=== PATIENT | male | born 1940 | race African-American/Black ===

== ENCOUNTER 2018-01-04 04:35 | Inpatient (IN) | payer MEDICARE, OTHER ==
[2018-01-04] VITALS (7 sets, daily range): BP systolic 105–130; BP diastolic 58–75
[~2018-01-04] VITALS: Ht 177.8 cm; Wt 65.8 kg
[~2018-01-04 04:35] MED LIST: ACETAMINOPHEN-1 EAC1 ORAL; AMLODIPINE BESYL5 MG ORAL; AMLODIPINE BESYL5 MG PO; BACTRIM DS TAB1 EAC1 ORAL; BACTRIM-DS1 EA ORAL; BACTRIM-DS1 EA PO; CEPHALEXIN500 MG PO; CIPROFLOXACIN500 M2 ORAL; CLOBETASOL EMOL15 GM TP; CLOTRIM ANTIFUN15 GM TP; COZAAR50 MG PO; FLOMAX0.4 MG PO; HYZAAR 100-251 EACH PO; KEFLEX500 M1 GT; KENALOG 0.1% CR15 GM APPLIC; MARINOL2.5 MG ORAL; NEURONTIN600 MG PO; NORCO 10/3251 EA ORAL; VIBRAMYCIN100 MG ORAL; VICODIN 5-5001 EACH PO; VITAMIN D250000 UNI1 ORAL; [UNRECOGNIZED DRUG - CODE] PO
[2018-01-04] MEDS ORDERED: Acetaminophen 650mg/20.3ml ONE (04:40)
[2018-01-04] MEDS ORDERED: Acetaminophen 650mg/20.3ml GT STA (04:43)
[2018-01-04] MEDS ORDERED: Acetaminophen 500mg (ES) tab ORAL ONE (04:45)
--- NOTE | 2018-01-04 05:00 | Emergency Room Report ---
History of Present Illness General Chief Complaint: Dyspnea/Respdistress Source: Family Member, Medical Record, EMS Present Illness HPI This is a 77-year-old male from shelter. He has a history of hypertension and previous CVA. He is contracted. He is a full code. He presents with chief complaint of shortness of breath. Onset today. Unknown fever. No nausea no vomiting. Per EMS he was hypoxic at 90% on room air. He received breathing treatment was putting up his oxygenation. No nausea no vomiting. No chest pain. History is limited because he is nonverbal. Allergies: Coded Allergies: HYDROMORPHONE (Unverified Allergy, Unknown, 01/04/18) Patient History Past Medical History: see triage record, old chart reviewed, HTN, CAD Past Surgical History: other Pertinent Family History: none Social History: Denies: smoking Immunizations: other Reviewed Nursing Documentation: PMH: Agreed, PSxH: Agreed Nursing Documentation-PMH Past Medical History: No History, Except For Hx Cardiac Problems: Yes Hx Hypertension: Yes Hx Cancer: No Hx Gastrointestinal Problems: No Hx Neurological Problems: No Hx Cerebrovascular Accident: Yes Review of Systems Eye: Denies: eye pain, blurred vision ENT: Denies: ear pain, nose congestion, throat swelling Respiratory: Reports: cough, shortness of breath Cardiovascular: Denies: chest pain, palpitations Gastrointestinal: Denies: abdominal pain, diarrhea, nausea, vomiting Musculoskeletal: Denies: back pain, joint pain Skin: Denies: rash Neurological: Denies: headache, numbness Endocrine: Denies: increased thirst, increased urine Hematologic/Lymphatic: Denies: easy bruising All Other Systems: negative except mentioned in HPI Physical Exam Vital Signs Date Time Temp Pulse Resp B/P (MAP) Pulse Ox O2 Delivery O2 Flow Rate FiO2 01/04/18 04:29 100.4 114 16 119/72 99 Room Air 100.4 vitals with fever, tachycardia Sp02 EP Interpretation: abnormal - repeat pulse ox is 92% on RA General Appearance: mild distress, Chronically Ill Head: normocephalic, atraumatic Eyes: bilateral eye PERRL, bilateral eye EOMI ENT: hearing grossly normal, normal pharynx Neck: no meningismus, limited range of motion - secondary to degenerative changes Respiratory: chest non-tender, respiratory distress, decreased breath sounds, accessory muscle use, crackles Cardiovascular #1: regular rate, rhythm, no murmur, tachycardia Gastrointestinal: normal bowel sounds, non tender, no mass, no organomegaly, no bruit, non-distended Musculoskeletal: back normal Neurologic: alert Psychiatric: mood/affect normal Skin: warm/dry Procedures Critical Care Time Critical Care Time Critical care is mandated in this patient who presented with respiratory distress secondary to pneumonia. Patient require my urgent intervention to attenuate the risks of metabolic collapse which may lead to cardiovascular collapse and . Critical care time is 35 minutes excluding any reportable procedure. Critical care time included evaluation, multiple reevaluation, looking at old charts, interpreting laboratory and diagnostic data, discussing case with patient and family and consultants, and charting. Medical Decision Making Diagnostic Impression: Primary Impression: Hospital-acquired pneumonia Additional Impression: Sepsis Qualified Codes: A41.9 - Sepsis, unspecified organism ER Course Patient presents with sepsis from pneumonia. I cover him for hospital-acquired pneumonia. Oxygenation much better now. Mentation better after IV fluid. I discussed case with Dr. Armando who accepted pt for admission. Sepsis reevaluation Time: 6 AM Vital signs: Temperature 98, heart rate 100, blood pressure 109/62, respiration 18, oxygenation 100% on 2 L Mental status: More alert and responsive Cardiovascular: Regular rate and rhythm Lungs: Good air movement no wheezing Abdomen: Soft Extremity: No edema Skin: No mottling Laboratory Tests Test 01/04/18 04:45 01/04/18 05:15 White Blood Count 5.9 K/UL (4.8-10.8) Red Blood Count 4.15 M/UL (4.70-6.10) L Hemoglobin 12.8 G/DL (14.2-18.0) L Hematocrit 38.8 % (42.0-52.0) L Mean Corpuscular Volume 93 FL (80-99) Mean Corpuscular Hemoglobin 30.8 PG (27.0-31.0) Mean Corpuscular Hemoglobin Concent 33.0 G/DL (32.0-36.0) Red Cell Distribution Width 13.3 % (11.6-14.8) Platelet Count 324 K/UL (150-450) Mean Platelet Volume 8.0 FL (6.5-10.1) Neutrophils (%) (Auto) 76.1 % (45.0-75.0) H Lymphocytes (%) (Auto) 13.8 % (20.0-45.0) L Monocytes (%) (Auto) 8.6 % (1.0-10.0) Eosinophils (%) (Auto) 0.3 % (0.0-3.0) Basophils (%) (Auto) 1.2 % (0.0-2.0) Prothrombin Time 10.4 SEC (9.30-11.50) Prothromb Time International Ratio 1.0 (0.9-1.1) Sodium Level 130 MMOL/L (136-145) L Potassium Level 3.7 MMOL/L (3.5-5.1) Chloride Level 96 MMOL/L (98-107) L Carbon Dioxide Level 23 MMOL/L (21-32) Anion Gap 12 mmol/L (5-15) Blood Urea Nitrogen 25 mg/dL (7-18) H Creatinine 0.9 MG/DL (0.55-1.30) Estimat Glomerular Filtration Rate mL/min (>60) Glucose Level 147 MG/DL (74-106) H Lactic Acid Level 1.80 mmol/L (0.66-2.22) Calcium Level 8.7 MG/DL (8.5-10.1) Total Bilirubin 0.5 MG/DL (0.2-1.0) Aspartate Amino Transf (AST/SGOT) 47 U/L (15-37) H Alanine Aminotransferase (ALT/SGPT) 74 U/L (12-78) Alkaline Phosphatase 91 U/L (46-116) Total Creatine Kinase 58 U/L (26-308) Creatine Kinase MB < 0.5 NG/ML (0.0-3.6) Creatine Kinase MB Relative Index 0.8 Troponin I 0.021 ng/mL (0.000-0.056) Total Protein 8.3 G/DL (6.4-8.2) H Albumin 2.9 G/DL (3.4-5.0) L Globulin 5.4 g/dL Albumin/Globulin Ratio 0.5 (1.0-2.7) L Urine Color Pending Urine Appearance Pending Urine pH Pending Urine Specific [place] Pending Urine Protein Pending Urine Glucose (UA) Pending Urine Ketones Pending Urine Occult Blood Pending Urine Nitrite Pending Urine Bilirubin Pending Urine Urobilinogen Pending Urine Leukocyte Esterase Pending Lab Results Impression labs unremarkable EKG Diagnostic Results Rate: tachycardiac Rhythm: NSR ST Segments: other - Poor R wave progression Rhythm Strip Diag. Results Rhythm Strip Time: 05:00 EP Interpretation: yes Rate: 100 Rhythm: NSR, no PVC's, no ectopy Chest X-Ray Diagnostic Results Chest X-Ray Diagnostic Results : Chest X-Ray Ordered: Yes # of Views/Limited/Complete: 1 View Indication: Shortness of Breath EP Interpretation: Yes Interpretation: no effusion, no pneumothorax, other - RUL infiltrate Impression: Other - RUL infiltrate Electronically Signed by: Connor Trammell MD Last Vital Signs Date Time Temp Pulse Resp B/P (MAP) Pulse Ox O2 Delivery O2 Flow Rate FiO2 01/04/18 04:29 100.4 114 16 119/72 99 Room Air 100.4 Status: improved Disposition: ADMITTED INPATIENT Condition: Serious CONNOR TRAMMELL M.D. Jan 04, 2018 05:00
[2018-01-04] MEDS ORDERED: Cefepime HCl 1 GM in D5W 55 ML IVPB ONE (05:15)
[2018-01-04 05:18] LABS: BASOPHILS % (AUTO) 1.2 % (0.0-2.0); EOSINOPHILS % (AUTO) 0.3 % (0.0-3.0); HEMATOCRIT 38.8 % (42.0-52.0); HEMOGLOBIN 12.8 G/DL (14.2-18.0); LYMPHOCYTES % (AUTO) 13.8 % (20.0-45.0); MEAN CORPUSCULAR VOLUME 93 FL (80-99); MONOCYTES % (AUTO) 8.6 % (1.0-10.0); NEUTROPHILS % (AUTO) 76.1 % (45.0-75.0); PLATELET COUNT 324 K/UL (150-450); RED BLOOD COUNT 4.15 M/UL (4.70-6.10); RED CELL DISTRIBUTION WIDTH 13.3 % (11.6-14.8); WHITE BLOOD COUNT 5.9 K/UL (4.8-10.8)
[2018-01-04 05:29] LABS: APPEARANCE,URINE CLEAR; BILIRUBIN, URINE NEGATIVE (NEGATIVE); GLUCOSE, URINE (UA) NEGATIVE (NEGATIVE); KETONES,URINE NEGATIVE (NEGATIVE); LEUKOCYTE ESTERASE ,URINE 1+ (NEGATIVE); NITRITE,URINE NEGATIVE (NEGATIVE); PH,URINE 5 (4.5-8.0); PROTEIN,URINE 2+ (NEGATIVE); UROBILINOGEN,URINE 1 MG/DL (0.0-1.0)
[2018-01-04] MEDS ORDERED: Cefepime 1gm vial ONE (05:29)
[2018-01-04 05:33] LABS: ANION GAP 12 mmol/L (5-15); BLOOD UREA NITROGEN 25 mg/dL (7-18); CALCIUM 8.7 MG/DL (8.5-10.1); CARBON DIOXIDE 23 MMOL/L (21-32); CHLORIDE 96 MMOL/L (98-107); CREATININE 0.9 MG/DL (0.55-1.30); POTASSIUM 3.7 MMOL/L (3.5-5.1); SODIUM 130 MMOL/L (136-145)
[2018-01-04 05:47] LABS: ALANINE AMINOTRANSFERASE 74 U/L (12-78); ALBUMIN 2.9 G/DL (3.4-5.0); ALBUMIN/GLOBULIN RATIO 0.5 (1.0-2.7); ALKALINE PHOSPHATASE 91 U/L (46-116); ASPARTATE AMINO TRANSFERASE 47 U/L (15-37); BILIRUBIN,TOTAL 0.5 MG/DL (0.2-1.0); CKMB < 0.5 NG/ML (0.0-3.6); CREATINE KINASE 58 U/L (26-308)
[2018-01-04 06:01] LABS: COLOR,URINE YELLOW
[2018-01-04] MEDS ORDERED: MILK OF MA400 MG/51 GT (06:08)
[2018-01-04] MEDS ORDERED: BACLOFEN10 MG GT (06:08)
[2018-01-04] MEDS ORDERED: BISACODYL5 MG RC (06:08)
[2018-01-04] MEDS ORDERED: TYLENOL EXTRA500 MG GT (06:08)
[2018-01-04] MEDS ORDERED: PROSCAR5 MG GT (06:08)
[2018-01-04] MEDS ORDERED: CHLORASEPTIC1 SPRAY ORAL (06:08)
[2018-01-04] MEDS ORDERED: DICLOFENAC SODI25 MG TP (06:08)
[2018-01-04] MEDS ORDERED: OMEPRAZOLE20 M2 GT (06:08)
[2018-01-04] MEDS ORDERED: ACIDOPHILUS PR0.5 MG PO (06:08)
[2018-01-04] MEDS ORDERED: CRESTOR20 MG GT (06:08)
[2018-01-04] MEDS ORDERED: MULTIVITAMINS1 EA13 GT (06:08)
[2018-01-04] MEDS ORDERED: PLAVIX75 MG GT (06:08)
[2018-01-04] MEDS ORDERED: GABAPENTIN100 MG GT (06:08)
[2018-01-04] MEDS ORDERED: DOCUSATE SODIU100 MG GT (06:08)
[2018-01-04] MEDS ORDERED: TAMSULOSIN HCL0.4 MG GT (06:08)
[2018-01-04] MEDS ORDERED: ACETAMINOPHEN-1 EAC1 ORAL (06:08)
[2018-01-04] MEDS ORDERED: VIBRAMYCIN100 MG GT (06:08)
[2018-01-04] MEDS ORDERED: SENNA8.6 M2 GT (06:08)
[2018-01-04] MEDS ORDERED: IPRATROPIU0.2 MG/1 M HHN (06:08)
[2018-01-04] MEDS ORDERED: ZOSYN MISC PRN (09:30)
[2018-01-04] MEDS ORDERED: Tylenol #3 tab (300mg/30mg) ORAL PRN (09:30)
[2018-01-04] MEDS ORDERED: Ipratropium 0.02% Inh Soln 2.5ml UD HHN PRN (09:30)
--- NOTE | 2018-01-04 12:05 | Neurology Progress Note ---
Objective Physical Exam Last Vital Signs Date Time Temp Pulse Resp B/P (MAP) Pulse Ox O2 Delivery O2 Flow Rate FiO2 01/04/18 07:46 99.5 107 17 118/73 100 Nasal Cannula 2.0 99.5 Laboratory Tests Test 01/04/18 04:45 01/04/18 05:15 White Blood Count 5.9 K/UL (4.8-10.8) Red Blood Count 4.15 M/UL (4.70-6.10) L Hemoglobin 12.8 G/DL (14.2-18.0) L Hematocrit 38.8 % (42.0-52.0) L Mean Corpuscular Volume 93 FL (80-99) Mean Corpuscular Hemoglobin 30.8 PG (27.0-31.0) Mean Corpuscular Hemoglobin Concent 33.0 G/DL (32.0-36.0) Red Cell Distribution Width 13.3 % (11.6-14.8) Platelet Count 324 K/UL (150-450) Mean Platelet Volume 8.0 FL (6.5-10.1) Neutrophils (%) (Auto) 76.1 % (45.0-75.0) H Lymphocytes (%) (Auto) 13.8 % (20.0-45.0) L Monocytes (%) (Auto) 8.6 % (1.0-10.0) Eosinophils (%) (Auto) 0.3 % (0.0-3.0) Basophils (%) (Auto) 1.2 % (0.0-2.0) Prothrombin Time 10.4 SEC (9.30-11.50) Prothromb Time International Ratio 1.0 (0.9-1.1) Sodium Level 130 MMOL/L (136-145) L Potassium Level 3.7 MMOL/L (3.5-5.1) Chloride Level 96 MMOL/L (98-107) L Carbon Dioxide Level 23 MMOL/L (21-32) Anion Gap 12 mmol/L (5-15) Blood Urea Nitrogen 25 mg/dL (7-18) H Creatinine 0.9 MG/DL (0.55-1.30) Estimat Glomerular Filtration Rate mL/min (>60) Glucose Level 147 MG/DL (74-106) H Lactic Acid Level 1.80 mmol/L (0.66-2.22) Calcium Level 8.7 MG/DL (8.5-10.1) Total Bilirubin 0.5 MG/DL (0.2-1.0) Aspartate Amino Transf (AST/SGOT) 47 U/L (15-37) H Alanine Aminotransferase (ALT/SGPT) 74 U/L (12-78) Alkaline Phosphatase 91 U/L (46-116) Total Creatine Kinase 58 U/L (26-308) Creatine Kinase MB < 0.5 NG/ML (0.0-3.6) Creatine Kinase MB Relative Index 0.8 Troponin I 0.021 ng/mL (0.000-0.056) Total Protein 8.3 G/DL (6.4-8.2) H Albumin 2.9 G/DL (3.4-5.0) L Globulin 5.4 g/dL Albumin/Globulin Ratio 0.5 (1.0-2.7) L Urine Color Yellow Urine Appearance Clear Urine pH 5 (4.5-8.0) Urine Specific [place] 1.020 (1.005-1.035) Urine Protein 2+ (NEGATIVE) H Urine Glucose (UA) Negative (NEGATIVE) Urine Ketones Negative (NEGATIVE) Urine Occult Blood 1+ (NEGATIVE) H Urine Nitrite Negative (NEGATIVE) Urine Bilirubin Negative (NEGATIVE) Urine Urobilinogen 1 MG/DL (0.0-1.0) H Urine Leukocyte Esterase 1+ (NEGATIVE) H Urine RBC 0-2 /HPF (0 - 0) H Urine WBC 0-2 /HPF (0 - 0) Urine Squamous Epithelial Cells None /LPF (NONE/OCC) Urine Bacteria Few /HPF (NONE) Impression/Recommendations Problems: (1) s/p multiple strokes with global aphasia, 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
--- NOTE | 2018-01-04 12:09 | Diagnostic Imaging Report ---
Indication: Shortness of breath Technique: One view of the chest Comparison: 02/24/2016 Findings: Exam is hypoventilatory with crowding of the bronchovascular markings at the lung bases. Lungs and pleural spaces are clear. The heart size is upper limits normal Impression: Hypoventilatory exam. No definite acute process
[2018-01-04] MEDS: Multivitamin w/Minerals tab ORAL SCH (13:11)
--- NOTE | 2018-01-04 14:19 | General Progress Note ---
Assessment/Plan Status Narrative admmitd tfor pneumina had fever chest xray nopnuem,onia hisotyro mrsa awit further rec id will do blood urine culture on broad spectrum antibviotic Subjective Allergies: Coded Allergies: HYDROMORPHONE (Unverified Allergy, Unknown, 01/04/18) Subjective patient has vbeen coughing no fever now had temp of 102 no palpitation no headache Objective Last 24 Hour Vital Signs Date Time Temp Pulse Resp B/P (MAP) Pulse Ox O2 Delivery O2 Flow Rate FiO2 01/04/18 07:46 99.5 107 17 118/73 100 Nasal Cannula 2.0 99.5 01/04/18 07:31 99.5 107 17 118/73 100 Nasal Cannula 2.0 99.5 01/04/18 07:27 99.5 01/04/18 06:21 106 19 117/61 100 Nasal Cannula 2.0 01/04/18 04:56 100.4 01/04/18 04:40 107 18 Nasal Cannula 2.0 01/04/18 04:40 100.9 107 18 125/72 100 Nasal Cannula 2.0 100.9 01/04/18 04:29 100.4 114 16 119/72 99 Room Air 100.4 Intake and Output 01/03/18 01/04/18 19:00 07:00 Intake Total 2200 ml Output Total 100 ml Balance 2100 ml Intake IV Total 2200 ml Output Urine Total 100 ml Laboratory Tests 01/04/18 04:45: White Blood Count 5.9, Red Blood Count 4.15L, Hemoglobin 12.8L, Hematocrit 38.8L , Mean Corpuscular Volume 93, Mean Corpuscular Hemoglobin 30.8, Mean Corpuscular Hemoglobin Concent 33.0, Red Cell Distribution Width 13.3, Platelet Count 324, Mean Platelet Volume 8.0, Neutrophils (%) (Auto) 76.1H, Lymphocytes ( %) (Auto) 13.8L, Monocytes (%) (Auto) 8.6, Eosinophils (%) (Auto) 0.3, Basophils (%) (Auto) 1.2, Prothrombin Time 10.4, Prothromb Time International Ratio 1.0, Sodium Level 130L, Potassium Level 3.7, Chloride Level 96L, Carbon Dioxide Level 23, Anion Gap 12, Blood Urea Nitrogen 25H, Creatinine 0.9, Estimat Glomerular Filtration Rate , Glucose Level 147H, Lactic Acid Level 1.80 , Calcium Level 8.7, Total Bilirubin 0.5, Aspartate Amino Transf (AST/SGOT) 47H , Alanine Aminotransferase (ALT/SGPT) 74, Alkaline Phosphatase 91, Total Creatine Kinase 58, Creatine Kinase MB < 0.5, Creatine Kinase MB Relative Index 0.8, Troponin I 0.021, Total Protein 8.3H, Albumin 2.9L, Globulin 5.4, Albumin/ Globulin Ratio 0.5L 01/04/18 05:15: Urine Color Yellow, Urine Appearance Clear, Urine pH 5, Urine Specific [place] 1.020, Urine Protein 2+H, Urine Glucose (UA) Negative, Urine Ketones Negative, Urine Occult Blood 1+H, Urine Nitrite Negative, Urine Bilirubin Negative, Urine Urobilinogen 1H, Urine Leukocyte Esterase 1+H, Urine RBC 0-2H, Urine WBC 0-2, Urine Squamous Epithelial Cells None, Urine Bacteria Few Height (Feet): 5 Height (Inches): 10.00 Weight (Pounds): 145 General Appearance: WD/WN EENT: PERRL/EOMI Neck: non-tender Cardiovascular: normal rate, no JVD Respiratory/Chest: lungs clear Abdomen: non tender, soft, other - has g tuber in place YANELY HAYS Jan 04, 2018 14:19
[2018-01-04] MEDS: Zoysn 3.37gm in NS 100ML IVPB SCH ×2 (14:51→19:56)
[2018-01-04] MEDS: Gabapentin 300 MG/6 ML Soln GT SCH ×2 (14:52→18:12)
--- NOTE | 2018-01-04 14:53 | Consultation ---
Consult Note Assessment/Plan Renal consult dictated # [id number] WHIT TAYLOR Jan 04, 2018 14:53
--- NOTE | 2018-01-04 15:43 | GI Initial Consult Note ---
Ivy Trammelloi N.P. 01/04/18 1543: History of Present Illness General Date patient seen: Jan 04, 2018 Time patient seen: 15:34 Reason for Hospitalization: Dyspnea/Respdistress Referring physician: YANELY HAYS Reason for Consultation: GT MANAGEMENT Present Illness HPI This is a 77-year-old male from skilled nursing. He has a history of hypertension and previous CVA. He is contracted. He is a full code. He presents with chief complaint of shortness of breath. Onset today. Unknown fever. No nausea no vomiting. Per EMS he was hypoxic at 90% on room air. He received breathing treatment was putting up his oxygenation. No nausea no vomiting. No chest pain. History is limited because he is nonverbal. GI consulted for GT management. ROS limited, pt seen on floor sleeping NAD with no active s/sx of N/V/D. GT noted c/d/i. Patient presents today with mild anemia and mild AST elevation. GT was placed last year. POLST, labs, imaging studies reviewed. Home Meds Active Scripts Clotrimazole (Clotrimazole) 15 Gm Cream..g., 1 GM TP TID, #60 GM 1 Refill Prov:NoccatherineCarey P.A. 08/14/15 Cephalexin (Cephalexin) 500 Mg Cap, 500 MG GT QID, #40 CAP Prov:Don Mcgrathyla P.A. 08/14/15 Trimethoprim/Sulfamethoxazole (Bactrim Ds Tablet) 1 Ea Tab, 1 TAB ORAL TWICE A DAY, #20 TAB Prov:NocDon alexanderCarey P.A. 08/14/15 Trimethoprim/Sulfamethoxazole 160/800* (BACTRIM DS TABLET*) 1 Each Tablet, 1 TAB ORAL Q12H, #14 TAB Prov:Yusuf Merchant MD 04/26/14 Reported Medications Cefepime Hcl/D5w (CEFEPIME-DEXTROSE 2 GM/50 ML) 2 Gm/50 Ml Piggyback, 2 GM IVPB EVERY 12 HOURS for 7 Days, BAG 01/09/18 Atorvastatin Calcium* (ATORVASTATIN CALCIUM*) 20 Mg Tablet, 20 MG ORAL BEDTIME, TAB 01/09/18 Codeine/Promethazine Hcl* (PROMETHAZINE-CODEINE SYRUP*) 118 Ml Syrup, 5 ML ORAL Q4H Y for For Cough, ML 0 Refills 01/09/18 Lansoprazole* (LANSOPRAZOLE*) 30 Mg Capsule.dr, 30 MG GT DAILY, CAP 01/09/18 Theophylline (THEODUR*) 100 Mg Tab.er.12h, 100 MG ORAL Q12HR, #30 TAB 0 Refills 01/09/18 Diclofenac Sod* (VOLTAREN*) 25 Mg Tablet.dr, 2 GM TP THREE TIMES A DAY, TAB 01/04/18 Bisacodyl* (DULCOLAX*) 5 Mg Tablet.dr, 10 MG RC NEEDED, #4 TAB 0 Refills 01/04/18 Gabapentin* (GABAPENTIN*) 100 Mg Capsule, 250 MG GT THREE TIMES A DAY, CAP 01/04/18 Magnesium Hydroxide* (MILK OF MAGNESIA*) 400 Mg/5 Ml Oral.susp, 30 ML GT DAILY, ML 01/04/18 Tamsulosin Hcl (TAMSULOSIN HCL*) 0.4 Mg Cap.er.24h, 0.4 MG GT BEDTIME, CAP 01/04/18 Finasteride* (PROSCAR*) 5 Mg Tablet, 5 MG GT DAILY, #30 TAB 0 Refills 01/04/18 Chloraseptic [place] (Sm Sore Throat [place]) 177 Ml [place], 5 SPRAY ORAL EVERY 2 HOURS, SPRAY 01/04/18 Acetaminophen* (TYLENOL EXTRA STRENGTH*) 500 Mg Tablet, 325 MG GT Q6H Y for Mild Pain/Temp > 100.5, TAB 0 Refills 01/04/18 Acetaminophen With Codeine (T#3) (TYLENOL #3 TAB*) Y Tab, 1 TAB ORAL Q6H Y for For Pain, TAB 01/04/18 Doxycycline Hyclate* (VIBRAMYCIN*) 100 Mg Capsule, 100 MG GT EVERY 12 HOURS, # 14 CAP 0 Refills 01/04/18 Omeprazole (OMEPRAZOLE) 20 Mg Capsule.dr, 20 MG GT DAILY, CAP 01/04/18 Baclofen* (BACLOFEN*) 10 Mg Tablet, 5 MG GT THREE TIMES A DAY, TAB 01/04/18 Docusate Sodium* (DOCUSATE SODIUM*) 100 Mg Capsule, 100 MG GT BID for Constipation, CAP 01/04/18 Rosuvastatin Calcium* (CRESTOR*) 20 Mg Tablet, 20 MG GT BEDTIME, TAB 01/04/18 Multivitamin with Minerals (Multivitamins with Minerals) 1 Each Tablet, 1 TAB GT DAILY, TAB 01/04/18 Lactobacillus Acidophilus (ACIDOPHILUS PROBIOTIC) 0.5 Mg Tablet, 1 MG PO, TAB 01/04/18 Ipratropium [place] 0.5MG/2.5ML (IPRATROPIUM BROMIDE 0.5MG/2.5ML) 0.2 Mg/1 Ml Solution, 0.5 MG HHN Q6H Y for Shortness of Breath, #28 EA 01/04/18 Clopidogrel Bisulfate* (PLAVIX*) 75 Mg Tablet, 75 MG GT DAILY, TAB 01/04/18 Sennosides (SENNA) 8.6 Mg Tablet, 8.6 MG GT DAILY for Constipation, TAB 01/04/18 Acetaminophen With Codeine (T#3) (TYLENOL #3 TAB*) Y Tab, 1 TAB ORAL Q4H Y for For Pain, TAB 02/24/16 Vit B Complex 100 Cmb #3/Herbs (BALANCED B-100 TABLET) 100 Mg Tablet, 100 MG PO , TAB 02/24/16 Ergocalciferol (Vitamin D2)* (VITAMIN D*) 50,000 Unit Capsule, 16867 UNIT ORAL ONCE A WEEK, CAP 02/24/16 Dronabinol* (MARINOL*) 2.5 Mg Capsule, 2.5 MG ORAL THREE TIMES A DAY, #15 CAP 0 Refills 01/18/15 Clobetasol Propionate/Emoll (CLOBETASOL EMOLLIENT 0.05% CRM) 15 Gm Cream..g., 15 GM TP BID, GM 01/14/15 Doxycycline Hyclate* (VIBRAMYCIN*) 100 Mg Capsule, 100 MG ORAL BID, #14 CAP 0 Refills 01/14/14 Amlodipine Besylate* (AMLODIPINE BESYLATE*) 5 Mg Tablet, 5 MG PO DAILY, #10 TAB Take one tablet by mouth daily 08/07/12 Losartan Potassium* (COZAAR*) 50 Mg Tablet, 50 MG PO DAILY, #20 TAB Take 1 tablet by mouth every 12 hours. 08/07/12 Gabapentin* (NEURONTIN*) 600 Mg Tablet, 600 MG PO Q8H, #20 TAB Take 1 tablet by mouth every 8 hours. 08/07/12 Med list reviewed/reconciled: Yes Allergies: Coded Allergies: HYDROMORPHONE (Unverified Allergy, Unknown, 01/04/18) Patient History Limited by: medical condition History Provided By: Medical Record PMH Narrative Past Medical History: see triage record, old chart reviewed, HTN, CAD Past Surgical History: other Pertinent Family History: none Social History: Denies: smoking Immunizations: other Reviewed Nursing Documentation: PMH: Agreed, PSxH: Agreed Nursing Documentation-PMH Past Medical History: No History, Except For Hx Cardiac Problems: Yes Hx Hypertension: Yes Hx Cancer: No Hx Gastrointestinal Problems: No Hx Neurological Problems: No Hx Cerebrovascular Accident: Yes Review of Systems All Other Systems: limited Physical Exam Vital Signs Date Time Temp Pulse Resp B/P (MAP) Pulse Ox O2 Delivery O2 Flow Rate FiO2 01/04/18 04:29 100.4 114 16 119/72 99 Room Air 100.4 01/04/18 04:40 2.0 Labs Laboratory Tests Test 01/04/18 04:45 01/04/18 05:15 White Blood Count 5.9 K/UL (4.8-10.8) Red Blood Count 4.15 M/UL (4.70-6.10) L Hemoglobin 12.8 G/DL (14.2-18.0) L Hematocrit 38.8 % (42.0-52.0) L Mean Corpuscular Volume 93 FL (80-99) Mean Corpuscular Hemoglobin 30.8 PG (27.0-31.0) Mean Corpuscular Hemoglobin Concent 33.0 G/DL (32.0-36.0) Red Cell Distribution Width 13.3 % (11.6-14.8) Platelet Count 324 K/UL (150-450) Mean Platelet Volume 8.0 FL (6.5-10.1) Neutrophils (%) (Auto) 76.1 % (45.0-75.0) H Lymphocytes (%) (Auto) 13.8 % (20.0-45.0) L Monocytes (%) (Auto) 8.6 % (1.0-10.0) Eosinophils (%) (Auto) 0.3 % (0.0-3.0) Basophils (%) (Auto) 1.2 % (0.0-2.0) Prothrombin Time 10.4 SEC (9.30-11.50) Prothromb Time International Ratio 1.0 (0.9-1.1) Sodium Level 130 MMOL/L (136-145) L Potassium Level 3.7 MMOL/L (3.5-5.1) Chloride Level 96 MMOL/L (98-107) L Carbon Dioxide Level 23 MMOL/L (21-32) Anion Gap 12 mmol/L (5-15) Blood Urea Nitrogen 25 mg/dL (7-18) H Creatinine 0.9 MG/DL (0.55-1.30) Estimat Glomerular Filtration Rate mL/min (>60) Glucose Level 147 MG/DL (74-106) H Lactic Acid Level 1.80 mmol/L (0.66-2.22) Calcium Level 8.7 MG/DL (8.5-10.1) Total Bilirubin 0.5 MG/DL (0.2-1.0) Aspartate Amino Transf (AST/SGOT) 47 U/L (15-37) H Alanine Aminotransferase (ALT/SGPT) 74 U/L (12-78) Alkaline Phosphatase 91 U/L (46-116) Total Creatine Kinase 58 U/L (26-308) Creatine Kinase MB < 0.5 NG/ML (0.0-3.6) Creatine Kinase MB Relative Index 0.8 Troponin I 0.021 ng/mL (0.000-0.056) Total Protein 8.3 G/DL (6.4-8.2) H Albumin 2.9 G/DL (3.4-5.0) L Globulin 5.4 g/dL Albumin/Globulin Ratio 0.5 (1.0-2.7) L Urine Color Yellow Urine Appearance Clear Urine pH 5 (4.5-8.0) Urine Specific [place] 1.020 (1.005-1.035) Urine Protein 2+ (NEGATIVE) H Urine Glucose (UA) Negative (NEGATIVE) Urine Ketones Negative (NEGATIVE) Urine Occult Blood 1+ (NEGATIVE) H Urine Nitrite Negative (NEGATIVE) Urine Bilirubin Negative (NEGATIVE) Urine Urobilinogen 1 MG/DL (0.0-1.0) H Urine Leukocyte Esterase 1+ (NEGATIVE) H Urine RBC 0-2 /HPF (0 - 0) H Urine WBC 0-2 /HPF (0 - 0) Urine Squamous Epithelial Cells None /LPF (NONE/OCC) Urine Bacteria Few /HPF (NONE) Gastrointestinal: gt - c/d/i Current Medications Current Medications Medications (Trade) Dose Ordered Sig/Nelson Route PRN Reason Start Time Stop Time Status Last Admin Dose Admin Acetaminophen (Tylenol) 650 mg Q6H PRN ORAL Mild Pain/Temp > 100.5 01/04/18 09:30 02/03/18 09:29 Acetaminophen/ Codeine Phosphate (Tylenol #3) 1 tab Q4H PRN ORAL Pain Scale (6-10) 01/04/18 09:30 01/11/18 09:29 Amlodipine Besylate (Norvasc) 5 mg DAILY GT 01/05/18 09:00 02/04/18 08:59 Atorvastatin Calcium (Lipitor) 20 mg BEDTIME ORAL 01/04/18 21:00 02/03/18 20:59 Baclofen (Lioresal) 5 mg THREE TIMES A DAY GT 01/04/18 13:00 02/03/18 12:59 01/04/18 13:11 Clopidogrel Bisulfate (Plavix) 75 mg DAILY GT 01/04/18 11:00 02/03/18 10:59 01/04/18 13:11 Docusate Sodium (Colace) 100 mg BID GT 01/04/18 18:00 02/03/18 17:59 Doxycycline Monohydrate (Vibramycin) 100 mg Q12HR ORAL 01/04/18 11:00 01/11/18 10:59 01/04/18 13:11 Finasteride (Proscar) 5 mg DAILY ORAL 01/04/18 12:30 02/03/18 12:29 01/04/18 13:13 Gabapentin (Neurontin) 250 mg THREE TIMES A DAY GT 01/04/18 13:00 02/03/18 12:59 01/04/18 14:52 Ipratropium [place] (Atrovent) 500 mcg Q6H PRN HHN Shortness of Breath 01/04/18 09:30 01/09/18 09:29 Lactobacillus Acidophilus (Culturelle) 1 tab TWICE A DAY ORAL 01/04/18 18:00 02/03/18 17:59 Lansoprazole (Prevacid) 30 mg DAILY GT 01/05/18 09:00 02/04/18 08:59 Multivitamins Therapeutic (Therapeutic Multivitamin) 1 ea DAILY ORAL 01/04/18 11:00 02/03/18 10:59 01/04/18 13:11 Piperacillin Sod/ Tazobactam Sod 3.375 gm/Sodium Chloride 110 ml @ 27.5 mls/hr Q8H IVPB 01/04/18 12:00 01/11/18 11:59 01/04/18 14:51 Sennosides (Senokot) 1 tab DAILY GT 01/05/18 09:00 02/04/18 08:59 Sodium Chloride 1,000 ml @ 50 mls/hr Q20H IV 01/04/18 15:00 02/03/18 14:59 01/04/18 15:23 Sodium Chloride 1,000 ml @ 80 mls/hr [id number] IV 01/04/18 11:00 02/03/18 10:59 01/04/18 13:12 Tamsulosin HCl (Flomax) 0.4 mg BEDTIME ORAL 01/04/18 21:00 02/03/18 20:59 Vancomycin HCl (Vanco rx to dose) 1 ea DAILY PRN MISC Per rx protocol 01/04/18 09:30 02/03/18 09:29 Vancomycin HCl 1 gm/Dextrose 275 ml @ 183.708 mls/hr Q12H IVPB 01/04/18 16:00 01/09/18 15:59 Vitamin B Complex (Vitamin B Complex) 1 ea DAILY GT 01/05/18 09:00 02/04/18 08:59 GI: Plan Problems: (1) G tube feedings (2) Anemia (3) Failure to thrive Plan supportive care start GTFs per RD anemia work up OB stool r/o GI bleed monitor H&H, prn transfusions bowel regime ppi fu labs Discussed with Dr. Jennings. Thank you for this patient referral, we will follow. BILLY JENNINGS 01/11/18 1237: History of Present Illness General Reason for Hospitalization: Dyspnea/Respdistress Present Illness Home Meds Active Scripts Clotrimazole (Clotrimazole) 15 Gm Cream..g., 1 GM TP TID, #60 GM 1 Refill Prov:Noch,Carey P.A. 08/14/15 Cephalexin (Cephalexin) 500 Mg Cap, 500 MG GT QID, #40 CAP Prov:Noccatherine,Carey P.A. 08/14/15 Trimethoprim/Sulfamethoxazole (Bactrim Ds Tablet) 1 Ea Tab, 1 TAB ORAL TWICE A DAY, #20 TAB Prov:Carey Mcgrath P.A. 08/14/15 Trimethoprim/Sulfamethoxazole 160/800* (BACTRIM DS TABLET*) 1 Each Tablet, 1 TAB ORAL Q12H, #14 TAB Prov:Yusuf Merchant MD 04/26/14 Reported Medications Cefepime Hcl/D5w (CEFEPIME-DEXTROSE 2 GM/50 ML) 2 Gm/50 Ml Piggyback, 2 GM IVPB EVERY 12 HOURS for 7 Days, BAG 01/09/18 Atorvastatin Calcium* (ATORVASTATIN CALCIUM*) 20 Mg Tablet, 20 MG ORAL BEDTIME, TAB 01/09/18 Codeine/Promethazine Hcl* (PROMETHAZINE-CODEINE SYRUP*) 118 Ml Syrup, 5 ML ORAL Q4H Y for For Cough, ML 0 Refills 01/09/18 Lansoprazole* (LANSOPRAZOLE*) 30 Mg Capsule.dr, 30 MG GT DAILY, CAP 01/09/18 Theophylline (THEODUR*) 100 Mg Tab.er.12h, 100 MG ORAL Q12HR, #30 TAB 0 Refills 01/09/18 Diclofenac Sod* (VOLTAREN*) 25 Mg Tablet.dr, 2 GM TP THREE TIMES A DAY, TAB 01/04/18 Bisacodyl* (DULCOLAX*) 5 Mg Tablet.dr, 10 MG RC NEEDED, #4 TAB 0 Refills 01/04/18 Gabapentin* (GABAPENTIN*) 100 Mg Capsule, 250 MG GT THREE TIMES A DAY, CAP 01/04/18 Magnesium Hydroxide* (MILK OF MAGNESIA*) 400 Mg/5 Ml Oral.susp, 30 ML GT DAILY, ML 01/04/18 Tamsulosin Hcl (TAMSULOSIN HCL*) 0.4 Mg Cap.er.24h, 0.4 MG GT BEDTIME, CAP 01/04/18 Finasteride* (PROSCAR*) 5 Mg Tablet, 5 MG GT DAILY, #30 TAB 0 Refills 01/04/18 Chloraseptic [place] (Sm Sore Throat [place]) 177 Ml [place], 5 SPRAY ORAL EVERY 2 HOURS, SPRAY 01/04/18 Acetaminophen* (TYLENOL EXTRA STRENGTH*) 500 Mg Tablet, 325 MG GT Q6H Y for Mild Pain/Temp > 100.5, TAB 0 Refills 01/04/18 Acetaminophen With Codeine (T#3) (TYLENOL #3 TAB*) Y Tab, 1 TAB ORAL Q6H Y for For Pain, TAB 01/04/18 Doxycycline Hyclate* (VIBRAMYCIN*) 100 Mg Capsule, 100 MG GT EVERY 12 HOURS, # 14 CAP 0 Refills 01/04/18 Omeprazole (OMEPRAZOLE) 20 Mg Capsule.dr, 20 MG GT DAILY, CAP 01/04/18 Baclofen* (BACLOFEN*) 10 Mg Tablet, 5 MG GT THREE TIMES A DAY, TAB 01/04/18 Docusate Sodium* (DOCUSATE SODIUM*) 100 Mg Capsule, 100 MG GT BID for Constipation, CAP 01/04/18 Rosuvastatin Calcium* (CRESTOR*) 20 Mg Tablet, 20 MG GT BEDTIME, TAB 01/04/18 Multivitamin with Minerals (Multivitamins with Minerals) 1 Each Tablet, 1 TAB GT DAILY, TAB 01/04/18 Lactobacillus Acidophilus (ACIDOPHILUS PROBIOTIC) 0.5 Mg Tablet, 1 MG PO, TAB 01/04/18 Ipratropium [place] 0.5MG/2.5ML (IPRATROPIUM BROMIDE 0.5MG/2.5ML) 0.2 Mg/1 Ml Solution, 0.5 MG HHN Q6H Y for Shortness of Breath, #28 EA 01/04/18 Clopidogrel Bisulfate* (PLAVIX*) 75 Mg Tablet, 75 MG GT DAILY, TAB 01/04/18 Sennosides (SENNA) 8.6 Mg Tablet, 8.6 MG GT DAILY for Constipation, TAB 01/04/18 Acetaminophen With Codeine (T#3) (TYLENOL #3 TAB*) Y Tab, 1 TAB ORAL Q4H Y for For Pain, TAB 02/24/16 Vit B Complex 100 Cmb #3/Herbs (BALANCED B-100 TABLET) 100 Mg Tablet, 100 MG PO , TAB 02/24/16 Ergocalciferol (Vitamin D2)* (VITAMIN D*) 50,000 Unit Capsule, 64337 UNIT ORAL ONCE A WEEK, CAP 02/24/16 Dronabinol* (MARINOL*) 2.5 Mg Capsule, 2.5 MG ORAL THREE TIMES A DAY, #15 CAP 0 Refills 01/18/15 Clobetasol Propionate/Emoll (CLOBETASOL EMOLLIENT 0.05% CRM) 15 Gm Cream..g., 15 GM TP BID, GM 01/14/15 Doxycycline Hyclate* (VIBRAMYCIN*) 100 Mg Capsule, 100 MG ORAL BID, #14 CAP 0 Refills 01/14/14 Amlodipine Besylate* (AMLODIPINE BESYLATE*) 5 Mg Tablet, 5 MG PO DAILY, #10 TAB Take one tablet by mouth daily 08/07/12 Losartan Potassium* (COZAAR*) 50 Mg Tablet, 50 MG PO DAILY, #20 TAB Take 1 tablet by mouth every 12 hours. 08/07/12 Gabapentin* (NEURONTIN*) 600 Mg Tablet, 600 MG PO Q8H, #20 TAB Take 1 tablet by mouth every 8 hours. 08/07/12 Allergies: Coded Allergies: HYDROMORPHONE (Unverified Allergy, Unknown, 01/04/18) GI: Plan Plan The patient was seen and examined at bedside and all new and available data was reviewed in the patients chart. I agree with the above findings, impression and plan. (Patient seen earlier today. Signature stamp does not reflect patient encounter time.). - MD Valeri Vital Anh Suhas Echols Jan 04, 2018 15:43 BILLY JENNINGS Jan 11, 2018 12:37
[2018-01-04] MEDS: Vancomycin 1gm in D5W 275ml IVPB SCH (16:54)
--- NOTE | 2018-01-04 17:36 | Cardiology Report ---
APPROVED REPORT EKG Measurement Heart [id number] Sinus tachycardia Septal infarct, age undetermined Abnormal ECG
[2018-01-04] MEDS: Docusate 100mg/10ml Liq GT SCH (18:11)
[2018-01-04] MEDS: Lactobacillus-GG tablet ORAL SCH (18:11)
--- NOTE | 2018-01-04 19:00 | Consultation ---
DATE OF CONSULTATION: 01/04/2018 NEUROLOGICAL CONSULTATION CONSULTING PHYSICIAN: Bairon Ruiz M.D. REQUESTING PHYSICIAN: Segun Armando M.D. HISTORY OF PRESENT ILLNESS: The patient is a 77-year-old man, a resident of nursing facility, seen in neurological consultation to evaluate new changes in mental status, generalized weakness, increasingly shortness of breath, and fevers. Paramedics were called to the scene; he was hypoxic, 90% on room air; put on oxygen support. The patient was unable to provide with history due to his speech impairment. There was no evidence that he has nausea and vomiting. No chest pain. On arrival, there was evidence of cough, shortness of breath, temperature 100.4 degrees, blood pressure 119/72, respirations 16, and heart rate of 114. His initial workup included EKG revealing normal sinus rhythm, tachycardia. No PVC. No ectopies noted. Chest x-ray right upper lobe infiltrate. Lab work included mild anemia, hemoglobin 12.8, hematocrit 38.8. Coagulation normal. Urinalysis, 1+ leukocyte esterase and 2+ protein. Chemistry panel with elevated total protein of 8.3, albumin 2.9, blood sugar 147, BUN of 25, and sodium 130. Normal lactic acid. Normal troponin. Since admission till present, there was no evidence of paroxysmal events. PAST MEDICAL HISTORY: The patient has cerebrovascular disease, previous strokes. He is on G tube feeding. He has diabetes type 2, hypertension, GERD, benign prostatic hypertrophy, and severe osteoarthritis. MEDICATIONS: Treatment prior to admission included amlodipine, baclofen, Keflex, Plavix, Voltaren, Marinol, vitamin D, Proscar, Neurontin, losartan, magnesium, omeprazole, Crestor, tamsulosin, Bactrim, and vitamin B supplements. Following admission, the patient was placed on IV fluids and antibiotics to cover underlying infection. ALLERGIES: Hydromorphone. SOCIAL HISTORY: The patient is a resident of nursing facility, but has supportive family. No alcohol. No drug abuse. Nonsmoker. FAMILY HISTORY: Unavailable. REVIEW OF SYMPTOMS: Unable to obtain due the patient's status. PHYSICAL EXAMINATION: GENERAL: A well-developed, somewhat cachectic, ill-appearing elderly man, not in acute distress. VITAL SIGNS: Now include heart rate of 107, temperature 99.5 degrees, and blood pressure 119/73. HEENT: Head, normocephalic. There is no evidence of trauma. Eyes, ears, and throat are clear. NECK: Very rigid in all directions. MUSCULOSKELETAL: Contracted left upper and right lower extremities, diffuse rigidity. Peripheral pulses 1+ and symmetric. MENTAL STATUS: The patient is alert, has a brief eye contact. He was following few simple commands. He is nonverbal, but at times moaning and groaning. CRANIAL NERVE II: Pupils both responding to light and accommodation. Extraocular movements full range. CRANIAL NERVE V: Normal corneal responses. CRANIAL NERVE VII: Slight droop of nasolabial fold. CRANIAL NERVE VIII: Grossly normal hearing, probably decreased hearing. CRANIAL NERVES IX THROUGH XII: Tongue is in midline. Reduced gag response. The patient on G-tube feeding. MOTOR EXAMINATION: Severe diffuse rigidity with flexor contracture of left upper extremity without spontaneous movement. Rigid flexed right upper extremity with some spontaneous movement, right knee contracted with flexor contraction, and extended the left lower extremity. No spontaneous movement. Deep tendon reflexes are depressed. Positive Babinski on the left. SENSORY EXAM: Withdrawing to pin both lower extremities only. IMPRESSION: 1. 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 2. Acute encephalopathy secondary to underlying infection. 3. Pneumonia, rule out sepsis. 4. Hypotension. 5. Coronary artery disease. 6. Degenerative joint disease. DISCUSSION: The patient has pre-existent severe cerebrovascular disease with quadriparesis more on the left and significant aphasia. Now, he developed signs of pneumonia, sepsis, affecting level of his consciousness. The patient to continue with current treatment. Avoid sedating treatment. Continue with IV fluids and antibiotics as per attending. Baseline CT of the brain. Thank you for allowing me to see this interesting patient in neurological consultation. Bairon Ruiz M.D. DR: BLANCHE JOB#: [id number] CC:
[2018-01-04] MEDS: Oseltamivir 75mg cap ORAL SCH (20:50)
[2018-01-04] MEDS: Atorvastatin 20mg tab ORAL SCH (20:51)
[2018-01-04] MEDS: Tamsulosin 0.4mg cap ORAL SCH (20:51)
--- NOTE | 2018-01-04 22:45 | Consultation ---
DATE OF CONSULTATION: 01/04/2018 NEPHROLOGY CONSULTATION CONSULTING PHYSICIAN: Levi Ansari M.D. REFERRING PHYSICIAN: Segun Armando M.D. REASON FOR CONSULTATION: Hyponatremia and proteinuria. HISTORY: This is a 77-year-old male, who reportedly had a temperature of 102 in the [facility]. The patient was sent to the emergency room where he was diagnosed with pneumonia and was admitted. Apparently, he had also hypoxemia with an O2 saturation of 90% on room air. I was asked to see him because of his hyponatremia with a serum sodium of 130. Also, he has 2+ protein in the urine. His BUN and creatinine are 25 and 0.9. PAST MEDICAL HISTORY: Includes history of hypertension and coronary artery disease. ALLERGIES: Reported to hydromorphone. SOCIAL HISTORY: No history of smoking or alcohol abuse. REVIEW OF SYSTEMS: Noncontributory. PHYSICAL EXAMINATION: GENERAL: The patient is an elderly male, in no acute distress. VITAL SIGNS: Blood pressure is 119/73, pulse 107, respiratory rate 17, and temperature 99.5. HEENT: [place] conjunctivae. Anicteric sclerae. NECK: Supple. LUNGS: Clear to auscultation. HEART: S1, S2 without murmurs or rubs. ABDOMEN: Soft and nontender. EXTREMITIES: No cyanosis or edema. LABORATORY FINDINGS: The chemistry panel shows a serum sodium 130, potassium 3.7, chloride 96, CO2 23, BUN is 25, creatinine 0.9, and blood sugar is 147. UA shows 2+ protein. CBC shows a WBC of 5.9, hematocrit 38.8, hemoglobin 12.8, and platelets is 324,000. ASSESSMENT: This is a 77-year-old male, who is admitted with fevers, diagnosed with pneumonia plus hyponatremia possibly with volume depletion although syndrome of inappropriate antidiuretic hormone secretion cannot be ruled out. Also, he has some proteinuria and the question is if he has underlying chronic kidney disease. PLAN: I would hydrate the patient cautiously with normal saline. Urine studies will be done for workup of hyponatremia. The patient will be on antibiotics. Case was discussed with Dr. Armando. Thank you very much, Dr. Armando, for this consultation. Levi Ansari M.D. DR: QUANG JOB#: [id number] CC:
[2018-01-05] VITALS: BP 125/59
[2018-01-05] MEDS: Vancomycin 1gm in D5W 275ml IVPB SCH ×2 (03:38→16:59)
[2018-01-05] MEDS: Zoysn 3.37gm in NS 100ML IVPB SCH ×3 (03:52→21:37)
[2018-01-05 04:00] VITALS: BP 125/62
[2018-01-05 08:00] VITALS: BP 123/64
[2018-01-05 08:21] LABS: INR 1.1 (0.9-1.1)
[2018-01-05 08:33] LABS: HEMATOCRIT 27.5 % (42.0-52.0); HEMOGLOBIN 9.1 G/DL (14.2-18.0); MEAN CORPUSCULAR VOLUME 94 FL (80-99); PLATELET COUNT 258 K/UL (150-450); RED BLOOD COUNT 2.92 M/UL (4.70-6.10); RED CELL DISTRIBUTION WIDTH 13.5 % (11.6-14.8); WHITE BLOOD COUNT 3.4 K/UL (4.8-10.8)
[2018-01-05 08:54] LABS: ANION GAP 9 mmol/L (5-15); BLOOD UREA NITROGEN 16 mg/dL (7-18); CALCIUM 6.8 MG/DL (8.5-10.1); CARBON DIOXIDE 21 MMOL/L (21-32); CHLORIDE 104 MMOL/L (98-107); CREATININE 0.7 MG/DL (0.55-1.30); FERRITIN 776 NG/ML (8-388); POTASSIUM 3.4 MMOL/L (3.5-5.1); SODIUM 133 MMOL/L (136-145)
[2018-01-05 08:58] LABS: % IRON SATURATION 7 % (15-50); IRON 9 ug/dL (50-175); TOTAL IRON BINDING CAPACITY 126 ug/dL (250-450)
[2018-01-05] MEDS: Docusate 100mg/10ml Liq GT SCH ×2 (09:34→17:11)
[2018-01-05] MEDS: Sennosides 8.6mg GT SCH (09:36)
[2018-01-05] MEDS: Lactobacillus-GG tablet ORAL SCH ×2 (09:39→17:11)
[2018-01-05] MEDS: Oseltamivir 75mg cap ORAL SCH ×2 (09:46→21:38)
[2018-01-05] MEDS: Gabapentin 300 MG/6 ML Soln GT SCH ×3 (09:46→17:12)
[2018-01-05] MEDS: Multivitamin w/Minerals tab ORAL SCH (09:48)
--- NOTE | 2018-01-05 10:22 | Consultation ---
History of Present Illness General Date patient seen: Jan 05, 2018 Time patient seen: 10:12 Chief Complaint: Dyspnea/Respdistress Referring physician: YANELY HAYS Reason for Consultation: GT MANAGEMENT Present Illness HPI 77 y/o M with hx of HTN, CAD, CVA, dysphagia s/p GT, Dm2, BPH, severe OA, custodial resident presents to ED on 01/04 with Fever up to 102, mild hypoxia 90% at RA, hyponatremia, AMS, generalized weakness, cough and SOB. in ED T 100.4 , CXR showed RUL infiltrate. No nausea, vomiting, CP Allergies: Coded Allergies: HYDROMORPHONE (Unverified Allergy, Unknown, 01/04/18) Medication History Scheduled Amlodipine Besylate* (Amlodipine Besylate*), 5 MG PO DAILY, (Reported) Baclofen* (Baclofen*), 5 MG GT THREE TIMES A DAY, (Reported) Bisacodyl* (Dulcolax*), 10 MG RC NEEDED, (Reported) Cephalexin (Cephalexin), 500 MG GT QID Chloraseptic [place] (Sm Sore Throat [place]), 5 SPRAY ORAL EVERY 2 HOURS, (Reported ) Clobetasol Propionate/Emoll (Clobetasol Emollient 0.05% Crm), 15 GM TP BID, ( Reported) Clopidogrel Bisulfate* (Plavix*), 75 MG GT DAILY, (Reported) Clotrimazole (Clotrimazole), 1 GM TP TID Diclofenac Sod* (Voltaren*), 2 GM TP THREE TIMES A DAY, (Reported) Docusate Sodium* (Docusate Sodium*), 100 MG GT BID, (Reported) Doxycycline Hyclate* (Vibramycin*), 100 MG ORAL BID, (Reported) Doxycycline Hyclate* (Vibramycin*), 100 MG GT EVERY 12 HOURS, (Reported) Dronabinol* (Marinol*), 2.5 MG ORAL THREE TIMES A DAY, (Reported) Ergocalciferol (Vitamin D2)* (Vitamin D*), 50,000 UNIT ORAL ONCE A WEEK, ( Reported) Finasteride* (Proscar*), 5 MG GT DAILY, (Reported) Gabapentin* (Neurontin*), 600 MG PO Q8H, (Reported) Gabapentin* (Gabapentin*), 250 MG GT THREE TIMES A DAY, (Reported) Losartan Potassium* (Cozaar*), 50 MG PO DAILY, (Reported) Magnesium Hydroxide* (Milk Of Magnesia*), 30 ML GT DAILY, (Reported) Multivitamin with Minerals (Multivitamins with Minerals), 1 TAB GT DAILY, ( Reported) Omeprazole (Omeprazole), 20 MG GT DAILY, (Reported) Rosuvastatin Calcium* (Crestor*), 20 MG GT BEDTIME, (Reported) Sennosides (Senna), 8.6 MG GT DAILY, (Reported) Tamsulosin Hcl (Tamsulosin Hcl*), 0.4 MG GT BEDTIME, (Reported) Trimethoprim/Sulfamethoxazole (Bactrim Ds Tablet), 1 TAB ORAL TWICE A DAY Trimethoprim/Sulfamethoxazole 160/800* (Bactrim Ds Tablet*), 1 TAB ORAL Q12H Scheduled PRN Acetaminophen With Codeine (T#3) (Tylenol #3 Tab*), 1 TAB ORAL Q4H PRN for For Pain, (Reported) Acetaminophen With Codeine (T#3) (Tylenol #3 Tab*), 1 TAB ORAL Q6H PRN for For Pain, (Reported) Acetaminophen* (Tylenol Extra Strength*), 325 MG GT Q6H PRN for Mild Pain/Temp > 100.5, (Reported) Ipratropium [place] 0.5MG/2.5ML (Ipratropium [place] 0.5MG/2.5ML), 0.5 MG HHN Q6H PRN for Shortness of Breath, (Reported) Miscellaneous Medications Lactobacillus Acidophilus (Acidophilus Probiotic), 1 MG PO, (Reported) Vit B Complex 100 Cmb #3/Herbs (Balanced B-100 Tablet), 100 MG PO, (Reported) Patient History Healthcare decision maker Resuscitation status Full Code Advanced Directive on File Patient History Narrative Pmhx: as above Shx: No history of smoking or alcohol abuse. Fhx: non contributory Review of Systems All Other Systems: negative except mentioned in HPI Physical Exam Physical Exam Narrative GENERAL: The patient is an elderly male, in no acute distress. HEENT: [place] conjunctivae. Anicteric sclerae. NECK: Supple. LUNGS: Clear to auscultation. HEART: S1, S2 without murmurs or rubs. ABDOMEN: Soft and nontender. EXTREMITIES: No cyanosis or edema. Last 24 Hour Vital Signs Date Time Temp Pulse Resp B/P (MAP) Pulse Ox O2 Delivery O2 Flow Rate FiO2 01/05/18 09:48 101 123/64 01/05/18 08:00 101.1 101 20 123/64 96 Nasal Cannula 2.0 101.1 01/05/18 07:53 100 19 Room Air 01/05/18 04:00 103 01/05/18 04:00 97.2 99 20 125/62 96 Nasal Cannula 2.0 97.2 01/05/18 00:00 98.0 106 20 125/59 98 Nasal Cannula 2.0 98.0 01/05/18 00:00 105 01/04/18 20:00 94 01/04/18 20:00 99.0 96 20 124/63 97 Nasal Cannula 2.0 99.0 01/04/18 16:00 94 01/04/18 16:00 99.5 88 20 110/75 98 Nasal Cannula 2.0 99.5 01/04/18 12:00 98 01/04/18 12:00 98.1 87 20 130/69 99 Nasal Cannula 2.0 98.1 Intake and Output 01/04/18 01/05/18 19:00 07:00 Intake Total 1355 ml 1730.000 ml Output Total 1000 ml 700 ml Balance 355 ml 1030.000 ml Intake Free Water 200 ml 100 ml IV Total 835 ml 890.000 ml Tube Feeding 320 ml 740 ml Output Urine Total 1000 ml 700 ml # Bowel Movements 1 1 Laboratory Tests Test 01/04/18 20:50 01/05/18 05:00 01/05/18 06:42 Urine Osmolality 735 mOsm/kg (429-449) H Urine Random Sodium 135 mmol/L (20-110) H Stool Occult Blood Pending White Blood Count 3.4 K/UL (4.8-10.8) L Red Blood Count 2.92 M/UL (4.70-6.10) L Hemoglobin 9.1 G/DL (14.2-18.0) L Hematocrit 27.5 % (42.0-52.0) L Mean Corpuscular Volume 94 FL (80-99) Mean Corpuscular Hemoglobin 31.4 PG (27.0-31.0) H Mean Corpuscular Hemoglobin Concent 33.2 G/DL (32.0-36.0) Red Cell Distribution Width 13.5 % (11.6-14.8) Platelet Count 258 K/UL (150-450) Mean Platelet Volume 7.6 FL (6.5-10.1) Neutrophils (%) (Auto) % (45.0-75.0) Lymphocytes (%) (Auto) % (20.0-45.0) Monocytes (%) (Auto) % (1.0-10.0) Eosinophils (%) (Auto) % (0.0-3.0) Basophils (%) (Auto) % (0.0-2.0) Neutrophils % (Manual) Pending Lymphocytes % (Manual) Pending Platelet Estimate Pending Platelet Morphology Pending Reticulocyte Count Pending Prothrombin Time 11.3 SEC (9.30-11.50) Prothromb Time International Ratio 1.1 (0.9-1.1) Activated Partial Thromboplast Time 30 SEC (23-33) Sodium Level 133 MMOL/L (136-145) L Potassium Level 3.4 MMOL/L (3.5-5.1) L Chloride Level 104 MMOL/L (98-107) Carbon Dioxide Level 21 MMOL/L (21-32) Anion Gap 9 mmol/L (5-15) Blood Urea Nitrogen 16 mg/dL (7-18) Creatinine 0.7 MG/DL (0.55-1.30) Estimat Glomerular Filtration Rate mL/min (>60) Glucose Level 128 MG/DL (74-106) H Calcium Level 6.8 MG/DL (8.5-10.1) #L Iron Level 9 ug/dL (50-175) L Total Iron Binding Capacity 126 ug/dL (250-450) L Percent Iron Saturation 7 % (15-50) L Unsaturated Iron Binding 117 ug/dL (112-346) Ferritin 776 NG/ML (8-388) H Vitamin B12 Level 494 PG/ML (193-986) Vitamin D 25-Hydroxy Pending 25-Hydroxy Vitamin D2 Pending 25-Hydroxy Vitamin D3 Pending Folate 37.5 NG/ML (8.6-58.9) Thyroid Stimulating Hormone (TSH) 0.720 uiU/mL (0.358-3.740) Free Thyroxine 1.03 NG/DL (0.76-1.46) Height (Feet): 5 Height (Inches): 10.00 Weight (Pounds): 145 Medications Current Medications Medications (Trade) Dose Ordered Sig/Nelson Route PRN Reason Start Time Stop Time Status Last Admin Dose Admin Acetaminophen (Tylenol) 650 mg Q6H PRN ORAL Mild Pain/Temp > 100.5 01/04/18 09:30 02/03/18 09:29 Acetaminophen/ Codeine Phosphate (Tylenol #3) 1 tab Q4H PRN ORAL Pain Scale (6-10) 01/04/18 09:30 01/11/18 09:29 01/05/18 09:42 Amlodipine Besylate (Norvasc) 5 mg DAILY GT 01/05/18 09:00 02/04/18 08:59 01/05/18 09:48 Atorvastatin Calcium (Lipitor) 20 mg BEDTIME ORAL 01/04/18 21:00 02/03/18 20:59 01/04/18 20:51 Baclofen (Lioresal) 5 mg THREE TIMES A DAY GT 01/04/18 13:00 02/03/18 12:59 01/05/18 09:36 Clopidogrel Bisulfate (Plavix) 75 mg DAILY GT 01/04/18 11:00 02/03/18 10:59 01/05/18 09:36 Docusate Sodium (Colace) 100 mg BID GT 01/04/18 18:00 02/03/18 17:59 01/05/18 09:34 Doxycycline Monohydrate (Vibramycin) 100 mg Q12HR ORAL 01/04/18 11:00 01/11/18 10:59 01/05/18 09:36 Finasteride (Proscar) 5 mg DAILY ORAL 01/04/18 12:30 02/03/18 12:29 01/05/18 09:46 Gabapentin (Neurontin) 250 mg THREE TIMES A DAY GT 01/04/18 13:00 02/03/18 12:59 01/05/18 09:46 Ipratropium [place] (Atrovent) 500 mcg Q6H PRN HHN Shortness of Breath 01/04/18 09:30 01/09/18 09:29 Iron Sucrose 100 mg/Sodium Chloride 60 ml @ 240 mls/hr BEDTIME IVPB 01/05/18 21:00 01/09/18 21:14 Lactobacillus Acidophilus (Culturelle) 1 tab TWICE A DAY ORAL 01/04/18 18:00 02/03/18 17:59 01/05/18 09:39 Lansoprazole (Prevacid) 30 mg DAILY GT 01/05/18 09:00 02/04/18 08:59 01/05/18 09:39 Multivitamins Therapeutic (Therapeutic Multivitamin) 1 ea DAILY ORAL 01/04/18 11:00 02/03/18 10:59 01/05/18 09:48 Oseltamivir Phosphate (Tamiflu) 75 mg Q12HR ORAL 01/04/18 20:00 01/09/18 23:59 01/05/18 09:46 Piperacillin Sod/ Tazobactam Sod 3.375 gm/Sodium Chloride 110 ml @ 27.5 mls/hr Q8H IVPB 01/04/18 12:00 01/11/18 11:59 01/05/18 03:52 Sennosides (Senokot) 1 tab DAILY GT 01/05/18 09:00 02/04/18 08:59 01/05/18 09:36 Sodium Chloride 1,000 ml @ 50 mls/hr Q20H IV 01/04/18 15:00 02/03/18 14:59 01/04/18 15:23 Tamsulosin HCl (Flomax) 0.4 mg BEDTIME ORAL 01/04/18 21:00 02/03/18 20:59 01/04/18 20:51 Vancomycin HCl (Vanco rx to dose) 1 ea DAILY PRN MISC Per rx protocol 01/04/18 09:30 02/03/18 09:29 Vancomycin HCl 1 gm/Dextrose 275 ml @ 183.708 mls/hr Q12H IVPB 01/04/18 16:00 01/09/18 15:59 01/05/18 03:38 Vitamin B Complex (Vitamin B Complex) 1 ea DAILY GT 01/05/18 09:00 02/04/18 08:59 01/05/18 09:36 Assessment/Plan Assessment/Plan Abx: IV Vanco 01/04- Zosyn 01/04- Cefepime x1 01/04 Levaquin x1 01/04 Tamiflu 01/04- Assessment: Acute respiratory distress- possible PNA (although no obvious infiltrates on CXR ), suspifion of Flu depiste neg sc test given high fevers, leukopenia -CXR: Hypoventilatory exam. No definite acute process -Influenza sc neg -sp cx p Fever -u./a neg -Bcx NTD Leukopenia, mild Hyponatremia HTN CAD CVA, multiple - w/ residual quadriparesis dysphagia s/p GT Dm2 BPH severe OA custodial resident Plan: -Continue empiric IV Vanco and Zosyn for now pending cultures -Continue empiric Tamiflu #2/5 -d/c Doxycycline #2 -f/u cx -Monitor CBC/CMP, temperatures -CXR am Thank you for this consultation. Will continue to follow along with you. Discussed with SERGIO. Avril Zaragoza M.D. Jan 05, 2018 10:22
--- NOTE | 2018-01-05 10:25 | GI Progress Note ---
Assessment/Plan Problems: (1) G tube feedings ICD Codes: Z93.1 - Gastrostomy status SNOMED: 429896206, 925244674 (2) Failure to thrive ICD Codes: R62.51 - Failure to thrive (child) SNOMED: 64926216 (3) Anemia ICD Codes: D64.9 - Anemia SNOMED: 775978912 Status: stable Status Narrative Discussed with Dr. Thompsno. Assessment/Plan supportive care GTFs per RD anemia work up >> iron deficient >> venofer OB stool r/o GI bleed pending monitor H&H, prn transfusions bowel regime ppi fu labs Subjective Subjective limited, NAD Objective Last 24 Hour Vital Signs Date Time Temp Pulse Resp B/P (MAP) Pulse Ox O2 Delivery O2 Flow Rate FiO2 01/05/18 09:48 101 123/64 01/05/18 08:00 101.1 101 20 123/64 96 Nasal Cannula 2.0 101.1 01/05/18 07:53 100 19 Room Air 01/05/18 04:00 103 01/05/18 04:00 97.2 99 20 125/62 96 Nasal Cannula 2.0 97.2 01/05/18 00:00 98.0 106 20 125/59 98 Nasal Cannula 2.0 98.0 01/05/18 00:00 105 01/04/18 20:00 94 01/04/18 20:00 99.0 96 20 124/63 97 Nasal Cannula 2.0 99.0 01/04/18 16:00 94 01/04/18 16:00 99.5 88 20 110/75 98 Nasal Cannula 2.0 99.5 01/04/18 12:00 98 01/04/18 12:00 98.1 87 20 130/69 99 Nasal Cannula 2.0 98.1 Intake and Output 01/04/18 01/05/18 19:00 07:00 Intake Total 1355 ml 1730.000 ml Output Total 1000 ml 700 ml Balance 355 ml 1030.000 ml Intake Free Water 200 ml 100 ml IV Total 835 ml 890.000 ml Tube Feeding 320 ml 740 ml Output Urine Total 1000 ml 700 ml # Bowel Movements 1 1 Laboratory Tests Test 01/04/18 20:50 01/05/18 05:00 01/05/18 06:42 Urine Osmolality 735 mOsm/kg (429-449) H Urine Random Sodium 135 mmol/L (20-110) H Stool Occult Blood Pending White Blood Count 3.4 K/UL (4.8-10.8) L Red Blood Count 2.92 M/UL (4.70-6.10) L Hemoglobin 9.1 G/DL (14.2-18.0) L Hematocrit 27.5 % (42.0-52.0) L Mean Corpuscular Volume 94 FL (80-99) Mean Corpuscular Hemoglobin 31.4 PG (27.0-31.0) H Mean Corpuscular Hemoglobin Concent 33.2 G/DL (32.0-36.0) Red Cell Distribution Width 13.5 % (11.6-14.8) Platelet Count 258 K/UL (150-450) Mean Platelet Volume 7.6 FL (6.5-10.1) Neutrophils (%) (Auto) % (45.0-75.0) Lymphocytes (%) (Auto) % (20.0-45.0) Monocytes (%) (Auto) % (1.0-10.0) Eosinophils (%) (Auto) % (0.0-3.0) Basophils (%) (Auto) % (0.0-2.0) Neutrophils % (Manual) Pending Lymphocytes % (Manual) Pending Platelet Estimate Pending Platelet Morphology Pending Reticulocyte Count Pending Prothrombin Time 11.3 SEC (9.30-11.50) Prothromb Time International Ratio 1.1 (0.9-1.1) Activated Partial Thromboplast Time 30 SEC (23-33) Sodium Level 133 MMOL/L (136-145) L Potassium Level 3.4 MMOL/L (3.5-5.1) L Chloride Level 104 MMOL/L (98-107) Carbon Dioxide Level 21 MMOL/L (21-32) Anion Gap 9 mmol/L (5-15) Blood Urea Nitrogen 16 mg/dL (7-18) Creatinine 0.7 MG/DL (0.55-1.30) Estimat Glomerular Filtration Rate mL/min (>60) Glucose Level 128 MG/DL (74-106) H Calcium Level 6.8 MG/DL (8.5-10.1) #L Iron Level 9 ug/dL (50-175) L Total Iron Binding Capacity 126 ug/dL (250-450) L Percent Iron Saturation 7 % (15-50) L Unsaturated Iron Binding 117 ug/dL (112-346) Ferritin 776 NG/ML (8-388) H Vitamin B12 Level 494 PG/ML (193-986) Vitamin D 25-Hydroxy Pending 25-Hydroxy Vitamin D2 Pending 25-Hydroxy Vitamin D3 Pending Folate 37.5 NG/ML (8.6-58.9) Thyroid Stimulating Hormone (TSH) 0.720 uiU/mL (0.358-3.740) Free Thyroxine 1.03 NG/DL (0.76-1.46) Height (Feet): 5 Height (Inches): 10.00 Weight (Pounds): 145 General Appearance: alert Cardiovascular: normal rate Respiratory/Chest: normal breath sounds, no respiratory distress, other - 2LNC Abdominal Exam: soft, GT site - c/d/i, other Ivy Trammell N.P. Jan 05, 2018 10:25
[2018-01-05 12:00] VITALS: BP 125/62
--- NOTE | 2018-01-05 12:47 | Consultation ---
History of Present Illness General Date patient seen: Jan 05, 2018 Chief Complaint: Dyspnea/Respdistress Referring physician: YANELY HAYS Reason for Consultation: GT MANAGEMENT Present Illness HPI 77-year-old male with PMHx of hypertension and previous CVA contracted, full code presented with chief complaint of shortness of breath for one day. He was hypoxic at 90% on room air in the field. He received breathing treatment and oxygen and transported to [facility]. He was febrile in ER with tachycardia , and borderline hypotension. He is admitted to telemetry for further management. Allergies: Coded Allergies: HYDROMORPHONE (Unverified Allergy, Unknown, 01/04/18) Medication History Scheduled Amlodipine Besylate* (Amlodipine Besylate*), 5 MG PO DAILY, (Reported) Baclofen* (Baclofen*), 5 MG GT THREE TIMES A DAY, (Reported) Bisacodyl* (Dulcolax*), 10 MG RC NEEDED, (Reported) Cephalexin (Cephalexin), 500 MG GT QID Chloraseptic [place] (Sm Sore Throat [place]), 5 SPRAY ORAL EVERY 2 HOURS, (Reported ) Clobetasol Propionate/Emoll (Clobetasol Emollient 0.05% Crm), 15 GM TP BID, ( Reported) Clopidogrel Bisulfate* (Plavix*), 75 MG GT DAILY, (Reported) Clotrimazole (Clotrimazole), 1 GM TP TID Diclofenac Sod* (Voltaren*), 2 GM TP THREE TIMES A DAY, (Reported) Docusate Sodium* (Docusate Sodium*), 100 MG GT BID, (Reported) Doxycycline Hyclate* (Vibramycin*), 100 MG ORAL BID, (Reported) Doxycycline Hyclate* (Vibramycin*), 100 MG GT EVERY 12 HOURS, (Reported) Dronabinol* (Marinol*), 2.5 MG ORAL THREE TIMES A DAY, (Reported) Ergocalciferol (Vitamin D2)* (Vitamin D*), 50,000 UNIT ORAL ONCE A WEEK, ( Reported) Finasteride* (Proscar*), 5 MG GT DAILY, (Reported) Gabapentin* (Neurontin*), 600 MG PO Q8H, (Reported) Gabapentin* (Gabapentin*), 250 MG GT THREE TIMES A DAY, (Reported) Losartan Potassium* (Cozaar*), 50 MG PO DAILY, (Reported) Magnesium Hydroxide* (Milk Of Magnesia*), 30 ML GT DAILY, (Reported) Multivitamin with Minerals (Multivitamins with Minerals), 1 TAB GT DAILY, ( Reported) Omeprazole (Omeprazole), 20 MG GT DAILY, (Reported) Rosuvastatin Calcium* (Crestor*), 20 MG GT BEDTIME, (Reported) Sennosides (Senna), 8.6 MG GT DAILY, (Reported) Tamsulosin Hcl (Tamsulosin Hcl*), 0.4 MG GT BEDTIME, (Reported) Trimethoprim/Sulfamethoxazole (Bactrim Ds Tablet), 1 TAB ORAL TWICE A DAY Trimethoprim/Sulfamethoxazole 160/800* (Bactrim Ds Tablet*), 1 TAB ORAL Q12H Scheduled PRN Acetaminophen With Codeine (T#3) (Tylenol #3 Tab*), 1 TAB ORAL Q4H PRN for For Pain, (Reported) Acetaminophen With Codeine (T#3) (Tylenol #3 Tab*), 1 TAB ORAL Q6H PRN for For Pain, (Reported) Acetaminophen* (Tylenol Extra Strength*), 325 MG GT Q6H PRN for Mild Pain/Temp > 100.5, (Reported) Ipratropium [place] 0.5MG/2.5ML (Ipratropium [place] 0.5MG/2.5ML), 0.5 MG HHN Q6H PRN for Shortness of Breath, (Reported) Miscellaneous Medications Lactobacillus Acidophilus (Acidophilus Probiotic), 1 MG PO, (Reported) Vit B Complex 100 Cmb #3/Herbs (Balanced B-100 Tablet), 100 MG PO, (Reported) Patient History Healthcare decision maker Resuscitation status Full Code Advanced Directive on File Past Medical/Surgical History Past Medical/Surgical History: (1) Advanced dementia (2) History of CVA (cerebrovascular accident) (3) G tube feedings Review of Systems All Other Systems: negative except mentioned in HPI Physical Exam General Appearance: cachetic Lines, tubes and drains: central line HEENT: normocephalic Neck: non-tender, normal alignment Respiratory/Chest: chest wall non-tender, lungs clear Breasts: no masses Cardiovascular/Chest: normal peripheral pulses Abdomen: normal bowel sounds, non tender, no organomegaly Extremities: normal range of motion Skin Exam: normal pigmentation Last 24 Hour Vital Signs Date Time Temp Pulse Resp B/P (MAP) Pulse Ox O2 Delivery O2 Flow Rate FiO2 01/05/18 09:48 101 123/64 01/05/18 08:00 109 01/05/18 08:00 101.1 101 20 123/64 96 Nasal Cannula 2.0 101.1 01/05/18 07:53 100 19 Room Air 01/05/18 04:00 103 01/05/18 04:00 97.2 99 20 125/62 96 Nasal Cannula 2.0 97.2 01/05/18 00:00 98.0 106 20 125/59 98 Nasal Cannula 2.0 98.0 01/05/18 00:00 105 01/04/18 20:00 94 01/04/18 20:00 99.0 96 20 124/63 97 Nasal Cannula 2.0 99.0 01/04/18 16:00 94 01/04/18 16:00 99.5 88 20 110/75 98 Nasal Cannula 2.0 99.5 Intake and Output 01/04/18 01/05/18 19:00 07:00 Intake Total 1355 ml 1730.000 ml Output Total 1000 ml 700 ml Balance 355 ml 1030.000 ml Intake Free Water 200 ml 100 ml IV Total 835 ml 890.000 ml Tube Feeding 320 ml 740 ml Output Urine Total 1000 ml 700 ml # Bowel Movements 1 1 Laboratory Tests Test 01/04/18 20:50 01/05/18 05:00 01/05/18 06:42 Urine Osmolality 735 mOsm/kg (429-449) H Urine Random Sodium 135 mmol/L (20-110) H Stool Occult Blood Negative (NEGATIVE) White Blood Count 3.4 K/UL (4.8-10.8) L Red Blood Count 2.92 M/UL (4.70-6.10) L Hemoglobin 9.1 G/DL (14.2-18.0) L Hematocrit 27.5 % (42.0-52.0) L Mean Corpuscular Volume 94 FL (80-99) Mean Corpuscular Hemoglobin 31.4 PG (27.0-31.0) H Mean Corpuscular Hemoglobin Concent 33.2 G/DL (32.0-36.0) Red Cell Distribution Width 13.5 % (11.6-14.8) Platelet Count 258 K/UL (150-450) Mean Platelet Volume 7.6 FL (6.5-10.1) Neutrophils (%) (Auto) % (45.0-75.0) Lymphocytes (%) (Auto) % (20.0-45.0) Monocytes (%) (Auto) % (1.0-10.0) Eosinophils (%) (Auto) % (0.0-3.0) Basophils (%) (Auto) % (0.0-2.0) Differential Total Cells Counted 100 Neutrophils % (Manual) 69 % (45-75) Lymphocytes % (Manual) 18 % (20-45) L Monocytes % (Manual) 10 % (1-10) Eosinophils % (Manual) 3 % (0-3) Basophils % (Manual) 0 % (0-2) Band Neutrophils 0 % (0-8) Platelet Estimate Adequate Platelet Morphology Normal Anisocytosis 1+ Reticulocyte Count 0.7 % (0.0-2.0) Prothrombin Time 11.3 SEC (9.30-11.50) Prothromb Time International Ratio 1.1 (0.9-1.1) Activated Partial Thromboplast Time 30 SEC (23-33) Sodium Level 133 MMOL/L (136-145) L Potassium Level 3.4 MMOL/L (3.5-5.1) L Chloride Level 104 MMOL/L (98-107) Carbon Dioxide Level 21 MMOL/L (21-32) Anion Gap 9 mmol/L (5-15) Blood Urea Nitrogen 16 mg/dL (7-18) Creatinine 0.7 MG/DL (0.55-1.30) Estimat Glomerular Filtration Rate mL/min (>60) Glucose Level 128 MG/DL (74-106) H Calcium Level 6.8 MG/DL (8.5-10.1) #L Iron Level 9 ug/dL (50-175) L Total Iron Binding Capacity 126 ug/dL (250-450) L Percent Iron Saturation 7 % (15-50) L Unsaturated Iron Binding 117 ug/dL (112-346) Ferritin 776 NG/ML (8-388) H Vitamin B12 Level 494 PG/ML (193-986) Vitamin D 25-Hydroxy Pending 25-Hydroxy Vitamin D2 Pending 25-Hydroxy Vitamin D3 Pending Folate 37.5 NG/ML (8.6-58.9) Thyroid Stimulating Hormone (TSH) 0.720 uiU/mL (0.358-3.740) Free Thyroxine 1.03 NG/DL (0.76-1.46) Height (Feet): 5 Height (Inches): 10.00 Weight (Pounds): 145 Medications Current Medications Medications (Trade) Dose Ordered Sig/Nelson Route PRN Reason Start Time Stop Time Status Last Admin Dose Admin Acetaminophen (Tylenol) 650 mg Q6H PRN ORAL Mild Pain/Temp > 100.5 01/04/18 09:30 02/03/18 09:29 Acetaminophen/ Codeine Phosphate (Tylenol #3) 1 tab Q4H PRN ORAL Pain Scale (6-10) 01/04/18 09:30 01/11/18 09:29 01/05/18 09:42 Amlodipine Besylate (Norvasc) 5 mg DAILY GT 01/05/18 09:00 02/04/18 08:59 01/05/18 09:48 Atorvastatin Calcium (Lipitor) 20 mg BEDTIME ORAL 01/04/18 21:00 02/03/18 20:59 01/04/18 20:51 Baclofen (Lioresal) 5 mg THREE TIMES A DAY GT 01/04/18 13:00 02/03/18 12:59 01/05/18 09:36 Clopidogrel Bisulfate (Plavix) 75 mg DAILY GT 01/04/18 11:00 02/03/18 10:59 01/05/18 09:36 Docusate Sodium (Colace) 100 mg BID GT 01/04/18 18:00 02/03/18 17:59 01/05/18 09:34 Finasteride (Proscar) 5 mg DAILY ORAL 01/04/18 12:30 02/03/18 12:29 01/05/18 09:46 Gabapentin (Neurontin) 250 mg THREE TIMES A DAY GT 01/04/18 13:00 02/03/18 12:59 01/05/18 09:46 Ipratropium [place] (Atrovent) 500 mcg Q6H PRN HHN Shortness of Breath 01/04/18 09:30 01/09/18 09:29 Iron Sucrose 100 mg/Sodium Chloride 60 ml @ 240 mls/hr BEDTIME IVPB 01/05/18 21:00 01/09/18 21:14 Lactobacillus Acidophilus (Culturelle) 1 tab TWICE A DAY ORAL 01/04/18 18:00 02/03/18 17:59 01/05/18 09:39 Lansoprazole (Prevacid) 30 mg DAILY GT 01/05/18 09:00 02/04/18 08:59 01/05/18 09:39 Multivitamins Therapeutic (Therapeutic Multivitamin) 1 ea DAILY ORAL 01/04/18 11:00 02/03/18 10:59 01/05/18 09:48 Oseltamivir Phosphate (Tamiflu) 75 mg Q12HR ORAL 01/04/18 20:00 01/09/18 23:59 01/05/18 09:46 Piperacillin Sod/ Tazobactam Sod 3.375 gm/Sodium Chloride 110 ml @ 27.5 mls/hr Q8H IVPB 01/04/18 12:00 01/11/18 11:59 01/05/18 03:52 Sennosides (Senokot) 1 tab DAILY GT 01/05/18 09:00 02/04/18 08:59 01/05/18 09:36 Sodium Chloride 1,000 ml @ 50 mls/hr Q20H IV 01/04/18 15:00 02/03/18 14:59 01/05/18 11:58 Tamsulosin HCl (Flomax) 0.4 mg BEDTIME ORAL 01/04/18 21:00 02/03/18 20:59 01/04/18 20:51 Vancomycin HCl (Vanco rx to dose) 1 ea DAILY PRN MISC Per rx protocol 01/04/18 09:30 02/03/18 09:29 Vancomycin HCl 1 gm/Dextrose 275 ml @ 183.708 mls/hr Q12H IVPB 01/04/18 16:00 01/09/18 15:59 01/05/18 03:38 Vitamin B Complex (Vitamin B Complex) 1 ea DAILY GT 01/05/18 09:00 02/04/18 08:59 01/05/18 09:36 Assessment/Plan Problem List: (1) Healthcare-associated pneumonia ICD Codes: J18.9 - Pneumonia, unspecified organism SNOMED: 289896837 (2) Sepsis ICD Codes: A41.9 - Sepsis, unspecified organism SNOMED: 84864041 Qualifiers: Qualified Codes: A41.9 - Sepsis, unspecified organism (3) UTI (urinary tract infection) ICD Codes: N39.0 - Urinary tract infection, site not specified SNOMED: 17242352 (4) At high risk for aspiration ICD Codes: Z91.89 - Other specified personal risk factors, not elsewhere classified SNOMED: 330340206 (5) History of CVA (cerebrovascular accident) ICD Codes: Z86.73 - Personal history of transient ischemic attack (TIA), and cerebral infarction without residual deficits SNOMED: 650689164 (6) Advanced dementia ICD Codes: F03.90 - Unspecified dementia without behavioral disturbance SNOMED: 62615374 (7) G tube feedings ICD Codes: Z93.1 - Gastrostomy status SNOMED: 922007182, 297798270 Assessment/Plan zamora cultures iv fluids iv abx check cultures check sputum titrate fio2 to sat of 92% dvt prophylaxis. chest pt sputum induction Sowmya Abbasi MD Jan 05, 2018 12:47
[2018-01-05] MEDS ORDERED: Promethazine/Codeine 5ml UD ORAL PRN (13:00)
--- NOTE | 2018-01-05 13:10 | Nephrology Progress Note ---
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, old (6) Arthritis (7) G tube feedings Plan cont with NS abxs follow labs TF discussed with RN Subjective Subjective In NAD Objective Objective Last 24 Hour Vital Signs Date Time Temp Pulse Resp B/P (MAP) Pulse Ox O2 Delivery O2 Flow Rate FiO2 01/05/18 09:48 101 123/64 01/05/18 08:00 109 01/05/18 08:00 101.1 101 20 123/64 96 Nasal Cannula 2.0 101.1 01/05/18 07:53 100 19 Room Air 01/05/18 04:00 103 01/05/18 04:00 97.2 99 20 125/62 96 Nasal Cannula 2.0 97.2 01/05/18 00:00 98.0 106 20 125/59 98 Nasal Cannula 2.0 98.0 01/05/18 00:00 105 01/04/18 20:00 94 01/04/18 20:00 99.0 96 20 124/63 97 Nasal Cannula 2.0 99.0 01/04/18 16:00 94 01/04/18 16:00 99.5 88 20 110/75 98 Nasal Cannula 2.0 99.5 Intake and Output 01/04/18 01/05/18 19:00 07:00 Intake Total 1355 ml 1730.000 ml Output Total 1000 ml 700 ml Balance 355 ml 1030.000 ml Intake Free Water 200 ml 100 ml IV Total 835 ml 890.000 ml Tube Feeding 320 ml 740 ml Output Urine Total 1000 ml 700 ml # Bowel Movements 1 1 Laboratory Tests 01/04/18 20:50: Urine Osmolality 735H, Urine Random Sodium 135H 01/05/18 05:00: Stool Occult Blood Negative 01/05/18 06:42: White Blood Count 3.4L, Red Blood Count 2.92L, Hemoglobin 9.1L, Hematocrit 27.5L , Mean Corpuscular Volume 94, Mean Corpuscular Hemoglobin 31.4H, Mean Corpuscular Hemoglobin Concent 33.2, Red Cell Distribution Width 13.5, Platelet Count 258, Mean Platelet Volume 7.6, Neutrophils (%) (Auto) , Lymphocytes (%) ( Auto) , Monocytes (%) (Auto) , Eosinophils (%) (Auto) , Basophils (%) (Auto) , Differential Total Cells Counted 100, Neutrophils % (Manual) 69, Lymphocytes % ( Manual) 18L, Monocytes % (Manual) 10, Eosinophils % (Manual) 3, Basophils % ( Manual) 0, Band Neutrophils 0, Platelet Estimate Adequate, Platelet Morphology Normal, Anisocytosis 1+, Reticulocyte Count 0.7, Prothrombin Time 11.3, Prothromb Time International Ratio 1.1, Activated Partial Thromboplast Time 30, Sodium Level 133L, Potassium Level 3.4L, Chloride Level 104, Carbon Dioxide Level 21, Anion Gap 9, Blood Urea Nitrogen 16, Creatinine 0.7, Estimat Glomerular Filtration Rate , Glucose Level 128H, Calcium Level 6.8#L, Iron Level 9L, Total Iron Binding Capacity 126L, Percent Iron Saturation 7L, Unsaturated Iron Binding 117, Ferritin 776H, Vitamin B12 Level 494, Vitamin D 25 -Hydroxy [Pending], 25-Hydroxy Vitamin D2 [Pending], 25-Hydroxy Vitamin D3 [ Pending], Folate 37.5, Thyroid Stimulating Hormone (TSH) 0.720, Free Thyroxine 1.03 Height (Feet): 5 Height (Inches): 10.00 Weight (Pounds): 145 Cardiovascular: normal rate Respiratory/Chest: lungs clear Extremities: other - no edema WHIT TAYLOR Jan 05, 2018 13:10
--- NOTE | 2018-01-05 15:03 | General Progress Note ---
Assessment/Plan Status Narrative chest xray no pnauemonia repeat chest xray await id rec antibioti cper id ABND PULMONARY MONITOR [facility] Subjective Date patient seen: Jan 05, 2018 Time patient seen: 15:02 Constitutional: Reports: no symptoms Respiratory: Reports: no symptoms Allergies: Coded Allergies: HYDROMORPHONE (Unverified Allergy, Unknown, 01/04/18) Subjective patient has vbeen coughing no fever now had temp of 102 no palpitation no headache Objective Last 24 Hour Vital Signs Date Time Temp Pulse Resp B/P (MAP) Pulse Ox O2 Delivery O2 Flow Rate FiO2 01/05/18 12:00 89 01/05/18 09:48 101 123/64 01/05/18 08:00 109 01/05/18 08:00 101.1 101 20 123/64 96 Nasal Cannula 2.0 101.1 01/05/18 07:53 100 19 Room Air 01/05/18 04:00 103 01/05/18 04:00 97.2 99 20 125/62 96 Nasal Cannula 2.0 97.2 01/05/18 00:00 98.0 106 20 125/59 98 Nasal Cannula 2.0 98.0 01/05/18 00:00 105 01/04/18 20:00 94 01/04/18 20:00 99.0 96 20 124/63 97 Nasal Cannula 2.0 99.0 01/04/18 16:00 94 01/04/18 16:00 99.5 88 20 110/75 98 Nasal Cannula 2.0 99.5 Intake and Output 01/04/18 01/05/18 19:00 07:00 Intake Total 1355 ml 1730.000 ml Output Total 1000 ml 700 ml Balance 355 ml 1030.000 ml Intake Free Water 200 ml 100 ml IV Total 835 ml 890.000 ml Tube Feeding 320 ml 740 ml Output Urine Total 1000 ml 700 ml # Bowel Movements 1 1 Laboratory Tests 01/04/18 20:50: Urine Osmolality 735H, Urine Random Sodium 135H 01/05/18 05:00: Stool Occult Blood Negative 01/05/18 06:42: White Blood Count 3.4L, Red Blood Count 2.92L, Hemoglobin 9.1L, Hematocrit 27.5L , Mean Corpuscular Volume 94, Mean Corpuscular Hemoglobin 31.4H, Mean Corpuscular Hemoglobin Concent 33.2, Red Cell Distribution Width 13.5, Platelet Count 258, Mean Platelet Volume 7.6, Neutrophils (%) (Auto) , Lymphocytes (%) ( Auto) , Monocytes (%) (Auto) , Eosinophils (%) (Auto) , Basophils (%) (Auto) , Differential Total Cells Counted 100, Neutrophils % (Manual) 69, Lymphocytes % ( Manual) 18L, Monocytes % (Manual) 10, Eosinophils % (Manual) 3, Basophils % ( Manual) 0, Band Neutrophils 0, Platelet Estimate Adequate, Platelet Morphology Normal, Anisocytosis 1+, Reticulocyte Count 0.7, Prothrombin Time 11.3, Prothromb Time International Ratio 1.1, Activated Partial Thromboplast Time 30, Sodium Level 133L, Potassium Level 3.4L, Chloride Level 104, Carbon Dioxide Level 21, Anion Gap 9, Blood Urea Nitrogen 16, Creatinine 0.7, Estimat Glomerular Filtration Rate , Glucose Level 128H, Calcium Level 6.8#L, Iron Level 9L, Total Iron Binding Capacity 126L, Percent Iron Saturation 7L, Unsaturated Iron Binding 117, Ferritin 776H, Vitamin B12 Level 494, Vitamin D 25 -Hydroxy [Pending], 25-Hydroxy Vitamin D2 [Pending], 25-Hydroxy Vitamin D3 [ Pending], Folate 37.5, Thyroid Stimulating Hormone (TSH) 0.720, Free Thyroxine 1.03 Height (Feet): 5 Height (Inches): 10.00 Weight (Pounds): 145 General Appearance: no apparent distress Neck: non-tender Cardiovascular: no JVD Respiratory/Chest: lungs clear Abdomen: soft YANELY HAYS Jan 05, 2018 15:03
[2018-01-05 16:00] VITALS: BP 109/69
[2018-01-05 20:00] VITALS: BP 103/60
[2018-01-05] MEDS ORDERED: Iron Sucrose 100 MG in NS 55 ML IVPB SCH (21:00)
[2018-01-05] MEDS: Tamsulosin 0.4mg cap ORAL SCH (21:38)
[2018-01-05] MEDS: Atorvastatin 20mg tab ORAL SCH (21:38)
[2018-01-05] MEDS: Theophylline ER 100mg ORAL SCH (21:38)
[2018-01-06] VITALS: BP 105/67
[2018-01-06 04:00] VITALS: BP 114/66
[2018-01-06] MEDS: Zoysn 3.37gm in NS 100ML IVPB SCH ×2 (04:37→12:14)
[2018-01-06] MEDS: Vancomycin 1gm in D5W 275ml IVPB SCH (04:38)
[2018-01-06 07:56] LABS: BASOPHILS % (AUTO) 0.4 % (0.0-2.0); EOSINOPHILS % (AUTO) 2.2 % (0.0-3.0); HEMATOCRIT 27.8 % (42.0-52.0); HEMOGLOBIN 9.3 G/DL (14.2-18.0); LYMPHOCYTES % (AUTO) 23.2 % (20.0-45.0); MEAN CORPUSCULAR VOLUME 93 FL (80-99); MONOCYTES % (AUTO) 12.4 % (1.0-10.0); NEUTROPHILS % (AUTO) 61.9 % (45.0-75.0); PLATELET COUNT 214 K/UL (150-450); RED BLOOD COUNT 2.98 M/UL (4.70-6.10); RED CELL DISTRIBUTION WIDTH 13.4 % (11.6-14.8); WHITE BLOOD COUNT 3.8 K/UL (4.8-10.8)
[2018-01-06 08:00] VITALS: BP 124/52
[2018-01-06 08:16] LABS: ANION GAP 20 mmol/L (5-15); BLOOD UREA NITROGEN 13 mg/dL (7-18); CALCIUM 6.7 MG/DL (8.5-10.1); CARBON DIOXIDE 20 MMOL/L (21-32); CHLORIDE 107 MMOL/L (98-107); CREATININE 0.9 MG/DL (0.55-1.30); SODIUM 147 MMOL/L (136-145)
--- NOTE | 2018-01-06 09:01 | Diagnostic Imaging Report ---
Indication: Cough Technique: One view of the chest Comparison: 01/04/2018 Findings: Exam is hypoventilatory, as previously. There is atelectasis at both lung bases. The lungs and pleural spaces are otherwise clear. The heart is upper limits normal in size. The aorta is tortuous and ectatic Impression: Hypoventilatory exam with bibasilar atelectasis. No significant acid changer 2 days. No acute process
[2018-01-06] MEDS: Theophylline ER 100mg ORAL SCH ×2 (09:36→20:10)
[2018-01-06] MEDS: Multivitamin w/Minerals tab ORAL SCH (09:36)
[2018-01-06] MEDS: Sennosides 8.6mg GT SCH (09:36)
[2018-01-06] MEDS: Docusate 100mg/10ml Liq GT SCH ×2 (09:36→18:40)
[2018-01-06] MEDS: Tamsulosin 0.4mg cap ORAL SCH ×2 (09:37→20:10)
[2018-01-06] MEDS: Lactobacillus-GG tablet ORAL SCH ×2 (09:37→18:40)
[2018-01-06] MEDS: Oseltamivir 75mg cap ORAL SCH ×2 (09:41→20:10)
--- NOTE | 2018-01-06 09:44 | Nephrology Progress Note ---
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, old (6) Arthritis (7) G tube feedings (8) Hypokalemia Plan Dc IVF replete K abxs follow labs TF discussed with daughter Subjective Subjective In NAD Objective Objective Last 24 Hour Vital Signs Date Time Temp Pulse Resp B/P (MAP) Pulse Ox O2 Delivery O2 Flow Rate FiO2 01/06/18 08:04 95 20 Nasal Cannula 2.0 28 01/06/18 04:00 90 01/06/18 04:00 98.6 91 20 114/66 100 Nasal Cannula 2.0 98.6 01/06/18 01:40 98.6 01/06/18 00:41 100.6 01/06/18 00:00 88 01/06/18 00:00 100.6 89 20 105/67 99 Nasal Cannula 2.0 100.6 01/05/18 20:00 92 01/05/18 20:00 100.6 92 20 103/60 98 Nasal Cannula 2.0 100.6 01/05/18 19:10 94 20 Nasal Cannula 2.0 28 01/05/18 16:00 99.1 101 20 109/69 98 Nasal Cannula 2.0 99.1 01/05/18 16:00 100 01/05/18 12:00 89 01/05/18 12:00 99.5 96 20 125/62 96 Nasal Cannula 2.0 99.5 01/05/18 09:48 101 123/64 Intake and Output 01/05/18 01/06/18 19:00 07:00 Intake Total 1863.7 ml 1571.000 ml Output Total 200 ml 1800 ml Balance 1663.7 ml -229.000 ml Intake Free Water 120 ml 150 ml IV Total 843.7 ml 521.000 ml Tube Feeding 900 ml 900 ml Output Urine Total 200 ml 1800 ml Laboratory Tests 01/06/18 06:40: White Blood Count 3.8L, Red Blood Count 2.98L, Hemoglobin 9.3L, Hematocrit 27.8L , Mean Corpuscular Volume 93, Mean Corpuscular Hemoglobin 31.1H, Mean Corpuscular Hemoglobin Concent 33.3, Red Cell Distribution Width 13.4, Platelet Count 214, Mean Platelet Volume 7.5, Neutrophils (%) (Auto) 61.9, Lymphocytes (% ) (Auto) 23.2, Monocytes (%) (Auto) 12.4H, Eosinophils (%) (Auto) 2.2, Basophils (%) (Auto) 0.4, Sodium Level 147#H, Potassium Level 3.0L, Chloride Level 107, Carbon Dioxide Level 20L, Anion Gap 20H, Blood Urea Nitrogen 13, Creatinine 0.9, Estimat Glomerular Filtration Rate , Glucose Level 160H, Calcium Level 6.7L Height (Feet): 5 Height (Inches): 10.00 Weight (Pounds): 145 Cardiovascular: normal rate Respiratory/Chest: lungs clear Extremities: other - no edema WHIT TAYLOR Jan 06, 2018 09:44
[2018-01-06] MEDS: Gabapentin 300 MG/6 ML Soln GT SCH ×3 (09:59→18:54)
--- NOTE | 2018-01-06 10:33 | GI Progress Note ---
Assessment/Plan Problems: (1) G tube feedings ICD Codes: Z93.1 - Gastrostomy status SNOMED: 204511320, 689159032 (2) Failure to thrive ICD Codes: R62.51 - Failure to thrive (child) SNOMED: 87662907 (3) Anemia ICD Codes: D64.9 - Anemia SNOMED: 040551642 Status: progressing Status Narrative Discussed with Dr. Thompson. Assessment/Plan OB stool negative supportive care GTFs per RD anemia work up >> iron deficient >> venofer monitor H&H, prn transfusions bowel regime ppi fu labs Subjective Subjective limited, NAD Objective Last 24 Hour Vital Signs Date Time Temp Pulse Resp B/P (MAP) Pulse Ox O2 Delivery O2 Flow Rate FiO2 01/06/18 09:37 95 114/66 01/06/18 08:04 95 20 Nasal Cannula 2.0 28 01/06/18 04:00 90 01/06/18 04:00 98.6 91 20 114/66 100 Nasal Cannula 2.0 98.6 01/06/18 01:40 98.6 01/06/18 00:41 100.6 01/06/18 00:00 88 01/06/18 00:00 100.6 89 20 105/67 99 Nasal Cannula 2.0 100.6 01/05/18 20:00 92 01/05/18 20:00 100.6 92 20 103/60 98 Nasal Cannula 2.0 100.6 01/05/18 19:10 94 20 Nasal Cannula 2.0 28 01/05/18 16:00 99.1 101 20 109/69 98 Nasal Cannula 2.0 99.1 01/05/18 16:00 100 01/05/18 12:00 89 01/05/18 12:00 99.5 96 20 125/62 96 Nasal Cannula 2.0 99.5 Intake and Output 01/05/18 01/06/18 19:00 07:00 Intake Total 1863.7 ml 1571.000 ml Output Total 200 ml 1800 ml Balance 1663.7 ml -229.000 ml Intake Free Water 120 ml 150 ml IV Total 843.7 ml 521.000 ml Tube Feeding 900 ml 900 ml Output Urine Total 200 ml 1800 ml Laboratory Tests Test 01/06/18 06:40 White Blood Count 3.8 K/UL (4.8-10.8) L Red Blood Count 2.98 M/UL (4.70-6.10) L Hemoglobin 9.3 G/DL (14.2-18.0) L Hematocrit 27.8 % (42.0-52.0) L Mean Corpuscular Volume 93 FL (80-99) Mean Corpuscular Hemoglobin 31.1 PG (27.0-31.0) H Mean Corpuscular Hemoglobin Concent 33.3 G/DL (32.0-36.0) Red Cell Distribution Width 13.4 % (11.6-14.8) Platelet Count 214 K/UL (150-450) Mean Platelet Volume 7.5 FL (6.5-10.1) Neutrophils (%) (Auto) 61.9 % (45.0-75.0) Lymphocytes (%) (Auto) 23.2 % (20.0-45.0) Monocytes (%) (Auto) 12.4 % (1.0-10.0) H Eosinophils (%) (Auto) 2.2 % (0.0-3.0) Basophils (%) (Auto) 0.4 % (0.0-2.0) Sodium Level 147 MMOL/L (136-145) #H Potassium Level 3.0 MMOL/L (3.5-5.1) L Chloride Level 107 MMOL/L (98-107) Carbon Dioxide Level 20 MMOL/L (21-32) L Anion Gap 20 mmol/L (5-15) H Blood Urea Nitrogen 13 mg/dL (7-18) Creatinine 0.9 MG/DL (0.55-1.30) Estimat Glomerular Filtration Rate mL/min (>60) Glucose Level 160 MG/DL (74-106) H Calcium Level 6.7 MG/DL (8.5-10.1) L Height (Feet): 5 Height (Inches): 10.00 Weight (Pounds): 145 General Appearance: WD/WN, no apparent distress, alert Cardiovascular: normal rate Respiratory/Chest: normal breath sounds, no respiratory distress Abdominal Exam: normal bowel sounds, non tender, soft, GT site - c/d/i Extremities: non-tender Ivy Trammell N.PJavier Jan 06, 2018 10:33
[2018-01-06 12:00] VITALS: BP 130/86
--- NOTE | 2018-01-06 12:24 | Wound Care Consultation ---
Wound Assessment Wound Assessment #1: Wound Number: 1 Wound Present on Admission: Yes New Wound: No Status Change of Wound: No Wound Location Body Site Modif: right Wound Location Body Site: heel Wound Type: pressure ulcer [place] Test: Does not [place] Pressure Ulcer Stage: Deep Tissue Injury Wound Thickness: Full Thickness Wound Length: 3.5 Wound Width: 4.5 Wound Depth: utd Percent of Wound Purple/Maroon: 100 Wound Drainage Amount: None Wound Drainage Odor: None/Absent Tissue Surrounding Wound: Intact Wound General Appearance: Reddened Wound Assessment #2: Wound Number: 2 Wound Present on Admission: Yes New Wound: No Status Change of Wound: No Wound Location Body Site: perineal area Wound Type: chemical burn [place] Test: Does not [place] Percent of Wound [place]/Red: 100 Wound Drainage Amount: None Wound Drainage Odor: None/Absent Tissue Surrounding Wound: Erythemic Wound General Appearance: Reddened - maroon Wound Assessment #3: Wound Number: 3 Wound Present on Admission: Yes New Wound: No Status Change of Wound: No Wound Location Body Site Modif: left Wound Location Body Site: heel Wound Type: pressure ulcer [place] Test: Does not [place] Pressure Ulcer Stage: Deep Tissue Injury Wound Thickness: Full Thickness Wound Length: 2.0 Wound Width: 2.0 Wound Depth: utd Percent of Wound Purple/Maroon: 100 Wound Drainage Amount: None Wound Drainage Odor: None/Absent Tissue Surrounding Wound: Intact Wound General Appearance: Reddened - maroon Wound Assessment #4: Wound Number: 4 Wound Present on Admission: Yes New Wound: No Status Change of Wound: No Wound Location Body Site: other - sacrococcygeal Wound Type: pressure ulcer [place] Test: Does not [place] Wound Thickness: Full Thickness Wound Length: 6.5 Wound Width: 6.5 Wound Depth: utd Percent of Wound [place]/Red: 100 Wound Drainage Amount: None Wound Drainage Odor: None/Absent Tissue Surrounding Wound: Intact Wound General Appearance: Reddened Wound Assessment #5: Wound Number: 5 Wound Present on Admission: Yes New Wound: No Status Change of Wound: No Wound Location Body Site Modif: right Wound Location Body Site: sacral Wound Type: pressure ulcer [place] Test: Does not [place] Pressure Ulcer Stage: II Wound Thickness: Partial Thickness Wound Length: 2.0 Wound Width: 1.0 Wound Depth: less than 0.1 Percent of Wound [place]/Red: 100 Wound Drainage Amount: None Wound Drainage Odor: None/Absent Tissue Surrounding Wound: scar tissue Wound General Appearance: Reddened Wound Comment #1 Right heel DTI pressure ulcer #2 Chemical burn on perineal area #3 Left heel DTI pressure ulcer #4 Sacrococcygeal full thickness scar tissue #5 Right sacral area stage II pressure ulcer Recommendation -Local wound care per protocol -Keep clean and dry -Turn and reposition -Optimize nutrition -Offload both heels -Heel protector on both heels -Low air loss mattress -Assess and f/u accordingly for any changes LIZ ESPINOZA RN Jan 06, 2018 12:24
--- NOTE | 2018-01-06 13:06 | Infectious Diseases Prog Note ---
Assessment/Plan Assessment/Plan Abx: IV Vanco 01/04- Zosyn 01/04- Cefepime x1 01/04 Levaquin x1 01/04 Tamiflu 01/04- Assessment: Acute respiratory distress- suspicion of Flu depiste neg sc test given high fevers, leukopenia - no obvious pNA on CXR -CXR 01/06: Hypoventilatory exam with bibasilar atelectasis. No significant change management analyst 2 days. No acute process -CXR: Hypoventilatory exam. 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 Will continue to follow along with you. Discussed with RN. Subjective Allergies: Coded Allergies: HYDROMORPHONE (Unverified Allergy, Unknown, 01/04/18) Subjective Tm 100.6 leukopenia, mild Bcx NTD repeat CXR- no PNA Objective Vital Signs Last 24 Hour Vital Signs Date Time Temp Pulse Resp B/P (MAP) Pulse Ox O2 Delivery O2 Flow Rate FiO2 01/06/18 09:37 95 114/66 01/06/18 08:04 95 20 Nasal Cannula 2.0 28 01/06/18 08:00 97.0 94 20 124/52 97 Nasal Cannula 2.0 97.0 01/06/18 04:00 90 01/06/18 04:00 98.6 91 20 114/66 100 Nasal Cannula 2.0 98.6 01/06/18 01:40 98.6 01/06/18 00:41 100.6 01/06/18 00:00 88 01/06/18 00:00 100.6 89 20 105/67 99 Nasal Cannula 2.0 100.6 01/05/18 20:00 92 01/05/18 20:00 100.6 92 20 103/60 98 Nasal Cannula 2.0 100.6 01/05/18 19:10 94 20 Nasal Cannula 2.0 28 01/05/18 16:00 99.1 101 20 109/69 98 Nasal Cannula 2.0 99.1 01/05/18 16:00 100 Height (Feet): 5 Height (Inches): 10.00 Weight (Pounds): 145 Objective GENERAL: The patient is an elderly male, in no acute distress. HEENT: [place] conjunctivae. Anicteric sclerae. NECK: Supple. LUNGS: Clear to auscultation. HEART: S1, S2 without murmurs or rubs. ABDOMEN: Soft and nontender. EXTREMITIES: No cyanosis or edema. Microbiology Date/Time Source Procedure Growth Status 01/04/18 04:45 Blood Blood Culture - Preliminary NO GROWTH AFTER 48 HOURS Resulted 01/04/18 04:30 Blood Blood Culture - Preliminary NO GROWTH AFTER 48 HOURS Resulted 01/04/18 05:15 Nasal Nares MRSA Culture - Final NO METHICILLIN RESISTANT STAPH AUREUS... Complete 01/04/18 04:45 Nasal Nares Influenza Types A,B Antigen (SUZAN) - Final Complete 01/04/18 05:15 Rectum VRE Culture - Final Enterococcus Faecalis - Vre Complete Laboratory Tests Test 01/06/18 06:40 White Blood Count 3.8 K/UL (4.8-10.8) L Red Blood Count 2.98 M/UL (4.70-6.10) L Hemoglobin 9.3 G/DL (14.2-18.0) L Hematocrit 27.8 % (42.0-52.0) L Mean Corpuscular Volume 93 FL (80-99) Mean Corpuscular Hemoglobin 31.1 PG (27.0-31.0) H Mean Corpuscular Hemoglobin Concent 33.3 G/DL (32.0-36.0) Red Cell Distribution Width 13.4 % (11.6-14.8) Platelet Count 214 K/UL (150-450) Mean Platelet Volume 7.5 FL (6.5-10.1) Neutrophils (%) (Auto) 61.9 % (45.0-75.0) Lymphocytes (%) (Auto) 23.2 % (20.0-45.0) Monocytes (%) (Auto) 12.4 % (1.0-10.0) H Eosinophils (%) (Auto) 2.2 % (0.0-3.0) Basophils (%) (Auto) 0.4 % (0.0-2.0) Sodium Level 147 MMOL/L (136-145) #H Potassium Level 3.0 MMOL/L (3.5-5.1) L Chloride Level 107 MMOL/L (98-107) Carbon Dioxide Level 20 MMOL/L (21-32) L Anion Gap 20 mmol/L (5-15) H Blood Urea Nitrogen 13 mg/dL (7-18) Creatinine 0.9 MG/DL (0.55-1.30) Estimat Glomerular Filtration Rate mL/min (>60) Glucose Level 160 MG/DL (74-106) H Calcium Level 6.7 MG/DL (8.5-10.1) L Current Medications Medications (Trade) Dose Ordered Sig/Nelson Route PRN Reason Start Time Stop Time Status Last Admin Dose Admin Acetaminophen (Tylenol) 650 mg Q6H PRN ORAL Mild Pain/Temp > 100.5 01/04/18 09:30 02/03/18 09:29 01/06/18 00:41 Acetaminophen/ Codeine Phosphate (Tylenol #3) 1 tab Q4H PRN ORAL Pain Scale (6-10) 01/04/18 09:30 01/11/18 09:29 01/05/18 09:42 Amlodipine Besylate (Norvasc) 5 mg DAILY GT 01/05/18 09:00 02/04/18 08:59 01/06/18 09:37 Atorvastatin Calcium (Lipitor) 20 mg BEDTIME ORAL 01/04/18 21:00 02/03/18 20:59 01/05/18 21:38 Baclofen (Lioresal) 5 mg THREE TIMES A DAY GT 01/04/18 13:00 02/03/18 12:59 01/06/18 12:14 Clopidogrel Bisulfate (Plavix) 75 mg DAILY GT 01/04/18 11:00 02/03/18 10:59 01/06/18 09:36 Docusate Sodium (Colace) 100 mg BID GT 01/04/18 18:00 02/03/18 17:59 01/06/18 09:36 Finasteride (Proscar) 5 mg DAILY ORAL 01/04/18 12:30 02/03/18 12:29 01/06/18 09:36 Gabapentin (Neurontin) 250 mg THREE TIMES A DAY GT 01/04/18 13:00 02/03/18 12:59 01/06/18 12:14 Ipratropium [place] (Atrovent) 500 mcg Q6H PRN HHN Shortness of Breath 01/04/18 09:30 01/09/18 09:29 Lactobacillus Acidophilus (Culturelle) 1 tab TWICE A DAY ORAL 01/04/18 18:00 02/03/18 17:59 01/06/18 09:37 Lansoprazole (Prevacid) 30 mg DAILY GT 01/05/18 09:00 02/04/18 08:59 01/06/18 09:36 Multivitamins Therapeutic (Therapeutic Multivitamin) 1 ea DAILY ORAL 01/04/18 11:00 02/03/18 10:59 01/06/18 09:36 Oseltamivir Phosphate (Tamiflu) 75 mg Q12HR ORAL 01/04/18 20:00 01/09/18 23:59 01/06/18 09:41 Piperacillin Sod/ Tazobactam Sod 3.375 gm/Sodium Chloride 110 ml @ 27.5 mls/hr Q8H IVPB 01/04/18 12:00 01/11/18 11:59 01/06/18 12:14 Potassium Chloride (K-Dur) 40 meq Q4H ORAL 01/06/18 10:00 01/06/18 14:01 01/06/18 09:59 Promethazine HCl/ Codeine (Phenergan with Codeine) 5 ml Q4H PRN ORAL For Cough 01/05/18 13:00 02/04/18 12:59 Sennosides (Senokot) 1 tab DAILY GT 01/05/18 09:00 02/04/18 08:59 01/06/18 09:36 Sodium Chloride 1,000 ml @ 50 mls/hr Q20H IV 01/04/18 15:00 02/03/18 14:59 01/06/18 07:32 Tamsulosin HCl (Flomax) 0.4 mg BEDTIME ORAL 01/04/18 21:00 02/03/18 20:59 01/06/18 09:37 Theophylline (Giovanni-Dur) 100 mg EVERY 12 HOURS ORAL 01/05/18 21:00 02/04/18 20:59 01/06/18 09:36 Vancomycin HCl (Vanco rx to dose) 1 ea DAILY PRN MISC Per rx protocol 01/04/18 09:30 02/03/18 09:29 Vancomycin HCl 1 gm/Dextrose 275 ml @ 183.708 mls/hr Q12H IVPB 01/04/18 16:00 01/09/18 15:59 01/06/18 04:38 Vitamin B Complex (Vitamin B Complex) 1 ea DAILY GT 01/05/18 09:00 02/04/18 08:59 01/06/18 09:36 Avril Zaragoza M.D. Jan 06, 2018 13:06
--- NOTE | 2018-01-06 13:35 | Pulmonology Progress Note ---
Assessment/Plan Problems: (1) Healthcare-associated pneumonia (2) Sepsis (3) UTI (urinary tract infection) (4) At high risk for aspiration (5) History of CVA (cerebrovascular accident) (6) Advanced dementia (7) G tube feedings Assessment/Plan improving respiratory treatment check cultures sinus rhythm dvt prophylaxis chest PT. check electrolytes Subjective ROS Limited/Unobtainable: No Allergies: Coded Allergies: HYDROMORPHONE (Unverified Allergy, Unknown, 01/04/18) Objective Last 24 Hour Vital Signs Date Time Temp Pulse Resp B/P (MAP) Pulse Ox O2 Delivery O2 Flow Rate FiO2 01/06/18 09:37 95 114/66 01/06/18 08:04 95 20 Nasal Cannula 2.0 28 01/06/18 08:00 97.0 94 20 124/52 97 Nasal Cannula 2.0 97.0 01/06/18 04:00 90 01/06/18 04:00 98.6 91 20 114/66 100 Nasal Cannula 2.0 98.6 01/06/18 01:40 98.6 01/06/18 00:41 100.6 01/06/18 00:00 88 01/06/18 00:00 100.6 89 20 105/67 99 Nasal Cannula 2.0 100.6 01/05/18 20:00 92 01/05/18 20:00 100.6 92 20 103/60 98 Nasal Cannula 2.0 100.6 01/05/18 19:10 94 20 Nasal Cannula 2.0 28 01/05/18 16:00 99.1 101 20 109/69 98 Nasal Cannula 2.0 99.1 01/05/18 16:00 100 Intake and Output 01/05/18 01/06/18 19:00 07:00 Intake Total 1863.7 ml 1571.000 ml Output Total 200 ml 1800 ml Balance 1663.7 ml -229.000 ml Intake Free Water 120 ml 150 ml IV Total 843.7 ml 521.000 ml Tube Feeding 900 ml 900 ml Output Urine Total 200 ml 1800 ml General Appearance: WD/WN HEENT: normocephalic, atraumatic Respiratory/Chest: chest wall non-tender, lungs clear Cardiovascular: normal peripheral pulses, normal rate Abdomen: normal bowel sounds, soft, non tender Extremities: no cyanosis Skin: no rash Neurologic/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 Complete 01/04/18 04:45 Nasal Nares Influenza Types A,B Antigen (SUZAN) - Final Complete 01/04/18 05:15 Rectum VRE Culture - Final Enterococcus Faecalis - Vre Complete Laboratory Tests 01/06/18 06:40: White Blood Count 3.8L, Red Blood Count 2.98L, Hemoglobin 9.3L, Hematocrit 27.8L , Mean Corpuscular Volume 93, Mean Corpuscular Hemoglobin 31.1H, Mean Corpuscular Hemoglobin Concent 33.3, Red Cell Distribution Width 13.4, Platelet Count 214, Mean Platelet Volume 7.5, Neutrophils (%) (Auto) 61.9, Lymphocytes (% ) (Auto) 23.2, Monocytes (%) (Auto) 12.4H, Eosinophils (%) (Auto) 2.2, Basophils (%) (Auto) 0.4, Sodium Level 147#H, Potassium Level 3.0L, Chloride Level 107, Carbon Dioxide Level 20L, Anion Gap 20H, Blood Urea Nitrogen 13, Creatinine 0.9, Estimat Glomerular Filtration Rate , Glucose Level 160H, Calcium Level 6.7L Current Medications Medications (Trade) Dose Ordered Sig/Nelson Route PRN Reason Start Time Stop Time Status Last Admin Dose Admin Acetaminophen (Tylenol) 650 mg Q6H PRN ORAL Mild Pain/Temp > 100.5 01/04/18 09:30 02/03/18 09:29 01/06/18 00:41 Acetaminophen/ Codeine Phosphate (Tylenol #3) 1 tab Q4H PRN ORAL Pain Scale (6-10) 01/04/18 09:30 01/11/18 09:29 01/05/18 09:42 Amlodipine Besylate (Norvasc) 5 mg DAILY GT 01/05/18 09:00 02/04/18 08:59 01/06/18 09:37 Atorvastatin Calcium (Lipitor) 20 mg BEDTIME ORAL 01/04/18 21:00 02/03/18 20:59 01/05/18 21:38 Baclofen (Lioresal) 5 mg THREE TIMES A DAY GT 01/04/18 13:00 02/03/18 12:59 01/06/18 12:14 Clopidogrel Bisulfate (Plavix) 75 mg DAILY GT 01/04/18 11:00 02/03/18 10:59 01/06/18 09:36 Docusate Sodium (Colace) 100 mg BID GT 01/04/18 18:00 02/03/18 17:59 01/06/18 09:36 Finasteride (Proscar) 5 mg DAILY ORAL 01/04/18 12:30 02/03/18 12:29 01/06/18 09:36 Gabapentin (Neurontin) 250 mg THREE TIMES A DAY GT 01/04/18 13:00 02/03/18 12:59 01/06/18 12:14 Ipratropium [place] (Atrovent) 500 mcg Q6H PRN HHN Shortness of Breath 01/04/18 09:30 01/09/18 09:29 Lactobacillus Acidophilus (Culturelle) 1 tab TWICE A DAY ORAL 01/04/18 18:00 02/03/18 17:59 01/06/18 09:37 Lansoprazole (Prevacid) 30 mg DAILY GT 01/05/18 09:00 02/04/18 08:59 01/06/18 09:36 Multivitamins Therapeutic (Therapeutic Multivitamin) 1 ea DAILY ORAL 01/04/18 11:00 02/03/18 10:59 01/06/18 09:36 Oseltamivir Phosphate (Tamiflu) 75 mg Q12HR ORAL 01/04/18 20:00 01/09/18 23:59 01/06/18 09:41 Piperacillin Sod/ Tazobactam Sod 3.375 gm/Sodium Chloride 110 ml @ 27.5 mls/hr Q8H IVPB 01/04/18 12:00 01/11/18 11:59 01/06/18 12:14 Potassium Chloride (K-Dur) 40 meq Q4H ORAL 01/06/18 10:00 01/06/18 14:01 01/06/18 09:59 Promethazine HCl/ Codeine (Phenergan with Codeine) 5 ml Q4H PRN ORAL For Cough 01/05/18 13:00 02/04/18 12:59 Sennosides (Senokot) 1 tab DAILY GT 01/05/18 09:00 02/04/18 08:59 01/06/18 09:36 Sodium Chloride 1,000 ml @ 50 mls/hr Q20H IV 01/04/18 15:00 02/03/18 14:59 01/06/18 07:32 Tamsulosin HCl (Flomax) 0.4 mg BEDTIME ORAL 01/04/18 21:00 02/03/18 20:59 01/06/18 09:37 Theophylline (Giovanni-Dur) 100 mg EVERY 12 HOURS ORAL 01/05/18 21:00 02/04/18 20:59 01/06/18 09:36 Vitamin B Complex (Vitamin B Complex) 1 ea DAILY GT 01/05/18 09:00 02/04/18 08:59 01/06/18 09:36 Sowmya Abbasi MD Jan 06, 2018 13:35
[2018-01-06 16:00] VITALS: BP 134/89
[2018-01-06] MEDS ORDERED: Promethazine/Codeine 5ml UD ORAL PRN (17:00)
[2018-01-06] MEDS ORDERED: Tylenol #3 tab (300mg/30mg) ORAL PRN (17:30)
[2018-01-06] MEDS: Piperacillin/Tazobactam 3.375 GM in NS 110 ML IVPB SCH (20:10)
[2018-01-06] MEDS: Atorvastatin 20mg tab ORAL SCH (20:10)
[2018-01-06 20:24] VITALS: BP 116/62
[2018-01-07] VITALS (7 sets, daily range): BP systolic 108–149; BP diastolic 65–89
[2018-01-07] MEDS: Piperacillin/Tazobactam 3.375 GM in NS 110 ML IVPB SCH ×2 (03:30→12:00)
[2018-01-07 06:46] LABS: HEMATOCRIT 34.1 % (42.0-52.0); HEMOGLOBIN 11.2 G/DL (14.2-18.0); MEAN CORPUSCULAR VOLUME 96 FL (80-99); PLATELET COUNT 253 K/UL (150-450); RED BLOOD COUNT 3.56 M/UL (4.70-6.10); RED CELL DISTRIBUTION WIDTH 13.5 % (11.6-14.8); WHITE BLOOD COUNT 2.9 K/UL (4.8-10.8)
[2018-01-07 07:00] LABS: ANION GAP 10 mmol/L (5-15); BLOOD UREA NITROGEN 12 mg/dL (7-18); CALCIUM 8.6 MG/DL (8.5-10.1); CARBON DIOXIDE 25 MMOL/L (21-32); CHLORIDE 103 MMOL/L (98-107); CREATININE 0.7 MG/DL (0.55-1.30); POTASSIUM 4.1 MMOL/L (3.5-5.1); SODIUM 138 MMOL/L (136-145)
[2018-01-07] MEDS: Oseltamivir 75mg cap ORAL SCH ×2 (08:18→20:04)
[2018-01-07] MEDS: Gabapentin 300 MG/6 ML Soln GT SCH ×3 (08:19→18:26)
[2018-01-07] MEDS: Multivitamin w/Minerals tab ORAL SCH (08:19)
[2018-01-07] MEDS: Lactobacillus-GG tablet ORAL SCH ×2 (08:19→18:26)
[2018-01-07] MEDS: Theophylline ER 100mg ORAL SCH ×2 (08:19→20:04)
[2018-01-07] MEDS: Sennosides 8.6mg GT SCH (08:20)
[2018-01-07] MEDS: Docusate 100mg/10ml Liq GT SCH ×2 (08:20→18:26)
[2018-01-07] MEDS: Ipratropium 0.02% Inh Soln 2.5ml UD HHN PRN (11:14)
[2018-01-07] MEDS: Zoysn 3.37gm in NS 100ML IVPB SCH (12:34)
--- NOTE | 2018-01-07 13:02 | GI Progress Note ---
Assessment/Plan Problems: (1) G tube feedings ICD Codes: Z93.1 - Gastrostomy status SNOMED: 570822548, 895708099 (2) Failure to thrive ICD Codes: R62.51 - Failure to thrive (child) SNOMED: 86263190 (3) Anemia ICD Codes: D64.9 - Anemia SNOMED: 095691367 Status: stable Status Narrative Discussed with Dr. Thompson. Assessment/Plan OB stool negative supportive care GTFs per RD anemia work up >> iron deficient >> venofer monitor H&H, prn transfusions bowel regime ppi fu labs The patient was seen and examined at bedside and all new and available data was reviewed in the patients chart. I agree with the above findings, impression and plan. (Patient seen earlier today. Signature stamp does not reflect patient encounter time.). - Anitha Thompson MD Subjective Subjective limited, NAD Objective Last 24 Hour Vital Signs Date Time Temp Pulse Resp B/P (MAP) Pulse Ox O2 Delivery O2 Flow Rate FiO2 01/07/18 12:00 97.9 94 19 140/89 99 97.9 01/07/18 11:14 85 18 97 Nasal Cannula 2.0 28 01/07/18 08:19 90 122/68 01/07/18 08:00 98.1 94 21 149/65 97 98.1 01/07/18 07:36 90 20 Nasal Cannula 2.0 28 01/07/18 07:36 Nasal Cannula 2.0 28 01/07/18 07:36 97 Nasal Cannula 2.0 28 01/07/18 04:28 97.3 82 18 122/68 97 Nasal Cannula 2.0 97.3 01/07/18 04:26 97.3 78 19 108/66 98 97.3 01/07/18 00:15 Nasal Cannula 2.0 01/07/18 00:14 97.3 78 19 108/66 98 97.3 01/06/18 20:37 97 Nasal Cannula 2.0 28 01/06/18 20:37 Nasal Cannula 2.0 28 01/06/18 20:37 93 20 Nasal Cannula 2.0 28 01/06/18 20:25 Nasal Cannula 2.0 01/06/18 20:24 98.2 88 20 116/62 97 98.2 01/06/18 16:00 99.9 91 20 134/89 94 99.9 Intake and Output 01/06/18 01/07/18 19:00 07:00 Intake Total 350.5 ml 1217.5 ml Output Total 850 ml 800 ml Balance -499.5 ml 417.5 ml Intake Free Water 200 ml IV Total 50.5 ml 192.5 ml Tube Feeding 300 ml 825 ml Output Urine Total 850 ml 800 ml # Bowel Movements 1 Laboratory Tests Test 01/07/18 05:30 White Blood Count 2.9 K/UL (4.8-10.8) L Red Blood Count 3.56 M/UL (4.70-6.10) L Hemoglobin 11.2 G/DL (14.2-18.0) L Hematocrit 34.1 % (42.0-52.0) L Mean Corpuscular Volume 96 FL (80-99) Mean Corpuscular Hemoglobin 31.3 PG (27.0-31.0) H Mean Corpuscular Hemoglobin Concent 32.8 G/DL (32.0-36.0) Red Cell Distribution Width 13.5 % (11.6-14.8) Platelet Count 253 K/UL (150-450) Mean Platelet Volume 8.0 FL (6.5-10.1) Neutrophils (%) (Auto) % (45.0-75.0) Lymphocytes (%) (Auto) % (20.0-45.0) Monocytes (%) (Auto) % (1.0-10.0) Eosinophils (%) (Auto) % (0.0-3.0) Basophils (%) (Auto) % (0.0-2.0) Differential Total Cells Counted 100 Neutrophils % (Manual) 58 % (45-75) Lymphocytes % (Manual) 28 % (20-45) Monocytes % (Manual) 8 % (1-10) Eosinophils % (Manual) 6 % (0-3) H Basophils % (Manual) 0 % (0-2) Band Neutrophils 0 % (0-8) Platelet Estimate Adequate Platelet Morphology Normal Hypochromasia 1+ Sodium Level 138 MMOL/L (136-145) Potassium Level 4.1 MMOL/L (3.5-5.1) Chloride Level 103 MMOL/L (98-107) Carbon Dioxide Level 25 MMOL/L (21-32) Anion Gap 10 mmol/L (5-15) Blood Urea Nitrogen 12 mg/dL (7-18) Creatinine 0.7 MG/DL (0.55-1.30) Estimat Glomerular Filtration Rate mL/min (>60) Glucose Level 109 MG/DL (74-106) H Calcium Level 8.6 MG/DL (8.5-10.1) # C-Reactive Protein, Quantitative 1.6 mg/dL (0.00-0.90) H Height (Feet): 5 Height (Inches): 10.00 Weight (Pounds): 145 General Appearance: no apparent distress, alert Cardiovascular: normal rate Respiratory/Chest: no respiratory distress Abdominal Exam: soft, GT site - c/d/i Ivy Trammell N.P. Jan 07, 2018 13:02 BILLY THOMPSON Jan 14, 2018 09:05
--- NOTE | 2018-01-07 13:05 | Nephrology Progress Note ---
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, old (6) Arthritis (7) G tube feedings (8) Hypokalemia Assessment: ok Plan abxs follow labs TF Subjective Subjective In NAD Objective Objective Last 24 Hour Vital Signs Date Time Temp Pulse Resp B/P (MAP) Pulse Ox O2 Delivery O2 Flow Rate FiO2 01/07/18 12:00 97.9 94 19 140/89 99 97.9 01/07/18 11:14 85 18 97 Nasal Cannula 2.0 28 01/07/18 08:19 90 122/68 01/07/18 08:00 98.1 94 21 149/65 97 98.1 01/07/18 07:36 90 20 Nasal Cannula 2.0 28 01/07/18 07:36 Nasal Cannula 2.0 28 01/07/18 07:36 97 Nasal Cannula 2.0 28 01/07/18 04:28 97.3 82 18 122/68 97 Nasal Cannula 2.0 97.3 01/07/18 04:26 97.3 78 19 108/66 98 97.3 01/07/18 00:15 Nasal Cannula 2.0 01/07/18 00:14 97.3 78 19 108/66 98 97.3 01/06/18 20:37 97 Nasal Cannula 2.0 28 01/06/18 20:37 Nasal Cannula 2.0 28 01/06/18 20:37 93 20 Nasal Cannula 2.0 28 01/06/18 20:25 Nasal Cannula 2.0 01/06/18 20:24 98.2 88 20 116/62 97 98.2 01/06/18 16:00 99.9 91 20 134/89 94 99.9 Intake and Output 01/06/18 01/07/18 19:00 07:00 Intake Total 350.5 ml 1217.5 ml Output Total 850 ml 800 ml Balance -499.5 ml 417.5 ml Intake Free Water 200 ml IV Total 50.5 ml 192.5 ml Tube Feeding 300 ml 825 ml Output Urine Total 850 ml 800 ml # Bowel Movements 1 Laboratory Tests 01/07/18 05:30: White Blood Count 2.9L, Red Blood Count 3.56L, Hemoglobin 11.2L, Hematocrit 34.1L, Mean Corpuscular Volume 96, Mean Corpuscular Hemoglobin 31.3H, Mean Corpuscular Hemoglobin Concent 32.8, Red Cell Distribution Width 13.5, Platelet Count 253, Mean Platelet Volume 8.0, Neutrophils (%) (Auto) , Lymphocytes (%) ( Auto) , Monocytes (%) (Auto) , Eosinophils (%) (Auto) , Basophils (%) (Auto) , Differential Total Cells Counted 100, Neutrophils % (Manual) 58, Lymphocytes % ( Manual) 28, Monocytes % (Manual) 8, Eosinophils % (Manual) 6H, Basophils % ( Manual) 0, Band Neutrophils 0, Platelet Estimate Adequate, Platelet Morphology Normal, Hypochromasia 1+, Sodium Level 138, Potassium Level 4.1, Chloride Level 103, Carbon Dioxide Level 25, Anion Gap 10, Blood Urea Nitrogen 12, Creatinine 0.7, Estimat Glomerular Filtration Rate , Glucose Level 109H, Calcium Level 8.6# , C-Reactive Protein, Quantitative 1.6H Height (Feet): 5 Height (Inches): 10.00 Weight (Pounds): 145 Cardiovascular: normal rate Respiratory/Chest: lungs clear Extremities: other - no edema WHIT TAYLOR Jan 07, 2018 13:05
--- NOTE | 2018-01-07 15:26 | Infectious Diseases Prog Note ---
Assessment/Plan Assessment/Plan Abx: IV Vanco 01/04- Zosyn 01/04- Cefepime x1 01/04 Levaquin x1 01/04 Tamiflu 01/04- Assessment: Acute respiratory distress- suspicion of Flu depiste neg sc test given high fevers, leukopenia - no obvious pNA on CXR -CXR 01/06: Hypoventilatory exam with bibasilar atelectasis. No significant pack changer 2 days. No acute process -CXR: Hypoventilatory exam. No definite acute process -Influenza sc neg -sp cx p Fever, improving -u./a neg 10/28 CoNS bacteremia- likely contaminant Leukopenia, mild Hyponatremia HTN CAD CVA, multiple - w/ residual quadriparesis dysphagia s/p GT Dm2 BPH severe OA [facility] resident Plan: -Switch empiric IV Zosyn #4/5 To ceftriaxone for possible PNA/bronchitis -01/06 SP IV Vancomycin #3 -01/05 SP Doxycycline #2 -Continue empiric Tamiflu #4/5 -f/u cx -Monitor CBC/CMP, temperatures -repeat 2 sets of Bcx Thank you for this consultation. Will continue to follow along with you. Discussed with RN. Subjective Allergies: Coded Allergies: HYDROMORPHONE (Unverified Allergy, Unknown, 01/04/18) Subjective afebrilein 36hrs leukopenia bcx 10/28 CoNS Objective Vital Signs Last 24 Hour Vital Signs Date Time Temp Pulse Resp B/P (MAP) Pulse Ox O2 Delivery O2 Flow Rate FiO2 01/07/18 12:00 97.9 94 19 140/89 99 97.9 01/07/18 11:14 85 18 97 Nasal Cannula 2.0 28 01/07/18 08:19 90 122/68 01/07/18 08:00 98.1 94 21 149/65 97 98.1 01/07/18 07:36 90 20 Nasal Cannula 2.0 28 01/07/18 07:36 Nasal Cannula 2.0 28 01/07/18 07:36 97 Nasal Cannula 2.0 28 01/07/18 04:28 97.3 82 18 122/68 97 Nasal Cannula 2.0 97.3 01/07/18 04:26 97.3 78 19 108/66 98 97.3 01/07/18 00:15 Nasal Cannula 2.0 01/07/18 00:14 97.3 78 19 108/66 98 97.3 01/06/18 20:37 97 Nasal Cannula 2.0 28 01/06/18 20:37 Nasal Cannula 2.0 28 01/06/18 20:37 93 20 Nasal Cannula 2.0 28 01/06/18 20:25 Nasal Cannula 2.0 01/06/18 20:24 98.2 88 20 116/62 97 98.2 01/06/18 16:00 99.9 91 20 134/89 94 99.9 Height (Feet): 5 Height (Inches): 10.00 Weight (Pounds): 145 Objective GENERAL: The patient is an elderly male, in no acute distress. HEENT: [place] conjunctivae. Anicteric sclerae. NECK: Supple. LUNGS: Clear to auscultation. HEART: S1, S2 without murmurs or rubs. ABDOMEN: Soft and nontender. EXTREMITIES: No cyanosis or edema. Microbiology Date/Time Source Procedure Growth Status 01/06/18 01:30 Sputum Gram Stain - Final Resulted 01/06/18 01:30 Sputum Sputum Culture Pending Resulted Laboratory Tests Test 01/07/18 05:30 White Blood Count 2.9 K/UL (4.8-10.8) L Red Blood Count 3.56 M/UL (4.70-6.10) L Hemoglobin 11.2 G/DL (14.2-18.0) L Hematocrit 34.1 % (42.0-52.0) L Mean Corpuscular Volume 96 FL (80-99) Mean Corpuscular Hemoglobin 31.3 PG (27.0-31.0) H Mean Corpuscular Hemoglobin Concent 32.8 G/DL (32.0-36.0) Red Cell Distribution Width 13.5 % (11.6-14.8) Platelet Count 253 K/UL (150-450) Mean Platelet Volume 8.0 FL (6.5-10.1) Neutrophils (%) (Auto) % (45.0-75.0) Lymphocytes (%) (Auto) % (20.0-45.0) Monocytes (%) (Auto) % (1.0-10.0) Eosinophils (%) (Auto) % (0.0-3.0) Basophils (%) (Auto) % (0.0-2.0) Differential Total Cells Counted 100 Neutrophils % (Manual) 58 % (45-75) Lymphocytes % (Manual) 28 % (20-45) Monocytes % (Manual) 8 % (1-10) Eosinophils % (Manual) 6 % (0-3) H Basophils % (Manual) 0 % (0-2) Band Neutrophils 0 % (0-8) Platelet Estimate Adequate Platelet Morphology Normal Hypochromasia 1+ Sodium Level 138 MMOL/L (136-145) Potassium Level 4.1 MMOL/L (3.5-5.1) Chloride Level 103 MMOL/L (98-107) Carbon Dioxide Level 25 MMOL/L (21-32) Anion Gap 10 mmol/L (5-15) Blood Urea Nitrogen 12 mg/dL (7-18) Creatinine 0.7 MG/DL (0.55-1.30) Estimat Glomerular Filtration Rate mL/min (>60) Glucose Level 109 MG/DL (74-106) H Calcium Level 8.6 MG/DL (8.5-10.1) # C-Reactive Protein, Quantitative 1.6 mg/dL (0.00-0.90) H Current Medications Medications (Trade) Dose Ordered Sig/Nelson Route PRN Reason Start Time Stop Time Status Last Admin Dose Admin Acetaminophen (Tylenol) 650 mg Q6H PRN ORAL Mild Pain/Temp > 100.5 01/06/18 16:30 02/03/18 16:29 Acetaminophen/ Codeine Phosphate (Tylenol #3) 1 tab Q4H PRN ORAL Pain Scale (6-10) 01/06/18 17:30 01/11/18 09:29 Amlodipine Besylate (Norvasc) 5 mg DAILY GT 01/07/18 09:00 02/04/18 08:59 01/07/18 08:19 Atorvastatin Calcium (Lipitor) 20 mg BEDTIME ORAL 01/06/18 21:00 02/03/18 20:59 01/06/18 20:10 Baclofen (Lioresal) 5 mg THREE TIMES A DAY GT 01/06/18 18:00 02/03/18 12:59 01/07/18 13:51 Clopidogrel Bisulfate (Plavix) 75 mg DAILY GT 01/07/18 09:00 02/03/18 10:59 01/07/18 08:20 Docusate Sodium (Colace) 100 mg BID GT 01/06/18 18:00 02/03/18 17:59 01/07/18 08:20 Finasteride (Proscar) 5 mg DAILY ORAL 01/07/18 09:00 02/03/18 12:29 01/07/18 08:18 Gabapentin (Neurontin) 250 mg THREE TIMES A DAY GT 01/06/18 18:00 02/03/18 12:59 01/07/18 13:51 Ipratropium [place] (Atrovent) 500 mcg Q6H PRN HHN Shortness of Breath 01/06/18 17:00 01/09/18 16:59 01/07/18 11:14 Lactobacillus Acidophilus (Culturelle) 1 tab TWICE A DAY ORAL 01/06/18 18:00 02/03/18 17:59 01/07/18 08:19 Lansoprazole (Prevacid) 30 mg DAILY GT 01/07/18 09:00 02/04/18 08:59 01/07/18 08:18 Multivitamins Therapeutic (Therapeutic Multivitamin) 1 ea DAILY ORAL 01/07/18 09:00 02/03/18 10:59 01/07/18 08:19 Oseltamivir Phosphate (Tamiflu) 75 mg Q12HR ORAL 01/06/18 21:00 01/09/18 23:59 01/07/18 08:18 Piperacillin Sod/ Tazobactam Sod 3.375 gm/Sodium Chloride 110 ml @ 27.5 mls/hr Q8H IVPB 01/06/18 20:00 01/11/18 11:59 01/07/18 12:00 Promethazine HCl/ Codeine (Phenergan with Codeine) 5 ml Q4H PRN ORAL For Cough 01/06/18 17:00 02/04/18 12:59 Sennosides (Senokot) 1 tab DAILY GT 01/07/18 09:00 02/04/18 08:59 01/07/18 08:20 Tamsulosin HCl (Flomax) 0.4 mg BEDTIME ORAL 01/06/18 21:00 02/03/18 20:59 01/06/18 20:10 Theophylline (Giovanni-Dur) 100 mg EVERY 12 HOURS ORAL 01/06/18 21:00 02/04/18 20:59 01/07/18 08:19 Vitamin B Complex (Vitamin B Complex) 1 ea DAILY GT 01/07/18 09:00 02/04/18 08:59 01/07/18 08:22 Avril Zaragoza M.D. Jan 07, 2018 15:26
--- NOTE | 2018-01-07 16:25 | Pulmonology Progress Note ---
Assessment/Plan Problems: (1) Healthcare-associated pneumonia (2) Sepsis (3) UTI (urinary tract infection) (4) At high risk for aspiration (5) History of CVA (cerebrovascular accident) (6) Advanced dementia (7) G tube feedings Assessment/Plan repeat BC, could be contaminated d/w ID attending improving respiratory treatment check cultures sinus rhythm dvt prophylaxis chest PT. check electrolytes Subjective ROS Limited/Unobtainable: Yes Interval Events: awake, comfortable Allergies: Coded Allergies: HYDROMORPHONE (Unverified Allergy, Unknown, 01/04/18) Objective Last 24 Hour Vital Signs Date Time Temp Pulse Resp B/P (MAP) Pulse Ox O2 Delivery O2 Flow Rate FiO2 01/07/18 16:00 98.2 82 19 134/74 99 98.2 01/07/18 12:00 97.9 94 19 140/89 99 97.9 01/07/18 11:14 85 18 97 Nasal Cannula 2.0 28 01/07/18 08:19 90 122/68 01/07/18 08:00 98.1 94 21 149/65 97 98.1 01/07/18 07:36 90 20 Nasal Cannula 2.0 28 01/07/18 07:36 Nasal Cannula 2.0 28 01/07/18 07:36 97 Nasal Cannula 2.0 28 01/07/18 04:28 97.3 82 18 122/68 97 Nasal Cannula 2.0 97.3 01/07/18 04:26 97.3 78 19 108/66 98 97.3 01/07/18 00:15 Nasal Cannula 2.0 01/07/18 00:14 97.3 78 19 108/66 98 97.3 01/06/18 20:37 97 Nasal Cannula 2.0 28 01/06/18 20:37 Nasal Cannula 2.0 28 01/06/18 20:37 93 20 Nasal Cannula 2.0 28 01/06/18 20:25 Nasal Cannula 2.0 01/06/18 20:24 98.2 88 20 116/62 97 98.2 Intake and Output 01/06/18 01/07/18 19:00 07:00 Intake Total 350.5 ml 1217.5 ml Output Total 850 ml 800 ml Balance -499.5 ml 417.5 ml Intake Free Water 200 ml IV Total 50.5 ml 192.5 ml Tube Feeding 300 ml 825 ml Output Urine Total 850 ml 800 ml # Bowel Movements 1 Objective General Appearance: WD/WN HEENT: normocephalic, atraumatic Respiratory/Chest: chest wall non-tender, lungs clear, no accessory muscle use Cardiovascular: normal rate, regular rhythm Abdomen: normal bowel sounds, gtube in place Genitourinary: normal external genitalia Extremities: no cyanosis Skin: no lesions Neurologic/Psychiatric: grip boss II-XII grossly normal Lymphatic: no neck adenopathy General Appearance: WD/WN HEENT: normocephalic, atraumatic, anicteric Respiratory/Chest: chest wall non-tender Microbiology Date/Time Source Procedure Growth Status 01/06/18 01:30 Sputum Gram Stain - Final Resulted 01/06/18 01:30 Sputum Sputum Culture Pending Resulted Laboratory Tests 01/07/18 05:30: White Blood Count 2.9L, Red Blood Count 3.56L, Hemoglobin 11.2L, Hematocrit 34.1L, Mean Corpuscular Volume 96, Mean Corpuscular Hemoglobin 31.3H, Mean Corpuscular Hemoglobin Concent 32.8, Red Cell Distribution Width 13.5, Platelet Count 253, Mean Platelet Volume 8.0, Neutrophils (%) (Auto) , Lymphocytes (%) ( Auto) , Monocytes (%) (Auto) , Eosinophils (%) (Auto) , Basophils (%) (Auto) , Differential Total Cells Counted 100, Neutrophils % (Manual) 58, Lymphocytes % ( Manual) 28, Monocytes % (Manual) 8, Eosinophils % (Manual) 6H, Basophils % ( Manual) 0, Band Neutrophils 0, Platelet Estimate Adequate, Platelet Morphology Normal, Hypochromasia 1+, Sodium Level 138, Potassium Level 4.1, Chloride Level 103, Carbon Dioxide Level 25, Anion Gap 10, Blood Urea Nitrogen 12, Creatinine 0.7, Estimat Glomerular Filtration Rate , Glucose Level 109H, Calcium Level 8.6# , C-Reactive Protein, Quantitative 1.6H Current Medications Medications (Trade) Dose Ordered Sig/Nelson Route PRN Reason Start Time Stop Time Status Last Admin Dose Admin Acetaminophen (Tylenol) 650 mg Q6H PRN ORAL Mild Pain/Temp > 100.5 01/06/18 16:30 02/03/18 16:29 Acetaminophen/ Codeine Phosphate (Tylenol #3) 1 tab Q4H PRN ORAL Pain Scale (6-10) 3/15/18 17:30 01/11/18 09:29 Amlodipine Besylate (Norvasc) 5 mg DAILY GT 01/07/18 09:00 02/04/18 08:59 01/07/18 08:19 Atorvastatin Calcium (Lipitor) 20 mg BEDTIME ORAL 01/06/18 21:00 02/03/18 20:59 01/06/18 20:10 Baclofen (Lioresal) 5 mg THREE TIMES A DAY GT 01/06/18 18:00 02/03/18 12:59 01/07/18 13:51 Ceftriaxone Sodium 1 gm/ Sodium Chloride 55 ml @ 110 mls/hr Q24H IVPB 01/07/18 16:30 01/08/18 23:59 Clopidogrel Bisulfate (Plavix) 75 mg DAILY GT 01/07/18 09:00 02/03/18 10:59 01/07/18 08:20 Docusate Sodium (Colace) 100 mg BID GT 01/06/18 18:00 02/03/18 17:59 01/07/18 08:20 Finasteride (Proscar) 5 mg DAILY ORAL 01/07/18 09:00 02/03/18 12:29 01/07/18 08:18 Gabapentin (Neurontin) 250 mg THREE TIMES A DAY GT 01/06/18 18:00 02/03/18 12:59 01/07/18 13:51 Ipratropium [place] (Atrovent) 500 mcg Q6H PRN HHN Shortness of Breath 01/06/18 17:00 01/09/18 16:59 01/07/18 11:14 Lactobacillus Acidophilus (Culturelle) 1 tab TWICE A DAY ORAL 01/06/18 18:00 02/03/18 17:59 01/07/18 08:19 Lansoprazole (Prevacid) 30 mg DAILY GT 01/07/18 09:00 02/04/18 08:59 01/07/18 08:18 Multivitamins Therapeutic (Therapeutic Multivitamin) 1 ea DAILY ORAL 01/07/18 09:00 02/03/18 10:59 01/07/18 08:19 Oseltamivir Phosphate (Tamiflu) 75 mg Q12HR ORAL 01/06/18 21:00 01/09/18 23:59 01/07/18 08:18 Promethazine HCl/ Codeine (Phenergan with Codeine) 5 ml Q4H PRN ORAL For Cough 01/06/18 17:00 02/04/18 12:59 Sennosides (Senokot) 1 tab DAILY GT 01/07/18 09:00 02/04/18 08:59 01/07/18 08:20 Tamsulosin HCl (Flomax) 0.4 mg BEDTIME ORAL 01/06/18 21:00 02/03/18 20:59 01/06/18 20:10 Theophylline (Giovanni-Dur) 100 mg EVERY 12 HOURS ORAL 01/06/18 21:00 02/04/18 20:59 01/07/18 08:19 Vitamin B Complex (Vitamin B Complex) 1 ea DAILY GT 01/07/18 09:00 02/04/18 08:59 01/07/18 08:22 Sowmya Abbasi MD Jan 07, 2018 16:24
[2018-01-07] MEDS: cefTRIAXone 1 GM in NS 55 ML IVPB SCH (17:27)
[2018-01-07] MEDS: Atorvastatin 20mg tab ORAL SCH (20:03)
[2018-01-07] MEDS: Tamsulosin 0.4mg cap ORAL SCH (20:03)
[2018-01-07] MEDS ORDERED: NS 275ml ONE (22:51)
[2018-01-07] MEDS ORDERED: Tubing IV Secondary IV ONE (22:51)
[2018-01-08] VITALS: BP 122/79
[2018-01-08 04:41] VITALS: BP 119/71
[2018-01-08 07:23] LABS: BASOPHILS % (AUTO) 0.6 % (0.0-2.0); EOSINOPHILS % (AUTO) 7.2 % (0.0-3.0); HEMATOCRIT 33.8 % (42.0-52.0); LYMPHOCYTES % (AUTO) 24.1 % (20.0-45.0); MEAN CORPUSCULAR VOLUME 95 FL (80-99); MONOCYTES % (AUTO) 8.3 % (1.0-10.0); NEUTROPHILS % (AUTO) 59.8 % (45.0-75.0); PLATELET COUNT 285 K/UL (150-450); RED BLOOD COUNT 3.56 M/UL (4.70-6.10); RED CELL DISTRIBUTION WIDTH 13.7 % (11.6-14.8); WHITE BLOOD COUNT 4.4 K/UL (4.8-10.8)
[2018-01-08 07:47] LABS: ANION GAP 8 mmol/L (5-15); BLOOD UREA NITROGEN 14 mg/dL (7-18); CALCIUM 8.8 MG/DL (8.5-10.1); CARBON DIOXIDE 28 MMOL/L (21-32); CHLORIDE 106 MMOL/L (98-107); CREATININE 0.7 MG/DL (0.55-1.30); POTASSIUM 3.9 MMOL/L (3.5-5.1); SODIUM 142 MMOL/L (136-145)
[2018-01-08 08:00] VITALS: BP 134/78
[2018-01-08] MEDS: Sennosides 8.6mg GT SCH ×3 (09:00→10:00)
[2018-01-08] MEDS: Docusate 100mg/10ml Liq GT SCH ×3 (09:00→10:01)
[2018-01-08] MEDS: Multivitamin w/Minerals tab ORAL SCH (09:00)
[2018-01-08] MEDS: Gabapentin 300 MG/6 ML Soln GT SCH ×3 (09:00→18:11)
[2018-01-08] MEDS: Oseltamivir 75mg cap ORAL SCH ×2 (09:55→20:35)
[2018-01-08] MEDS: Theophylline ER 100mg ORAL SCH ×2 (09:55→20:35)
[2018-01-08] MEDS: Lactobacillus-GG tablet ORAL SCH ×2 (09:55→18:12)
--- NOTE | 2018-01-08 11:39 | General Progress Note ---
Assessment/Plan Problem List: (1) Arthritis ICD Codes: M19.90 - Arthritis SNOMED: 2835499 (2) Failure to thrive ICD Codes: R62.51 - Failure to thrive (child) SNOMED: 25247771 (3) G tube feedings ICD Codes: Z93.1 - Gastrostomy status SNOMED: 864340369, 714120480 (4) HTN (hypertension) ICD Codes: I10 - HTN (hypertension) SNOMED: 98450900 (5) Anemia ICD Codes: D64.9 - Anemia SNOMED: 390259855 Assessment/Plan tolerating GTF stable H&H neg stool ob needs out patient fu fo GI procedures Subjective ROS Limited/Unobtainable: No Allergies: Coded Allergies: HYDROMORPHONE (Unverified Allergy, Unknown, 01/04/18) Objective Last 24 Hour Vital Signs Date Time Temp Pulse Resp B/P (MAP) Pulse Ox O2 Delivery O2 Flow Rate FiO2 01/08/18 09:56 98 134/78 01/08/18 08:44 98 20 Nasal Cannula 2.0 28 01/08/18 08:44 Nasal Cannula 2.0 28 01/08/18 08:44 99 Nasal Cannula 2.0 28 01/08/18 08:00 98.1 78 20 134/78 99 98.1 01/08/18 04:41 94 Nasal Cannula 2.0 01/08/18 04:41 96.9 80 20 119/71 94 Nasal Cannula 96.9 01/08/18 00:00 98.1 86 19 122/79 93 98.1 01/07/18 20:00 98.8 89 20 136/68 99 98.8 01/07/18 19:40 Nasal Cannula 2.0 28 01/07/18 19:40 83 20 Nasal Cannula 2.0 28 01/07/18 19:40 97 Nasal Cannula 2.0 28 01/07/18 16:00 98.2 82 19 134/74 99 98.2 01/07/18 12:00 97.9 94 19 140/89 99 97.9 Intake and Output 01/07/18 01/08/18 19:00 07:00 Intake Total 870 ml 510 ml Output Total 800 ml 200 ml Balance 70 ml 310 ml Intake Free Water 120 ml 60 ml Tube Feeding 750 ml 450 ml Output Urine Total 800 ml 200 ml # Bowel Movements 2 Laboratory Tests 01/08/18 06:15: White Blood Count 4.4#L, Red Blood Count 3.56L, Hemoglobin 11.0L, Hematocrit 33.8L, Mean Corpuscular Volume 95, Mean Corpuscular Hemoglobin 30.8, Mean Corpuscular Hemoglobin Concent 32.5, Red Cell Distribution Width 13.7, Platelet Count 285, Mean Platelet Volume 8.0, Neutrophils (%) (Auto) 59.8, Lymphocytes (% ) (Auto) 24.1, Monocytes (%) (Auto) 8.3, Eosinophils (%) (Auto) 7.2H, Basophils (%) (Auto) 0.6, Sodium Level 142, Potassium Level 3.9, Chloride Level 106, Carbon Dioxide Level 28, Anion Gap 8, Blood Urea Nitrogen 14, Creatinine 0.7, Estimat Glomerular Filtration Rate , Glucose Level 116H, Calcium Level 8.8 Height (Feet): 5 Height (Inches): 10.00 Weight (Pounds): 145 General Appearance: no apparent distress EENT: normal ENT inspection Neck: supple Cardiovascular: normal peripheral pulses Respiratory/Chest: decreased breath sounds Abdomen: normal bowel sounds, non tender, soft Extremities: non-tender BILLY JENNINGS Jan 08, 2018 11:39
[2018-01-08 12:00] VITALS: BP 146/87
--- NOTE | 2018-01-08 15:03 | Nephrology Progress Note ---
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, old (6) Arthritis (7) G tube feedings (8) Hypokalemia Assessment: ok Plan abxs follow labs TF Subjective Subjective In NAD Objective Objective Last 24 Hour Vital Signs Date Time Temp Pulse Resp B/P (MAP) Pulse Ox O2 Delivery O2 Flow Rate FiO2 01/08/18 12:00 98.1 97 20 146/87 94 98.1 01/08/18 09:56 98 134/78 01/08/18 08:44 98 20 Nasal Cannula 2.0 28 01/08/18 08:44 Nasal Cannula 2.0 28 01/08/18 08:44 99 Nasal Cannula 2.0 28 01/08/18 08:00 98.1 78 20 134/78 99 98.1 01/08/18 04:41 94 Nasal Cannula 2.0 01/08/18 04:41 96.9 80 20 119/71 94 Nasal Cannula 96.9 01/08/18 00:00 98.1 86 19 122/79 93 98.1 01/07/18 20:00 98.8 89 20 136/68 99 98.8 01/07/18 19:40 Nasal Cannula 2.0 28 01/07/18 19:40 83 20 Nasal Cannula 2.0 28 01/07/18 19:40 97 Nasal Cannula 2.0 28 01/07/18 16:00 98.2 82 19 134/74 99 98.2 Intake and Output 01/07/18 01/08/18 19:00 07:00 Intake Total 870 ml 510 ml Output Total 800 ml 200 ml Balance 70 ml 310 ml Intake Free Water 120 ml 60 ml Tube Feeding 750 ml 450 ml Output Urine Total 800 ml 200 ml # Bowel Movements 2 Laboratory Tests 01/08/18 06:15: White Blood Count 4.4#L, Red Blood Count 3.56L, Hemoglobin 11.0L, Hematocrit 33.8L, Mean Corpuscular Volume 95, Mean Corpuscular Hemoglobin 30.8, Mean Corpuscular Hemoglobin Concent 32.5, Red Cell Distribution Width 13.7, Platelet Count 285, Mean Platelet Volume 8.0, Neutrophils (%) (Auto) 59.8, Lymphocytes (% ) (Auto) 24.1, Monocytes (%) (Auto) 8.3, Eosinophils (%) (Auto) 7.2H, Basophils (%) (Auto) 0.6, Sodium Level 142, Potassium Level 3.9, Chloride Level 106, Carbon Dioxide Level 28, Anion Gap 8, Blood Urea Nitrogen 14, Creatinine 0.7, Estimat Glomerular Filtration Rate , Glucose Level 116H, Calcium Level 8.8 Height (Feet): 5 Height (Inches): 10.00 Weight (Pounds): 145 Cardiovascular: normal rate Respiratory/Chest: lungs clear Extremities: other - no edema WHIT TAYLOR Jan 08, 2018 15:03
[2018-01-08 15:48] VITALS: BP 144/88
--- NOTE | 2018-01-08 16:43 | General Progress Note ---
Assessment/Plan Status Narrative febrile ilnes , possible flu contaminated blood culture with coag neg staph doing better dc planning to ecf tommorrow. on flu treamtent antibiotic to be determined by ID Subjective Date patient seen: Jan 08, 2018 Time patient seen: 16:41 Constitutional: Reports: no symptoms HEENT: Reports: no symptoms Cardiovascular: Reports: no symptoms Allergies: Coded Allergies: HYDROMORPHONE (Unverified Allergy, Unknown, 01/04/18) Subjective doing better has no complaint more alert Objective Last 24 Hour Vital Signs Date Time Temp Pulse Resp B/P (MAP) Pulse Ox O2 Delivery O2 Flow Rate FiO2 01/08/18 15:48 98.2 94 20 144/88 99 98.2 01/08/18 12:00 98.1 97 20 146/87 94 98.1 01/08/18 09:56 98 134/78 01/08/18 08:44 98 20 Nasal Cannula 2.0 28 01/08/18 08:44 Nasal Cannula 2.0 28 01/08/18 08:44 99 Nasal Cannula 2.0 28 01/08/18 08:00 98.1 78 20 134/78 99 98.1 01/08/18 04:41 94 Nasal Cannula 2.0 01/08/18 04:41 96.9 80 20 119/71 94 Nasal Cannula 96.9 01/08/18 00:00 98.1 86 19 122/79 93 98.1 01/07/18 20:00 98.8 89 20 136/68 99 98.8 01/07/18 19:40 Nasal Cannula 2.0 28 01/07/18 19:40 83 20 Nasal Cannula 2.0 28 01/07/18 19:40 97 Nasal Cannula 2.0 28 Intake and Output 01/07/18 01/08/18 19:00 07:00 Intake Total 870 ml 510 ml Output Total 800 ml 200 ml Balance 70 ml 310 ml Intake Free Water 120 ml 60 ml Tube Feeding 750 ml 450 ml Output Urine Total 800 ml 200 ml # Bowel Movements 2 Laboratory Tests 01/08/18 06:15: White Blood Count 4.4#L, Red Blood Count 3.56L, Hemoglobin 11.0L, Hematocrit 33.8L, Mean Corpuscular Volume 95, Mean Corpuscular Hemoglobin 30.8, Mean Corpuscular Hemoglobin Concent 32.5, Red Cell Distribution Width 13.7, Platelet Count 285, Mean Platelet Volume 8.0, Neutrophils (%) (Auto) 59.8, Lymphocytes (% ) (Auto) 24.1, Monocytes (%) (Auto) 8.3, Eosinophils (%) (Auto) 7.2H, Basophils (%) (Auto) 0.6, Sodium Level 142, Potassium Level 3.9, Chloride Level 106, Carbon Dioxide Level 28, Anion Gap 8, Blood Urea Nitrogen 14, Creatinine 0.7, Estimat Glomerular Filtration Rate , Glucose Level 116H, Calcium Level 8.8 Height (Feet): 5 Height (Inches): 10.00 Weight (Pounds): 145 General Appearance: WD/WN EENT: PERRL/EOMI Neck: non-tender Cardiovascular: normal rate, regular rhythm, no JVD Respiratory/Chest: lungs clear Abdomen: soft YANELY HAYS Jan 08, 2018 16:42
--- NOTE | 2018-01-08 17:18 | Pulmonology Progress Note ---
Assessment/Plan Problems: (1) Healthcare-associated pneumonia (2) Sepsis (3) UTI (urinary tract infection) (4) At high risk for aspiration (5) History of CVA (cerebrovascular accident) (6) Advanced dementia (7) G tube feedings Assessment/Plan GNR in sputum repeat BC, could be contaminated improving respiratory treatment check cultures sinus rhythm dvt prophylaxis chest PT. check electrolytes check labs in am Subjective ROS Limited/Unobtainable: No Allergies: Coded Allergies: HYDROMORPHONE (Unverified Allergy, Unknown, 01/04/18) Objective Last 24 Hour Vital Signs Date Time Temp Pulse Resp B/P (MAP) Pulse Ox O2 Delivery O2 Flow Rate FiO2 01/08/18 15:48 98.2 94 20 144/88 99 98.2 01/08/18 12:00 98.1 97 20 146/87 94 98.1 01/08/18 09:56 98 134/78 01/08/18 08:44 98 20 Nasal Cannula 2.0 28 01/08/18 08:44 Nasal Cannula 2.0 28 01/08/18 08:44 99 Nasal Cannula 2.0 28 01/08/18 08:00 98.1 78 20 134/78 99 98.1 01/08/18 04:41 94 Nasal Cannula 2.0 01/08/18 04:41 96.9 80 20 119/71 94 Nasal Cannula 96.9 01/08/18 00:00 98.1 86 19 122/79 93 98.1 01/07/18 20:00 98.8 89 20 136/68 99 98.8 01/07/18 19:40 Nasal Cannula 2.0 28 01/07/18 19:40 83 20 Nasal Cannula 2.0 28 01/07/18 19:40 97 Nasal Cannula 2.0 28 Intake and Output 01/07/18 01/08/18 19:00 07:00 Intake Total 870 ml 510 ml Output Total 800 ml 200 ml Balance 70 ml 310 ml Intake Free Water 120 ml 60 ml Tube Feeding 750 ml 450 ml Output Urine Total 800 ml 200 ml # Bowel Movements 2 Objective General Appearance: WD/WN HEENT: normocephalic, atraumatic Respiratory/Chest: chest wall non-tender, lungs clear, no accessory muscle use Cardiovascular: normal rate, regular rhythm Abdomen: normal bowel sounds, gtube in place Genitourinary: normal external genitalia Extremities: no cyanosis Skin: no lesions Neurologic/Psychiatric: cfa II-XII grossly normal Lymphatic: no neck adenopathy Microbiology Date/Time Source Procedure Growth Status 01/06/18 01:30 Sputum Gram Stain - Final Resulted 01/06/18 01:30 Sputum Culture - Preliminary Gram Negative [facility] Resulted Laboratory Tests 01/08/18 06:15: White Blood Count 4.4#L, Red Blood Count 3.56L, Hemoglobin 11.0L, Hematocrit 33.8L, Mean Corpuscular Volume 95, Mean Corpuscular Hemoglobin 30.8, Mean Corpuscular Hemoglobin Concent 32.5, Red Cell Distribution Width 13.7, Platelet Count 285, Mean Platelet Volume 8.0, Neutrophils (%) (Auto) 59.8, Lymphocytes (% ) (Auto) 24.1, Monocytes (%) (Auto) 8.3, Eosinophils (%) (Auto) 7.2H, Basophils (%) (Auto) 0.6, Sodium Level 142, Potassium Level 3.9, Chloride Level 106, Carbon Dioxide Level 28, Anion Gap 8, Blood Urea Nitrogen 14, Creatinine 0.7, Estimat Glomerular Filtration Rate , Glucose Level 116H, Calcium Level 8.8 Current Medications Medications (Trade) Dose Ordered Sig/Nelson Route PRN Reason Start Time Stop Time Status Last Admin Dose Admin Acetaminophen (Tylenol) 650 mg Q6H PRN ORAL Mild Pain/Temp > 100.5 01/06/18 16:30 02/03/18 16:29 Acetaminophen/ Codeine Phosphate (Tylenol #3) 1 tab Q4H PRN ORAL Pain Scale (6-10) 01/06/18 17:30 01/11/18 09:29 Amlodipine Besylate (Norvasc) 5 mg DAILY GT 01/07/18 09:00 02/04/18 08:59 01/08/18 09:56 Atorvastatin Calcium (Lipitor) 20 mg BEDTIME ORAL 01/06/18 21:00 02/03/18 20:59 01/07/18 20:03 Baclofen (Lioresal) 5 mg THREE TIMES A DAY GT 01/06/18 18:00 02/03/18 12:59 01/08/18 14:38 Ceftriaxone Sodium 1 gm/ Sodium Chloride 55 ml @ 110 mls/hr Q24H IVPB 01/07/18 16:30 01/08/18 23:59 01/07/18 17:27 Clopidogrel Bisulfate (Plavix) 75 mg DAILY GT 01/07/18 09:00 02/03/18 10:59 01/08/18 09:54 Docusate Sodium (Colace) 100 mg BID GT 01/06/18 18:00 02/03/18 17:59 01/07/18 18:26 Finasteride (Proscar) 5 mg DAILY ORAL 01/07/18 09:00 02/03/18 12:29 01/08/18 09:54 Gabapentin (Neurontin) 250 mg THREE TIMES A DAY GT 01/06/18 18:00 02/03/18 12:59 01/08/18 14:37 Ipratropium [place] (Atrovent) 500 mcg Q6H PRN HHN Shortness of Breath 01/06/18 17:00 01/09/18 16:59 01/07/18 11:14 Lactobacillus Acidophilus (Culturelle) 1 tab TWICE A DAY ORAL 01/06/18 18:00 02/03/18 17:59 01/08/18 09:55 Lansoprazole (Prevacid) 30 mg DAILY GT 01/07/18 09:00 02/04/18 08:59 01/08/18 09:55 Multivitamins Therapeutic (Therapeutic Multivitamin) 1 ea DAILY ORAL 01/07/18 09:00 02/03/18 10:59 01/08/18 09:00 Oseltamivir Phosphate (Tamiflu) 75 mg Q12HR ORAL 01/06/18 21:00 01/09/18 23:59 01/08/18 09:55 Promethazine HCl/ Codeine (Phenergan with Codeine) 5 ml Q4H PRN ORAL For Cough 01/06/18 17:00 02/04/18 12:59 Sennosides (Senokot) 1 tab DAILY GT 01/07/18 09:00 02/04/18 08:59 01/07/18 08:20 Tamsulosin HCl (Flomax) 0.4 mg BEDTIME ORAL 01/06/18 21:00 02/03/18 20:59 01/07/18 20:03 Theophylline (Giovanni-Dur) 100 mg EVERY 12 HOURS ORAL 01/06/18 21:00 02/04/18 20:59 01/08/18 09:55 Vitamin B Complex (Vitamin B Complex) 1 ea DAILY GT 01/07/18 09:00 02/04/18 08:59 01/08/18 09:55 Sowmya Abbasi MD Jan 08, 2018 17:18
[2018-01-08] MEDS: cefTRIAXone 1 GM in NS 55 ML IVPB SCH (18:12)
[2018-01-08 20:00] VITALS: BP 120/68
--- NOTE | 2018-01-08 20:02 | Infectious Diseases Prog Note ---
Assessment/Plan Assessment/Plan Assessment: Acute respiratory distress- suspicion of Flu depiste neg sc test given high fevers, leukopenia - no obvious pNA on CXR SCx : GNR -CXR 01/06: Hypoventilatory exam with bibasilar atelectasis. 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 No acute process -CXR: Hypoventilatory exam. No definite acute process -Influenza sc neg -sp cx p Fever, SP -u./a neg / CoNS bacteremia- likely contaminant Leukopenia, mild HTN CAD CVA, multiple - w/ residual quadriparesis dysphagia s/p GT Dm2 BPH severe OA correction resident Plan: -ceftriaxone ( AB Rx # ) for possible PNA/bronchitis , DC Continue empiric Tamiflu # 5 /5 01/07 SP IV Zosyn d# 4 -01/06 SP IV Vancomycin #3 -01/05 SP Doxycycline #2 - -f/u cx -Monitor CBC/CMP, temperatures -repeat 2 sets of Bcx Subjective Allergies: Coded Allergies: HYDROMORPHONE (Unverified Allergy, Unknown, 01/04/18) Subjective afebrile Objective Vital Signs Last 24 Hour Vital Signs Date Time Temp Pulse Resp B/P (MAP) Pulse Ox O2 Delivery O2 Flow Rate FiO2 01/08/18 15:48 98.2 94 20 144/88 99 98.2 01/08/18 12:00 98.1 97 20 146/87 94 98.1 01/08/18 09:56 98 134/78 01/08/18 08:44 98 20 Nasal Cannula 2.0 28 01/08/18 08:44 Nasal Cannula 2.0 28 01/08/18 08:44 99 Nasal Cannula 2.0 28 01/08/18 08:00 98.1 78 20 134/78 99 98.1 01/08/18 04:41 94 Nasal Cannula 2.0 01/08/18 04:41 96.9 80 20 119/71 94 Nasal Cannula 96.9 01/08/18 00:00 98.1 86 19 122/79 93 98.1 01/07/18 20:00 98.8 89 20 136/68 99 98.8 Height (Feet): 5 Height (Inches): 10.00 Weight (Pounds): 145 HEENT: atraumatic Respiratory/Chest: lungs clear Cardiovascular: normal rate Abdomen: normal bowel sounds Microbiology Date/Time Source Procedure Growth Status 01/06/18 01:30 Sputum Gram Stain - Final Resulted 01/06/18 01:30 Sputum Culture - Preliminary Gram Negative [facility] Resulted Laboratory Tests Test 01/08/18 06:15 White Blood Count 4.4 K/UL (4.8-10.8) #L Red Blood Count 3.56 M/UL (4.70-6.10) L Hemoglobin 11.0 G/DL (14.2-18.0) L Hematocrit 33.8 % (42.0-52.0) L Mean Corpuscular Volume 95 FL (80-99) Mean Corpuscular Hemoglobin 30.8 PG (27.0-31.0) Mean Corpuscular Hemoglobin Concent 32.5 G/DL (32.0-36.0) Red Cell Distribution Width 13.7 % (11.6-14.8) Platelet Count 285 K/UL (150-450) Mean Platelet Volume 8.0 FL (6.5-10.1) Neutrophils (%) (Auto) 59.8 % (45.0-75.0) Lymphocytes (%) (Auto) 24.1 % (20.0-45.0) Monocytes (%) (Auto) 8.3 % (1.0-10.0) Eosinophils (%) (Auto) 7.2 % (0.0-3.0) H Basophils (%) (Auto) 0.6 % (0.0-2.0) Sodium Level 142 MMOL/L (136-145) Potassium Level 3.9 MMOL/L (3.5-5.1) Chloride Level 106 MMOL/L (98-107) Carbon Dioxide Level 28 MMOL/L (21-32) Anion Gap 8 mmol/L (5-15) Blood Urea Nitrogen 14 mg/dL (7-18) Creatinine 0.7 MG/DL (0.55-1.30) Estimat Glomerular Filtration Rate mL/min (>60) Glucose Level 116 MG/DL (74-106) H Calcium Level 8.8 MG/DL (8.5-10.1) Current Medications Medications (Trade) Dose Ordered Sig/Nelson Route PRN Reason Start Time Stop Time Status Last Admin Dose Admin Acetaminophen (Tylenol) 650 mg Q6H PRN ORAL Mild Pain/Temp > 100.5 01/06/18 16:30 02/03/18 16:29 Acetaminophen/ Codeine Phosphate (Tylenol #3) 1 tab Q4H PRN ORAL Pain Scale (6-10) 01/06/18 17:30 01/11/18 09:29 Amlodipine Besylate (Norvasc) 5 mg DAILY GT 01/07/18 09:00 02/04/18 08:59 01/08/18 09:56 Atorvastatin Calcium (Lipitor) 20 mg BEDTIME ORAL 01/06/18 21:00 02/03/18 20:59 01/07/18 20:03 Baclofen (Lioresal) 5 mg THREE TIMES A DAY GT 01/06/18 18:00 02/03/18 12:59 01/08/18 18:12 Ceftriaxone Sodium 1 gm/ Sodium Chloride 55 ml @ 110 mls/hr Q24H IVPB 01/07/18 16:30 01/08/18 23:59 01/08/18 18:12 Clopidogrel Bisulfate (Plavix) 75 mg DAILY GT 01/07/18 09:00 02/03/18 10:59 01/08/18 09:54 Docusate Sodium (Colace) 100 mg BID GT 01/06/18 18:00 02/03/18 17:59 01/07/18 18:26 Finasteride (Proscar) 5 mg DAILY ORAL 01/07/18 09:00 02/03/18 12:29 01/08/18 09:54 Gabapentin (Neurontin) 250 mg THREE TIMES A DAY GT 01/06/18 18:00 02/03/18 12:59 01/08/18 18:11 Ipratropium [place] (Atrovent) 500 mcg Q6H PRN HHN Shortness of Breath 01/06/18 17:00 01/09/18 16:59 01/07/18 11:14 Lactobacillus Acidophilus (Culturelle) 1 tab TWICE A DAY ORAL 01/06/18 18:00 02/03/18 17:59 01/08/18 18:12 Lansoprazole (Prevacid) 30 mg DAILY GT 01/07/18 09:00 02/04/18 08:59 01/08/18 09:55 Multivitamins Therapeutic (Therapeutic Multivitamin) 1 ea DAILY ORAL 01/07/18 09:00 02/03/18 10:59 01/08/18 09:00 Oseltamivir Phosphate (Tamiflu) 75 mg Q12HR ORAL 01/06/18 21:00 01/09/18 23:59 01/08/18 09:55 Promethazine HCl/ Codeine (Phenergan with Codeine) 5 ml Q4H PRN ORAL For Cough 01/06/18 17:00 02/04/18 12:59 Sennosides (Senokot) 1 tab DAILY GT 01/07/18 09:00 02/04/18 08:59 01/07/18 08:20 Tamsulosin HCl (Flomax) 0.4 mg BEDTIME ORAL 01/06/18 21:00 02/03/18 20:59 01/07/18 20:03 Theophylline (Giovanni-Dur) 100 mg EVERY 12 HOURS ORAL 01/06/18 21:00 02/04/18 20:59 01/08/18 09:55 Vitamin B Complex (Vitamin B Complex) 1 ea DAILY GT 01/07/18 09:00 02/04/18 08:59 01/08/18 09:55 JANET MURPHY M.D. Jan 08, 2018 20:02
[2018-01-08] MEDS: Ipratropium 0.02% Inh Soln 2.5ml UD HHN PRN (20:19)
[2018-01-08] MEDS: Tamsulosin 0.4mg cap ORAL SCH (20:35)
[2018-01-08] MEDS: Atorvastatin 20mg tab ORAL SCH (20:36)
[2018-01-09] VITALS: BP 143/79
[2018-01-09 04:00] VITALS: BP 152/89
[2018-01-09 07:35] LABS: BASOPHILS % (AUTO) 0.5 % (0.0-2.0); EOSINOPHILS % (AUTO) 9.4 % (0.0-3.0); HEMATOCRIT 33.5 % (42.0-52.0); HEMOGLOBIN 10.8 G/DL (14.2-18.0); LYMPHOCYTES % (AUTO) 29.3 % (20.0-45.0); MEAN CORPUSCULAR VOLUME 95 FL (80-99); MONOCYTES % (AUTO) 8.9 % (1.0-10.0); PLATELET COUNT 315 K/UL (150-450); RED BLOOD COUNT 3.51 M/UL (4.70-6.10); RED CELL DISTRIBUTION WIDTH 13.5 % (11.6-14.8); WHITE BLOOD COUNT 4.5 K/UL (4.8-10.8)
[2018-01-09 07:53] LABS: ALANINE AMINOTRANSFERASE 50 U/L (12-78); ALBUMIN 2.7 G/DL (3.4-5.0); ALBUMIN/GLOBULIN RATIO 0.5 (1.0-2.7); ALKALINE PHOSPHATASE 80 U/L (46-116); ANION GAP 8 mmol/L (5-15); ASPARTATE AMINO TRANSFERASE 32 U/L (15-37); BILIRUBIN,TOTAL 0.5 MG/DL (0.2-1.0); BLOOD UREA NITROGEN 17 mg/dL (7-18); CALCIUM 8.8 MG/DL (8.5-10.1); CARBON DIOXIDE 28 MMOL/L (21-32); CHLORIDE 103 MMOL/L (98-107); CREATININE 0.7 MG/DL (0.55-1.30); PHOSPHORUS 3.2 MG/DL (2.5-4.9); SODIUM 139 MMOL/L (136-145)
[2018-01-09 08:00] VITALS: BP 133/79
--- NOTE | 2018-01-09 08:56 | General Progress Note ---
Assessment/Plan Problem List: (1) Arthritis ICD Codes: M19.90 - Arthritis SNOMED: 8666597 (2) Failure to thrive ICD Codes: R62.51 - Failure to thrive (child) SNOMED: 77093267 (3) G tube feedings ICD Codes: Z93.1 - Gastrostomy status SNOMED: 059289798, 607800949 (4) HTN (hypertension) ICD Codes: I10 - HTN (hypertension) SNOMED: 10300120 (5) Anemia ICD Codes: D64.9 - Anemia SNOMED: 052566785 Assessment/Plan tolerating GTF stable H&H neg stool ob needs out patient fu fo GI procedures Subjective ROS Limited/Unobtainable: No Allergies: Coded Allergies: HYDROMORPHONE (Unverified Allergy, Unknown, 01/04/18) Objective Last 24 Hour Vital Signs Date Time Temp Pulse Resp B/P (MAP) Pulse Ox O2 Delivery O2 Flow Rate FiO2 01/09/18 08:00 97.9 99 20 133/79 98 97.9 01/09/18 07:06 98 20 Nasal Cannula 2.0 28 01/09/18 07:06 Nasal Cannula 2.0 28 01/09/18 07:06 98 Nasal Cannula 2.0 28 01/09/18 04:00 98.2 95 18 152/89 98 98.2 01/09/18 00:00 99.0 89 20 143/79 98 Room Air 99.0 01/08/18 20:28 Nasal Cannula 2.0 28 01/08/18 20:20 99 Nasal Cannula 2.0 28 01/08/18 20:20 99 20 Nasal Cannula 2.0 28 01/08/18 20:19 74 18 99 Nasal Cannula 2.0 28 01/08/18 20:00 98.6 78 18 120/68 99 Room Air 98.6 01/08/18 15:48 98.2 94 20 144/88 99 98.2 01/08/18 12:00 98.1 97 20 146/87 94 98.1 01/08/18 09:56 98 134/78 Intake and Output 01/08/18 01/09/18 19:00 07:00 Intake Total 75 ml 1025 ml Output Total 350 ml 400 ml Balance -275 ml 625 ml Intake Free Water 200 ml Tube Feeding 75 ml 825 ml Output Urine Total 350 ml 400 ml # Bowel Movements 1 Laboratory Tests 01/09/18 05:50: White Blood Count 4.5L, Red Blood Count 3.51L, Hemoglobin 10.8L, Hematocrit 33.5L, Mean Corpuscular Volume 95, Mean Corpuscular Hemoglobin 30.8, Mean Corpuscular Hemoglobin Concent 32.3, Red Cell Distribution Width 13.5, Platelet Count 315, Mean Platelet Volume 7.7, Neutrophils (%) (Auto) 52.0, Lymphocytes (% ) (Auto) 29.3, Monocytes (%) (Auto) 8.9, Eosinophils (%) (Auto) 9.4H, Basophils (%) (Auto) 0.5, Erythrocyte Sedimentation Rate [Pending], Sodium Level 139, Potassium Level 4.0, Chloride Level 103, Carbon Dioxide Level 28, Anion Gap 8, Blood Urea Nitrogen 17, Creatinine 0.7, Estimat Glomerular Filtration Rate , Glucose Level 117H, Calcium Level 8.8, Phosphorus Level 3.2, Magnesium Level 1.6L, Total Bilirubin 0.5, Aspartate Amino Transf (AST/SGOT) 32, Alanine Aminotransferase (ALT/SGPT) 50, Alkaline Phosphatase 80, Total Protein 8.0, Albumin 2.7L, Globulin 5.3, Albumin/Globulin Ratio 0.5L Height (Feet): 5 Height (Inches): 10.00 Weight (Pounds): 145 General Appearance: no apparent distress EENT: normal ENT inspection Neck: supple Cardiovascular: normal rate Respiratory/Chest: decreased breath sounds Abdomen: normal bowel sounds, non tender, soft Extremities: non-tender BILLY JENNINGS Jan 09, 2018 08:56
[2018-01-09] MEDS: Docusate 100mg/10ml Liq GT SCH (09:23)
[2018-01-09] MEDS: Gabapentin 300 MG/6 ML Soln GT SCH ×2 (09:24→13:51)
[2018-01-09] MEDS: Multivitamin w/Minerals tab ORAL SCH (09:24)
[2018-01-09] MEDS: Lactobacillus-GG tablet ORAL SCH (09:24)
[2018-01-09] MEDS: Theophylline ER 100mg ORAL SCH (09:39)
[2018-01-09 12:00] VITALS: BP 133/76
[2018-01-09] MEDS ORDERED: THEOPHYLLINE A100 MG ORAL (14:01)
[2018-01-09] MEDS ORDERED: LANSOPRAZOLE30 MG GT (14:02)
[2018-01-09] MEDS ORDERED: PROMETHAZINE-C118 M1 ORAL (14:05)
[2018-01-09] MEDS ORDERED: ATORVASTATIN CA20 MG ORAL (14:06)
[2018-01-09] MEDS ORDERED: CEFEPIME-D2 GM/50 ML IVPB (14:40)
--- NOTE | 2018-01-09 16:08 | Nephrology Progress Note ---
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, old (6) Arthritis (7) G tube feedings (8) Hypokalemia Assessment: ok (9) Hypomagnesemia Plan abxs Resp treatments TF IV Mag Subjective Subjective In NAD Objective Objective Last 24 Hour Vital Signs Date Time Temp Pulse Resp B/P (MAP) Pulse Ox O2 Delivery O2 Flow Rate FiO2 01/09/18 12:00 98.2 95 20 133/76 96 98.2 01/09/18 09:24 99 133/79 01/09/18 08:00 97.9 99 20 133/79 98 97.9 01/09/18 07:06 98 20 Nasal Cannula 2.0 28 01/09/18 07:06 Nasal Cannula 2.0 28 01/09/18 07:06 98 Nasal Cannula 2.0 28 01/09/18 04:00 98.2 95 18 152/89 98 98.2 01/09/18 00:00 99.0 89 20 143/79 98 Room Air 99.0 01/08/18 20:28 Nasal Cannula 2.0 28 01/08/18 20:20 99 Nasal Cannula 2.0 28 01/08/18 20:20 99 20 Nasal Cannula 2.0 28 01/08/18 20:19 74 18 99 Nasal Cannula 2.0 28 01/08/18 20:00 98.6 78 18 120/68 99 Room Air 98.6 Intake and Output 01/08/18 01/09/18 19:00 07:00 Intake Total 1080 ml 1100 ml Output Total 350 ml 400 ml Balance 730 ml 700 ml Intake Free Water 180 ml 200 ml Tube Feeding 900 ml 900 ml Output Urine Total 350 ml 400 ml # Bowel Movements 1 Laboratory Tests 01/09/18 05:50: White Blood Count 4.5L, Red Blood Count 3.51L, Hemoglobin 10.8L, Hematocrit 33.5L, Mean Corpuscular Volume 95, Mean Corpuscular Hemoglobin 30.8, Mean Corpuscular Hemoglobin Concent 32.3, Red Cell Distribution Width 13.5, Platelet Count 315, Mean Platelet Volume 7.7, Neutrophils (%) (Auto) 52.0, Lymphocytes (% ) (Auto) 29.3, Monocytes (%) (Auto) 8.9, Eosinophils (%) (Auto) 9.4H, Basophils (%) (Auto) 0.5, Erythrocyte Sedimentation Rate 93H, Sodium Level 139, Potassium Level 4.0, Chloride Level 103, Carbon Dioxide Level 28, Anion Gap 8, Blood Urea Nitrogen 17, Creatinine 0.7, Estimat Glomerular Filtration Rate , Glucose Level 117H, Calcium Level 8.8, Phosphorus Level 3.2, Magnesium Level 1.6L, Total Bilirubin 0.5, Aspartate Amino Transf (AST/SGOT) 32, Alanine Aminotransferase ( ALT/SGPT) 50, Alkaline Phosphatase 80, Total Protein 8.0, Albumin 2.7L, Globulin 5.3, Albumin/Globulin Ratio 0.5L, Hepatitis A IgM Antibody [Pending], Hepatitis B Surface Antigen [Pending], Hepatitis B Core IgM Antibody [Pending], Hepatitis C Antibody [Pending], HIV (1&2) Antibody Rapid Negative Height (Feet): 5 Height (Inches): 10.00 Weight (Pounds): 145 Cardiovascular: normal rate Respiratory/Chest: lungs clear Extremities: other - no edema WHIT TAYLOR Jan 09, 2018 16:08
[2018-01-09] MEDS ORDERED: cefTRIAXone 1 GM in NS 55 ML IVPB SCH (16:30)
--- NOTE | 2018-01-09 22:22 | Pulmonology Progress Note ---
Assessment/Plan Problems: (1) Healthcare-associated pneumonia (2) Sepsis (3) UTI (urinary tract infection) (4) At high risk for aspiration (5) History of CVA (cerebrovascular accident) (6) Advanced dementia (7) G tube feedings Assessment/Plan GNR in sputum repeat BC, could be contaminated improving respiratory treatment check cultures sinus rhythm dvt prophylaxis chest PT. check electrolytes dc planning Subjective ROS Limited/Unobtainable: Yes Constitutional: Reports: no symptoms Allergies: Coded Allergies: HYDROMORPHONE (Unverified Allergy, Unknown, 01/04/18) Objective Last 24 Hour Vital Signs Date Time Temp Pulse Resp B/P (MAP) Pulse Ox O2 Delivery O2 Flow Rate FiO2 01/09/18 12:00 98.2 95 20 133/76 96 98.2 01/09/18 12:00 Nasal Cannula 2.0 01/09/18 09:24 99 133/79 01/09/18 08:00 97.9 99 20 133/79 98 97.9 01/09/18 08:00 Nasal Cannula 2.0 01/09/18 07:06 98 20 Nasal Cannula 2.0 28 01/09/18 07:06 Nasal Cannula 2.0 28 01/09/18 07:06 98 Nasal Cannula 2.0 28 01/09/18 04:00 98.2 95 18 152/89 98 98.2 01/09/18 00:00 99.0 89 20 143/79 98 Room Air 99.0 Intake and Output 01/08/18 01/09/18 19:00 07:00 Intake Total 1080 ml 1100 ml Output Total 350 ml 400 ml Balance 730 ml 700 ml Intake Free Water 180 ml 200 ml Tube Feeding 900 ml 900 ml Output Urine Total 350 ml 400 ml # Bowel Movements 1 Objective General Appearance: WD/WN HEENT: normocephalic, atraumatic Respiratory/Chest: chest wall non-tender, lungs clear, no accessory muscle use Cardiovascular: normal rate, regular rhythm Abdomen: normal bowel sounds, gtube in place Genitourinary: normal external genitalia Extremities: no cyanosis Skin: no lesions Neurologic/Psychiatric: multimedia artist II-XII grossly normal Lymphatic: no neck adenopathy Microbiology Date/Time Source Procedure Growth Status 01/07/18 16:50 Blood Blood Culture - Preliminary NO GROWTH AFTER 24 HOURS Resulted 01/07/18 16:45 Blood Blood Culture - Preliminary NO GROWTH AFTER 24 HOURS Resulted Laboratory Tests 01/09/18 05:50: White Blood Count 4.5L, Red Blood Count 3.51L, Hemoglobin 10.8L, Hematocrit 33.5L, Mean Corpuscular Volume 95, Mean Corpuscular Hemoglobin 30.8, Mean Corpuscular Hemoglobin Concent 32.3, Red Cell Distribution Width 13.5, Platelet Count 315, Mean Platelet Volume 7.7, Neutrophils (%) (Auto) 52.0, Lymphocytes (% ) (Auto) 29.3, Monocytes (%) (Auto) 8.9, Eosinophils (%) (Auto) 9.4H, Basophils (%) (Auto) 0.5, Erythrocyte Sedimentation Rate 93H, Sodium Level 139, Potassium Level 4.0, Chloride Level 103, Carbon Dioxide Level 28, Anion Gap 8, Blood Urea Nitrogen 17, Creatinine 0.7, Estimat Glomerular Filtration Rate , Glucose Level 117H, Calcium Level 8.8, Phosphorus Level 3.2, Magnesium Level 1.6L, Total Bilirubin 0.5, Aspartate Amino Transf (AST/SGOT) 32, Alanine Aminotransferase ( ALT/SGPT) 50, Alkaline Phosphatase 80, Total Protein 8.0, Albumin 2.7L, Globulin 5.3, Albumin/Globulin Ratio 0.5L, Hepatitis A IgM Antibody [Pending], Hepatitis B Surface Antigen [Pending], Hepatitis B Core IgM Antibody [Pending], Hepatitis C Antibody [Pending], HIV (1&2) Antibody Rapid Negative Sowmya Abbasi MD Jan 09, 2018 22:22
--- NOTE | 2018-01-10 15:57 | Discharge Summary ---
Discharge Summary Hospital Course Date of Admission Jan 04, 2018 at 05:12 Date of Discharge Jan 09, 2018 at 17:30 Admitting Diagnosis Sepsis, pneumonia HPI Kenneth Nur is a 77 year old male who was admitted on Jan 04, 2018 at 05: 12 for Sepsis,Pneumonia Hospital Course dc summary #[id number] Discharge Medications Continued Medications: Acetaminophen With Codeine (T#3) (Tylenol #3 Tab*) Y Tab 1 TAB ORAL Q4H PRN for For Pain, TAB Acetaminophen* (Tylenol Extra Strength*) 500 Mg Tablet 325 MG GT Q6H PRN for Mild Pain/Temp > 100.5, TAB 0 Refills Amlodipine Besylate* (Amlodipine Besylate*) 5 Mg Tablet 5 MG PO DAILY, #10 TAB Take one tablet by mouth daily Atorvastatin Calcium* (Atorvastatin Calcium*) 20 Mg Tablet 20 MG ORAL BEDTIME, TAB Baclofen* (Baclofen*) 10 Mg Tablet 5 MG GT THREE TIMES A DAY, TAB Cefepime Hcl/D5w (Cefepime-Dextrose 2 Gm/50 Ml) 2 Gm/50 Ml Piggyback 2 GM IVPB EVERY 12 HOURS for 7 Days, BAG Clopidogrel Bisulfate* (Plavix*) 75 Mg Tablet 75 MG GT DAILY, TAB Codeine/Promethazine Hcl* (Promethazine-Codeine Syrup*) 118 Ml Syrup 5 ML ORAL Q4H PRN for For Cough, ML 0 Refills Docusate Sodium* (Docusate Sodium*) 100 Mg Capsule 100 MG GT BID for Constipation, CAP Finasteride* (Proscar*) 5 Mg Tablet 5 MG GT DAILY, #30 TAB 0 Refills Gabapentin* (Gabapentin*) 100 Mg Capsule 250 MG GT THREE TIMES A DAY, CAP Ipratropium Redbird 0.5MG/2.5ML (Ipratropium Redbird 0.5MG/2.5ML) 0.2 Mg/1 Ml Solution 0.5 MG HHN Q6H PRN for Shortness of Breath, #28 EA Lactobacillus Acidophilus (Acidophilus Probiotic) 0.5 Mg Tablet 1 MG PO, TAB Lansoprazole* (Lansoprazole*) 30 Mg Capsule.dr 30 MG GT DAILY, CAP Multivitamin with Minerals (Multivitamins with Minerals) 1 Each Tablet 1 TAB GT DAILY, TAB Sennosides (Senna) 8.6 Mg Tablet 8.6 MG GT DAILY for Constipation, TAB Tamsulosin Hcl (Tamsulosin Hcl*) 0.4 Mg Cap.er.24h 0.4 MG GT BEDTIME, CAP Theophylline (Theodur*) 100 Mg Tab.er.12h 100 MG ORAL Q12HR, #30 TAB 0 Refills Vit B Complex 100 Cmb #3/Herbs (Balanced B-100 Tablet) 100 Mg Tablet 100 MG PO, TAB Discharge Condition Upon Discharge: stable Discharge Disposition Patient was discharged to SNF/Subacute Facility(03) Discharge Diagnoses: Discharge Instructions Discharge Instructions Special Instructions I have been assigned to complete a D/C Summary on this account. I was not involved in the patient management Tiera Pat NP (Vanchtein) Jan 10, 2018 15:57
--- NOTE | 2018-01-11 00:30 | Discharge Summary 2 SIG ---
DATE OF ADMISSION: 01/04/2018 DATE OF DISCHARGE: 01/09/2018 REASON FOR ADMISSION: 77 years old male with past medical history significant for hypertension, extensive cerebrovascular disease with quadriparesis, osteoarthritis, and diabetes, presented to the emergency department with shortness of breath. He was found to be hypoxic, tachycardic, and febrile. No leukocytosis. Troponin negative. EKG showed sinus tachycardia, no acute ischemic changes. Chest x-ray with evidence of possible right upper lobe infiltrate. Sodium -130. The patient admitted with diagnoses of possible sepsis, possible healthcare-associated pneumonia, high aspiration risk, advanced dementia, dysphagia, G-tube feeding, and hyponatremia. HOSPITAL COURSE: The patient admitted. The patient started on cautious hydration. Pulmonology, ID specialist, credit collection associate, neurologist, and GI consults were requested. The patient was on empiric antibiotics. There was a high suspicion for flu, given persistent fever and leukopenia despite negative rapid influenza screen test. The patient was treated with Tamiflu for possible influenza due to the high suspicion. The patient was also on empiric antibiotics as per ID direction. Sputum culture revealed Pseudomonas aeruginosa and Providencia. Blood culture 10/28 revealed Staph coagulase-negative, likely contaminant as per ID specialist. Repeated blood culture on 01/07/2018 were negative. The patient was followed up with chest x-ray. The patient status post treatment for five days with Tamiflu, continue antibiotics empirically for pneumonia as per ID recommendations to complete the course. Home medications were resumed. Strict aspiration precautions were maintained. The patient was on G-tube feeding and was able to tolerate it. Health Therapist closely followed. Patient was gently hydrated initially. Electrolytes were closely monitored and corrected as needed. Urine studies were done. Nephrotoxics were avoided. Electrolytes stable prior to discharge. Neurologist closely followed. Per neurologist, the patient had extensive ischemic cerebrovascular disease with multiple strokes and quadriparesis, more on the left side and global aphasia as well as the acute encephalopathy secondary to underlying infection. Per neurologist, the patient had a pre- existing severe cerebrovascular disease with significant aphasia and quadriparesis. He developed signs of pneumonia and sepsis affecting level of his consciousness. He recommended to avoid sedative and continue IV fluids and antibiotics and obtain baseline CT of the brain, which was not done. GI closely followed the patient due to sudden decrease in hemoglobin and hematocrit: hemoglobin from 12.8 to 9.1 and hematocrit from 38.8 to 27.5. Anemia workup was initiated. Stool for OB was negative. Iron panel revealed anemia of chronic disease and iron deficiency anemia. The patient was on IV Venofer. Folate and B12 levels stable. Hemoglobin and hematocrit were closely monitored with a goal to keep hemoglobin above 7. No need for transfusion on this admission. Bowel regimen instituted. PPI added to the existing regimen. Wound care provided as per wound care nurse recommendation for right sacral pressure ulcer stage II, right heel DTI, and left heel DTI, all present on admission. Pain management was provided. Blood sugar was managed with sliding scale of insulin. The patient clinically improved and was stable for discharge back to senior living facility. Fever resolved, no leukocytosis. FINAL DIAGNOSES: 1. Possible sepsis. 2. Possible healthcare-associated pneumonia with Providencia and Pseudomonas. 3. Febrile illness. 4. Possible flu. 5. High aspiration risk. 6. Dysphagia, status post G-tube. 7. Advanced dementia. 8. Anemia, iron deficiency. 9. Diabetes mellitus. 10. Coronary artery disease. 11. BPH. 12. Extensive cerebrovascular ischemic disease with multiple strokes, quadriparesis, left more than right and global aphasia. 13. Arthritis. DISCHARGE MEDICATIONS: See medication reconciliation list; complete the course of IV antibiotics. DISCHARGE INSTRUCTIONS: The patient discharged to senior living facility. FOLLOWUP: Follow up with medical doctor at the facility. Segun Armando M.D. I have been assigned to dictate discharge summary on this account and I was not involved in the patient's management. Tiera Barajasyusra NAlfred DR: SRIRAM JOB#: [id number] CC: SUZANNE
== END 2018-01-09 17:30 | DRG 871 ==
LOC: EDBD 04:35 → EMR 05:01 → 2E 05:12 → EDBEDREQ 05:48 → 4W 01-06 16:00
DX: A41.9 Sepsis, unspecified organism (principal); G82.50 Quadriplegia, unspecified; J15.8 Pneumonia due to other specified bacteria; J11.08 Influenza due to unidentified influenza virus with specified pneumonia; L89.152 Pressure ulcer of sacral region, stage 2; J13 Pneumonia due to Streptococcus pneumoniae; N39.0 Urinary tract infection, site not specified; F03.90 Unspecified dementia, unspecified severity, without behavioral disturbance, psychotic disturbance, mood disturbance, and anxiety; E87.1 Hypo-osmolality and hyponatremia; Z43.1 Encounter for attention to gastrostomy; R13.10 Dysphagia, unspecified; R06.03 Acute respiratory distress; I69.965 Other paralytic syndrome following unspecified cerebrovascular disease, bilateral; I10 Essential (primary) hypertension; M19.90 Unspecified osteoarthritis, unspecified site; I25.10 Atherosclerotic heart disease of native coronary artery without angina pectoris; D63.8 Anemia in other chronic diseases classified elsewhere; D50.9 Iron deficiency anemia, unspecified; E11.9 Type 2 diabetes mellitus without complications; I69.365 Other paralytic syndrome following cerebral infarction, bilateral; I69.320 Aphasia following cerebral infarction; Z88.6 Allergy status to analgesic agent; R09.02 Hypoxemia; R62.7 Adult failure to thrive; E83.42 Hypomagnesemia; L89.620 Pressure ulcer of left heel, unstageable; L89.610 Pressure ulcer of right heel, unstageable
CPT/HCPCS: 36415; 71045; 80048; 80053; 81003; 82270; 82306; 82550; 82553; 82607; 82728; 82746; 83540; 83550; 83605; 83735; 83935; 84100; 84300; 84439; 84443; 84484; 85007; 85025; 85044; 85610; 85651; 85730; 86140; 86703; 86705; 86709; 86710; 86803; 87040; 87070; 87081; 87181; 87205; 87340; 93005; 94640; 94664; 94760; 99291; J8499

== ENCOUNTER 2019-08-15 20:16 | Inpatient (IN) | payer MEDICARE, OTHER ==
[~2019-08-15] VITALS: Ht 182.9 cm; Wt 62.8 kg
[2019-08-15 20:16] VITALS: BP 101/55
[~2019-08-15 20:16] MED LIST changes: +ACIDOPHILUS PR0.5 MG PO; +ATORVASTATIN CA20 MG ORAL; +BACLOFEN10 MG GT; +BISACODYL5 MG RC; +CEFEPIME-D2 GM/50 ML IVPB; +CHLORASEPTIC1 SPRAY ORAL; +CRESTOR20 MG GT; +DICLOFENAC SODI25 MG TP; +DOCUSATE SODIU100 MG GT; +GABAPENTIN100 MG GT; +IPRATROPIU0.2 MG/1 M HHN; +LANSOPRAZOLE30 MG GT; +MILK OF MA400 MG/51 GT; +MULTIVITAMINS1 EA13 GT; +OMEPRAZOLE20 M2 GT; +PLAVIX75 MG GT; +PROMETHAZINE-C118 M1 ORAL; +PROSCAR5 MG GT; +SENNA8.6 M2 GT; +TAMSULOSIN HCL0.4 MG GT; +THEOPHYLLINE A100 MG ORAL; +TYLENOL EXTRA500 MG GT; +VIBRAMYCIN100 MG GT
--- NOTE | 2019-08-15 20:16 | NUR ---
ED Nurse Note: pt arrived with ra 68 from SNF due to fever and tachycardia. bedside shae 103.7 rec. IV line established on right hand, intact and patent. discharged iv site from snf on left hand. lab specimen collected
--- NOTE | 2019-08-15 20:45 | NUR ---
ED Nurse Note: wound pics uploaded
--- NOTE | 2019-08-15 20:53 | Emergency Room Report ---
History of Present Illness General Chief Complaint: Fever Source: Patient Present Illness HPI Patient is a 79-year-old male brought in by EMS after increased fever from detention. Patient was noted to have some prior history of chronic debilitation. He began having fever up to 103 degrees. Prior history of BPH osteoarthritis muscle wasting G-tube dependence. Patient was noted to have pulsed with DNR status. Per patient's daughter laboratory testing and antibiotics are okay. Allergies: Coded Allergies: HYDROMORPHONE (Unverified Allergy, Unknown, 01/04/18) Patient History Past Medical History: see triage record Reviewed Nursing Documentation: PMH: Agreed; PSxH: Agreed Nursing Documentation-PMH Past Medical History: No History, Except For Hx Cardiac Problems: Yes Hx Hypertension: Yes Hx Diabetes: Yes Hx Cancer: No Hx Gastrointestinal Problems: No Hx Neurological Problems: No Hx Cerebrovascular Accident: Yes - Left upper extremity contracture, right leg contracture Hx Dementia: Yes Hx Weakness: Yes Hx Neurologic Surgery: Yes - c4-c5 infusion Review of Systems All Other Systems: negative except mentioned in HPI Physical Exam Vital Signs Date Time Temp Pulse Resp B/P (MAP) Pulse Ox O2 Delivery O2 Flow Rate FiO2 08/15/19 20:16 116 26 101/55 96 Room Air 08/15/19 20:18 100.2 Sp02 EP Interpretation: reviewed, normal General Appearance: alert, Chronically Ill Head: atraumatic Eyes: bilateral eye PERRL ENT: normal ENT inspection Neck: supple, limited range of motion Respiratory: normal inspection, lungs clear, normal breath sounds, no respiratory distress, no retraction, no wheezing Cardiovascular #1: regular rate, rhythm, no edema Gastrointestinal: normal inspection, normal bowel sounds, non tender, soft, no guarding, no hernia Genitourinary: no CVA tenderness Musculoskeletal: normal range of motion, decreased range of motion Neurologic: alert, responsive, other - aphasic Psychiatric: normal inspection, judgement/insight normal, mood/affect normal Skin: other - large fluctuance to right shoulder with some purulent drainage Procedures Incision and Drainage Incision and Drainage : Consent: Emergent I & D Procedure: betadine prep, sterile dressing applied Wound Length (cm): 3 Anesthesia: Lidocaine w/ Epi Volume Anesthetic (ccs): 6 Sling Applied?: Yes Patient Tolerated: Well Complications: None Progress Large amount of foul-smelling purulent material. Medical Decision Making Diagnostic Impression: Primary Impression: Fever Additional Impression: Abscess ER Course Patient presented for fever. Differential diagnosis included wasn't limited to pneumonia, urinary tract infection, drug fever, allergic reaction, sepsis, cholecystitis, among others. Because of complexity of patient's case laboratory tests and imaging studies were ordered. Patient was markedly contracted with indwelling Benavidez catheter. He has some contractures to his neck. He does not appear to be in any respiratory distress and oxygen saturation is 100% on room air. After discussion with the patient's daughter blood cultures and laboratory testing was ordered.Large skin abscess to the right shoulder was noted. This appears to be patient's source of fever. Patient's daughter was consented for incision and drainage. Incised and drained approximately 20- 30 mL's of foul-smelling purulent material with minimal bleeding. Dr. Abbasi was contacted for inpatient management due to complexity of medical condition after discussion with Dr. Segun Armando. Labs Test 08/15/19 20:45 White Blood Count 10.1 K/UL (4.8-10.8) Red Blood Count 3.33 M/UL (4.70-6.10) Hemoglobin 10.8 G/DL (14.2-18.0) Hematocrit 32.3 % (42.0-52.0) Mean Corpuscular Volume 97 FL (80-99) Mean Corpuscular Hemoglobin 32.5 PG (27.0-31.0) Mean Corpuscular Hemoglobin Concent 33.5 G/DL (32.0-36.0) Red Cell Distribution Width 11.5 % (11.6-14.8) Platelet Count 261 K/UL (150-450) Mean Platelet Volume 7.1 FL (6.5-10.1) Neutrophils (%) (Auto) % (45.0-75.0) Lymphocytes (%) (Auto) % (20.0-45.0) Monocytes (%) (Auto) % (1.0-10.0) Eosinophils (%) (Auto) % (0.0-3.0) Basophils (%) (Auto) % (0.0-2.0) Differential Total Cells Counted 100 Neutrophils % (Manual) 85 % (45-75) Lymphocytes % (Manual) 8 % (20-45) Monocytes % (Manual) 5 % (1-10) Eosinophils % (Manual) 2 % (0-3) Basophils % (Manual) 0 % (0-2) Band Neutrophils 0 % (0-8) Platelet Estimate Adequate Platelet Morphology Normal Red Blood Cell Morphology Normal Sodium Level 143 MMOL/L (136-145) Potassium Level 4.1 MMOL/L (3.5-5.1) Chloride Level 106 MMOL/L (98-107) Carbon Dioxide Level 28 MMOL/L (21-32) Anion Gap 9 mmol/L (5-15) Blood Urea Nitrogen 24 mg/dL (7-18) Creatinine 0.8 MG/DL (0.55-1.30) Estimat Glomerular Filtration Rate mL/min (>60) Glucose Level 172 MG/DL (74-106) Lactic Acid Level 2.40 mmol/L (0.4-2.0) Calcium Level 9.0 MG/DL (8.5-10.1) Total Bilirubin 0.6 MG/DL (0.2-1.0) Aspartate Amino Transf (AST/SGOT) 54 U/L (15-37) Alanine Aminotransferase (ALT/SGPT) 41 U/L (12-78) Alkaline Phosphatase 83 U/L (46-116) Total Creatine Kinase 616 U/L (26-308) Creatine Kinase MB < 0.5 NG/ML (0.0-3.6) Creatine Kinase MB Relative Index 0.0 Troponin I 0.022 ng/mL (0.000-0.056) Pro-B-Type Natriuretic Peptide 874 pg/mL (0-125) Total Protein 8.2 G/DL (6.4-8.2) Albumin 2.0 G/DL (3.4-5.0) Globulin 6.2 g/dL Albumin/Globulin Ratio 0.3 (1.0-2.7) EKG Diagnostic Results Rate: normal Rhythm: NSR ST Segments: no acute changes Last Vital Signs Date Time Temp Pulse Resp B/P (MAP) Pulse Ox O2 Delivery O2 Flow Rate FiO2 08/15/19 20:18 100.2 130 22 107/61 (76) 98 Room Air Status: unchanged Disposition: ADMITTED INPATIENT Condition: Stable Nicola Ocasio MD Aug 15, 2019 20:52
[2019-08-15 21:00] LABS: HEMATOCRIT 32.3 % (42.0-52.0); HEMOGLOBIN 10.8 G/DL (14.2-18.0); MEAN CORPUSCULAR VOLUME 97 FL (80-99); PLATELET COUNT 261 K/UL (150-450); RED BLOOD COUNT 3.33 M/UL (4.70-6.10); RED CELL DISTRIBUTION WIDTH 11.5 % (11.6-14.8); WHITE BLOOD COUNT 10.1 K/UL (4.8-10.8)
[2019-08-15 21:11] LABS: ANION GAP 9 mmol/L (5-15); BLOOD UREA NITROGEN 24 mg/dL (7-18); CARBON DIOXIDE 28 MMOL/L (21-32); CHLORIDE 106 MMOL/L (98-107); CREATININE 0.8 MG/DL (0.55-1.30); POTASSIUM 4.1 MMOL/L (3.5-5.1); SODIUM 143 MMOL/L (136-145)
[2019-08-15] MEDS ORDERED: Vancomycin 1.5 GM in NS 275 ML IVPB ONE (21:15)
[2019-08-15] MEDS ORDERED: Vancomycin 1.5gm/NS Premix 275 ML IVPB ONE (21:15)
[2019-08-15] MEDS ORDERED: Piperacillin/Tazobactam 3.375 GM in NS 110 ML IVPB ONE (21:15)
--- NOTE | 2019-08-15 21:15 | NUR ---
ED Nurse Note: VANCOMYCIN 1.5GM PREMIX NOT IN THE PYXIS, NOTIFIED ERMD AND CHANGED THE ORDER PER DR. MUKHERJEE.
[2019-08-15 21:25] LABS: ALANINE AMINOTRANSFERASE 41 U/L (12-78); ALBUMIN/GLOBULIN RATIO 0.3 (1.0-2.7); ALKALINE PHOSPHATASE 83 U/L (46-116); ASPARTATE AMINO TRANSFERASE 54 U/L (15-37); BILIRUBIN,TOTAL 0.6 MG/DL (0.2-1.0); CKMB < 0.5 NG/ML (0.0-3.6); CREATINE KINASE 616 U/L (26-308)
--- NOTE | 2019-08-15 21:58 | NUR ---
ED Nurse Note: lactic acid reflex sent to lab
[2019-08-15 22:21] VITALS: BP 128/70
[2019-08-15] MEDS ORDERED: Lidocaine 1% 10mg/ml/EPI 0.01mg/ml 20ml INJ ONE ×2 (22:21→23:00)
--- NOTE | 2019-08-15 22:22 | NUR ---
ED Nurse Note: ERMD at bedside performing incisional drainage of right shoulder abcess. consent signed per pt daughter
--- NOTE | 2019-08-15 22:25 | NUR ---
ED Nurse Note: Sweta(daughter) : [phone]
[2019-08-15 22:41] LABS: APPEARANCE,URINE SLIGHTLY CLOUDY; BILIRUBIN, URINE NEGATIVE (NEGATIVE); COLOR,URINE YELLOW; GLUCOSE, URINE (UA) NEGATIVE (NEGATIVE); KETONES,URINE NEGATIVE (NEGATIVE); LEUKOCYTE ESTERASE ,URINE 1+ (NEGATIVE); NITRITE,URINE NEGATIVE (NEGATIVE); PH,URINE 7 (4.5-8.0); PROTEIN,URINE 3+ (NEGATIVE); UROBILINOGEN,URINE 4 MG/DL (0.0-1.0)
--- NOTE | 2019-08-15 23:14 | NUR ---
ED Nurse Note: telephone report given to Trenton Ho for continuity of care.
--- NOTE | 2019-08-15 23:25 | NUR ---
NURSE NOTES: received patient from ER via gurney. Report received from SERGIO Reynoso, patient in stable condition, febrile 101.0, BP 100/57,RR 18 O2 sat 96, wound care pictures taken and uploaded,IV site on right hand g18, gtube patent, flushed, no belongings, dr. Abbasi called for admission orders, awaiting call back
--- NOTE | 2019-08-15 23:30 | NUR ---
TRANSFER TO FLOOR: Patient transferred to tele as ordered, per ermd. Report given to aubrey fritz pt has no belongings. Family informed of transfer.
[2019-08-16] VITALS: BP 100/57
[2019-08-16 04:00] VITALS: BP 106/53
[2019-08-16] MEDS ORDERED: Miralax 17gm pkt ORAL PRN (07:00)
[2019-08-16] MEDS ORDERED: Albuterol/Ipratropium 3ml neb HHN PRN (07:00)
[2019-08-16] MEDS ORDERED: Nitroglycerin Subl 0.4mg tab SL PRN (07:00)
[2019-08-16] MEDS ORDERED: Acetaminophen 650mg/20.3ml ORAL PRN (07:15)
[2019-08-16] MEDS ORDERED: Acetaminophen 650mg/20.3ml GT PRN (07:15)
--- NOTE | 2019-08-16 07:32 | NUR ---
HAND-OFF: Report given to SERGIO Lozano, patient in stable condition, plan of care endorsed.
--- NOTE | 2019-08-16 07:33 | NUR ---
NURSE NOTES: Received report from Maryann/RN, Patient is awake, lying semi-ocampo's, Breathing unlabored and even, no acute distress/SOB noted. AAO x1, Unable to answer questions. IV site patent, no bleeding or infiltration noted. Benavidez draining well to gravity. Encouraged to use call light when needed. Bed in low position and locked, Bed alarm engaged. Call light within reach. Will continue plan of care.
[2019-08-16 08:00] VITALS: BP 104/54
[2019-08-16] MEDS: Heparin 5000 units/ml inj SUBQ SCH ×2 (09:11→21:50)
--- NOTE | 2019-08-16 09:35 | Diagnostic Imaging Report ---
Indication: Reason For Exam: COUGH Technique: Single AP view of the chest. Comparison: Chest radiograph dated 01/06/2018 Findings: The cardiomediastinal silhouette is unchanged. Persistent interstitial edema with redemonstration of streaky bibasilar atelectasis/scarring. New right infrahilar airspace opacity. No pneumothorax. No pleural fluid. No acute osseous abnormality. IMPRESSION: New right infrahilar/basilar airspace opacity which may represent worsening atelectasis/edema or consolidation.
--- NOTE | 2019-08-16 09:38 | NUR ---
RADIOLOGY DEPT., CHEST X-RAY DONE.-P.DYE
--- NOTE | 2019-08-16 10:11 | NUR ---
CASE MANAGEMENT:REVIEW 79 YR OLD FEMALE BIBA FROM [facility] CC: FEVER 101 SI:FEVER. ABSCESS 103.7 127 26 101/55 96% ON RA BUN+24 LACTIC ACID+2.40 IS: 1L NS BOLUS IV VANCOMYCIN IV ZOSYN CXR BLOOD CX ; TO TELEMETRY
[2019-08-16] MEDS: Cefepime HCl 2 GM in D5W 110 ML IV SCH (10:23)
--- NOTE | 2019-08-16 10:39 | History and Physical ---
History of Present Illness General Date patient seen: Aug 16, 2019 Reason for Hospitalization: Fever Present Illness HPI 79-year-old male with hx of multiple CVA, Gtube feeding, bedbound, halfway resident brought in to ER by EMS with CC of fever from halfway. He began having fever up to 103 degrees. Patient was noted to be DNR. Pt was found to have a large skin abscess to the right shoulder. Patient's daughter was consented for incision and drainage. Incised and drained by ER physician and approximately 20- 30 mL's of foul-smelling purulent material with minimal bleeding. Allergies: Coded Allergies: HYDROMORPHONE (Unverified Allergy, Unknown, 01/04/18) Medication History Scheduled Amlodipine Besylate* (Amlodipine Besylate*), 5 MG PO DAILY, (Reported) Atorvastatin Calcium* (Atorvastatin Calcium*), 20 MG ORAL BEDTIME, (Reported) Baclofen* (Baclofen*), 5 MG GT THREE TIMES A DAY, (Reported) Bisacodyl* (Dulcolax*), 10 MG RC NEEDED, (Reported) Cefepime Hcl/D5w (Cefepime-Dextrose 2 Gm/50 Ml), 2 GM IVPB EVERY 12 HOURS, ( Reported) Cephalexin (Cephalexin), 500 MG GT QID Chloraseptic [place] (Sm Sore Throat [place]), 5 SPRAY ORAL EVERY 2 HOURS, (Reported ) Clobetasol Propionate/Emoll (Clobetasol Emollient 0.05% Crm), 15 GM TP BID, ( Reported) Clopidogrel Bisulfate* (Plavix*), 75 MG GT DAILY, (Reported) Clotrimazole (Clotrimazole), 1 GM TP TID Diclofenac Sod* (Voltaren*), 2 GM TP THREE TIMES A DAY, (Reported) Docusate Sodium* (Docusate Sodium*), 100 MG GT BID, (Reported) Doxycycline Hyclate* (Vibramycin*), 100 MG ORAL BID, (Reported) Doxycycline Hyclate* (Vibramycin*), 100 MG GT EVERY 12 HOURS, (Reported) Dronabinol* (Marinol*), 2.5 MG ORAL THREE TIMES A DAY, (Reported) Ergocalciferol (Vitamin D2)* (Vitamin D*), 50,000 UNIT ORAL ONCE A WEEK, ( Reported) Finasteride* (Proscar*), 5 MG GT DAILY, (Reported) Gabapentin* (Neurontin*), 600 MG PO Q8H, (Reported) Gabapentin* (Gabapentin*), 250 MG GT THREE TIMES A DAY, (Reported) Lansoprazole* (Lansoprazole*), 30 MG GT DAILY, (Reported) Losartan Potassium* (Cozaar*), 50 MG PO DAILY, (Reported) Magnesium Hydroxide* (Milk Of Magnesia*), 30 ML GT DAILY, (Reported) Multivitamin with Minerals (Multivitamins with Minerals), 1 TAB GT DAILY, ( Reported) Omeprazole (Omeprazole), 20 MG GT DAILY, (Reported) Rosuvastatin Calcium* (Crestor*), 20 MG GT BEDTIME, (Reported) Sennosides (Senna), 8.6 MG GT DAILY, (Reported) Tamsulosin Hcl (Tamsulosin Hcl*), 0.4 MG GT BEDTIME, (Reported) Theophylline (Theodur*), 100 MG ORAL Q12HR, (Reported) Trimethoprim/Sulfamethoxazole (Bactrim Ds Tablet), 1 TAB ORAL TWICE A DAY Trimethoprim/Sulfamethoxazole 160/800* (Bactrim Ds Tablet*), 1 TAB ORAL Q12H Scheduled PRN Acetaminophen With Codeine (T#3) (Tylenol #3 Tab*), 1 TAB ORAL Q4H PRN for For Pain, (Reported) Acetaminophen With Codeine (T#3) (Tylenol #3 Tab*), 1 TAB ORAL Q6H PRN for For Pain, (Reported) Acetaminophen* (Tylenol Extra Strength*), 325 MG GT Q6H PRN for Mild Pain/Temp > 100.5, (Reported) Codeine/Promethazine Hcl* (Promethazine-Codeine Syrup*), 5 ML ORAL Q4H PRN for For Cough, (Reported) Ipratropium [place] 0.5MG/2.5ML (Ipratropium [place] 0.5MG/2.5ML), 0.5 MG HHN Q6H PRN for Shortness of Breath, (Reported) Miscellaneous Medications Lactobacillus Acidophilus (Acidophilus Probiotic), 1 MG PO, (Reported) Vit B Complex 100 Cmb #3/Herbs (Balanced B-100 Tablet), 100 MG PO, (Reported) Patient History Healthcare decision maker Resuscitation status Advanced Directive on File Yes Past Medical/Surgical History Past Medical/Surgical History: (1) History of CVA (cerebrovascular accident) (2) Advanced dementia (3) G tube feedings (4) Failure to thrive (5) HTN (hypertension) Review of Systems All Other Systems: negative except mentioned in HPI Physical Exam General Appearance: WD/WN Lines, tubes and drains: peripheral HEENT: normocephalic, atraumatic Neck: non-tender, normal alignment Respiratory/Chest: chest wall non-tender, lungs clear Breasts: no masses Cardiovascular/Chest: normal peripheral pulses Abdomen: normal bowel sounds, non tender Genitourinary/Rectal: normal genital exam Extremities: normal range of motion Skin Exam: normal pigmentation Last 24 Hour Vital Signs Date Time Temp Pulse Resp B/P (MAP) Pulse Ox O2 Delivery O2 Flow Rate FiO2 08/16/19 09:12 80 104/54 08/16/19 08:00 98.1 80 18 104/54 (71) 100 08/16/19 04:58 97.7 08/16/19 04:00 109 08/16/19 04:00 101.6 98 18 106/53 (70) 99 08/16/19 00:00 114 08/16/19 00:00 101.0 109 18 100/57 (71) 98 08/15/19 23:35 Room Air 08/15/19 23:20 100.0 114 24 109/55 98 Room Air 08/15/19 22:21 100.2 127 24 128/70 98 Room Air 08/15/19 20:18 100.2 130 22 107/61 (76) 98 Room Air 08/15/19 20:16 116 26 08/15/19 20:16 116 26 101/55 96 Room Air Intake and Output 08/15/19 08/16/19 19:00 07:00 Intake Total 1385 ml Balance 1385 ml Intake IV Total 1385 ml # Voids 1 # Bowel Movements 1 Laboratory Tests Test 08/15/19 20:45 08/15/19 21:40 White Blood Count 10.1 K/UL (4.8-10.8) Red Blood Count 3.33 M/UL (4.70-6.10) L Hemoglobin 10.8 G/DL (14.2-18.0) L Hematocrit 32.3 % (42.0-52.0) L Mean Corpuscular Volume 97 FL (80-99) Mean Corpuscular Hemoglobin 32.5 PG (27.0-31.0) H Mean Corpuscular Hemoglobin Concent 33.5 G/DL (32.0-36.0) Red Cell Distribution Width 11.5 % (11.6-14.8) L Platelet Count 261 K/UL (150-450) Mean Platelet Volume 7.1 FL (6.5-10.1) Neutrophils (%) (Auto) % (45.0-75.0) Lymphocytes (%) (Auto) % (20.0-45.0) Monocytes (%) (Auto) % (1.0-10.0) Eosinophils (%) (Auto) % (0.0-3.0) Basophils (%) (Auto) % (0.0-2.0) Differential Total Cells Counted 100 Neutrophils % (Manual) 85 % (45-75) H Lymphocytes % (Manual) 8 % (20-45) L Monocytes % (Manual) 5 % (1-10) Eosinophils % (Manual) 2 % (0-3) Basophils % (Manual) 0 % (0-2) Band Neutrophils 0 % (0-8) Platelet Estimate Adequate Platelet Morphology Normal Red Blood Cell Morphology Normal Sodium Level 143 MMOL/L (136-145) Potassium Level 4.1 MMOL/L (3.5-5.1) Chloride Level 106 MMOL/L (98-107) Carbon Dioxide Level 28 MMOL/L (21-32) Anion Gap 9 mmol/L (5-15) Blood Urea Nitrogen 24 mg/dL (7-18) H Creatinine 0.8 MG/DL (0.55-1.30) Estimat Glomerular Filtration Rate mL/min (>60) Glucose Level 172 MG/DL (74-106) H Lactic Acid Level 2.40 mmol/L (0.4-2.0) H 2.10 mmol/L (0.66-2.22) Calcium Level 9.0 MG/DL (8.5-10.1) Total Bilirubin 0.6 MG/DL (0.2-1.0) Aspartate Amino Transf (AST/SGOT) 54 U/L (15-37) H Alanine Aminotransferase (ALT/SGPT) 41 U/L (12-78) Alkaline Phosphatase 83 U/L (46-116) Total Creatine Kinase 616 U/L (26-308) H Creatine Kinase MB < 0.5 NG/ML (0.0-3.6) Creatine Kinase MB Relative Index 0.0 Troponin I 0.022 ng/mL (0.000-0.056) Pro-B-Type Natriuretic Peptide 874 pg/mL (0-125) H Total Protein 8.2 G/DL (6.4-8.2) Albumin 2.0 G/DL (3.4-5.0) L Globulin 6.2 g/dL Albumin/Globulin Ratio 0.3 (1.0-2.7) L Urine Color Yellow Urine Appearance Slightly cloudy Urine pH 7 (4.5-8.0) Urine Specific [place] 1.005 (1.005-1.035) Urine Protein 3+ (NEGATIVE) H Urine Glucose (UA) Negative (NEGATIVE) Urine Ketones Negative (NEGATIVE) Urine Blood 1+ (NEGATIVE) H Urine Nitrite Negative (NEGATIVE) Urine Bilirubin Negative (NEGATIVE) Urine Urobilinogen 4 MG/DL (0.0-1.0) H Urine Leukocyte Esterase 1+ (NEGATIVE) H Urine RBC 2-4 /HPF (0 - 0) H Urine WBC 5-10 /HPF (0 - 0) H Urine Squamous Epithelial Cells Occasional /LPF Urine Bacteria Moderate /HPF (NONE) H Urine Mucus Moderate /LPF (NONE/OCC) H Height (Feet): 6 Height (Inches): 0.00 Weight (Pounds): 138 Medications Current Medications Medications (Trade) Dose Ordered Sig/Nelson Route PRN Reason Start Time Stop Time Status Last Admin Dose Admin Acetaminophen (Tylenol) 650 mg Q4H PRN GT Mild Pain/Temp > 100.5 08/16/19 07:15 09/15/19 03:44 Albuterol/ Ipratropium (Albuterol/ Ipratropium) 3 ml Q4H PRN HHN Shortness of Breath 08/16/19 07:00 08/21/19 06:59 Amlodipine Besylate (Norvasc) 5 mg DAILY GT 08/16/19 09:00 09/15/19 08:59 08/16/19 09:12 Baclofen (Lioresal) 5 mg THREE TIMES A DAY GT 08/16/19 09:00 09/15/19 08:59 08/16/19 09:10 Cefepime HCl 2 gm/ Dextrose 110 ml @ 220 mls/hr Q24H IV 08/16/19 10:00 08/23/19 09:59 08/16/19 10:23 Heparin Sodium (Porcine) (Heparin 5000 units/ml) 5,000 units EVERY 12 HOURS SUBQ 08/16/19 09:00 09/15/19 08:59 08/16/19 09:11 Nitroglycerin (Ntg) 0.4 mg Q5M PRN SL Prn Chest Pain 08/16/19 07:00 09/15/19 06:59 Ondansetron HCl (Zofran) 4 mg Q6H PRN IVP Nausea & Vomiting 08/16/19 07:00 09/15/19 06:59 Polyethylene Glycol (Miralax) 17 gm DAILYPRN PRN ORAL Constipation 08/16/19 07:00 09/15/19 06:59 Sodium Chloride 1,000 ml @ 150 mls/hr Q6H40M IV 08/16/19 06:57 09/15/19 06:56 08/16/19 09:00 Tamsulosin HCl (Flomax) 0.4 mg BEDTIME ORAL 08/16/19 21:00 09/15/19 20:59 Temazepam (Restoril) 15 mg HSPRN PRN ORAL Insomnia 08/16/19 07:00 08/23/19 06:59 Vancomycin HCl (Vanco rx to dose) 1 ea DAILY PRN MISC . 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 Sowmya Abbasi MD Aug 16, 2019 10:39
--- NOTE | 2019-08-16 11:33 | Diagnostic Imaging Report ---
Indication: Reason For Exam: DYSPNEA Technique: Single AP view of the chest. Comparison: Chest radiograph dated 08/15/2019 Findings: Examination limited due to patient's overlying hand shadow. The cardiomediastinal silhouette is unchanged. Redemonstration of bibasilar subsegmental atelectasis and right basilar airspace opacity. Stable interstitial edema. No pneumothorax. No pleural fluid. No acute osseous abnormality. IMPRESSION: No significant change from prior examination, with persistent interstitial edema, right basilar opacity, and bibasilar subsegmental atelectasis.
--- NOTE | 2019-08-16 11:35 | NUR ---
RD ASSESSMENT & RECOMMENDATIONS SEE CARE ACTIVITY FOR COMPLETE ASSESSMENT DAILY ESTIMATED NEEDS: Needs based on cardiac, wound healing, bed bound 63kg 28-33 kcals/kg 7325-1063 total kcals 1.25-1.5 g protein/kg 79-95 g total protein 25-30 mL/kg 7925-2896 total fluid mLs NUTRITION DIAGNOSIS: *Swallowing difficulty R/T dysphagia as evidenced by pt PEG dependent. (CURRENT TF: Jevity 1.2 @30ml) ENTERAL NUTRITION RECOMMENDATIONS: Osmolite 1.5 @50ml/hr x24 hrs + Prosource x1 daily to provide 1200ml, 1800kcal, 75g pro + 11g pro, 914ml free water * Rec TF change to Osm[place] 1.5 to better meet est needs. Start @30ml/hr, advance as tolerated 10ml/hr q4-6 hrs to goal. * Add Prosource 1pkt daily to meet est protein needs * HOB over 30 degrees/ water flush per MD. ADDITIONAL RECOMMENDATIONS: * Calibrated bedscale wt for accurate CBW * Wound healing: Phillip 1pkt BID, Vit C 250mg daily F/up w/ WC eval * Monitor BG, need for carb control formula (BG 172)
[2019-08-16] MEDS: Vancomycin 1 GM in D5W 275 ML IVPB SCH ×2 (11:41→23:37)
[2019-08-16 12:00] VITALS: BP 115/64
[2019-08-16 16:00] VITALS: BP 124/74
--- NOTE | 2019-08-16 17:00 | NUR ---
NURSE NOTES:WOUND CARE NOTES:Pt presented on admission with Abscess R scapula ,S/P I and D done in ER. Wound noted to be draining moderate amt of malodorous Haemopurulent exudate. Layered 4x4 gauzes noted to be saturated upon removal.Wound cleansed with Saline. Wound cleansed with Saline. Covered with layered [id number] and Optifoam drsg. Resolving pressure injury noted to L elbow. [place] granulation at base of wound. Edges slightly macerated. No odor noted. Small amt serous exudate noted. (L)1.3cm x (W)1cm. Hyperpigmentation from previous wound noted to sacrum. Few scattered areas within hyperpigmented area that are sheared with small amt sanguineous exudate. R heel boggy with non-blanchable erythema, an area that is maroon noted within base of wound. L heel boggy with non-blanching erythema. Tx.Plan: Apply Moisture Barrier Paste to sacrum. Cover with Optifoam drsg. Change every 3 days and prn. Apply [place] Skin Barrier to both heels. Cover each heel with Optifoam drsg. change every 7 days and prn. APM/MYRNA Mattress overlay. Reposition at least every 2hours or as tolerated. Off-load heels with pillow.
--- NOTE | 2019-08-16 19:30 | NUR ---
NURSE NOTES: Received patient from Marta RN. Patient in bed, awake, oriented x1. On room air, no signs of respiratory distress. No residual from Gtube, on Jevity 1.2 at 30ml/hr. Benavidez catheter intact, patent. Bed in low position, locked, bed alarm on, call light within reach.
--- NOTE | 2019-08-16 19:50 | NUR ---
HAND-OFF: Report given to Preston/RN, Patient in stable condition. Endorsed plan of care.
[2019-08-16 20:00] VITALS: BP 128/75
[2019-08-16] MEDS: Tamsulosin 0.4mg cap ORAL SCH (21:48)
[2019-08-17] VITALS: BP 127/77
[2019-08-17 04:00] VITALS: BP 129/79
[2019-08-17 07:21] LABS: BASOPHILS % (AUTO) 0.4 % (0.0-2.0); EOSINOPHILS % (AUTO) 6.4 % (0.0-3.0); HEMATOCRIT 28.9 % (42.0-52.0); HEMOGLOBIN 9.4 G/DL (14.2-18.0); MEAN CORPUSCULAR VOLUME 99 FL (80-99); MONOCYTES % (AUTO) 7.9 % (1.0-10.0); NEUTROPHILS % (AUTO) 68.3 % (45.0-75.0); PLATELET COUNT 274 K/UL (150-450); RED BLOOD COUNT 2.91 M/UL (4.70-6.10); RED CELL DISTRIBUTION WIDTH 12.7 % (11.6-14.8); WHITE BLOOD COUNT 6.3 K/UL (4.8-10.8)
--- NOTE | 2019-08-17 07:25 | NUR ---
NURSE NOTES: Received report from Preston/RN, Patient is asleep, lying semi-ocampo's, Breathing unlabored and even, no acute distress/SOB noted. AAO x1, Unable to answer questions. IV site patent, no bleeding or infiltration noted. G-tube feeding Jevity 1.2 running at 30cc/hr. Benavidez draining well to gravity. Encouraged to use call light when needed. Bed in low position and locked, Bed alarm engaged. Call light within reach. Will continue plan of care.
--- NOTE | 2019-08-17 07:35 | NUR ---
HAND-OFF: Report given to Marta RN. Plan of care endorsed.
[2019-08-17 07:47] LABS: ALANINE AMINOTRANSFERASE 40 U/L (12-78); ALBUMIN 1.7 G/DL (3.4-5.0); ALBUMIN/GLOBULIN RATIO 0.3 (1.0-2.7); ALKALINE PHOSPHATASE 69 U/L (46-116); ANION GAP 7 mmol/L (5-15); ASPARTATE AMINO TRANSFERASE 45 U/L (15-37); BILIRUBIN,TOTAL 0.5 MG/DL (0.2-1.0); BLOOD UREA NITROGEN 11 mg/dL (7-18); CALCIUM 8.6 MG/DL (8.5-10.1); CARBON DIOXIDE 25 MMOL/L (21-32); CHLORIDE 105 MMOL/L (98-107); CREATININE 0.6 MG/DL (0.55-1.30); POTASSIUM 3.1 MMOL/L (3.5-5.1); SODIUM 137 MMOL/L (136-145)
[2019-08-17 08:00] VITALS: BP 133/79
[2019-08-17] MEDS: Cefepime HCl 2 GM in D5W 110 ML IV SCH (09:10)
[2019-08-17] MEDS: Heparin 5000 units/ml inj SUBQ SCH ×2 (09:11→20:55)
--- NOTE | 2019-08-17 09:25 | NUR ---
RD ASSESSMENT & RECOMMENDATIONS SEE CARE ACTIVITY FOR COMPLETE ASSESSMENT DAILY ESTIMATED NEEDS: Needs based on cardiac, wound healing, bed bound 63kg 28-33 kcals/kg 9460-6262 total kcals 1.25-1.5 g protein/kg 79-95 g total protein 25-30 mL/kg 2159-4960 total fluid mLs NUTRITION DIAGNOSIS: * Swallowing difficulty R/T dysphagia as evidenced by pt PEG dependent. * Increased Kcal and pro needs r/t wound healing as evidenced by pt w/ R scapula abscess (s/p I&D), resolving pressure injury L elbow, and partial thickness wound L heel. CURRENT TF:Jevity 1.2 @30ml ENTERAL NUTRITION RECOMMENDATIONS: Osmolite 1.5 @50ml/hr x24 hrs + Prosource x1 daily to provide 1200ml, 1800kcal, 75g pro + 11g pro, 914ml free water * Rec TF change to Osmolite 1.5 to better meet est needs. Start @30ml/hr , advance as tolerated 10ml/hr q4-6 hrs to goal. * Add Prosource 1pkt daily to meet est protein needs * HOB over 30 degrees/ water flush per MD. ----- ADDITIONAL RECOMMENDATIONS: * Calibrated bedscale wt for accurate CBW * Wound healing: Phillip 1pkt BID, Vit C 250mg daily F/up w/ WC eval - noted * Monitor BG, need for carb control formula (BG 172)
--- NOTE | 2019-08-17 10:35 | NUR ---
NURSE NOTES: Notified Dr. Abbasi regarding potassium 3.1. No new order at this time.
--- NOTE | 2019-08-17 11:00 | NUR ---
NURSE NOTES: Notified Dr. Zaragoza regarding Positive for Gram + cocci cluster. No new order at this time.
--- NOTE | 2019-08-17 11:19 | Pulmonology Progress Note ---
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 Subjective ROS Limited/Unobtainable: No Constitutional: Reports: no symptoms HEENT: Repors: no symptoms Allergies: Coded Allergies: HYDROMORPHONE (Unverified Allergy, Unknown, 01/04/18) Objective Last 24 Hour Vital Signs Date Time Temp Pulse Resp B/P (MAP) Pulse Ox O2 Delivery O2 Flow Rate FiO2 08/17/19 09:10 86 133/79 08/17/19 09:00 Room Air 08/17/19 08:00 98.6 86 20 133/79 (97) 98 08/17/19 08:00 94 08/17/19 04:00 82 08/17/19 04:00 99.0 99 15 129/79 (96) 93 08/17/19 00:00 103 08/17/19 00:00 99.1 100 16 127/77 (94) 92 08/16/19 21:00 Room Air 08/16/19 20:00 99.2 100 16 128/75 (92) 97 08/16/19 20:00 91 08/16/19 16:00 96.8 90 18 124/74 (91) 93 08/16/19 16:00 81 08/16/19 12:00 96.4 88 20 115/64 (81) 98 08/16/19 12:00 97 Intake and Output 08/16/19 08/17/19 19:00 07:00 Intake Total 130 ml Output Total 700 ml 1300 ml Balance -570 ml -1300 ml Intake Free Water 100 ml Tube Feeding 30 ml Output Urine Total 700 ml 1300 ml # Bowel Movements 1 1 General Appearance: WD/WN HEENT: normocephalic Respiratory/Chest: chest wall non-tender, lungs clear Cardiovascular: normal peripheral pulses, normal rate Abdomen: normal bowel sounds, soft, non tender Genitourinary: normal external genitalia Extremities: no cyanosis Skin: no lesions Neurologic/Psychiatric: admission nurse coordinator II-XII grossly normal Microbiology Date/Time Source Procedure Growth Status 08/15/19 20:30 Blood Blood Culture - Preliminary Resulted 08/15/19 20:15 Blood Blood Culture - Preliminary NO GROWTH AFTER 24 HOURS Resulted 08/15/19 21:40 Urine,Clean Catch Urine Culture - Preliminary NO GROWTH Resulted Laboratory Tests 08/17/19 05:36: White Blood Count 6.3, Red Blood Count 2.91L, Hemoglobin 9.4L, Hematocrit 28.9L , Mean Corpuscular Volume 99, Mean Corpuscular Hemoglobin 32.3H, Mean Corpuscular Hemoglobin Concent 32.6, Red Cell Distribution Width 12.7, Platelet Count 274, Mean Platelet Volume 7.1, Neutrophils (%) (Auto) 68.3, Lymphocytes (% ) (Auto) 17.0L, Monocytes (%) (Auto) 7.9, Eosinophils (%) (Auto) 6.4H, Basophils (%) (Auto) 0.4, Sodium Level 137, Potassium Level 3.1L, Chloride Level 105, Carbon Dioxide Level 25, Anion Gap 7, Blood Urea Nitrogen 11, Creatinine 0.6, Estimat Glomerular Filtration Rate , Glucose Level 99, Calcium Level 8.6, Total Bilirubin 0.5, Aspartate Amino Transf (AST/SGOT) 45H, Alanine Aminotransferase (ALT/SGPT) 40, Alkaline Phosphatase 69, Total Protein 7.1, Albumin 1.7L, Globulin 5.4, Albumin/Globulin Ratio 0.3L 08/17/19 09:52: Vancomycin Level [place] 10.9 Current Medications Medications (Trade) Dose Ordered Sig/Nelson Route PRN Reason Start Time Stop Time Status Last Admin Dose Admin Acetaminophen (Tylenol) 650 mg Q4H PRN GT Mild Pain/Temp > 100.5 08/16/19 07:15 09/15/19 03:44 Albuterol/ Ipratropium (Albuterol/ Ipratropium) 3 ml Q4H PRN HHN Shortness of Breath 08/16/19 07:00 08/21/19 06:59 Amlodipine Besylate (Norvasc) 5 mg DAILY GT 08/16/19 09:00 09/15/19 08:59 08/17/19 09:10 Baclofen (Lioresal) 5 mg THREE TIMES A DAY GT 08/16/19 09:00 09/15/19 08:59 08/17/19 09:10 Cefepime HCl 2 gm/ Dextrose 110 ml @ 220 mls/hr Q24H IV 08/16/19 10:00 08/23/19 09:59 08/17/19 09:10 Heparin Sodium (Porcine) (Heparin 5000 units/ml) 5,000 units EVERY 12 HOURS SUBQ 08/16/19 09:00 09/15/19 08:59 08/17/19 09:11 Nitroglycerin (Ntg) 0.4 mg Q5M PRN SL Prn Chest Pain 08/16/19 07:00 09/15/19 06:59 Ondansetron HCl (Zofran) 4 mg Q6H PRN IVP Nausea & Vomiting 08/16/19 07:00 09/15/19 06:59 Polyethylene Glycol (Miralax) 17 gm DAILYPRN PRN ORAL Constipation 08/16/19 07:00 09/15/19 06:59 Sodium Chloride 1,000 ml @ 150 mls/hr Q6H40M IV 08/16/19 06:57 09/15/19 06:56 08/17/19 09:10 Tamsulosin HCl (Flomax) 0.4 mg BEDTIME ORAL 08/16/19 21:00 09/15/19 20:59 08/16/19 21:48 Temazepam (Restoril) 15 mg HSPRN PRN ORAL Insomnia 08/16/19 07:00 08/23/19 06:59 Vancomycin HCl (Vanco rx to dose) 1 ea DAILY PRN MISC . 08/16/19 07:15 09/15/19 07:14 Vancomycin HCl 1 gm/Dextrose 275 ml @ 183.3 mls/ hr Q12HR@1100,2300 IVPB 08/16/19 11:00 08/21/19 10:59 08/16/19 23:37 Sowmya Abbasi MD Aug 17, 2019 11:19
--- NOTE | 2019-08-17 11:38 | Consultation ---
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 Patient was noted to have large skin abscess on R shoulder. Underwent I+D on ED with removal of 20-30 mL of foul smelling purulent material Allergies: Coded Allergies: HYDROMORPHONE (Unverified Allergy, Unknown, 01/04/18) Medication History Scheduled Amlodipine Besylate* (Amlodipine Besylate*), 5 MG PO DAILY, (Reported) Atorvastatin Calcium* (Atorvastatin Calcium*), 20 MG ORAL BEDTIME, (Reported) Baclofen* (Baclofen*), 5 MG GT THREE TIMES A DAY, (Reported) Bisacodyl* (Dulcolax*), 10 MG RC NEEDED, (Reported) Cefepime Hcl/D5w (Cefepime-Dextrose 2 Gm/50 Ml), 2 GM IVPB EVERY 12 HOURS, ( Reported) Cephalexin (Cephalexin), 500 MG GT QID Chloraseptic [place] (Sm Sore Throat [place]), 5 SPRAY ORAL EVERY 2 HOURS, (Reported ) Clobetasol Propionate/Emoll (Clobetasol Emollient 0.05% Crm), 15 GM TP BID, ( Reported) Clopidogrel Bisulfate* (Plavix*), 75 MG GT DAILY, (Reported) Clotrimazole (Clotrimazole), 1 GM TP TID Diclofenac Sod* (Voltaren*), 2 GM TP THREE TIMES A DAY, (Reported) Docusate Sodium* (Docusate Sodium*), 100 MG GT BID, (Reported) Doxycycline Hyclate* (Vibramycin*), 100 MG ORAL BID, (Reported) Doxycycline Hyclate* (Vibramycin*), 100 MG GT EVERY 12 HOURS, (Reported) Dronabinol* (Marinol*), 2.5 MG ORAL THREE TIMES A DAY, (Reported) Ergocalciferol (Vitamin D2)* (Vitamin D*), 50,000 UNIT ORAL ONCE A WEEK, ( Reported) Finasteride* (Proscar*), 5 MG GT DAILY, (Reported) Gabapentin* (Neurontin*), 600 MG PO Q8H, (Reported) Gabapentin* (Gabapentin*), 250 MG GT THREE TIMES A DAY, (Reported) Lansoprazole* (Lansoprazole*), 30 MG GT DAILY, (Reported) Losartan Potassium* (Cozaar*), 50 MG PO DAILY, (Reported) Magnesium Hydroxide* (Milk Of Magnesia*), 30 ML GT DAILY, (Reported) Multivitamin with Minerals (Multivitamins with Minerals), 1 TAB GT DAILY, ( Reported) Omeprazole (Omeprazole), 20 MG GT DAILY, (Reported) Rosuvastatin Calcium* (Crestor*), 20 MG GT BEDTIME, (Reported) Sennosides (Senna), 8.6 MG GT DAILY, (Reported) Tamsulosin Hcl (Tamsulosin Hcl*), 0.4 MG GT BEDTIME, (Reported) Theophylline (Theodur*), 100 MG ORAL Q12HR, (Reported) Trimethoprim/Sulfamethoxazole (Bactrim Ds Tablet), 1 TAB ORAL TWICE A DAY Trimethoprim/Sulfamethoxazole 160/800* (Bactrim Ds Tablet*), 1 TAB ORAL Q12H Scheduled PRN Acetaminophen With Codeine (T#3) (Tylenol #3 Tab*), 1 TAB ORAL Q4H PRN for For Pain, (Reported) Acetaminophen With Codeine (T#3) (Tylenol #3 Tab*), 1 TAB ORAL Q6H PRN for For Pain, (Reported) Acetaminophen* (Tylenol Extra Strength*), 325 MG GT Q6H PRN for Mild Pain/Temp > 100.5, (Reported) Codeine/Promethazine Hcl* (Promethazine-Codeine Syrup*), 5 ML ORAL Q4H PRN for For Cough, (Reported) Ipratropium [place] 0.5MG/2.5ML (Ipratropium [place] 0.5MG/2.5ML), 0.5 MG HHN Q6H PRN for Shortness of Breath, (Reported) Miscellaneous Medications Lactobacillus Acidophilus (Acidophilus Probiotic), 1 MG PO, (Reported) Vit B Complex 100 Cmb #3/Herbs (Balanced B-100 Tablet), 100 MG PO, (Reported) Patient History Healthcare decision maker Resuscitation status Advanced Directive on File Yes Patient History Narrative Pmhx: as above Shx: reviewed Fhx: non contributory Physical Exam Physical Exam Narrative General Appearance: WD/WN Lines, tubes and drains: peripheral HEENT: normocephalic, atraumatic Neck: non-tender, normal alignment Respiratory/Chest: chest wall non-tender, lungs clear Cardiovascular/Chest: normal peripheral pulses Abdomen: normal bowel sounds, non tender Genitourinary/Rectal: normal genital exam Extremities: normal range of motion Skin Exam: R shoulder abscess s/p i+D- wound with some puruelent discharge Last 24 Hour Vital Signs Date Time Temp Pulse Resp B/P (MAP) Pulse Ox O2 Delivery O2 Flow Rate FiO2 08/17/19 09:10 86 133/79 08/17/19 09:00 Room Air 08/17/19 08:00 98.6 86 20 133/79 (97) 98 08/17/19 08:00 94 08/17/19 04:00 82 08/17/19 04:00 99.0 99 15 129/79 (96) 93 08/17/19 00:00 103 08/17/19 00:00 99.1 100 16 127/77 (94) 92 08/16/19 21:00 Room Air 08/16/19 20:00 99.2 100 16 128/75 (92) 97 08/16/19 20:00 91 08/16/19 16:00 96.8 90 18 124/74 (91) 93 08/16/19 16:00 81 08/16/19 12:00 96.4 88 20 115/64 (81) 98 08/16/19 12:00 97 Intake and Output 08/16/19 08/17/19 19:00 07:00 Intake Total 130 ml Output Total 700 ml 1300 ml Balance -570 ml -1300 ml Intake Free Water 100 ml Tube Feeding 30 ml Output Urine Total 700 ml 1300 ml # Bowel Movements 1 1 Laboratory Tests Test 08/17/19 05:36 08/17/19 09:52 White Blood Count 6.3 K/UL (4.8-10.8) Red Blood Count 2.91 M/UL (4.70-6.10) L Hemoglobin 9.4 G/DL (14.2-18.0) L Hematocrit 28.9 % (42.0-52.0) L Mean Corpuscular Volume 99 FL (80-99) Mean Corpuscular Hemoglobin 32.3 PG (27.0-31.0) H Mean Corpuscular Hemoglobin Concent 32.6 G/DL (32.0-36.0) Red Cell Distribution Width 12.7 % (11.6-14.8) Platelet Count 274 K/UL (150-450) Mean Platelet Volume 7.1 FL (6.5-10.1) Neutrophils (%) (Auto) 68.3 % (45.0-75.0) Lymphocytes (%) (Auto) 17.0 % (20.0-45.0) L Monocytes (%) (Auto) 7.9 % (1.0-10.0) Eosinophils (%) (Auto) 6.4 % (0.0-3.0) H Basophils (%) (Auto) 0.4 % (0.0-2.0) Sodium Level 137 MMOL/L (136-145) Potassium Level 3.1 MMOL/L (3.5-5.1) L Chloride Level 105 MMOL/L (98-107) Carbon Dioxide Level 25 MMOL/L (21-32) Anion Gap 7 mmol/L (5-15) Blood Urea Nitrogen 11 mg/dL (7-18) Creatinine 0.6 MG/DL (0.55-1.30) Estimat Glomerular Filtration Rate mL/min (>60) Glucose Level 99 MG/DL (74-106) Calcium Level 8.6 MG/DL (8.5-10.1) Total Bilirubin 0.5 MG/DL (0.2-1.0) Aspartate Amino Transf (AST/SGOT) 45 U/L (15-37) H Alanine Aminotransferase (ALT/SGPT) 40 U/L (12-78) Alkaline Phosphatase 69 U/L (46-116) Total Protein 7.1 G/DL (6.4-8.2) Albumin 1.7 G/DL (3.4-5.0) L Globulin 5.4 g/dL Albumin/Globulin Ratio 0.3 (1.0-2.7) L Vancomycin Level Trough 10.9 ug/mL (5.0-12.0) Height (Feet): 6 Height (Inches): 0.00 Weight (Pounds): 138 Medications Current Medications Medications (Trade) Dose Ordered Sig/Nelson Route PRN Reason Start Time Stop Time Status Last Admin Dose Admin Acetaminophen (Tylenol) 650 mg Q4H PRN GT Mild Pain/Temp > 100.5 08/16/19 07:15 09/15/19 03:44 Albuterol/ Ipratropium (Albuterol/ Ipratropium) 3 ml Q4H PRN HHN Shortness of Breath 08/16/19 07:00 08/21/19 06:59 Amlodipine Besylate (Norvasc) 5 mg DAILY GT 08/16/19 09:00 09/15/19 08:59 08/17/19 09:10 Baclofen (Lioresal) 5 mg THREE TIMES A DAY GT 08/16/19 09:00 09/15/19 08:59 08/17/19 09:10 Cefepime HCl 2 gm/ Dextrose 110 ml @ 220 mls/hr Q24H IV 08/16/19 10:00 08/23/19 09:59 08/17/19 09:10 Heparin Sodium (Porcine) (Heparin 5000 units/ml) 5,000 units EVERY 12 HOURS SUBQ 08/16/19 09:00 09/15/19 08:59 08/17/19 09:11 Nitroglycerin (Ntg) 0.4 mg Q5M PRN SL Prn Chest Pain 08/16/19 07:00 09/15/19 06:59 Ondansetron HCl (Zofran) 4 mg Q6H PRN IVP Nausea & Vomiting 08/16/19 07:00 09/15/19 06:59 Polyethylene Glycol (Miralax) 17 gm DAILYPRN PRN ORAL Constipation 08/16/19 07:00 09/15/19 06:59 Sodium Chloride 1,000 ml @ 150 mls/hr Q6H40M IV 08/16/19 06:57 09/15/19 06:56 08/17/19 09:10 Tamsulosin HCl (Flomax) 0.4 mg BEDTIME ORAL 08/16/19 21:00 09/15/19 20:59 08/16/19 21:48 Temazepam (Restoril) 15 mg HSPRN PRN ORAL Insomnia 08/16/19 07:00 08/23/19 06:59 Vancomycin HCl (Vanco rx to dose) 1 ea DAILY PRN MISC . 08/16/19 07:15 09/15/19 07:14 Vancomycin HCl 1 gm/Dextrose 275 ml @ 183.3 mls/ hr Q12HR@1100,2300 IVPB 08/16/19 11:00 08/21/19 10:59 08/16/19 23:37 Assessment/Plan Assessment/Plan: Abx: IV Vancomycin 08/15- Cefepime 08/16- Zosyn x1 08/15 Assessment: Sepsis R shoulder abscess -08/15 SP I+D (on ED)-removal of 20-30 mL of foul smelling purulent material ; cx were not sent Gram positive bacteremia -08/15 Bcx 1/4 GPC clusters; 08/16 Bcx p Probable PNA -CXR: New right infrahilar/basilar airspace opacity which may represent worsening atelectasis/edema or consolidation. 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 Will continue to follow along with you. Avril Zaragoza M.D. Aug 17, 2019 11:38
[2019-08-17] MEDS: Vancomycin 1 GM in D5W 275 ML IVPB SCH (11:45)
[2019-08-17 12:00] VITALS: BP 119/67
[2019-08-17 16:00] VITALS: BP 134/78
[2019-08-17 20:00] VITALS: BP 119/60
[2019-08-17] MEDS: Tamsulosin 0.4mg cap ORAL SCH (20:42)
[2019-08-17] MEDS ORDERED: Vancomycin 1.25gm/NS Premix q24h IVPB SCH (21:00)
--- NOTE | 2019-08-17 23:13 | NUR ---
HAND-OFF: Report given to Lydia/RN, Patient in stable condition. Endorsed plan of care.
--- NOTE | 2019-08-17 23:20 | NUR ---
NURSE NOTES: Received pt from SERGIO Lozano. Pt awake but nonverbal. Bed in lowest position. Call light within reach. Will transfer pt to 421-1. Will continue to monitor.
--- NOTE | 2019-08-17 23:30 | NUR ---
Nurse notes Pt transferred from report received by Lydia HILL. Pt awake alert to name. Pt lying in bed bilateral extremities contracted. position for comfort Pt on room air no acute distress noted at this time. no c/o of pain IV to R hand running 1/2 NS @ 150ML/HR .Benavidez patent to gravitation GT running Osmolite 1.5 @ 50ml/hr. Pt has all belongings at bedside. bed in lowest position call light in reach will continue to monitor condition.
[2019-08-18] VITALS: BP 119/63
[2019-08-18] MEDS ORDERED: Nitroglycerin Subl 0.4mg tab SL PRN
--- NOTE | 2019-08-18 00:05 | NUR ---
TRANSFER TO FLOOR: Patient transferred to [facility], per transfer order. Report given to RN. Belongings and medications remained with pt. Family and or S/O informed of transfer.
[2019-08-18] MEDS ORDERED: Albuterol/Ipratropium 3ml neb HHN PRN (03:00)
[2019-08-18] MEDS ORDERED: Acetaminophen 650mg/20.3ml GT PRN (03:15)
[2019-08-18 04:00] VITALS: BP 121/70
[2019-08-18] MEDS ORDERED: Miralax 17gm pkt ORAL PRN (07:00)
[2019-08-18 08:00] VITALS: BP 135/72
--- NOTE | 2019-08-18 08:29 | NUR ---
NURSE NOTES: Patient is awake. No s/s of distress. HOB is elevated. Tube feeding is running at goal rate 30ml/hr. Patient has POLST that indicated that patient is DNR and is signed by daughter. Dr. Abbasi notified. New order received. Will continue to monitor.
[2019-08-18] MEDS: Cefepime HCl 2 GM in D5W 110 ML IV SCH (09:33)
[2019-08-18] MEDS: Heparin 5000 units/ml inj SUBQ SCH ×2 (09:34→20:16)
[2019-08-18] MEDS: Vancomycin 1.25gm/NS Premix 275 ML IVPB SCH ×2 (10:18→20:15)
--- NOTE | 2019-08-18 11:04 | NUR ---
RD ASSESSMENT & RECOMMENDATIONS SEE CARE ACTIVITY FOR COMPLETE ASSESSMENT DAILY ESTIMATED NEEDS: Needs based on cardiac, wound healing, bed bound 63kg 28-33 kcals/kg 2492-3872 total kcals 1.25-1.5 g protein/kg 79-95 g total protein 25-30 mL/kg 0551-1413 total fluid mLs NUTRITION DIAGNOSIS: * Swallowing difficulty R/T dysphagia as evidenced by pt PEG dependent. * Increased Kcal and pro needs r/t wound healing as evidenced by pt w/ R scapula abscess (s/p I&D), resolving pressure injury L elbow, and partial thickness wound L heel. CURRENT TF:Jevity 1.2 @30ml ENTERAL NUTRITION RECOMMENDATIONS: Osmolite 1.5 @50ml/hr x24 hrs + Prosource x1 daily to provide 1200ml, 1800kcal, 75g pro + 11g pro, 914ml free water * Rec TF change to Osmolite 1.5 to better meet est needs. Start @30ml/hr , advance as tolerated 10ml/hr q4-6 hrs to goal. * Add Prosource 1pkt daily to meet est protein needs * HOB over 30 degrees/ water flush per MD. ADDITIONAL RECOMMENDATIONS: * Calibrated bedscale wt for accurate CBW * Wound healing: Phillip 1pkt BID, Vit C 250mg daily * Monitor BG, need for carb control formula (BG 172) .
--- NOTE | 2019-08-18 11:51 | NUR ---
NURSE NOTES: Data Systems Analyst recommends tube feeding Osmolite 1.5 @ 50 ml/hr plus prosource x1. Dr. Abbasi notified. New order received.
[2019-08-18 12:00] VITALS: BP 119/65
--- NOTE | 2019-08-18 13:00 | Pulmonology Progress Note ---
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 dc planning soon Subjective ROS Limited/Unobtainable: Yes Constitutional: Reports: no symptoms HEENT: Repors: no symptoms Allergies: Coded Allergies: HYDROMORPHONE (Unverified Allergy, Unknown, 01/04/18) Objective Last 24 Hour Vital Signs Date Time Temp Pulse Resp B/P (MAP) Pulse Ox O2 Delivery O2 Flow Rate FiO2 08/18/19 12:00 98.1 91 19 119/65 (83) 98 08/18/19 09:33 97 135/72 08/18/19 08:45 Room Air 08/18/19 08:00 97.9 97 20 135/72 (93) 98 08/18/19 06:47 87 16 98 Room Air 21 08/18/19 04:00 98.3 93 18 121/70 (87) 08/18/19 00:00 98.6 95 17 119/63 (81) 95 08/17/19 21:00 Room Air 08/17/19 20:00 75 08/17/19 20:00 97.8 75 17 119/60 (79) 93 08/17/19 16:00 82 08/17/19 16:00 98.4 83 20 134/78 (96) 97 Intake and Output 08/17/19 08/18/19 19:00 07:00 Intake Total 410 ml Output Total 1600 ml 1900 ml Balance -1600 ml -1490 ml Intake Free Water 200 ml Tube Feeding 210 ml Output Urine Total 1600 ml 1900 ml # Voids 2 # Bowel Movements 1 3 HEENT: normocephalic, atraumatic Respiratory/Chest: chest wall non-tender, lungs clear Cardiovascular: normal peripheral pulses, normal rate Abdomen: normal bowel sounds, no organomegaly Extremities: no cyanosis Skin: no rash Neurologic/Psychiatric: rcis II-XII grossly normal Musculoskeletal: normal muscle bulk Microbiology Date/Time Source Procedure Growth Status 08/16/19 07:15 Blood Blood Culture - Preliminary NO GROWTH AFTER 24 HOURS Resulted 08/16/19 07:10 Blood Blood Culture - Preliminary NO GROWTH AFTER 24 HOURS Resulted 08/15/19 20:30 Blood Blood Culture - Preliminary Gram Positive Cocci Resulted 08/15/19 20:15 Blood Blood Culture - Preliminary Resulted 08/15/19 20:30 Nasal Nares MRSA Culture - Final NO METHICILLIN RESISTANT STAPH AUREUS... Complete 08/15/19 21:40 Urine,Clean Catch Urine Culture - Preliminary NO GROWTH AFTER 24 HOURS Resulted 08/15/19 20:30 Rectum VRE Culture - Final NO VANCOMYCIN RESISTANT ENTEROCOCCUS ... Complete Current Medications Medications (Trade) Dose Ordered Sig/Nelson Route PRN Reason Start Time Stop Time Status Last Admin Dose Admin Acetaminophen (Tylenol) 650 mg Q4H PRN GT Mild Pain/Temp > 100.5 08/18/19 03:15 09/15/19 03:44 Albuterol/ Ipratropium (Albuterol/ Ipratropium) 3 ml Q4H PRN HHN Shortness of Breath 08/18/19 03:00 08/21/19 06:59 Amlodipine Besylate (Norvasc) 5 mg DAILY GT 08/18/19 09:00 09/15/19 08:59 08/18/19 09:33 Baclofen (Lioresal) 5 mg THREE TIMES A DAY GT 08/18/19 09:00 09/15/19 08:59 08/18/19 09:33 Cefepime HCl 2 gm/ Dextrose 110 ml @ 220 mls/hr Q24H IV 08/18/19 10:00 08/23/19 09:59 08/18/19 09:33 Heparin Sodium (Porcine) (Heparin 5000 units/ml) 5,000 units EVERY 12 HOURS SUBQ 08/18/19 09:00 09/15/19 08:59 08/18/19 09:34 Nitroglycerin (Ntg) 0.4 mg Q5M PRN SL Prn Chest Pain 08/18/19 00:00 09/15/19 06:59 Ondansetron HCl (Zofran) 4 mg Q6H PRN IVP Nausea & Vomiting 08/18/19 01:00 09/15/19 06:59 Polyethylene Glycol (Miralax) 17 gm DAILYPRN PRN ORAL Constipation 08/18/19 07:00 09/15/19 06:59 Sodium Chloride 1,000 ml @ 150 mls/hr Q6H40M IV 08/18/19 00:00 09/15/19 06:56 08/18/19 06:40 Tamsulosin HCl (Flomax) 0.4 mg BEDTIME ORAL 08/18/19 21:00 09/15/19 20:59 Temazepam (Restoril) 15 mg HSPRN PRN ORAL Insomnia 08/18/19 07:00 08/23/19 06:59 Vancomycin HCl (Vanco rx to dose) 1 ea DAILY PRN MISC . 08/18/19 09:00 09/15/19 07:14 Vancomycin/Sodium Chloride 275 ml @ 183.333 mls/hr Q12HR IVPB 08/18/19 09:00 08/22/19 20:59 08/18/19 10:18 Sowmya Abbasi MD Aug 18, 2019 13:00
--- NOTE | 2019-08-18 15:18 | Infectious Diseases Prog Note ---
Assessment/Plan Assessment/Plan Assessment: Sepsis R shoulder abscess -08/15 SP I+D (on ED)-removal of 20-30 mL of foul smelling purulent material ; cx were not sent Gram positive bacteremia -08/15 Bcx 2/4 GPC clusters; 08/16 Bcx NTD Probable PNA -CXR: New right infrahilar/basilar airspace opacity which may represent worsening atelectasis/edema or consolidation. 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 Will continue to follow along with you. Subjective Allergies: Coded Allergies: HYDROMORPHONE (Unverified Allergy, Unknown, 01/04/18) Objective Vital Signs Last 24 Hour Vital Signs Date Time Temp Pulse Resp B/P (MAP) Pulse Ox O2 Delivery O2 Flow Rate FiO2 08/18/19 12:00 98.1 91 19 119/65 (83) 98 08/18/19 09:33 97 135/72 08/18/19 08:45 Room Air 08/18/19 08:00 97.9 97 20 135/72 (93) 98 08/18/19 06:47 87 16 98 Room Air 21 08/18/19 04:00 98.3 93 18 121/70 (87) 08/18/19 00:00 98.6 95 17 119/63 (81) 95 08/17/19 21:00 Room Air 08/17/19 20:00 75 08/17/19 20:00 97.8 75 17 119/60 (79) 93 08/17/19 16:00 82 08/17/19 16:00 98.4 83 20 134/78 (96) 97 Height (Feet): 6 Height (Inches): 0.00 Weight (Pounds): 138 Objective General Appearance: WD/WN Lines, tubes and drains: peripheral HEENT: normocephalic, atraumatic Neck: non-tender, normal alignment Respiratory/Chest: chest wall non-tender, lungs clear Cardiovascular/Chest: normal peripheral pulses Abdomen: normal bowel sounds, non tender Genitourinary/Rectal: normal genital exam Extremities: normal range of motion Skin Exam: R shoulder abscess s/p i+D- wound with some puruelent discharge Microbiology Date/Time Source Procedure Growth Status 08/16/19 07:15 Blood Blood Culture - Preliminary NO GROWTH AFTER 24 HOURS Resulted 08/16/19 07:10 Blood Blood Culture - Preliminary NO GROWTH AFTER 24 HOURS Resulted 08/15/19 20:30 Blood Blood Culture - Preliminary Gram Positive Cocci Resulted 08/15/19 20:15 Blood Blood Culture - Preliminary Resulted 08/15/19 20:30 Nasal Nares MRSA Culture - Final NO METHICILLIN RESISTANT STAPH AUREUS... Complete 08/15/19 21:40 Urine,Clean Catch Urine Culture - Preliminary NO GROWTH AFTER 24 HOURS Resulted 08/15/19 20:30 Rectum VRE Culture - Final NO VANCOMYCIN RESISTANT ENTEROCOCCUS ... Complete Current Medications Medications (Trade) Dose Ordered Sig/Nelson Route PRN Reason Start Time Stop Time Status Last Admin Dose Admin Acetaminophen (Tylenol) 650 mg Q4H PRN GT Mild Pain/Temp > 100.5 08/18/19 03:15 09/15/19 03:44 Albuterol/ Ipratropium (Albuterol/ Ipratropium) 3 ml Q4H PRN HHN Shortness of Breath 08/18/19 03:00 08/21/19 06:59 Amlodipine Besylate (Norvasc) 5 mg DAILY GT 08/18/19 09:00 09/15/19 08:59 08/18/19 09:33 Baclofen (Lioresal) 5 mg THREE TIMES A DAY GT 08/18/19 09:00 09/15/19 08:59 08/18/19 14:16 Cefepime HCl 2 gm/ Dextrose 110 ml @ 220 mls/hr Q24H IV 08/18/19 10:00 08/23/19 09:59 08/18/19 09:33 Heparin Sodium (Porcine) (Heparin 5000 units/ml) 5,000 units EVERY 12 HOURS SUBQ 08/18/19 09:00 09/15/19 08:59 08/18/19 09:34 Nitroglycerin (Ntg) 0.4 mg Q5M PRN SL Prn Chest Pain 08/18/19 00:00 09/15/19 06:59 Ondansetron HCl (Zofran) 4 mg Q6H PRN IVP Nausea & Vomiting 08/18/19 01:00 09/15/19 06:59 Polyethylene Glycol (Miralax) 17 gm DAILYPRN PRN ORAL Constipation 08/18/19 07:00 09/15/19 06:59 Sodium Chloride 1,000 ml @ 150 mls/hr Q6H40M IV 08/18/19 00:00 09/15/19 06:56 08/18/19 14:16 Tamsulosin HCl (Flomax) 0.4 mg BEDTIME ORAL 08/18/19 21:00 09/15/19 20:59 Temazepam (Restoril) 15 mg HSPRN PRN ORAL Insomnia 08/18/19 07:00 08/23/19 06:59 Vancomycin HCl (Vanco rx to dose) 1 ea DAILY PRN MISC . 08/18/19 09:00 09/15/19 07:14 Vancomycin/Sodium Chloride 275 ml @ 183.333 mls/hr Q12HR IVPB 08/18/19 09:00 08/22/19 20:59 08/18/19 10:18 Avril Zaragoza M.D. Aug 18, 2019 15:18
[2019-08-18 16:00] VITALS: BP 134/75
--- NOTE | 2019-08-18 19:28 | NUR ---
HAND-OFF: Report given to SERGIO Beyer.
--- NOTE | 2019-08-18 19:50 | NUR ---
NURSE NOTES: Received patient in bed, eyes open, non verbal, on g tube feeding, tolerating well, with 0 residual. IV site is clean dry and intact, call light is within reach, bed is lowered, locked and alarm is on, will continue to monitor for comfort and safety.
[2019-08-18 20:00] VITALS: BP 149/87
[2019-08-18] MEDS: Tamsulosin 0.4mg cap ORAL SCH (20:15)
[2019-08-19 00:34] VITALS: BP 125/65
[2019-08-19 04:00] VITALS: BP 121/69
--- NOTE | 2019-08-19 07:33 | NUR ---
HAND-OFF: Report given to Genevieve HILL.
--- NOTE | 2019-08-19 07:35 | NUR ---
NURSE NOTES: Received patient in bed, awake, non-verbal. Breathing is even and unlabored. No s/s of pain or discomfort per FLACC pain scale. HOB elevated. Tolerating with osmolite tube feeding without residual. IV intact, no s/s of infiltration, renner in place draining well to gravity with yellowish urine. On p200 mattress. Bed is in lowest position and locked. Will continue plan of care.
[2019-08-19 08:00] VITALS: BP 124/70
[2019-08-19] MEDS: Heparin 5000 units/ml inj SUBQ SCH ×2 (08:24→21:42)
[2019-08-19] MEDS: Vancomycin 1.25gm/NS Premix 275 ML IVPB SCH (09:00)
--- NOTE | 2019-08-19 09:30 | NUR ---
NURSE NOTES: Still waiting for Vanco through results. Per labeling machine operator it is in the machine. Will follow up.
--- NOTE | 2019-08-19 09:47 | Pulmonology Progress Note ---
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 repeated BCX 08/16 NGTD pain management O2 HHN PRN fup with CXR strict aspiration precaution, G-tube feeding DVT prophylaxis BP management with CCB BS management with SSI sensitive scale, check HgA1c dietary eval bowel regimen supportive care DNR/DNI status case discussed and evaluated by supervising physician Subjective Allergies: Coded Allergies: HYDROMORPHONE (Unverified Allergy, Unknown, 01/04/18) Subjective afebrile, no leukocytosis no signs of resp distress Objective Last 24 Hour Vital Signs Date Time Temp Pulse Resp B/P (MAP) Pulse Ox O2 Delivery O2 Flow Rate FiO2 08/19/19 09:00 Room Air 08/19/19 08:24 93 124/70 08/19/19 08:00 97.5 93 20 124/70 (88) 97 08/19/19 04:00 97.7 90 21 121/69 (86) 97 90 08/19/19 00:34 97.9 73 21 125/65 (85) 95 73 08/18/19 21:23 Room Air 08/18/19 20:00 98.2 92 21 149/87 (107) 98 08/18/19 16:00 98.4 87 20 134/75 (94) 98 08/18/19 12:00 98.1 91 19 119/65 (83) 98 Intake and Output 08/18/19 08/19/19 19:00 07:00 Intake Total 160 ml 550 ml Output Total 1400 ml Balance -1240 ml 550 ml Intake Free Water 100 ml 100 ml Tube Feeding 60 ml 450 ml Output Urine Total 1400 ml # Bowel Movements 1 General Appearance: cachetic, other - bedridden chronically ill looking AA male in NAD HEENT: normocephalic, atraumatic, anicteric Respiratory/Chest: lungs clear - with moderate air exchange Cardiovascular: normal rate Abdomen: normal bowel sounds, soft, non tender, other - G tube Skin: other - healed deep scar L LE Neurologic/Psychiatric: abnormal gait, other - awake, nonverbal, poorly responsive, but withdrws to tactile stimuli ; contracted left arm Musculoskeletal: atrophy - BLE Laboratory Tests 08/19/19 08:00: Vancomycin Level Trough [Pending] Current Medications Medications (Trade) Dose Ordered Sig/Nelson Route PRN Reason Start Time Stop Time Status Last Admin Dose Admin Acetaminophen (Tylenol) 650 mg Q4H PRN GT Mild Pain/Temp > 100.5 08/18/19 03:15 09/15/19 03:44 Albuterol/ Ipratropium (Albuterol/ Ipratropium) 3 ml Q4H PRN HHN Shortness of Breath 08/18/19 03:00 08/21/19 06:59 Amlodipine Besylate (Norvasc) 5 mg DAILY GT 08/18/19 09:00 09/15/19 08:59 08/19/19 08:24 Baclofen (Lioresal) 5 mg THREE TIMES A DAY GT 08/18/19 09:00 09/15/19 08:59 08/19/19 08:23 Cefepime HCl 2 gm/ Dextrose 110 ml @ 220 mls/hr Q24H IV 08/18/19 10:00 08/23/19 09:59 08/18/19 09:33 Heparin Sodium (Porcine) (Heparin 5000 units/ml) 5,000 units EVERY 12 HOURS SUBQ 08/18/19 09:00 09/15/19 08:59 08/19/19 08:24 Nitroglycerin (Ntg) 0.4 mg Q5M PRN SL Prn Chest Pain 08/18/19 00:00 09/15/19 06:59 Ondansetron HCl (Zofran) 4 mg Q6H PRN IVP Nausea & Vomiting 08/18/19 01:00 09/15/19 06:59 Polyethylene Glycol (Miralax) 17 gm DAILYPRN PRN ORAL Constipation 08/18/19 07:00 09/15/19 06:59 Sodium Chloride 1,000 ml @ 150 mls/hr Q6H40M IV 08/18/19 00:00 09/15/19 06:56 08/19/19 04:30 Tamsulosin HCl (Flomax) 0.4 mg BEDTIME ORAL 08/18/19 21:00 09/15/19 20:59 08/18/19 20:15 Temazepam (Restoril) 15 mg HSPRN PRN ORAL Insomnia 08/18/19 07:00 08/23/19 06:59 Vancomycin HCl (Vanco rx to dose) 1 ea DAILY PRN MISC . 08/18/19 09:00 09/15/19 07:14 Vancomycin/Sodium Chloride 275 ml @ 183.333 mls/hr Q12HR IVPB 08/18/19 09:00 08/22/19 20:59 08/18/19 20:15 Tiera Pat NP Aug 19, 2019 09:47
--- NOTE | 2019-08-19 10:00 | NUR ---
NURSE NOTES: Skin assessment done, no new skin issue.Picture obtained.
[2019-08-19] MEDS: Cefepime HCl 2 GM in D5W 110 ML IV SCH (11:02)
[2019-08-19 12:00] VITALS: BP 146/83
--- NOTE | 2019-08-19 12:21 | NUR ---
CASE MANAGEMENT: REVIEW SI: SEPSIS . PNA . HX CVA . QUADRIPARESIS T 97.5 HR 93 RR 20 BP 124/70 SAT 97% ROOM AIR IS: NS IVF @ 75ML/HR JOANN NEB HHN Q4HR PRN NOVOLOG SUBQ AC+HS CEFEPIME IV Q24HR GT FEEDING @ 50ML/HR MED/SURG STATUS DCP: PATIENT IS FROM [facility]
--- NOTE | 2019-08-19 12:36 | Infectious Diseases Prog Note ---
Assessment/Plan Assessment/Plan Assessment: Sepsis R shoulder abscess -08/15 SP I+D (on ED)-removal of 20-30 mL of foul smelling purulent material ; cx were not sent Gram positive bacteremia- could be real given abscess -08/15 Bcx 2/4 S. capitis; 08/16 Bcx NTD Probable PNA -CXR: New right infrahilar/basilar airspace opacity which may represent worsening atelectasis/edema or consolidation. 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 Will continue to follow along with you. Subjective Allergies: Coded Allergies: HYDROMORPHONE (Unverified Allergy, Unknown, 01/04/18) Subjective afebrile >72hrs Repaet Bcx NTD no leukocytosis Objective Vital Signs Last 24 Hour Vital Signs Date Time Temp Pulse Resp B/P (MAP) Pulse Ox O2 Delivery O2 Flow Rate FiO2 08/19/19 12:15 91 17 96 Room Air 21 08/19/19 09:00 Room Air 08/19/19 08:24 93 124/70 08/19/19 08:00 97.5 93 20 124/70 (88) 97 08/19/19 04:00 97.7 90 21 121/69 (86) 97 90 08/19/19 00:34 97.9 73 21 125/65 (85) 95 73 08/18/19 21:23 Room Air 08/18/19 20:00 98.2 92 21 149/87 (107) 98 08/18/19 16:00 98.4 87 20 134/75 (94) 98 Height (Feet): 6 Height (Inches): 0.00 Weight (Pounds): 138 Objective General Appearance: WD/WN Lines, tubes and drains: peripheral HEENT: normocephalic, atraumatic Neck: non-tender, normal alignment Respiratory/Chest: chest wall non-tender, lungs clear Cardiovascular/Chest: normal peripheral pulses Abdomen: normal bowel sounds, non tender Genitourinary/Rectal: normal genital exam Extremities: normal range of motion Skin Exam: R shoulder abscess s/p i+D- wound with some puruelent discharge Laboratory Tests Test 08/19/19 08:00 Vancomycin Level Trough 22.8 ug/mL (5.0-12.0) H Current Medications Medications (Trade) Dose Ordered Sig/Nelson Route PRN Reason Start Time Stop Time Status Last Admin Dose Admin Acetaminophen (Tylenol) 650 mg Q4H PRN GT Mild Pain/Temp > 100.5 08/18/19 03:15 09/15/19 03:44 Albuterol/ Ipratropium (Albuterol/ Ipratropium) 3 ml Q4H PRN HHN Shortness of Breath 08/19/19 15:00 08/22/19 18:59 Amlodipine Besylate (Norvasc) 5 mg DAILY GT 08/18/19 09:00 09/15/19 08:59 08/19/19 08:24 Baclofen (Lioresal) 5 mg THREE TIMES A DAY GT 08/18/19 09:00 09/15/19 08:59 08/19/19 08:23 Cefepime HCl 2 gm/ Dextrose 110 ml @ 220 mls/hr Q24H IV 08/18/19 10:00 08/23/19 09:59 08/19/19 11:02 Dextrose (Dextrose 50%) 25 ml Q30M PRN IV Hypoglycemia 08/19/19 11:15 09/18/19 11:14 Dextrose (Dextrose 50%) 50 ml Q30M PRN IV Hypoglycemia 08/19/19 11:15 09/18/19 11:14 Heparin Sodium (Porcine) (Heparin 5000 units/ml) 5,000 units EVERY 12 HOURS SUBQ 08/18/19 09:00 09/15/19 08:59 08/19/19 08:24 Insulin Aspart (NovoLOG) BEFORE MEALS AND HS SUBQ 08/19/19 11:30 09/18/19 11:29 Nitroglycerin (Ntg) 0.4 mg Q5M PRN SL Prn Chest Pain 08/18/19 00:00 09/15/19 06:59 Ondansetron HCl (Zofran) 4 mg Q6H PRN IVP Nausea & Vomiting 08/18/19 01:00 09/15/19 06:59 Polyethylene Glycol (Miralax) 17 gm DAILYPRN PRN ORAL Constipation 08/18/19 07:00 09/15/19 06:59 Sodium Chloride 1,000 ml @ 75 mls/hr [id number] IV 08/20/19 00:00 09/15/19 06:56 Tamsulosin HCl (Flomax) 0.4 mg BEDTIME ORAL 08/18/19 21:00 09/15/19 20:59 08/18/19 20:15 Temazepam (Restoril) 15 mg HSPRN PRN ORAL Insomnia 08/18/19 07:00 08/23/19 06:59 Vancomycin HCl (Vanco rx to dose) 1 ea DAILY PRN MISC . 08/18/19 09:00 09/15/19 07:14 Vancomycin HCl 1 gm/Dextrose 275 ml @ 183.708 mls/hr Q12H IVPB 08/19/19 11:00 08/24/19 10:59 Avril Zaragoza M.D. Aug 19, 2019 12:36
[2019-08-19] MEDS: Vancomycin 1gm in D5W 275ml IVPB SCH ×2 (13:13→22:04)
[2019-08-19] MEDS: NovoLOG Insulin Flexpen SUBQ SCH ×3 (13:18→21:42)
[2019-08-19] MEDS ORDERED: Albuterol/Ipratropium 3ml neb HHN PRN (15:00)
[2019-08-19 16:00] VITALS: BP 153/81
[2019-08-19] MEDS ORDERED: Tubing IV Secondary IV ONE ×2 (16:05→20:37)
[2019-08-19] MEDS ORDERED: NS 275ml ONE (16:05)
--- NOTE | 2019-08-19 19:48 | NUR ---
NURSE NOTES: Patient in bed, awake, unable to make needs known. Respiration is even and unlabored. Family is at bedside. Kept clean and comfortable. Provided safe environment. Bed in low and locked position. No s/s of pain or discomfort noted. IV site noted, IV fluid is infusing as ordered. GT site noted, feeding is infusing as ordered. NOted with multiple dressings, clean and intact. Will continue plan of care.
[2019-08-19 20:00] VITALS: BP 155/90
[2019-08-19] MEDS ORDERED: 1/2 NS 1000ml IV ONE (20:37)
[2019-08-19] MEDS: Tamsulosin 0.4mg cap ORAL SCH (21:41)
[2019-08-20] VITALS: BP 136/84
[2019-08-20 04:00] VITALS: BP 132/71
[2019-08-20] MEDS: NovoLOG Insulin Flexpen SUBQ SCH ×4 (05:49→21:15)
[2019-08-20 07:03] LABS: BASOPHILS % (AUTO) 0.4 % (0.0-2.0); EOSINOPHILS % (AUTO) 6.1 % (0.0-3.0); HEMATOCRIT 34.9 % (42.0-52.0); HEMOGLOBIN 11.5 G/DL (14.2-18.0); LYMPHOCYTES % (AUTO) 20.9 % (20.0-45.0); MEAN CORPUSCULAR VOLUME 99 FL (80-99); MONOCYTES % (AUTO) 7.3 % (1.0-10.0); NEUTROPHILS % (AUTO) 65.2 % (45.0-75.0); PLATELET COUNT 451 K/UL (150-450); RED BLOOD COUNT 3.53 M/UL (4.70-6.10); RED CELL DISTRIBUTION WIDTH 12.2 % (11.6-14.8)
--- NOTE | 2019-08-20 07:26 | Pulmonology Progress Note ---
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 repeated BCX 08/16 NGTD pain management O2 HHN PRN fup with CXR strict aspiration precaution, G-tube feeding DVT prophylaxis BP management with CCB BS management with SSI sensitive scale, check HgA1c -5.6 K stable after replacement dietary eval bowel regimen supportive care DNR/DNI status case discussed and evaluated by supervising physician Subjective Allergies: Coded Allergies: HYDROMORPHONE (Unverified Allergy, Unknown, 01/04/18) Subjective afebrile, no leukocytosis no signs of resp distress K stable after replacement Objective Last 24 Hour Vital Signs Date Time Temp Pulse Resp B/P (MAP) Pulse Ox O2 Delivery O2 Flow Rate FiO2 08/20/19 04:00 98.1 74 20 132/71 (91) 96 08/20/19 00:00 97.4 96 20 136/84 (101) 95 08/19/19 20:30 Room Air 08/19/19 20:05 92 18 94 Room Air 21 08/19/19 20:00 98.1 93 20 155/90 (111) 96 08/19/19 16:00 98.0 97 18 153/81 (105) 98 08/19/19 12:15 91 17 96 Room Air 21 08/19/19 12:00 98.2 94 18 146/83 (104) 98 08/19/19 09:00 Room Air 08/19/19 08:24 93 124/70 08/19/19 08:00 97.5 93 20 124/70 (88) 97 Intake and Output 08/19/19 08/20/19 19:00 07:00 Intake Total 1320 ml 975.000 ml Output Total 2300 ml 2100 ml Balance -980 ml -1125.000 ml Intake Free Water 120 ml 250 ml IV Total 600 ml 425.000 ml Tube Feeding 600 ml 300 ml Output Urine Total 2300 ml 2100 ml # Voids 2 # Bowel Movements 2 1 Objective General Appearance: cachetic, bedridden chronically ill looking AA male in NAD HEENT: normocephalic, atraumatic, anicteric Respiratory/Chest: lungs clear - with moderate air exchange Cardiovascular: normal rate Abdomen: normal bowel sounds, soft, non tender, G tube Skin: other - healed deep scar L LE Neurologic/Psychiatric: abnormal gait, awake, nonverbal, poorly responsive, but withdraws to tactile stimuli ; contracted left arm Musculoskeletal: atrophy - BLE Laboratory Tests 08/19/19 08:00: Vancomycin Level Trough 22.8H 08/20/19 06:35: White Blood Count 5.0, Red Blood Count 3.53L, Hemoglobin 11.5L, Hematocrit 34.9L , Mean Corpuscular Volume 99, Mean Corpuscular Hemoglobin 32.5H, Mean Corpuscular Hemoglobin Concent 32.8, Red Cell Distribution Width 12.2, Platelet Count 451H, Mean Platelet Volume 6.5, Neutrophils (%) (Auto) 65.2, Lymphocytes ( %) (Auto) 20.9, Monocytes (%) (Auto) 7.3, Eosinophils (%) (Auto) 6.1H, Basophils (%) (Auto) 0.4, Sodium Level [Pending], Potassium Level [Pending], Chloride Level [Pending], Carbon Dioxide Level [Pending], Blood Urea Nitrogen [ Pending], Creatinine [Pending], Estimat Glomerular Filtration Rate [Pending], Glucose Level [Pending], Hemoglobin A1c [Pending], Calcium Level [Pending] Current Medications Medications (Trade) Dose Ordered Sig/Nelson Route PRN Reason Start Time Stop Time Status Last Admin Dose Admin Acetaminophen (Tylenol) 650 mg Q4H PRN GT Mild Pain/Temp > 100.5 08/18/19 03:15 09/15/19 03:44 Albuterol/ Ipratropium (Albuterol/ Ipratropium) 3 ml Q4H PRN HHN Shortness of Breath 08/19/19 15:00 08/22/19 18:59 Amlodipine Besylate (Norvasc) 5 mg DAILY GT 08/18/19 09:00 09/15/19 08:59 08/19/19 08:24 Baclofen (Lioresal) 5 mg THREE TIMES A DAY GT 08/18/19 09:00 09/15/19 08:59 08/19/19 18:38 Cefepime HCl 2 gm/ Dextrose 110 ml @ 220 mls/hr Q24H IV 08/18/19 10:00 08/23/19 09:59 08/19/19 11:02 Dextrose (Dextrose 50%) 25 ml Q30M PRN IV Hypoglycemia 08/19/19 11:15 09/18/19 11:14 Dextrose (Dextrose 50%) 50 ml Q30M PRN IV Hypoglycemia 08/19/19 11:15 09/18/19 11:14 Heparin Sodium (Porcine) (Heparin 5000 units/ml) 5,000 units EVERY 12 HOURS SUBQ 08/18/19 09:00 09/15/19 08:59 08/19/19 21:42 Insulin Aspart (NovoLOG) BEFORE MEALS AND HS SUBQ 08/19/19 11:30 09/18/19 11:29 08/20/19 05:49 Nitroglycerin (Ntg) 0.4 mg Q5M PRN SL Prn Chest Pain 08/18/19 00:00 09/15/19 06:59 Ondansetron HCl (Zofran) 4 mg Q6H PRN IVP Nausea & Vomiting 08/18/19 01:00 09/15/19 06:59 Polyethylene Glycol (Miralax) 17 gm DAILYPRN PRN ORAL Constipation 08/18/19 07:00 09/15/19 06:59 Sodium Chloride 1,000 ml @ 75 mls/hr [id number] IV 08/20/19 00:00 09/15/19 06:56 08/20/19 02:00 Tamsulosin HCl (Flomax) 0.4 mg BEDTIME ORAL 08/18/19 21:00 09/15/19 20:59 08/19/19 21:41 Temazepam (Restoril) 15 mg HSPRN PRN ORAL Insomnia 08/18/19 07:00 08/23/19 06:59 Vancomycin HCl (Vanco rx to dose) 1 ea DAILY PRN MISC . 08/18/19 09:00 09/15/19 07:14 Vancomycin HCl 1 gm/Dextrose 275 ml @ 183.708 mls/hr Q12H IVPB 08/19/19 11:00 08/24/19 10:59 08/19/19 22:04 Tiera Pat NP Aug 20, 2019 07:26
[2019-08-20 07:29] LABS: ANION GAP 11 mmol/L (5-15); BLOOD UREA NITROGEN 10 mg/dL (7-18); CALCIUM 9.4 MG/DL (8.5-10.1); CARBON DIOXIDE 27 MMOL/L (21-32); CHLORIDE 104 MMOL/L (98-107); CREATININE 0.5 MG/DL (0.55-1.30); POTASSIUM 3.8 MMOL/L (3.5-5.1); SODIUM 142 MMOL/L (136-145)
--- NOTE | 2019-08-20 07:32 | NUR ---
HAND-OFF: Report given to Trenton Cespedes.
[2019-08-20 08:00] VITALS: BP 130/73
--- NOTE | 2019-08-20 08:01 | NUR ---
NURSE NOTES: Pt resting in bed. Awake, a/O x 1, calm, denies pain. no SOB noted. pts on specialty bed. GT feeding at 50cc, tolerating well, no residual. pts on IVF, and Abx, dressings on right should, norman heels and norman elbow CDI. HOB >30, bed alarm on, fall and asp precaution maintained. will continue to monitor.
[2019-08-20] MEDS: Cefepime HCl 2 GM in D5W 110 ML IV SCH (09:34)
[2019-08-20] MEDS: Heparin 5000 units/ml inj SUBQ SCH ×2 (09:39→21:17)
[2019-08-20 12:00] VITALS: BP 140/73
[2019-08-20] MEDS: Vancomycin 1gm in D5W 275ml IVPB SCH (12:50)
[2019-08-20 16:00] VITALS: BP 150/82
--- NOTE | 2019-08-20 19:21 | NUR ---
HAND-OFF: Report given to Rubin HILL.
[2019-08-20 20:00] VITALS: BP 144/93
--- NOTE | 2019-08-20 20:00 | NUR ---
NURSE NOTES: Patient in bed, awake, alert x 1. IV site noted, iv fluid is infusing. GT site noted, feeding is infusing. Kept clean and comfortable. Provided safe environment. Benavidez catheter noted. No s/s of pain or discomfort noted. Respiration is even and unlabored. Abdomen is soft and non distended. call light is at bedside. Will continue plan of care.
[2019-08-20] MEDS: Tamsulosin 0.4mg cap ORAL SCH (21:14)
[2019-08-21] VITALS: BP 137/78
--- NOTE | 2019-08-21 03:25 | NUR ---
NURSE NOTES: Patient had a small bowel movement. Changed patient. Changed sacral and left elbow dressing. Bed in low and locked position. Provided safe environment. Will continue plan of care.
[2019-08-21 04:00] VITALS: BP 137/78
[2019-08-21] MEDS: NovoLOG Insulin Flexpen SUBQ SCH ×4 (05:34→20:17)
--- NOTE | 2019-08-21 07:16 | NUR ---
HAND-OFF: Report given to Trenton Limon.
--- NOTE | 2019-08-21 07:37 | NUR ---
NURSE NOTES: pt resting in bed. Awake, A/O x 1, calm. no pain , no SOB noted. Dressing changed by caustic cresylate shift superintendent nurse, MEHRAN. pts on Gtube feeding, tolerating well, no residual. pts on IVF and Abx. HOB >30, aspiration precaution maintained. call light within reach, bed in low position, bed alarm on. fall precaution maintained.
[2019-08-21 08:00] VITALS: BP 131/73
--- NOTE | 2019-08-21 08:12 | NUR ---
NURSE NOTES: pts BP 131/73, HR 128, Temp 100F, RR 20. notified MD. new order received.
[2019-08-21 08:27] LABS: HEMATOCRIT 35.6 % (42.0-52.0); HEMOGLOBIN 11.9 G/DL (14.2-18.0); MEAN CORPUSCULAR VOLUME 99 FL (80-99); PLATELET COUNT 618 K/UL (150-450); RED BLOOD COUNT 3.61 M/UL (4.70-6.10); RED CELL DISTRIBUTION WIDTH 12.4 % (11.6-14.8); WHITE BLOOD COUNT 13.1 K/UL (4.8-10.8)
[2019-08-21] MEDS: Heparin 5000 units/ml inj SUBQ SCH ×2 (08:33→20:17)
[2019-08-21 08:44] LABS: ANION GAP 9 mmol/L (5-15); BLOOD UREA NITROGEN 11 mg/dL (7-18); CALCIUM 9.3 MG/DL (8.5-10.1); CARBON DIOXIDE 29 MMOL/L (21-32); CHLORIDE 101 MMOL/L (98-107); CREATININE 0.7 MG/DL (0.55-1.30); POTASSIUM 3.6 MMOL/L (3.5-5.1); SODIUM 139 MMOL/L (136-145)
--- NOTE | 2019-08-21 09:43 | NUR ---
CASE MANAGEMENT:REVIEW 08/21/19 SI: SEPSIS. RT SHOULDER ABSCESS. PNA 100.0 128 20 131/73 98% ON RA WBC+13.1 IS: IV VANCOMYCIN Q12 IV CEFEPIME Q24 IVF@75/HR NORVASC GT QD : MED/SURG STATUS 4 EAST DCP: FROM [facility]
[2019-08-21] MEDS: Vancomycin 750 MG in D5W 275 ML IVPB SCH ×2 (11:00→23:27)
[2019-08-21] MEDS: Cefepime HCl 2 GM in D5W 110 ML IV SCH (11:09)
[2019-08-21 12:00] VITALS: BP 148/79
--- NOTE | 2019-08-21 13:22 | Pulmonology Progress Note ---
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 repeat cbc in am cxr today dc planning soon Subjective ROS Limited/Unobtainable: Yes Interval Events: open eyes, comfortable. Allergies: Coded Allergies: HYDROMORPHONE (Unverified Allergy, Unknown, 01/04/18) Objective Last 24 Hour Vital Signs Date Time Temp Pulse Resp B/P (MAP) Pulse Ox O2 Delivery O2 Flow Rate FiO2 08/21/19 12:00 98.8 110 20 148/79 (102) 98 08/21/19 09:00 Room Air 08/21/19 08:54 100.0 08/21/19 08:24 128 131/73 08/21/19 08:18 100 18 96 Room Air 21 08/21/19 08:00 100.0 128 20 131/73 (92) 98 08/21/19 04:00 98.1 110 22 137/78 (97) 96 08/21/19 00:00 98.1 100 22 137/78 (97) 98 08/20/19 20:33 88 18 94 Room Air 21 08/20/19 20:00 98.1 100 20 144/93 (110) 97 08/20/19 18:09 Room Air 08/20/19 16:00 98.1 100 18 150/82 (104) 98 Intake and Output 08/20/19 08/21/19 19:00 07:00 Intake Total 1800 ml 1350 ml Output Total 1250 ml Balance 1800 ml 100 ml Intake Free Water 100 ml 100 ml IV Total 1050 ml 700 ml Tube Feeding 650 ml 550 ml Output Urine Total 1250 ml # Bowel Movements 1 General Appearance: WD/WN HEENT: normocephalic, atraumatic Respiratory/Chest: chest wall non-tender, lungs clear Cardiovascular: normal peripheral pulses, normal rate Abdomen: normal bowel sounds, soft, non tender 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, abnormal gait Microbiology Date/Time Source Procedure Growth Status 08/20/19 13:00 Sputum Induced Gram Stain - Final Resulted 08/20/19 13:00 Sputum Induced Sputum Culture Pending Resulted 08/20/19 06:00 Indwelling Cath Urine Culture - Preliminary NO GROWTH Resulted 08/20/19 06:50 Shoulder Right Gram Stain - Final Resulted 08/20/19 06:50 Shoulder Right Wound Culture Pending Resulted Laboratory Tests 08/20/19 22:00: Vancomycin Level Trough 21.4H 08/21/19 07:33: White Blood Count 13.1#H, Red Blood Count 3.61L, Hemoglobin 11.9L, Hematocrit 35.6L, Mean Corpuscular Volume 99, Mean Corpuscular Hemoglobin 32.9H, Mean Corpuscular Hemoglobin Concent 33.4, Red Cell Distribution Width 12.4, Platelet Count 618H, Mean Platelet Volume 6.4L, Neutrophils (%) (Auto) , Lymphocytes (%) (Auto) , Monocytes (%) (Auto) , Eosinophils (%) (Auto) , Basophils (%) (Auto) , Differential Total Cells Counted 100, Neutrophils % (Manual) 91H, Lymphocytes % (Manual) 4L, Monocytes % (Manual) 4, Eosinophils % (Manual) 0, Basophils % ( Manual) 0, Band Neutrophils 1, Platelet Estimate IncreasedH, Platelet Morphology Normal, Red Blood Cell Morphology Normal, Sodium Level 139, Potassium Level 3.6, Chloride Level 101, Carbon Dioxide Level 29, Anion Gap 9, Blood Urea Nitrogen 11, Creatinine 0.7, Estimat Glomerular Filtration Rate , Glucose Level 135H, Calcium Level 9.3 Current Medications Medications (Trade) Dose Ordered Sig/Nelson Route PRN Reason Start Time Stop Time Status Last Admin Dose Admin Acetaminophen (Tylenol) 650 mg Q4H PRN GT Mild Pain/Temp > 100.5 08/18/19 03:15 09/15/19 03:44 08/21/19 08:24 Albuterol/ Ipratropium (Albuterol/ Ipratropium) 3 ml Q4H PRN HHN Shortness of Breath 08/19/19 15:00 08/22/19 18:59 Amlodipine Besylate (Norvasc) 5 mg DAILY GT 08/18/19 09:00 09/15/19 08:59 08/21/19 08:24 Baclofen (Lioresal) 5 mg THREE TIMES A DAY GT 08/18/19 09:00 09/15/19 08:59 08/21/19 08:24 Cefepime HCl 2 gm/ Dextrose 110 ml @ 220 mls/hr Q24H IV 08/18/19 10:00 08/23/19 09:59 08/21/19 11:09 Dextrose (Dextrose 50%) 25 ml Q30M PRN IV Hypoglycemia 08/19/19 11:15 09/18/19 11:14 Dextrose (Dextrose 50%) 50 ml Q30M PRN IV Hypoglycemia 08/19/19 11:15 09/18/19 11:14 Heparin Sodium (Porcine) (Heparin 5000 units/ml) 5,000 units EVERY 12 HOURS SUBQ 08/18/19 09:00 09/15/19 08:59 08/21/19 08:33 Insulin Aspart (NovoLOG) BEFORE MEALS AND HS SUBQ 08/19/19 11:30 09/18/19 11:29 08/21/19 11:33 Nitroglycerin (Ntg) 0.4 mg Q5M PRN SL Prn Chest Pain 08/18/19 00:00 09/15/19 06:59 Ondansetron HCl (Zofran) 4 mg Q6H PRN IVP Nausea & Vomiting 08/18/19 01:00 09/15/19 06:59 Polyethylene Glycol (Miralax) 17 gm DAILYPRN PRN ORAL Constipation 08/18/19 07:00 09/15/19 06:59 Sodium Chloride 1,000 ml @ 75 mls/hr [id number] IV 08/20/19 00:00 09/15/19 06:56 08/21/19 03:15 Tamsulosin HCl (Flomax) 0.4 mg BEDTIME ORAL 08/18/19 21:00 09/15/19 20:59 08/20/19 21:14 Temazepam (Restoril) 15 mg HSPRN PRN ORAL Insomnia 08/18/19 07:00 08/23/19 06:59 Vancomycin HCl (Vanco rx to dose) 1 ea DAILY PRN MISC . 08/18/19 09:00 09/15/19 07:14 Vancomycin HCl 750 mg/Dextrose 275 ml @ 184 mls/hr Q12H IVPB 08/21/19 11:00 08/26/19 10:59 08/21/19 11:00 Sowmya Abbasi MD Aug 21, 2019 13:22
--- NOTE | 2019-08-21 14:59 | NUR ---
RD ASSESSMENT & RECOMMENDATIONS SEE CARE ACTIVITY FOR COMPLETE ASSESSMENT DAILY ESTIMATED NEEDS: Needs based on cardiac, wound healing, bed bound 63kg 28-33 kcals/kg 4841-5488 total kcals 1.25-1.5 g protein/kg 79-95 g total protein 25-30 mL/kg 3002-8456 total fluid mLs NUTRITION DIAGNOSIS: * Swallowing difficulty R/T dysphagia as evidenced by pt PEG dependent. * Increased Kcal and pro needs r/t wound healing as evidenced by pt w/ R scapula abscess (s/p I&D), resolving pressure injury L elbow, and partial thickness wound L heel. CURRENT TF:Osmolite 1.5 @50ml/hr x24 hrs + Prosource x1 daily ENTERAL NUTRITION RECOMMENDATIONS: Osmolite 1.5 @50ml/hr x24 hrs + Prosource x1 daily to provide 1200ml, 1800kcal, 75g pro + 11g pro, 914ml free water * Maintain current TF +Prosource 1pkt daily * HOB over 30 degrees/ water flush per MD. ----- W/ consistently elev BGs, rec TF change to Glucerna 1.5 @ 50ml/hr x 24 hrs to provide 1200ml, 1800kcal, 99g prot, 911ml free water ADDITIONAL RECOMMENDATIONS: * Calibrated bedscale wt for accurate CBW * Wound healing: Phillip 1pkt BID, Vit C 250mg daily * Monitor BGs closely -> rec carb controlled TF w/ consistently elev BGs see above TF rec
--- NOTE | 2019-08-21 15:13 | NUR ---
RADIOLOGY DEPT., CHEST X-RAY DONE.-P.DYE
--- NOTE | 2019-08-21 15:55 | Diagnostic Imaging Report ---
Indication: Dyspnea Comparison: 08/16/2019 A single view chest radiograph was obtained. Findings: Lung volumes are low. Bronchovascular markings are prominent. Heart size is prominent. Bones are osteopenic. Extensive heterotopic bone about the right glenohumeral joint noted. IMPRESSION: Limited study due to low lung volumes. No acute disease
[2019-08-21 16:00] VITALS: BP 144/80
--- NOTE | 2019-08-21 16:15 | NUR ---
NURSE NOTES: Pts BP 144/80, HR 114, temp 98.9F, Notified Dr. Abbasi, no new order received.
--- NOTE | 2019-08-21 17:44 | Infectious Diseases Prog Note ---
Assessment/Plan Assessment/Plan Assessment: Sepsis R shoulder abscess -08/15 SP I+D (on ED)-removal of 20-30 mL of foul smelling purulent material ; cx were not sent -08/20 wound cx: GNR and GPC Gram positive bacteremia- could be real given abscess -08/15 Bcx 2/4 S. capitis; 08/16 Bcx NTD Probable PNA -08/15 CXR: New right infrahilar/basilar airspace opacity which may represent worsening atelectasis/edema or consolidation. -08/21 CXR: Lung volumes are low. Bronchovascular markings are prominent. Heart size is prominent. Bones are osteopenic. Extensive heterotopic bone about the right glenohumeral joint noted. 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 Will continue to follow along with you. Subjective Allergies: Coded Allergies: HYDROMORPHONE (Unverified Allergy, Unknown, 01/04/18) Subjective Tmax 100 Tachycardic to 128 WBC 13 Nonverbal Objective Vital Signs Last 24 Hour Vital Signs Date Time Temp Pulse Resp B/P (MAP) Pulse Ox O2 Delivery O2 Flow Rate FiO2 08/21/19 16:00 98.9 114 20 144/80 (101) 97 08/21/19 12:00 98.8 110 20 148/79 (102) 98 08/21/19 09:00 Room Air 08/21/19 08:54 100.0 08/21/19 08:24 128 131/73 08/21/19 08:18 100 18 96 Room Air 21 08/21/19 08:00 100.0 128 20 131/73 (92) 98 08/21/19 04:00 98.1 110 22 137/78 (97) 96 08/21/19 00:00 98.1 100 22 137/78 (97) 98 08/20/19 20:33 88 18 94 Room Air 21 08/20/19 20:00 98.1 100 20 144/93 (110) 97 08/20/19 18:09 Room Air Height (Feet): 6 Height (Inches): 0.00 Weight (Pounds): 138 Objective Gen: NAD CV: tachycardic Resp: nonlabored Abd: soft. normoactive BS+ RUE: drainage site covered by dressing Psych: calm Microbiology Date/Time Source Procedure Growth Status 08/20/19 13:00 Sputum Induced Gram Stain - Final Resulted 08/20/19 13:00 Sputum Induced Sputum Culture Pending Resulted 08/20/19 06:00 Indwelling Cath Urine Culture - Preliminary NO GROWTH Resulted 08/20/19 06:50 Shoulder Right Gram Stain - Final Resulted 08/20/19 06:50 Shoulder Right Wound Culture Pending Resulted Laboratory Tests Test 08/20/19 22:00 08/21/19 07:33 Vancomycin Level Trough 21.4 ug/mL (5.0-12.0) H White Blood Count 13.1 K/UL (4.8-10.8) #H Red Blood Count 3.61 M/UL (4.70-6.10) L Hemoglobin 11.9 G/DL (14.2-18.0) L Hematocrit 35.6 % (42.0-52.0) L Mean Corpuscular Volume 99 FL (80-99) Mean Corpuscular Hemoglobin 32.9 PG (27.0-31.0) H Mean Corpuscular Hemoglobin Concent 33.4 G/DL (32.0-36.0) Red Cell Distribution Width 12.4 % (11.6-14.8) Platelet Count 618 K/UL (150-450) H Mean Platelet Volume 6.4 FL (6.5-10.1) L Neutrophils (%) (Auto) % (45.0-75.0) Lymphocytes (%) (Auto) % (20.0-45.0) Monocytes (%) (Auto) % (1.0-10.0) Eosinophils (%) (Auto) % (0.0-3.0) Basophils (%) (Auto) % (0.0-2.0) Differential Total Cells Counted 100 Neutrophils % (Manual) 91 % (45-75) H Lymphocytes % (Manual) 4 % (20-45) L Monocytes % (Manual) 4 % (1-10) Eosinophils % (Manual) 0 % (0-3) Basophils % (Manual) 0 % (0-2) Band Neutrophils 1 % (0-8) Platelet Estimate Increased H Platelet Morphology Normal Red Blood Cell Morphology Normal Sodium Level 139 MMOL/L (136-145) Potassium Level 3.6 MMOL/L (3.5-5.1) Chloride Level 101 MMOL/L (98-107) Carbon Dioxide Level 29 MMOL/L (21-32) Anion Gap 9 mmol/L (5-15) Blood Urea Nitrogen 11 mg/dL (7-18) Creatinine 0.7 MG/DL (0.55-1.30) Estimat Glomerular Filtration Rate mL/min (>60) Glucose Level 135 MG/DL (74-106) H Calcium Level 9.3 MG/DL (8.5-10.1) Current Medications Medications (Trade) Dose Ordered Sig/Nelson Route PRN Reason Start Time Stop Time Status Last Admin Dose Admin Acetaminophen (Tylenol) 650 mg Q4H PRN GT Mild Pain/Temp > 100.5 08/18/19 03:15 09/15/19 03:44 08/21/19 08:24 Albuterol/ Ipratropium (Albuterol/ Ipratropium) 3 ml Q4H PRN HHN Shortness of Breath 08/19/19 15:00 08/22/19 18:59 Amlodipine Besylate (Norvasc) 5 mg DAILY GT 08/18/19 09:00 09/15/19 08:59 08/21/19 08:24 Baclofen (Lioresal) 5 mg THREE TIMES A DAY GT 08/18/19 09:00 09/15/19 08:59 08/21/19 14:50 Cefepime HCl 2 gm/ Dextrose 110 ml @ 220 mls/hr Q24H IV 08/18/19 10:00 08/23/19 09:59 08/21/19 11:09 Dextrose (Dextrose 50%) 25 ml Q30M PRN IV Hypoglycemia 08/19/19 11:15 09/18/19 11:14 Dextrose (Dextrose 50%) 50 ml Q30M PRN IV Hypoglycemia 08/19/19 11:15 09/18/19 11:14 Heparin Sodium (Porcine) (Heparin 5000 units/ml) 5,000 units EVERY 12 HOURS SUBQ 08/18/19 09:00 09/15/19 08:59 08/21/19 08:33 Insulin Aspart (NovoLOG) BEFORE MEALS AND HS SUBQ 08/19/19 11:30 09/18/19 11:29 08/21/19 16:41 Nitroglycerin (Ntg) 0.4 mg Q5M PRN SL Prn Chest Pain 08/18/19 00:00 09/15/19 06:59 Ondansetron HCl (Zofran) 4 mg Q6H PRN IVP Nausea & Vomiting 08/18/19 01:00 09/15/19 06:59 Polyethylene Glycol (Miralax) 17 gm DAILYPRN PRN ORAL Constipation 08/18/19 07:00 09/15/19 06:59 Sodium Chloride 1,000 ml @ 75 mls/hr [id number] IV 08/20/19 00:00 09/15/19 06:56 08/21/19 16:19 Tamsulosin HCl (Flomax) 0.4 mg BEDTIME ORAL 08/18/19 21:00 09/15/19 20:59 08/20/19 21:14 Temazepam (Restoril) 15 mg HSPRN PRN ORAL Insomnia 08/18/19 07:00 08/23/19 06:59 Vancomycin HCl (Vanco rx to dose) 1 ea DAILY PRN MISC . 08/18/19 09:00 09/15/19 07:14 Vancomycin HCl 750 mg/Dextrose 275 ml @ 184 mls/hr Q12H IVPB 08/21/19 11:00 08/26/19 10:59 08/21/19 11:00 Garret Black MD Aug 21, 2019 17:44
--- NOTE | 2019-08-21 19:20 | NUR ---
HAND-OFF: Report given to Maribel HILL.
[2019-08-21 20:00] VITALS: BP 126/84
--- NOTE | 2019-08-21 20:00 | NUR ---
NURSE NOTES: Received patient awake in bed, unable to verbalize needs but responds to pain. G tube noted with continuous feeding, no residual. Suction at the bedside. P200 mattress, bed low and locked. IV access patent running IVF maintenance at 75ml/hr. Will monitor blood glucose closely.
[2019-08-21] MEDS: Tamsulosin 0.4mg cap ORAL SCH (20:13)
[2019-08-21] MEDS: Piperacillin/Tazobactam 3.375 GM in NS 110 ML IVPB SCH (20:45)
[2019-08-22] VITALS: BP 137/89
--- NOTE | 2019-08-22 03:53 | NUR ---
HAND-OFF: Report given to SERGIO Mittal and SERGIO Garcia.
[2019-08-22 04:00] VITALS: BP 134/86
--- NOTE | 2019-08-22 04:16 | NUR ---
NURSE NOTES: Resumed care. Pt was congested, HOB was elevated more. GTF pump was beeping with occlusion. About to flush patient and check residual but Patient suddenly projectile vomited moderate amount of tube feeding formula, no blood seen. Patient was orally and NT suctioned. GTF held at this time. Improved. Abdomen soft nondistended. GT dressing changed. Dressing on left elbow soiled, changed. Patient had soft BM, collected for Cdiff as ordered, sacral dressing changed. Benavidez anchored on left thigh. Patient HOB >30degrees and monitoring closely. Rechecked residual, no residual left on GT.
[2019-08-22] MEDS: Piperacillin/Tazobactam 3.375 GM in NS 110 ML IVPB SCH ×2 (05:53→14:22)
[2019-08-22] MEDS: NovoLOG Insulin Flexpen SUBQ SCH ×3 (06:08→17:01)
--- NOTE | 2019-08-22 06:49 | NUR ---
NURSE NOTES: Left message to Dr. Abbasi regarding patient's vomiting, increased congestion, and loose GTube disc.
[2019-08-22 07:07] LABS: HEMATOCRIT 33.8 % (42.0-52.0); HEMOGLOBIN 11.2 G/DL (14.2-18.0); MEAN CORPUSCULAR VOLUME 98 FL (80-99); PLATELET COUNT 603 K/UL (150-450); RED BLOOD COUNT 3.44 M/UL (4.70-6.10); WHITE BLOOD COUNT 12.4 K/UL (4.8-10.8)
--- NOTE | 2019-08-22 07:15 | NUR ---
NURSE NOTES: I received the patient resting in bed. Patient alert to name only. Patient does not display any signs of distress or SOB. Bed in the lowest position and call light within reach. I will continue to monitor the patient and implement care.
--- NOTE | 2019-08-22 07:28 | NUR ---
HAND-OFF: Report given to Roxanne HILL.
[2019-08-22 07:40] LABS: ALANINE AMINOTRANSFERASE 68 U/L (12-78); ALBUMIN 2.2 G/DL (3.4-5.0); ALBUMIN/GLOBULIN RATIO 0.4 (1.0-2.7); ALKALINE PHOSPHATASE 90 U/L (46-116); ANION GAP 7 mmol/L (5-15); ASPARTATE AMINO TRANSFERASE 41 U/L (15-37); BILIRUBIN,TOTAL 0.3 MG/DL (0.2-1.0); BLOOD UREA NITROGEN 10 mg/dL (7-18); CALCIUM 9.2 MG/DL (8.5-10.1); CARBON DIOXIDE 29 MMOL/L (21-32); CHLORIDE 101 MMOL/L (98-107); CREATININE 0.6 MG/DL (0.55-1.30); POTASSIUM 3.4 MMOL/L (3.5-5.1); SODIUM 137 MMOL/L (136-145)
[2019-08-22 08:00] VITALS: BP 122/73
[2019-08-22] MEDS: Heparin 5000 units/ml inj SUBQ SCH (08:37)
[2019-08-22] MEDS: Vancomycin 750 MG in D5W 275 ML IVPB SCH (10:56)
[2019-08-22 12:00] VITALS: BP 119/71
--- NOTE | 2019-08-22 13:09 | GI Initial Consult Note ---
History of Present Illness General Date patient seen: Aug 22, 2019 Time patient seen: 13:03 Reason for Hospitalization: Fever Referring physician: JURGEN MONCADA Reason for Consultation: GT MALFUNCTION/LEAKAGE Present Illness HPI Patient is a 79-year-old male brought in by EMS after increased fever from fpc. Patient was noted to have some prior history of chronic debilitation. He began having fever up to 103 degrees. Prior history of BPH osteoarthritis muscle wasting G-tube dependence. Patient was noted to have pulsed with DNR status. Per patient's daughter laboratory testing and antibiotics are okay. GI consulted for reported G-tube leakage and malfunction, and one episode of emesis. Patient seen, awake alert no apparent distress. ROS limited, patient unable to provide any history at this time. Gastrostomy tube was assessed, noted that the retention ring was not firmly in place. No leakage noted at the time of evaluation, no erythema noted, no drainage. Dressing was clean dry and intact. Labs reviewed; WBC 12.4, hemoglobin 11.2, hematocrit 33.8, platelet count 603, no transaminitis. Unknown history of colonoscopy. Home Meds Active Scripts Clotrimazole (Clotrimazole) 15 Gm Cream..g., 1 GM TP TID, #60 GM 1 Refill Prov:NoccatherineCarey P.A. 08/14/15 Cephalexin (Cephalexin) 500 Mg Cap, 500 MG GT QID, #40 CAP Prov:AlcidesCarey P.A. 08/14/15 Trimethoprim/Sulfamethoxazole (Bactrim Ds Tablet) 1 Ea Tab, 1 TAB ORAL TWICE A DAY, #20 TAB Prov:NoccatherineCarey P.A. 08/14/15 Trimethoprim/Sulfamethoxazole 160/800* (BACTRIM DS TABLET*) 1 Each Tablet, 1 TAB ORAL Q12H, #14 TAB Prov:Yusuf Merchant MD 04/26/14 Reported Medications Cefepime Hcl/D5w (CEFEPIME-DEXTROSE 2 GM/50 ML) 2 Gm/50 Ml Piggyback, 2 GM IVPB EVERY 12 HOURS for 7 Days, BAG 01/09/18 Atorvastatin Calcium* (ATORVASTATIN CALCIUM*) 20 Mg Tablet, 20 MG ORAL BEDTIME, TAB 01/09/18 Codeine/Promethazine Hcl* (PROMETHAZINE-CODEINE SYRUP*) 118 Ml Syrup, 5 ML ORAL Q4H PRN for For Cough, ML 0 Refills 01/09/18 Lansoprazole* (LANSOPRAZOLE*) 30 Mg Capsule.dr, 30 MG GT DAILY, CAP 01/09/18 Theophylline (THEODUR*) 100 Mg Tab.er.12h, 100 MG ORAL Q12HR, #30 TAB 0 Refills 01/09/18 Diclofenac Sod* (VOLTAREN*) 25 Mg Tablet.dr, 2 GM TP THREE TIMES A DAY, TAB 01/04/18 Bisacodyl* (DULCOLAX*) 5 Mg Tablet.dr, 10 MG RC NEEDED, #4 TAB 0 Refills 01/04/18 Gabapentin* (GABAPENTIN*) 100 Mg Capsule, 250 MG GT THREE TIMES A DAY, CAP 01/04/18 Magnesium Hydroxide* (MILK OF MAGNESIA*) 400 Mg/5 Ml Oral.susp, 30 ML GT DAILY, ML 01/04/18 Tamsulosin Hcl (TAMSULOSIN HCL*) 0.4 Mg Cap.er.24h, 0.4 MG GT BEDTIME, CAP 01/04/18 Finasteride* (PROSCAR*) 5 Mg Tablet, 5 MG GT DAILY, #30 TAB 0 Refills 01/04/18 Chloraseptic [place] (Sm Sore Throat [place]) 177 Ml [place], 5 SPRAY ORAL EVERY 2 HOURS, SPRAY 01/04/18 Acetaminophen* (TYLENOL EXTRA STRENGTH*) 500 Mg Tablet, 325 MG GT Q6H PRN for Mild Pain/Temp > 100.5, TAB 0 Refills 01/04/18 Acetaminophen With Codeine (T#3) (TYLENOL #3 TAB*) Y Tab, 1 TAB ORAL Q6H PRN for For Pain, TAB 01/04/18 Doxycycline Hyclate* (VIBRAMYCIN*) 100 Mg Capsule, 100 MG GT EVERY 12 HOURS, # 14 CAP 0 Refills 01/04/18 Omeprazole (OMEPRAZOLE) 20 Mg Capsule.dr, 20 MG GT DAILY, CAP 01/04/18 Baclofen* (BACLOFEN*) 10 Mg Tablet, 5 MG GT THREE TIMES A DAY, TAB 01/04/18 Docusate Sodium* (DOCUSATE SODIUM*) 100 Mg Capsule, 100 MG GT BID for Constipation, CAP 01/04/18 Rosuvastatin Calcium* (CRESTOR*) 20 Mg Tablet, 20 MG GT BEDTIME, TAB 01/04/18 Multivitamin with Minerals (Multivitamins with Minerals) 1 Each Tablet, 1 TAB GT DAILY, TAB 01/04/18 Lactobacillus Acidophilus (ACIDOPHILUS PROBIOTIC) 0.5 Mg Tablet, 1 MG PO, TAB 01/04/18 Ipratropium Simpson 0.5MG/2.5ML (IPRATROPIUM BROMIDE 0.5MG/2.5ML) 0.2 Mg/1 Ml Solution, 0.5 MG HHN Q6H PRN for Shortness of Breath, #28 EA 01/04/18 Clopidogrel Bisulfate* (PLAVIX*) 75 Mg Tablet, 75 MG GT DAILY, TAB 01/04/18 Sennosides (SENNA) 8.6 Mg Tablet, 8.6 MG GT DAILY for Constipation, TAB 01/04/18 Acetaminophen With Codeine (T#3) (TYLENOL #3 TAB*) Y Tab, 1 TAB ORAL Q4H PRN for For Pain, TAB 02/24/16 Vit B Complex 100 Cmb #3/Herbs (BALANCED B-100 TABLET) 100 Mg Tablet, 100 MG PO , TAB 02/24/16 Ergocalciferol (Vitamin D2)* (VITAMIN D*) 50,000 Unit Capsule, 62265 UNIT ORAL ONCE A WEEK, CAP 02/24/16 Dronabinol* (MARINOL*) 2.5 Mg Capsule, 2.5 MG ORAL THREE TIMES A DAY, #15 CAP 0 Refills 01/18/15 Clobetasol Propionate/Emoll (CLOBETASOL EMOLLIENT 0.05% CRM) 15 Gm Cream..g., 15 GM TP BID, GM 01/14/15 Doxycycline Hyclate* (VIBRAMYCIN*) 100 Mg Capsule, 100 MG ORAL BID, #14 CAP 0 Refills 01/14/14 Amlodipine Besylate* (AMLODIPINE BESYLATE*) 5 Mg Tablet, 5 MG PO DAILY, #10 TAB Take one tablet by mouth daily 08/07/12 Losartan Potassium* (COZAAR*) 50 Mg Tablet, 50 MG PO DAILY, #20 TAB Take 1 tablet by mouth every 12 hours. 08/07/12 Gabapentin* (NEURONTIN*) 600 Mg Tablet, 600 MG PO Q8H, #20 TAB Take 1 tablet by mouth every 8 hours. 08/07/12 Med list reviewed/reconciled: Yes Allergies: Coded Allergies: HYDROMORPHONE (Unverified Allergy, Unknown, 01/04/18) Patient History Limited by: medical condition History Provided By: Medical Record PMH Narrative Past Medical History: see triage record Reviewed Nursing Documentation: PMH: Agreed; PSxH: Agreed Nursing Documentation-PM Past Medical History: No History, Except For Hx Cardiac Problems: Yes Hx Hypertension: Yes Hx Diabetes: Yes Hx Cancer: No Hx Gastrointestinal Problems: No Hx Neurological Problems: No Hx Cerebrovascular Accident: Yes - Left upper extremity contracture, right leg contracture Hx Dementia: Yes Hx Weakness: Yes Hx Neurologic Surgery: Yes - c4-c5 infusion Review of Systems All Other Systems: limited Physical Exam Vital Signs Date Time Temp Pulse Resp B/P (MAP) Pulse Ox O2 Delivery O2 Flow Rate FiO2 08/18/19 08:00 97.9 97 20 135/72 (93) 98 08/18/19 08:45 Room Air 08/19/19 12:15 21 Sp02 EP Interpretation: reviewed, normal Labs Laboratory Tests Test 08/22/19 05:37 White Blood Count 12.4 K/UL (4.8-10.8) H Red Blood Count 3.44 M/UL (4.70-6.10) L Hemoglobin 11.2 G/DL (14.2-18.0) L Hematocrit 33.8 % (42.0-52.0) L Mean Corpuscular Volume 98 FL (80-99) Mean Corpuscular Hemoglobin 32.4 PG (27.0-31.0) H Mean Corpuscular Hemoglobin Concent 33.0 G/DL (32.0-36.0) Red Cell Distribution Width 13.0 % (11.6-14.8) Platelet Count 603 K/UL (150-450) H Mean Platelet Volume 6.4 FL (6.5-10.1) L Neutrophils (%) (Auto) % (45.0-75.0) Lymphocytes (%) (Auto) % (20.0-45.0) Monocytes (%) (Auto) % (1.0-10.0) Eosinophils (%) (Auto) % (0.0-3.0) Basophils (%) (Auto) % (0.0-2.0) Differential Total Cells Counted 100 Neutrophils % (Manual) 90 % (45-75) H Lymphocytes % (Manual) 2 % (20-45) L Monocytes % (Manual) 7 % (1-10) Eosinophils % (Manual) 1 % (0-3) Basophils % (Manual) 0 % (0-2) Band Neutrophils 0 % (0-8) Platelet Estimate Increased H Platelet Morphology Normal Sodium Level 137 MMOL/L (136-145) Potassium Level 3.4 MMOL/L (3.5-5.1) L Chloride Level 101 MMOL/L (98-107) Carbon Dioxide Level 29 MMOL/L (21-32) Anion Gap 7 mmol/L (5-15) Blood Urea Nitrogen 10 mg/dL (7-18) Creatinine 0.6 MG/DL (0.55-1.30) Estimat Glomerular Filtration Rate mL/min (>60) Glucose Level 165 MG/DL (74-106) H Calcium Level 9.2 MG/DL (8.5-10.1) Total Bilirubin 0.3 MG/DL (0.2-1.0) Aspartate Amino Transf (AST/SGOT) 41 U/L (15-37) H Alanine Aminotransferase (ALT/SGPT) 68 U/L (12-78) Alkaline Phosphatase 90 U/L (46-116) Pro-B-Type Natriuretic Peptide 383 pg/mL (0-125) H Total Protein 8.4 G/DL (6.4-8.2) H Albumin 2.2 G/DL (3.4-5.0) L Globulin 6.2 g/dL Albumin/Globulin Ratio 0.4 (1.0-2.7) L General Appearance: well appearing, no apparent distress, alert Head: normocephalic EENT: PERRL/EOMI, normal ENT inspection Neck: supple Respiratory: normal breath sounds, no respiratory distress Cardiovascular: normal rate Gastrointestinal: normal inspection, non tender, soft, normal bowel sounds, non -distended, gt - As noted in HPI Rectal: deferred Genitourinary: deferred Musculoskeletal: normal inspection, back normal Neurologic: alert, responsive Skin: normal inspection, normal color, no rash, warm/dry, palpation normal, well hydrated Lymphatic: normal inspection, no adenopathy Current Medications Current Medications Medications (Trade) Dose Ordered Sig/Nelson Route PRN Reason Start Time Stop Time Status Last Admin Dose Admin Acetaminophen (Tylenol) 650 mg Q4H PRN GT Mild Pain/Temp > 100.5 08/18/19 03:15 09/15/19 03:44 08/21/19 08:24 Albuterol/ Ipratropium (Albuterol/ Ipratropium) 3 ml Q4H PRN HHN Shortness of Breath 08/19/19 15:00 08/22/19 18:59 Amlodipine Besylate (Norvasc) 5 mg DAILY GT 08/18/19 09:00 09/15/19 08:59 08/22/19 08:36 Baclofen (Lioresal) 5 mg THREE TIMES A DAY GT 08/18/19 09:00 09/15/19 08:59 08/22/19 12:32 Dextrose (Dextrose 50%) 25 ml Q30M PRN IV Hypoglycemia 08/19/19 11:15 09/18/19 11:14 Dextrose (Dextrose 50%) 50 ml Q30M PRN IV Hypoglycemia 08/19/19 11:15 09/18/19 11:14 Heparin Sodium (Porcine) (Heparin 5000 units/ml) 5,000 units EVERY 12 HOURS SUBQ 08/18/19 09:00 09/15/19 08:59 08/22/19 08:37 Insulin Aspart (NovoLOG) BEFORE MEALS AND HS SUBQ 08/19/19 11:30 09/18/19 11:29 08/22/19 12:33 Nitroglycerin (Ntg) 0.4 mg Q5M PRN SL Prn Chest Pain 08/18/19 00:00 09/15/19 06:59 Ondansetron HCl (Zofran) 4 mg Q6H PRN IVP Nausea & Vomiting 08/18/19 01:00 09/15/19 06:59 Piperacillin Sod/ Tazobactam Sod 3.375 gm/Sodium Chloride 110 ml @ 27.5 mls/hr EVERY 8 HOURS IVPB 08/21/19 22:00 08/26/19 21:59 08/22/19 05:53 Polyethylene Glycol (Miralax) 17 gm DAILYPRN PRN ORAL Constipation 08/18/19 07:00 09/15/19 06:59 Sodium Chloride 1,000 ml @ 75 mls/hr [id number] IV 08/20/19 00:00 09/15/19 06:56 08/22/19 05:49 Tamsulosin HCl (Flomax) 0.4 mg BEDTIME ORAL 08/18/19 21:00 09/15/19 20:59 08/21/19 20:13 Temazepam (Restoril) 15 mg HSPRN PRN ORAL Insomnia 08/18/19 07:00 08/23/19 06:59 Vancomycin HCl (Vanco rx to dose) 1 ea DAILY PRN MISC . 08/18/19 09:00 09/15/19 07:14 Vancomycin HCl 750 mg/Dextrose 275 ml @ 184 mls/hr Q12H IVPB 08/21/19 11:00 08/26/19 10:59 08/22/19 10:56 GI: Plan Problems: (1) Malfunction of gastrostomy tube (2) At high risk for aspiration (3) History of CVA (cerebrovascular accident) (4) Advanced dementia (5) G tube feedings (6) Failure to thrive (7) Anemia Plan This is a 79-year-old male patient, with history of CVA with G-tube dependency presents with a reported G-tube malfunction and G-tube leakage. In addition, it was reported that the patient had one episode of emesis. Gastrostomy tube assessed noted the retention ring was not firmly clamped to the abdomen. The gastrostomy tube was readjusted. Monitor gastrostomy tube for any signs symptoms of leakage, GT site care daily and as needed. Okay to continue feedings. It was reported that the G-tube feedings were tolerated. We will order Reglan as needed for GI motility if patient continues to have emesis. Monitor H&H, PRN transfusions PPI We will follow along on a daily basis with additional recommendations. Discussed with Dr. Thompson. Thank you for this patient referral, we will follow. The patient was seen and examined at bedside and all new and available data was reviewed in the patients chart. I agree with the above findings, impression and plan. (Patient seen earlier today. Signature stamp does not reflect patient encounter time.). - MD Valeri Obregon,[employer] Aug 22, 2019 13:09
[2019-08-22] MEDS ORDERED: Metoclopramide 10mg/2ml Inj IVP PRN (13:12)
[2019-08-22] MEDS ORDERED: VANCOMYCIN1 GM/2002 IV (13:14)
[2019-08-22] MEDS ORDERED: ZOSYN 3.373.375 GM/1 IVPB (13:14)
--- NOTE | 2019-08-22 13:16 | Pulmonology Progress Note ---
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 repeat cbc in am cxr done yesterday, no new infiltrate dc planning soon Subjective ROS Limited/Unobtainable: No Constitutional: Reports: no symptoms HEENT: Repors: no symptoms Respiratory: Reports: no symptoms Allergies: Coded Allergies: HYDROMORPHONE (Unverified Allergy, Unknown, 01/04/18) Objective Last 24 Hour Vital Signs Date Time Temp Pulse Resp B/P (MAP) Pulse Ox O2 Delivery O2 Flow Rate FiO2 08/22/19 12:00 98.2 110 20 119/71 (87) 96 08/22/19 09:00 Room Air 08/22/19 08:36 145 122/73 08/22/19 08:00 97.7 145 18 122/73 (89) 94 08/22/19 07:55 110 20 96 Room Air 21 08/22/19 04:00 98.8 115 21 134/86 (102) 94 08/22/19 00:00 99.0 117 19 137/89 (105) 95 08/21/19 21:21 Room Air 08/21/19 20:00 98.7 114 19 126/84 (98) 97 08/21/19 19:18 82 18 95 Room Air 21 08/21/19 16:00 98.9 114 20 144/80 (101) 97 Intake and Output 08/21/19 08/22/19 19:00 07:00 Intake Total 600 ml 1322.5 ml Output Total 2300 ml Balance 600 ml -977.5 ml Intake Free Water 120 ml IV Total 702.5 ml Tube Feeding 600 ml 500 ml Output Urine Total 2000 ml Emesis 300 ml # Bowel Movements 1 General Appearance: WD/WN HEENT: normocephalic, atraumatic, PERRL Respiratory/Chest: chest wall non-tender, lungs clear Cardiovascular: normal peripheral pulses, normal rate Abdomen: normal bowel sounds, soft, non tender Genitourinary: normal external genitalia Skin: no rash Neurologic/Psychiatric: porcelain mixer II-XII grossly normal Microbiology Date/Time Source Procedure Growth Status 08/20/19 13:00 Sputum Induced Gram Stain - Final Resulted 08/20/19 13:00 Sputum Culture - Preliminary Gram Negative Bacillus 1 Resulted 08/22/19 04:00 Stool Clostridium difficile Toxin Assay - Final Complete 08/20/19 06:00 Indwelling Cath Urine Culture - Preliminary NO GROWTH AFTER 24 HOURS Resulted 08/20/19 06:50 Shoulder Right Gram Stain - Final Resulted 08/20/19 06:50 Shoulder Right Wound Culture Pending Resulted Laboratory Tests 08/22/19 05:37: White Blood Count 12.4H, Red Blood Count 3.44L, Hemoglobin 11.2L, Hematocrit 33.8L, Mean Corpuscular Volume 98, Mean Corpuscular Hemoglobin 32.4H, Mean Corpuscular Hemoglobin Concent 33.0, Red Cell Distribution Width 13.0, Platelet Count 603H, Mean Platelet Volume 6.4L, Neutrophils (%) (Auto) , Lymphocytes (%) (Auto) , Monocytes (%) (Auto) , Eosinophils (%) (Auto) , Basophils (%) (Auto) , Differential Total Cells Counted 100, Neutrophils % (Manual) 90H, Lymphocytes % (Manual) 2L, Monocytes % (Manual) 7, Eosinophils % (Manual) 1, Basophils % ( Manual) 0, Band Neutrophils 0, Platelet Estimate IncreasedH, Platelet Morphology Normal, Sodium Level 137, Potassium Level 3.4L, Chloride Level 101, Carbon Dioxide Level 29, Anion Gap 7, Blood Urea Nitrogen 10, Creatinine 0.6, Estimat Glomerular Filtration Rate , Glucose Level 165H, Calcium Level 9.2, Total Bilirubin 0.3, Aspartate Amino Transf (AST/SGOT) 41H, Alanine Aminotransferase (ALT/SGPT) 68, Alkaline Phosphatase 90, Pro-B-Type Natriuretic Peptide 383H, Total Protein 8.4H, Albumin 2.2L, Globulin 6.2, Albumin/Globulin Ratio 0.4L Current Medications Medications (Trade) Dose Ordered Sig/Nelson Route PRN Reason Start Time Stop Time Status Last Admin Dose Admin Acetaminophen (Tylenol) 650 mg Q4H PRN GT Mild Pain/Temp > 100.5 08/18/19 03:15 09/15/19 03:44 08/21/19 08:24 Albuterol/ Ipratropium (Albuterol/ Ipratropium) 3 ml Q4H PRN HHN Shortness of Breath 08/19/19 15:00 08/22/19 18:59 Amlodipine Besylate (Norvasc) 5 mg DAILY GT 08/18/19 09:00 09/15/19 08:59 08/22/19 08:36 Baclofen (Lioresal) 5 mg THREE TIMES A DAY GT 08/18/19 09:00 09/15/19 08:59 08/22/19 12:32 Dextrose (Dextrose 50%) 25 ml Q30M PRN IV Hypoglycemia 08/19/19 11:15 09/18/19 11:14 Dextrose (Dextrose 50%) 50 ml Q30M PRN IV Hypoglycemia 08/19/19 11:15 09/18/19 11:14 Heparin Sodium (Porcine) (Heparin 5000 units/ml) 5,000 units EVERY 12 HOURS SUBQ 08/18/19 09:00 09/15/19 08:59 08/22/19 08:37 Insulin Aspart (NovoLOG) BEFORE MEALS AND HS SUBQ 08/19/19 11:30 09/18/19 11:29 08/22/19 12:33 Metoclopramide HCl (Reglan) 10 mg Q8H PRN IVP high residuals of GT over 150c 08/22/19 13:12 09/21/19 13:11 Nitroglycerin (Ntg) 0.4 mg Q5M PRN SL Prn Chest Pain 08/18/19 00:00 09/15/19 06:59 Ondansetron HCl (Zofran) 4 mg Q6H PRN IVP Nausea & Vomiting 08/18/19 01:00 09/15/19 06:59 Piperacillin Sod/ Tazobactam Sod 3.375 gm/Sodium Chloride 110 ml @ 27.5 mls/hr EVERY 8 HOURS IVPB 08/21/19 22:00 08/26/19 21:59 08/22/19 05:53 Polyethylene Glycol (Miralax) 17 gm DAILYPRN PRN ORAL Constipation 08/18/19 07:00 09/15/19 06:59 Sodium Chloride 1,000 ml @ 75 mls/hr [id number] IV 08/20/19 00:00 09/15/19 06:56 08/22/19 05:49 Tamsulosin HCl (Flomax) 0.4 mg BEDTIME ORAL 08/18/19 21:00 09/15/19 20:59 08/21/19 20:13 Temazepam (Restoril) 15 mg HSPRN PRN ORAL Insomnia 08/18/19 07:00 08/23/19 06:59 Vancomycin HCl (Vanco rx to dose) 1 ea DAILY PRN MISC . 08/18/19 09:00 09/15/19 07:14 Vancomycin HCl 750 mg/Dextrose 275 ml @ 184 mls/hr Q12H IVPB 08/21/19 11:00 08/26/19 10:59 08/22/19 10:56 Sowmya Abbasi MD Aug 22, 2019 13:16
--- NOTE | 2019-08-22 14:42 | NUR ---
DISCHARGE PLANNED DISCHARGE ORDER NOTED PATIENT IS RETURNING TO [facility] ROOM 19A SKILLED T: [phone] FOR NURSE TO NURSE REPORT [facility] HAS BEEN ARRANGED FOR [address]
--- NOTE | 2019-08-22 15:16 | Infectious Diseases Prog Note ---
Assessment/Plan Assessment/Plan Assessment: Sepsis R shoulder abscess -08/15 SP I+D (on ED)-removal of 20-30 mL of foul smelling purulent material ; cx were not sent -08/20 wound cx: GNR and GPC -08/22 CT shoulder: P Gram positive bacteremia- could be real given abscess -08/15 Bcx 2/4 S. capitis; 08/16 Bcx NTD Probable PNA -08/15 CXR: New right infrahilar/basilar airspace opacity which may represent worsening atelectasis/edema or consolidation. -08/21 sputum cx: GNR -08/21 CXR: Lung volumes are low. Bronchovascular markings are prominent. Heart size is prominent. Bones are osteopenic. Extensive heterotopic bone about the right glenohumeral joint noted. 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 Will continue to follow along with you. Subjective Allergies: Coded Allergies: HYDROMORPHONE (Unverified Allergy, Unknown, 01/04/18) Subjective Afebrile. on RA. Leukocytosis improved. Tachycardia improved. Pt is calmer today. Objective Vital Signs Last 24 Hour Vital Signs Date Time Temp Pulse Resp B/P (MAP) Pulse Ox O2 Delivery O2 Flow Rate FiO2 08/22/19 12:00 98.2 110 20 119/71 (87) 96 08/22/19 09:00 Room Air 08/22/19 08:36 145 122/73 08/22/19 08:00 97.7 145 18 122/73 (89) 94 08/22/19 07:55 110 20 96 Room Air 21 08/22/19 04:00 98.8 115 21 134/86 (102) 94 08/22/19 00:00 99.0 117 19 137/89 (105) 95 08/21/19 21:21 Room Air 08/21/19 20:00 98.7 114 19 126/84 (98) 97 08/21/19 19:18 82 18 95 Room Air 21 08/21/19 16:00 98.9 114 20 144/80 (101) 97 Height (Feet): 6 Height (Inches): 0.00 Weight (Pounds): 138 Objective Gen: NAD CV: tachycardic Resp: nonlabored Abd: soft. normoactive BS+ RUE: drainage site covered by dressing Psych: calm Microbiology Date/Time Source Procedure Growth Status 08/20/19 13:00 Sputum Induced Gram Stain - Final Resulted 08/20/19 13:00 Sputum Culture - Preliminary Gram Negative Bacillus 1 Resulted 08/22/19 04:00 Stool Clostridium difficile Toxin Assay - Final Complete 08/20/19 06:00 Indwelling Cath Urine Culture - Preliminary NO GROWTH AFTER 24 HOURS Resulted 08/20/19 06:50 Shoulder Right Gram Stain - Final Resulted 08/20/19 06:50 Shoulder Right Wound Culture Pending Resulted Laboratory Tests Test 08/22/19 05:37 White Blood Count 12.4 K/UL (4.8-10.8) H Red Blood Count 3.44 M/UL (4.70-6.10) L Hemoglobin 11.2 G/DL (14.2-18.0) L Hematocrit 33.8 % (42.0-52.0) L Mean Corpuscular Volume 98 FL (80-99) Mean Corpuscular Hemoglobin 32.4 PG (27.0-31.0) H Mean Corpuscular Hemoglobin Concent 33.0 G/DL (32.0-36.0) Red Cell Distribution Width 13.0 % (11.6-14.8) Platelet Count 603 K/UL (150-450) H Mean Platelet Volume 6.4 FL (6.5-10.1) L Neutrophils (%) (Auto) % (45.0-75.0) Lymphocytes (%) (Auto) % (20.0-45.0) Monocytes (%) (Auto) % (1.0-10.0) Eosinophils (%) (Auto) % (0.0-3.0) Basophils (%) (Auto) % (0.0-2.0) Differential Total Cells Counted 100 Neutrophils % (Manual) 90 % (45-75) H Lymphocytes % (Manual) 2 % (20-45) L Monocytes % (Manual) 7 % (1-10) Eosinophils % (Manual) 1 % (0-3) Basophils % (Manual) 0 % (0-2) Band Neutrophils 0 % (0-8) Platelet Estimate Increased H Platelet Morphology Normal Sodium Level 137 MMOL/L (136-145) Potassium Level 3.4 MMOL/L (3.5-5.1) L Chloride Level 101 MMOL/L (98-107) Carbon Dioxide Level 29 MMOL/L (21-32) Anion Gap 7 mmol/L (5-15) Blood Urea Nitrogen 10 mg/dL (7-18) Creatinine 0.6 MG/DL (0.55-1.30) Estimat Glomerular Filtration Rate mL/min (>60) Glucose Level 165 MG/DL (74-106) H Calcium Level 9.2 MG/DL (8.5-10.1) Total Bilirubin 0.3 MG/DL (0.2-1.0) Aspartate Amino Transf (AST/SGOT) 41 U/L (15-37) H Alanine Aminotransferase (ALT/SGPT) 68 U/L (12-78) Alkaline Phosphatase 90 U/L (46-116) Pro-B-Type Natriuretic Peptide 383 pg/mL (0-125) H Total Protein 8.4 G/DL (6.4-8.2) H Albumin 2.2 G/DL (3.4-5.0) L Globulin 6.2 g/dL Albumin/Globulin Ratio 0.4 (1.0-2.7) L Current Medications Medications (Trade) Dose Ordered Sig/Nelson Route PRN Reason Start Time Stop Time Status Last Admin Dose Admin Acetaminophen (Tylenol) 650 mg Q4H PRN GT Mild Pain/Temp > 100.5 08/18/19 03:15 09/15/19 03:44 08/21/19 08:24 Albuterol/ Ipratropium (Albuterol/ Ipratropium) 3 ml Q4H PRN HHN Shortness of Breath 08/19/19 15:00 08/22/19 18:59 Amlodipine Besylate (Norvasc) 5 mg DAILY GT 08/18/19 09:00 09/15/19 08:59 08/22/19 08:36 Baclofen (Lioresal) 5 mg THREE TIMES A DAY GT 08/18/19 09:00 09/15/19 08:59 08/22/19 12:32 Dextrose (Dextrose 50%) 25 ml Q30M PRN IV Hypoglycemia 08/19/19 11:15 09/18/19 11:14 Dextrose (Dextrose 50%) 50 ml Q30M PRN IV Hypoglycemia 08/19/19 11:15 09/18/19 11:14 Heparin Sodium (Porcine) (Heparin 5000 units/ml) 5,000 units EVERY 12 HOURS SUBQ 08/18/19 09:00 09/15/19 08:59 08/22/19 08:37 Insulin Aspart (NovoLOG) BEFORE MEALS AND HS SUBQ 08/19/19 11:30 09/18/19 11:29 08/22/19 12:33 Metoclopramide HCl (Reglan) 10 mg Q8H PRN IVP high residuals of GT over 150c 08/22/19 13:12 09/21/19 13:11 Nitroglycerin (Ntg) 0.4 mg Q5M PRN SL Prn Chest Pain 08/18/19 00:00 09/15/19 06:59 Ondansetron HCl (Zofran) 4 mg Q6H PRN IVP Nausea & Vomiting 08/18/19 01:00 09/15/19 06:59 Piperacillin Sod/ Tazobactam Sod 3.375 gm/Sodium Chloride 110 ml @ 27.5 mls/hr EVERY 8 HOURS IVPB 08/21/19 22:00 08/26/19 21:59 08/22/19 14:22 Polyethylene Glycol (Miralax) 17 gm DAILYPRN PRN ORAL Constipation 08/18/19 07:00 09/15/19 06:59 Sodium Chloride 1,000 ml @ 75 mls/hr [id number] IV 08/20/19 00:00 09/15/19 06:56 08/22/19 05:49 Tamsulosin HCl (Flomax) 0.4 mg BEDTIME ORAL 08/18/19 21:00 09/15/19 20:59 08/21/19 20:13 Temazepam (Restoril) 15 mg HSPRN PRN ORAL Insomnia 08/18/19 07:00 08/23/19 06:59 Vancomycin HCl (Vanco rx to dose) 1 ea DAILY PRN MISC . 08/18/19 09:00 09/15/19 07:14 Vancomycin HCl 750 mg/Dextrose 275 ml @ 184 mls/hr Q12H IVPB 08/21/19 11:00 08/26/19 10:59 08/22/19 10:56 Garret Black MD Aug 22, 2019 15:16
--- NOTE | 2019-08-22 15:44 | NUR ---
NURSE NOTES: Wound care completed and wound care pictures taken for discharge. Report given to Loreto knight [facility].
[2019-08-22 16:00] VITALS: BP 123/70
--- NOTE | 2019-08-22 16:14 | Diagnostic Imaging Report ---
Indication: Right shoulder pain, sepsis, history of incision and drainage of right shoulder abscess Technique: No IV contrast, per referring physician request. Spiral acquisitions obtained through the right shoulder Multiplanar reconstructions were generated. Total dose length product 724 mGycm. CTDIvol(s) 24 mGy. Radiation dose was minimized using automated exposure control Comparison: none Findings: There is a soft tissue defect in the soft tissues of the posterior upper shoulder adjacent and posterolateral to the scapular spine. This presumably relates to residual gas and open wound from prior incision and drainage procedure. No definite discrete fluid collection demonstrated, although evaluation for such is limited in the absence of IV contrast administration. There is marked skin thickening in this area. There is some induration of the subcutaneous fat in this area. There is very mild infiltration of the subcutaneous fat of the upper back and proximal arm. There is marked chronic appearing bony abnormality. Heterotopic new bone bridges the glenoid process of the scapula and ankyloses it with the proximal humeral shaft. No definite osteolytic lesion is demonstrated. No definite osseous erosion. No joint effusion. There are abundant but not frankly enlarged axillary nodes incidentally noted. The included lungs demonstrate some posterior dependent atelectatic changes. There is evidence of prior cervical spine fusion surgery. Syndesmophytes are seen along the course of the thoracic spine. Impression: Open wound in the left posterior shoulder/lateral upper back region, presumably related to stated clinical history of recent incision and drainage No definite soft tissue fluid collection to suggest abscess. Note, however, that evaluation for such is limited in the absence of IV contrast demonstration Extensive chronic abnormality of the right shoulder, with a large bridge of heterotopic new bone bridging and ankylosing the scapula and proximal humerus. Thoracic syndesmophytes, appearance suggestive of ankylosing spondylitis The CT scanner at [facility] is accredited by the [employer] and the scans are performed using protocols designed to limit radiation exposure to as low as reasonably achievable to attain images of sufficient resolution adequate for diagnostic evaluation.
--- NOTE | 2019-08-22 19:15 | NUR ---
HAND-OFF: Report given to Alexander Atkinson RN.
--- NOTE | 2019-08-22 19:30 | NUR ---
NURSE NOTES: Received patient in no apparent distress. A&OX1, non verbal. IV site patent and intact. G-tube in place, running Osmolite 1.5, 50cc/hr, 0cc residual noted, flushed, elevated HOB. Benavidez draining well by gravity, yellow urine noted. Bed in lowest position. Call light within reach. Will continue to monitor.
[2019-08-22 20:00] VITALS: BP 129/72
[2019-08-22] MEDS ORDERED: NS 275ml ONE (20:29)
[2019-08-22] MEDS ORDERED: Tubing IV Secondary IV ONE (20:29)
[2019-08-22] MEDS ORDERED: 1/2 NS 1000ml IV ONE (20:29)
--- NOTE | 2019-08-22 20:32 | NUR ---
NURSE NOTES: Patient discharged [facility] with stable condition. ID band removed. Patient discharged with IV for continue IV antibiotic medication, Benavidez cath, and G-tube. Patient has no belongings. Picked up by ambulance staff.
--- NOTE | 2019-08-23 15:31 | Cardiology Report ---
APPROVED REPORT EKG Measurement Heart [id number] Sinus tachycardia with premature supraventricular complexes Low voltage QRS Borderline ECG
--- NOTE | 2019-08-24 08:19 | Discharge Summary ---
Discharge Summary Discharge Summary _ DATE OF ADMISSION: 08/15/2019 DATE OF DISCHARGE: 08/22/2019 DISCHARGED BY: Dr. Abbasi REASON FOR ADMISSION: 79 years old male with past medical history of multiply CVA, dysphagia, feeding by G-tube, bedbound, was brought from the shelter facility by EMS with chief complaint of fever. Patient was with DNR/DNI status. Fever reported up to 103 at the facility. On clinical examination, patient was found to have a large skin abscess in the right shoulder. Patient's daughter was consented to incision and drainage. Incision and drainage subsequently was performed by emergency room physician yielding large amount of foul-smelling purulent material. Patient tolerated procedure well. Upon evaluation laboratory work-up revealed no leukocytosis, hemoglobin 10.8 hematocrit 32.3, platelet count 261. Lactic acid 2.4. Stable electrolytes. BUN 24, creatinine 0.8. Troponin 0.022. ProBNP 874. Albumin 2.0. EKG revealed sinus rhythm, no acute ischemic changes. Chest x-ray demonstrated new right infrahilar basilar airspace opacity, possibly representing worsening atelectasis/edema or consolidation. Patient subsequently admitted for further management. CONSULTANTS: ID specialist Dr. Zaragoza GI specialist Dr. Thompson [facility] COURSE: Patient admitted to medical surgical floor. Patient started on IV fluid and empiric antibiotic . DVT prophylaxis provided. Pain management was addressed as needed. Blood culture initially revealed Staph capitis and Staph coagulase negative , which could be real as per ID specialist, given the right shoulder abscess. Urine culture was negative. Repeated blood culture on were negative. Wound culture revealed Staph coagulase negative and Proteus mirabilis. Sputum culture revealed Klebsiella ESBL and Pseudomonas Stool for C. difficile was negative. Antibiotic regimen was optimized as per ID specialist recommendation. Supplemental oxygen and pulmonary toilet with bronchodilator provided as needed. Strict aspiration precautions were maintained. G-tube feeding continued. Patient was followed-up with chest x-ray . Blood pressure was managed with calcium channel nolan. Blood sugar was managed with sliding scale of insulin , as needed. hemoglobin A1c 5.6. Potassium was replaced and stable after replacement. Bowel regimen instituted. Supportive care provided. GI specialist consulted for G-tube malfunction and leakage. Patient had one episode of emesis. Gastrostomy tube was assessed by GI specialist and noted that the retention ring was not firmly clamped to the abdomen. The gastrostomy tube was readjusted. No further evidence of leakage. G-tube site care provided daily. Tube feeding to goal rate as well as the protein supplement implemented in plan of care as per instrument and control service person recommendation.. Strict aspiration precaution maintained. GI prophylaxis with PPI provided. Hemoglobin and hematocrit were closely monitored with goal to keep hemoglobin above 7. Hemoglobin and hematocrit remained at the baseline. Prior to discharge hemoglobin 11.2, hematocrit 33.8. CT of the right shoulder revealed open wound in the right posterior shoulder /lateral upper back region, related to recent incision and drainage. No definite soft tissue fluid collection to suggest abscess. Extensive chronic abnormality of the right shoulder. Thoracic syndesmophytes, appearance suggestive of ankylosing spondylitis Infectious disease specialist recommended additional 5 days of vancomycin and Zosyn upon discharge. Fevers resolved. Patient clinically stabilized and was ready for transfer to shelter facility for continuation of care. FINAL DIAGNOSES: Sepsis Gram-positive bacteremia Right shoulder abscess, status post I&D in emergency department Probably pneumonia Aspiration risk Protein calorie malnutrition Anemia Hypertension Diabetes mellitus History of multiply CVA with aphasia and quadriparesis, left more than right Dysphagia , feeding by G-tube G tube malfunctioning , status post readjustment Advanced dementia DISCHARGE MEDICATIONS: See Medication Reconciliation list. DISCHARGE INSTRUCTIONS: Patient was discharged to the shelter facility. Follow up with medical doctor at the facility. Tiera Pat NP Aug 24, 2019 08:19
== END 2019-08-22 20:30 | DRG 871 ==
LOC: EDBD 20:16 → EMR 21:07 → 2E 21:25 → UNDODISIN 22:00 → EDBEDREQ 22:47 → 4E 08-17 23:46
PROC: 0H9BXZZ Drainage of Right Upper Arm Skin, External Approach (ICD-10-PCS; principal; 2019-08-15)
DX: A41.9 Sepsis, unspecified organism (principal); J18.9 Pneumonia, unspecified organism; G82.50 Quadriplegia, unspecified; Z43.1 Encounter for attention to gastrostomy; L02.413 Cutaneous abscess of right upper limb; E46 Unspecified protein-calorie malnutrition; Z88.6 Allergy status to analgesic agent; I69.320 Aphasia following cerebral infarction; I69.365 Other paralytic syndrome following cerebral infarction, bilateral; F03.90 Unspecified dementia, unspecified severity, without behavioral disturbance, psychotic disturbance, mood disturbance, and anxiety; Z66 Do not resuscitate; R13.10 Dysphagia, unspecified; Z98.1 Arthrodesis status; N40.0 Benign prostatic hyperplasia without lower urinary tract symptoms; E11.9 Type 2 diabetes mellitus without complications; M19.90 Unspecified osteoarthritis, unspecified site
CPT/HCPCS: 36415; 71045; 80048; 80053; 80202; 81003; 82550; 82553; 82962; 83036; 83605; 83880; 84484; 85007; 85025; 87040; 87070; 87081; 87086; 87181; 87205; 87324; 93005; 94664; 96361; 96365; 96366; 96368; 97802; 99285; J1815; J7030; J8499

== ENCOUNTER 2019-09-06 13:32 | Inpatient (IN) | payer MEDICARE, OTHER ==
[~2019-09-06] VITALS: Ht 180.3 cm; Wt 74.0 kg
[~2019-09-06 13:32] MED LIST changes: +ACETAMINOPHEN-1 EAC1 GT; +VANCOMYCIN1 GM/2002 IV; +ZOSYN 3.373.375 GM/1 IVPB
--- NOTE | 2019-09-06 13:35 | NUR ---
ED Nurse Note: Patient brought into ED from [facility] RA 58 due to desatting to 85% for 3 days. per ems and daughter patient has been "uncontrollably" coughing and having increased phlegm for 1 week. patient upon arrival 92% on RA. patient placed on a toll test worker, patient changed into a gown, patient noted to have a gtube. patient has a polst- DNR.
[2019-09-06 14:07] LABS: HEMATOCRIT 36.5 % (42.0-52.0); HEMOGLOBIN 11.7 G/DL (14.2-18.0); MEAN CORPUSCULAR VOLUME 101 FL (80-99); PLATELET COUNT 292 K/UL (150-450); RED BLOOD COUNT 3.61 M/UL (4.70-6.10); RED CELL DISTRIBUTION WIDTH 13.4 % (11.6-14.8); WHITE BLOOD COUNT 3.3 K/UL (4.8-10.8)
[2019-09-06] MEDS ORDERED: ALBUTEROL2.5 MG/3 M INH (14:15)
[2019-09-06] MEDS ORDERED: cefTRIAXone 1 GM in NS 55 ML IVPB ONE (14:15)
[2019-09-06] MEDS ORDERED: BACLOFEN10 MG GT (14:15)
[2019-09-06] MEDS ORDERED: Azithromycin 500 MG in NS 275 ML IV ONE (14:15)
[2019-09-06] MEDS ORDERED: CEFEPIME-D2 GM/50 ML IVPB (14:15)
[2019-09-06] MEDS ORDERED: NITRO0.4 SL (14:15)
[2019-09-06] MEDS ORDERED: Vancomycin 1 GM in NS 275 ML IVPB ONE (14:15)
[2019-09-06] MEDS ORDERED: AMLODIPINE BESYL5 MG GT (14:15)
[2019-09-06] MEDS ORDERED: HEPARIN SO5000 UNIT2 SUBQ (14:15)
[2019-09-06 14:17] LABS: ANION GAP 11 mmol/L (5-15); BLOOD UREA NITROGEN 26 mg/dL (7-18); CALCIUM 8.8 MG/DL (8.5-10.1); CARBON DIOXIDE 27 MMOL/L (21-32); CHLORIDE 104 MMOL/L (98-107); CREATININE 0.8 MG/DL (0.55-1.30); POTASSIUM 4.3 MMOL/L (3.5-5.1); SODIUM 141 MMOL/L (136-145)
--- NOTE | 2019-09-06 14:17 | Emergency Room Report ---
History of Present Illness General Chief Complaint: Dyspnea/Respdistress Source: Family Member, Medical Record, EMS Present Illness HPI This patient presents from a [facility] facility. He has a history of multiple chronic medical problems. He has a history of CVA with contractions, quadriplegia, G-tube dependent. He has a recent admission to [facility] for fever and had a large skin abscess and was found to have bacteremia. The patient was admitted and underwent IV antibiotics. The patient presents today from the [facility]dc facility because of 2 days of decreased oxygen saturations at the fdc facility. Patient's oxygen saturations had dropped into the low 90s. There was also report of cough. The patient's CODE STATUS is DO NOT RESUSCITATE. Allergies: Coded Allergies: HYDROMORPHONE (Unverified Allergy, Unknown, 01/04/18) Patient History Past Medical History: see triage record, DM, HTN, [place], CAD, CVA/TIA - quadraplegia, global aphasia, contractures. Past Surgical History: other - Cervical spine surgery, G-tube Social History: Denies: smoking, alcohol use, drug use Reviewed Nursing Documentation: PMH: Agreed; PSxH: Agreed Nursing Documentation-PMH Past Medical History: No History, Except For Hx Cardiac Problems: Yes Hx Hypertension: Yes Hx Diabetes: Yes Hx Cancer: No Hx Gastrointestinal Problems: No Hx Neurological Problems: No Hx Cerebrovascular Accident: Yes - Left upper extremity contracture, right leg contracture Hx Dementia: Yes Hx Weakness: Yes Hx Neurologic Surgery: Yes - c4-c5 infusion Review of Systems All Other Systems: negative except mentioned in HPI Physical Exam Vital Signs Date Time Temp Pulse Resp B/P (MAP) Pulse Ox O2 Delivery O2 Flow Rate FiO2 09/06/19 13:28 99.1 84 18 117/72 (87) 94 Room Air Sp02 EP Interpretation: reviewed, normal General Appearance: no apparent distress, alert, GCS 15, non-toxic Head: normocephalic, atraumatic Eyes: bilateral eye normal inspection, bilateral eye PERRL ENT: normal ENT inspection Neck: full range of motion, supple/symm/no masses Respiratory: chest non-tender, no respiratory distress, no retraction, no accessory muscle use, rhonchi Cardiovascular #1: no edema, tachycardia Gastrointestinal: non tender, soft, non-distended, no guarding, no rebound, other - G-tube in place Rectal: deferred Musculoskeletal: other - contracted. Neurologic: alert, aphasia, other - Quadraplegia (at baseline) Psychiatric: mood/affect normal Skin: other - See RN skin exam Medical Decision Making Diagnostic Impression: Primary Impression: Healthcare-associated pneumonia ER Course This patient has a left lower lobe pneumonia. He did maintain normal oxygen saturations with 2 L of nasal cannula. He was given broad-spectrum antibiotics and I did review the microbiology sputum report from 2 weeks ago and this did show EBSL growth. Therefore, I did add ertapenem to the patient's IV antibiotic regimen. The patient was given IV fluids, kept on 2 L nasal cannula and given broad-spectrum antibiotics and admitted for further IV antibiotics and further evaluation and treatment. Laboratory Tests Test 09/06/19 13:45 09/06/19 14:00 White Blood Count 3.3 K/UL (4.8-10.8) L Red Blood Count 3.61 M/UL (4.70-6.10) L Hemoglobin 11.7 G/DL (14.2-18.0) L Hematocrit 36.5 % (42.0-52.0) L Mean Corpuscular Volume 101 FL (80-99) H Mean Corpuscular Hemoglobin 32.4 PG (27.0-31.0) H Mean Corpuscular Hemoglobin Concent 32.1 G/DL (32.0-36.0) Red Cell Distribution Width 13.4 % (11.6-14.8) Platelet Count 292 K/UL (150-450) Mean Platelet Volume 7.6 FL (6.5-10.1) Neutrophils (%) (Auto) % (45.0-75.0) Lymphocytes (%) (Auto) % (20.0-45.0) Monocytes (%) (Auto) % (1.0-10.0) Eosinophils (%) (Auto) % (0.0-3.0) Basophils (%) (Auto) % (0.0-2.0) Neutrophils % (Manual) Pending Lymphocytes % (Manual) Pending Platelet Estimate Pending Platelet Morphology Pending Sodium Level 141 MMOL/L (136-145) Potassium Level 4.3 MMOL/L (3.5-5.1) Chloride Level 104 MMOL/L (98-107) Carbon Dioxide Level 27 MMOL/L (21-32) Anion Gap 11 mmol/L (5-15) Blood Urea Nitrogen 26 mg/dL (7-18) H Creatinine 0.8 MG/DL (0.55-1.30) Estimate Glomerular Filtration Rate mL/min (>60) Glucose Level 107 MG/DL (74-106) H Calcium Level 8.8 MG/DL (8.5-10.1) Total Bilirubin 0.5 MG/DL (0.2-1.0) Aspartate Amino Transferase (AST) 26 U/L (15-37) Alanine Aminotransferase (ALT) 14 U/L (12-78) Alkaline Phosphatase 72 U/L (46-116) Total Protein 8.8 G/DL (6.4-8.2) H Albumin 2.6 G/DL (3.4-5.0) L Globulin 6.2 g/dL Albumin/Globulin Ratio 0.4 (1.0-2.7) L Arterial Blood pH 7.457 (7.350-7.450) Arterial Blood Partial Pressure CO2 36.1 mmHg (35.0-45.0) Arterial Blood Partial Pressure O2 57.3 mmHg (75.0-100.0) L Arterial Blood HCO3 24.9 mmol/L (22.0-26.0) Arterial Blood Oxygen Saturation 89.7 % (95-100) *L Arterial Blood Base Excess 1.3 (-2-2) Golden Test Positive EKG Diagnostic Results Rate: tachycardiac Rhythm: other - S.tachycardia ST Segments: no acute changes Rhythm Strip Diag. Results EP Interpretation: yes Rate: 100's Rhythm: no PVC's, no ectopy, other - S.tachycardia Chest X-Ray Diagnostic Results Chest X-Ray Diagnostic Results : Chest X-Ray Ordered: Yes # of Views/Limited/Complete: 1 View Indication: Shortness of Breath EP Interpretation: Yes Interpretation: other - LLL opacity Impression: Other - Opacity c/w LLL PNA Last Vital Signs Date Time Temp Pulse Resp B/P (MAP) Pulse Ox O2 Delivery O2 Flow Rate FiO2 09/06/19 13:28 99.1 84 18 117/72 (87) 94 Room Air Disposition: ADMITTED INPATIENT Condition: Serious Referrals: Segun Armando MD (PCP) Thelma Yeung DO Sep 06, 2019 14:17
[2019-09-06] MEDS ORDERED: TEMAZEPAM15 MG GT (14:18)
[2019-09-06] MEDS ORDERED: POLYETHYLENE GL17 GM GT (14:18)
[2019-09-06 14:22] LABS: ALANINE AMINOTRANSFERASE 14 U/L (12-78); ALBUMIN 2.6 G/DL (3.4-5.0); ALBUMIN/GLOBULIN RATIO 0.4 (1.0-2.7); ALKALINE PHOSPHATASE 72 U/L (46-116); ASPARTATE AMINO TRANSFERASE 26 U/L (15-37); BILIRUBIN,TOTAL 0.5 MG/DL (0.2-1.0)
--- NOTE | 2019-09-06 14:25 | Diagnostic Imaging Report ---
Indication: Dyspnea Comparison: 08/21/2019 A single view chest radiograph was obtained. Findings: There is a patchy infiltrate at the left lung base. Hilar vessels are mildly prominent. No overt CHF demonstrated. Lung volumes are low. Evaluation is limited by rotation. IMPRESSION: Pneumonia versus atelectasis at the left lung base.
[2019-09-06 14:47] VITALS: BP 144/91
[2019-09-06] MEDS ORDERED: Ertapenem 1 GM in NS 55 ML IV ONE (15:00)
[2019-09-06] MEDS ORDERED: Albuterol/Ipratropium 3ml neb HHN PRN ×2 (16:00→17:45)
[2019-09-06] MEDS ORDERED: Nitroglycerin Subl 0.4mg tab SL PRN (16:00)
[2019-09-06] MEDS ORDERED: Miralax 17gm pkt ORAL PRN ×2 (16:00→17:45)
--- NOTE | 2019-09-06 16:35 | NUR ---
ED Nurse Note: report given to Dinorah HILL. endorsed all plan of care including wound care given to Dinorah HILL.
--- NOTE | 2019-09-06 16:47 | NUR ---
ED Nurse Note: patient transferred to with SERGIO Guevara and early learning teacherOfelia Donahue in stable condition.
--- NOTE | 2019-09-06 16:50 | NUR ---
Pt belongings with patient for transfer to Tele floor. Pictures of ulcers taken and input. Bee HILL given report. 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
--- NOTE | 2019-09-06 17:00 | NUR ---
NURSE NOTES: Received report from SERGIO Roach in ED. Pt brought via gurney to 221-2. Pt is nonverbal with g-tube site, unable to answer questions all information obtained from pack from SNF and from pt's daughter Sweta, pt is contracted and has multiple wounds. photos taken of all wounds and dressings applied, vitals obtained and assessment done, see flowsheets. tele box applied to pt, pt cleaned and changed into hospital gown. Pt placed on 2L NC and Vanco administered in ED still running. Bed in lowest position, call light with pt and daughter.
[2019-09-06] MEDS ORDERED: Miralax 17gm pkt GT PRN (18:15)
--- NOTE | 2019-09-06 19:47 | NUR ---
HAND-OFF: Report given to SERGIO Freeman. Plan of care endorsed.
--- NOTE | 2019-09-06 19:50 | NUR ---
NURSE NOTES: Received pt from SERGIO Copeland. Pt awake but non verbal. Bed in lowest position. Call light within reach. Will continue to monitor.
[2019-09-06 20:00] VITALS: BP 129/79
[2019-09-06] MEDS ORDERED: NovoLOG Insulin Flexpen SUBQ SCH (21:00)
[2019-09-06] MEDS ORDERED: Tamsulosin 0.4mg cap ORAL SCH (21:00)
[2019-09-06] MEDS ORDERED: Cefepime HCl 1 GM in D5W 55 ML IV SCH (21:00)
[2019-09-06] MEDS: Gabapentin 300 MG/6 ML Soln GT SCH (21:01)
[2019-09-06] MEDS: Acetaminophen 650mg/20.3ml GT PRN (21:02)
[2019-09-06] MEDS: Cefepime HCl 1 GM in D5W 55 ML IV SCH (21:03)
[2019-09-06] MEDS: Heparin 5000 units/ml inj SUBQ SCH (21:13)
[2019-09-07] VITALS: BP 139/84
[2019-09-07 04:00] VITALS: BP 133/70
[2019-09-07] MEDS: Vancomycin 1.25gm/NS Premix q24h IVPB SCH ×2 (05:17→17:26)
[2019-09-07] MEDS: Acetaminophen 650mg/20.3ml GT PRN ×2 (05:18→12:20)
[2019-09-07] MEDS: NovoLOG Insulin Flexpen SUBQ SCH ×4 (06:23→17:35)
[2019-09-07 06:45] LABS: HEMOGLOBIN 11.1 G/DL (14.2-18.0); MEAN CORPUSCULAR VOLUME 100 FL (80-99); PLATELET COUNT 252 K/UL (150-450); RED BLOOD COUNT 3.39 M/UL (4.70-6.10); RED CELL DISTRIBUTION WIDTH 13.9 % (11.6-14.8); WHITE BLOOD COUNT 6.2 K/UL (4.8-10.8)
--- NOTE | 2019-09-07 06:53 | NUR ---
NURSE NOTES: Called and left a message with Dr. Abbasi regarding pts fever all night. Awaiting call back.
[2019-09-07 07:03] LABS: ALBUMIN 2.3 G/DL (3.4-5.0); ANION GAP 10 mmol/L (5-15); BLOOD UREA NITROGEN 19 mg/dL (7-18); CALCIUM 8.3 MG/DL (8.5-10.1); CARBON DIOXIDE 25 MMOL/L (21-32); CHLORIDE 108 MMOL/L (98-107); CREATININE 0.7 MG/DL (0.55-1.30); PHOSPHORUS 1.9 MG/DL (2.5-4.9); POTASSIUM 3.6 MMOL/L (3.5-5.1); SODIUM 143 MMOL/L (136-145)
--- NOTE | 2019-09-07 07:34 | NUR ---
HAND-OFF: Report given to SERGIO Espinosa. Pt stable.
--- NOTE | 2019-09-07 07:53 | NUR ---
NURSE NOTES: Received patient in lying comfortably in bed. patient is awake nods and shakes head to questions at times. tracks and focuses when spoken to. patient with cooling blanket on rectal temp 101.5. no signs and symptoms of distress. will monitor patient al throughout shift.
[2019-09-07 08:00] VITALS: BP 114/67
[2019-09-07] MEDS: Gabapentin 300 MG/6 ML Soln GT SCH ×3 (08:38→17:27)
[2019-09-07] MEDS: Cefepime HCl 1 GM in D5W 55 ML IV SCH ×2 (08:38→22:04)
[2019-09-07] MEDS: Heparin 5000 units/ml inj SUBQ SCH ×2 (08:40→22:31)
--- NOTE | 2019-09-07 10:13 | NUR ---
ST NOTES: REFERRED FOR SWALLOW EVAL BY DR MARCUM, SEE FULL REPORT. DYSPHAGIA RISK FACTORS FOR THIS 79 Y.O.M.: ACUTE ISSUES: DYSPNEA, RESPIRATORY DISTRESS, DESAT 2 DAYS AGO, SEPSIS, PNA PER ER: LUNGS HAVE PNA VERSUS ATELECTASIS AT LEFT LUNG BASE; PER RADIOLOGIST: L LL OPACITY C/W LL PNA. H/O ADVANCED AGE, PNA AND SEPSIS 2018, FTT AND BULIMIA (2015),GERD (ON MEDS AT SNF ONLY), DYSPHAGIA AND HAD GT ? 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 AT SNF, ONLY ON PEG FEEDINGS OF OSMOLITE. NO OFFICE MESSENGER NOR ORAL GRAT DOCUMENTATION SEEN. CURRENTLY NO PO. ALERT AND MOUTHBREATHING (RR 18 ON 2 LITERS NC) NONVERBAL/VOCAL CAN FOLLOW SOME ORAL COMMANDS. RESP RATE 18 THROUGHOUT TRIAL. INITIAL IMPRESSIONS: HIGH RISK FOR A SIGNIFICANT OROPHARYNGEAL DYSPHAGIA TONGUE PROTRUDES TO THE RIGHT, FAIR ROM ALL DIRECTIONS, FAIR STRENGTH, SLOW SPEED. EDENTULOUS. NO NEED TO SUCTION ORAL SECRETIONS, DID NOT IMITATE COUGH NOR VOICE. GIVEN TSP NECTAR THICK LIQUIDS WATER TO ASSESS ABILITY TO TOLERATE MOD BARIUM SWALLOW STUDY. TONGUE DID NOT MOVE AP FOR SEVERAL MINUTES EVEN WITH MAX VISUAL/VERBAL/TACTILE CUES. FAIR LIP CLOSURE WITH SPOON INITIALLY, THEN HAD ORAL SPILLAGE ON RIGHT SIDE OF MOUTH WITH RIGHT LABIAL WEAKNESS NOTED. BOLUS SUCTIONED FROM LATERAL SULCI AND BACK OF THROAT WITH SOME YELLOWISH THICK PHLEGM. HAS HIGH SILENT ASPIRATION RISK DUE TO CVA/DEMENTIA HX AND HAD A PNA NOW. RECOMMENDATIONS: CONTINUE WITH NONORAL FEEDINGS AND ORAL CARE/SUCTION CONSIDER COMPLETING MOD BARIUM SWALLOW STUDY TO FURTHER ASSESS SWALLOW, DETERMINE SILENT ASPIRATION RISK/ETIOLOGY, AND ATTEMPT TRIAL TX CONSIDER LARGER BOLUS FOR A BOLUS EFFECT SINCE TSP MAY NOT BE ENOUGH TO SENSORY INFORMATION TO TRIGGER OP MOVEMENT. SKILLED DYSPHAGIA MANAGEMENT AND TX AND COG-COM EVAL/TX EDUCATED/TRAINED RN (NATALIYA) AND [employer] INFRASTRUCTURE CONSULTANT (LUCINDA) IN ORAL CARE/SUCTION NEEDS AND ASP PRECAUTIONS WHEN PEG FEEDINGS RUNNING.
--- NOTE | 2019-09-07 11:00 | NUR ---
NURSE NOTES: Message left to Dr. Abbasi re: positive blood culture results. awaiting call back./
[2019-09-07 12:00] VITALS: BP 132/81
--- NOTE | 2019-09-07 13:45 | NUR ---
RD ASSESSMENT & RECOMMENDATIONS SEE CARE ACTIVITY FOR COMPLETE ASSESSMENT DAILY ESTIMATED NEEDS: Needs based on cardiac, wound healing, DM/ 70kg 25-30 kcals/kg 7034-0542 total kcals 1.25-1.5 g protein/kg 87-105 g total protein 25-30 mL/kg 1218-9700 total fluid mLs NUTRITION DIAGNOSIS: * Swallowing difficulty R/T dysphagia as evidenced by pt PEG dependent. * Increased Kcal and pro needs r/t wound healing as evidenced by pt admitted w/ multiple wound photos (lt elbow, lt heel, rt shoulder, sacrum), pending evaluation. * Altered nutrition related lab values R/T h/o DM as evidenced by elev POC glu ([phone]), on NISS. CURRENT TF:Osmolite 1.5 @ 50ml/hr x20 hrs ENTERAL NUTRITION RECOMMENDATIONS: Glucerna 1.5 @ 50ml/hr x 24 hrs to provide 1200ml, 1800kcal, 99g prot, 911ml free water * Rec TF change to carb controlled TF of Glucerna 1.5 (H/o DM, pt on NISS) * Initiate Glucerna 1.5 @ 20ml/hr x 6hrs, advance 10ml q 4-6 hrs as tolerated to goal rate. * HOB over 30 degrees * Water flush of 250ml q 6hrs ADDITIONAL RECOMMENDATIONS: * Calibrated bedscale wt for accurate CBW EMR wt= 175# vs bedscale wt 09/0796=330.78# * Check A1C for eval of glycemic control: h/o DM -> Rec TF change to carb controlled TF of Glucerna 1.5 (See above) * Monitor lytes, replete as needed * Wound healing: add Vit C 250mg QD : add Phillip 1pkt BID : f/up WC eval
--- NOTE | 2019-09-07 14:00 | NUR ---
NURSE NOTES:WOUND CARE NOTES:Pt presented on admission with full thickness wounds R scapula. (L)0.5cm x (W)2cm x (D)0.9cm. Wound is incision from I and D previous admission. Small amt purulent exudate noted .Periwound without erythema or induration. Full thickness pressure injury L elbow (L)1.4cm x (W)1.3cm. Base of wound has 50% slough ,50% santy. Periwound darker skin tone without induration noted. Small amt sanguineus exudate. No odor noted. Hyperpigmentation with scarring noted to sacrum. Historical scar noted to L heel. R heel boggy with non-blanching erythema. Tx.Plan: Apply Moisture Barrier paste to sacrum. Cover with Optifoam drsg. Change every 3 days and prn. Apply Cavilon Skin Barrier to both heels. Cover each heel with Optifoam drsg. Change every 7 days and prn. Reposition at least every 2hours or as tolerated. Off-load heels with pillow.
--- NOTE | 2019-09-07 14:11 | History and Physical ---
History of Present Illness General Date patient seen: Sep 07, 2019 Reason for Hospitalization: Dyspnea/Respdistress Present Illness HPI 79-year-old male with hx of multiple CVA, Gtube feeding, bedbound, fpc resident brought in to ER by EMS with CC of hypoxemia. Patient was noted to be DNR. His CXR showed pneumonia and he is admitted to telemetry for further management. Pt is awake, not responding to questions. and has contractures. Allergies: Coded Allergies: HYDROMORPHONE (Unverified Allergy, Unknown, 01/04/18) Medication History Scheduled Amlodipine Besylate* (Amlodipine Besylate*), 5 MG PO DAILY, (Reported) Amlodipine Besylate* (Amlodipine Besylate*), 5 MG GT DAILY, (Reported) Atorvastatin Calcium* (Atorvastatin Calcium*), 20 MG ORAL BEDTIME, (Reported) Baclofen* (Baclofen*), 5 MG GT THREE TIMES A DAY, (Reported) Baclofen* (Baclofen*), 5 MG GT THREE TIMES A DAY, (Reported) Bisacodyl* (Dulcolax*), 10 MG RC NEEDED, (Reported) Cefepime Hcl/D5w (Cefepime-Dextrose 2 Gm/50 Ml), 2 GM IVPB EVERY 12 HOURS, ( Reported) Cefepime Hcl/D5w (Cefepime-Dextrose 2 Gm/50 Ml), 2 GM IVPB Q24H, (Reported) Cephalexin (Cephalexin), 500 MG GT QID Chloraseptic [place] (Sm Sore Throat [place]), 5 SPRAY ORAL EVERY 2 HOURS, (Reported ) Clobetasol Propionate/Emoll (Clobetasol Emollient 0.05% Crm), 15 GM TP BID, ( Reported) Clopidogrel Bisulfate* (Plavix*), 75 MG GT DAILY, (Reported) Clotrimazole (Clotrimazole), 1 GM TP TID Diclofenac Sod* (Voltaren*), 2 GM TP THREE TIMES A DAY, (Reported) Docusate Sodium* (Docusate Sodium*), 100 MG GT BID, (Reported) Doxycycline Hyclate* (Vibramycin*), 100 MG ORAL BID, (Reported) Doxycycline Hyclate* (Vibramycin*), 100 MG GT EVERY 12 HOURS, (Reported) Dronabinol* (Marinol*), 2.5 MG ORAL THREE TIMES A DAY, (Reported) Ergocalciferol (Vitamin D2)* (Vitamin D*), 50,000 UNIT ORAL ONCE A WEEK, ( Reported) Finasteride* (Proscar*), 5 MG GT DAILY, (Reported) Gabapentin* (Neurontin*), 600 MG PO Q8H, (Reported) Gabapentin* (Gabapentin*), 250 MG GT THREE TIMES A DAY, (Reported) Heparin Sod (Porcine) (Heparin Sodium*), 5,000 UNITS SUBQ EVERY 12 HOURS, ( Reported) Lansoprazole* (Lansoprazole*), 30 MG GT DAILY, (Reported) Losartan Potassium* (Cozaar*), 50 MG PO DAILY, (Reported) Magnesium Hydroxide* (Milk Of Magnesia*), 30 ML GT DAILY, (Reported) Multivitamin with Minerals (Multivitamins with Minerals), 1 TAB GT DAILY, ( Reported) Omeprazole (Omeprazole), 20 MG GT DAILY, (Reported) Ssmnivnkuvgf-Qdrc-Egwnymzo,Iso (Zosyn 3.375 Gm Pre Mix-Bag), 3.375 GM IVPB EVERY 8 HOURS Polyethylene Glycol 3350* (Polyethylene Glycol 3350*), 17 GM GT DAILY, (Reported ) Rosuvastatin Calcium* (Crestor*), 20 MG GT BEDTIME, (Reported) Sennosides (Senna), 8.6 MG GT DAILY, (Reported) Tamsulosin Hcl (Tamsulosin Hcl*), 0.4 MG GT BEDTIME, (Reported) Temazepam (Temazepam*), 15 MG GT BEDTIME, (Reported) Theophylline (Theodur*), 100 MG ORAL Q12HR, (Reported) Trimethoprim/Sulfamethoxazole (Bactrim Ds Tablet), 1 TAB ORAL TWICE A DAY Trimethoprim/Sulfamethoxazole 160/800* (Bactrim Ds Tablet*), 1 TAB ORAL Q12H Vancomycin/Water For Inj (Peg) (Vancomycin 1 Gram/200 ml Bag), 0.75 GM IV EVERY 12 HOURS Scheduled PRN Acetaminophen With Codeine (T#3) (Tylenol #3 Tab*), 650 MG GT Q4H PRN for For Pain, (Reported) Acetaminophen With Codeine (T#3) (Tylenol #3 Tab*), 1 TAB ORAL Q6H PRN for For Pain, (Reported) Acetaminophen* (Tylenol Extra Strength*), 650 MG GT Q4HR PRN for Mild Pain/Temp > 100.5, (Reported) Albuterol Sulfate* (Albuterol Sulfate Hhn*), 3 ML INH Q4H PRN for Shortness of Breath, (Reported) Codeine/Promethazine Hcl* (Promethazine-Codeine Syrup*), 5 ML ORAL Q4H PRN for For Cough, (Reported) Ipratropium [place] 0.5MG/2.5ML (Ipratropium [place] 0.5MG/2.5ML), 0.5 MG HHN Q6H PRN for Shortness of Breath, (Reported) Nitroglycerin 0.4MG table* (Nitroglycerin*), 0.4 MG SL .Q5MIN X 3 DOSES PRN for CHEST PAIN, (Reported) Miscellaneous Medications Lactobacillus Acidophilus (Acidophilus Probiotic), 1 MG PO, (Reported) Vit B Complex 100 Cmb #3/Herbs (Balanced B-100 Tablet), 100 MG PO, (Reported) Patient History Healthcare decision maker JIAN BECKER Resuscitation status Do Not Resuscitate Advanced Directive on File No Past Medical/Surgical History Past Medical/Surgical History: (1) HTN (hypertension) (2) Abscess (3) G tube feedings (4) Advanced dementia (5) At high risk for aspiration Review of Systems All Other Systems: negative except mentioned in HPI Physical Exam General Appearance: WD/WN Lines, tubes and drains: peripheral, central line HEENT: normocephalic, atraumatic Neck: non-tender, normal alignment Respiratory/Chest: chest wall non-tender, lungs clear Cardiovascular/Chest: normal peripheral pulses Abdomen: normal bowel sounds Genitourinary/Rectal: normal genital exam Last 24 Hour Vital Signs Date Time Temp Pulse Resp B/P (MAP) Pulse Ox O2 Delivery O2 Flow Rate FiO2 09/07/19 12:50 100.1 09/07/19 12:00 2.0 09/07/19 12:00 100.3 108 19 132/81 (98) 96 09/07/19 12:00 110 09/07/19 09:00 Nasal Cannula 2.0 09/07/19 08:39 114 114/67 09/07/19 08:00 104 09/07/19 08:00 100.8 114 21 114/67 (83) 97 09/07/19 08:00 2.0 09/07/19 04:00 131 09/07/19 04:00 102.8 127 22 133/70 (91) 95 09/07/19 04:00 2.0 09/07/19 00:00 98.9 123 24 139/84 (102) 84 09/06/19 21:00 Nasal Cannula 2.0 09/06/19 20:00 100.8 124 22 129/79 (96) 89 09/06/19 20:00 2.0 09/06/19 20:00 114 09/06/19 17:14 Nasal Cannula 2.0 09/06/19 16:54 98.4 67 16 112/79 97 Nasal Cannula 2.0 09/06/19 14:48 115 23 Room Air 09/06/19 14:47 98.9 115 23 144/91 97 Room Air Intake and Output 09/06/19 09/07/19 19:00 07:00 Intake Total 3400 ml Output Total 400 ml Balance 3400 ml -400 ml Intake IV Total 3400 ml Output Urine Total 400 ml # Voids 1 1 # Bowel Movements 1 2 Laboratory Tests Test 09/07/19 05:45 White Blood Count 6.2 K/UL (4.8-10.8) # Red Blood Count 3.39 M/UL (4.70-6.10) L Hemoglobin 11.1 G/DL (14.2-18.0) L Hematocrit 34.0 % (42.0-52.0) L Mean Corpuscular Volume 100 FL (80-99) H Mean Corpuscular Hemoglobin 32.6 PG (27.0-31.0) H Mean Corpuscular Hemoglobin Concent 32.5 G/DL (32.0-36.0) Red Cell Distribution Width 13.9 % (11.6-14.8) Platelet Count 252 K/UL (150-450) Mean Platelet Volume 7.5 FL (6.5-10.1) Neutrophils (%) (Auto) % (45.0-75.0) Lymphocytes (%) (Auto) % (20.0-45.0) Monocytes (%) (Auto) % (1.0-10.0) Eosinophils (%) (Auto) % (0.0-3.0) Basophils (%) (Auto) % (0.0-2.0) Differential Total Cells Counted 100 Neutrophils % (Manual) 90 % (45-75) H Lymphocytes % (Manual) 3 % (20-45) L Monocytes % (Manual) 5 % (1-10) Eosinophils % (Manual) 2 % (0-3) Basophils % (Manual) 0 % (0-2) Band Neutrophils 0 % (0-8) Platelet Estimate Adequate Platelet Morphology Normal Sodium Level 143 MMOL/L (136-145) Potassium Level 3.6 MMOL/L (3.5-5.1) Chloride Level 108 MMOL/L (98-107) H Carbon Dioxide Level 25 MMOL/L (21-32) Anion Gap 10 mmol/L (5-15) Blood Urea Nitrogen 19 mg/dL (7-18) H Creatinine 0.7 MG/DL (0.55-1.30) Estimat Glomerular Filtration Rate mL/min (>60) Glucose Level 157 MG/DL (74-106) H Calcium Level 8.3 MG/DL (8.5-10.1) L Phosphorus Level 1.9 MG/DL (2.5-4.9) L Albumin 2.3 G/DL (3.4-5.0) L Microbiology Date/Time Source Procedure Growth Status 09/06/19 14:10 Blood Blood Culture - Preliminary Resulted 09/06/19 16:00 Rectum Received Height (Feet): 5 Height (Inches): 11.00 Weight (Pounds): 175 Medications Current Medications Medications (Trade) Dose Ordered Sig/Nelson Route PRN Reason Start Time Stop Time Status Last Admin Dose Admin Acetaminophen (Tylenol) 650 mg Q4H PRN GT fever 09/06/19 18:15 10/06/19 18:14 09/07/19 12:20 Albuterol/ Ipratropium (Albuterol/ Ipratropium) 3 ml Q4H PRN HHN Shortness of Breath 09/06/19 16:00 09/11/19 15:59 Amlodipine Besylate (Norvasc) 5 mg DAILY GT 09/07/19 09:00 10/07/19 08:59 09/07/19 08:39 Cefepime HCl 1 gm/ Dextrose 55 ml @ 110 mls/hr EVERY 12 HOURS IV 09/06/19 21:00 09/13/19 20:59 09/07/19 08:38 Dextrose (Dextrose 50%) 25 ml Q30M PRN IV Hypoglycemia 09/06/19 18:00 10/06/19 17:59 Dextrose (Dextrose 50%) 50 ml Q30M PRN IV Hypoglycemia 09/06/19 18:00 10/06/19 17:59 Gabapentin (Neurontin) 250 mg TID GT 09/06/19 20:00 10/06/19 19:59 09/07/19 12:18 Heparin Sodium (Porcine) (Heparin 5000 units/ml) 5,000 units EVERY 12 HOURS SUBQ 09/06/19 21:00 10/06/19 20:59 09/07/19 08:40 Insulin Aspart (NovoLOG) Q6HR SUBQ 09/07/19 00:00 10/07/19 00:00 09/07/19 12:19 Nitroglycerin (Ntg) 0.4 mg Q5M PRN SL Prn Chest Pain 09/06/19 16:00 10/06/19 15:59 Ondansetron HCl (Zofran) 4 mg Q6H PRN IVP Nausea & Vomiting 09/06/19 16:00 10/06/19 15:59 Polyethylene Glycol (Miralax) 17 gm DAILYPRN PRN GT Constipation 09/06/19 18:15 10/06/19 15:59 Temazepam (Restoril) 15 mg HSPRN PRN GT Insomnia 09/06/19 21:00 09/13/19 15:59 09/07/19 02:01 Vancomycin HCl (Vanco rx to dose) 1 ea DAILY PRN MISC Per rx protocol 09/06/19 16:00 10/06/19 15:59 Vancomycin/Sodium Chloride 275 ml @ 183.333 mls/hr Q12HR@0500,1700 IVPB 09/07/19 05:00 09/12/19 04:59 09/07/19 05:17 Assessment/Plan Problem List: (1) Healthcare-associated pneumonia ICD Codes: J18.9 - Pneumonia, unspecified organism SNOMED: 724324275 (2) At high risk for aspiration ICD Codes: Z91.89 - Other specified personal risk factors, not elsewhere classified SNOMED: 572973012 (3) History of CVA (cerebrovascular accident) ICD Codes: Z86.73 - Personal history of transient ischemic attack (TIA), and cerebral infarction without residual deficits SNOMED: 855076935 (4) Advanced dementia ICD Codes: F03.90 - Unspecified dementia without behavioral disturbance SNOMED: 86474989 (5) G tube feedings ICD Codes: Z93.1 - Gastrostomy status SNOMED: 836847929, 082030949 (6) HTN (hypertension) ICD Codes: I10 - HTN (hypertension) SNOMED: 98342900 Assessment/Plan: check sputum iv abx respiratory treatment dvt prophylaxis monitor electrolytes Sowmya Abbasi MD Sep 07, 2019 14:11
[2019-09-07 16:46] VITALS: BP 131/76
--- NOTE | 2019-09-07 16:47 | Consultation ---
Consult Note Consult Note HPI: 79yo gentleman with PMH below presents from care home for hypoxia and report of cough. Pt was recently admitted at this hospital 08/15-08/22 for sepsis 2/2 R shoulder abscess. Pt was discharged on zosyn and vancomycin. Pt unable to provide history. Per care home records, they were concerned for pneumonia. Pt was started on levaquin/flagyl early August. ROS: per HPI PMH: HTN FTT Anemia CVA Aphasia G tube malfunction BPH DM Bedbound OA Dementia NH resident DNR Meds: reviewed All: Hydromorphone SHx: care home resident FHx: noncontributory VS: reviewed Gen: NAD. cachectic. HEENT: anicteric sclera CV: RRR. no rubs or gallop Resp: RRR. rhonchi Abd: soft. no TTP Ext: no LE edema Skin: warm MSK: R shoulder previous pocket with slight discharge Labs: reviewed Assessment: Fever Leukopenia, SP No lactic acidosis Likely PNA Acute hypoxic respiratory failure on nasal cannula supplement CXR: Pneumonia versus atelectasis at the left lung base. sputum cx: r/o bacteremia 09/06 BCx: P h/o Staph capitis(CoNS) bacteremia 08/15 08/16 BCx: NG h/o R shoulder abscess agree with surg consult would ideally like wound culture HTN FTT Anemia CVA Aphasia G tube malfunction BPH DM Bedbound OA Dementia NH resident DNR Plan: continue cefepime and vanc #2 f/u MRSA screen f/u bcx f/u sputum cx aspiration precaution, elevate HOB G tube care skin care UA, Ucx Thank you for this consult. [facility] will continue to follow the patient with you. Garret Black MD Sep 07, 2019 16:47
--- NOTE | 2019-09-07 19:30 | NUR ---
HAND-OFF: Report given to Trenton Mcdaniel. Vincent hyde. PLan of care endorsed.
--- NOTE | 2019-09-07 19:30 | NUR ---
NURSE NOTES: Received report from Francisca Zayas RN. Pt is in bed, ST at 104, awake, oriented to self. Pt on 2 LPM via NC. Osmolite 1.5 @ 50ml/ hr goal. No residuals noted, GT flushed with 50 ML sterile water. GT is intact, patent, and asymptomatic. Pt has right and left 18g PIV: left arm running TKO fluids at 5 ml/hr, patent intact, and asymptomatic. and right hand saline locked. Right hand flushed with 10ml NS, patent, intact, and asymptomatic. No signs or symptoms of pain of distress noted at this time. Will continue to monitor closely.
[2019-09-07 20:00] VITALS: BP 145/77
[2019-09-07 20:46] LABS: APPEARANCE,URINE CLEAR; BILIRUBIN, URINE NEGATIVE (NEGATIVE); COLOR,URINE AMBER; GLUCOSE, URINE (UA) NEGATIVE (NEGATIVE); KETONES,URINE NEGATIVE (NEGATIVE); LEUKOCYTE ESTERASE ,URINE NEGATIVE (NEGATIVE); NITRITE,URINE NEGATIVE (NEGATIVE); PH,URINE 8 (4.5-8.0); PROTEIN,URINE 2+ (NEGATIVE); UROBILINOGEN,URINE NORMAL MG/DL (0.0-1.0)
[2019-09-08] VITALS: BP 151/87
[2019-09-08] MEDS: NovoLOG Insulin Flexpen SUBQ SCH ×4 (01:03→18:00)
[2019-09-08 04:00] VITALS: BP 139/83
[2019-09-08] MEDS: Vancomycin 1.25gm/NS Premix q24h IVPB SCH (04:06)
--- NOTE | 2019-09-08 07:40 | Infectious Diseases Prog Note ---
Assessment/Plan Assessment/Plan 79yo gentleman with PMH below presents from long term for hypoxia and report of cough. Pt was recently admitted at this hospital 08/15-08/22 for sepsis 2/2 R shoulder abscess. Pt was discharged on zosyn and vancomycin. Pt unable to provide history. Per long term records, they were concerned for pneumonia. Pt was started on levaquin/flagyl early August. Fever Leukopenia, SP No lactic acidosis Likely PNA Acute hypoxic respiratory failure on nasal cannula supplement CXR: Pneumonia versus atelectasis at the left lung base. sputum cx: Unlikely UTI UA negative r/o bacteremia 09/06 BCx: CoNS 09/08 Bcx: P h/o Staph capitis(CoNS) bacteremia 08/15 08/16 BCx: NG h/o R shoulder abscess no cx sent last time agree with surg consult would ideally like wound culture HTN FTT Anemia CVA Aphasia G tube malfunction BPH DM Bedbound OA Dementia NH resident DNR Plan: continue cefepime and vanc #3 f/u coNS specitation repeat bcx f/u MRSA screen TTE f/u sputum cx aspiration precaution, elevate HOB G tube care skin care UA, Ucx pending surgery consult for shoulder Thank you for this consult. [facility] will continue to follow the patient with you. Subjective Allergies: Coded Allergies: HYDROMORPHONE (Unverified Allergy, Unknown, 01/04/18) Subjective Tmax 100.8. Tachycardic. Stable on 2L still on cooling blanket, temp 98 Objective Vital Signs Last 24 Hour Vital Signs Date Time Temp Pulse Resp B/P (MAP) Pulse Ox O2 Delivery O2 Flow Rate FiO2 09/08/19 04:00 99.7 108 18 139/83 (101) 95 09/08/19 03:52 2.0 09/08/19 03:48 103 09/08/19 01:32 2.0 09/08/19 00:00 99.9 111 18 151/87 (108) 97 09/08/19 00:00 105 09/07/19 21:00 Nasal Cannula 2.0 09/07/19 20:00 99.7 108 17 145/77 (99) 99 09/07/19 19:52 104 09/07/19 16:46 99.4 108 19 131/76 (94) 98 09/07/19 16:00 2.0 09/07/19 16:00 97 09/07/19 12:50 100.1 09/07/19 12:00 2.0 09/07/19 12:00 100.3 108 19 132/81 (98) 96 09/07/19 12:00 110 09/07/19 09:00 Nasal Cannula 2.0 09/07/19 08:39 114 114/67 09/07/19 08:00 104 09/07/19 08:00 100.8 114 21 114/67 (83) 97 09/07/19 08:00 2.0 Height (Feet): 5 Height (Inches): 11.00 Weight (Pounds): 175 Objective Gen: NAD. cachectic. HEENT: anicteric sclera CV: RRR. no rubs or gallop Resp: RRR. rhonchi Abd: soft. no TTP Ext: no LE edema Skin: warm MSK: R shoulder previous pocket with slight discharge Microbiology Date/Time Source Procedure Growth Status 09/06/19 14:10 Blood Blood Culture - Preliminary Staphylococcus Sp Coag Neg Resulted 09/06/19 14:00 Blood Blood Culture - Preliminary Staphylococcus Sp Coag Neg Resulted 09/06/19 16:00 Rectum Received Laboratory Tests Test 09/07/19 19:24 Urine Color Mary Urine Appearance Clear Urine pH 8 (4.5-8.0) Urine Specific [place] 1.010 (1.005-1.035) Urine Protein 2+ (NEGATIVE) H Urine Glucose (UA) Negative (NEGATIVE) Urine Ketones Negative (NEGATIVE) Urine Blood Negative (NEGATIVE) Urine Nitrite Negative (NEGATIVE) Urine Bilirubin Negative (NEGATIVE) Urine Ictotest Negative (NEGATIVE) Urine Urobilinogen Normal MG/DL (0.0-1.0) Urine Leukocyte Esterase Negative (NEGATIVE) Urine RBC 0 /HPF (0 - 0) Urine WBC 0-2 /HPF (0 - 0) Urine Squamous Epithelial Cells Occasional /LPF Urine Amorphous Sediment Moderate /LPF (NONE) H Urine Bacteria Few /HPF (NONE) Urine Mucus Few /LPF (NONE/OCC) H Current Medications Medications (Trade) Dose Ordered Sig/Nelson Route PRN Reason Start Time Stop Time Status Last Admin Dose Admin Acetaminophen (Tylenol) 650 mg Q4H PRN GT fever 09/06/19 18:15 10/06/19 18:14 09/07/19 12:20 Albuterol/ Ipratropium (Albuterol/ Ipratropium) 3 ml Q4H PRN HHN Shortness of Breath 09/06/19 16:00 09/11/19 15:59 Amlodipine Besylate (Norvasc) 5 mg DAILY GT 09/07/19 09:00 10/07/19 08:59 09/07/19 08:39 Cefepime HCl 1 gm/ Dextrose 55 ml @ 110 mls/hr EVERY 12 HOURS IV 09/06/19 21:00 09/13/19 20:59 09/07/19 22:04 Dextrose (Dextrose 50%) 25 ml Q30M PRN IV Hypoglycemia 09/06/19 18:00 10/06/19 17:59 Dextrose (Dextrose 50%) 50 ml Q30M PRN IV Hypoglycemia 09/06/19 18:00 10/06/19 17:59 Gabapentin (Neurontin) 250 mg TID GT 09/06/19 20:00 10/06/19 19:59 09/07/19 17:27 Heparin Sodium (Porcine) (Heparin 5000 units/ml) 5,000 units EVERY 12 HOURS SUBQ 09/06/19 21:00 10/06/19 20:59 09/07/19 22:31 Insulin Aspart (NovoLOG) Q6HR SUBQ 09/07/19 00:00 10/07/19 00:00 09/08/19 05:18 Nitroglycerin (Ntg) 0.4 mg Q5M PRN SL Prn Chest Pain 09/06/19 16:00 10/06/19 15:59 Ondansetron HCl (Zofran) 4 mg Q6H PRN IVP Nausea & Vomiting 09/06/19 16:00 10/06/19 15:59 Polyethylene Glycol (Miralax) 17 gm DAILYPRN PRN GT Constipation 09/06/19 18:15 10/06/19 15:59 Temazepam (Restoril) 15 mg HSPRN PRN GT Insomnia 09/06/19 21:00 09/13/19 15:59 09/07/19 02:01 Vancomycin HCl (Vanco rx to dose) 1 ea DAILY PRN MISC Per rx protocol 09/06/19 16:00 10/06/19 15:59 Vancomycin/Sodium Chloride 275 ml @ 183.333 mls/hr Q12HR@0500,1700 IVPB 09/07/19 05:00 09/12/19 04:59 09/08/19 04:06 Garret Black MD Sep 08, 2019 07:40
--- NOTE | 2019-09-08 07:42 | NUR ---
HAND-OFF: Report given to SERGIO Mercado.
--- NOTE | 2019-09-08 07:50 | NUR ---
NURSE NOTES: pt is in bed. Pt on monitoring tech no signs of cardiac or respiratory distress at this time. Pt is on Gtube feeding at 1.5, 50ml/hr. Pt presently NPO awaiting a re-do speech evaluation. Pt is on cooling blanket T 98.9. Pt as a rectal thermometer. Call light within reach. Bed is locked and in lowest position. Will continue to follow plans of care for pt.
[2019-09-08 08:12] VITALS: BP 139/92
[2019-09-08] MEDS: Cefepime HCl 1 GM in D5W 55 ML IV SCH ×2 (08:46→20:08)
[2019-09-08] MEDS: Heparin 5000 units/ml inj SUBQ SCH ×2 (08:48→20:58)
[2019-09-08] MEDS: Gabapentin 300 MG/6 ML Soln GT SCH ×3 (08:49→17:58)
[2019-09-08 12:00] VITALS: BP 145/80
--- NOTE | 2019-09-08 14:50 | NUR ---
NURSE NOTES: notified Flex/monorail charger operator of pt transfer to [facility].
--- NOTE | 2019-09-08 15:35 | Cardiology Report ---
APPROVED REPORT EXAM: Two-dimensional and M-mode echocardiogram with Doppler and color Doppler. INDICATION Endocarditis M-Mode DIMENSIONS IVSd1.3 (0.7-1.1cm)Left Atrium (MM)3.2 (1.6-4.0cm) LVDd3.5 (3.5-5.6cm)Aortic Root3.4 (2.0-3.7cm) PWd1.0 (0.7-1.1cm)Aortic Cusp Exc.2.0 (1.5-2.0cm) LVDs2.2 (2.5-4.0cm) PWs1.4 cm Technically difficult and limited study due to contracted patient. Study quality precludes accurate assessment of regional wall motion. Normal left ventricular chamber size, systolic function and wall motion to extent visualized. Left ventricular ejection fraction estimated to be 60-65 %. Mild left ventricular hypertrophy. Anterior Echo-free space, may be due to pericardial fat or effusion. All other cardiac chamber sizes are within normal limits. Focal aortic valve sclerosis with adequate cusp excursion. Thickened mitral valve leaflets with normal excursion. Mitral annulus and aortic root calcification. Pulmonic valve not visualized. Normal tricuspid valve structure. Subcostal views not obtainable. A color flow and spectral Doppler study was performed and revealed: No aortic regurgitation. No mitral regurgitation. Mitral diastolic velocities suggest mild left ventricular diastolic dysfunction (Grade I). No tricuspid regurgitation.
--- NOTE | 2019-09-08 15:37 | NUR ---
NURSE NOTES: pt sounds congested called RT for treatment.
[2019-09-08 16:00] VITALS: BP 146/69
--- NOTE | 2019-09-08 16:38 | NUR ---
CASE MANAGEMENT: INITIAL REVIEW 79 YR OLD MALE BIBA FROM [facility] CC: DYSPNEA/ RESP DISTRESS SI: PNA 99.1 84 18 117/72 94% ON RA WBC 3.3 BUN 26 AB.457 PCO2 57.3 OS SAT89.7 IS: IV VANCOMYCIN X1 IV CEFTRIAXONE X1 AZITHROMYCIN X1 IV ERTAPENEM/NS X1 IVF NS X3.5 CXR : 2E TELE UNIT CASE MANAGEMENT: REVIEW 09/08/19 SI: PNA 99.7 108 18 139/83 95% ON RA IS: IV VANCOMYCIN Q21HR IV CEFTRIAXONE Q12HR HEPARIN SQ Q12HR : 2E TELE UNIT
--- NOTE | 2019-09-08 17:56 | NUR ---
NURSE NOTES: per pharmacist don't give 1700 Vancomycin 1.25g. Vanco trough levels came back too high.
--- NOTE | 2019-09-08 19:29 | NUR ---
HAND-OFF: Report given to Denise/ pt in stable condition.
--- NOTE | 2019-09-08 19:30 | NUR ---
NURSE NOTES: Received patient from SERGIO Mercado. Patient resting in bed comfortably. No signs of distress, shortness of breath, or pain noted. Patient unable to make needs known. IV sites checked, intact and patent, no signs of bleeding, infiltration, or redness noted. G-tube site checked, no residual, 50 mL/hr Osmolite 1.5 running at goal. Bed in lowest position, brakes on, side rails up x3, and call light within reach. Will continue with plan of care.
[2019-09-08 20:00] VITALS: BP 153/91
[2019-09-08] MEDS: Vancomycin 1gm/D5W 275ml IVPB SCH ×2 (20:58)
[2019-09-09] VITALS: BP 153/87
[2019-09-09] MEDS: NovoLOG Insulin Flexpen SUBQ SCH ×4 (00:32→19:19)
[2019-09-09 04:00] VITALS: BP 144/86
[2019-09-09 05:54] LABS: BASOPHILS % (AUTO) 0.8 % (0.0-2.0); EOSINOPHILS % (AUTO) 2.6 % (0.0-3.0); HEMATOCRIT 42.6 % (42.0-52.0); HEMOGLOBIN 13.8 G/DL (14.2-18.0); MEAN CORPUSCULAR VOLUME 100 FL (80-99); MONOCYTES % (AUTO) 6.3 % (1.0-10.0); NEUTROPHILS % (AUTO) 73.2 % (45.0-75.0); PLATELET COUNT 297 K/UL (150-450); RED BLOOD COUNT 4.25 M/UL (4.70-6.10); RED CELL DISTRIBUTION WIDTH 13.6 % (11.6-14.8); WHITE BLOOD COUNT 5.7 K/UL (4.8-10.8)
[2019-09-09 06:17] LABS: ALANINE AMINOTRANSFERASE 15 U/L (12-78); ALBUMIN 2.5 G/DL (3.4-5.0); ALBUMIN/GLOBULIN RATIO 0.4 (1.0-2.7); ALKALINE PHOSPHATASE 89 U/L (46-116); ANION GAP 10 mmol/L (5-15); ASPARTATE AMINO TRANSFERASE 23 U/L (15-37); BILIRUBIN,TOTAL 0.4 MG/DL (0.2-1.0); BLOOD UREA NITROGEN 13 mg/dL (7-18); CALCIUM 9.2 MG/DL (8.5-10.1); CARBON DIOXIDE 26 MMOL/L (21-32); CHLORIDE 101 MMOL/L (98-107); CREATININE 0.7 MG/DL (0.55-1.30); PHOSPHORUS 2.2 MG/DL (2.5-4.9); POTASSIUM 4.1 MMOL/L (3.5-5.1); SODIUM 137 MMOL/L (136-145)
--- NOTE | 2019-09-09 07:20 | NUR ---
HAND-OFF: Report given to SERGIO Calabrese. Plan of care endorsed. Addendum: 09/09/19 at 0721 by Denise Cast RN WRONG NURSE, REPORT GIVEN TO SERGIO HERNANDEZ.
[2019-09-09 08:00] VITALS: BP 146/90
--- NOTE | 2019-09-09 08:25 | NUR ---
NURSE NOTES: pt is in bed AOx1. 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 Pt is on Gtube feeding at 1.5, 50ml/hr tolerating feeding. Resend sputum collection to lab this morning. Pt presently NPO awaiting a re-do speech evaluation. Pt is on cooling blanket T 98.2. Pt as a rectal thermometer. Pt is negative cdiff. Call light within reach. Bed is locked and in lowest position. Will continue to follow plans of care for pt.
--- NOTE | 2019-09-09 09:04 | Infectious Diseases Prog Note ---
Assessment/Plan Assessment/Plan Assessment/Plan 79yo gentleman with PMH below [facility] and report of cough. Pt was recently admitted at this hospital 08/15-08/22 for sepsis 2/2 R shoulder abscess. Pt was discharged on zosyn and vancomycin. Pt unable to provide history. Per [facility] records, they were concerned for pneumonia. Pt was started on levaquin/flagyl early August. Fever, Sp Leukopenia, SP No lactic acidosis Likely PNA Acute hypoxic respiratory failure on nasal cannula supplement CXR: Pneumonia versus atelectasis at the left lung base. sputum cx: Unlikely UTI UA negative r/o bacteremia ( m/l contaimaninta 09/06 BCx: CoNS/ Staph epiderm. 09/08 Bcx: P h/o Staph capitis(CoNS) bacteremia 08/15 08/16 BCx: NG h/o R shoulder abscess no cx sent last time agree with surg consult would ideally like wound culture C Diff : Neg HTN FTT Anemia CVA Aphasia G tube malfunction BPH DM Bedbound OA Dementia NH resident DNR Plan: continue cefepime and vanc # 4 f/u coNS specitation (ordered lab) repeat bcx f/u MRSA screen TTE f/u sputum cx aspiration precaution, elevate HOB G tube care skin care UA, Ucx pending surgery consult for shoulder Thank you for this consult. [facility] will continue to follow the patient with you. Subjective Allergies: Coded Allergies: HYDROMORPHONE (Unverified Allergy, Unknown, 01/04/18) Subjective afebrile Objective Vital Signs Last 24 Hour Vital Signs Date Time Temp Pulse Resp B/P (MAP) Pulse Ox O2 Delivery O2 Flow Rate FiO2 09/09/19 04:00 98.8 102 17 144/86 (105) 96 09/09/19 04:00 102 09/09/19 04:00 2.0 09/09/19 00:00 99.0 111 18 153/87 (109) 94 09/09/19 00:00 123 09/08/19 21:00 Nasal Cannula 2.0 09/08/19 20:00 108 09/08/19 20:00 99.0 109 18 153/91 (111) 94 09/08/19 20:00 2.0 09/08/19 19:29 96 Nasal Cannula 2.0 28 09/08/19 19:29 98 18 96 Nasal Cannula 2.0 28 09/08/19 16:00 113 09/08/19 16:00 99.2 114 20 146/69 (94) 96 09/08/19 16:00 2.0 09/08/19 12:59 Nasal Cannula 2.0 09/08/19 12:00 2.0 09/08/19 12:00 105 09/08/19 12:00 98.1 103 20 145/80 (101) 98 Height (Feet): 5 Height (Inches): 11.00 Weight (Pounds): 175 Respiratory/Chest: normal breath sounds Cardiovascular: regularly irregular Abdomen: non distended Microbiology Date/Time Source Procedure Growth Status 09/06/19 14:10 Blood Blood Culture - Final Staphylococcus Sp Coag Neg Complete 09/06/19 14:00 Blood Blood Culture - Final Staphylococcus Epidermidis Complete 09/06/19 16:00 Nasal Nares MRSA Culture - Final NO METHICILLIN RESISTANT STAPH AUREUS... Complete 09/08/19 16:17 Stool Clostridium difficile Toxin Assay - Final Complete 09/07/19 19:24 Indwelling Cath Urine Culture - Preliminary NO GROWTH AFTER 24 HOURS Resulted 09/06/19 16:00 Rectum - Final NO CARBAPENEM-RESISTANT ENTEROBACTERI... Complete 09/06/19 16:00 Rectum VRE Culture - Final Enterococcus Faecalis - Vre Complete Laboratory Tests Test 09/08/19 16:15 09/09/19 05:10 Vancomycin Level Trough 21.4 ug/mL (5.0-12.0) H White Blood Count 5.7 K/UL (4.8-10.8) Red Blood Count 4.25 M/UL (4.70-6.10) L Hemoglobin 13.8 G/DL (14.2-18.0) L Hematocrit 42.6 % (42.0-52.0) Mean Corpuscular Volume 100 FL (80-99) H Mean Corpuscular Hemoglobin 32.4 PG (27.0-31.0) H Mean Corpuscular Hemoglobin Concent 32.3 G/DL (32.0-36.0) Red Cell Distribution Width 13.6 % (11.6-14.8) Platelet Count 297 K/UL (150-450) Mean Platelet Volume 7.4 FL (6.5-10.1) Neutrophils (%) (Auto) 73.2 % (45.0-75.0) Lymphocytes (%) (Auto) 17.0 % (20.0-45.0) L Monocytes (%) (Auto) 6.3 % (1.0-10.0) Eosinophils (%) (Auto) 2.6 % (0.0-3.0) Basophils (%) (Auto) 0.8 % (0.0-2.0) Erythrocyte Sedimentation Rate 26 MM/HR (0-20) H Sodium Level 137 MMOL/L (136-145) Potassium Level 4.1 MMOL/L (3.5-5.1) Chloride Level 101 MMOL/L (98-107) Carbon Dioxide Level 26 MMOL/L (21-32) Anion Gap 10 mmol/L (5-15) Blood Urea Nitrogen 13 mg/dL (7-18) Creatinine 0.7 MG/DL (0.55-1.30) Estimat Glomerular Filtration Rate mL/min (>60) Glucose Level 150 MG/DL (74-106) H Calcium Level 9.2 MG/DL (8.5-10.1) Phosphorus Level 2.2 MG/DL (2.5-4.9) L Magnesium Level 1.6 MG/DL (1.8-2.4) L Total Bilirubin 0.4 MG/DL (0.2-1.0) Aspartate Amino Transf (AST/SGOT) 23 U/L (15-37) Alanine Aminotransferase (ALT/SGPT) 15 U/L (12-78) Alkaline Phosphatase 89 U/L (46-116) C-Reactive Protein, Quantitative 4.2 mg/dL (0.00-0.90) H Total Protein 9.4 G/DL (6.4-8.2) H Albumin 2.5 G/DL (3.4-5.0) L Globulin 6.9 g/dL Albumin/Globulin Ratio 0.4 (1.0-2.7) L Current Medications Medications (Trade) Dose Ordered Sig/Nelson Route PRN Reason Start Time Stop Time Status Last Admin Dose Admin Acetaminophen (Tylenol) 650 mg Q4H PRN GT fever 09/06/19 18:15 10/06/19 18:14 09/07/19 12:20 Albuterol/ Ipratropium (Albuterol/ Ipratropium) 3 ml Q4H PRN HHN Shortness of Breath 09/06/19 16:00 09/11/19 15:59 Amlodipine Besylate (Norvasc) 5 mg DAILY GT 09/07/19 09:00 10/07/19 08:59 09/08/19 08:47 Cefepime HCl 1 gm/ Dextrose 55 ml @ 110 mls/hr EVERY 12 HOURS IV 09/06/19 21:00 09/13/19 20:59 09/08/19 20:08 Dextrose (Dextrose 50%) 25 ml Q30M PRN IV Hypoglycemia 09/06/19 18:00 10/06/19 17:59 Dextrose (Dextrose 50%) 50 ml Q30M PRN IV Hypoglycemia 09/06/19 18:00 10/06/19 17:59 Gabapentin (Neurontin) 250 mg TID GT 09/06/19 20:00 10/06/19 19:59 09/08/19 17:58 Heparin Sodium (Porcine) (Heparin 5000 units/ml) 5,000 units EVERY 12 HOURS SUBQ 09/06/19 21:00 10/06/19 20:59 09/08/19 08:48 Insulin Aspart (NovoLOG) Q6HR SUBQ 09/07/19 00:00 10/07/19 00:00 09/09/19 06:49 Nitroglycerin (Ntg) 0.4 mg Q5M PRN SL Prn Chest Pain 09/06/19 16:00 10/06/19 15:59 Ondansetron HCl (Zofran) 4 mg Q6H PRN IVP Nausea & Vomiting 09/06/19 16:00 10/06/19 15:59 Polyethylene Glycol (Miralax) 17 gm DAILYPRN PRN GT Constipation 09/06/19 18:15 10/06/19 15:59 Temazepam (Restoril) 15 mg HSPRN PRN GT Insomnia 09/06/19 21:00 09/13/19 15:59 09/07/19 02:01 Vancomycin HCl (Vanco rx to dose) 1 ea DAILY PRN MISC Per rx protocol 09/06/19 16:00 10/06/19 15:59 Vancomycin HCl 1 gm/Dextrose 275 ml @ 183.708 mls/hr Q12HR IVPB 09/08/19 21:00 09/13/19 20:59 09/08/19 20:58 Isauro Gutierrez MD Sep 09, 2019 09:04
--- NOTE | 2019-09-09 09:29 | Pulmonology Progress Note ---
Assessment/Plan Assessment/Plan ASSESSMENT acute hypoxemic respiratory failure HCAP bacteremia with SCON-real vs contaminant aspiration risk functional quadriplegia dysphagia, , feeding by G tube DM HTN CAD with hx of [place] PLAN OF CARE tele still tachy abx as per ID recs ECHO with pEF, no evidence of vegetation repeat BCX O2 titrate, HHN fup with CXR asp precautions, GT feeding swallow eval noted, recommended continue with nonoral feeding DVT prophylaxis BP management with CCB BS management with SSI pain management wound care per protocol supportive care bowel regimen DNR/DNI status case discussed and evaluated by supervising physician Subjective Allergies: Coded Allergies: HYDROMORPHONE (Unverified Allergy, Unknown, 01/04/18) Subjective afebrile, on O2 via NC, pulse ox stable no signs of resp distress remains ST on tele Objective Last 24 Hour Vital Signs Date Time Temp Pulse Resp B/P (MAP) Pulse Ox O2 Delivery O2 Flow Rate FiO2 09/09/19 04:00 98.8 102 17 144/86 (105) 96 09/09/19 04:00 102 09/09/19 04:00 2.0 09/09/19 00:00 99.0 111 18 153/87 (109) 94 09/09/19 00:00 123 09/08/19 21:00 Nasal Cannula 2.0 09/08/19 20:00 108 09/08/19 20:00 99.0 109 18 153/91 (111) 94 09/08/19 20:00 2.0 09/08/19 19:29 96 Nasal Cannula 2.0 28 09/08/19 19:29 98 18 96 Nasal Cannula 2.0 28 09/08/19 16:00 113 09/08/19 16:00 99.2 114 20 146/69 (94) 96 09/08/19 16:00 2.0 09/08/19 12:59 Nasal Cannula 2.0 09/08/19 12:00 2.0 09/08/19 12:00 105 09/08/19 12:00 98.1 103 20 145/80 (101) 98 Intake and Output 09/08/19 09/09/19 18:59 06:59 Intake Total 630 ml Output Total 501 ml 600 ml Balance -501 ml 30 ml Intake Free Water 250 ml IV Total 330 ml Tube Feeding 50 ml Output Urine Total 500 ml 600 ml Stool Total 1 ml # Bowel Movements 3 General Appearance: other - bedbound, poorly responsive AA male in NAD HEENT: normocephalic, atraumatic, anicteric Respiratory/Chest: no respiratory distress, no accessory muscle use, rhonchi - few scattered rhonchi Cardiovascular: tachycardia - ST on tele Abdomen: normal bowel sounds, soft, non tender, other - G tube Extremities: no edema Neurologic/Psychiatric: abnormal gait - bedridden , other - contracted, poorly responsive Musculoskeletal: atrophy Microbiology Date/Time Source Procedure Growth Status 09/06/19 14:10 Blood Blood Culture - Final Staphylococcus Sp Coag Neg Complete 09/06/19 14:00 Blood Blood Culture - Final Staphylococcus Epidermidis Complete 09/06/19 16:00 Nasal Nares MRSA Culture - Final NO METHICILLIN RESISTANT STAPH AUREUS... Complete 09/08/19 16:17 Stool Clostridium difficile Toxin Assay - Final Complete 09/07/19 19:24 Indwelling Cath Urine Culture - Preliminary NO GROWTH AFTER 24 HOURS Resulted 09/06/19 16:00 Rectum - Final NO CARBAPENEM-RESISTANT ENTEROBACTERI... Complete 09/06/19 16:00 Rectum VRE Culture - Final Enterococcus Faecalis - Vre Complete Laboratory Tests 09/08/19 16:15: Vancomycin Level Trough 21.4H 09/09/19 05:10: White Blood Count 5.7, Red Blood Count 4.25L, Hemoglobin 13.8L, Hematocrit 42.6 , Mean Corpuscular Volume 100H, Mean Corpuscular Hemoglobin 32.4H, Mean Corpuscular Hemoglobin Concent 32.3, Red Cell Distribution Width 13.6, Platelet Count 297, Mean Platelet Volume 7.4, Neutrophils (%) (Auto) 73.2, Lymphocytes (% ) (Auto) 17.0L, Monocytes (%) (Auto) 6.3, Eosinophils (%) (Auto) 2.6, Basophils (%) (Auto) 0.8, Erythrocyte Sedimentation Rate 26H, Sodium Level 137, Potassium Level 4.1, Chloride Level 101, Carbon Dioxide Level 26, Anion Gap 10, Blood Urea Nitrogen 13, Creatinine 0.7, Estimat Glomerular Filtration Rate , Glucose Level 150H, Calcium Level 9.2, Phosphorus Level 2.2L, Magnesium Level 1.6L, Total Bilirubin 0.4, Aspartate Amino Transf (AST/SGOT) 23, Alanine Aminotransferase (ALT/SGPT) 15, Alkaline Phosphatase 89, C-Reactive Protein, Quantitative 4.2H, Total Protein 9.4H, Albumin 2.5L, Globulin 6.9, Albumin/ Globulin Ratio 0.4L Current Medications Medications (Trade) Dose Ordered Sig/Nelson Route PRN Reason Start Time Stop Time Status Last Admin Dose Admin Acetaminophen (Tylenol) 650 mg Q4H PRN GT fever 09/06/19 18:15 10/06/19 18:14 09/07/19 12:20 Albuterol/ Ipratropium (Albuterol/ Ipratropium) 3 ml Q4H PRN HHN Shortness of Breath 09/06/19 16:00 09/11/19 15:59 Amlodipine Besylate (Norvasc) 5 mg DAILY GT 09/07/19 09:00 10/07/19 08:59 09/08/19 08:47 Cefepime HCl 1 gm/ Dextrose 55 ml @ 110 mls/hr EVERY 12 HOURS IV 09/06/19 21:00 09/13/19 20:59 09/08/19 20:08 Dextrose (Dextrose 50%) 25 ml Q30M PRN IV Hypoglycemia 09/06/19 18:00 10/06/19 17:59 Dextrose (Dextrose 50%) 50 ml Q30M PRN IV Hypoglycemia 09/06/19 18:00 10/06/19 17:59 Gabapentin (Neurontin) 250 mg TID GT 09/06/19 20:00 10/06/19 19:59 09/08/19 17:58 Heparin Sodium (Porcine) (Heparin 5000 units/ml) 5,000 units EVERY 12 HOURS SUBQ 09/06/19 21:00 10/06/19 20:59 09/08/19 08:48 Insulin Aspart (NovoLOG) Q6HR SUBQ 09/07/19 00:00 10/07/19 00:00 09/09/19 06:49 Nitroglycerin (Ntg) 0.4 mg Q5M PRN SL Prn Chest Pain 09/06/19 16:00 10/06/19 15:59 Ondansetron HCl (Zofran) 4 mg Q6H PRN IVP Nausea & Vomiting 09/06/19 16:00 10/06/19 15:59 Polyethylene Glycol (Miralax) 17 gm DAILYPRN PRN GT Constipation 09/06/19 18:15 10/06/19 15:59 Temazepam (Restoril) 15 mg HSPRN PRN GT Insomnia 09/06/19 21:00 09/13/19 15:59 09/07/19 02:01 Vancomycin HCl (Vanco rx to dose) 1 ea DAILY PRN MISC Per rx protocol 09/06/19 16:00 10/06/19 15:59 Vancomycin HCl 1 gm/Dextrose 275 ml @ 183.708 mls/hr Q12HR IVPB 09/08/19 21:00 09/13/19 20:59 09/08/19 20:58 Tiera Pat [employer] Sep 09, 2019 09:29
[2019-09-09] MEDS: Gabapentin 300 MG/6 ML Soln GT SCH ×3 (10:20→18:28)
[2019-09-09] MEDS: Cefepime HCl 1 GM in D5W 55 ML IV SCH ×2 (10:21→21:05)
[2019-09-09] MEDS: Heparin 5000 units/ml inj SUBQ SCH ×2 (10:24→21:06)
[2019-09-09 12:00] VITALS: BP 159/79
[2019-09-09] MEDS ORDERED: Albuterol/Ipratropium 3ml neb HHN PRN (12:00)
[2019-09-09] MEDS: Vancomycin 1gm/D5W 275ml IVPB SCH ×4 (12:04→21:04)
--- NOTE | 2019-09-09 12:14 | Consultation ---
History of Present Illness General Date patient seen: Sep 09, 2019 Time patient seen: 12:01 Chief Complaint: Dyspnea/Respdistress Reason for Consultation: Wounds Present Illness HPI Asked to evaluate patient for wound management. He was recently discharged from [facility] on 08/22 but was readmitted a few days ago due to respiratory distress and pneumonia. He resides at a [facility] and is bedridden with multiple contractures of UE and LEs. Upon admission he was noted to have a sacrococcyx ulcer as well as a left elbow ulcer and a right upper back ulcer. The right upper back ulcer is due to an I&D of an abscess in that area. He is not able to give history and history obtained from the medical record. Allergies: Coded Allergies: HYDROMORPHONE (Unverified Allergy, Unknown, 01/04/18) Medication History Scheduled Amlodipine Besylate* (Amlodipine Besylate*), 5 MG PO DAILY, (Reported) Amlodipine Besylate* (Amlodipine Besylate*), 5 MG GT DAILY, (Reported) Atorvastatin Calcium* (Atorvastatin Calcium*), 20 MG ORAL BEDTIME, (Reported) Baclofen* (Baclofen*), 5 MG GT THREE TIMES A DAY, (Reported) Baclofen* (Baclofen*), 5 MG GT THREE TIMES A DAY, (Reported) Bisacodyl* (Dulcolax*), 10 MG RC NEEDED, (Reported) Cefepime Hcl/D5w (Cefepime-Dextrose 2 Gm/50 Ml), 2 GM IVPB EVERY 12 HOURS, ( Reported) Cefepime Hcl/D5w (Cefepime-Dextrose 2 Gm/50 Ml), 2 GM IVPB Q24H, (Reported) Cephalexin (Cephalexin), 500 MG GT QID Chloraseptic [place] (Sm Sore Throat [place]), 5 SPRAY ORAL EVERY 2 HOURS, (Reported ) Clobetasol Propionate/Emoll (Clobetasol Emollient 0.05% Crm), 15 GM TP BID, ( Reported) Clopidogrel Bisulfate* (Plavix*), 75 MG GT DAILY, (Reported) Clotrimazole (Clotrimazole), 1 GM TP TID Diclofenac Sod* (Voltaren*), 2 GM TP THREE TIMES A DAY, (Reported) Docusate Sodium* (Docusate Sodium*), 100 MG GT BID, (Reported) Doxycycline Hyclate* (Vibramycin*), 100 MG ORAL BID, (Reported) Doxycycline Hyclate* (Vibramycin*), 100 MG GT EVERY 12 HOURS, (Reported) Dronabinol* (Marinol*), 2.5 MG ORAL THREE TIMES A DAY, (Reported) Ergocalciferol (Vitamin D2)* (Vitamin D*), 50,000 UNIT ORAL ONCE A WEEK, ( Reported) Finasteride* (Proscar*), 5 MG GT DAILY, (Reported) Gabapentin* (Neurontin*), 600 MG PO Q8H, (Reported) Gabapentin* (Gabapentin*), 250 MG GT THREE TIMES A DAY, (Reported) Heparin Sod (Porcine) (Heparin Sodium*), 5,000 UNITS SUBQ EVERY 12 HOURS, ( Reported) Lansoprazole* (Lansoprazole*), 30 MG GT DAILY, (Reported) Losartan Potassium* (Cozaar*), 50 MG PO DAILY, (Reported) Magnesium Hydroxide* (Milk Of Magnesia*), 30 ML GT DAILY, (Reported) Multivitamin with Minerals (Multivitamins with Minerals), 1 TAB GT DAILY, ( Reported) Omeprazole (Omeprazole), 20 MG GT DAILY, (Reported) Rssvvdmdbwdw-Hyej-Uaudftxc,Iso (Zosyn 3.375 Gm Pre Mix-Bag), 3.375 GM IVPB EVERY 8 HOURS Polyethylene Glycol 3350* (Polyethylene Glycol 3350*), 17 GM GT DAILY, (Reported ) Rosuvastatin Calcium* (Crestor*), 20 MG GT BEDTIME, (Reported) Sennosides (Senna), 8.6 MG GT DAILY, (Reported) Tamsulosin Hcl (Tamsulosin Hcl*), 0.4 MG GT BEDTIME, (Reported) Temazepam (Temazepam*), 15 MG GT BEDTIME, (Reported) Theophylline (Theodur*), 100 MG ORAL Q12HR, (Reported) Trimethoprim/Sulfamethoxazole (Bactrim Ds Tablet), 1 TAB ORAL TWICE A DAY Trimethoprim/Sulfamethoxazole 160/800* (Bactrim Ds Tablet*), 1 TAB ORAL Q12H Vancomycin/Water For Inj (Peg) (Vancomycin 1 Gram/200 ml Bag), 0.75 GM IV EVERY 12 HOURS Scheduled PRN Acetaminophen With Codeine (T#3) (Tylenol #3 Tab*), 650 MG GT Q4H PRN for For Pain, (Reported) Acetaminophen With Codeine (T#3) (Tylenol #3 Tab*), 1 TAB ORAL Q6H PRN for For Pain, (Reported) Acetaminophen* (Tylenol Extra Strength*), 650 MG GT Q4HR PRN for Mild Pain/Temp > 100.5, (Reported) Albuterol Sulfate* (Albuterol Sulfate Hhn*), 3 ML INH Q4H PRN for Shortness of Breath, (Reported) Codeine/Promethazine Hcl* (Promethazine-Codeine Syrup*), 5 ML ORAL Q4H PRN for For Cough, (Reported) Ipratropium Ebro 0.5MG/2.5ML (Ipratropium Ebro 0.5MG/2.5ML), 0.5 MG HHN Q6H PRN for Shortness of Breath, (Reported) Nitroglycerin 0.4MG table* (Nitroglycerin*), 0.4 MG SL .Q5MIN X 3 DOSES PRN for CHEST PAIN, (Reported) Miscellaneous Medications Lactobacillus Acidophilus (Acidophilus Probiotic), 1 MG PO, (Reported) Vit B Complex 100 Cmb #3/Herbs (Balanced B-100 Tablet), 100 MG PO, (Reported) Patient History Limited by: medical condition History Provided By: Medical Record Healthcare decision maker JIAN BECKER Resuscitation status Do Not Resuscitate Advanced Directive on File No Past Medical/Surgical History Past Medical/Surgical History: (1) HTN (hypertension) (2) s/p multiple strokes with global aphasia, 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 Appears better than on admission photos (09/06/19). Left elbow contracted with superficial ulcer with 80% granular base. Right upper back I&D site clean with no drainage expressable. No erythema or fluctuance in the periskin. Heels and ankles with no pressure related changes. Protected with padded dressings. Musculoskeletal: atrophy, other - Severe flexion contractures at the elbows, hips, and knees Last 24 Hour Vital Signs Date Time Temp Pulse Resp B/P (MAP) Pulse Ox O2 Delivery O2 Flow Rate FiO2 09/09/19 10:20 111 146/90 09/09/19 04:00 98.8 102 17 144/86 (105) 96 09/09/19 04:00 102 09/09/19 04:00 2.0 09/09/19 00:00 99.0 111 18 153/87 (109) 94 09/09/19 00:00 123 09/08/19 21:00 Nasal Cannula 2.0 09/08/19 20:00 108 09/08/19 20:00 99.0 109 18 153/91 (111) 94 09/08/19 20:00 2.0 09/08/19 19:29 96 Nasal Cannula 2.0 28 09/08/19 19:29 98 18 96 Nasal Cannula 2.0 28 09/08/19 16:00 113 09/08/19 16:00 99.2 114 20 146/69 (94) 96 09/08/19 16:00 2.0 09/08/19 12:59 Nasal Cannula 2.0 Intake and Output 09/08/19 09/09/19 18:59 06:59 Intake Total 630 ml Output Total 501 ml 600 ml Balance -501 ml 30 ml Intake Free Water 250 ml IV Total 330 ml Tube Feeding 50 ml Output Urine Total 500 ml 600 ml Stool Total 1 ml # Bowel Movements 3 Laboratory Tests Test 09/08/19 16:15 09/09/19 05:10 Vancomycin Level Trough 21.4 ug/mL (5.0-12.0) H White Blood Count 5.7 K/UL (4.8-10.8) Red Blood Count 4.25 M/UL (4.70-6.10) L Hemoglobin 13.8 G/DL (14.2-18.0) L Hematocrit 42.6 % (42.0-52.0) Mean Corpuscular Volume 100 FL (80-99) H Mean Corpuscular Hemoglobin 32.4 PG (27.0-31.0) H Mean Corpuscular Hemoglobin Concent 32.3 G/DL (32.0-36.0) Red Cell Distribution Width 13.6 % (11.6-14.8) Platelet Count 297 K/UL (150-450) Mean Platelet Volume 7.4 FL (6.5-10.1) Neutrophils (%) (Auto) 73.2 % (45.0-75.0) Lymphocytes (%) (Auto) 17.0 % (20.0-45.0) L Monocytes (%) (Auto) 6.3 % (1.0-10.0) Eosinophils (%) (Auto) 2.6 % (0.0-3.0) Basophils (%) (Auto) 0.8 % (0.0-2.0) Erythrocyte Sedimentation Rate 26 MM/HR (0-20) H Sodium Level 137 MMOL/L (136-145) Potassium Level 4.1 MMOL/L (3.5-5.1) Chloride Level 101 MMOL/L (98-107) Carbon Dioxide Level 26 MMOL/L (21-32) Anion Gap 10 mmol/L (5-15) Blood Urea Nitrogen 13 mg/dL (7-18) Creatinine 0.7 MG/DL (0.55-1.30) Estimat Glomerular Filtration Rate mL/min (>60) Glucose Level 150 MG/DL (74-106) H Calcium Level 9.2 MG/DL (8.5-10.1) Phosphorus Level 2.2 MG/DL (2.5-4.9) L Magnesium Level 1.6 MG/DL (1.8-2.4) L Total Bilirubin 0.4 MG/DL (0.2-1.0) Aspartate Amino Transf (AST/SGOT) 23 U/L (15-37) Alanine Aminotransferase (ALT/SGPT) 15 U/L (12-78) Alkaline Phosphatase 89 U/L (46-116) C-Reactive Protein, Quantitative 4.2 mg/dL (0.00-0.90) H Total Protein 9.4 G/DL (6.4-8.2) H Albumin 2.5 G/DL (3.4-5.0) L Globulin 6.9 g/dL Albumin/Globulin Ratio 0.4 (1.0-2.7) L Microbiology Date/Time Source Procedure Growth Status 09/08/19 16:17 Stool Clostridium difficile Toxin Assay - Final Complete Height (Feet): 5 Height (Inches): 11.00 Weight (Pounds): 175 Medications Current Medications Medications (Trade) Dose Ordered Sig/Nelson Route PRN Reason Start Time Stop Time Status Last Admin Dose Admin Acetaminophen (Tylenol) 650 mg Q4H PRN GT fever 09/06/19 18:15 10/06/19 18:14 09/07/19 12:20 Albuterol/ Ipratropium (Albuterol/ Ipratropium) 3 ml Q4HRT PRN HHN Shortness of Breath 09/09/19 12:00 09/14/19 11:59 Amlodipine Besylate (Norvasc) 5 mg DAILY GT 09/07/19 09:00 10/07/19 08:59 09/09/19 10:20 Cefepime HCl 1 gm/ Dextrose 55 ml @ 110 mls/hr EVERY 12 HOURS IV 09/06/19 21:00 09/13/19 20:59 09/09/19 10:21 Dextrose (Dextrose 50%) 25 ml Q30M PRN IV Hypoglycemia 09/06/19 18:00 10/06/19 17:59 Dextrose (Dextrose 50%) 50 ml Q30M PRN IV Hypoglycemia 09/06/19 18:00 10/06/19 17:59 Gabapentin (Neurontin) 250 mg TID GT 09/06/19 20:00 10/06/19 19:59 09/09/19 10:20 Heparin Sodium (Porcine) (Heparin 5000 units/ml) 5,000 units EVERY 12 HOURS SUBQ 09/06/19 21:00 10/06/19 20:59 09/09/19 10:24 Insulin Aspart (NovoLOG) Q6HR SUBQ 09/07/19 00:00 10/07/19 00:00 09/09/19 06:49 Nitroglycerin (Ntg) 0.4 mg Q5M PRN SL Prn Chest Pain 09/06/19 16:00 10/06/19 15:59 Ondansetron HCl (Zofran) 4 mg Q6H PRN IVP Nausea & Vomiting 09/06/19 16:00 10/06/19 15:59 Polyethylene Glycol (Miralax) 17 gm DAILYPRN PRN GT Constipation 09/06/19 18:15 10/06/19 15:59 Temazepam (Restoril) 15 mg HSPRN PRN GT Insomnia 09/06/19 21:00 09/13/19 15:59 09/07/19 02:01 Vancomycin HCl (Vanco rx to dose) 1 ea DAILY PRN MISC Per rx protocol 09/06/19 16:00 10/06/19 15:59 Vancomycin HCl 1 gm/Dextrose 275 ml @ 183.708 mls/hr Q12HR IVPB 09/08/19 21:00 09/13/19 20:59 09/08/19 20:58 Assessment/Plan Status: stable Assessment/Plan: From a wound management standpoint most important is prevention given his baseline degree of contractures, the fact that he is bedridden, and that he likely has protein malnutrition. Offloading the sacrococcyx area is the most important intervention and continue dressing changes per the protocol. Elbow ulcer is superficial and need to maintain padding over it given the degree of contracture. The I&D site to be covered by biotene pad alone. No need to pack. No other surgical intervention for the wounds required at this time. Thank you for allowing me to participate in this patient's care. Darnell Marcelino MD Sep 09, 2019 12:13
[2019-09-09 16:00] VITALS: BP 151/79
--- NOTE | 2019-09-09 19:58 | NUR ---
NURSE NOTES: pt is in bed AOx1. Pt on cardiac cath lab manager no signs of cardiac or respiratory distress at this time. Pt is on Gtube feeding at 1.5, 50ml/hr tolerating feeding. Pt presently NPO awaiting a re-do speech evaluation. Pt is on cooling blanket T 98.2, and a rectal thermometer. Call light within reach. Bed is locked and in lowest position, bed alarm on. Will continue with plan of care.
[2019-09-09 20:00] VITALS: BP 155/83
--- NOTE | 2019-09-09 20:26 | NUR ---
HAND-OFF: Report given to Nicola/SERGIO, pt in stable conditio.
[2019-09-10] VITALS: BP 153/84
[2019-09-10] MEDS: NovoLOG Insulin Flexpen SUBQ SCH ×4 (00:58→17:09)
[2019-09-10 04:00] VITALS: BP 126/82
--- NOTE | 2019-09-10 07:43 | NUR ---
HAND-OFF: Report given to SERGIO Mas. Endorsed plan of care.
--- NOTE | 2019-09-10 07:45 | NUR ---
NURSE NOTES: Received report from SERGIO Oneill. The patient is resting on the bed without acute distress or shortness of breath. The patient's bed in the lowest position, call light in reach, and fall and aspiration precaution reinforced. IV site intact and patent. G-tube intact and patent and running formula as ordered. Benavidez intact and patent. The patient is on 2L NC as ordered. Will continue plan of care.
[2019-09-10 08:00] VITALS: BP 147/99
--- NOTE | 2019-09-10 08:30 | NUR ---
NURSE NOTES: Notified Dr. Abbasi regarding the patient's persistent tachycardia upto 140s. Also notified Dr. Abbasi that the patient's saturation is 90% with 2L NC. No new order yet. Will closely monitor the patient. Will continue plan of care.
--- NOTE | 2019-09-10 09:00 | NUR ---
NURSE NOTES: Called respiratory therapist for saturation of 88-90% even with 2L NC. Respiratory therapist took intervention. The patient's saturation went upto 99% after intervention. Will closely monitor the patient.
--- NOTE | 2019-09-10 09:30 | NUR ---
NURSE NOTES: Called Dr. Abbasi again for persistent tachycardia. The patient's blood pressure is stable. No new order yet. Will continue plan of care.
[2019-09-10] MEDS: Gabapentin 300 MG/6 ML Soln GT SCH ×3 (09:32→17:05)
[2019-09-10] MEDS: Heparin 5000 units/ml inj SUBQ SCH ×2 (09:33→20:44)
[2019-09-10] MEDS: Cefepime HCl 1 GM in D5W 55 ML IV SCH ×2 (09:33→20:42)
--- NOTE | 2019-09-10 10:08 | Pulmonology Progress Note ---
Assessment/Plan Assessment/Plan ASSESSMENT acute hypoxemic respiratory failure HCAP bacteremia with SCON-real vs contaminant aspiration risk functional quadriplegia dysphagia, , feeding by G tube DM HTN CAD with hx of PR PLAN OF CARE tele still tachy abx as per ID recs ECHO with pEF, no evidence of vegetation repeat BCX O2 titrate, HHN fup with CXR asp precautions, GT feeding swallow eval noted, recommended continue with nonoral feeding DVT prophylaxis BP management with CCB BS management with SSI pain management wound care per protocol supportive care bowel regimen DNR/DNI status case discussed and evaluated by supervising physician Subjective Allergies: Coded Allergies: HYDROMORPHONE (Unverified Allergy, Unknown, 01/04/18) Subjective afebrile, on O2 via NC, pulse ox stable no signs of resp distress remains ST on tele Objective Last 24 Hour Vital Signs Date Time Temp Pulse Resp B/P (MAP) Pulse Ox O2 Delivery O2 Flow Rate FiO2 09/10/19 09:32 64 161/75 09/10/19 04:00 98.2 112 18 126/82 (97) 94 09/10/19 04:00 2.0 09/10/19 04:00 112 09/10/19 00:00 98.0 104 19 153/84 (107) 99 09/10/19 00:00 104 09/09/19 21:00 Nasal Cannula 2.0 09/09/19 21:00 95 Nasal Cannula 2.0 28 09/09/19 21:00 102 18 94 Nasal Cannula 2.0 28 09/09/19 20:00 102 09/09/19 20:00 98.2 102 18 155/83 (107) 93 09/09/19 20:00 2.0 09/09/19 16:00 98.8 115 18 151/79 (103) 96 09/09/19 16:00 109 09/09/19 16:00 2.0 09/09/19 12:17 100 18 96 Nasal Cannula 2.0 28 09/09/19 12:17 96 Nasal Cannula 2.0 28 09/09/19 12:00 109 09/09/19 12:00 2.0 09/09/19 12:00 98.1 113 20 159/79 (105) 96 09/09/19 10:20 111 146/90 Intake and Output 09/09/19 09/10/19 19:00 07:00 Intake Total 300 ml 350 ml Output Total 1250 ml 750 ml Balance -950 ml -400 ml Intake Free Water 250 ml 250 ml Tube Feeding 50 ml 100 ml Output Urine Total 1250 ml 750 ml Stool Total 0 ml # Bowel Movements 1 Objective General Appearance: bedbound, poorly responsive AA male in NAD HEENT: normocephalic, atraumatic, anicteric Respiratory/Chest: no respiratory distress, no accessory muscle use, few scattered rhonchi Cardiovascular: tachycardia , ST on tele Abdomen: normal bowel sounds, soft, non tender, G tube Extremities: no edema Neurologic/Psychiatric: abnormal gait - bedridden , contracted, poorly responsive Musculoskeletal: atrophy Microbiology Date/Time Source Procedure Growth Status 09/08/19 09:00 Blood Blood Culture - Preliminary NO GROWTH AFTER 24 HOURS Resulted 09/08/19 08:45 Blood Blood Culture - Preliminary Resulted 09/09/19 08:10 Sputum Not Specified Gram Stain - Final Resulted 09/09/19 08:10 Sputum Culture - Preliminary Gram Negative Galileo Resulted 09/08/19 16:17 Stool Clostridium difficile Toxin Assay - Final Complete 09/07/19 19:24 Indwelling Cath Urine Culture - Final NO GROWTH AFTER 48 HOURS Complete Laboratory Tests 09/10/19 08:00: Vancomycin Level Trough 25.3H Current Medications Medications (Trade) Dose Ordered Sig/Nelson Route PRN Reason Start Time Stop Time Status Last Admin Dose Admin Acetaminophen (Tylenol) 650 mg Q4H PRN GT fever 09/06/19 18:15 10/06/19 18:14 09/07/19 12:20 Albuterol/ Ipratropium (Albuterol/ Ipratropium) 3 ml Q4HRT PRN HHN Shortness of Breath 09/09/19 12:00 09/14/19 11:59 Amlodipine Besylate (Norvasc) 5 mg DAILY GT 09/07/19 09:00 10/07/19 08:59 09/10/19 09:32 Cefepime HCl 1 gm/ Dextrose 55 ml @ 110 mls/hr EVERY 12 HOURS IV 09/06/19 21:00 09/13/19 20:59 09/10/19 09:33 Dextrose (Dextrose 50%) 25 ml Q30M PRN IV Hypoglycemia 09/06/19 18:00 10/06/19 17:59 Dextrose (Dextrose 50%) 50 ml Q30M PRN IV Hypoglycemia 09/06/19 18:00 10/06/19 17:59 Gabapentin (Neurontin) 250 mg TID GT 09/06/19 20:00 10/06/19 19:59 09/10/19 09:32 Heparin Sodium (Porcine) (Heparin 5000 units/ml) 5,000 units EVERY 12 HOURS SUBQ 09/06/19 21:00 10/06/19 20:59 09/10/19 09:33 Insulin Aspart (NovoLOG) Q6HR SUBQ 09/07/19 00:00 10/07/19 00:00 09/10/19 05:49 Nitroglycerin (Ntg) 0.4 mg Q5M PRN SL Prn Chest Pain 09/06/19 16:00 10/06/19 15:59 Ondansetron HCl (Zofran) 4 mg Q6H PRN IVP Nausea & Vomiting 09/06/19 16:00 10/06/19 15:59 Polyethylene Glycol (Miralax) 17 gm DAILYPRN PRN GT Constipation 09/06/19 18:15 10/06/19 15:59 Temazepam (Restoril) 15 mg HSPRN PRN GT Insomnia 09/06/19 21:00 09/13/19 15:59 09/07/19 02:01 Vancomycin HCl (Vanco rx to dose) 1 ea DAILY PRN MISC Per rx protocol 09/06/19 16:00 10/06/19 15:59 Tiera Pat NP Sep 10, 2019 10:08
[2019-09-10] MEDS ORDERED: NS Irrig 1000ml ONE (10:30)
[2019-09-10] MEDS ORDERED: NS 275ml ONE (10:30)
--- NOTE | 2019-09-10 10:30 | NUR ---
NURSE NOTES: Called Dr. Abbasi again for persistent tachycardia and abnormal lab including magnesium, phos, and positive sputum culture. No new order yet. Will closely monitor the patient.
[2019-09-10 12:00] VITALS: BP 138/77
--- NOTE | 2019-09-10 12:00 | NUR ---
NURSE NOTES: Notified Dr. Black regarding positive blood culture that was done on 09/08 with gram positive cocci in cluster. Per Dr. Black, no new order as the patient is already on Vancomycin. Will closely monitor the patient.
[2019-09-10] MEDS: Acetaminophen 650mg/20.3ml GT PRN (12:50)
--- NOTE | 2019-09-10 13:00 | NUR ---
NURSE NOTES: The patient is stable without acute distress or shortness of breath. The degree of tachycardia got better with nursing intervention. Will continue plan of care.
[2019-09-10 16:00] VITALS: BP 131/66
--- NOTE | 2019-09-10 16:00 | NUR ---
NURSE NOTES: The patient is stable without acute distress or shortness of breath. Will continue plan of care.
--- NOTE | 2019-09-10 18:30 | NUR ---
NURSE NOTES: The patient is stable without acute distress or shortness of breath. Will continue plan of care.
--- NOTE | 2019-09-10 19:30 | NUR ---
HAND-OFF: Report given to SERGIO Ahmadi. The patient is resting on the bed without acute distress or shortness of breath. The patient's bed in the lowest position, call light in reach, and fall and aspiration precaution reinforced. IV site intact and patent. G tube and Benavidez intact and patent. Endorsed plan of care.
--- NOTE | 2019-09-10 19:31 | NUR ---
NURSE NOTES: Received report from Yevgeniy Atkinson RN. PT is AO x1. Pt is in the bed. Calm and comfortable. Oriented to the room. Pt is on campus monitor. Rails are up x3. Bed alarm is on. Call light is next to the pt. Will follow the plan of care.
[2019-09-10 20:00] VITALS: BP 124/66
[2019-09-11] VITALS: BP 127/61
[2019-09-11] MEDS: NovoLOG Insulin Flexpen SUBQ SCH ×4 (00:24→17:09)
[2019-09-11 04:00] VITALS: BP 138/68
--- NOTE | 2019-09-11 07:23 | NUR ---
HAND-OFF: Report given to Yevgeniy Atkinson.
--- NOTE | 2019-09-11 07:30 | NUR ---
NURSE NOTES: Received report from SERGIO Ahmadi. The patient is resting on the bed without acute distress or shortness of breath. The patient's bed in the lowest position, call light in reach, and fall and aspiration precaution reinforced. G-tube intact with 5cc residual, and Benavidez intact and draining well. IV site intact and patent. Will continue plan of care.
[2019-09-11 08:00] VITALS: BP 140/77
[2019-09-11 08:36] LABS: BASOPHILS % (AUTO) 0.5 % (0.0-2.0); EOSINOPHILS % (AUTO) 0.1 % (0.0-3.0); HEMATOCRIT 36.5 % (42.0-52.0); HEMOGLOBIN 12.2 G/DL (14.2-18.0); LYMPHOCYTES % (AUTO) 10.6 % (20.0-45.0); MEAN CORPUSCULAR VOLUME 96 FL (80-99); NEUTROPHILS % (AUTO) 82.8 % (45.0-75.0); PLATELET COUNT 316 K/UL (150-450); RED BLOOD COUNT 3.81 M/UL (4.70-6.10); RED CELL DISTRIBUTION WIDTH 12.4 % (11.6-14.8); WHITE BLOOD COUNT 10.2 K/UL (4.8-10.8)
[2019-09-11 08:53] LABS: ANION GAP 10 mmol/L (5-15); BLOOD UREA NITROGEN 20 mg/dL (7-18); CALCIUM 9.4 MG/DL (8.5-10.1); CARBON DIOXIDE 25 MMOL/L (21-32); CHLORIDE 99 MMOL/L (98-107); CREATININE 0.5 MG/DL (0.55-1.30); SODIUM 134 MMOL/L (136-145)
[2019-09-11] MEDS: Gabapentin 300 MG/6 ML Soln GT SCH ×3 (08:58→17:09)
[2019-09-11] MEDS: Heparin 5000 units/ml inj SUBQ SCH ×2 (08:59→22:10)
[2019-09-11] MEDS: Cefepime HCl 1 GM in D5W 55 ML IV SCH (08:59)
--- NOTE | 2019-09-11 09:30 | NUR ---
NURSE NOTES: The patient is stable without acute distress or shortness of breath. Will continue plan of care.
--- NOTE | 2019-09-11 09:45 | Infectious Diseases Prog Note ---
Assessment/Plan Assessment/Plan 79yo gentleman with PMH below presents from longterm for hypoxia and report of cough. Pt was recently admitted at this hospital 08/15-08/22 for sepsis 2/2 R shoulder abscess. Pt was discharged on zosyn and vancomycin. Pt unable to provide history. Per longterm records, they were concerned for pneumonia. Pt was started on levaquin/flagyl early August. Fever Leukopenia, SP No lactic acidosis Likely PNA Acute hypoxic respiratory failure on nasal cannula supplement CXR: Pneumonia versus atelectasis at the left lung base. sputum cx: Pseudomonas Unlikely UTI UA negative r/o bacteremia 09/06 BCx: CoNS 09/08 Bcx: P TTE: Focal aortic valve sclerosis with adequate cusp excursion. Thickened mitral valve leaflets with normal excursion. Mitral annulus and aortic root calcification. Pulmonic valve not visualized. Normal tricuspid valve structure. h/o Staph capitis(CoNS) bacteremia 08/15 08/16 BCx: NG h/o R shoulder abscess no cx sent last time agree with surg consult would ideally like wound culture MRSA screen negative HTN FTT Anemia CVA Aphasia G tube malfunction BPH DM Bedbound OA Dementia NH resident DNR Plan: DC cefepime #5, start meropenem #1 continue vanc #6 f/u coNS specitation f/u repeat bcx aspiration precaution, elevate HOB G tube care skin care Thank you for this consult. [facility] will continue to follow the patient with you. Subjective Allergies: Coded Allergies: HYDROMORPHONE (Unverified Allergy, Unknown, 01/04/18) Subjective Afebrile but on cooling blanket. Nurse reports temp of 100 off blanket. Pt no complaints Objective Vital Signs Last 24 Hour Vital Signs Date Time Temp Pulse Resp B/P (MAP) Pulse Ox O2 Delivery O2 Flow Rate FiO2 09/11/19 08:58 117 140/77 09/11/19 08:00 55 09/11/19 08:00 98.1 117 20 140/77 (98) 96 09/11/19 04:00 98.1 108 20 138/68 (91) 100 09/11/19 04:00 111 09/11/19 04:00 2.0 09/11/19 00:00 108 09/11/19 00:00 97.9 110 20 127/61 (83) 100 09/11/19 00:00 2.0 09/10/19 21:00 Nasal Cannula 2.0 09/10/19 20:00 123 22 92 Venturi Mask 14.0 55 09/10/19 20:00 93 Venturi Mask 14.0 55 09/10/19 20:00 93 09/10/19 20:00 97.9 110 20 124/66 (85) 98 09/10/19 16:00 115 09/10/19 16:00 98.7 105 20 131/66 (87) 99 09/10/19 16:00 2.0 09/10/19 13:20 99.9 09/10/19 12:00 2.0 09/10/19 12:00 143 09/10/19 12:00 99.0 137 20 138/77 (97) 95 09/10/19 11:59 95 Venturi Mask 8.0 40 09/10/19 11:58 140 24 95 Venturi Mask 8.0 40 Height (Feet): 5 Height (Inches): 11.00 Weight (Pounds): 175 Objective Gen: NAD. cachectic. HEENT: anicteric sclera CV: RRR. no rubs or gallop Resp: RRR. rhonchi Abd: soft. no TTP Ext: no LE edema Skin: warm MSK: R shoulder previous pocket with slight discharge Microbiology Date/Time Source Procedure Growth Status 09/09/19 08:10 Sputum Not Specified Gram Stain - Final Complete 09/09/19 08:10 Sputum Culture - Final Pseudomonas Aeruginosa Complete 09/08/19 16:17 Stool Clostridium difficile Toxin Assay - Final Complete Laboratory Tests Test 09/11/19 07:15 White Blood Count 10.2 K/UL (4.8-10.8) Red Blood Count 3.81 M/UL (4.70-6.10) L Hemoglobin 12.2 G/DL (14.2-18.0) L Hematocrit 36.5 % (42.0-52.0) L Mean Corpuscular Volume 96 FL (80-99) Mean Corpuscular Hemoglobin 32.1 PG (27.0-31.0) H Mean Corpuscular Hemoglobin Concent 33.5 G/DL (32.0-36.0) Red Cell Distribution Width 12.4 % (11.6-14.8) Platelet Count 316 K/UL (150-450) Mean Platelet Volume 7.8 FL (6.5-10.1) Neutrophils (%) (Auto) 82.8 % (45.0-75.0) H Lymphocytes (%) (Auto) 10.6 % (20.0-45.0) L Monocytes (%) (Auto) 6.0 % (1.0-10.0) Eosinophils (%) (Auto) 0.1 % (0.0-3.0) Basophils (%) (Auto) 0.5 % (0.0-2.0) Sodium Level 134 MMOL/L (136-145) L Potassium Level 4.0 MMOL/L (3.5-5.1) Chloride Level 99 MMOL/L (98-107) Carbon Dioxide Level 25 MMOL/L (21-32) Anion Gap 10 mmol/L (5-15) Blood Urea Nitrogen 20 mg/dL (7-18) H Creatinine 0.5 MG/DL (0.55-1.30) L Estimat Glomerular Filtration Rate mL/min (>60) Glucose Level 116 MG/DL (74-106) H Calcium Level 9.4 MG/DL (8.5-10.1) Random Vancomycin Level 15.6 ug/mL Current Medications Medications (Trade) Dose Ordered Sig/Nelson Route PRN Reason Start Time Stop Time Status Last Admin Dose Admin Acetaminophen (Tylenol) 650 mg Q4H PRN GT fever 09/06/19 18:15 10/06/19 18:14 09/10/19 12:50 Albuterol/ Ipratropium (Albuterol/ Ipratropium) 3 ml Q4HRT PRN HHN Shortness of Breath 09/09/19 12:00 09/14/19 11:59 Amlodipine Besylate (Norvasc) 5 mg DAILY GT 09/07/19 09:00 10/07/19 08:59 09/11/19 08:58 Cefepime HCl 1 gm/ Dextrose 55 ml @ 110 mls/hr EVERY 12 HOURS IV 09/06/19 21:00 09/13/19 20:59 09/11/19 08:59 Dextrose (Dextrose 50%) 25 ml Q30M PRN IV Hypoglycemia 09/06/19 18:00 10/06/19 17:59 Dextrose (Dextrose 50%) 50 ml Q30M PRN IV Hypoglycemia 09/06/19 18:00 10/06/19 17:59 Gabapentin (Neurontin) 250 mg TID GT 09/06/19 20:00 10/06/19 19:59 09/11/19 08:58 Heparin Sodium (Porcine) (Heparin 5000 units/ml) 5,000 units EVERY 12 HOURS SUBQ 09/06/19 21:00 10/06/19 20:59 09/11/19 08:59 Insulin Aspart (NovoLOG) Q6HR SUBQ 09/07/19 00:00 10/07/19 00:00 09/11/19 00:24 Nitroglycerin (Ntg) 0.4 mg Q5M PRN SL Prn Chest Pain 09/06/19 16:00 10/06/19 15:59 Ondansetron HCl (Zofran) 4 mg Q6H PRN IVP Nausea & Vomiting 09/06/19 16:00 10/06/19 15:59 09/10/19 11:30 Polyethylene Glycol (Miralax) 17 gm DAILYPRN PRN GT Constipation 09/06/19 18:15 10/06/19 15:59 Temazepam (Restoril) 15 mg HSPRN PRN GT Insomnia 09/06/19 21:00 09/13/19 15:59 09/07/19 02:01 Vancomycin HCl (Vanco rx to dose) 1 ea DAILY PRN MISC Per rx protocol 09/06/19 16:00 10/06/19 15:59 Vancomycin/Sodium Chloride 275 ml @ 183.333 mls/hr Q48H IVPB 09/11/19 12:00 09/16/19 11:59 Garret Black MD Sep 11, 2019 09:45
--- NOTE | 2019-09-11 09:48 | NUR ---
RADIOLOGY: PCXR COMPLETED 0945HRS. NF
--- NOTE | 2019-09-11 10:53 | NUR ---
NURSE NOTES: Dr. Abbasi at the bedside assessed the patient. Notified Dr. Abbasi regarding change in condition, which are tachycardia, incident of desaturation on 09/11, positive sputum culture, and abnormal electrolytes. No new order yet. Will continue plan of care.
--- NOTE | 2019-09-11 10:56 | Diagnostic Imaging Report ---
Indication: Shortness of breath Technique: One view of the chest Comparison: 09/06/2019 Findings: There is some infiltrate in the right suprahilar region. This is a new finding. There is also retrocardiac consolidation which was also evident previously but appears to have progressed somewhat. There may be a small left pleural effusion. Extensive bony proliferative changes are seen in the right shoulder. Impression: New right suprahilar and increasing left basilar infiltrates, since prior study of 5 days earlier
[2019-09-11] MEDS: Meropenem 1 GM in NS 55 ML IVPB SCH ×2 (11:06→22:09)
--- NOTE | 2019-09-11 11:59 | Pulmonology Progress Note ---
Assessment/Plan Problems: (1) Healthcare-associated pneumonia (2) At high risk for aspiration (3) History of CVA (cerebrovascular accident) (4) Advanced dementia (5) G tube feedings (6) HTN (hypertension) Assessment/Plan check cultures adjust abx respiratory treatment titrate fio2 to sat of 92% aspiration precaution dvt prophylaxis pt would benefit from palliative and hospice and end-of-life care. Subjective ROS Limited/Unobtainable: No Constitutional: Reports: no symptoms HEENT: Repors: no symptoms Respiratory: Reports: no symptoms Cardiovascular: Reports: no symptoms Allergies: Coded Allergies: HYDROMORPHONE (Unverified Allergy, Unknown, 01/04/18) Objective Last 24 Hour Vital Signs Date Time Temp Pulse Resp B/P (MAP) Pulse Ox O2 Delivery O2 Flow Rate FiO2 09/11/19 09:00 Venturi Mask 09/11/19 08:58 117 140/77 09/11/19 08:00 55 09/11/19 08:00 108 09/11/19 08:00 98.1 117 20 140/77 (98) 96 09/11/19 04:00 98.1 108 20 138/68 (91) 100 09/11/19 04:00 111 09/11/19 04:00 2.0 09/11/19 00:00 108 09/11/19 00:00 97.9 110 20 127/61 (83) 100 09/11/19 00:00 2.0 09/10/19 21:00 Nasal Cannula 2.0 09/10/19 20:00 123 22 92 Venturi Mask 14.0 55 09/10/19 20:00 93 Venturi Mask 14.0 55 09/10/19 20:00 93 09/10/19 20:00 97.9 110 20 124/66 (85) 98 09/10/19 16:00 115 09/10/19 16:00 98.7 105 20 131/66 (87) 99 09/10/19 16:00 2.0 09/10/19 13:20 99.9 09/10/19 12:00 2.0 09/10/19 12:00 143 09/10/19 12:00 99.0 137 20 138/77 (97) 95 09/10/19 11:59 95 Venturi Mask 8.0 40 09/10/19 11:58 140 24 95 Venturi Mask 8.0 40 Intake and Output 09/10/19 09/11/19 19:00 07:00 Intake Total 1050 ml 700 ml Output Total 600 ml 300 ml Balance 450 ml 400 ml Intake Free Water 500 ml 250 ml Tube Feeding 550 ml 450 ml Output Urine Total 600 ml 300 ml # Bowel Movements 1 General Appearance: WD/WN HEENT: normocephalic, atraumatic Respiratory/Chest: chest wall non-tender, lungs clear Cardiovascular: normal peripheral pulses, normal rate Abdomen: normal bowel sounds, soft, non tender Genitourinary: normal external genitalia Extremities: no clubbing Neurologic/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: 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 II-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 grossly normal Lymphatic: no neck adenopathy Microbiology Date/Time Source Procedure Growth Status 09/09/19 08:10 Sputum Not Specified Gram Stain - Final Complete 09/09/19 08:10 Sputum Culture - Final Pseudomonas Aeruginosa Complete 09/08/19 16:17 Stool Clostridium difficile Toxin Assay - Final Complete Laboratory Tests 09/11/19 07:15: White Blood Count 10.2, Red Blood Count 3.81L, Hemoglobin 12.2L, Hematocrit 36.5L, Mean Corpuscular Volume 96, Mean Corpuscular Hemoglobin 32.1H, Mean Corpuscular Hemoglobin Concent 33.5, Red Cell Distribution Width 12.4, Platelet Count 316, Mean Platelet Volume 7.8, Neutrophils (%) (Auto) 82.8H, Lymphocytes ( %) (Auto) 10.6L, Monocytes (%) (Auto) 6.0, Eosinophils (%) (Auto) 0.1, Basophils (%) (Auto) 0.5, Sodium Level 134L, Potassium Level 4.0, Chloride Level 99, Carbon Dioxide Level 25, Anion Gap 10, Blood Urea Nitrogen 20H, Creatinine 0.5L, Estimat Glomerular Filtration Rate , Glucose Level 116H, Calcium Level 9.4, Random Vancomycin Level 15.6 Current Medications Medications (Trade) Dose Ordered Sig/Nelson Route PRN Reason Start Time Stop Time Status Last Admin Dose Admin Acetaminophen (Tylenol) 650 mg Q4H PRN GT fever 09/06/19 18:15 10/06/19 18:14 09/10/19 12:50 Albuterol/ Ipratropium (Albuterol/ Ipratropium) 3 ml Q4HRT PRN HHN Shortness of Breath 09/09/19 12:00 09/14/19 11:59 Amlodipine Besylate (Norvasc) 5 mg DAILY GT 09/07/19 09:00 10/07/19 08:59 09/11/19 08:58 Dextrose (Dextrose 50%) 25 ml Q30M PRN IV Hypoglycemia 09/06/19 18:00 10/06/19 17:59 Dextrose (Dextrose 50%) 50 ml Q30M PRN IV Hypoglycemia 09/06/19 18:00 10/06/19 17:59 Gabapentin (Neurontin) 250 mg TID GT 09/06/19 20:00 10/06/19 19:59 09/11/19 08:58 Heparin Sodium (Porcine) (Heparin 5000 units/ml) 5,000 units EVERY 12 HOURS SUBQ 09/06/19 21:00 10/06/19 20:59 09/11/19 08:59 Insulin Aspart (NovoLOG) Q6HR SUBQ 09/07/19 00:00 10/07/19 00:00 09/11/19 00:24 Meropenem 1 gm/ Sodium Chloride 55 ml @ 110 mls/hr Q8HR IVPB 09/11/19 11:00 09/16/19 10:59 09/11/19 11:06 Nitroglycerin (Ntg) 0.4 mg Q5M PRN SL Prn Chest Pain 09/06/19 16:00 10/06/19 15:59 Ondansetron HCl (Zofran) 4 mg Q6H PRN IVP Nausea & Vomiting 09/06/19 16:00 10/06/19 15:59 09/10/19 11:30 Polyethylene Glycol (Miralax) 17 gm DAILYPRN PRN GT Constipation 09/06/19 18:15 10/06/19 15:59 Temazepam (Restoril) 15 mg HSPRN PRN GT Insomnia 09/06/19 21:00 09/13/19 15:59 09/07/19 02:01 Vancomycin HCl (Vanco rx to dose) 1 ea DAILY PRN MISC Per rx protocol 09/06/19 16:00 10/06/19 15:59 Vancomycin/Sodium Chloride 275 ml @ 183.333 mls/hr Q48H IVPB 09/11/19 12:00 09/16/19 11:59 Sowmya Abbasi MD Sep 11, 2019 11:59
[2019-09-11 12:00] VITALS: BP 135/76
[2019-09-11] MEDS: Vancomycin 1.25gm/NS Premix IVPB SCH (12:03)
--- NOTE | 2019-09-11 13:00 | NUR ---
NURSE NOTES: The patient is stable without acute distress or shortness of breath. Will continue plan of care.
--- NOTE | 2019-09-11 14:12 | NUR ---
CASE MANAGEMENT:REVIEW 09/11/19 SI: PNA 96.6 125 20 135/76 93% ON VENTURI MASK 14L 55% H/H-12.2/36.5 BUN+20 IS: IV VANCOMYCIN Q48HRS IV MEROPENEM Q8HRS NORVASC GT QD HEPARIN SQ Q12 : TELEMETRY STATUS DCP: [facility]
--- NOTE | 2019-09-11 14:51 | NUR ---
RD ASSESSMENT & RECOMMENDATIONS SEE CARE ACTIVITY FOR COMPLETE ASSESSMENT DAILY ESTIMATED NEEDS: Needs based on cardiac, wound healing, DM/ 70kg 25-30 kcals/kg 7152-0298 total kcals 1.25-1.5 g protein/kg 87-105 g total protein 25-30 mL/kg 3300-0678 total fluid mLs NUTRITION DIAGNOSIS: * Swallowing difficulty R/T dysphagia as evidenced by pt PEG dependent. * Increased Kcal and pro needs r/t wound healing as evidenced by pt admitted w/ full thickness wounds at R scapula and L elbow, non-blanching erythema at rt heel. * Altered nutrition related lab values R/T h/o DM as evidenced by elev POC glu (110-175), on NISS. CURRENT TF:Osmolite 1.5 @ 50ml/hr x20 hrs ENTERAL NUTRITION RECOMMENDATIONS: Glucerna 1.5 @ 50ml/hr x 24 hrs to provide 1200ml, 1800kcal, 99g prot, 911ml free water * Rec TF change to carb controlled TF of Glucerna 1.5 (H/o DM, pt on NISS) * Initiate Glucerna 1.5 @ 30ml/hr x 6hrs, advance 10ml q 4-6 hrs as tolerated to goal rate. * HOB over 30 degrees * Water flush of 250ml q 6hrs ADDITIONAL RECOMMENDATIONS: * Calibrated bedscale wt for accurate CBW EMR wt= 175# vs bedscale wt 08/25 4=153.78# * Check A1C for eval of glycemic control: h/o DM -> Rec TF change to carb controlled TF of Glucerna 1.5 (See above) * Monitor lytes, replete as needed (low phso and mag) * Wound healing: add Vit C 250mg QD + ZnSO4 220mg QD x 10 days : add Phillip 1pkt BID
[2019-09-11 16:00] VITALS: BP 118/62
--- NOTE | 2019-09-11 17:00 | NUR ---
NURSE NOTES: The patient is stable without acute distress or shortness of breath. Will continue plan of care.
--- NOTE | 2019-09-11 18:17 | NUR ---
NURSE NOTES: Mild grade fever noted. Tylenol will be given. Addendum: 09/11/19 at 1826 by Yevgeniy Atkinson RN Checked the body temperature again. Noted as 99.2F. Tylenol held until clarification made with Dr. Abbasi. Will continue plan of care.
[2019-09-11] MEDS: Acetaminophen 650mg/20.3ml GT PRN (18:56)
--- NOTE | 2019-09-11 18:57 | NUR ---
NURSE NOTES: Tylenol given for mild pain per Dr. Abbasi's order. The patient denies of acute distress or shortness of breath. Will continue plan of care.
--- NOTE | 2019-09-11 19:20 | NUR ---
HAND-OFF: Report given to SERGIO Oneill. The patient is resting on the bed without acute distress or shortness of breath. The patient's bed in the lowest position, call light in reach, and fall and aspiration precaution reinforced. IV site intact and patnet. G tube intact and formula running as ordered. Benavidez intact and draining well. The patient is on Venturi mask as ordered and saturation within normal range. Endorsed plan of care.
--- NOTE | 2019-09-11 19:21 | NUR ---
NURSE NOTES: Received pt from SERGIO Mas. Pt is awake and resting in bed in no distress w/ HOB elevated. Venturi mask on patient, saturating at goal. Iv site intact and patent. Benavidez catheter intact and draining. Feeding via G-tube patent. Pt's bed is locked in lowest position, bed alarm on with call light within reach. Will continue with plan of care.
[2019-09-11 20:00] VITALS: BP 127/71
[2019-09-12] VITALS: BP 121/67
[2019-09-12] MEDS: NovoLOG Insulin Flexpen SUBQ SCH ×4 (00:42→17:44)
[2019-09-12 04:00] VITALS: BP 126/73
[2019-09-12] MEDS: Meropenem 1 GM in NS 55 ML IVPB SCH ×3 (05:52→21:12)
--- NOTE | 2019-09-12 07:48 | NUR ---
HAND-OFF: Report given to Trenton Bonilla. Endorsed plan of care.
--- NOTE | 2019-09-12 07:58 | NUR ---
NURSE NOTES: Patient stable, alert to self but nonverbal. RR even and unlabored on venturi mask. Dressings in place intact and dry. Feeding on at 55mL/hr. Benavidez draining well to gravity. Side rails up x2, bed low and locked. Will continue to monitor.
[2019-09-12 08:00] VITALS: BP 128/57
[2019-09-12] MEDS: Gabapentin 300 MG/6 ML Soln GT SCH ×3 (09:27→17:42)
[2019-09-12] MEDS: Heparin 5000 units/ml inj SUBQ SCH ×2 (09:28→21:13)
--- NOTE | 2019-09-12 10:46 | NUR ---
CASE MANAGEMENT:REVIEW 09/12/19 SI: PNA 98.6 113 20 128/57 99% ON VENTURI MASK 14L 55% IS: IV VANCOMYCIN Q48HRS IV MEROPENEM Q8HRS NORVASC GT QD HEPARIN SQ Q12 : TELEMETRY STATUS DCP: [facility] Addendum: 09/12/19 at 1114 by TRAY ESPINO LVN CASE MANAGEMENT:REVIEW 09/12/19 SI: PNA 98.6 113 20 128/57 99% ON VENTURI MASK 12L 50% IS: IV VANCOMYCIN Q48HRS IV MEROPENEM Q8HRS NORVASC GT QD HEPARIN SQ Q12 : TELEMETRY STATUS DCP: [facility]
--- NOTE | 2019-09-12 11:37 | Pulmonology Progress Note ---
Assessment/Plan Problems: (1) Healthcare-associated pneumonia (2) At high risk for aspiration (3) History of CVA (cerebrovascular accident) (4) Advanced dementia (5) G tube feedings (6) HTN (hypertension) Assessment/Plan adjust abx, on meropenem and vancomycin respiratory treatment titrate fio2 to sat of 92% aspiration precaution dvt prophylaxis pt would benefit from palliative and hospice and end-of-life care. dc to halfway with IV abx. Subjective ROS Limited/Unobtainable: No HEENT: Repors: no symptoms Respiratory: Reports: no symptoms Allergies: Coded Allergies: HYDROMORPHONE (Unverified Allergy, Unknown, 01/04/18) Objective Last 24 Hour Vital Signs Date Time Temp Pulse Resp B/P (MAP) Pulse Ox O2 Delivery O2 Flow Rate FiO2 09/12/19 09:27 113 128/57 09/12/19 09:00 Venturi Mask 09/12/19 08:00 98.6 113 20 128/57 (80) 99 09/12/19 08:00 50 09/12/19 08:00 103 09/12/19 04:00 111 09/12/19 04:00 98.1 111 18 126/73 (90) 99 09/12/19 04:00 50 09/12/19 00:00 97.3 107 20 121/67 (85) 100 09/12/19 00:00 107 09/11/19 21:00 Venturi Mask 09/11/19 20:54 109 18 99 Venturi Mask 12.0 50 09/11/19 20:54 99 Venturi Mask 12.0 50 09/11/19 20:00 118 09/11/19 20:00 98.5 118 22 127/71 (89) 99 09/11/19 20:00 55 09/11/19 16:00 127 09/11/19 16:00 98.6 122 20 118/62 (80) 99 09/11/19 16:00 55 09/11/19 12:25 128 22 97 Venturi Mask 14.0 55 09/11/19 12:25 93 Venturi Mask 14.0 55 09/11/19 12:00 125 09/11/19 12:00 55 09/11/19 12:00 96.6 124 20 135/76 (95) 98 Intake and Output 09/11/19 09/12/19 19:00 07:00 Intake Total 1100 ml 800 ml Output Total 1000 ml 1100 ml Balance 100 ml -300 ml Intake Free Water 500 ml 250 ml Tube Feeding 600 ml 550 ml Output Urine Total 1000 ml 1100 ml General Appearance: cachetic HEENT: normocephalic Respiratory/Chest: chest wall non-tender, lungs clear Cardiovascular: normal peripheral pulses, regularly irregular Abdomen: normal bowel sounds, soft, non tender Genitourinary: normal external genitalia Extremities: no cyanosis Microbiology Date/Time Source Procedure Growth Status 09/10/19 19:30 Blood Blood Culture - Preliminary NO GROWTH AFTER 24 HOURS Resulted 09/10/19 19:15 Blood Blood Culture - Preliminary NO GROWTH AFTER 24 HOURS Resulted Current Medications Medications (Trade) Dose Ordered Sig/Nelson Route PRN Reason Start Time Stop Time Status Last Admin Dose Admin Acetaminophen (Tylenol) 650 mg Q4H PRN GT Mild Pain/Temp > 100.5 09/11/19 18:45 10/06/19 18:44 09/11/19 18:56 Albuterol/ Ipratropium (Albuterol/ Ipratropium) 3 ml Q4HRT PRN HHN Shortness of Breath 09/09/19 12:00 09/14/19 11:59 Amlodipine Besylate (Norvasc) 5 mg DAILY GT 09/07/19 09:00 10/07/19 08:59 09/12/19 09:27 Dextrose (Dextrose 50%) 25 ml Q30M PRN IV Hypoglycemia 09/06/19 18:00 10/06/19 17:59 Dextrose (Dextrose 50%) 50 ml Q30M PRN IV Hypoglycemia 09/06/19 18:00 10/06/19 17:59 Gabapentin (Neurontin) 250 mg TID GT 09/06/19 20:00 10/06/19 19:59 09/12/19 09:27 Heparin Sodium (Porcine) (Heparin 5000 units/ml) 5,000 units EVERY 12 HOURS SUBQ 09/06/19 21:00 10/06/19 20:59 09/12/19 09:28 Insulin Aspart (NovoLOG) Q6HR SUBQ 09/07/19 00:00 10/07/19 00:00 09/12/19 05:56 Meropenem 1 gm/ Sodium Chloride 55 ml @ 110 mls/hr Q8HR IVPB 09/11/19 11:00 09/16/19 10:59 09/12/19 05:52 Nitroglycerin (Ntg) 0.4 mg Q5M PRN SL Prn Chest Pain 09/06/19 16:00 10/06/19 15:59 Ondansetron HCl (Zofran) 4 mg Q6H PRN IVP Nausea & Vomiting 09/06/19 16:00 10/06/19 15:59 09/10/19 11:30 Polyethylene Glycol (Miralax) 17 gm DAILYPRN PRN GT Constipation 09/06/19 18:15 10/06/19 15:59 Temazepam (Restoril) 15 mg HSPRN PRN GT Insomnia 09/06/19 21:00 09/13/19 15:59 09/07/19 02:01 Vancomycin HCl (Vanco rx to dose) 1 ea DAILY PRN MISC Per rx protocol 09/06/19 16:00 10/06/19 15:59 Vancomycin/Sodium Chloride 275 ml @ 183.333 mls/hr Q48H IVPB 09/11/19 12:00 09/16/19 11:59 09/11/19 12:03 Sowmya Abbasi MD Sep 12, 2019 11:37
[2019-09-12 12:00] VITALS: BP 135/62
--- NOTE | 2019-09-12 12:05 | NUR ---
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
--- NOTE | 2019-09-12 12:08 | Infectious Diseases Prog Note ---
Assessment/Plan Assessment/Plan 79yo gentleman with PMH below [facility] from [facility] for hypoxia and report of cough. Pt was recently admitted at this hospital 08/15-08/22 for sepsis 2/2 R shoulder abscess. Pt was discharged on zosyn and vancomycin. Pt unable to provide history. Per prison records, they were concerned for pneumonia. Pt was started on levaquin/flagyl early August. Fever Leukopenia, SP No lactic acidosis Pseudomonas PNA Acute hypoxic respiratory failure on nasal cannula supplement CXR: Pneumonia versus atelectasis at the left lung base. sputum cx: Pseudomonas 09/11 CXR: New right suprahilar and increasing left basilar infiltrates, since prior study of 5 days earlier Unlikely UTI UA negative Persistent CoNS bacteremia, albeit diff species 09/06 BCx: staph epi 09/08 Bcx: staph hominis 09/10 BCx: GPC in clusters TTE: Focal aortic valve sclerosis with adequate cusp excursion. Thickened mitral valve leaflets with normal excursion. Mitral annulus and aortic root calcification. Pulmonic valve not visualized. Normal tricuspid valve structure. h/o Staph capitis(CoNS) bacteremia 08/15 08/16 BCx: NG h/o R shoulder abscess no cx sent last time agree with surg consult would ideally like wound culture MRSA screen negative HTN FTT Anemia CVA Aphasia G tube malfunction BPH DM Bedbound OA Dementia NH resident DNR Plan: Meropenem #2 and vanc #7. The natural course of pseudomonas pneumonia is to worsen after initiation of antibiotics. continue supportive care. 09/11 DC cefepime #5 f/u repeat bcx aspiration precaution, elevate HOB G tube care skin care Thank you for this consult. [facility] will continue to follow the patient with you. Subjective Allergies: Coded Allergies: HYDROMORPHONE (Unverified Allergy, Unknown, 01/04/18) Subjective Afebrile. Tachycardic. FiO2 fluctuating. Pt is more interactive. denies sob or pain. on cooling blanket. Objective Vital Signs Last 24 Hour Vital Signs Date Time Temp Pulse Resp B/P (MAP) Pulse Ox O2 Delivery O2 Flow Rate FiO2 09/12/19 09:27 113 128/57 09/12/19 09:00 Venturi Mask 09/12/19 08:00 98.6 113 20 128/57 (80) 99 09/12/19 08:00 50 09/12/19 08:00 103 09/12/19 04:00 111 09/12/19 04:00 98.1 111 18 126/73 (90) 99 09/12/19 04:00 50 09/12/19 00:00 97.3 107 20 121/67 (85) 100 09/12/19 00:00 107 09/11/19 21:00 Venturi Mask 09/11/19 20:54 109 18 99 Venturi Mask 12.0 50 09/11/19 20:54 99 Venturi Mask 12.0 50 09/11/19 20:00 118 09/11/19 20:00 98.5 118 22 127/71 (89) 99 09/11/19 20:00 55 09/11/19 16:00 127 09/11/19 16:00 98.6 122 20 118/62 (80) 99 09/11/19 16:00 55 09/11/19 12:25 128 22 97 Venturi Mask 14.0 55 09/11/19 12:25 93 Venturi Mask 14.0 55 Height (Feet): 5 Height (Inches): 11.00 Weight (Pounds): 175 Objective Gen: NAD. cachectic. HEENT: anicteric sclera CV: RRR. no rubs or gallop Resp: RRR. rhonchi Abd: soft. no TTP Ext: no LE edema Skin: warm MSK: R shoulder previous pocket with slight discharge Microbiology Date/Time Source Procedure Growth Status 09/10/19 19:30 Blood Blood Culture - Preliminary Resulted 09/10/19 19:15 Blood Blood Culture - Preliminary Resulted Current Medications Medications (Trade) Dose Ordered Sig/Nelson Route PRN Reason Start Time Stop Time Status Last Admin Dose Admin Acetaminophen (Tylenol) 650 mg Q4H PRN GT Mild Pain/Temp > 100.5 09/11/19 18:45 10/06/19 18:44 09/11/19 18:56 Albuterol/ Ipratropium (Albuterol/ Ipratropium) 3 ml Q4HRT PRN HHN Shortness of Breath 09/09/19 12:00 09/14/19 11:59 Amlodipine Besylate (Norvasc) 5 mg DAILY GT 09/07/19 09:00 10/07/19 08:59 09/12/19 09:27 Dextrose (Dextrose 50%) 25 ml Q30M PRN IV Hypoglycemia 09/06/19 18:00 10/06/19 17:59 Dextrose (Dextrose 50%) 50 ml Q30M PRN IV Hypoglycemia 09/06/19 18:00 10/06/19 17:59 Gabapentin (Neurontin) 250 mg TID GT 09/06/19 20:00 10/06/19 19:59 09/12/19 09:27 Heparin Sodium (Porcine) (Heparin 5000 units/ml) 5,000 units EVERY 12 HOURS SUBQ 09/06/19 21:00 10/06/19 20:59 09/12/19 09:28 Insulin Aspart (NovoLOG) Q6HR SUBQ 09/07/19 00:00 10/07/19 00:00 09/12/19 05:56 Meropenem 1 gm/ Sodium Chloride 55 ml @ 110 mls/hr Q8HR IVPB 09/11/19 11:00 09/16/19 10:59 09/12/19 05:52 Nitroglycerin (Ntg) 0.4 mg Q5M PRN SL Prn Chest Pain 09/06/19 16:00 10/06/19 15:59 Ondansetron HCl (Zofran) 4 mg Q6H PRN IVP Nausea & Vomiting 09/06/19 16:00 10/06/19 15:59 09/10/19 11:30 Polyethylene Glycol (Miralax) 17 gm DAILYPRN PRN GT Constipation 09/06/19 18:15 10/06/19 15:59 Temazepam (Restoril) 15 mg HSPRN PRN GT Insomnia 09/06/19 21:00 09/13/19 15:59 09/07/19 02:01 Vancomycin HCl (Vanco rx to dose) 1 ea DAILY PRN MISC Per rx protocol 09/06/19 16:00 10/06/19 15:59 Vancomycin/Sodium Chloride 275 ml @ 183.333 mls/hr Q48H IVPB 09/11/19 12:00 09/16/19 11:59 09/11/19 12:03 Garret Black MD Sep 12, 2019 12:08
--- NOTE | 2019-09-12 15:05 | NUR ---
NURSE NOTES: Daughter refusing discharge because she does not feel her dad is healthy enough to go back to [facility]. She does not want her father to be on comfort care, only DNR/DNI. MD notified. strategic partner development manager notified as well.
[2019-09-12 16:00] VITALS: BP 110/62
--- NOTE | 2019-09-12 18:36 | NUR ---
NURSE NOTES: Per Dr. Ayleen sterling to hold discharge for now.
--- NOTE | 2019-09-12 19:50 | NUR ---
HAND-OFF: Report given to Nino Tapia RN. Patient placed back on venturi mask because he was desating 88-90%. Now O2 92%. RT at bedside.
--- NOTE | 2019-09-12 19:51 | NUR ---
NURSE NOTES: Received pt from SERGIO Bonilla. Pt is awake and resting in bed in no distress placed on venturi mask, saturating at 94% with HOB elevated. Iv site intact. G-tube intact and patent feeding at goal of 50ml/hr. Benavidez catheter intact and patent, draining. Bed locked in lowest position, bed alarm on, call light within reach. will continue with plan of care.
[2019-09-12 20:00] VITALS: BP 101/57
[2019-09-12] MEDS: Acetaminophen 650mg/20.3ml GT PRN (21:12)
[2019-09-13] VITALS: BP 105/45
[2019-09-13] MEDS: NovoLOG Insulin Flexpen SUBQ SCH ×4 (00:07→17:27)
[2019-09-13] MEDS: Acetaminophen 650mg/20.3ml GT PRN ×2 (02:03→21:40)
[2019-09-13 04:00] VITALS: BP 98/44
[2019-09-13] MEDS: Meropenem 1 GM in NS 55 ML IVPB SCH ×3 (05:50→21:40)
--- NOTE | 2019-09-13 07:56 | NUR ---
HAND-OFF: Report given to SERGIO Lozano. Endorsed plan of care.
--- NOTE | 2019-09-13 07:59 | NUR ---
NURSE NOTES: Received report from Nino/RN, Patient is lying semi-ocampo's, resting comfortably, On Venturi mask 45%, No acute distress/SOB noted. AAO x 1, On G-tube running @ 50cc/hr. IV site on Left Hand, patent, no bleeding or infiltration noted. Benavidez draining well to gravity. Bed in low position and locked, Bed alarm engaged, side rails up x3. Call light within reach, Encouraged to use call light when needed. Will continue plan of care.
[2019-09-13 08:00] VITALS: BP 136/63
--- NOTE | 2019-09-13 08:20 | Infectious Diseases Prog Note ---
Assessment/Plan Assessment/Plan 79yo gentleman with PMH below presents from detention for hypoxia and report of cough. Pt was recently admitted at this hospital 08/15-08/22 for sepsis 2/2 R shoulder abscess. Pt was discharged on zosyn and vancomycin. Pt unable to provide history. Per detention records, they were concerned for pneumonia. Pt was started on levaquin/flagyl early August. Fever Leukopenia, SP No lactic acidosis Pseudomonas PNA Acute hypoxic respiratory failure on nasal cannula supplement CXR: Pneumonia versus atelectasis at the left lung base. sputum cx: Pseudomonas 09/11 CXR: New right suprahilar and increasing left basilar infiltrates, since prior study of 5 days earlier Unlikely UTI UA negative Persistent CoNS bacteremia, albeit diff species. 2/2 pressure ulcers? shoulder abscess? thrombophlebitis? 09/06 BCx: staph epi 09/08 Bcx: staph hominis 09/10 BCx: GPC in clusters TTE: Focal aortic valve sclerosis with adequate cusp excursion. Thickened mitral valve leaflets with normal excursion. Mitral annulus and aortic root calcification. Pulmonic valve not visualized. Normal tricuspid valve structure. no central lines or pacemaker h/o Staph capitis(CoNS) bacteremia 08/15 08/16 BCx: NG h/o R shoulder abscess 08/20 cx: Proteus, CoNS MRSA screen negative HTN FTT Anemia CVA Aphasia G tube malfunction BPH DM Bedbound OA Dementia NH resident DNR Plan: Meropenem #3 and vanc #8. The natural course of pseudomonas pneumonia is to worsen after initiation of antibiotics. continue supportive care. 09/11 DC cefepime #5 f/u repeat bcx aspiration precaution, elevate HOB G tube care skin care requested repeat surgical and wound care nurse evaluation of wounds duplex US Thank you for this consult. [facility] will continue to follow the patient with you. Subjective Allergies: Coded Allergies: HYDROMORPHONE (Unverified Allergy, Unknown, 01/04/18) Subjective Tmax 100.3 Tachycardic. Pt denies sob, chills, abdominal pain. Objective Vital Signs Last 24 Hour Vital Signs Date Time Temp Pulse Resp B/P (MAP) Pulse Ox O2 Delivery O2 Flow Rate FiO2 09/13/19 08:06 100 Venturi Mask 10.0 45 09/13/19 08:06 117 20 100 Venturi Mask 10.0 45 09/13/19 04:00 50 09/13/19 04:00 99 09/13/19 04:00 99.8 99 20 98/44 (62) 100 09/13/19 02:33 99.8 09/13/19 00:00 109 09/13/19 00:00 99.9 109 20 105/45 (65) 99 09/12/19 21:00 Venturi Mask 09/12/19 20:00 121 09/12/19 20:00 50 09/12/19 20:00 100.3 121 20 101/57 (72) 97 09/12/19 16:00 2.0 09/12/19 16:00 107 09/12/19 16:00 100.0 126 20 110/62 (78) 96 09/12/19 12:00 107 09/12/19 12:00 98.4 115 20 135/62 (86) 99 09/12/19 12:00 50 09/12/19 09:27 113 128/57 09/12/19 09:00 Venturi Mask Height (Feet): 5 Height (Inches): 11.00 Weight (Pounds): 167 Objective Gen: NAD. cachectic. HEENT: anicteric sclera CV: RRR. no rubs or gallop Resp: RRR. rhonchi Abd: soft. no TTP Ext: no LE edema Skin: warm MSK: R shoulder previous pocket with slight discharge Microbiology Date/Time Source Procedure Growth Status 09/10/19 19:30 Blood Blood Culture - Preliminary Gram Positive Cocci Resulted 09/10/19 19:15 Blood Blood Culture - Preliminary Gram Positive Cocci Resulted Current Medications Medications (Trade) Dose Ordered Sig/Nelson Route PRN Reason Start Time Stop Time Status Last Admin Dose Admin Acetaminophen (Tylenol) 650 mg Q4H PRN GT Mild Pain/Temp > 100.5 09/11/19 18:45 10/06/19 18:44 09/13/19 02:03 Albuterol/ Ipratropium (Albuterol/ Ipratropium) 3 ml Q4HRT PRN HHN Shortness of Breath 09/09/19 12:00 09/14/19 11:59 Amlodipine Besylate (Norvasc) 5 mg DAILY GT 09/07/19 09:00 10/07/19 08:59 09/12/19 09:27 Dextrose (Dextrose 50%) 25 ml Q30M PRN IV Hypoglycemia 09/06/19 18:00 10/06/19 17:59 Dextrose (Dextrose 50%) 50 ml Q30M PRN IV Hypoglycemia 09/06/19 18:00 10/06/19 17:59 Gabapentin (Neurontin) 250 mg TID GT 09/06/19 20:00 10/06/19 19:59 09/12/19 17:42 Heparin Sodium (Porcine) (Heparin 5000 units/ml) 5,000 units EVERY 12 HOURS SUBQ 09/06/19 21:00 10/06/19 20:59 09/12/19 21:13 Insulin Aspart (NovoLOG) Q6HR SUBQ 09/07/19 00:00 10/07/19 00:00 09/13/19 00:07 Meropenem 1 gm/ Sodium Chloride 55 ml @ 110 mls/hr Q8HR IVPB 09/11/19 11:00 09/16/19 10:59 09/13/19 05:50 Nitroglycerin (Ntg) 0.4 mg Q5M PRN SL Prn Chest Pain 09/06/19 16:00 10/06/19 15:59 Ondansetron HCl (Zofran) 4 mg Q6H PRN IVP Nausea & Vomiting 09/06/19 16:00 10/06/19 15:59 09/10/19 11:30 Polyethylene Glycol (Miralax) 17 gm DAILYPRN PRN GT Constipation 09/06/19 18:15 10/06/19 15:59 Temazepam (Restoril) 15 mg HSPRN PRN GT Insomnia 09/06/19 21:00 09/13/19 15:59 09/07/19 02:01 Vancomycin HCl (Vanco rx to dose) 1 ea DAILY PRN MISC Per rx protocol 09/06/19 16:00 10/06/19 15:59 Vancomycin/Sodium Chloride 275 ml @ 183.333 mls/hr Q48H IVPB 09/11/19 12:00 09/16/19 11:59 09/11/19 12:03 Garret Black MD Sep 13, 2019 08:20
[2019-09-13] MEDS: Gabapentin 300 MG/6 ML Soln GT SCH ×3 (09:45→17:19)
--- NOTE | 2019-09-13 09:49 | NUR ---
SPOKE TO MELISSA SAMANIEGO) [phone] CONCERN ABOUT DISCHARGE WILL BE BY LATER TO SPEAK TO DR MARCUM Addendum: 09/13/19 at 0956 by TRAY ESPINO LVN DISCHARGE HELD: SPOKE TO MELISSA SAMANIEGO) [phone] CONCERN ABOUT DISCHARGE WILL BE BY LATER TO SPEAK TO DR MARCUM
[2019-09-13] MEDS: Heparin 5000 units/ml inj SUBQ SCH ×2 (09:50→21:05)
--- NOTE | 2019-09-13 11:35 | Pulmonology Progress Note ---
Assessment/Plan Problems: (1) Healthcare-associated pneumonia (2) At high risk for aspiration (3) History of CVA (cerebrovascular accident) (4) Advanced dementia (5) G tube feedings (6) HTN (hypertension) Assessment/Plan CT of shoulder to rule out recurrence of abscess adjust abx, on meropenem and vancomycin respiratory treatment titrate fio2 to sat of 92% aspiration precaution dvt prophylaxis blood cultures are persistently positive, with different strains of coag negative staff Subjective ROS Limited/Unobtainable: No Interval Events: had fever HEENT: Repors: no symptoms Allergies: Coded Allergies: HYDROMORPHONE (Unverified Allergy, Unknown, 01/04/18) Objective Last 24 Hour Vital Signs Date Time Temp Pulse Resp B/P (MAP) Pulse Ox O2 Delivery O2 Flow Rate FiO2 09/13/19 09:45 117 136/63 09/13/19 08:06 100 Venturi Mask 10.0 45 09/13/19 08:06 117 20 100 Venturi Mask 10.0 45 09/13/19 08:00 98.6 116 16 136/63 (87) 100 09/13/19 04:00 50 09/13/19 04:00 99 09/13/19 04:00 99.8 99 20 98/44 (62) 100 09/13/19 02:33 99.8 09/13/19 00:00 109 09/13/19 00:00 99.9 109 20 105/45 (65) 99 09/12/19 21:00 Venturi Mask 09/12/19 20:00 121 09/12/19 20:00 50 09/12/19 20:00 100.3 121 20 101/57 (72) 97 09/12/19 16:00 2.0 09/12/19 16:00 107 09/12/19 16:00 100.0 126 20 110/62 (78) 96 09/12/19 12:00 107 09/12/19 12:00 98.4 115 20 135/62 (86) 99 09/12/19 12:00 50 Intake and Output 09/12/19 09/13/19 19:00 07:00 Intake Total 855 ml Output Total 800 ml Balance 55 ml Intake Free Water 250 ml IV Total 55 ml Tube Feeding 550 ml Output Urine Total 800 ml General Appearance: cachetic HEENT: normocephalic, atraumatic Respiratory/Chest: chest wall non-tender, lungs clear Cardiovascular: normal peripheral pulses, normal rate Abdomen: normal bowel sounds Genitourinary: normal external genitalia Skin: no rash 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 Lymphatic: no neck adenopathy Microbiology Date/Time Source Procedure Growth Status 09/10/19 19:30 Blood Blood Culture - Preliminary Gram Positive Cocci Resulted 09/10/19 19:15 Blood Blood Culture - Preliminary Gram Positive Cocci Resulted Current Medications Medications (Trade) Dose Ordered Sig/Nelson Route PRN Reason Start Time Stop Time Status Last Admin Dose Admin Acetaminophen (Tylenol) 650 mg Q4H PRN GT Mild Pain/Temp > 100.5 09/11/19 18:45 10/06/19 18:44 09/13/19 02:03 Albuterol/ Ipratropium (Albuterol/ Ipratropium) 3 ml Q4HRT PRN HHN Shortness of Breath 09/09/19 12:00 09/14/19 11:59 Amlodipine Besylate (Norvasc) 5 mg DAILY GT 09/07/19 09:00 10/07/19 08:59 09/13/19 09:45 Dextrose (Dextrose 50%) 25 ml Q30M PRN IV Hypoglycemia 09/06/19 18:00 10/06/19 17:59 Dextrose (Dextrose 50%) 50 ml Q30M PRN IV Hypoglycemia 09/06/19 18:00 10/06/19 17:59 Gabapentin (Neurontin) 250 mg TID GT 09/06/19 20:00 10/06/19 19:59 09/13/19 09:45 Heparin Sodium (Porcine) (Heparin 5000 units/ml) 5,000 units EVERY 12 HOURS SUBQ 09/06/19 21:00 10/06/19 20:59 09/13/19 09:50 Insulin Aspart (NovoLOG) Q6HR SUBQ 09/07/19 00:00 10/07/19 00:00 09/13/19 00:07 Meropenem 1 gm/ Sodium Chloride 55 ml @ 110 mls/hr Q8HR IVPB 09/11/19 11:00 09/16/19 10:59 09/13/19 05:50 Nitroglycerin (Ntg) 0.4 mg Q5M PRN SL Prn Chest Pain 09/06/19 16:00 10/06/19 15:59 Ondansetron HCl (Zofran) 4 mg Q6H PRN IVP Nausea & Vomiting 09/06/19 16:00 10/06/19 15:59 09/10/19 11:30 Polyethylene Glycol (Miralax) 17 gm DAILYPRN PRN GT Constipation 09/06/19 18:15 10/06/19 15:59 Sodium Chloride 1,000 ml @ 75 mls/hr [id number] IV 09/13/19 11:15 10/13/19 11:14 Temazepam (Restoril) 15 mg HSPRN PRN GT Insomnia 09/06/19 21:00 09/13/19 15:59 09/07/19 02:01 Vancomycin HCl (Vanco rx to dose) 1 ea DAILY PRN MISC Per rx protocol 09/06/19 16:00 10/06/19 15:59 Vancomycin/Sodium Chloride 275 ml @ 183.333 mls/hr Q48H IVPB 09/11/19 12:00 09/16/19 11:59 09/11/19 12:03 Sowmya Abbasi MD Sep 13, 2019 11:35
[2019-09-13 12:00] VITALS: BP 124/56
[2019-09-13] MEDS: Vancomycin 1.25gm/NS Premix IVPB SCH (12:06)
--- NOTE | 2019-09-13 12:28 | NUR ---
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 NO ASPIRATION NOR SIGNIFICANT PENETRATION BUT HAS HIGH RISK OF ASPIRATION BEFORE/DURING/AFTER THE SWALLOW. LIMITED STUDY TO TSP THIN LIQUIDS X2 AND REQUIRED OP SUCTION OF MILD/MOD AMOUNTS IN PHARYNGEAL (PYRIFORM SINUS > VALLECULAE) AFTER THE SWALLOW DUE TO SIGNIFICANT OROPHARYNGEAL DYSMOTILITY. COMPONENTS/DEFICITS THAT INCREASE ASP RISK AND DECREASE SWALLOW EFFICIENCY: Oral Prep oral apraxia sensory awareness deficits Oral Impairment Lip Closure left side Tongue Control Bolus transport/lingual motion Oral residue poor sensation for residue Init. pharyngeal swallow (ABSENT TO VERY DELAYED AND WEAK EVEN WITH THIN LIQUIDS) Pharyngeal Impairment Laryngeal elevation (LE) Ant. hyoid excursion (AHE) Epiglottic movement Laryngeal vestibular closure Pharyngeal stripping wave Pharyngeal segment Opening Tongue base retraction Pharyngeal residue Decreased pharyngeal sensation ESOPHAGEAL PHASE LIMITED VIEW IN LATERAL APPEARS GROSSLY FUNCTIONAL TRIAL TX LIMITED, DID NOT SWALLOW TO COMMAND AT TIMES, 2ND SWALLOW VERY WEAK AND REQUIRED OP SUCTION OF RESIDUE (COUGH UNPRODUCTIVE) RECOMMEND: CONTINUE WITH NO PO FOR NOW CONTINUE WITH ORAL CARE/SUCTION PRN AND NONORAL FEEDINGS CONSIDER TRIAL TX WITH [facility] GLAZIER AT [facility] D/W SERGIO MOSCOSO AND HIS DAUGHTER LEFT MESSAGE WITH
[2019-09-13] MEDS ORDERED: Varibar Pudding 230ml MC PRN (12:45)
[2019-09-13] MEDS ORDERED: Varibar Nectar 240ml MC PRN (12:45)
[2019-09-13] MEDS ORDERED: Varibar Honey 250ml MC PRN (12:45)
[2019-09-13 16:00] VITALS: BP 119/52
--- NOTE | 2019-09-13 16:44 | Diagnostic Imaging Report ---
Indication: History of recent right shoulder region soft tissue debridement, pain, abscess Technique: No IV contrast utilized, reason not stated. Spiral acquisitions obtained through the right shoulder Multiplanar reconstructions were generated. Total dose length product 675 mGycm. CTDIvol(s) 23 mGy. Radiation dose was minimized using automated exposure control Comparison: 08/22/2019 Findings: Previously demonstrated soft tissue defect posterior to the superior border of the scapula is largely closed, with only one small residual gas bubble and a small superficial depressed area present. There is some soft tissue thickening in this area which appears solid, likely represents scarring or phlegmon. No definite discrete focal fluid collection is demonstrated, although this is difficult to exclude with any confidence. No new soft tissue collections are demonstrated. Again demonstrated is extensive chronic appearing osseous deformity, with extensive heterotopic new bone seen surrounding the distal scapula and bridging it to the proximal humerus. There is also some heterotopic new bone seen in the region of the right sternoclavicular junction and right first costomanubrial junction. This is unchanged. There is evidence of prior cervical spine surgical fusion. Multifocal infiltrates are now present scattered throughout the right lung. There is also dense consolidation in the left lower lobe. Impression: Since 08/22/2019, previously demonstrated right posterior shoulder superficial wound is largely closed. There is some residual gas and what appears to be scar tissue in the area. No definite abscess currently, although evaluation for such is limited in the absence of IV contrast Multifocal bilateral pulmonary parenchymal infiltrates, presumably pneumonia, are noted Extensive heterotopic new bone surrounding the right shoulder is again demonstrated. Correlate with clinical history Evidence of prior cervical spine fusion surgery The CT scanner at [facility] is accredited by the [employer] and the scans are performed using protocols designed to limit radiation exposure to as low as reasonably achievable to attain images of sufficient resolution adequate for diagnostic evaluation.
--- NOTE | 2019-09-13 19:45 | NUR ---
HAND-OFF: Report given to Farzad/RN, Patient is in stable condition. Endorsed plan of care.
--- NOTE | 2019-09-13 19:50 | NUR ---
NURSE NOTES: Received report from Shahid Foreman RN. Patient in bed with no S/S of acute pain or discomfort noted at this time. Kept clean, dry, and comfortable in bed. Bedbound with BLE and BUE contractures, cleaned and changed PRN when soiled. On GTF for prescribed formula per MD and dietary recommendation; no residual noted and tolerating well. IV line intact and patent with NS running at 75/hr. WC consult and treatment orders active. Safety precaution in place; siderails X3 up, call light within reach, bed in lowest position, brakes and alarm on at all times. Needs and wants anticipated and attended. Will continue plan of care.
[2019-09-13 20:00] VITALS: BP 127/72
[2019-09-14] VITALS (7 sets, daily range): BP systolic 115–147; BP diastolic 63–84
--- NOTE | 2019-09-14 01:10 | NUR ---
INTER-FACILITY TRANSFER: Patient transferred to [facility], per Fer Abbasi MD. Report given to Lora Tenorio RN. No belongings verified upon transfer. Floor orders will be transferred per protocol. Endorsed plan of care. WCP taken and recorded with RN.
--- NOTE | 2019-09-14 01:15 | NUR ---
NURSE NOTES: Patient transferred from Telemetry to Med surg. Received report from SERGIO Panda. Patient is awake and nonverbal. On Venturi mask 45% with no signs of distress or SOB. G-tube in place and running Osmolite 1.5 @ 50cc/hr. Left Hand IV site intact and patent. Fluids running. Benavidez intact and draining well. Bed locked and in lowest position with bed alarm on. Wound photos taken. Call light within reach. Will continue to monitor.
[2019-09-14] MEDS ORDERED: Nitroglycerin Subl 0.4mg tab SL PRN (02:15)
[2019-09-14] MEDS ORDERED: Albuterol/Ipratropium 3ml neb HHN PRN (03:00)
[2019-09-14] MEDS: Meropenem 1 GM in NS 55 ML IVPB SCH ×3 (05:13→21:47)
[2019-09-14] MEDS: NovoLOG Insulin Flexpen SUBQ SCH ×4 (05:43→18:42)
--- NOTE | 2019-09-14 07:10 | NUR ---
NURSE NOTES: HANDOFF RECEIVED FROM SERGIO GONSALEZ. PATIENT RECEIVED RESTING IN BED, NO OBVIOUS SIGNS OF DISTRESS. PATIENT HAS LEFT HAND IV SITE RUNNING PRESCRIBED FLUIDS. PATIENT ON VENTURI MASK. BED IN THE LOW AND LOCKED POSITION WITH CALL LIGHT WITHIN REACH. WILL CONTINUE TO MONITOR PATIENT.
--- NOTE | 2019-09-14 07:44 | NUR ---
HAND-OFF: Report given to SERGIO Cornelius.
--- NOTE | 2019-09-14 08:56 | NUR ---
NURSE NOTES: PATIENT WAS DESATTING, CALLED RESPIRATORY WHO PERFORMED NASAL SUCTIONING. PATIENT NOW 02 SATURATION NOW 94
[2019-09-14] MEDS ORDERED: Heparin 5000 units/ml inj SUBQ SCH (09:00)
[2019-09-14 09:02] LABS: BASOPHILS % (AUTO) 1.3 % (0.0-2.0); EOSINOPHILS % (AUTO) 1.2 % (0.0-3.0); HEMOGLOBIN 11.7 G/DL (14.2-18.0); LYMPHOCYTES % (AUTO) 14.7 % (20.0-45.0); MEAN CORPUSCULAR VOLUME 98 FL (80-99); NEUTROPHILS % (AUTO) 77.7 % (45.0-75.0); PLATELET COUNT 476 K/UL (150-450); RED BLOOD COUNT 3.68 M/UL (4.70-6.10); RED CELL DISTRIBUTION WIDTH 13.7 % (11.6-14.8); WHITE BLOOD COUNT 7.3 K/UL (4.8-10.8)
[2019-09-14] MEDS: Gabapentin 300 MG/6 ML Soln GT SCH ×3 (09:04→18:42)
[2019-09-14 09:18] LABS: ALANINE AMINOTRANSFERASE 32 U/L (12-78); ALBUMIN 2.2 G/DL (3.4-5.0); ALBUMIN/GLOBULIN RATIO 0.3 (1.0-2.7); ALKALINE PHOSPHATASE 89 U/L (46-116); ANION GAP 1 mmol/L (5-15); ASPARTATE AMINO TRANSFERASE 42 U/L (15-37); BILIRUBIN,TOTAL 0.4 MG/DL (0.2-1.0); BLOOD UREA NITROGEN 15 mg/dL (7-18); CALCIUM 9.1 MG/DL (8.5-10.1); CARBON DIOXIDE 34 MMOL/L (21-32); CHLORIDE 99 MMOL/L (98-107); CREATININE 0.7 MG/DL (0.55-1.30); POTASSIUM 4.2 MMOL/L (3.5-5.1); SODIUM 134 MMOL/L (136-145)
--- NOTE | 2019-09-14 10:50 | NUR ---
NURSE NOTES: SPECIAL EDUCATOR CHRIS ASKED FOR DIET TO BE CHANGED PATIENT IS DIABETIC. CHANGED DIET TO GLUCERNA 1.5 PER HER RECOMMENDATION.
--- NOTE | 2019-09-14 10:53 | NUR ---
NURSE NOTES: NOTICED PATIENT HAS SOME SCANT BLOOD IN THE PEREZ TUBING AND SOME SMALL TRACES OF FRESH BLOOD IN THE STOOL. PATIENT WAS GIVEN HEPARIN THIS AM, NOTIFIED OF PATIENTS CONDITION.
--- NOTE | 2019-09-14 11:23 | NUR ---
NURSE NOTES: DR MARCUM STOPPED HEPARIN. PATIENT ALSO HAS A FEVER OF 102.2 ADMINISTERING TYLENOL.
--- NOTE | 2019-09-14 11:23 | NUR ---
NURSE NOTES: NOTIFIED DR MARCUM PER PATIENTS FEVER.
[2019-09-14] MEDS: Acetaminophen 650mg/20.3ml GT PRN ×2 (11:24→17:14)
--- NOTE | 2019-09-14 12:09 | NUR ---
NURSE NOTES: DR MARCUM INFORMED ME TO NOTIFY ID DOCTOR REGARDING PATIENTS TEMPERATURE. CONTACTED DR BLISS TO INFORM DOCTOR OF PATIENTS TEMPERATURE.
[2019-09-14] MEDS ORDERED: Varibar Pudding 230ml MC PRN (12:45)
[2019-09-14] MEDS ORDERED: Varibar Honey 250ml MC PRN (12:45)
[2019-09-14] MEDS ORDERED: Varibar Nectar 240ml MC PRN (12:45)
--- NOTE | 2019-09-14 13:12 | Diagnostic Imaging Report ---
APPROVED REPORT CPT Code: 19045 Present Symptoms Comments: Edema RIGHT UPPER EXTREMITY: Venous imaging reveals patency of the internal jugular, subclavian, axillary and brachial veins. The remaining segments are within normal limits. There is no evidence of thrombus within the internal jugular, subclavian and distal brachial veins. Doppler indicates normal spontaneous flow within these venous segments. LEFT UPPER EXTREMITY: Venous imaging reveals patency of the internal jugular, subclavian, axillary and brachial veins. The remaining segments are within normal limits. There is no evidence of thrombus within the internal jugular, subclavian and distal brachial veins. Doppler indicates normal spontaneous flow within these venous segments. Technically difficult/limited visualization due atrophied state caused by paralysis and patients inability to position of the left arm. No acute DVT, bilaterally.
--- NOTE | 2019-09-14 13:13 | Pulmonology Progress Note ---
Assessment/Plan Problems: (1) Healthcare-associated pneumonia (2) At high risk for aspiration (3) History of CVA (cerebrovascular accident) (4) Advanced dementia (5) G tube feedings (6) HTN (hypertension) Assessment/Plan CT of shoulder didn't show any abscess, but showed extensive lung infiltrate adjust abx, on meropenem and vancomycin respiratory treatment titrate fio2 to sat of 92% aspiration precaution dvt prophylaxis blood cultures are persistently positive, with different strains of coag negative staff Subjective ROS Limited/Unobtainable: Yes Allergies: Coded Allergies: HYDROMORPHONE (Unverified Allergy, Unknown, 01/04/18) Objective Last 24 Hour Vital Signs Date Time Temp Pulse Resp B/P (MAP) Pulse Ox O2 Delivery O2 Flow Rate FiO2 09/14/19 12:00 102.2 125 22 147/84 (105) 95 09/14/19 12:00 45 09/14/19 11:54 101.5 09/14/19 11:36 95 Venturi Mask 12.0 55 09/14/19 11:35 110 20 95 Venturi Mask 12.0 55 09/14/19 09:04 125 139/82 09/14/19 09:00 Venturi Mask 09/14/19 08:00 99.7 125 22 139/82 (101) 84 09/14/19 08:00 45 09/14/19 03:54 45 09/14/19 03:38 97.2 107 20 135/78 (97) 94 09/14/19 01:20 98.2 113 16 121/65 (83) 100 09/14/19 00:00 99.5 103 20 115/70 (85) 96 09/14/19 00:00 105 09/13/19 22:10 100.4 09/13/19 21:11 114 20 98 Venturi Mask 10.0 45 09/13/19 21:11 99 Venturi Mask 10.0 45 09/13/19 21:00 Venturi Mask 09/13/19 20:00 101.2 120 23 127/72 (90) 95 09/13/19 20:00 108 09/13/19 20:00 45 09/13/19 16:00 109 09/13/19 16:00 97.9 111 15 119/52 (74) 100 09/13/19 16:00 45 Intake and Output 09/13/19 09/14/19 19:00 07:00 Intake Total 550 ml Output Total 600 ml 1000 ml Balance -600 ml -450 ml Intake Free Water 250 ml Tube Feeding 300 ml Output Urine Total 600 ml 1000 ml # Bowel Movements 4 General Appearance: WD/WN HEENT: normocephalic, atraumatic Respiratory/Chest: chest wall non-tender, lungs clear Cardiovascular: normal rate, regularly irregular Abdomen: normal bowel sounds, non distended Extremities: no cyanosis Skin: no lesions Laboratory Tests 09/14/19 08:45: White Blood Count 7.3, Red Blood Count 3.68L, Hemoglobin 11.7L, Hematocrit 36.0L , Mean Corpuscular Volume 98, Mean Corpuscular Hemoglobin 31.8H, Mean Corpuscular Hemoglobin Concent 32.5, Red Cell Distribution Width 13.7, Platelet Count 476H, Mean Platelet Volume 6.7, Neutrophils (%) (Auto) 77.7H, Lymphocytes (%) (Auto) 14.7L, Monocytes (%) (Auto) 5.0, Eosinophils (%) (Auto) 1.2, Basophils (%) (Auto) 1.3, Erythrocyte Sedimentation Rate 52H, Sodium Level 134L , Potassium Level 4.2, Chloride Level 99, Carbon Dioxide Level 34H, Anion Gap 1L , Blood Urea Nitrogen 15, Creatinine 0.7, Estimat Glomerular Filtration Rate , Glucose Level 159H, Calcium Level 9.1, Phosphorus Level 2.0L, Magnesium Level 1.7L, Total Bilirubin 0.4, Aspartate Amino Transf (AST/SGOT) 42H, Alanine Aminotransferase (ALT/SGPT) 32, Alkaline Phosphatase 89, C-Reactive Protein, Quantitative 8.6H, Total Protein 9.4H, Albumin 2.2L, Globulin 7.2, Albumin/ Globulin Ratio 0.3L Current Medications Medications (Trade) Dose Ordered Sig/Nelson Route PRN Reason Start Time Stop Time Status Last Admin Dose Admin Acetaminophen (Tylenol) 650 mg Q4H PRN GT Mild Pain/Temp > 100.5 09/14/19 02:45 10/06/19 18:44 09/14/19 11:24 Amlodipine Besylate (Norvasc) 5 mg DAILY GT 09/14/19 09:00 10/07/19 08:59 09/14/19 09:04 Barium Sulfate (Varibar Honey) 250 ml NOW PRN MC RAD 09/14/19 12:45 09/16/19 12:37 Barium Sulfate (Varibar [place]) 240 ml NOW PRN MC RAD 09/14/19 12:45 09/16/19 12:37 Barium Sulfate (Varibar Pudding) 230 ml NOW PRN MC RAD 09/14/19 12:45 09/16/19 12:37 Dextrose (Dextrose 50%) 25 ml Q30M PRN IV Hypoglycemia 09/14/19 02:30 10/06/19 17:59 Dextrose (Dextrose 50%) 50 ml Q30M PRN IV Hypoglycemia 09/14/19 02:30 10/06/19 17:59 Gabapentin (Neurontin) 250 mg TID GT 09/14/19 09:00 10/06/19 19:59 09/14/19 13:03 Insulin Aspart (NovoLOG) Q6HR SUBQ 09/14/19 06:00 10/07/19 00:00 09/14/19 13:01 Meropenem 1 gm/ Sodium Chloride 55 ml @ 110 mls/hr Q8HR IVPB 09/14/19 06:00 09/16/19 10:59 09/14/19 05:13 Nitroglycerin (Ntg) 0.4 mg Q5M PRN SL Prn Chest Pain 09/14/19 02:15 10/06/19 15:59 Ondansetron HCl (Zofran) 4 mg Q6H PRN IVP Nausea & Vomiting 09/14/19 04:00 10/06/19 15:59 Polyethylene Glycol (Miralax) 17 gm DAILYPRN PRN GT Constipation 09/14/19 18:15 10/06/19 15:59 Sodium Chloride 1,000 ml @ 75 mls/hr [id number] IV 09/14/19 02:15 10/13/19 11:14 Vancomycin HCl (Vanco rx to dose) 1 ea DAILY PRN MISC Per rx protocol 09/14/19 09:00 10/06/19 15:59 Vancomycin/Sodium Chloride 275 ml @ 183.333 mls/hr Q48H IVPB 09/15/19 12:00 09/16/19 11:59 Sowmya Abbasi MD Sep 14, 2019 13:13
--- NOTE | 2019-09-14 13:30 | NUR ---
NURSE NOTES: DR MARMOLEJO WANTED ORDERS FOR BLOOD CULTURE X2 AFTER NOTIFYING HER REGARDING PATIENTS FEVER.
--- NOTE | 2019-09-14 13:36 | Infectious Diseases Prog Note ---
Assessment/Plan Assessment/Plan 79yo gentleman with PMH below presents from [facility] for hypoxia and report of cough. Pt was recently admitted at this hospital 08/15-08/22 for sepsis 2/2 R shoulder abscess. Pt was discharged on zosyn and vancomycin. Pt unable to provide history. Per halfway records, they were concerned for pneumonia. Pt was started on levaquin/flagyl early August. Fever Leukopenia, SP No lactic acidosis Pseudomonas PNA Acute hypoxic respiratory failure on nasal cannula supplement CXR: Pneumonia versus atelectasis at the left lung base. sputum cx: Pseudomonas 09/11 CXR: New right suprahilar and increasing left basilar infiltrates, since prior study of 5 days earlier Unlikely UTI UA negative Persistent CoNS bacteremia, albeit diff species. 2/2 pressure ulcers? shoulder abscess? cervical spine prosthetic infection? R shoulder osteomyelitis? h/o cervical spine fusion...likely hardware present no pacemaker or central line 09/06 BCx: staph epi 09/08 Bcx: staph hominis 09/10 BCx: Staph capitis TTE: Focal aortic valve sclerosis with adequate cusp excursion. Thickened mitral valve leaflets with normal excursion. Mitral annulus and aortic root calcification. Pulmonic valve not visualized. Normal tricuspid valve structure. 09/13 UE/LE duplex: negative for DVT 09/13 bcx: P 09/14 BCx: P h/o Staph capitis(CoNS) bacteremia 08/15 08/16 BCx: NG h/o R shoulder abscess 08/20 cx: Proteus, CoNS 09/13 CT shoulder: Since 08/22/2019, previously demonstrated right posterior shoulder superficial wound is largely closed. There is some residual gas and what appears to be scar tissue in the area. No definite abscess currently, although evaluation for such is limited in the absence of IV contrast. Multifocal bilateral pulmonary parenchymal infiltrates, presumably pneumonia, are noted. Extensive heterotopic new bone surrounding the right shoulder is again demonstrated. Correlate with clinical history. Evidence of prior cervical spine fusion surgery. MRSA screen negative HTN FTT Anemia CVA Aphasia G tube malfunction BPH DM Bedbound OA Dementia NH resident DNR Plan: Meropenem #4 and vanc #9. 09/11 DC cefepime #5 f/u repeat bcx aspiration precaution, elevate HOB G tube care skin care requested repeat surgical and wound care nurse evaluation of wounds once pneumonia improves, will obtain indium scan to evaluate previous cervical spine fusion surgery site and the R shoulder in the setting of persistent GPC bacteremia. if we obtain indium scan now, likely the lungs will light up Thank you for this consult. [facility] will continue to follow the patient with you. Subjective Allergies: Coded Allergies: HYDROMORPHONE (Unverified Allergy, Unknown, 01/04/18) Subjective Persistently febrile. Tachycardic. Pt is calm and answers simple questions but unclear if reliable. denies SOB. Objective Vital Signs Last 24 Hour Vital Signs Date Time Temp Pulse Resp B/P (MAP) Pulse Ox O2 Delivery O2 Flow Rate FiO2 09/14/19 12:00 102.2 125 22 147/84 (105) 95 09/14/19 12:00 45 09/14/19 11:54 101.5 09/14/19 11:36 95 Venturi Mask 12.0 55 09/14/19 11:35 110 20 95 Venturi Mask 12.0 55 09/14/19 09:04 125 139/82 09/14/19 09:00 Venturi Mask 09/14/19 08:00 99.7 125 22 139/82 (101) 84 09/14/19 08:00 45 09/14/19 03:54 45 09/14/19 03:38 97.2 107 20 135/78 (97) 94 09/14/19 01:20 98.2 113 16 121/65 (83) 100 09/14/19 00:00 99.5 103 20 115/70 (85) 96 09/14/19 00:00 105 09/13/19 22:10 100.4 09/13/19 21:11 114 20 98 Venturi Mask 10.0 45 09/13/19 21:11 99 Venturi Mask 10.0 45 09/13/19 21:00 Venturi Mask 09/13/19 20:00 101.2 120 23 127/72 (90) 95 09/13/19 20:00 108 09/13/19 20:00 45 09/13/19 16:00 109 09/13/19 16:00 97.9 111 15 119/52 (74) 100 09/13/19 16:00 45 Height (Feet): 5 Height (Inches): 11.00 Weight (Pounds): 167 Objective Gen: NAD. cachectic. HEENT: anicteric sclera CV: RRR. no rubs or gallop Resp: RRR. rhonchi Abd: soft. no TTP Ext: no LE edema Skin: warm MSK: R shoulder previous pocket with slight discharge Laboratory Tests Test 09/14/19 08:45 White Blood Count 7.3 K/UL (4.8-10.8) Red Blood Count 3.68 M/UL (4.70-6.10) L Hemoglobin 11.7 G/DL (14.2-18.0) L Hematocrit 36.0 % (42.0-52.0) L Mean Corpuscular Volume 98 FL (80-99) Mean Corpuscular Hemoglobin 31.8 PG (27.0-31.0) H Mean Corpuscular Hemoglobin Concent 32.5 G/DL (32.0-36.0) Red Cell Distribution Width 13.7 % (11.6-14.8) Platelet Count 476 K/UL (150-450) H Mean Platelet Volume 6.7 FL (6.5-10.1) Neutrophils (%) (Auto) 77.7 % (45.0-75.0) H Lymphocytes (%) (Auto) 14.7 % (20.0-45.0) L Monocytes (%) (Auto) 5.0 % (1.0-10.0) Eosinophils (%) (Auto) 1.2 % (0.0-3.0) Basophils (%) (Auto) 1.3 % (0.0-2.0) Erythrocyte Sedimentation Rate 52 MM/HR (0-20) H Sodium Level 134 MMOL/L (136-145) L Potassium Level 4.2 MMOL/L (3.5-5.1) Chloride Level 99 MMOL/L (98-107) Carbon Dioxide Level 34 MMOL/L (21-32) H Anion Gap 1 mmol/L (5-15) L Blood Urea Nitrogen 15 mg/dL (7-18) Creatinine 0.7 MG/DL (0.55-1.30) Estimat Glomerular Filtration Rate mL/min (>60) Glucose Level 159 MG/DL (74-106) H Calcium Level 9.1 MG/DL (8.5-10.1) Phosphorus Level 2.0 MG/DL (2.5-4.9) L Magnesium Level 1.7 MG/DL (1.8-2.4) L Total Bilirubin 0.4 MG/DL (0.2-1.0) Aspartate Amino Transf (AST/SGOT) 42 U/L (15-37) H Alanine Aminotransferase (ALT/SGPT) 32 U/L (12-78) Alkaline Phosphatase 89 U/L (46-116) C-Reactive Protein, Quantitative 8.6 mg/dL (0.00-0.90) H Total Protein 9.4 G/DL (6.4-8.2) H Albumin 2.2 G/DL (3.4-5.0) L Globulin 7.2 g/dL Albumin/Globulin Ratio 0.3 (1.0-2.7) L Current Medications Medications (Trade) Dose Ordered Sig/Nelson Route PRN Reason Start Time Stop Time Status Last Admin Dose Admin Acetaminophen (Tylenol) 650 mg Q4H PRN GT Mild Pain/Temp > 100.5 09/14/19 02:45 10/06/19 18:44 09/14/19 11:24 Amlodipine Besylate (Norvasc) 5 mg DAILY GT 09/14/19 09:00 10/07/19 08:59 09/14/19 09:04 Barium Sulfate (Varibar [place]) 250 ml NOW PRN MC RAD 09/14/19 12:45 09/16/19 12:37 Barium Sulfate (Varibar [place]) 240 ml NOW PRN RAD 09/14/19 12:45 09/16/19 12:37 Barium Sulfate (Varibar Pudding) 230 ml NOW PRN RAD 09/14/19 12:45 09/16/19 12:37 Dextrose (Dextrose 50%) 25 ml Q30M PRN IV Hypoglycemia 09/14/19 02:30 10/06/19 17:59 Dextrose (Dextrose 50%) 50 ml Q30M PRN IV Hypoglycemia 09/14/19 02:30 10/06/19 17:59 Gabapentin (Neurontin) 250 mg TID GT 09/14/19 09:00 10/06/19 19:59 09/14/19 13:03 Insulin Aspart (NovoLOG) Q6HR SUBQ 09/14/19 06:00 10/07/19 00:00 09/14/19 13:01 Magnesium Sulfate 100 ml @ 100 mls/hr Q1H IVPB 09/14/19 13:45 09/14/19 15:44 Meropenem 1 gm/ Sodium Chloride 55 ml @ 110 mls/hr Q8HR IVPB 09/14/19 06:00 09/16/19 10:59 09/14/19 05:13 Nitroglycerin (Ntg) 0.4 mg Q5M PRN SL Prn Chest Pain 09/14/19 02:15 10/06/19 15:59 Ondansetron HCl (Zofran) 4 mg Q6H PRN IVP Nausea & Vomiting 09/14/19 04:00 10/06/19 15:59 Polyethylene Glycol (Miralax) 17 gm DAILYPRN PRN GT Constipation 09/14/19 18:15 10/06/19 15:59 Sodium Chloride 1,000 ml @ 75 mls/hr [id number] IV 09/14/19 02:15 10/13/19 11:14 Sodium Phosphate 30 mm/Sodium Chloride 285 ml @ 47.5 mls/hr ONCE IV 09/14/19 15:00 09/14/19 21:00 Vancomycin HCl (Vanco rx to dose) 1 ea DAILY PRN MISC Per rx protocol 09/14/19 09:00 10/06/19 15:59 Vancomycin/Sodium Chloride 275 ml @ 183.333 mls/hr Q48H IVPB 09/15/19 12:00 09/16/19 11:59 Garret Black MD Sep 14, 2019 13:36
--- NOTE | 2019-09-14 14:21 | NUR ---
RD ASSESSMENT & RECOMMENDATIONS SEE CARE ACTIVITY FOR COMPLETE ASSESSMENT DAILY ESTIMATED NEEDS: Needs based on cardiac, wound healing, DM/ 70kg 25-30 kcals/kg 0408-9991 total kcals 1.25-1.5 g protein/kg 87-105 g total protein 25-30 mL/kg 2529-1713 total fluid mLs NUTRITION DIAGNOSIS: * Swallowing difficulty R/T dysphagia as evidenced by pt PEG dependent. * Increased Kcal and pro needs r/t wound healing as evidenced by pt admitted w/ full thickness wounds at R scapula and L elbow, non-blanching erythema at rt heel. * Altered nutrition related lab values R/T h/o DM as evidenced by elev POC glu (106-201), on NISS. CURRENT TF:Osmolite 1.5 @ 50ml/hr x20 hrs -> changed to Glucerna 1.5 @ 50ml/hr x 24 hrs ENTERAL NUTRITION RECOMMENDATIONS: Glucerna 1.5 @ 50ml/hr x 24 hrs to provide 1200ml, 1800kcal, 99g prot, 911ml free water * Initiate Glucerna 1.5 @ 30ml/hr x 6hrs, advance 10ml q 4-6 hrs as tolerated to goal rate. * HOB over 30 degrees * Water flush of 240ml q 6hrs ADDITIONAL RECOMMENDATIONS: * Calibrated bedscale wt for accurate CBW EMR wt= 175# vs bedscale wt 09/0795=266.78# * Check A1C for eval of glycemic control: h/o DM * Monitor lytes, replete as needed (low phos and mag) * Wound healing: add Vit C 250mg QD + ZnSO4 220mg QD x 10 days : add Phillip 1pkt BID .
[2019-09-14] MEDS ORDERED: Sodium Phosphate 30 MM in NS 275 ML IV SCH (15:00)
--- NOTE | 2019-09-14 17:00 | NUR ---
NURSE NOTES: IV INFUSION MEDICATIONS HUNG LATE PATIENT DID NOT HAVE IV ACCESS, WAITED FOR ICU NURSE TO ARRIVE TO THE FLOOR TO GAIN IV ACCESS FOR THE PATIENT.
[2019-09-14] MEDS ORDERED: Miralax 17gm pkt GT PRN (18:15)
--- NOTE | 2019-09-14 19:27 | NUR ---
HAND-OFF: Report given to SERGIO BUCK.
--- NOTE | 2019-09-14 20:00 | NUR ---
NURSE NOTES: RECEIVED PT FROM SERGIO WELDON. PT IS AWAKE, AAOX0, ON VENTURI MASK AT 45%. PT IS BEDBOUND, ON P200 MATTRESS. G-TUBE FEEDING IS PATENT, NO RESIDUALS, RUNNING GLUCERNA 1.5 AT 50ML/HR. PT IS TOLERATING FEEDING WELL. PEREZ CATH IS INTACT AND PATENT. PEREZ ANCHOR IN PLACE. IV ON RIGHT FA 24G IS INTACT AND PATENT. WOUND DRESSINGS INTACT AND DRY. BED IS LOCKED AND LOW, BED ALARMS ACTIVE, SIDE RAILS UP X2, AND CALL LIGHT IS WITHIN REACH. WILL CONTINUE TO MONITOR.
[2019-09-15] VITALS: BP 125/70
[2019-09-15 04:00] VITALS: BP 114/75
[2019-09-15] MEDS: Meropenem 1 GM in NS 55 ML IVPB SCH ×3 (05:58→22:31)
[2019-09-15 06:27] LABS: BASOPHILS % (AUTO) 0.6 % (0.0-2.0); EOSINOPHILS % (AUTO) 3.2 % (0.0-3.0); HEMATOCRIT 30.4 % (42.0-52.0); LYMPHOCYTES % (AUTO) 20.9 % (20.0-45.0); MEAN CORPUSCULAR VOLUME 98 FL (80-99); MONOCYTES % (AUTO) 5.6 % (1.0-10.0); NEUTROPHILS % (AUTO) 69.6 % (45.0-75.0); PLATELET COUNT 442 K/UL (150-450); RED CELL DISTRIBUTION WIDTH 13.9 % (11.6-14.8); WHITE BLOOD COUNT 6.2 K/UL (4.8-10.8)
[2019-09-15] MEDS: NovoLOG Insulin Flexpen SUBQ SCH ×5 (06:32→23:28)
[2019-09-15 07:42] LABS: ALANINE AMINOTRANSFERASE 32 U/L (12-78); ALBUMIN 1.9 G/DL (3.4-5.0); ALBUMIN/GLOBULIN RATIO 0.3 (1.0-2.7); ALKALINE PHOSPHATASE 82 U/L (46-116); ANION GAP 0 mmol/L (5-15); ASPARTATE AMINO TRANSFERASE 40 U/L (15-37); BILIRUBIN,TOTAL 0.4 MG/DL (0.2-1.0); BLOOD UREA NITROGEN 14 mg/dL (7-18); CALCIUM 8.6 MG/DL (8.5-10.1); CARBON DIOXIDE 34 MMOL/L (21-32); CHLORIDE 102 MMOL/L (98-107); CREATININE 0.6 MG/DL (0.55-1.30); POTASSIUM 4.2 MMOL/L (3.5-5.1); SODIUM 136 MMOL/L (136-145)
[2019-09-15 08:00] VITALS: BP 160/94
--- NOTE | 2019-09-15 08:01 | NUR ---
NURSE NOTES: Patient awake, non-verbal; Veturi Mask in place at 45%; IV Left-Hand 24G NS 75cc running; Benavidez in place drains urine well; patient contracted at the upper and lower extremities; Tube feeding Glucerna 1.5 running 50cc, no residual; head of the bed elevated, side rails up x2, breaks engaged; will keep monitoring.
--- NOTE | 2019-09-15 08:10 | NUR ---
HAND-OFF: Report given to SERGIO ANDERSON.
[2019-09-15] MEDS: Gabapentin 300 MG/6 ML Soln GT SCH ×3 (08:43→17:35)
--- NOTE | 2019-09-15 09:35 | NUR ---
RADIOLOGY DEPT., CHEST X-RAY DONE.-P.DYE
--- NOTE | 2019-09-15 09:40 | Diagnostic Imaging Report ---
Indication: Shortness of breath Technique: One view of the chest Comparison: 09/11/2019 Findings: Patient's hand obscures the left upper chest; per technologist, patient is contracted. There is some atelectasis and possibly some focal patchy consolidation in the left mid to lower lung. This appears new or slightly increased. There is some atelectasis and possible patchy consolidation in the right suprahilar region and right midlung periphery, also evident previously. Normal heart size. Impression: Increased left mid and lower lung patchy atelectasis and/or consolidation Other stable findings as described
--- NOTE | 2019-09-15 11:00 | NUR ---
NURSE NOTES: Feeding formula changed;
[2019-09-15 12:00] VITALS: BP 143/75
[2019-09-15] MEDS ORDERED: Vancomycin 1.25gm/NS Premix 275 ML IVPB SCH (12:00)
--- NOTE | 2019-09-15 12:32 | Pulmonology Progress Note ---
Assessment/Plan Problems: (1) Healthcare-associated pneumonia (2) At high risk for aspiration (3) History of CVA (cerebrovascular accident) (4) Advanced dementia (5) G tube feedings (6) HTN (hypertension) Assessment/Plan CXR is worse had temp of 102 yesterday still on face mask CT of shoulder didn't show any abscess, but showed extensive lung infiltrate adjust abx, on meropenem and vancomycin respiratory treatment titrate fio2 to sat of 92% aspiration precaution dvt prophylaxis blood cultures are persistently positive, with different strains of coag negative staff Subjective ROS Limited/Unobtainable: No Interval Events: cxr is worse Allergies: Coded Allergies: HYDROMORPHONE (Unverified Allergy, Unknown, 01/04/18) Objective Last 24 Hour Vital Signs Date Time Temp Pulse Resp B/P (MAP) Pulse Ox O2 Delivery O2 Flow Rate FiO2 09/15/19 09:00 Venturi Mask 09/15/19 08:42 108 160/94 09/15/19 08:27 99 Venturi Mask 14.0 55 09/15/19 08:00 45 09/15/19 08:00 97.5 108 20 160/94 (116) 100 09/15/19 04:00 98.7 104 20 114/75 (88) 96 09/15/19 04:00 45 09/15/19 00:00 98.1 104 20 125/70 (88) 98 09/14/19 21:00 Venturi Mask 09/14/19 20:30 99 Venturi Mask 12.0 55 09/14/19 20:00 45 09/14/19 20:00 97.9 94 20 119/63 (81) 96 09/14/19 16:00 45 09/14/19 16:00 98.2 111 22 134/75 (94) 96 Intake and Output 09/14/19 09/15/19 19:00 07:00 Intake Total 300 ml 185 ml Output Total 1300 ml 1100 ml Balance -1000 ml -915 ml Intake Free Water 250 ml IV Total 185 ml Tube Feeding 50 ml Output Urine Total 1300 ml 1100 ml # Voids 2 # Bowel Movements 1 1 General Appearance: WD/WN HEENT: normocephalic, atraumatic Respiratory/Chest: chest wall non-tender, lungs clear Cardiovascular: normal peripheral pulses, normal rate Abdomen: normal bowel sounds, soft, non tender Genitourinary: normal external genitalia Microbiology Date/Time Source Procedure Growth Status 09/13/19 09:35 Blood Blood Culture - Preliminary NO GROWTH AFTER 24 HOURS Resulted 09/13/19 09:25 Blood Blood Culture - Preliminary NO GROWTH AFTER 24 HOURS Resulted Laboratory Tests 09/15/19 05:13: White Blood Count 6.2, Red Blood Count 3.10L, Hemoglobin 10.0L, Hematocrit 30.4L , Mean Corpuscular Volume 98, Mean Corpuscular Hemoglobin 32.3H, Mean Corpuscular Hemoglobin Concent 32.9, Red Cell Distribution Width 13.9, Platelet Count 442, Mean Platelet Volume 6.8, Neutrophils (%) (Auto) 69.6, Lymphocytes (% ) (Auto) 20.9, Monocytes (%) (Auto) 5.6, Eosinophils (%) (Auto) 3.2H, Basophils (%) (Auto) 0.6, Sodium Level 136, Potassium Level 4.2, Chloride Level 102, Carbon Dioxide Level 34H, Anion Gap 0L, Blood Urea Nitrogen 14, Creatinine 0.6, Estimat Glomerular Filtration Rate , Glucose Level 112H, Calcium Level 8.6, Total Bilirubin 0.4, Aspartate Amino Transf (AST/SGOT) 40H, Alanine Aminotransferase (ALT/SGPT) 32, Alkaline Phosphatase 82, Pro-B-Type Natriuretic Peptide 832H, Total Protein 8.6H, Albumin 1.9L, Globulin 6.7, Albumin/Globulin Ratio 0.3L 09/15/19 11:10: Vancomycin Level Trough 9.1 Current Medications Medications (Trade) Dose Ordered Sig/Nelson Route PRN Reason Start Time Stop Time Status Last Admin Dose Admin Acetaminophen (Tylenol) 650 mg Q4H PRN GT Mild Pain/Temp > 100.5 09/14/19 02:45 10/06/19 18:44 09/14/19 17:14 Amlodipine Besylate (Norvasc) 5 mg DAILY GT 09/14/19 09:00 10/07/19 08:59 09/15/19 08:42 Barium Sulfate (Varibar [place]) 250 ml NOW PRN RAD 09/14/19 12:45 09/16/19 12:37 Barium Sulfate (Varibar [place]) 240 ml NOW PRN RAD 09/14/19 12:45 09/16/19 12:37 Barium Sulfate (Varibar [place]ud[place]) 230 ml NOW PRN MC RAD 09/14/19 12:45 09/16/19 12:37 Dextrose (Dextrose 50%) 25 ml Q30M PRN IV Hypoglycemia 09/14/19 02:30 10/06/19 17:59 Dextrose (Dextrose 50%) 50 ml Q30M PRN IV Hypoglycemia 09/14/19 02:30 10/06/19 17:59 Gabapentin (Neurontin) 250 mg TID GT 09/14/19 09:00 10/06/19 19:59 09/15/19 12:11 Insulin Aspart (NovoLOG) Q6HR SUBQ 09/14/19 06:00 10/07/19 00:00 09/15/19 12:13 Meropenem 1 gm/ Sodium Chloride 55 ml @ 110 mls/hr Q8HR IVPB 09/14/19 06:00 09/16/19 10:59 09/15/19 05:58 Nitroglycerin (Ntg) 0.4 mg Q5M PRN SL Prn Chest Pain 09/14/19 02:15 10/06/19 15:59 Ondansetron HCl (Zofran) 4 mg Q6H PRN IVP Nausea & Vomiting 09/14/19 04:00 10/06/19 15:59 Polyethylene Glycol (Miralax) 17 gm DAILYPRN PRN GT Constipation 09/14/19 18:15 10/06/19 15:59 Sodium Chloride 1,000 ml @ 75 mls/hr [id number] IV 09/14/19 02:15 10/13/19 11:14 09/15/19 05:07 Vancomycin HCl (Vanco rx to dose) 1 ea DAILY PRN MISC Per rx protocol 09/14/19 09:00 10/06/19 15:59 Vancomycin HCl 1 gm/Dextrose 275 ml @ 183.708 mls/hr Q24H IVPB 09/15/19 14:00 09/20/19 13:59 Sowmya Abbasi MD Sep 15, 2019 12:32
--- NOTE | 2019-09-15 12:44 | NUR ---
CASE MANAGEMENT:REVIEW 09/14/19 SI: PNA 97.5 108 20 160/94 99% ON VENTURI MASK 14L 45% RBC 3.10 H/H 10.0/30.4 IS: IVF NS @75ML/HR IV MEROPENEM Q8HRS NORVASC GT QD NOVOLOG SQ Q6HR GABAPENTIN GT TID : TELEMETRY STATUS DCP: [facility]
--- NOTE | 2019-09-15 12:55 | NUR ---
RESPIRATORY NOTE: Per RN Sarah, Dr. Abbasi wants to titrate pt's FiO2 and wean from venturi mask to nasal canula. Pt was on 14L 55%FiO2 venturi mask, saturated at 100%. Per Rn's request, titrated pt to 40%FiO2 10L venturi mask, pt still saturated at 100%. No SOB or resp distress noted. Pt is resting in bed comfortably. RN Sarah aware. Will continue to monitor and attempt to titrate pt more later as tolerated.
--- NOTE | 2019-09-15 13:31 | Infectious Diseases Prog Note ---
Assessment/Plan Assessment/Plan 79yo gentleman with PMH below presents from retirement for hypoxia and report of cough. Pt was recently admitted at this hospital 08/15-08/22 for sepsis 2/2 R shoulder abscess. Pt was discharged on zosyn and vancomycin. Pt unable to provide history. Per retirement records, they were concerned for pneumonia. Pt was started on levaquin/flagyl early August. Fever Leukopenia, SP No lactic acidosis Pseudomonas PNA Acute hypoxic respiratory failure on nasal cannula supplement CXR: Pneumonia versus atelectasis at the left lung base. sputum cx: Pseudomonas 09/11 CXR: New right suprahilar and increasing left basilar infiltrates, since prior study of 5 days earlier Unlikely UTI UA negative Persistent CoNS bacteremia, albeit diff species. 2/2 pressure ulcers? shoulder abscess? cervical spine prosthetic infection? R shoulder osteomyelitis? 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 Thickened mitral valve leaflets with normal excursion. Mitral annulus and aortic root calcification. Pulmonic valve not visualized. Normal tricuspid valve structure. 09/13 UE/LE duplex: negative for DVT 09/13 bcx: ngtd 09/14 BCx: P h/o Staph capitis(CoNS) bacteremia 08/15 08/16 BCx: NG h/o R shoulder abscess 08/20 cx: Proteus, CoNS 09/13 CT shoulder: Since 08/22/2019, previously demonstrated right posterior shoulder superficial wound is largely closed. There is some residual gas and what appears to be scar tissue in the area. No definite abscess currently, although evaluation for such is limited in the absence of IV contrast. Multifocal bilateral pulmonary parenchymal infiltrates, presumably pneumonia, are noted. Extensive heterotopic new bone surrounding the right shoulder is again demonstrated. Correlate with clinical history. Evidence of prior cervical spine fusion surgery. MRSA screen negative HTN FTT Anemia CVA Aphasia G tube malfunction BPH DM Bedbound OA Dementia NH resident DNR Plan: Meropenem #5 and vanc #10 09/11 DC cefepime #5 f/u repeat bcx aspiration precaution, elevate HOB G tube care skin care at this point, concerning for infection of L knee prosthetic and/or neck prosthesis. once pneumonia improves, will obtain indium scan to evaluate previous cervical spine fusion surgery site and the R shoulder in the setting of persistent GPC bacteremia. if we obtain indium scan now, likely the lungs will light up. Thank you for this consult. [facility] will continue to follow the patient with you. Subjective Allergies: Coded Allergies: HYDROMORPHONE (Unverified Allergy, Unknown, 01/04/18) Subjective Persistently febrile. Daughter at bedside. Pt is calm. Objective Vital Signs Last 24 Hour Vital Signs Date Time Temp Pulse Resp B/P (MAP) Pulse Ox O2 Delivery O2 Flow Rate FiO2 09/15/19 12:00 45 09/15/19 12:00 98.0 116 19 143/75 (97) 96 09/15/19 09:00 Venturi Mask 09/15/19 08:42 108 160/94 09/15/19 08:27 99 Venturi Mask 14.0 55 09/15/19 08:00 45 09/15/19 08:00 97.5 108 20 160/94 (116) 100 09/15/19 04:00 98.7 104 20 114/75 (88) 96 09/15/19 04:00 45 09/15/19 00:00 98.1 104 20 125/70 (88) 98 09/14/19 21:00 Venturi Mask 09/14/19 20:30 99 Venturi Mask 12.0 55 09/14/19 20:00 45 09/14/19 20:00 97.9 94 20 119/63 (81) 96 09/14/19 16:00 45 09/14/19 16:00 98.2 111 22 134/75 (94) 96 Height (Feet): 5 Height (Inches): 11.00 Weight (Pounds): 167 Objective Gen: NAD. cachectic. HEENT: anicteric sclera CV: RRR. no rubs or gallop Resp: RRR. rhonchi Abd: soft. no TTP Ext: no LE edema Skin: warm MSK: R shoulder previous pocket with slight discharge Microbiology Date/Time Source Procedure Growth Status 09/13/19 09:35 Blood Blood Culture - Preliminary NO GROWTH AFTER 24 HOURS Resulted 09/13/19 09:25 Blood Blood Culture - Preliminary NO GROWTH AFTER 24 HOURS Resulted Laboratory Tests Test 09/15/19 05:13 09/15/19 11:10 White Blood Count 6.2 K/UL (4.8-10.8) Red Blood Count 3.10 M/UL (4.70-6.10) L Hemoglobin 10.0 G/DL (14.2-18.0) L Hematocrit 30.4 % (42.0-52.0) L Mean Corpuscular Volume 98 FL (80-99) Mean Corpuscular Hemoglobin 32.3 PG (27.0-31.0) H Mean Corpuscular Hemoglobin Concent 32.9 G/DL (32.0-36.0) Red Cell Distribution Width 13.9 % (11.6-14.8) Platelet Count 442 K/UL (150-450) Mean Platelet Volume 6.8 FL (6.5-10.1) Neutrophils (%) (Auto) 69.6 % (45.0-75.0) Lymphocytes (%) (Auto) 20.9 % (20.0-45.0) Monocytes (%) (Auto) 5.6 % (1.0-10.0) Eosinophils (%) (Auto) 3.2 % (0.0-3.0) H Basophils (%) (Auto) 0.6 % (0.0-2.0) Sodium Level 136 MMOL/L (136-145) Potassium Level 4.2 MMOL/L (3.5-5.1) Chloride Level 102 MMOL/L (98-107) Carbon Dioxide Level 34 MMOL/L (21-32) H Anion Gap 0 mmol/L (5-15) L Blood Urea Nitrogen 14 mg/dL (7-18) Creatinine 0.6 MG/DL (0.55-1.30) Estimat Glomerular Filtration Rate mL/min (>60) Glucose Level 112 MG/DL (74-106) H Calcium Level 8.6 MG/DL (8.5-10.1) Total Bilirubin 0.4 MG/DL (0.2-1.0) Aspartate Amino Transf (AST/SGOT) 40 U/L (15-37) H Alanine Aminotransferase (ALT/SGPT) 32 U/L (12-78) Alkaline Phosphatase 82 U/L (46-116) Pro-B-Type Natriuretic Peptide 832 pg/mL (0-125) H Total Protein 8.6 G/DL (6.4-8.2) H Albumin 1.9 G/DL (3.4-5.0) L Globulin 6.7 g/dL Albumin/Globulin Ratio 0.3 (1.0-2.7) L Vancomycin Level Trough 9.1 ug/mL (5.0-12.0) Current Medications Medications (Trade) Dose Ordered Sig/Nelson Route PRN Reason Start Time Stop Time Status Last Admin Dose Admin Acetaminophen (Tylenol) 650 mg Q4H PRN GT Mild Pain/Temp > 100.5 09/14/19 02:45 10/06/19 18:44 09/14/19 17:14 Amlodipine Besylate (Norvasc) 5 mg DAILY GT 09/14/19 09:00 10/07/19 08:59 09/15/19 08:42 Barium Sulfate (Varibar Honey) 250 ml NOW PRN MC RAD 09/14/19 12:45 09/16/19 12:37 Barium Sulfate (Varibar Leeper) 240 ml NOW PRN MC RAD 09/14/19 12:45 09/16/19 12:37 Barium Sulfate (Varibar Pudding) 230 ml NOW PRN MC RAD 09/14/19 12:45 09/16/19 12:37 Dextrose (Dextrose 50%) 25 ml Q30M PRN IV Hypoglycemia 09/14/19 02:30 10/06/19 17:59 Dextrose (Dextrose 50%) 50 ml Q30M PRN IV Hypoglycemia 09/14/19 02:30 10/06/19 17:59 Gabapentin (Neurontin) 250 mg TID GT 09/14/19 09:00 10/06/19 19:59 09/15/19 12:11 Insulin Aspart (NovoLOG) Q6HR SUBQ 09/14/19 06:00 10/07/19 00:00 09/15/19 12:13 Meropenem 1 gm/ Sodium Chloride 55 ml @ 110 mls/hr Q8HR IVPB 09/14/19 06:00 09/16/19 10:59 09/15/19 13:09 Nitroglycerin (Ntg) 0.4 mg Q5M PRN SL Prn Chest Pain 09/14/19 02:15 12/13/19 15:59 Ondansetron HCl (Zofran) 4 mg Q6H PRN IVP Nausea & Vomiting 09/14/19 04:00 10/06/19 15:59 Polyethylene Glycol (Miralax) 17 gm DAILYPRN PRN GT Constipation 09/14/19 18:15 10/06/19 15:59 Sodium Chloride 1,000 ml @ 75 mls/hr [id number] IV 09/14/19 02:15 10/13/19 11:14 09/15/19 05:07 Vancomycin HCl (Vanco rx to dose) 1 ea DAILY PRN MISC Per rx protocol 09/14/19 09:00 10/06/19 15:59 Vancomycin HCl 1 gm/Dextrose 275 ml @ 183.708 mls/hr Q24H IVPB 09/15/19 14:00 09/20/19 13:59 Garret Black MD Sep 15, 2019 13:31
--- NOTE | 2019-09-15 13:54 | Cardiology Report ---
APPROVED REPORT EKG Measurement Heart [id number] Sinus tachycardia Possible Anterior infarct, age undetermined Abnormal ECG
[2019-09-15] MEDS: Vancomycin 1gm in D5W 275ml IVPB SCH (14:00)
--- NOTE | 2019-09-15 14:20 | NUR ---
ST NOTES: SWALLOW STATUS: PT NOT ALERT AND RN NOT AVAILABLE. REVIEWED MOD BARIUM SWALLOW STUDY (MBSS) IMAGES AND COMPLETED REPORT, SEE FULL REPORT. STAFF AWARE OF ORAL CARE NEEDS AND ASPIRATION PRECAUTIONS. PLAN: CONTINUE WITH PLAN OF CARE ON MBSS REPORT WHEN PT IS ALERT OR AT SNF
[2019-09-15 16:00] VITALS: BP 138/76
--- NOTE | 2019-09-15 19:24 | NUR ---
HAND-OFF: Report given to SERGIO Santoyo.
--- NOTE | 2019-09-15 19:43 | NUR ---
NURSE NOTES: RECEIVED PT FROM SERGIO ANDERSON. PT IS AWAKE, AAOX0, NON-VERBAL. PT IS ON A VENTURI MASK WEANING DOWN AT 40%. IV ON RIGHT FA 24G IS INTACT AND PATENT. PEREZ IS INTACT AND DRAINING WELL, PEREZ ANCHOR IN PLACE. G-TUBE FEEDING IS INTACT, NO RESIDUALS, RUNNING GLUCERNA 1.5. PT IS TOLERATING FEEDING WELL. WOUND DRESSINGS INTACT. BED IS LOCKED AND LOW, BED ALARMS ACTIVE, SIDE RAILS UP X2 AND CALL LIGHT IS WITHIN REACH. WILL CONTINUE TO MONITOR.
[2019-09-15 20:00] VITALS: BP 144/89
--- NOTE | 2019-09-15 23:00 | NUR ---
NURSE NOTES: PT DESATURATED WHEN TRYING TO WEAN OFF VENTURI MASK TO 40%. INCREASED O2 BACK TO 45%.
[2019-09-15] MEDS: Acetaminophen 650mg/20.3ml GT PRN (23:27)
[2019-09-16] VITALS: BP 139/77
[2019-09-16 04:00] VITALS: BP 133/64
--- NOTE | 2019-09-16 04:59 | NUR ---
NURSE NOTES: PERFORMED WOUND CARE AND DRESSING CHANGE. WOUND PICTURES TAKEN.
[2019-09-16] MEDS: Meropenem 1 GM in NS 55 ML IVPB SCH ×3 (05:53→21:15)
[2019-09-16] MEDS: NovoLOG Insulin Flexpen SUBQ SCH ×3 (07:09→17:23)
--- NOTE | 2019-09-16 07:34 | NUR ---
NURSE NOTES: Patient awake, non-verbal; on Venturi Mask, no sing of distress and shortness of breath; no sing of chest pain; IV Left-Hand 24G NS @75cc running; Benavidez in place, drains yellow urine; upper and lower extremities contracted; wound dressings dry and intact on heels and sacral; Tube feeding Glucerna 1.5 running at 50cc, no residual, head of the bed elevated, side rails up x2, breaks, bed at lowest position, bed alarm on; will keep monitoring.
--- NOTE | 2019-09-16 07:45 | NUR ---
HAND-OFF: Report given to SERGIO ANDERSON.
[2019-09-16 08:00] VITALS: BP 150/71
[2019-09-16] MEDS: Gabapentin 300 MG/6 ML Soln GT SCH ×3 (08:20→17:22)
[2019-09-16 12:00] VITALS: BP 123/68
[2019-09-16] MEDS: Vancomycin 1gm in D5W 275ml IVPB SCH (13:02)
--- NOTE | 2019-09-16 13:38 | Pulmonology Progress Note ---
Assessment/Plan Problems: (1) Healthcare-associated pneumonia (2) At high risk for aspiration (3) History of CVA (cerebrovascular accident) (4) Advanced dementia (5) G tube feedings (6) HTN (hypertension) Assessment/Plan CXR is worse had temp of 100.5yesterday still on face mask CT of shoulder didn't show any abscess, but showed extensive lung infiltrate adjust abx, on meropenem and vancomycin respiratory treatment titrate fio2 to sat of 92% aspiration precaution dvt prophylaxis blood cultures are persistently positive, with different strains of coag negative staff Subjective ROS Limited/Unobtainable: No Constitutional: Reports: no symptoms HEENT: Repors: no symptoms Respiratory: Reports: no symptoms Allergies: Coded Allergies: HYDROMORPHONE (Unverified Allergy, Unknown, 01/04/18) Objective Last 24 Hour Vital Signs Date Time Temp Pulse Resp B/P (MAP) Pulse Ox O2 Delivery O2 Flow Rate FiO2 09/16/19 12:00 99.0 104 20 123/68 (86) 99 09/16/19 12:00 45 09/16/19 09:00 Venturi Mask 09/16/19 08:20 108 150/71 09/16/19 08:00 99.0 108 20 150/71 (97) 100 09/16/19 08:00 45 09/16/19 07:45 98 Venturi Mask 12.0 50 09/16/19 04:00 45 09/16/19 04:00 98.1 114 23 133/64 (87) 99 09/16/19 00:00 45 09/16/19 00:00 99.3 124 24 139/77 (97) 97 09/15/19 23:57 99.3 09/15/19 21:00 Venturi Mask 09/15/19 20:00 100.5 105 24 144/89 (107) 95 09/15/19 19:31 94 Venturi Mask 12.0 50 09/15/19 16:00 97.6 89 18 138/76 (96) 98 09/15/19 16:00 45 Intake and Output 09/15/19 09/16/19 19:00 07:00 Intake Total 2101.666 ml 1560 ml Output Total 1600 ml Balance 501.666 ml 1560 ml Intake Free Water 500 ml 250 ml IV Total 1001.666 ml 860 ml Tube Feeding 600 ml 450 ml Output Urine Total 1600 ml # Bowel Movements 2 1 Objective General Appearance: cachetic HEENT: normocephalic, atraumatic Respiratory/Chest: chest wall non-tender, normal breath sounds Cardiovascular: normal rate, regular rhythm Abdomen: normal bowel sounds, soft, non tender Genitourinary: normal external genitalia Extremities: no cyanosis Skin: no rash, no lesions Microbiology Date/Time Source Procedure Growth Status 09/14/19 16:05 Blood Blood Culture - Preliminary NO GROWTH AFTER 24 HOURS Resulted 09/14/19 16:00 Blood Blood Culture - Preliminary NO GROWTH AFTER 24 HOURS Resulted Current Medications Medications (Trade) Dose Ordered Sig/Nelson Route PRN Reason Start Time Stop Time Status Last Admin Dose Admin Acetaminophen (Tylenol) 650 mg Q4H PRN GT Mild Pain/Temp > 100.5 09/14/19 02:45 10/06/19 18:44 09/15/19 23:27 Amlodipine Besylate (Norvasc) 5 mg DAILY GT 09/14/19 09:00 10/07/19 08:59 09/16/19 08:20 Dextrose (Dextrose 50%) 25 ml Q30M PRN IV Hypoglycemia 09/14/19 02:30 10/06/19 17:59 Dextrose (Dextrose 50%) 50 ml Q30M PRN IV Hypoglycemia 09/14/19 02:30 10/06/19 17:59 Gabapentin (Neurontin) 250 mg TID GT 09/14/19 09:00 10/06/19 19:59 09/16/19 12:20 Insulin Aspart (NovoLOG) Q6HR SUBQ 09/14/19 06:00 10/07/19 00:00 09/16/19 12:21 Meropenem 1 gm/ Sodium Chloride 55 ml @ 110 mls/hr Q8HR IVPB 09/14/19 06:00 09/25/19 23:59 09/16/19 05:53 Nitroglycerin (Ntg) 0.4 mg Q5M PRN SL Prn Chest Pain 09/14/19 02:15 10/06/19 15:59 Ondansetron HCl (Zofran) 4 mg Q6H PRN IVP Nausea & Vomiting 09/14/19 04:00 10/06/19 15:59 Polyethylene Glycol (Miralax) 17 gm DAILYPRN PRN GT Constipation 09/14/19 18:15 10/06/19 15:59 Sodium Chloride 1,000 ml @ 75 mls/hr [id number] IV 09/14/19 02:15 10/13/19 11:14 09/16/19 08:21 Vancomycin HCl (Vanco rx to dose) 1 ea DAILY PRN MISC Per rx protocol 09/14/19 09:00 10/06/19 15:59 Vancomycin HCl 1 gm/Dextrose 275 ml @ 183.708 mls/hr Q24H IVPB 09/15/19 14:00 09/20/19 13:59 09/16/19 13:02 Sowmya Abbasi MD Sep 16, 2019 13:38
--- NOTE | 2019-09-16 14:13 | General Progress Note ---
Assessment/Plan Status: stable Assessment/Plan: Patient showing some intermittent progress in wound healing. From a wound management standpoint most important is prevention given his baseline degree of contractures, the fact that he is bedridden, and that he likely has protein malnutrition. Offloading the sacrococcyx area is the most important intervention and continue dressing changes per the protocol. Elbow ulcer is superficial and need to maintain padding over it given the degree of contracture. The I&D site to be covered by biotene pad alone for one week then can leave open. No other surgical intervention for the wounds required at this time. Thank you for allowing me to participate in this patient's care. Subjective Date patient seen: Sep 16, 2019 Time patient seen: 13:30 Allergies: Coded Allergies: HYDROMORPHONE (Unverified Allergy, Unknown, 01/04/18) Subjective Follow up evaluation on patient with sacral ulcer, left upper back I&D wound. Patient unable to give any history and updated history obtained from medical records. Objective Last 24 Hour Vital Signs Date Time Temp Pulse Resp B/P (MAP) Pulse Ox O2 Delivery O2 Flow Rate FiO2 09/16/19 12:00 99.0 104 20 123/68 (86) 99 09/16/19 12:00 45 09/16/19 09:00 Venturi Mask 09/16/19 08:20 108 150/71 09/16/19 08:00 99.0 108 20 150/71 (97) 100 09/16/19 08:00 45 09/16/19 07:45 98 Venturi Mask 12.0 50 09/16/19 04:00 45 09/16/19 04:00 98.1 114 23 133/64 (87) 99 09/16/19 00:00 45 09/16/19 00:00 99.3 124 24 139/77 (97) 97 09/15/19 23:57 99.3 09/15/19 21:00 Venturi Mask 09/15/19 20:00 100.5 105 24 144/89 (107) 95 09/15/19 19:31 94 Venturi Mask 12.0 50 09/15/19 16:00 97.6 89 18 138/76 (96) 98 09/15/19 16:00 45 Intake and Output 09/15/19 09/16/19 19:00 07:00 Intake Total 2101.666 ml 1560 ml Output Total 1600 ml Balance 501.666 ml 1560 ml Intake Free Water 500 ml 250 ml IV Total 1001.666 ml 860 ml Tube Feeding 600 ml 450 ml Output Urine Total 1600 ml # Bowel Movements 2 1 Height (Feet): 5 Height (Inches): 11.00 Weight (Pounds): 167 General Appearance: no apparent distress Respiratory/Chest: no respiratory distress Extremities: other - Flexion contractures at the hips, knees, and elbows Skin: other - Left upper back I&D site is healed with dry scab over top. Sacral ulcer stage 2 with clean granular base. Darnell Marcelino MD Sep 16, 2019 14:13
--- NOTE | 2019-09-16 15:00 | NUR ---
NURSE NOTES: Tube feeding formula changed, suction provided; patient tolerated well.
[2019-09-16 16:00] VITALS: BP 130/60
--- NOTE | 2019-09-16 19:20 | NUR ---
HAND-OFF: Report given to SERGIO Santoyo.
[2019-09-16 20:00] VITALS: BP 124/61
--- NOTE | 2019-09-16 20:11 | NUR ---
NURSE NOTES: RECEIVED PT FROM SERGIO ANDERSON. PT IS AWAKE, AAOX0, ON VENTURI MASK AT 45%, VSS. NO ACUTE RESPIRATORY DISTRESS NOTED. G-TUBE FEEDING IS PATENT, NO RESIDUALS, RUNNING GLUCERNA 1.5 AT 50ML/HR. PATIENT IS TOLERATING FEEDING WELL. WOUND DRESSINGS ARE DRY AND INTACT. IV ON RIGHT FA 24G IS INTACT AND PATENT. PEREZ IS INTACT AND DRAINING WELL. PEREZ ANCHOR IN PLACE. BED IS LOCKED AND LOW, BED ALARMS ACTIVE, SIDE RAILS UP X2 AND CALL LIGHT IS WITHIN REACH. WILL CONTINUE TO MONITOR.
[2019-09-17] VITALS: BP 140/69
[2019-09-17] MEDS: NovoLOG Insulin Flexpen SUBQ SCH ×4 (00:57→17:18)
[2019-09-17 04:00] VITALS: BP 118/76
[2019-09-17] MEDS: Meropenem 1 GM in NS 55 ML IVPB SCH ×3 (06:38→21:17)
--- NOTE | 2019-09-17 07:23 | NUR ---
HAND-OFF: Report given to SERGIO ANDERSON.
--- NOTE | 2019-09-17 07:32 | NUR ---
NURSE NOTES: Patient awake, non-verbal; on Venturi mask, no sing of distress and shortness of breath; no sing of chest pain; IV Left-Wrist 24G NS 75cc running; Tube Feeding Glucerna 1.5 running at 50cc, no residual; Benavidez in place, drains yellow urine; dressing on the wound dry and intact; upper and lower extremities contracted; side rails up x2, breaks engaged, bed at lowest position, bed alarm on; will keep monitoring.
[2019-09-17 08:00] VITALS: BP 130/80
[2019-09-17] MEDS: Gabapentin 300 MG/6 ML Soln GT SCH ×3 (08:34→17:16)
[2019-09-17 12:00] VITALS: BP 130/77
--- NOTE | 2019-09-17 14:10 | Infectious Diseases Prog Note ---
Assessment/Plan Assessment/Plan 79yo gentleman with PMH below presents from intermediate for hypoxia and report of cough. Pt was recently admitted at this hospital 08/15-08/22 for sepsis 2/2 R shoulder abscess. Pt was discharged on zosyn and vancomycin. Pt unable to provide history. Per intermediate records, they were concerned for pneumonia. Pt was started on levaquin/flagyl early August. Fever Leukopenia, SP No lactic acidosis Pseudomonas PNA Acute hypoxic respiratory failure on nasal cannula supplement CXR: Pneumonia versus atelectasis at the left lung base. sputum cx: Pseudomonas 09/11 CXR: New right suprahilar and increasing left basilar infiltrates, since prior study of 5 days earlier 09/15 CXR: Increased left mid and lower lung patchy atelectasis and/or consolidation Unlikely UTI UA negative Persistent CoNS bacteremia, albeit diff species. 2/2 pressure ulcers? shoulder abscess? cervical spine prosthetic infection? R shoulder osteomyelitis? 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 Thickened mitral valve leaflets with normal excursion. Mitral annulus and aortic root calcification. Pulmonic valve not visualized. Normal tricuspid valve structure. 09/13 UE/LE duplex: negative for DVT 09/13 bcx: ngtd 09/14 BCx: P h/o Staph capitis(CoNS) bacteremia 08/15 08/16 BCx: NG h/o R shoulder abscess 08/20 cx: Proteus, CoNS 09/13 CT shoulder: Since 08/22/2019, previously demonstrated right posterior shoulder superficial wound is largely closed. There is some residual gas and what appears to be scar tissue in the area. No definite abscess currently, although evaluation for such is limited in the absence of IV contrast. Multifocal bilateral pulmonary parenchymal infiltrates, presumably pneumonia, are noted. Extensive heterotopic new bone surrounding the right shoulder is again demonstrated. Correlate with clinical history. Evidence of prior cervical spine fusion surgery. MRSA screen negative HTN FTT Anemia CVA Aphasia G tube malfunction BPH DM Bedbound OA Dementia NH resident DNR Plan: Meropenem #/ and vanc #12 09/11 DC cefepime #5 f/u repeat bcx aspiration precaution, elevate HOB G tube care skin care CT chest and shoulder at this point, concerning for infection of L knee prosthetic and/or neck prosthesis. once pneumonia improves, will obtain indium scan to evaluate previous cervical spine fusion surgery site and the R shoulder in the setting of persistent GPC bacteremia. if we obtain indium scan now, likely the lungs will light up. Thank you for this consult. [facility] will continue to follow the patient with you. Subjective Allergies: Coded Allergies: HYDROMORPHONE (Unverified Allergy, Unknown, 01/04/18) Subjective Tmax 100.5 09/15 at 2000, now afebrile >24hrs. Objective Vital Signs Last 24 Hour Vital Signs Date Time Temp Pulse Resp B/P (MAP) Pulse Ox O2 Delivery O2 Flow Rate FiO2 09/17/19 12:00 98.8 111 20 130/77 (94) 98 09/17/19 12:00 45 09/17/19 09:00 Venturi Mask 09/17/19 08:34 109 130/80 09/17/19 08:00 98.0 109 14 130/80 (97) 98 09/17/19 08:00 45 09/17/19 04:00 98.4 117 24 118/76 (90) 98 09/17/19 04:00 45 09/17/19 00:00 45 09/17/19 00:00 98.9 106 23 140/69 (92) 99 09/16/19 21:00 Venturi Mask 09/16/19 20:06 98 Venturi Mask 12.0 50 09/16/19 20:00 99.4 101 23 124/61 (82) 99 09/16/19 16:00 98.1 104 20 130/60 (83) 100 09/16/19 16:00 45 Height (Feet): 5 Height (Inches): 11.00 Weight (Pounds): 167 Objective Gen: NAD. cachectic. HEENT: anicteric sclera CV: RRR. no rubs or gallop Resp: RRR. rhonchi Abd: soft. no TTP Ext: no LE edema Skin: warm MSK: R shoulder previous pocket with slight discharge Microbiology Date/Time Source Procedure Growth Status 09/14/19 16:05 Blood Blood Culture - Preliminary NO GROWTH AFTER 48 HOURS Resulted 09/14/19 16:00 Blood Blood Culture - Preliminary NO GROWTH AFTER 48 HOURS Resulted Laboratory Tests Test 09/17/19 13:05 Vancomycin Level Trough 11.4 ug/mL (5.0-12.0) Current Medications Medications (Trade) Dose Ordered Sig/Nelson Route PRN Reason Start Time Stop Time Status Last Admin Dose Admin Acetaminophen (Tylenol) 650 mg Q4H PRN GT Mild Pain/Temp > 100.5 09/14/19 02:45 10/06/19 18:44 09/15/19 23:27 Amlodipine Besylate (Norvasc) 5 mg DAILY GT 09/14/19 09:00 10/07/19 08:59 09/17/19 08:34 Dextrose (Dextrose 50%) 25 ml Q30M PRN IV Hypoglycemia 09/14/19 02:30 10/06/19 17:59 Dextrose (Dextrose 50%) 50 ml Q30M PRN IV Hypoglycemia 09/14/19 02:30 10/06/19 17:59 Gabapentin (Neurontin) 250 mg TID GT 09/14/19 09:00 10/06/19 19:59 09/17/19 12:31 Insulin Aspart (NovoLOG) Q6HR SUBQ 09/14/19 06:00 10/07/19 00:00 09/17/19 12:32 Meropenem 1 gm/ Sodium Chloride 55 ml @ 110 mls/hr Q8HR IVPB 09/14/19 06:00 09/25/19 23:59 09/17/19 13:03 Nitroglycerin (Ntg) 0.4 mg Q5M PRN SL Prn Chest Pain 09/14/19 02:15 10/06/19 15:59 Ondansetron HCl (Zofran) 4 mg Q6H PRN IVP Nausea & Vomiting 09/14/19 04:00 10/06/19 15:59 Polyethylene Glycol (Miralax) 17 gm DAILYPRN PRN GT Constipation 09/14/19 18:15 10/06/19 15:59 Sodium Chloride 1,000 ml @ 75 mls/hr [id number] IV 09/14/19 02:15 10/13/19 11:14 09/17/19 10:25 Vancomycin HCl (Vanco rx to dose) 1 ea DAILY PRN MISC Per rx protocol 09/14/19 09:00 10/06/19 15:59 Vancomycin HCl 500 mg/Dextrose 110 ml @ 110 mls/hr Q12H IVPB 09/17/19 15:00 09/22/19 14:59 Garret Black MD Sep 17, 2019 14:10
[2019-09-17] MEDS ORDERED: Omnipaque-300 100ml vial INJ PRN (14:15)
--- NOTE | 2019-09-17 15:38 | Pulmonology Progress Note ---
Assessment/Plan Problems: (1) Healthcare-associated pneumonia (2) At high risk for aspiration (3) History of CVA (cerebrovascular accident) (4) Advanced dementia (5) G tube feedings (6) HTN (hypertension) Assessment/Plan CXR is worse afebrile yesterday still on face mask CT of shoulder didn't show any abscess, but showed extensive lung infiltrate adjust abx, on meropenem and vancomycin respiratory treatment titrate fio2 to sat of 92% aspiration precaution dvt prophylaxis blood cultures are persistently positive, with different strains of coag negative staff Subjective ROS Limited/Unobtainable: No Constitutional: Reports: no symptoms HEENT: Repors: no symptoms Respiratory: Reports: no symptoms Allergies: Coded Allergies: HYDROMORPHONE (Unverified Allergy, Unknown, 01/04/18) Objective Last 24 Hour Vital Signs Date Time Temp Pulse Resp B/P (MAP) Pulse Ox O2 Delivery O2 Flow Rate FiO2 09/17/19 12:00 98.8 111 20 130/77 (94) 98 09/17/19 12:00 45 09/17/19 09:00 Venturi Mask 09/17/19 08:34 109 130/80 09/17/19 08:00 98.0 109 14 130/80 (97) 98 09/17/19 08:00 45 09/17/19 04:00 98.4 117 24 118/76 (90) 98 09/17/19 04:00 45 09/17/19 00:00 45 09/17/19 00:00 98.9 106 23 140/69 (92) 99 09/16/19 21:00 Venturi Mask 09/16/19 20:06 98 Venturi Mask 12.0 50 09/16/19 20:00 99.4 101 23 124/61 (82) 99 09/16/19 16:00 98.1 104 20 130/60 (83) 100 09/16/19 16:00 45 Intake and Output 09/16/19 09/17/19 19:00 07:00 Intake Total 1927.416 ml 5160 ml Output Total 1800 ml Balance 1927.416 ml 3360 ml Intake Free Water 250 ml 500 ml IV Total 1077.416 ml 4110 ml Tube Feeding 600 ml 550 ml Output Urine Total 1800 ml Stool Total 0 ml # Voids 2 # Bowel Movements 1 1 Objective General Appearance: cachetic HEENT: normocephalic, atraumatic Respiratory/Chest: chest wall non-tender, normal breath sounds Cardiovascular: normal rate, regular rhythm Abdomen: normal bowel sounds, soft, non tender Genitourinary: normal external genitalia Extremities: no cyanosis Skin: no rash, no lesions Microbiology Date/Time Source Procedure Growth Status 09/14/19 16:05 Blood Blood Culture - Preliminary NO GROWTH AFTER 48 HOURS Resulted 09/14/19 16:00 Blood Blood Culture - Preliminary NO GROWTH AFTER 48 HOURS Resulted Laboratory Tests 09/17/19 13:05: Vancomycin Level Trough 11.4 Current Medications Medications (Trade) Dose Ordered Sig/Nelson Route PRN Reason Start Time Stop Time Status Last Admin Dose Admin Acetaminophen (Tylenol) 650 mg Q4H PRN GT Mild Pain/Temp > 100.5 09/14/19 02:45 10/06/19 18:44 09/15/19 23:27 Amlodipine Besylate (Norvasc) 5 mg DAILY GT 09/14/19 09:00 10/07/19 08:59 09/17/19 08:34 Dextrose (Dextrose 50%) 25 ml Q30M PRN IV Hypoglycemia 09/14/19 02:30 10/06/19 17:59 Dextrose (Dextrose 50%) 50 ml Q30M PRN IV Hypoglycemia 09/14/19 02:30 10/06/19 17:59 Gabapentin (Neurontin) 250 mg TID GT 09/14/19 09:00 10/06/19 19:59 09/17/19 12:31 Insulin Aspart (NovoLOG) Q6HR SUBQ 09/14/19 06:00 10/07/19 00:00 09/17/19 12:32 Iohexol (OMNIPAQUE-300 100ml) 100 ml ONCE PRN INJ radiology procedure 09/17/19 14:15 09/19/19 14:14 Meropenem 1 gm/ Sodium Chloride 55 ml @ 110 mls/hr Q8HR IVPB 09/14/19 06:00 09/25/19 23:59 09/17/19 13:03 Nitroglycerin (Ntg) 0.4 mg Q5M PRN SL Prn Chest Pain 09/14/19 02:15 10/06/19 15:59 Ondansetron HCl (Zofran) 4 mg Q6H PRN IVP Nausea & Vomiting 09/14/19 04:00 10/06/19 15:59 Polyethylene Glycol (Miralax) 17 gm DAILYPRN PRN GT Constipation 09/14/19 18:15 10/06/19 15:59 Sodium Chloride 1,000 ml @ 75 mls/hr [id number] IV 09/14/19 02:15 10/13/19 11:14 09/17/19 10:25 Vancomycin HCl (Vanco rx to dose) 1 ea DAILY PRN MISC Per rx protocol 09/14/19 09:00 10/06/19 15:59 Vancomycin HCl 500 mg/Dextrose 110 ml @ 110 mls/hr Q12H IVPB 09/17/19 15:00 09/22/19 14:59 Sowmya Abbasi MD Sep 17, 2019 15:38
[2019-09-17 16:00] VITALS: BP 127/81
[2019-09-17] MEDS: Vancomycin 500mg/D5W 110ml IVPB SCH ×2 (17:17)
--- NOTE | 2019-09-17 19:20 | NUR ---
HAND-OFF: Report given to SERGIO Grayson.
--- NOTE | 2019-09-17 19:30 | NUR ---
NURSE NOTES: Patient awake, non-verbal; on Venturi mask, no sign of distress nor shortness of breath; IV Left-Wrist 24G NS 75 ml running; iv patent, asymptomatic. Tube Feeding Glucerna 1.5 running at 50cc, no residual; Benavidez in place, draining yellow urine; dressing on, wound dry and intact; upper and lower extremities contracted; side rails up x2, bed at lowest position, locked and bed alarm on; will continue to monitor
[2019-09-17 20:00] VITALS: BP 117/56
[2019-09-18] VITALS: BP 127/61
[2019-09-18] MEDS: NovoLOG Insulin Flexpen SUBQ SCH ×5 (01:17→23:25)
[2019-09-18] MEDS: Vancomycin 500mg/D5W 110ml IVPB SCH ×4 (02:57→15:30)
[2019-09-18 04:00] VITALS: BP 129/72
[2019-09-18] MEDS: Meropenem 1 GM in NS 55 ML IVPB SCH ×3 (05:24→21:17)
--- NOTE | 2019-09-18 06:46 | NUR ---
NURSE NOTES: changed dressing
--- NOTE | 2019-09-18 07:30 | NUR ---
NURSE NOTES: Received pt from SERGIO CAVAZOS. pt is awake A&O X1 and nonverbal. Pt has VENTURI MASK, RN called RT to change it to NC as order. pt has intact iv access LH 24G is running well. Pt has g tube in place is working well. pt has Benavidez cath in place is running well. No complain of pain at this moment. all needs attended, bed is locked and is in the lowest position, call light within easy reach. will continue to monitor.
--- NOTE | 2019-09-18 07:32 | NUR ---
HAND-OFF: Report given to SERGIO Harrison.
[2019-09-18 07:41] LABS: BASOPHILS % (AUTO) 1.3 % (0.0-2.0); EOSINOPHILS % (AUTO) 1.5 % (0.0-3.0); HEMATOCRIT 30.7 % (42.0-52.0); HEMOGLOBIN 10.6 G/DL (14.2-18.0); MEAN CORPUSCULAR VOLUME 93 FL (80-99); MONOCYTES % (AUTO) 7.2 % (1.0-10.0); NEUTROPHILS % (AUTO) 76.1 % (45.0-75.0); PLATELET COUNT 491 K/UL (150-450); RED CELL DISTRIBUTION WIDTH 12.8 % (11.6-14.8); WHITE BLOOD COUNT 5.7 K/UL (4.8-10.8)
[2019-09-18 08:00] VITALS: BP 119/59
[2019-09-18] MEDS: Acetaminophen 650mg/20.3ml GT PRN (08:58)
[2019-09-18] MEDS: Gabapentin 300 MG/6 ML Soln GT SCH ×3 (08:58→17:48)
--- NOTE | 2019-09-18 09:53 | NUR ---
RESPIRATORY NOTE: Received pt on 5L nasal canula sating 91%. I asked the RN who switched him from venturi mask, she said " the DR did because they want him on nasal canula." RN aware of saturation. Will continue to monitor.
--- NOTE | 2019-09-18 10:42 | NUR ---
NURSE NOTES: RT changed venturi mask to NC with 4LMP, SPO2 91, Dr MARCUM visited pt and notified, stated it is fine and no new order to RN. will continue to monitor.
--- NOTE | 2019-09-18 10:55 | NUR ---
NURSE NOTES: pt is awake and stable, left unit with NC 4LMP to CT scan, waiting to come back.
--- NOTE | 2019-09-18 11:47 | NUR ---
NURSE NOTES: PT CAME BACK FROM CT,PT IS AWAKE AND STABLE. WILL CONTINUE TO MONITOR.
[2019-09-18 12:00] VITALS: BP 121/63
--- NOTE | 2019-09-18 12:08 | Diagnostic Imaging Report ---
Indication: Right shoulder pain. Infection. Status post incision and drainage. Evaluation for abscess Technique: Continuous helical transaxial imaging of the right shoulder was obtained. Coronal and Sagittal 2-D reformats were also obtained. Intravenous contrast was given. Study obtained in a Siemens sensation [address] Total Dose length Product (DLP): Refer to CT chest mGycm CT Dose Index Volume (CTDIvol): Refer to CT chest mGy Comparison: Noncontrast CT right shoulder 09/13/2019 Findings: There is no abscess. No erosion or lytic abnormality identified. There is a extensive osseous fusion of the glenohumeral joint during the scapula/inferior glenoid and the humerus. Small skin defect noted posteriorly near the scapular spine which is presumably the site of previous incision and drainage. IMPRESSION: No evidence of abscess. The CT scanner at [facility] is accredited by the [employer] and the scans are performed using dose optimization techniques as appropriate to a performed exam including Automatic Exposure control.
--- NOTE | 2019-09-18 12:19 | NUR ---
RD ASSESSMENT & RECOMMENDATIONS SEE CARE ACTIVITY FOR COMPLETE ASSESSMENT DAILY ESTIMATED NEEDS: Needs based on cardiac, wound healing, DM/ 70kg 25-30 kcals/kg 1946-5979 total kcals 1.25-1.5 g protein/kg 87-105 g total protein 25-30 mL/kg 9669-3746 total fluid mLs NUTRITION DIAGNOSIS: * Swallowing difficulty R/T dysphagia as evidenced by pt PEG dependent. * Increased Kcal and pro needs r/t wound healing as evidenced by pt admitted w/ full thickness wounds at R scapula and L elbow, non-blanching erythema at rt heel. * Altered nutrition related lab values R/T h/o DM as evidenced by elev POC glu (106-201-> now 112-159), on NISS. CURRENT TF:Glucerna 1.5@ 50mL/hr x 24 hrs. ENTERAL NUTRITION RECOMMENDATIONS: Glucerna 1.5 @ 50ml/hr x 24 hrs to provide 1200ml, 1800kcal, 99g prot, 911ml free water * Maintain Glucerna 1.5 @ 50ml/hr x24hrs. * HOB over 30 degrees * Water flush of 240ml q 6hrs ADDITIONAL RECOMMENDATIONS: * Calibrated bedscale wt for accurate CBW EMR wt= 175# vs bedscale wt 09/0784=197.78# * Check A1C for eval of glycemic control: h/o DM * Monitor lytes, replete as needed (low phos and mag) * Wound healing: add Vit C 250mg QD + ZnSO4 220mg QD x 10 days add Phillip 1pkt BID .
--- NOTE | 2019-09-18 12:29 | Infectious Diseases Prog Note ---
Assessment/Plan Assessment/Plan 79yo gentleman with PMH below presents from senior care for hypoxia and report of cough. Pt was recently admitted at this hospital 08/15-08/22 for sepsis 2/2 R shoulder abscess. Pt was discharged on zosyn and vancomycin. Pt unable to provide history. Per senior care records, they were concerned for pneumonia. Pt was started on levaquin/flagyl early August. Fever Leukopenia, SP No lactic acidosis Pseudomonas PNA -09/18 CT chest: Combination of atelectasis and dense pneumonia involving the left lower lobe. Please correlate clinically. Additional patchy groundglass infiltrates in both upper lobes also present. Atherosclerotic disease. Acute hypoxic respiratory failure on nasal cannula supplement CXR: Pneumonia versus atelectasis at the left lung base. sputum cx: Pseudomonas 09/11 CXR: New right suprahilar and increasing left basilar infiltrates, since prior study of 5 days earlier 09/15 CXR: Increased left mid and lower lung patchy atelectasis and/or consolidation Unlikely UTI UA negative Persistent CoNS bacteremia, albeit diff species. 2/2 pressure ulcers? shoulder abscess? cervical spine prosthetic infection? R shoulder osteomyelitis? 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 Thickened mitral valve leaflets with normal excursion. Mitral annulus and aortic root calcification. Pulmonic valve not visualized. Normal tricuspid valve structure. 09/13 UE/LE duplex: negative for DVT 09/13 bcx: ngtd 09/14 BCx: P h/o Staph capitis(CoNS) bacteremia 08/15 08/16 BCx: NG h/o R shoulder abscess 09/18 CT shoulder: No evidence of abscess. 08/20 cx: Proteus, CoNS 09/13 CT shoulder: Since 08/22/2019, previously demonstrated right posterior shoulder superficial wound is largely closed. There is some residual gas and what appears to be scar tissue in the area. No definite abscess currently, although evaluation for such is limited in the absence of IV contrast. Multifocal bilateral pulmonary parenchymal infiltrates, presumably pneumonia, are noted. Extensive heterotopic new bone surrounding the right shoulder is again demonstrated. Correlate with clinical history. Evidence of prior cervical spine fusion surgery. MRSA screen negative HTN FTT Anemia CVA Aphasia G tube malfunction BPH DM Bedbound OA Dementia NH resident DNR Plan: Meropenem #8/ and vanc #13 09/11 SP cefepime #5 f/u repeat bcx aspiration precaution, elevate HOB G tube care skin care at this point, concerning for infection of L knee prosthetic and/or neck prosthesis. once pneumonia improves, will obtain indium scan to evaluate previous cervical spine fusion surgery site and the R shoulder in the setting of persistent GPC bacteremia. if we obtain indium scan now, likely the lungs will light up. Thank you for this consult. [facility] will continue to follow the patient with you. Subjective Allergies: Coded Allergies: HYDROMORPHONE (Unverified Allergy, Unknown, 01/04/18) Objective Vital Signs Last 24 Hour Vital Signs Date Time Temp Pulse Resp B/P (MAP) Pulse Ox O2 Delivery O2 Flow Rate FiO2 09/18/19 12:00 98.1 89 19 121/63 (82) 95 09/18/19 09:51 91 Nasal Cannula 5.0 40 09/18/19 09:28 98.0 09/18/19 09:00 Venturi Mask 09/18/19 08:58 99 119/59 09/18/19 08:00 45 09/18/19 08:00 98.0 99 19 119/59 (79) 97 09/18/19 04:00 99.4 105 24 129/72 (91) 95 09/18/19 04:00 45 09/18/19 00:00 99.4 106 22 127/61 (83) 97 09/18/19 00:00 45 09/17/19 21:00 Venturi Mask 09/17/19 20:00 45 09/17/19 20:00 99.4 108 24 117/56 (76) 98 09/17/19 19:56 98 Venturi Mask 12.0 50 09/17/19 16:00 45 09/17/19 16:00 98.9 98 18 127/81 (96) 99 Height (Feet): 5 Height (Inches): 11.00 Weight (Pounds): 167 Laboratory Tests Test 09/17/19 13:05 09/18/19 07:10 Vancomycin Level Trough 11.4 ug/mL (5.0-12.0) White Blood Count 5.7 K/UL (4.8-10.8) Red Blood Count 3.30 M/UL (4.70-6.10) L Hemoglobin 10.6 G/DL (14.2-18.0) L Hematocrit 30.7 % (42.0-52.0) L Mean Corpuscular Volume 93 FL (80-99) Mean Corpuscular Hemoglobin 32.0 PG (27.0-31.0) H Mean Corpuscular Hemoglobin Concent 34.4 G/DL (32.0-36.0) Red Cell Distribution Width 12.8 % (11.6-14.8) Platelet Count 491 K/UL (150-450) H Mean Platelet Volume 6.0 FL (6.5-10.1) L Neutrophils (%) (Auto) 76.1 % (45.0-75.0) H Lymphocytes (%) (Auto) 14.0 % (20.0-45.0) L Monocytes (%) (Auto) 7.2 % (1.0-10.0) Eosinophils (%) (Auto) 1.5 % (0.0-3.0) Basophils (%) (Auto) 1.3 % (0.0-2.0) Erythrocyte Sedimentation Rate 29 MM/HR (0-20) H C-Reactive Protein, Quantitative 4.9 mg/dL (0.00-0.90) H Current Medications Medications (Trade) Dose Ordered Sig/Nelson Route PRN Reason Start Time Stop Time Status Last Admin Dose Admin Acetaminophen (Tylenol) 650 mg Q4H PRN GT Mild Pain/Temp > 100.5 09/14/19 02:45 10/06/19 18:44 09/18/19 08:58 Amlodipine Besylate (Norvasc) 5 mg DAILY GT 09/14/19 09:00 10/07/19 08:59 09/18/19 08:58 Dextrose (Dextrose 50%) 25 ml Q30M PRN IV Hypoglycemia 09/14/19 02:30 10/06/19 17:59 Dextrose (Dextrose 50%) 50 ml Q30M PRN IV Hypoglycemia 09/14/19 02:30 10/06/19 17:59 Gabapentin (Neurontin) 250 mg TID GT 09/14/19 09:00 10/06/19 19:59 09/18/19 12:07 Insulin Aspart (NovoLOG) Q6HR SUBQ 09/14/19 06:00 10/07/19 00:00 09/18/19 12:10 Iohexol (OMNIPAQUE-300 100ml) 100 ml ONCE PRN INJ radiology procedure 09/17/19 14:15 09/19/19 14:14 Meropenem 1 gm/ Sodium Chloride 55 ml @ 110 mls/hr Q8HR IVPB 09/14/19 06:00 09/25/19 23:59 09/18/19 05:24 Nitroglycerin (Ntg) 0.4 mg Q5M PRN SL Prn Chest Pain 09/14/19 02:15 10/06/19 15:59 Ondansetron HCl (Zofran) 4 mg Q6H PRN IVP Nausea & Vomiting 09/14/19 04:00 10/06/19 15:59 Polyethylene Glycol (Miralax) 17 gm DAILYPRN PRN GT Constipation 09/14/19 18:15 10/06/19 15:59 Sodium Chloride 1,000 ml @ 75 mls/hr [id number] IV 09/14/19 02:15 10/13/19 11:14 09/17/19 23:31 Vancomycin HCl (Vanco rx to dose) 1 ea DAILY PRN MISC Per rx protocol 09/14/19 09:00 10/06/19 15:59 Vancomycin HCl 500 mg/Dextrose 110 ml @ 110 mls/hr Q12H IVPB 09/17/19 15:00 09/22/19 14:59 09/18/19 02:57 Avril Zaragoza M.D. Sep 18, 2019 12:29
--- NOTE | 2019-09-18 12:38 | Diagnostic Imaging Report ---
Indication: Pneumonia. CVA. Dementia. Hypertension chest pain Technique: Continuous helical transaxial imaging of the chest was obtained from the thoracic inlet to the upper abdomen after intravenous nonionic contrast administration. Coronal 2-D reformats were also obtained. Automatic Exposure Control was utilized. Total Dose length Product (DLP): [address] Dose Index Volume (CTDIvol): 21.2 mGy Comparison: none Findings: There is dense left basilar consolidation with air bronchograms extending from the left lung base at the level of the diaphragm to the left hilum. Portion of this is atelectasis given some associated volume loss, but the consolidative focus is suspected of representing predominantly pneumonia. There is no pleural effusion. There are other infiltrates mainly groundglass opacities within portions of the right upper and left upper lobes. The volume loss results in some shift of the heart and mediastinum to the left. Calcification of the coronary arteries and aorta is moderate. The visualized part of the upper abdomen is unremarkable. There is a small hiatal hernia. IMPRESSION: Combination of atelectasis and dense pneumonia involving the left lower lobe. Please correlate clinically. Additional patchy groundglass infiltrates in both upper lobes also present. Atherosclerotic disease. The CT scanner at [facility] is accredited by the [employer] and the scans are performed using dose optimization techniques as appropriate to a performed exam including Automatic Exposure control.
--- NOTE | 2019-09-18 14:20 | NUR ---
CASE MANAGEMENT:REVIEW 09/15/19 SI: PNA 97.5 108 20 160/94 99% ON VENTURI MASK 14L 55% RBC 3.10 H/H10.0/30.4 CO2 34 IS: IV VANCOMYCIN Q48HRS IV MEROPENEM Q8HRS NORVASC GT QD HEPARIN SQ Q12 : TELEMETRY STATUS DCP: [facility] PLAN: WEAN OFF VENTURI MASK
--- NOTE | 2019-09-18 14:23 | NUR ---
CASE MANAGEMENT:REVIEW 09/18/19 SI: PNA 98.0 99 19 119/54 97% ON VENTURI MASK 14L 55% RBC 3.30 H/H 10.6/30.7 IS: IVF NS @75ML/HR IV VANCOMYCIN Q48HRS IV MEROPENEM Q8HR NORVASC GT QD HEPARIN SQ Q12 NEURONTIN GT TID NOVOLOG SQ Q6HR : 4E MED SURG DCP: [facility] PLAN: WEAN OFF VENTURI MASK + BACTEREMIA REPEAT CXR REPEAT CT SHOULDER
--- NOTE | 2019-09-18 14:51 | Pulmonology Progress Note ---
Assessment/Plan Problems: (1) Healthcare-associated pneumonia (2) At high risk for aspiration (3) History of CVA (cerebrovascular accident) (4) Advanced dementia (5) G tube feedings (6) HTN (hypertension) Assessment/Plan CXR is worse afebrile yesterday still on face mask CT showed bilateral infiltrate, LLL consolidation CT of shoulder didn't show any abscess, but showed extensive lung infiltrate adjust abx, on meropenem and vancomycin respiratory treatment titrate fio2 to sat of 92% aspiration precaution dvt prophylaxis blood cultures are persistently positive, with different strains of coag negative staff Subjective ROS Limited/Unobtainable: No Constitutional: Reports: no symptoms HEENT: Repors: no symptoms Respiratory: Reports: no symptoms Allergies: Coded Allergies: HYDROMORPHONE (Unverified Allergy, Unknown, 01/04/18) Objective Last 24 Hour Vital Signs Date Time Temp Pulse Resp B/P (MAP) Pulse Ox O2 Delivery O2 Flow Rate FiO2 09/18/19 12:00 98.1 89 19 121/63 (82) 95 09/18/19 09:51 91 Nasal Cannula 5.0 40 09/18/19 09:28 98.0 09/18/19 09:00 Venturi Mask 09/18/19 08:58 99 119/59 09/18/19 08:00 45 09/18/19 08:00 98.0 99 19 119/59 (79) 97 09/18/19 04:00 99.4 105 24 129/72 (91) 95 09/18/19 04:00 45 09/18/19 00:00 99.4 106 22 127/61 (83) 97 09/18/19 00:00 45 09/17/19 21:00 Venturi Mask 09/17/19 20:00 45 09/17/19 20:00 99.4 108 24 117/56 (76) 98 09/17/19 19:56 98 Venturi Mask 12.0 50 09/17/19 16:00 45 09/17/19 16:00 98.9 98 18 127/81 (96) 99 Intake and Output 09/17/19 09/18/19 18:59 06:59 Intake Total 2709 ml 3825 ml Output Total 1800 ml Balance 2709 ml 2025 ml Intake Free Water 500 ml 250 ml IV Total 1609 ml 3475 ml Tube Feeding 600 ml 100 ml Output Urine Total 1800 ml Stool Total 0 ml # Voids 2 # Bowel Movements 1 Objective General Appearance: cachetic HEENT: normocephalic, atraumatic Respiratory/Chest: chest wall non-tender, normal breath sounds Cardiovascular: normal rate, regular rhythm Abdomen: normal bowel sounds, soft, non tender Genitourinary: normal external genitalia Extremities: no cyanosis Skin: no rash, no lesions Laboratory Tests 09/18/19 07:10: White Blood Count 5.7, Red Blood Count 3.30L, Hemoglobin 10.6L, Hematocrit 30.7L , Mean Corpuscular Volume 93, Mean Corpuscular Hemoglobin 32.0H, Mean Corpuscular Hemoglobin Concent 34.4, Red Cell Distribution Width 12.8, Platelet Count 491H, Mean Platelet Volume 6.0L, Neutrophils (%) (Auto) 76.1H, Lymphocytes (%) (Auto) 14.0L, Monocytes (%) (Auto) 7.2, Eosinophils (%) (Auto) 1.5, Basophils (%) (Auto) 1.3, Erythrocyte Sedimentation Rate 29H, C-Reactive Protein, Quantitative 4.9H Current Medications Medications (Trade) Dose Ordered Sig/Nelson Route PRN Reason Start Time Stop Time Status Last Admin Dose Admin Acetaminophen (Tylenol) 650 mg Q4H PRN GT Mild Pain/Temp > 100.5 09/14/19 02:45 10/06/19 18:44 09/18/19 08:58 Amlodipine Besylate (Norvasc) 5 mg DAILY GT 09/14/19 09:00 10/07/19 08:59 09/18/19 08:58 Dextrose (Dextrose 50%) 25 ml Q30M PRN IV Hypoglycemia 09/14/19 02:30 10/06/19 17:59 Dextrose (Dextrose 50%) 50 ml Q30M PRN IV Hypoglycemia 09/14/19 02:30 10/06/19 17:59 Gabapentin (Neurontin) 250 mg TID GT 09/14/19 09:00 10/06/19 19:59 09/18/19 12:07 Insulin Aspart (NovoLOG) Q6HR SUBQ 09/14/19 06:00 10/07/19 00:00 09/18/19 12:10 Iohexol (OMNIPAQUE-300 100ml) 100 ml ONCE PRN INJ radiology procedure 09/17/19 14:15 09/19/19 14:14 Meropenem 1 gm/ Sodium Chloride 55 ml @ 110 mls/hr Q8HR IVPB 09/14/19 06:00 09/25/19 23:59 09/18/19 13:53 Nitroglycerin (Ntg) 0.4 mg Q5M PRN SL Prn Chest Pain 09/14/19 02:15 10/06/19 15:59 Ondansetron HCl (Zofran) 4 mg Q6H PRN IVP Nausea & Vomiting 09/14/19 04:00 10/06/19 15:59 Polyethylene Glycol (Miralax) 17 gm DAILYPRN PRN GT Constipation 09/14/19 18:15 10/06/19 15:59 Sodium Chloride 1,000 ml @ 75 mls/hr [id number] IV 09/14/19 02:15 10/13/19 11:14 09/17/19 23:31 Vancomycin HCl (Vanco rx to dose) 1 ea DAILY PRN MISC Per rx protocol 09/14/19 09:00 10/06/19 15:59 Vancomycin HCl 500 mg/Dextrose 110 ml @ 110 mls/hr Q12H IVPB 09/17/19 15:00 09/22/19 14:59 09/18/19 02:57 Sowmya Abbasi MD Sep 18, 2019 14:51
[2019-09-18 15:57] VITALS: BP 134/66
--- NOTE | 2019-09-18 16:30 | NUR ---
NURSE NOTES: pt has diarrhea X3 during shift, Dr BLISS notified ordered to C DIFF, noted and carried out. will continue to monitor.
--- NOTE | 2019-09-18 17:12 | NUR ---
NURSE NOTES: stool specimen sent to lab waiting for result.
--- NOTE | 2019-09-18 19:21 | NUR ---
HAND-OFF: Report given to ASIF HILL. Pt is awake and alert. Endorsed to observe pt for spo2 and diarrhea.
--- NOTE | 2019-09-18 19:40 | NUR ---
NURSE NOTES: Received patient awake in bed, nasal cannula noted at 5L. IV access intact running IVF at 75ml/ht. Benavidez catheter noted, patent and draining. No s/s of acute distress. Bed low and locked. G tube feeding on continuous 50ml/hr.
[2019-09-18 20:00] VITALS: BP 133/72
[2019-09-19] VITALS: BP 137/70
[2019-09-19] MEDS: Vancomycin 500mg/D5W 110ml IVPB SCH ×6 (03:10→15:52)
[2019-09-19 04:00] VITALS: BP 145/75
[2019-09-19 04:49] LABS: BASOPHILS % (AUTO) 0.4 % (0.0-2.0); EOSINOPHILS % (AUTO) 0.6 % (0.0-3.0); HEMATOCRIT 30.2 % (42.0-52.0); HEMOGLOBIN 9.7 G/DL (14.2-18.0); LYMPHOCYTES % (AUTO) 14.7 % (20.0-45.0); MEAN CORPUSCULAR VOLUME 98 FL (80-99); MONOCYTES % (AUTO) 5.9 % (1.0-10.0); NEUTROPHILS % (AUTO) 78.5 % (45.0-75.0); PLATELET COUNT 519 K/UL (150-450); RED BLOOD COUNT 3.08 M/UL (4.70-6.10)
[2019-09-19] MEDS: Meropenem 1 GM in NS 55 ML IVPB SCH ×3 (05:02→21:16)
[2019-09-19 05:23] LABS: ALANINE AMINOTRANSFERASE 25 U/L (12-78); ALBUMIN 1.8 G/DL (3.4-5.0); ALBUMIN/GLOBULIN RATIO 0.3 (1.0-2.7); ALKALINE PHOSPHATASE 74 U/L (46-116); ANION GAP 7 mmol/L (5-15); ASPARTATE AMINO TRANSFERASE 26 U/L (15-37); BILIRUBIN,TOTAL 0.6 MG/DL (0.2-1.0); BLOOD UREA NITROGEN 17 mg/dL (7-18); CALCIUM 8.5 MG/DL (8.5-10.1); CARBON DIOXIDE 28 MMOL/L (21-32); CHLORIDE 101 MMOL/L (98-107); CREATININE 0.5 MG/DL (0.55-1.30); PHOSPHORUS 2.3 MG/DL (2.5-4.9); POTASSIUM 4.1 MMOL/L (3.5-5.1); SODIUM 136 MMOL/L (136-145)
[2019-09-19] MEDS: NovoLOG Insulin Flexpen SUBQ SCH ×3 (06:00→18:00)
--- NOTE | 2019-09-19 07:25 | NUR ---
HAND-OFF: Report given to SERGIO Harrison.
--- NOTE | 2019-09-19 07:30 | NUR ---
NURSE NOTES: Received pt from SERGIO GOLD. pt is awake A&O X1 and nonverbal. Pt has NC 3LMP. pt has intact iv access LH 24G is running well. Pt has g tube in place is working well. pt has Benavidez cath in place is running well. all needs attended, bed is locked and is in the lowest position, call light within easy reach. will continue to monitor.
[2019-09-19 08:00] VITALS: BP 145/76
[2019-09-19] MEDS: Gabapentin 300 MG/6 ML Soln GT SCH ×3 (09:49→17:13)
[2019-09-19] MEDS: Acetaminophen 650mg/20.3ml GT PRN (09:58)
--- NOTE | 2019-09-19 11:48 | Infectious Diseases Prog Note ---
Assessment/Plan Assessment/Plan 79yo gentleman with PMH below presents from alf for hypoxia and report of cough. Pt was recently admitted at this hospital 08/15-08/22 for sepsis 2/2 R shoulder abscess. Pt was discharged on zosyn and vancomycin. Pt unable to provide history. Per alf records, they were concerned for pneumonia. Pt was started on levaquin/flagyl early August. Fever; SP Leukopenia, SP No lactic acidosis Pseudomonas PNA -09/18 CT chest: Combination of atelectasis and dense pneumonia involving the left lower lobe. Please correlate clinically. Additional patchy groundglass infiltrates in both upper lobes also present. Atherosclerotic disease. Acute hypoxic respiratory failure on nasal cannula supplement CXR: Pneumonia versus atelectasis at the left lung base. sputum cx: Pseudomonas 09/11 CXR: New right suprahilar and increasing left basilar infiltrates, since prior study of 5 days earlier 09/15 CXR: Increased left mid and lower lung patchy atelectasis and/or consolidation Unlikely UTI UA negative Persistent CoNS bacteremia, albeit diff species. 2/2 pressure ulcers? shoulder abscess? cervical spine prosthetic infection? R shoulder osteomyelitis? 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 Thickened mitral valve leaflets with normal excursion. Mitral annulus and aortic root calcification. Pulmonic valve not visualized. Normal tricuspid valve structure. 09/13 UE/LE duplex: negative for DVT 09/13 bcx: ngtd 09/14 BCx: NTD h/o Staph capitis(CoNS) bacteremia 08/15 08/16 BCx: NG h/o R shoulder abscess 09/18 CT shoulder: No evidence of abscess. 08/20 cx: Proteus, CoNS 09/13 CT shoulder: Since 08/22/2019, previously demonstrated right posterior shoulder superficial wound is largely closed. There is some residual gas and what appears to be scar tissue in the area. No definite abscess currently, although evaluation for such is limited in the absence of IV contrast. Multifocal bilateral pulmonary parenchymal infiltrates, presumably pneumonia, are noted. Extensive heterotopic new bone surrounding the right shoulder is again demonstrated. Correlate with clinical history. Evidence of prior cervical spine fusion surgery. MRSA screen negative HTN FTT Anemia CVA Aphasia G tube malfunction BPH DM Bedbound OA Dementia NH resident DNR Plan: Meropenem #07/08 and vanc # Start PO Vancomycin 125mg qid #11/07 09/11 SP cefepime #5 f/u repeat bcx aspiration precaution, elevate HOB G tube care skin care at this point, concerning for infection of L knee prosthetic and/or neck prosthesis. once pneumonia improves, will obtain indium scan to evaluate previous cervical spine fusion surgery site and the R shoulder in the setting of persistent GPC bacteremia. if we obtain indium scan now, likely the lungs will light up. Thank you for this consult. [facility] will continue to follow the patient with you. Subjective Allergies: Coded Allergies: HYDROMORPHONE (Unverified Allergy, Unknown, 01/04/18) Subjective afebrile >72hrs no leukocytosis Objective Vital Signs Last 24 Hour Vital Signs Date Time Temp Pulse Resp B/P (MAP) Pulse Ox O2 Delivery O2 Flow Rate FiO2 09/19/19 10:28 99.3 09/19/19 09:55 115 142/91 09/19/19 09:00 Venturi Mask 09/19/19 08:16 95 Nasal Cannula 2.0 28 09/19/19 08:00 99.3 115 20 145/76 (99) 99 09/19/19 04:00 98.2 109 20 145/75 (98) 98 09/19/19 00:00 99.1 108 20 137/70 (92) 98 09/18/19 21:28 Venturi Mask 09/18/19 20:00 98.3 103 20 133/72 (92) 98 09/18/19 19:00 98 09/18/19 15:57 98.8 114 20 134/66 (88) 98 09/18/19 12:00 98.1 89 19 121/63 (82) 95 Height (Feet): 5 Height (Inches): 11.00 Weight (Pounds): 167 Objective General Appearance: cachetic HEENT: normocephalic, atraumatic Respiratory/Chest: chest wall non-tender, normal breath sounds Cardiovascular: normal rate, regular rhythm Abdomen: normal bowel sounds, soft, non tender Genitourinary: normal external genitalia Extremities: no cyanosis Skin: no rash, no lesions Microbiology Date/Time Source Procedure Growth Status 09/18/19 17:00 Stool Clostridium difficile Toxin Assay - Final Complete Laboratory Tests Test 09/19/19 01:57 09/19/19 04:30 Vancomycin Level Trough 16.0 ug/mL (5.0-12.0) H White Blood Count 8.0 K/UL (4.8-10.8) Red Blood Count 3.08 M/UL (4.70-6.10) L Hemoglobin 9.7 G/DL (14.2-18.0) L Hematocrit 30.2 % (42.0-52.0) L Mean Corpuscular Volume 98 FL (80-99) Mean Corpuscular Hemoglobin 31.5 PG (27.0-31.0) H Mean Corpuscular Hemoglobin Concent 32.2 G/DL (32.0-36.0) Red Cell Distribution Width 14.0 % (11.6-14.8) Platelet Count 519 K/UL (150-450) H Mean Platelet Volume 6.2 FL (6.5-10.1) L Neutrophils (%) (Auto) 78.5 % (45.0-75.0) H Lymphocytes (%) (Auto) 14.7 % (20.0-45.0) L Monocytes (%) (Auto) 5.9 % (1.0-10.0) Eosinophils (%) (Auto) 0.6 % (0.0-3.0) Basophils (%) (Auto) 0.4 % (0.0-2.0) Erythrocyte Sedimentation Rate 60 MM/HR (0-20) H Sodium Level 136 MMOL/L (136-145) Potassium Level 4.1 MMOL/L (3.5-5.1) Chloride Level 101 MMOL/L (98-107) Carbon Dioxide Level 28 MMOL/L (21-32) Anion Gap 7 mmol/L (5-15) Blood Urea Nitrogen 17 mg/dL (7-18) Creatinine 0.5 MG/DL (0.55-1.30) L Estimat Glomerular Filtration Rate mL/min (>60) Glucose Level 103 MG/DL (74-106) Calcium Level 8.5 MG/DL (8.5-10.1) Phosphorus Level 2.3 MG/DL (2.5-4.9) L Magnesium Level 1.9 MG/DL (1.8-2.4) Total Bilirubin 0.6 MG/DL (0.2-1.0) Aspartate Amino Transf (AST/SGOT) 26 U/L (15-37) Alanine Aminotransferase (ALT/SGPT) 25 U/L (12-78) Alkaline Phosphatase 74 U/L (46-116) C-Reactive Protein, Quantitative 7.0 mg/dL (0.00-0.90) H Total Protein 8.5 G/DL (6.4-8.2) H Albumin 1.8 G/DL (3.4-5.0) L Globulin 6.7 g/dL Albumin/Globulin Ratio 0.3 (1.0-2.7) L Current Medications Medications (Trade) Dose Ordered Sig/Nelson Route PRN Reason Start Time Stop Time Status Last Admin Dose Admin Acetaminophen (Tylenol) 650 mg Q4H PRN GT Mild Pain/Temp > 100.5 09/14/19 02:45 10/06/19 18:44 09/19/19 09:58 Amlodipine Besylate (Norvasc) 5 mg DAILY GT 09/14/19 09:00 10/07/19 08:59 09/19/19 09:55 Dextrose (Dextrose 50%) 25 ml Q30M PRN IV Hypoglycemia 09/14/19 02:30 10/06/19 17:59 Dextrose (Dextrose 50%) 50 ml Q30M PRN IV Hypoglycemia 09/14/19 02:30 10/06/19 17:59 Gabapentin (Neurontin) 250 mg TID GT 09/14/19 09:00 10/06/19 19:59 09/19/19 09:49 Insulin Aspart (NovoLOG) Q6HR SUBQ 09/14/19 06:00 10/07/19 00:00 09/18/19 17:55 Iohexol (OMNIPAQUE-300 100ml) 100 ml ONCE PRN INJ radiology procedure 09/17/19 14:15 09/19/19 14:14 Meropenem 1 gm/ Sodium Chloride 55 ml @ 110 mls/hr Q8HR IVPB 09/14/19 06:00 09/25/19 23:59 09/19/19 05:02 Nitroglycerin (Ntg) 0.4 mg Q5M PRN SL Prn Chest Pain 09/14/19 02:15 10/06/19 15:59 Ondansetron HCl (Zofran) 4 mg Q6H PRN IVP Nausea & Vomiting 09/14/19 04:00 10/06/19 15:59 Polyethylene Glycol (Miralax) 17 gm DAILYPRN PRN GT Constipation 09/14/19 18:15 10/06/19 15:59 Sodium Chloride 1,000 ml @ 75 mls/hr [id number] IV 09/14/19 02:15 10/13/19 11:14 09/18/19 17:48 Vancomycin HCl (Vanco rx to dose) 1 ea DAILY PRN MISC Per rx protocol 09/14/19 09:00 10/06/19 15:59 Vancomycin HCl 500 mg/Dextrose 110 ml @ 110 mls/hr Q12H IVPB 09/17/19 15:00 09/22/19 14:59 09/19/19 03:10 Avril Zaragoza M.D. Sep 19, 2019 11:48
[2019-09-19 12:00] VITALS: BP 134/78
--- NOTE | 2019-09-19 12:32 | Pulmonology Progress Note ---
Assessment/Plan Problems: (1) C. difficile colitis (2) Healthcare-associated pneumonia (3) At high risk for aspiration (4) History of CVA (cerebrovascular accident) (5) Advanced dementia (6) G tube feedings (7) HTN (hypertension) Assessment/Plan C-diff positive now afebrile yesterday still on face mask CT showed bilateral infiltrate, LLL consolidation CT of shoulder didn't show any abscess, but showed extensive lung infiltrate adjust abx, on meropenem and vancomycin respiratory treatment titrate fio2 to sat of 92% aspiration precaution dvt prophylaxis blood cultures are persistently positive, with different strains of coag negative staff Subjective ROS Limited/Unobtainable: No Constitutional: Reports: no symptoms HEENT: Repors: no symptoms Allergies: Coded Allergies: HYDROMORPHONE (Unverified Allergy, Unknown, 01/04/18) Objective Last 24 Hour Vital Signs Date Time Temp Pulse Resp B/P (MAP) Pulse Ox O2 Delivery O2 Flow Rate FiO2 09/19/19 12:00 99.1 111 18 134/78 (96) 96 09/19/19 10:28 99.3 09/19/19 09:55 115 142/91 09/19/19 09:00 Venturi Mask 09/19/19 08:16 95 Nasal Cannula 2.0 28 09/19/19 08:00 99.3 115 20 145/76 (99) 99 09/19/19 04:00 98.2 109 20 145/75 (98) 98 09/19/19 00:00 99.1 108 20 137/70 (92) 98 09/18/19 21:28 Venturi Mask 09/18/19 20:00 98.3 103 20 133/72 (92) 98 09/18/19 19:00 98 09/18/19 15:57 98.8 114 20 134/66 (88) 98 Intake and Output 09/18/19 09/19/19 19:00 07:00 Intake Total 1790 ml 1150 ml Output Total 1804 ml Balance -14 ml 1150 ml Intake Free Water 250 ml 200 ml IV Total 990 ml 450 ml Tube Feeding 550 ml 500 ml Output Urine Total 1800 ml Stool Total 4 ml # Bowel Movements 3 Objective General Appearance: cachetic HEENT: normocephalic, atraumatic Respiratory/Chest: chest wall non-tender, normal breath sounds Cardiovascular: normal rate, regular rhythm Abdomen: normal bowel sounds, soft, non tender Genitourinary: normal external genitalia Extremities: no cyanosis Skin: no rash, no lesions General Appearance: WD/WN HEENT: normocephalic, atraumatic Respiratory/Chest: chest wall non-tender, lungs clear Cardiovascular: normal peripheral pulses, normal rate Abdomen: normal bowel sounds, no organomegaly Genitourinary: normal external genitalia Extremities: no clubbing Skin: no lesions Microbiology Date/Time Source Procedure Growth Status 09/18/19 17:00 Stool Clostridium difficile Toxin Assay - Final Complete Laboratory Tests 09/19/19 01:57: Vancomycin Level Trough 16.0H 09/19/19 04:30: White Blood Count 8.0, Red Blood Count 3.08L, Hemoglobin 9.7L, Hematocrit 30.2L , Mean Corpuscular Volume 98, Mean Corpuscular Hemoglobin 31.5H, Mean Corpuscular Hemoglobin Concent 32.2, Red Cell Distribution Width 14.0, Platelet Count 519H, Mean Platelet Volume 6.2L, Neutrophils (%) (Auto) 78.5H, Lymphocytes (%) (Auto) 14.7L, Monocytes (%) (Auto) 5.9, Eosinophils (%) (Auto) 0.6, Basophils (%) (Auto) 0.4, Erythrocyte Sedimentation Rate 60H, Sodium Level 136, Potassium Level 4.1, Chloride Level 101, Carbon Dioxide Level 28, Anion Gap 7, Blood Urea Nitrogen 17, Creatinine 0.5L, Estimat Glomerular Filtration Rate , Glucose Level 103, Calcium Level 8.5, Phosphorus Level 2.3L, Magnesium Level 1.9, Total Bilirubin 0.6, Aspartate Amino Transf (AST/SGOT) 26, Alanine Aminotransferase (ALT/SGPT) 25, Alkaline Phosphatase 74, C-Reactive Protein, Quantitative 7.0H, Total Protein 8.5H, Albumin 1.8L, Globulin 6.7, Albumin/ Globulin Ratio 0.3L Current Medications Medications (Trade) Dose Ordered Sig/Nelson Route PRN Reason Start Time Stop Time Status Last Admin Dose Admin Acetaminophen (Tylenol) 650 mg Q4H PRN GT Mild Pain/Temp > 100.5 09/14/19 02:45 10/06/19 18:44 09/19/19 09:58 Amlodipine Besylate (Norvasc) 5 mg DAILY GT 11/21/19 09:00 10/07/19 08:59 09/19/19 09:55 Dextrose (Dextrose 50%) 25 ml Q30M PRN IV Hypoglycemia 09/14/19 02:30 10/06/19 17:59 Dextrose (Dextrose 50%) 50 ml Q30M PRN IV Hypoglycemia 09/14/19 02:30 10/06/19 17:59 Gabapentin (Neurontin) 250 mg TID GT 09/14/19 09:00 10/06/19 19:59 09/19/19 09:49 Insulin Aspart (NovoLOG) Q6HR SUBQ 09/14/19 06:00 10/07/19 00:00 09/19/19 12:15 Iohexol (OMNIPAQUE-300 100ml) 100 ml ONCE PRN INJ radiology procedure 09/17/19 14:15 09/19/19 14:14 Meropenem 1 gm/ Sodium Chloride 55 ml @ 110 mls/hr Q8HR IVPB 09/14/19 06:00 09/25/19 23:59 09/19/19 05:02 Nitroglycerin (Ntg) 0.4 mg Q5M PRN SL Prn Chest Pain 09/14/19 02:15 10/06/19 15:59 Ondansetron HCl (Zofran) 4 mg Q6H PRN IVP Nausea & Vomiting 09/14/19 04:00 10/06/19 15:59 Polyethylene Glycol (Miralax) 17 gm DAILYPRN PRN GT Constipation 09/14/19 18:15 10/06/19 15:59 Sodium Chloride 1,000 ml @ 75 mls/hr [id number] IV 09/14/19 02:15 10/13/19 11:14 09/18/19 17:48 Vancomycin HCl (Firvanq) 125 mg FOUR TIMES A DAY ORAL 09/19/19 13:00 09/26/19 12:59 Vancomycin HCl (Vanco rx to dose) 1 ea DAILY PRN MISC Per rx protocol 09/14/19 09:00 10/06/19 15:59 Vancomycin HCl 500 mg/Dextrose 110 ml @ 110 mls/hr Q12H IVPB 09/17/19 15:00 09/22/19 14:59 09/19/19 03:10 Sowmya Abbasi MD Sep 19, 2019 12:32
[2019-09-19] MEDS: Vancomycin oral 125mg/2.5ml ORAL SCH ×3 (14:12→21:09)
--- NOTE | 2019-09-19 15:08 | Diagnostic Imaging Report ---
Indication: Dysphagia Procedure and findings: A single structural manager fluoroscopic image of the neck performed in the lateral projection followed by real-time fluoroscopic video/cine imaging performed in a lateral projection in conjunction with the speech pathologist evaluation. Variable consistencies of barium given per mouth. Findings: Significant abnormalities of both oral and pharyngeal phases of swallowing are demonstrated. Total fluoroscopic time: 100 seconds. Total number of fluoroscopic images obtained: 6 Study is limited. Thin liquids given. Patient did not swallow to command at times. Moderate pooling demonstrated. No definite aspiration seen but deep laryngeal penetration is demonstrated. Abnormal video swallow. Please refer to speech pathology evaluation for more information.
[2019-09-19 16:00] VITALS: BP 133/61
--- NOTE | 2019-09-19 19:16 | NUR ---
HAND-OFF: Report given to NELSY HILL. pt is awake and stable. Addendum: 09/19/19 at 1916 by Christy Webb RN ERROR HAND-OFF: Report given to ASIF HILL. pt is awake and stable.
[2019-09-19 20:00] VITALS: BP 143/88
--- NOTE | 2019-09-19 20:02 | NUR ---
RESPIRATORY NOTE: Received pt on 2 L/m FiO2 28%. Pt SpO2 95%, HR 105. B/S are norman. rhonchi and sx with moderate thik white/yellow secretions. no s/s of respiratory distress noted. will continue to monitor pt.
[2019-09-20] VITALS (8 sets, daily range): BP systolic 104–132; BP diastolic 55–90
[2019-09-20] MEDS: Vancomycin 500mg/D5W 110ml IVPB SCH ×4 (02:26→15:20)
[2019-09-20] MEDS: Meropenem 1 GM in NS 55 ML IVPB SCH ×3 (05:32→20:42)
[2019-09-20] MEDS: NovoLOG Insulin Flexpen SUBQ SCH ×5 (05:33→23:55)
--- NOTE | 2019-09-20 07:50 | NUR ---
HAND-OFF: Report given to SERGIO Serrano.
--- NOTE | 2019-09-20 07:51 | NUR ---
NURSE NOTES: Patient received in stable condition, resting in bed. Breathing unlabored with nasal cannula on. Feeding running via G-tube at 50cc/hr. Benavidez catheter patent and intact. IV site on left hand running fluids at 75cc/hr. Bed locked in lowest position, call light placed within reach. Will continue to monitor.
[2019-09-20] MEDS: Vancomycin oral 125mg/2.5ml ORAL SCH ×4 (08:48→20:42)
[2019-09-20] MEDS: Gabapentin 300 MG/6 ML Soln GT SCH ×3 (09:01→17:27)
--- NOTE | 2019-09-20 10:30 | NUR ---
NURSE NOTES: Blood blister discovered on patient's left medial plantar. Incident report completed, photograph taken and uploaded. PMD and wound nurse are aware. Patient's food cleaned and blister covered with optifoam per wound nurse's direction.
--- NOTE | 2019-09-20 12:52 | Pulmonology Progress Note ---
Assessment/Plan Problems: (1) C. difficile colitis (2) Healthcare-associated pneumonia (3) At high risk for aspiration (4) History of CVA (cerebrovascular accident) (5) Advanced dementia (6) G tube feedings (7) HTN (hypertension) Assessment/Plan C-diff positive now afebrile yesterday still on face mask CT showed bilateral infiltrate, LLL consolidation Keep left chest elevated CT of shoulder didn't show any abscess, but showed extensive lung infiltrate adjust abx, on meropenem and vancomycin respiratory treatment titrate fio2 to sat of 92% aspiration precaution dvt prophylaxis blood cultures are persistently positive, with different strains of coag negative staff Subjective ROS Limited/Unobtainable: No Constitutional: Reports: no symptoms HEENT: Repors: no symptoms Allergies: Coded Allergies: HYDROMORPHONE (Unverified Allergy, Unknown, 01/04/18) Objective Last 24 Hour Vital Signs Date Time Temp Pulse Resp B/P (MAP) Pulse Ox O2 Delivery O2 Flow Rate FiO2 09/20/19 12:00 99.0 102 20 119/63 (81) 91 09/20/19 09:00 Nasal Cannula 4.0 09/20/19 08:45 108 128/90 09/20/19 08:40 99.0 111 26 128/90 (103) 96 09/20/19 08:00 99.0 111 26 124/84 (97) 96 09/20/19 04:00 98.9 108 20 127/87 (100) 95 09/20/19 00:00 99.6 105 21 126/78 (94) 95 09/19/19 23:00 Nasal Cannula 4.0 09/19/19 20:02 95 Nasal Cannula 2.0 28 09/19/19 20:00 97.6 105 19 143/88 (106) 95 09/19/19 16:00 98.6 91 19 133/61 (85) 95 Intake and Output 09/19/19 09/20/19 19:00 07:00 Intake Total 1865 ml 525 ml Output Total 800 ml 2800 ml Balance 1065 ml -2275 ml Intake Free Water 250 ml IV Total 1065 ml 525 ml Tube Feeding 550 ml Output Urine Total 800 ml 2800 ml Objective General Appearance: cachetic HEENT: normocephalic, atraumatic Respiratory/Chest: chest wall non-tender, normal breath sounds Cardiovascular: normal rate, regular rhythm Abdomen: normal bowel sounds, soft, non tender Genitourinary: normal external genitalia Extremities: no cyanosis Skin: no rash, no lesions Microbiology Date/Time Source Procedure Growth Status 09/18/19 17:00 Stool Clostridium difficile Toxin Assay - Final Complete Current Medications Medications (Trade) Dose Ordered Sig/Nelson Route PRN Reason Start Time Stop Time Status Last Admin Dose Admin Acetaminophen (Tylenol) 650 mg Q4H PRN GT Mild Pain/Temp > 100.5 09/14/19 02:45 10/06/19 18:44 09/19/19 09:58 Amlodipine Besylate (Norvasc) 5 mg DAILY GT 09/14/19 09:00 10/07/19 08:59 09/20/19 08:45 Dextrose (Dextrose 50%) 25 ml Q30M PRN IV Hypoglycemia 09/14/19 02:30 10/06/19 17:59 Dextrose (Dextrose 50%) 50 ml Q30M PRN IV Hypoglycemia 09/14/19 02:30 10/06/19 17:59 Gabapentin (Neurontin) 250 mg TID GT 09/14/19 09:00 10/06/19 19:59 09/20/19 09:01 Insulin Aspart (NovoLOG) Q6HR SUBQ 09/14/19 06:00 10/07/19 00:00 09/19/19 12:15 Meropenem 1 gm/ Sodium Chloride 55 ml @ 110 mls/hr Q8HR IVPB 09/14/19 06:00 09/25/19 23:59 09/20/19 05:32 Nitroglycerin (Ntg) 0.4 mg Q5M PRN SL Prn Chest Pain 09/14/19 02:15 10/06/19 15:59 Ondansetron HCl (Zofran) 4 mg Q6H PRN IVP Nausea & Vomiting 09/14/19 04:00 10/06/19 15:59 Polyethylene Glycol (Miralax) 17 gm DAILYPRN PRN GT Constipation 09/14/19 18:15 10/06/19 15:59 Sodium Chloride 1,000 ml @ 75 mls/hr [id number] IV 09/14/19 02:15 10/13/19 11:14 09/20/19 04:59 Vancomycin HCl (Firvanq) 125 mg FOUR TIMES A DAY ORAL 09/19/19 13:00 10/03/19 23:59 09/20/19 08:48 Vancomycin HCl (Vanco rx to dose) 1 ea DAILY PRN MISC Per rx protocol 09/14/19 09:00 10/06/19 15:59 Vancomycin HCl 500 mg/Dextrose 110 ml @ 110 mls/hr Q12H IVPB 09/17/19 15:00 10/03/19 23:59 09/20/19 02:26 Sowmya Abbasi MD Sep 20, 2019 12:52
--- NOTE | 2019-09-20 14:54 | NUR ---
DISCHARGE SWALLOW/SPEECH THERAPY SUMMARY: PATIENT SEEN FOR DYSPHAGIA, SEE SWALLOW EVAL AND MOD BARIUM SWALLOW STUDY. GOALS FOR INTAKE NOT MET, STILL NEEDS NONORAL FEEDINGS. STAFF/FAMILY EDUCATED/TRAINED IN ORAL CARE AND ASP PRECAUTIONS FOR WHEN PEG FEEDINGS GIVEN. PLAN: F/UP WITH SNF ORIENTAL MEDICINE PRACTITIONER FOR DYSPHAGIA MANAGEMENT AND TX REPEAT MOD BARIUM SWALLOW STUDY OP IF INDICATED POST TRIAL TX AND PROGRESS NOTED.
--- NOTE | 2019-09-20 15:02 | NUR ---
NURSE NOTES:WOUND CARE FOLLOW-UP NOTES:Incision R scapula resolving . dry exudate noted . No odor or erythema noted (L)0.5cm x (W)1.5cm. Full thickness ucler L elbow with 40% slough at center of wound with surrounding pink epithelial. Periwound skin is dark without erythema or fluctuance. Hyperpigmentation noted to sacral area. No erythema or open wounds noted.Black discoloration without fluctuance or induration noted to R trochanteric. Non-tender when minimally palpated(L)4.8cm x (W)5cm RLE is contracted. Pt noted to have developed serous blister plantar aspect of R heel despite efforts to off-load heel and attempt to protect heel with Optifoam drsg.(L)5.5cm x (W04.5cm. Cavilon Skin Barrier Optifoam drsg applied. Additional heel foam cap placed within sock .Pillow placed behind R knee to off-load pressure but pt moans when attempting to off-load heel.L heel is boggy with non-blanching erythema(L)4.5cm x (W)6cm. Blood blister with surrounding erythema noted medially at latera/plantar L foot (L)0.5cm x (W)2cm.Pt has an APM/MYRNA Mattress overlay on his bed.Positioned with pillows on side with heels off-loaded. All wound Tx continued as ordered.
--- NOTE | 2019-09-20 16:27 | NUR ---
CASE MANAGEMENT:REVIEW 09/20/19 SI: PNA 99.0 111 26 124/84 96% ON VENTURI MASK 14L 55% IS: IVF NS @75ML/HR IV VANCOMYCIN Q48HRS VANCOMYCIN HCL PO QID IV MEROPENEM Q8HR NORVASC GT QD HEPARIN SQ Q12 NEURONTIN GT TID NOVOLOG SQ Q6HR : 4E MED SURG DCP: BARBARA YA
--- NOTE | 2019-09-20 17:05 | Infectious Diseases Prog Note ---
Assessment/Plan Assessment/Plan 79yo gentleman with PMH below presents from [facility] for hypoxia and report of cough. Pt was recently admitted at this hospital 08/15-08/22 for sepsis 2/2 R shoulder abscess. Pt was discharged on zosyn and vancomycin. Pt unable to provide history. Per [facility] records, they were concerned for pneumonia. Pt was started on levaquin/flagyl early August. Fever; SP Leukopenia, SP No lactic acidosis Pseudomonas PNA -09/18 CT chest: Combination of atelectasis and dense pneumonia involving the left lower lobe. Please correlate clinically. Additional patchy groundglass infiltrates in both upper lobes also present. Atherosclerotic disease. Acute hypoxic respiratory failure on nasal cannula supplement CXR: Pneumonia versus atelectasis at the left lung base. sputum cx: Pseudomonas 09/11 CXR: New right suprahilar and increasing left basilar infiltrates, since prior study of 5 days earlier 09/15 CXR: Increased left mid and lower lung patchy atelectasis and/or consolidation Unlikely UTI UA negative Persistent CoNS bacteremia, albeit diff species. 2/2 pressure ulcers? shoulder abscess? cervical spine prosthetic infection? R shoulder osteomyelitis? 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 Thickened mitral valve leaflets with normal excursion. Mitral annulus and aortic root calcification. Pulmonic valve not visualized. Normal tricuspid valve structure. 09/13 UE/LE duplex: negative for DVT 09/13 bcx: ngtd 09/14 BCx: NTD h/o Staph capitis(CoNS) bacteremia 08/15 08/16 BCx: NG h/o R shoulder abscess 09/18 CT shoulder: No evidence of abscess. 08/20 cx: Proteus, CoNS 09/13 CT shoulder: Since 08/22/2019, previously demonstrated right posterior shoulder superficial wound is largely closed. There is some residual gas and what appears to be scar tissue in the area. No definite abscess currently, although evaluation for such is limited in the absence of IV contrast. Multifocal bilateral pulmonary parenchymal infiltrates, presumably pneumonia, are noted. Extensive heterotopic new bone surrounding the right shoulder is again demonstrated. Correlate with clinical history. Evidence of prior cervical spine fusion surgery. MRSA screen negative HTN FTT Anemia CVA Aphasia G tube malfunction BPH DM Bedbound OA Dementia NH resident DNR Plan: Meropenem #08/07 and vanc # Cont PO Vancomycin 125mg qid #209/11 SP cefepime #5 f/u repeat bcx aspiration precaution, elevate HOB G tube care skin care at this point, concerning for infection of L knee prosthetic and/or neck prosthesis. once pneumonia improves, will obtain indium scan to evaluate previous cervical spine fusion surgery site and the R shoulder in the setting of persistent GPC bacteremia. if we obtain indium scan now, likely the lungs will light up. Thank you for this consult. [facility] will continue to follow the patient with you. Subjective Allergies: Coded Allergies: HYDROMORPHONE (Unverified Allergy, Unknown, 01/04/18) Subjective afebrile no leukocytosis Objective Vital Signs Last 24 Hour Vital Signs Date Time Temp Pulse Resp B/P (MAP) Pulse Ox O2 Delivery O2 Flow Rate FiO2 09/20/19 16:00 99.1 108 22 104/68 (80) 94 09/20/19 12:00 99.0 102 20 119/63 (81) 91 09/20/19 09:00 Nasal Cannula 4.0 09/20/19 08:45 108 128/90 09/20/19 08:40 99.0 111 26 128/90 (103) 96 09/20/19 08:00 99.0 111 26 124/84 (97) 96 09/20/19 04:00 98.9 108 20 127/87 (100) 95 09/20/19 00:00 99.6 105 21 126/78 (94) 95 09/19/19 23:00 Nasal Cannula 4.0 09/19/19 20:02 95 Nasal Cannula 2.0 28 09/19/19 20:00 97.6 105 19 143/88 (106) 95 Height (Feet): 5 Height (Inches): 11.00 Weight (Pounds): 165 Objective General Appearance: cachetic HEENT: normocephalic, atraumatic Respiratory/Chest: chest wall non-tender, normal breath sounds Cardiovascular: normal rate, regular rhythm Abdomen: normal bowel sounds, soft, non tender Genitourinary: normal external genitalia Extremities: no cyanosis Skin: no rash, no lesions Microbiology Date/Time Source Procedure Growth Status 09/18/19 17:00 Stool Clostridium difficile Toxin Assay - Final Complete Current Medications Medications (Trade) Dose Ordered Sig/Nelson Route PRN Reason Start Time Stop Time Status Last Admin Dose Admin Acetaminophen (Tylenol) 650 mg Q4H PRN GT Mild Pain/Temp > 100.5 09/14/19 02:45 10/06/19 18:44 09/19/19 09:58 Amlodipine Besylate (Norvasc) 5 mg DAILY GT 09/14/19 09:00 10/07/19 08:59 09/20/19 08:45 Dextrose (Dextrose 50%) 25 ml Q30M PRN IV Hypoglycemia 09/14/19 02:30 10/06/19 17:59 Dextrose (Dextrose 50%) 50 ml Q30M PRN IV Hypoglycemia 09/14/19 02:30 10/06/19 17:59 Gabapentin (Neurontin) 250 mg TID GT 09/14/19 09:00 10/06/19 19:59 09/20/19 13:22 Insulin Aspart (NovoLOG) Q6HR SUBQ 09/14/19 06:00 10/07/19 00:00 09/19/19 12:15 Meropenem 1 gm/ Sodium Chloride 55 ml @ 110 mls/hr Q8HR IVPB 09/14/19 06:00 09/25/19 23:59 09/20/19 13:22 Nitroglycerin (Ntg) 0.4 mg Q5M PRN SL Prn Chest Pain 09/14/19 02:15 10/06/19 15:59 Ondansetron HCl (Zofran) 4 mg Q6H PRN IVP Nausea & Vomiting 09/14/19 04:00 10/06/19 15:59 Polyethylene Glycol (Miralax) 17 gm DAILYPRN PRN GT Constipation 09/14/19 18:15 10/06/19 15:59 Sodium Chloride 1,000 ml @ 75 mls/hr [id number] IV 09/14/19 02:15 10/13/19 11:14 09/20/19 04:59 Vancomycin HCl (Firvanq) 125 mg FOUR TIMES A DAY ORAL 09/19/19 13:00 10/03/19 23:59 09/20/19 13:22 Vancomycin HCl (Vanco rx to dose) 1 ea DAILY PRN MISC Per rx protocol 09/14/19 09:00 10/06/19 15:59 Vancomycin HCl 500 mg/Dextrose 110 ml @ 110 mls/hr Q12H IVPB 09/17/19 15:00 10/03/19 23:59 09/20/19 15:20 Avril Zaragoza M.D. Sep 20, 2019 17:05
--- NOTE | 2019-09-20 19:00 | NUR ---
NURSE NOTES: Received a report from SERGIO Serrano. Pt is in stable condition. Sleeping comfortably. Uses nasal cannula 2l/min. GT feeding is running. HOB elevated. Benavidez catheter is draining. Bed on lowest position. Bad alarm is on. Call light within reach. Will continue to monitor.
--- NOTE | 2019-09-20 19:22 | NUR ---
HAND-OFF: Report given to Purnima HILL.
[2019-09-21] MEDS: Vancomycin 500mg/D5W 110ml IVPB SCH ×6 (03:00→15:00)
[2019-09-21 04:00] VITALS: BP 131/71
[2019-09-21 05:21] LABS: BASOPHILS % (AUTO) 0.9 % (0.0-2.0); HEMATOCRIT 29.4 % (42.0-52.0); HEMOGLOBIN 9.4 G/DL (14.2-18.0); LYMPHOCYTES % (AUTO) 16.6 % (20.0-45.0); MEAN CORPUSCULAR VOLUME 98 FL (80-99); MONOCYTES % (AUTO) 8.3 % (1.0-10.0); NEUTROPHILS % (AUTO) 71.1 % (45.0-75.0); PLATELET COUNT 572 K/UL (150-450); WHITE BLOOD COUNT 4.7 K/UL (4.8-10.8)
[2019-09-21] MEDS: NovoLOG Insulin Flexpen SUBQ SCH ×3 (06:00→18:00)
[2019-09-21 06:06] LABS: ALANINE AMINOTRANSFERASE 21 U/L (12-78); ALBUMIN 1.9 G/DL (3.4-5.0); ALBUMIN/GLOBULIN RATIO 0.3 (1.0-2.7); ALKALINE PHOSPHATASE 85 U/L (46-116); ANION GAP 8 mmol/L (5-15); ASPARTATE AMINO TRANSFERASE 24 U/L (15-37); BILIRUBIN,TOTAL 0.3 MG/DL (0.2-1.0); BLOOD UREA NITROGEN 16 mg/dL (7-18); CALCIUM 8.7 MG/DL (8.5-10.1); CARBON DIOXIDE 28 MMOL/L (21-32); CHLORIDE 102 MMOL/L (98-107); CREATININE 0.5 MG/DL (0.55-1.30); PHOSPHORUS 2.8 MG/DL (2.5-4.9); POTASSIUM 4.3 MMOL/L (3.5-5.1); SODIUM 138 MMOL/L (136-145)
[2019-09-21] MEDS: Meropenem 1 GM in NS 55 ML IVPB SCH ×3 (06:12→21:09)
--- NOTE | 2019-09-21 07:10 | NUR ---
HAND-OFF: Report given to SERGIO Ramírez.
--- NOTE | 2019-09-21 07:15 | NUR ---
NURSE NOTES: Received patient in bed awake. With O2 via NC on. No SOB or acute distress. IV line intact and patent. FC intact, draining yellow colored urine. Wound dressings intact. HOB elevated. Bed locked in lowest position. Call light within reach. Will continue plan of care.
[2019-09-21 08:00] VITALS: BP 111/56
[2019-09-21] MEDS: Vancomycin oral 125mg/2.5ml ORAL SCH ×4 (08:39→21:08)
[2019-09-21] MEDS: Gabapentin 300 MG/6 ML Soln GT SCH ×3 (08:39→17:09)
[2019-09-21 12:00] VITALS: BP 126/65
--- NOTE | 2019-09-21 13:12 | Pulmonology Progress Note ---
Assessment/Plan Problems: (1) C. difficile colitis (2) Healthcare-associated pneumonia (3) At high risk for aspiration (4) History of CVA (cerebrovascular accident) (5) Advanced dementia (6) G tube feedings (7) HTN (hypertension) Assessment/Plan C-diff positive now afebrile yesterday still on face mask CT showed bilateral infiltrate, LLL consolidation Keep left chest elevated CT of shoulder didn't show any abscess, but showed extensive lung infiltrate adjust abx, on meropenem and vancomycin respiratory treatment titrate fio2 to sat of 92% aspiration precaution dvt prophylaxis blood cultures are persistently positive, with different strains of coag negative staff Subjective ROS Limited/Unobtainable: No Constitutional: Reports: no symptoms HEENT: Repors: no symptoms Respiratory: Reports: no symptoms Allergies: Coded Allergies: HYDROMORPHONE (Unverified Allergy, Unknown, 01/04/18) Objective Last 24 Hour Vital Signs Date Time Temp Pulse Resp B/P (MAP) Pulse Ox O2 Delivery O2 Flow Rate FiO2 09/21/19 12:00 99.6 109 18 126/65 (85) 100 09/21/19 09:00 Nasal Cannula 4.0 09/21/19 08:39 106 111/56 09/21/19 08:00 98.1 106 19 111/56 (74) 98 09/21/19 04:00 98.1 113 19 131/71 (91) 94 09/20/19 23:39 98.3 110 18 132/68 (89) 93 09/20/19 21:00 Nasal Cannula 4.0 09/20/19 20:00 98.6 105 18 108/55 (72) 98 09/20/19 19:27 96 Nasal Cannula 2.0 28 09/20/19 16:00 99.1 108 22 104/68 (80) 94 Intake and Output 09/20/19 09/21/19 19:00 07:00 Intake Total 850 ml 1420 ml Output Total 1100 ml 1000 ml Balance -250 ml 420 ml Intake Free Water 250 ml 180 ml IV Total 690 ml Tube Feeding 600 ml 550 ml Output Urine Total 1100 ml 1000 ml # Bowel Movements 1 Objective General Appearance: cachetic HEENT: normocephalic, atraumatic Respiratory/Chest: chest wall non-tender, normal breath sounds Cardiovascular: normal rate, regular rhythm Abdomen: normal bowel sounds, soft, non tender Genitourinary: normal external genitalia Extremities: no cyanosis Skin: no rash, no lesions Microbiology Date/Time Source Procedure Growth Status 09/18/19 17:00 Stool Clostridium difficile Toxin Assay - Final Complete Laboratory Tests 09/21/19 04:51: White Blood Count 4.7L, Red Blood Count 3.00L, Hemoglobin 9.4L, Hematocrit 29.4L , Mean Corpuscular Volume 98, Mean Corpuscular Hemoglobin 31.3H, Mean Corpuscular Hemoglobin Concent 31.9L, Red Cell Distribution Width 14.0, Platelet Count 572H, Mean Platelet Volume 6.5, Neutrophils (%) (Auto) 71.1, Lymphocytes (%) (Auto) 16.6L, Monocytes (%) (Auto) 8.3, Eosinophils (%) (Auto) 3.0, Basophils (%) (Auto) 0.9, Erythrocyte Sedimentation Rate 116H, Sodium Level 138, Potassium Level 4.3, Chloride Level 102, Carbon Dioxide Level 28, Anion Gap 8, Blood Urea Nitrogen 16, Creatinine 0.5L, Estimat Glomerular Filtration Rate , Glucose Level 138H, Calcium Level 8.7, Phosphorus Level 2.8, Magnesium Level 2.0, Total Bilirubin 0.3, Aspartate Amino Transf (AST/SGOT) 24, Alanine Aminotransferase (ALT/SGPT) 21, Alkaline Phosphatase 85, C-Reactive Protein, Quantitative 6.3H, Total Protein 8.7H, Albumin 1.9L, Globulin 6.8, Albumin/Globulin Ratio 0.3L Current Medications Medications (Trade) Dose Ordered Sig/Nelson Route PRN Reason Start Time Stop Time Status Last Admin Dose Admin Acetaminophen (Tylenol) 650 mg Q4H PRN GT Mild Pain/Temp > 100.5 09/14/19 02:45 10/06/19 18:44 09/19/19 09:58 Amlodipine Besylate (Norvasc) 5 mg DAILY GT 09/14/19 09:00 10/07/19 08:59 09/21/19 08:39 Dextrose (Dextrose 50%) 25 ml Q30M PRN IV Hypoglycemia 09/14/19 02:30 10/06/19 17:59 Dextrose (Dextrose 50%) 50 ml Q30M PRN IV Hypoglycemia 09/14/19 02:30 10/06/19 17:59 Gabapentin (Neurontin) 250 mg TID GT 09/14/19 09:00 10/06/19 19:59 09/21/19 12:52 Insulin Aspart (NovoLOG) Q6HR SUBQ 09/14/19 06:00 10/07/19 00:00 09/21/19 06:00 Meropenem 1 gm/ Sodium Chloride 55 ml @ 110 mls/hr Q8HR IVPB 09/14/19 06:00 09/25/19 23:59 09/21/19 12:55 Nitroglycerin (Ntg) 0.4 mg Q5M PRN SL Prn Chest Pain 09/14/19 02:15 10/06/19 15:59 Ondansetron HCl (Zofran) 4 mg Q6H PRN IVP Nausea & Vomiting 09/14/19 04:00 10/06/19 15:59 Polyethylene Glycol (Miralax) 17 gm DAILYPRN PRN GT Constipation 09/14/19 18:15 10/06/19 15:59 Sodium Chloride 1,000 ml @ 75 mls/hr [id number] IV 09/14/19 02:15 10/13/19 11:14 09/21/19 08:00 Vancomycin HCl (Firvanq) 125 mg FOUR TIMES A DAY ORAL 09/19/19 13:00 10/03/19 23:59 09/21/19 12:52 Vancomycin HCl (Vanco rx to dose) 1 ea DAILY PRN MISC Per rx protocol 09/14/19 09:00 10/06/19 15:59 Vancomycin HCl 500 mg/Dextrose 110 ml @ 110 mls/hr Q12H IVPB 09/17/19 15:00 10/03/19 23:59 09/21/19 03:00 Sowmya Abbasi MD Sep 21, 2019 13:12
--- NOTE | 2019-09-21 15:00 | NUR ---
NURSE NOTES: Patient kept clean and dry. Gtube flushed and kept patent.
[2019-09-21 16:00] VITALS: BP 130/70
--- NOTE | 2019-09-21 19:02 | NUR ---
HAND-OFF: Report given to Arabella.
[2019-09-21 20:00] VITALS: BP 123/67
[2019-09-22] VITALS: BP 127/64
[2019-09-22] MEDS: Vancomycin 500mg/D5W 110ml IVPB SCH ×4 (03:15→14:14)
[2019-09-22 03:52] VITALS: BP 126/70
[2019-09-22 05:35] LABS: BASOPHILS % (AUTO) 1.2 % (0.0-2.0); HEMATOCRIT 30.2 % (42.0-52.0); HEMOGLOBIN 9.7 G/DL (14.2-18.0); LYMPHOCYTES % (AUTO) 18.3 % (20.0-45.0); MEAN CORPUSCULAR VOLUME 98 FL (80-99); MONOCYTES % (AUTO) 9.1 % (1.0-10.0); NEUTROPHILS % (AUTO) 68.4 % (45.0-75.0); PLATELET COUNT 600 K/UL (150-450); RED BLOOD COUNT 3.07 M/UL (4.70-6.10); RED CELL DISTRIBUTION WIDTH 14.4 % (11.6-14.8); WHITE BLOOD COUNT 4.9 K/UL (4.8-10.8)
[2019-09-22] MEDS: Meropenem 1 GM in NS 55 ML IVPB SCH ×3 (05:41→21:04)
[2019-09-22] MEDS: NovoLOG Insulin Flexpen SUBQ SCH ×4 (05:48→17:11)
[2019-09-22 07:07] LABS: ALANINE AMINOTRANSFERASE 21 U/L (12-78); ALBUMIN 1.9 G/DL (3.4-5.0); ALBUMIN/GLOBULIN RATIO 0.3 (1.0-2.7); ALKALINE PHOSPHATASE 87 U/L (46-116); ANION GAP 8 mmol/L (5-15); ASPARTATE AMINO TRANSFERASE 25 U/L (15-37); BILIRUBIN,TOTAL 0.4 MG/DL (0.2-1.0); BLOOD UREA NITROGEN 16 mg/dL (7-18); CALCIUM 8.6 MG/DL (8.5-10.1); CARBON DIOXIDE 28 MMOL/L (21-32); CHLORIDE 101 MMOL/L (98-107); CREATININE 0.6 MG/DL (0.55-1.30); PHOSPHORUS 2.6 MG/DL (2.5-4.9); POTASSIUM 4.5 MMOL/L (3.5-5.1); SODIUM 136 MMOL/L (136-145)
--- NOTE | 2019-09-22 07:32 | NUR ---
HAND-OFF: Report given to SERGIO Smith.
--- NOTE | 2019-09-22 07:34 | NUR ---
NURSE NOTES: Patient awake, alert x1, non verbal; on Nasal Cannula 3 Liters, no sing of distress and shortness of breath; no sing of chest pain; IV Left-Hand 24G NS 75cc; Glucerna 1.5 running 50cc, no residual; Benavidez in place drains yellow urine; side rails up x2, breaks engaged, bed at lowest position; patient contracted on the upper extremity. will keep monitoring.
[2019-09-22 08:00] VITALS: BP 141/77
[2019-09-22] MEDS: Vancomycin oral 125mg/2.5ml ORAL SCH ×4 (08:21→20:32)
[2019-09-22] MEDS: Gabapentin 300 MG/6 ML Soln GT SCH ×3 (08:21→17:09)
--- NOTE | 2019-09-22 11:05 | NUR ---
CASE MANAGEMENT:REVIEW 09/22/19 SI: PNA 98.8 103 20 141/77 99% ON 4L NC H/H 9./30.2 BG 131 IS: IVF NS @75ML/HR IV VANCOMYCIN Q12HRS VANCOMYCIN HCL PO QID IV MEROPENEM Q8HR NORVASC GT QD HEPARIN SQ Q12 NEURONTIN GT TID NOVOLOG SQ Q6HR : 4E MED SURG DCP: [facility] PLAN: CONTROL FEVER CONTROL DIARRHEA
--- NOTE | 2019-09-22 11:20 | Infectious Diseases Prog Note ---
Assessment/Plan Assessment/Plan 79yo gentleman with PMH below [facility] and report of cough. Pt was recently admitted at this hospital 08/15-08/22 for sepsis 2/2 R shoulder abscess. Pt was discharged on zosyn and vancomycin. Pt unable to provide history. [facility]. Pt was started on levaquin/flagyl early August. Fever; low grade Leukopenia, SP No lactic acidosis Pseudomonas PNA -09/18 CT chest: Combination of atelectasis and dense pneumonia involving the left lower lobe. Please correlate clinically. Additional patchy groundglass infiltrates in both upper lobes also present. Atherosclerotic disease. Acute hypoxic respiratory failure on nasal cannula supplement CXR: Pneumonia versus atelectasis at the left lung base. sputum cx: Pseudomonas 09/11 CXR: New right suprahilar and increasing left basilar infiltrates, since prior study of 5 days earlier 09/15 CXR: Increased left mid and lower lung patchy atelectasis and/or consolidation Unlikely UTI UA negative Persistent CoNS bacteremia, albeit diff species. 2/2 pressure ulcers? shoulder abscess? cervical spine prosthetic infection? R shoulder osteomyelitis? 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 Thickened mitral valve leaflets with normal excursion. Mitral annulus and aortic root calcification. Pulmonic valve not visualized. Normal tricuspid valve structure. 09/13 UE/LE duplex: negative for DVT 09/13 bcx: ngtd 09/14 BCx: NTD h/o Staph capitis(CoNS) bacteremia 08/15 08/16 BCx: NG h/o R shoulder abscess 09/18 CT shoulder: No evidence of abscess. 08/20 cx: Proteus, CoNS 09/13 CT shoulder: Since 08/22/2019, previously demonstrated right posterior shoulder superficial wound is largely closed. There is some residual gas and what appears to be scar tissue in the area. No definite abscess currently, although evaluation for such is limited in the absence of IV contrast. Multifocal bilateral pulmonary parenchymal infiltrates, presumably pneumonia, are noted. Extensive heterotopic new bone surrounding the right shoulder is again demonstrated. Correlate with clinical history. Evidence of prior cervical spine fusion surgery. MRSA screen negative HTN FTT Anemia CVA Aphasia G tube malfunction BPH DM Bedbound OA Dementia NH resident DNR Plan: Meropenem #10/07 and vanc # Cont PO Vancomycin 125mg qid #4/09/11 SP cefepime #5 f/u repeat bcx aspiration precaution, elevate HOB G tube care skin care at this point, concerning for infection of L knee prosthetic and/or neck prosthesis. once pneumonia improves, will obtain indium scan to evaluate previous cervical spine fusion surgery site and the R shoulder in the setting of persistent GPC bacteremia. if we obtain indium scan now, likely the lungs will light up. Thank you for this consult. [facility] will continue to follow the patient with you. Subjective Allergies: Coded Allergies: HYDROMORPHONE (Unverified Allergy, Unknown, 01/04/18) Subjective Tm 100.2 no leukocytosis Objective Vital Signs Last 24 Hour Vital Signs Date Time Temp Pulse Resp B/P (MAP) Pulse Ox O2 Delivery O2 Flow Rate FiO2 09/22/19 09:00 Nasal Cannula 4.0 09/22/19 08:21 103 141/77 09/22/19 08:00 98.8 103 20 141/77 (98) 99 09/22/19 03:52 98.9 107 18 126/70 (88) 97 09/22/19 00:00 98.8 104 18 127/64 (85) 98 09/21/19 21:00 Nasal Cannula 4.0 09/21/19 20:40 96 Nasal Cannula 2.0 28 09/21/19 20:00 99.2 111 17 123/67 (85) 98 09/21/19 16:00 100.2 102 19 130/70 (90) 100 09/21/19 12:00 99.6 109 18 126/65 (85) 100 Height (Feet): 5 Height (Inches): 11.00 Weight (Pounds): 165 Objective General Appearance: cachetic HEENT: normocephalic, atraumatic Respiratory/Chest: chest wall non-tender, normal breath sounds Cardiovascular: normal rate, regular rhythm Abdomen: normal bowel sounds, soft, non tender Genitourinary: normal external genitalia Extremities: no cyanosis Skin: no rash, no lesions Laboratory Tests Test 09/22/19 05:18 White Blood Count 4.9 K/UL (4.8-10.8) Red Blood Count 3.07 M/UL (4.70-6.10) L Hemoglobin 9.7 G/DL (14.2-18.0) L Hematocrit 30.2 % (42.0-52.0) L Mean Corpuscular Volume 98 FL (80-99) Mean Corpuscular Hemoglobin 31.5 PG (27.0-31.0) H Mean Corpuscular Hemoglobin Concent 32.1 G/DL (32.0-36.0) Red Cell Distribution Width 14.4 % (11.6-14.8) Platelet Count 600 K/UL (150-450) H Mean Platelet Volume 6.2 FL (6.5-10.1) L Neutrophils (%) (Auto) 68.4 % (45.0-75.0) Lymphocytes (%) (Auto) 18.3 % (20.0-45.0) L Monocytes (%) (Auto) 9.1 % (1.0-10.0) Eosinophils (%) (Auto) 3.0 % (0.0-3.0) Basophils (%) (Auto) 1.2 % (0.0-2.0) Erythrocyte Sedimentation Rate 114 MM/HR (0-20) H Sodium Level 136 MMOL/L (136-145) Potassium Level 4.5 MMOL/L (3.5-5.1) Chloride Level 101 MMOL/L (98-107) Carbon Dioxide Level 28 MMOL/L (21-32) Anion Gap 8 mmol/L (5-15) Blood Urea Nitrogen 16 mg/dL (7-18) Creatinine 0.6 MG/DL (0.55-1.30) Estimat Glomerular Filtration Rate mL/min (>60) Glucose Level 131 MG/DL (74-106) H Calcium Level 8.6 MG/DL (8.5-10.1) Phosphorus Level 2.6 MG/DL (2.5-4.9) Magnesium Level 1.8 MG/DL (1.8-2.4) Total Bilirubin 0.4 MG/DL (0.2-1.0) Aspartate Amino Transf (AST/SGOT) 25 U/L (15-37) Alanine Aminotransferase (ALT/SGPT) 21 U/L (12-78) Alkaline Phosphatase 87 U/L (46-116) C-Reactive Protein, Quantitative 4.1 mg/dL (0.00-0.90) H Total Protein 8.9 G/DL (6.4-8.2) H Albumin 1.9 G/DL (3.4-5.0) L Globulin 7.0 g/dL Albumin/Globulin Ratio 0.3 (1.0-2.7) L Current Medications Medications (Trade) Dose Ordered Sig/Nelson Route PRN Reason Start Time Stop Time Status Last Admin Dose Admin Acetaminophen (Tylenol) 650 mg Q4H PRN GT Mild Pain/Temp > 100.5 09/14/19 02:45 10/06/19 18:44 09/19/19 09:58 Amlodipine Besylate (Norvasc) 5 mg DAILY GT 09/14/19 09:00 10/07/19 08:59 09/22/19 08:21 Dextrose (Dextrose 50%) 25 ml Q30M PRN IV Hypoglycemia 09/14/19 02:30 10/06/19 17:59 Dextrose (Dextrose 50%) 50 ml Q30M PRN IV Hypoglycemia 09/14/19 02:30 10/06/19 17:59 Gabapentin (Neurontin) 250 mg TID GT 09/14/19 09:00 10/06/19 19:59 09/22/19 08:21 Insulin Aspart (NovoLOG) Q6HR SUBQ 09/14/19 06:00 10/07/19 00:00 09/22/19 05:48 Meropenem 1 gm/ Sodium Chloride 55 ml @ 110 mls/hr Q8HR IVPB 09/14/19 06:00 09/25/19 23:59 09/22/19 05:41 Nitroglycerin (Ntg) 0.4 mg Q5M PRN SL Prn Chest Pain 09/14/19 02:15 10/06/19 15:59 Ondansetron HCl (Zofran) 4 mg Q6H PRN IVP Nausea & Vomiting 09/14/19 04:00 10/06/19 15:59 Polyethylene Glycol (Miralax) 17 gm DAILYPRN PRN GT Constipation 09/14/19 18:15 10/06/19 15:59 Sodium Chloride 1,000 ml @ 75 mls/hr [id number] IV 09/14/19 02:15 10/13/19 11:14 09/22/19 10:41 Vancomycin HCl (Firvanq) 125 mg FOUR TIMES A DAY ORAL 09/19/19 13:00 10/03/19 23:59 09/22/19 08:21 Vancomycin HCl (Vanco rx to dose) 1 ea DAILY PRN MISC Per rx protocol 09/14/19 09:00 10/06/19 15:59 Vancomycin HCl 500 mg/Dextrose 110 ml @ 110 mls/hr Q12H IVPB 09/17/19 15:00 10/03/19 23:59 09/22/19 03:15 Avril Zaragoza M.D. Sep 22, 2019 11:20
[2019-09-22 12:00] VITALS: BP 139/77
--- NOTE | 2019-09-22 12:07 | NUR ---
RD ASSESSMENT & RECOMMENDATIONS SEE CARE ACTIVITY FOR COMPLETE ASSESSMENT DAILY ESTIMATED NEEDS: Needs based on cardiac, wound healing, DM/ 70kg 25-30 kcals/kg 0925-2860 total kcals 1.25-1.5 g protein/kg 87-105 g total protein 25-30 mL/kg 5544-5833 total fluid mLs NUTRITION DIAGNOSIS: * Swallowing difficulty R/T dysphagia as evidenced by pt PEG dependent. * Increased Kcal and pro needs r/t wound healing as evidenced by pt admitted w/ full thickness wounds at R scapula and L elbow, non-blanching erythema at rt heel. * Altered nutrition related lab values R/T h/o DM as evidenced by elev POC glu (106-201-> now improved), on NISS. CURRENT TF:Glucerna 1.5@ 50mL/hr x 24 hrs. ENTERAL NUTRITION RECOMMENDATIONS: Glucerna 1.5 @ 50ml/hr x 24 hrs to provide 1200ml, 1800kcal, 99g prot, 911ml free water * Maintain Glucerna 1.5 @ 50ml/hr x24hrs. * HOB over 30 degrees * Water flush of 240ml q 6hrs ADDITIONAL RECOMMENDATIONS: * Calibrated bedscale wt for accurate CBW now day 16 adm, rec to recalibrate bed scale * Check A1C for eval of glycemic control: h/o DM * Monitor lytes, replete as needed (low phos and mag) * Wound healing: add Vit C 250mg BID + ZnSO4 220mg QD x 10 days add Phillip 1pkt BID .
--- NOTE | 2019-09-22 12:29 | Pulmonology Progress Note ---
Assessment/Plan Problems: (1) C. difficile colitis (2) Healthcare-associated pneumonia (3) At high risk for aspiration (4) History of CVA (cerebrovascular accident) (5) Advanced dementia (6) G tube feedings (7) HTN (hypertension) Assessment/Plan C-diff positive now afebrile yesterday still on face mask CT showed bilateral infiltrate, LLL consolidation Keep left chest elevated CT of shoulder didn't show any abscess, but showed extensive lung infiltrate adjust abx, on meropenem and vancomycin respiratory treatment titrate fio2 to sat of 92% aspiration precaution dvt prophylaxis blood cultures are persistently positive, with different strains of coag negative staff Subjective ROS Limited/Unobtainable: No Constitutional: Reports: no symptoms HEENT: Repors: no symptoms Respiratory: Reports: no symptoms Allergies: Coded Allergies: HYDROMORPHONE (Unverified Allergy, Unknown, 01/04/18) Objective Last 24 Hour Vital Signs Date Time Temp Pulse Resp B/P (MAP) Pulse Ox O2 Delivery O2 Flow Rate FiO2 09/22/19 12:00 98.9 99 20 139/77 (97) 99 09/22/19 09:00 Nasal Cannula 4.0 09/22/19 08:21 103 141/77 09/22/19 08:00 98.8 103 20 141/77 (98) 99 09/22/19 03:52 98.9 107 18 126/70 (88) 97 09/22/19 00:00 98.8 104 18 127/64 (85) 98 09/21/19 21:00 Nasal Cannula 4.0 09/21/19 20:40 96 Nasal Cannula 2.0 28 09/21/19 20:00 99.2 111 17 123/67 (85) 98 09/21/19 16:00 100.2 102 19 130/70 (90) 100 Intake and Output 09/21/19 09/22/19 19:00 07:00 Intake Total 1090 ml 1685 ml Output Total 900 ml Balance 1090 ml 785 ml Intake Free Water 240 ml IV Total 990 ml 895 ml Tube Feeding 100 ml 550 ml Output Urine Total 900 ml # Voids 1 # Bowel Movements 1 Objective General Appearance: cachetic HEENT: normocephalic, atraumatic Respiratory/Chest: chest wall non-tender, normal breath sounds Cardiovascular: normal rate, regular rhythm Abdomen: normal bowel sounds, soft, non tender Genitourinary: normal external genitalia Extremities: no cyanosis Skin: no rash, no lesions Laboratory Tests 09/22/19 05:18: White Blood Count 4.9, Red Blood Count 3.07L, Hemoglobin 9.7L, Hematocrit 30.2L , Mean Corpuscular Volume 98, Mean Corpuscular Hemoglobin 31.5H, Mean Corpuscular Hemoglobin Concent 32.1, Red Cell Distribution Width 14.4, Platelet Count 600H, Mean Platelet Volume 6.2L, Neutrophils (%) (Auto) 68.4, Lymphocytes (%) (Auto) 18.3L, Monocytes (%) (Auto) 9.1, Eosinophils (%) (Auto) 3.0, Basophils (%) (Auto) 1.2, Erythrocyte Sedimentation Rate 114H, Sodium Level 136 , Potassium Level 4.5, Chloride Level 101, Carbon Dioxide Level 28, Anion Gap 8 , Blood Urea Nitrogen 16, Creatinine 0.6, Estimat Glomerular Filtration Rate , Glucose Level 131H, Calcium Level 8.6, Phosphorus Level 2.6, Magnesium Level 1.8 , Total Bilirubin 0.4, Aspartate Amino Transf (AST/SGOT) 25, Alanine Aminotransferase (ALT/SGPT) 21, Alkaline Phosphatase 87, C-Reactive Protein, Quantitative 4.1H, Total Protein 8.9H, Albumin 1.9L, Globulin 7.0, Albumin/ Globulin Ratio 0.3L Current Medications Medications (Trade) Dose Ordered Sig/Nelson Route PRN Reason Start Time Stop Time Status Last Admin Dose Admin Acetaminophen (Tylenol) 650 mg Q4H PRN GT Mild Pain/Temp > 100.5 09/14/19 02:45 10/06/19 18:44 09/19/19 09:58 Amlodipine Besylate (Norvasc) 5 mg DAILY GT 09/14/19 09:00 10/07/19 08:59 09/22/19 08:21 Dextrose (Dextrose 50%) 25 ml Q30M PRN IV Hypoglycemia 09/14/19 02:30 10/06/19 17:59 Dextrose (Dextrose 50%) 50 ml Q30M PRN IV Hypoglycemia 09/14/19 02:30 10/06/19 17:59 Gabapentin (Neurontin) 250 mg TID GT 09/14/19 09:00 10/06/19 19:59 09/22/19 08:21 Insulin Aspart (NovoLOG) Q6HR SUBQ 09/14/19 06:00 10/07/19 00:00 09/22/19 05:48 Meropenem 1 gm/ Sodium Chloride 55 ml @ 110 mls/hr Q8HR IVPB 09/14/19 06:00 09/25/19 23:59 09/22/19 05:41 Nitroglycerin (Ntg) 0.4 mg Q5M PRN SL Prn Chest Pain 09/14/19 02:15 10/06/19 15:59 Ondansetron HCl (Zofran) 4 mg Q6H PRN IVP Nausea & Vomiting 09/14/19 04:00 10/06/19 15:59 Polyethylene Glycol (Miralax) 17 gm DAILYPRN PRN GT Constipation 09/14/19 18:15 10/06/19 15:59 Sodium Chloride 1,000 ml @ 75 mls/hr [id number] IV 09/14/19 02:15 10/13/19 11:14 09/22/19 10:41 Vancomycin HCl (Firvanq) 125 mg FOUR TIMES A DAY ORAL 09/19/19 13:00 10/03/19 23:59 09/22/19 08:21 Vancomycin HCl (Vanco rx to dose) 1 ea DAILY PRN MISC Per rx protocol 09/14/19 09:00 10/06/19 15:59 Vancomycin HCl 500 mg/Dextrose 110 ml @ 110 mls/hr Q12H IVPB 09/17/19 15:00 10/03/19 23:59 09/22/19 03:15 Sowmya Abbasi MD Sep 22, 2019 12:29
[2019-09-22 16:00] VITALS: BP 153/75
--- NOTE | 2019-09-22 19:35 | NUR ---
HAND-OFF: Report given to SERGIO Montez.
--- NOTE | 2019-09-22 19:55 | NUR ---
NURSE NOTES: Received patient awake in bed, no s/s of acute distress. Patient cleaned and linen partially changed. Iv access intact running IVF maintenance. Benavidez patent, draining yellow urine. Bed low and locked, p200 mattress.
[2019-09-22 20:00] VITALS: BP 143/71
[2019-09-23] VITALS: BP 126/60
[2019-09-23] MEDS: Vancomycin 500mg/D5W 110ml IVPB SCH ×2 (02:39)
[2019-09-23 04:00] VITALS: BP 145/70
[2019-09-23] MEDS: Meropenem 1 GM in NS 55 ML IVPB SCH ×3 (05:41→21:03)
[2019-09-23] MEDS: NovoLOG Insulin Flexpen SUBQ SCH ×5 (06:00→23:30)
--- NOTE | 2019-09-23 07:00 | NUR ---
NURSE NOTES: HANDOFF RECEIVED FROM SERGIO GOLD. PATIENT RECEIVED AWAKE BUT NOT VERBAL, PATIENT NOT EXHIBITING ANY SIGNS OF DISTRESS. BED IN THE LOW AND LOCKED POSITION WITH CALL LIGHT WITHIN REACH. WILL CONTINUE TO MONITOR PATIENT.
[2019-09-23 08:00] VITALS: BP 140/85
[2019-09-23] MEDS: Gabapentin 300 MG/6 ML Soln GT SCH ×3 (09:40→17:21)
--- NOTE | 2019-09-23 09:40 | NUR ---
NURSE NOTES: NOTICED IV SITE NO LONGER IN PLACE. ATTEMPTED TO GAIN IV ACCESS WITH VEIN FINDER BUT CANNOT GAIN ACCESS, PATIENT IS NOTORIOUSLY DIFFICULT STICK. WILL HAVE ANOTHER NURSE ATTEMPT TO GET IV ACCESS.
[2019-09-23] MEDS: Vancomycin oral 125mg/2.5ml ORAL SCH ×4 (09:41→20:29)
[2019-09-23] MEDS: Acetaminophen 650mg/20.3ml GT PRN (09:43)
--- NOTE | 2019-09-23 10:24 | Pulmonology Progress Note ---
Assessment/Plan Assessment/Plan ASSESSMENT acute hypoxemic respiratory failure -resolved HCAP with Pseudomonas bacteremia with SCON-, persistent C dif positive Hx of R shoulder abscess aspiration risk functional quadriplegia dysphagia, , feeding by G tube severe protein calorie malnutrition DM HTN CAD with hx of [place] PLAN OF CARE [place] floor stool + C dif, SCX+ Pseudomonas, persistent CONS bacteremia abx as per ID recs contact isolation ECHO with pEF, no evidence of vegetation last BCX NGTD CT of R shoulder - no evidence of abscess O2 titrate, HHN fup with CXR asp precautions, GT feeding swallow eval noted, recommended continue with nonoral feeding 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 offloading , continue wound care no other surgical intervention necessary at this time supportive care bowel regimen DNR/DNI status case discussed and evaluated by supervising physician Subjective Allergies: Coded Allergies: HYDROMORPHONE (Unverified Allergy, Unknown, 01/04/18) Subjective afebrile, on O2 via NC, pulse ox stable no signs of resp distress remains tachycardic intermittently Objective Last 24 Hour Vital Signs Date Time Temp Pulse Resp B/P (MAP) Pulse Ox O2 Delivery O2 Flow Rate FiO2 09/23/19 09:41 113 140/85 09/23/19 08:00 98.7 113 22 140/85 (103) 96 09/23/19 04:00 98.7 101 22 145/70 (95) 98 09/23/19 00:00 98.6 100 21 126/60 (82) 98 09/22/19 22:03 Nasal Cannula 4.0 09/22/19 20:00 98.4 106 22 143/71 (95) 98 09/22/19 16:00 98.6 103 18 153/75 (101) 98 09/22/19 12:00 98.9 99 20 139/77 (97) 99 Intake and Output 09/22/19 09/23/19 19:00 07:00 Intake Total 1745 ml 1135 ml Balance 1745 ml 1135 ml Intake Free Water 250 ml 160 ml IV Total 895 ml 525 ml Tube Feeding 600 ml 450 ml Objective General Appearance: bedbound, poorly responsive AA male in NAD HEENT: normocephalic, atraumatic, anicteric Respiratory/Chest: no respiratory distress, no accessory muscle use, few isolated rhonchi Cardiovascular: tachycardia Abdomen: normal bowel sounds, soft, non tender, G tube Extremities: no edema Neurologic/Psychiatric: abnormal gait - bedridden , contracted, poorly responsive Musculoskeletal: atrophy Current Medications Medications (Trade) Dose Ordered Sig/Nelson Route PRN Reason Start Time Stop Time Status Last Admin Dose Admin Acetaminophen (Tylenol) 650 mg Q4H PRN GT Mild Pain/Temp > 100.5 09/14/19 02:45 10/06/19 18:44 09/23/19 09:43 Amlodipine Besylate (Norvasc) 5 mg DAILY GT 09/14/19 09:00 10/07/19 08:59 09/23/19 09:41 Dextrose (Dextrose 50%) 25 ml Q30M PRN IV Hypoglycemia 09/14/19 02:30 10/06/19 17:59 Dextrose (Dextrose 50%) 50 ml Q30M PRN IV Hypoglycemia 09/14/19 02:30 10/06/19 17:59 Gabapentin (Neurontin) 250 mg TID GT 09/14/19 09:00 10/06/19 19:59 09/23/19 09:40 Insulin Aspart (NovoLOG) Q6HR SUBQ 09/14/19 06:00 10/07/19 00:00 09/22/19 17:11 Meropenem 1 gm/ Sodium Chloride 55 ml @ 110 mls/hr Q8HR IVPB 09/14/19 06:00 09/25/19 23:59 09/23/19 05:41 Nitroglycerin (Ntg) 0.4 mg Q5M PRN SL Prn Chest Pain 09/14/19 02:15 10/06/19 15:59 Ondansetron HCl (Zofran) 4 mg Q6H PRN IVP Nausea & Vomiting 09/14/19 04:00 10/06/19 15:59 Polyethylene Glycol (Miralax) 17 gm DAILYPRN PRN GT Constipation 09/14/19 18:15 10/06/19 15:59 Sodium Chloride 1,000 ml @ 75 mls/hr [id number] IV 09/14/19 02:15 10/13/19 11:14 09/23/19 00:09 Vancomycin HCl (Firvanq) 125 mg FOUR TIMES A DAY ORAL 09/19/19 13:00 10/03/19 23:59 09/23/19 09:41 Vancomycin HCl (Vanco rx to dose) 1 ea DAILY PRN MISC Per rx protocol 09/14/19 09:00 10/06/19 15:59 Vancomycin HCl 500 mg/Dextrose 110 ml @ 110 mls/hr Q12H IVPB 09/17/19 15:00 10/03/19 23:59 09/23/19 02:39 Tiera Pat NP Sep 23, 2019 10:24
[2019-09-23 12:00] VITALS: BP 135/80
--- NOTE | 2019-09-23 13:28 | NUR ---
NURSE NOTES: STILL CANNOT GET IV ACCESS FOR PATIENT. NOTIFIED PRIMARY MD MARCUM AND DR PRESTON, ID DOCTOR PATIENT HAS IV ANTIBIOTICS ORDERED.
[2019-09-23] MEDS ORDERED: Lidocaine 1% Plain 30 ml INJ PRN (14:15)
[2019-09-23] MEDS ORDERED: Heparin1,000 units/500ml Premix(Conc:2 units/ml) IV PRN (14:15)
[2019-09-23 16:00] VITALS: BP 144/86
[2019-09-23] MEDS: Vancomycin 1gm/D5W 275ml IVPB SCH ×2 (17:17)
--- NOTE | 2019-09-23 19:35 | NUR ---
NURSE NOTES: Received patient in bed. Alert x1. Patient does not appear to be in distress. No signs of pain noted. GT patent and running glucerna 1.5 at 50 mL/hr. NC in place and running 3lpm. FC in place and draining yellow urine.
--- NOTE | 2019-09-23 19:39 | NUR ---
HAND-OFF: Report given to SERGIO WADE.
[2019-09-23 20:00] VITALS: BP 133/63
[2019-09-23] MEDS: Dyna-Hex 2% Top Sol 2oz TOPIC SCH (20:00)
[2019-09-24] VITALS: BP 142/74
[2019-09-24 03:58] VITALS: BP 121/65
[2019-09-24] MEDS: NovoLOG Insulin Flexpen SUBQ SCH ×4 (05:27→23:08)
[2019-09-24] MEDS: Meropenem 1 GM in NS 55 ML IVPB SCH ×3 (05:30→21:11)
--- NOTE | 2019-09-24 07:32 | NUR ---
HAND-OFF: Report given to Gladys HILL.
[2019-09-24 08:00] VITALS: BP 152/83
--- NOTE | 2019-09-24 08:00 | NUR ---
NURSE NOTES: Received patient in bed, asleep, no s/s of acute distress. Patient has GT, receives Glucerna 1.5 @ 50cc/hr, water flushes 100cc/q4hr. Patient also has NC, receives 3L O2/min, no sign of dyspnea noted. Patient has Benavidez catheter, draining to gravity yellow urine. Receives NS at 60cc/hr through Left hand 24G access. Bed locked at the lowest position possible, call light within easy reach, siderails upx3 and on p200 mattress. Will continue to monitor patient and follow up with the POC.
--- NOTE | 2019-09-24 10:11 | Pulmonology Progress Note ---
Assessment/Plan Assessment/Plan ASSESSMENT acute hypoxemic respiratory failure -resolved HCAP with Pseudomonas bacteremia with SCON-, persistent C dif positive Hx of R shoulder abscess aspiration risk functional quadriplegia dysphagia, , feeding by G tube severe protein calorie malnutrition DM HTN CAD with hx of [place] PLAN OF CARE MS floor stool + C dif, SCX+ Pseudomonas, persistent CONS bacteremia abx as per ID recs contact isolation ECHO with pEF, no evidence of vegetation last BCX NGTD CT of R shoulder - no evidence of abscess O2 titrate, HHN fup with CXR asp precautions, GT feeding swallow eval noted, recommended continue with nonoral feeding 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 offloading , continue wound care no other surgical intervention necessary at this time supportive care bowel regimen DNR/DNI status case discussed and evaluated by supervising physician Subjective Allergies: Coded Allergies: HYDROMORPHONE (Unverified Allergy, Unknown, 01/04/18) Subjective afebrile, on O2 via NC, pulse ox stable no signs of resp distress remains tachycardic intermittently Objective Last 24 Hour Vital Signs Date Time Temp Pulse Resp B/P (MAP) Pulse Ox O2 Delivery O2 Flow Rate FiO2 09/24/19 08:00 99.6 119 19 152/83 (106) 97 09/24/19 03:58 99.4 114 23 121/65 (83) 95 09/24/19 00:00 98.9 99 23 142/74 (96) 96 09/23/19 21:00 Nasal Cannula 3.0 09/23/19 20:00 98 Nasal Cannula 3.0 32 09/23/19 20:00 99.2 116 23 133/63 (86) 98 09/23/19 16:00 98.9 120 20 144/86 (105) 100 09/23/19 12:00 98.9 117 20 135/80 (98) 95 Intake and Output 09/23/19 09/24/19 19:00 07:00 Intake Total 400 ml 1080 ml Output Total 500 ml 750 ml Balance -100 ml 330 ml Intake Free Water 300 ml 300 ml IV Total 230 ml Tube Feeding 100 ml 550 ml Output Urine Total 500 ml 700 ml Emesis 50 ml Objective General Appearance: bedbound, poorly responsive AA male in NAD HEENT: normocephalic, atraumatic, anicteric Respiratory/Chest: no respiratory distress, no accessory muscle use, few isolated rhonchi Cardiovascular: tachycardia; 100-116 Abdomen: normal bowel sounds, soft, non tender, G tube Extremities: no edema Neurologic/Psychiatric: abnormal gait - bedridden , contracted, poorly responsive Musculoskeletal: atrophy Laboratory Tests 09/23/19 13:55: Vancomycin Level Trough 20.0H Current Medications Medications (Trade) Dose Ordered Sig/Nelson Route PRN Reason Start Time Stop Time Status Last Admin Dose Admin Acetaminophen (Tylenol) 650 mg Q4H PRN GT Mild Pain/Temp > 100.5 09/14/19 02:45 10/06/19 18:44 09/23/19 09:43 Amlodipine Besylate (Norvasc) 5 mg DAILY GT 09/14/19 09:00 10/07/19 08:59 09/23/19 09:41 Chlorhexidine Gluconate (Clara-Hex 2%) 1 applic DAILY@2000 TOPIC 09/23/19 20:00 10/23/19 19:59 Dextrose (Dextrose 50%) 25 ml Q30M PRN IV Hypoglycemia 09/14/19 02:30 10/06/19 17:59 Dextrose (Dextrose 50%) 50 ml Q30M PRN IV Hypoglycemia 09/14/19 02:30 10/06/19 17:59 Gabapentin (Neurontin) 250 mg TID GT 09/14/19 09:00 10/06/19 19:59 09/23/19 17:21 Heparin Sodium/ Sodium Chloride (Heparin 1000 units/500ml Premix) 1,000 unit ONCE PRN IV PICC PLACEMENT 09/23/19 14:15 09/25/19 23:59 Insulin Aspart (NovoLOG) Q6HR SUBQ 09/14/19 06:00 10/07/19 00:00 09/24/19 05:27 Lidocaine HCl (Xylocaine 1% 30ml) 30 ml ONCE PRN INJ PICC PLACEMENT 09/23/19 14:15 09/25/19 23:59 Meropenem 1 gm/ Sodium Chloride 55 ml @ 110 mls/hr Q8HR IVPB 09/14/19 06:00 09/25/19 23:59 09/24/19 05:30 Nitroglycerin (Ntg) 0.4 mg Q5M PRN SL Prn Chest Pain 09/14/19 02:15 10/06/19 15:59 Ondansetron HCl (Zofran) 4 mg Q6H PRN IVP Nausea & Vomiting 09/14/19 04:00 10/06/19 15:59 Polyethylene Glycol (Miralax) 17 gm DAILYPRN PRN GT Constipation 09/14/19 18:15 10/06/19 15:59 Sodium Chloride 1,000 ml @ 60 mls/hr [id number] IV 09/24/19 02:15 10/13/19 11:14 09/24/19 03:18 Vancomycin HCl (Firvanq) 125 mg FOUR TIMES A DAY ORAL 09/19/19 13:00 10/03/19 23:59 09/23/19 20:29 Vancomycin HCl (Vanco rx to dose) 1 ea DAILY PRN MISC Per rx protocol 09/14/19 09:00 10/06/19 15:59 Vancomycin HCl 1 gm/Dextrose 275 ml @ 183.708 mls/hr Q24H IVPB 09/23/19 18:00 09/28/19 17:59 Tiera Pat NP Sep 24, 2019 10:10
[2019-09-24] MEDS: Vancomycin oral 125mg/2.5ml ORAL SCH ×4 (10:29→21:11)
[2019-09-24] MEDS: Gabapentin 300 MG/6 ML Soln GT SCH ×3 (10:29→18:49)
--- NOTE | 2019-09-24 11:43 | Infectious Diseases Prog Note ---
Assessment/Plan Assessment/Plan 79yo gentleman with PMH below presents from [facility] for hypoxia and report of cough. Pt was recently admitted at this hospital 08/15-08/22 for sepsis 2/2 R shoulder abscess. Pt was discharged on zosyn and vancomycin. Pt unable to provide history. Per [facility] records, they were concerned for pneumonia. Pt was started on levaquin/flagyl early August. Fever; low grade Leukopenia, SP No lactic acidosis Pseudomonas PNA -09/18 CT chest: Combination of atelectasis and dense pneumonia involving the left lower lobe. Please correlate clinically. Additional patchy groundglass infiltrates in both upper lobes also present. Atherosclerotic disease. Acute hypoxic respiratory failure on nasal cannula supplement CXR: Pneumonia versus atelectasis at the left lung base. sputum cx: Pseudomonas 09/11 CXR: New right suprahilar and increasing left basilar infiltrates, since prior study of 5 days earlier 09/15 CXR: Increased left mid and lower lung patchy atelectasis and/or consolidation Unlikely UTI UA negative Persistent CoNS bacteremia, albeit diff species. 2/2 pressure ulcers? shoulder abscess? cervical spine prosthetic infection? R shoulder osteomyelitis? 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 Thickened mitral valve leaflets with normal excursion. Mitral annulus and aortic root calcification. Pulmonic valve not visualized. Normal tricuspid valve structure. 09/13 UE/LE duplex: negative for DVT 09/13 bcx: ngtd 09/14 BCx: NTD h/o Staph capitis(CoNS) bacteremia 08/15 08/16 BCx: NG h/o R shoulder abscess 09/18 CT shoulder: No evidence of abscess. 08/20 cx: Proteus, CoNS 09/13 CT shoulder: Since 08/22/2019, previously demonstrated right posterior shoulder superficial wound is largely closed. There is some residual gas and what appears to be scar tissue in the area. No definite abscess currently, although evaluation for such is limited in the absence of IV contrast. Multifocal bilateral pulmonary parenchymal infiltrates, presumably pneumonia, are noted. Extensive heterotopic new bone surrounding the right shoulder is again demonstrated. Correlate with clinical history. Evidence of prior cervical spine fusion surgery. MRSA screen negative HTN FTT Anemia CVA Aphasia G tube malfunction BPH DM Bedbound OA Dementia NH resident DNR Plan: Meropenem # and vanc # Cont PO Vancomycin 125mg qid #4/09/11 SP cefepime #5 f/u repeat bcx aspiration precaution, elevate HOB G tube care skin care at this point, concerning for infection of L knee prosthetic and/or neck prosthesis. once pneumonia improves, will obtain indium scan to evaluate previous cervical spine fusion surgery site and the R shoulder in the setting of persistent GPC bacteremia. if we obtain indium scan now, likely the lungs will light up. Thank you for this consult. [facility] will continue to follow the patient with you. Subjective Allergies: Coded Allergies: HYDROMORPHONE (Unverified Allergy, Unknown, 01/04/18) Subjective Afebrile No leukocytosis Objective Vital Signs Last 24 Hour Vital Signs Date Time Temp Pulse Resp B/P (MAP) Pulse Ox O2 Delivery O2 Flow Rate FiO2 09/24/19 10:29 119 152/83 09/24/19 08:00 99.6 119 19 152/83 (106) 97 09/24/19 03:58 99.4 114 23 121/65 (83) 95 09/24/19 00:00 98.9 99 23 142/74 (96) 96 09/23/19 21:00 Nasal Cannula 3.0 09/23/19 20:00 98 Nasal Cannula 3.0 32 09/23/19 20:00 99.2 116 23 133/63 (86) 98 09/23/19 16:00 98.9 120 20 144/86 (105) 100 09/23/19 12:00 98.9 117 20 135/80 (98) 95 Height (Feet): 5 Height (Inches): 11.00 Weight (Pounds): 165 Objective General Appearance: NAD cachetic HEENT: normocephalic, atraumatic Respiratory/Chest: chest wall non-tender, normal breath sounds Cardiovascular: normal rate, regular rhythm Abdomen: normal bowel sounds, soft, non tender Skin: no rash, no lesions Laboratory Tests Test 09/23/19 13:55 Vancomycin Level Trough 20.0 ug/mL (5.0-12.0) H Current Medications Medications (Trade) Dose Ordered Sig/Nelson Route PRN Reason Start Time Stop Time Status Last Admin Dose Admin Acetaminophen (Tylenol) 650 mg Q4H PRN GT Mild Pain/Temp > 100.5 09/14/19 02:45 10/06/19 18:44 09/23/19 09:43 Amlodipine Besylate (Norvasc) 5 mg DAILY GT 09/14/19 09:00 10/07/19 08:59 09/24/19 10:29 Chlorhexidine Gluconate (Clara-Hex 2%) 1 applic DAILY@2000 TOPIC 09/23/19 20:00 10/23/19 19:59 Dextrose (Dextrose 50%) 25 ml Q30M PRN IV Hypoglycemia 09/14/19 02:30 10/06/19 17:59 Dextrose (Dextrose 50%) 50 ml Q30M PRN IV Hypoglycemia 09/14/19 02:30 10/06/19 17:59 Gabapentin (Neurontin) 250 mg TID GT 09/14/19 09:00 10/06/19 19:59 09/24/19 10:29 Heparin Sodium/ Sodium Chloride (Heparin 1000 units/500ml Premix) 1,000 unit ONCE PRN IV PICC PLACEMENT 09/23/19 14:15 09/25/19 23:59 Insulin Aspart (NovoLOG) Q6HR SUBQ 09/14/19 06:00 10/07/19 00:00 09/24/19 05:27 Lidocaine HCl (Xylocaine 1% 30ml) 30 ml ONCE PRN INJ PICC PLACEMENT 09/23/19 14:15 09/25/19 23:59 Meropenem 1 gm/ Sodium Chloride 55 ml @ 110 mls/hr Q8HR IVPB 09/14/19 06:00 09/25/19 23:59 09/24/19 05:30 Nitroglycerin (Ntg) 0.4 mg Q5M PRN SL Prn Chest Pain 09/14/19 02:15 10/06/19 15:59 Ondansetron HCl (Zofran) 4 mg Q6H PRN IVP Nausea & Vomiting 09/14/19 04:00 10/06/19 15:59 Polyethylene Glycol (Miralax) 17 gm DAILYPRN PRN GT Constipation 09/14/19 18:15 10/06/19 15:59 Sodium Chloride 1,000 ml @ 60 mls/hr [id number] IV 09/24/19 02:15 10/13/19 11:14 09/24/19 03:18 Vancomycin HCl (Firvanq) 125 mg FOUR TIMES A DAY ORAL 09/19/19 13:00 10/03/19 23:59 09/24/19 10:29 Vancomycin HCl (Vanco rx to dose) 1 ea DAILY PRN MISC Per rx protocol 09/14/19 09:00 10/06/19 15:59 Vancomycin HCl 1 gm/Dextrose 275 ml @ 183.708 mls/hr Q24H IVPB 09/23/19 18:00 09/28/19 17:59 Segun Dejesus MD Sep 24, 2019 11:43
[2019-09-24 12:00] VITALS: BP 141/79
[2019-09-24 16:00] VITALS: BP 126/70
[2019-09-24] MEDS: Vancomycin 1gm/D5W 275ml IVPB SCH ×2 (18:56)
[2019-09-24 19:22] LABS: APPEARANCE,URINE CLEAR; BILIRUBIN, URINE NEGATIVE (NEGATIVE); COLOR,URINE PALE YELLOW; GLUCOSE, URINE (UA) NEGATIVE (NEGATIVE); KETONES,URINE 1+ (NEGATIVE); LEUKOCYTE ESTERASE ,URINE 3+ (NEGATIVE); NITRITE,URINE NEGATIVE (NEGATIVE); PH,URINE 6.5 (4.5-8.0); PROTEIN,URINE 3+ (NEGATIVE); UROBILINOGEN,URINE NORMAL MG/DL (0.0-1.0)
--- NOTE | 2019-09-24 19:23 | NUR ---
HAND-OFF: Report given to SERGIO Harrison.
--- NOTE | 2019-09-24 19:40 | Diagnostic Imaging Report ---
Indication: Cough Comparison: 09/13/2019 A single view chest radiograph was obtained. Findings: Interstitial opacities demonstrated bilaterally. Heart size is borderline. Bones are osteopenic. IMPRESSION: Infiltrates versus interstitial edema
--- NOTE | 2019-09-24 19:53 | NUR ---
NURSE NOTES: Received patient in bed. Alert x1. Patient does not appear to be in any distress. No signs of pain noted at this time. NC in place and running at 3 lpm. IV in the left hand noted with dressing intact and no redness or swelling. GT is patent and running at 50 mL/hr.
[2019-09-24 20:00] VITALS: BP 131/72
[2019-09-24] MEDS: Dyna-Hex 2% Top Sol 2oz TOPIC SCH (20:00)
--- NOTE | 2019-09-24 23:59 | Diagnostic Imaging Report ---
APPROVED REPORT CPT Code: 25088 Present Symptoms Shortness of breath BILATERAL: Imaging reveals a patent deep venous system bilaterally. There is no evidence of thrombus within the common femoral, superficial femoral, popliteal or tibial segments. The greater saphenous veins are within normal limits. Doppler indicates normal spontaneous flow within these segments.
[2019-09-25] VITALS (7 sets, daily range): BP systolic 103–142; BP diastolic 54–82
[2019-09-25] MEDS: Meropenem 1 GM in NS 55 ML IVPB SCH (05:13)
[2019-09-25] MEDS: NovoLOG Insulin Flexpen SUBQ SCH ×4 (05:18→23:50)
--- NOTE | 2019-09-25 06:30 | NUR ---
NURSE NOTES: Dressing change done for all wounds.
--- NOTE | 2019-09-25 07:30 | NUR ---
NURSE NOTES: Received pt from RN SHERI. pt is awake A&O X1 and nonverbal. Pt has NC 2LMP. pt has intact iv access LH 24G is running well. Pt has g tube in place is working well. pt has Benavidez cath in place is running well. No complain of pain at this moment. all needs attended, bed is locked and is in the lowest position, call light within easy reach. will continue to monitor.
--- NOTE | 2019-09-25 07:36 | NUR ---
HAND-OFF: Report given to Christy HILL.
[2019-09-25 08:48] LABS: HEMATOCRIT 30.8 % (42.0-52.0); HEMOGLOBIN 9.8 G/DL (14.2-18.0); LYMPHOCYTES % (AUTO) 21.6 % (20.0-45.0); MEAN CORPUSCULAR VOLUME 98 FL (80-99); NEUTROPHILS % (AUTO) 64.5 % (45.0-75.0); PLATELET COUNT 637 K/UL (150-450); RED BLOOD COUNT 3.15 M/UL (4.70-6.10)
[2019-09-25] MEDS: Vancomycin oral 125mg/2.5ml ORAL SCH ×4 (08:51→21:09)
[2019-09-25] MEDS: Gabapentin 300 MG/6 ML Soln GT SCH ×3 (08:51→17:38)
[2019-09-25] MEDS: Acetaminophen 650mg/20.3ml GT PRN (08:52)
[2019-09-25 08:58] LABS: ANION GAP 6 mmol/L (5-15); BLOOD UREA NITROGEN 20 mg/dL (7-18); CALCIUM 8.9 MG/DL (8.5-10.1); CARBON DIOXIDE 29 MMOL/L (21-32); CHLORIDE 103 MMOL/L (98-107); CREATININE 0.5 MG/DL (0.55-1.30); POTASSIUM 4.6 MMOL/L (3.5-5.1); SODIUM 138 MMOL/L (136-145)
--- NOTE | 2019-09-25 10:30 | NUR ---
CASE MANAGEMENT:REVIEW 09/25/19 SI: PNA. BACTEREMIA 97.5 110 19 142/82 98% ON 2L NC H/H 9.8/30.8 IS: IVF NS @75ML/HR IV VANCOMYCIN Q12HRS VANCOMYCIN HCL PO QID IV MEROPENEM Q8HR NORVASC GT QD HEPARIN SQ Q12 NEURONTIN GT TID NOVOLOG SQ Q6HR : 4E MED SURG DCP: [facility] PLAN: CONTROL FEVER 24HS CONTROL DIARRHEA
--- NOTE | 2019-09-25 12:06 | General Progress Note ---
Assessment/Plan Status: stable Assessment/Plan: Patient showing some intermittent progress in wound healing. Offloading the sacrococcyx area is the most important intervention and continue dressing changes per the protocol. That being said the ulcer itself is showing interval improvement. Elbow ulcer is superficial and need to maintain padding over it given the degree of contracture. No other surgical intervention for the wounds required at this time. Thank you for allowing me to participate in this patient' s care. Subjective Date patient seen: Sep 25, 2019 Time patient seen: 12:03 Allergies: Coded Allergies: HYDROMORPHONE (Unverified Allergy, Unknown, 01/04/18) Subjective Follow up evaluation on patient with sacral ulcer, left elbow ulcer. Patient unable to give any history and updated history obtained from medical records. Objective Last 24 Hour Vital Signs Date Time Temp Pulse Resp B/P (MAP) Pulse Ox O2 Delivery O2 Flow Rate FiO2 09/25/19 09:22 97.5 09/25/19 09:00 Nasal Cannula 2.0 09/25/19 08:51 110 142/82 09/25/19 08:00 97.5 110 19 142/82 (102) 98 09/25/19 06:59 98 Nasal Cannula 2.0 28 09/25/19 04:00 98.2 109 20 134/54 (80) 97 09/25/19 00:00 97.9 97 20 103/56 (72) 98 09/24/19 21:00 Nasal Cannula 3.0 09/24/19 20:00 99.4 113 22 131/72 (91) 96 09/24/19 19:49 98 Nasal Cannula 2.0 28 09/24/19 16:00 100.4 120 18 126/70 (88) 98 Intake and Output 09/24/19 09/25/19 19:00 07:00 Intake Total 1615 ml 1610 ml Output Total 1100 ml 1950 ml Balance 515 ml -340 ml Intake Free Water 300 ml IV Total 715 ml 1060 ml Tube Feeding 600 ml 550 ml Output Urine Total 1100 ml 1950 ml # Bowel Movements 1 Laboratory Tests 09/24/19 18:55: Urine Color Pale yellow, Urine Appearance Clear, Urine pH 6.5, Urine Specific [place] 1.015, Urine Protein 3+H, Urine Glucose (UA) Negative, Urine Ketones 1+H , Urine Blood 3+H, Urine Nitrite Negative, Urine Bilirubin Negative, Urine Urobilinogen Normal, Urine Leukocyte Esterase 3+H, Urine RBC 2-4H, Urine WBC 5- 10H, Urine Squamous Epithelial Cells None, Urine Bacteria ModerateH, Urine Yeast FewH 09/25/19 08:30: White Blood Count 5.0, Red Blood Count 3.15L, Hemoglobin 9.8L, Hematocrit 30.8L , Mean Corpuscular Volume 98, Mean Corpuscular Hemoglobin 30.9, Mean Corpuscular Hemoglobin Concent 31.7L, Red Cell Distribution Width 14.0, Platelet Count 637H, Mean Platelet Volume 6.1L, Neutrophils (%) (Auto) 64.5, Lymphocytes (%) (Auto) 21.6, Monocytes (%) (Auto) 10.0, Eosinophils (%) (Auto) 3.0, Basophils (%) (Auto) 1.0, Sodium Level 138, Potassium Level 4.6, Chloride Level 103, Carbon Dioxide Level 29, Anion Gap 6, Blood Urea Nitrogen 20H, Creatinine 0.5L, Estimat Glomerular Filtration Rate , Glucose Level 117H, Calcium Level 8.9 Height (Feet): 5 Height (Inches): 11.00 Weight (Pounds): 165 Skin: other - Sacral ulcer stage 3 with granular base. Periskin is inflamed but no warmth or fluctuance. Left elbow ulcer with some fibrotic debris at the base. No erythema or warmth. Darnell Marcelino MD Sep 25, 2019 12:06
--- NOTE | 2019-09-25 12:21 | Infectious Diseases Prog Note ---
Assessment/Plan Assessment/Plan 79yo gentleman with PMH below [facility] for hypoxia and report of cough. Pt was recently admitted at this hospital 08/15-08/22 for sepsis 2/2 R shoulder abscess. Pt was discharged on zosyn and vancomycin. Pt unable to provide history. [facility] records, they were concerned for pneumonia. Pt was started on levaquin/flagyl early August. Fever; low grade Leukopenia, SP No lactic acidosis Pseudomonas PNA -09/24 CXR: Interval improvement in the left lower lobe and bilateral upper lobe interstitial thickening. There is a persistent heterogeneous retrocardiac airspace opacity. No pleural effusion or pneumothorax. Heart size is normal. -09/18 CT chest: Combination of atelectasis and dense pneumonia involving the left lower lobe. Please correlate clinically. Additional patchy groundglass infiltrates in both upper lobes also present. Atherosclerotic disease. Acute hypoxic respiratory failure on nasal cannula supplement CXR: Pneumonia versus atelectasis at the left lung base. sputum cx: Pseudomonas 09/11 CXR: New right suprahilar and increasing left basilar infiltrates, since prior study of 5 days earlier 09/15 CXR: Increased left mid and lower lung patchy atelectasis and/or consolidation Unlikely UTI UA negative Persistent CoNS bacteremia, albeit diff species. 2/2 pressure ulcers? shoulder abscess? cervical spine prosthetic infection? R shoulder osteomyelitis? 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 Thickened mitral valve leaflets with normal excursion. Mitral annulus and aortic root calcification. Pulmonic valve not visualized. Normal tricuspid valve structure. 09/13 UE/LE duplex: negative for DVT 09/13 bcx: ngtd 09/14 BCx: NTD h/o Staph capitis(CoNS) bacteremia 08/15 08/16 BCx: NG h/o R shoulder abscess 09/18 CT shoulder: No evidence of abscess. 08/20 cx: Proteus, CoNS 09/13 CT shoulder: Since 08/22/2019, previously demonstrated right posterior shoulder superficial wound is largely closed. There is some residual gas and what appears to be scar tissue in the area. No definite abscess currently, although evaluation for such is limited in the absence of IV contrast. Multifocal bilateral pulmonary parenchymal infiltrates, presumably pneumonia, are noted. Extensive heterotopic new bone surrounding the right shoulder is again demonstrated. Correlate with clinical history. Evidence of prior cervical spine fusion surgery. MRSA screen negative HTN FTT Anemia CVA Aphasia G tube malfunction BPH DM Bedbound OA Dementia NH resident DNR Plan: D/c Meropenem #15/ Contine IV vanc # Cont PO Vancomycin 125mg qid #04/07 09/11 SP cefepime #5 f/u repeat bcx aspiration precaution, elevate HOB G tube care skin care at this point, concerning for infection of L knee prosthetic and/or neck prosthesis. once pneumonia improves, will obtain indium scan to evaluate previous cervical spine fusion surgery site and the R shoulder in the setting of persistent GPC bacteremia. if we obtain indium scan now, likely the lungs will light up. Thank you for this consult. [facility] will continue to follow the patient with you. Subjective Allergies: Coded Allergies: HYDROMORPHONE (Unverified Allergy, Unknown, 01/04/18) Subjective Tm 100.9 no leukocytosis Objective Vital Signs Last 24 Hour Vital Signs Date Time Temp Pulse Resp B/P (MAP) Pulse Ox O2 Delivery O2 Flow Rate FiO2 09/25/19 09:22 97.5 09/25/19 09:00 Nasal Cannula 2.0 09/25/19 08:51 110 142/82 09/25/19 08:00 97.5 110 19 142/82 (102) 98 09/25/19 06:59 98 Nasal Cannula 2.0 09/25/19 04:00 98.2 109 20 134/54 (80) 97 09/25/19 00:00 97.9 97 20 103/56 (72) 98 09/24/19 21:00 Nasal Cannula 3.0 09/24/19 20:00 99.4 113 22 131/72 (91) 96 09/24/19 19:49 98 Nasal Cannula 2.0 28 09/24/19 16:00 100.4 120 18 126/70 (88) 98 Height (Feet): 5 Height (Inches): 11.00 Weight (Pounds): 165 Objective General Appearance: cachetic HEENT: normocephalic, atraumatic Respiratory/Chest: chest wall non-tender, normal breath sounds Cardiovascular: normal rate, regular rhythm Abdomen: normal bowel sounds, soft, non tender Genitourinary: normal external genitalia Extremities: no cyanosis Skin: no rash, no lesions Microbiology Date/Time Source Procedure Growth Status 09/24/19 18:55 Indwelling Cath Urine Culture - Preliminary NO GROWTH Resulted Laboratory Tests Test 09/24/19 18:55 09/25/19 08:30 Urine Color Pale yellow Urine Appearance Clear Urine pH 6.5 (4.5-8.0) Urine Specific [place] 1.015 (1.005-1.035) Urine Protein 3+ (NEGATIVE) H Urine Glucose (UA) Negative (NEGATIVE) Urine Ketones 1+ (NEGATIVE) H Urine Blood 3+ (NEGATIVE) H Urine Nitrite Negative (NEGATIVE) Urine Bilirubin Negative (NEGATIVE) Urine Urobilinogen Normal MG/DL (0.0-1.0) Urine Leukocyte Esterase 3+ (NEGATIVE) H Urine RBC 2-4 /HPF (0 - 0) H Urine WBC 5-10 /HPF (0 - 0) H Urine Squamous Epithelial Cells None /LPF (NONE/OCC) Urine Bacteria Moderate /HPF (NONE) H Urine Yeast Few /HPF (NONE) H White Blood Count 5.0 K/UL (4.8-10.8) Red Blood Count 3.15 M/UL (4.70-6.10) L Hemoglobin 9.8 G/DL (14.2-18.0) L Hematocrit 30.8 % (42.0-52.0) L Mean Corpuscular Volume 98 FL (80-99) Mean Corpuscular Hemoglobin 30.9 PG (27.0-31.0) Mean Corpuscular Hemoglobin Concent 31.7 G/DL (32.0-36.0) L Red Cell Distribution Width 14.0 % (11.6-14.8) Platelet Count 637 K/UL (150-450) H Mean Platelet Volume 6.1 FL (6.5-10.1) L Neutrophils (%) (Auto) 64.5 % (45.0-75.0) Lymphocytes (%) (Auto) 21.6 % (20.0-45.0) Monocytes (%) (Auto) 10.0 % (1.0-10.0) Eosinophils (%) (Auto) 3.0 % (0.0-3.0) Basophils (%) (Auto) 1.0 % (0.0-2.0) Sodium Level 138 MMOL/L (136-145) Potassium Level 4.6 MMOL/L (3.5-5.1) Chloride Level 103 MMOL/L (98-107) Carbon Dioxide Level 29 MMOL/L (21-32) Anion Gap 6 mmol/L (5-15) Blood Urea Nitrogen 20 mg/dL (7-18) H Creatinine 0.5 MG/DL (0.55-1.30) L Estimat Glomerular Filtration Rate mL/min (>60) Glucose Level 117 MG/DL (74-106) H Calcium Level 8.9 MG/DL (8.5-10.1) Current Medications Medications (Trade) Dose Ordered Sig/Nelson Route PRN Reason Start Time Stop Time Status Last Admin Dose Admin Acetaminophen (Tylenol) 650 mg Q4H PRN GT Mild Pain/Temp > 100.5 09/14/19 02:45 10/06/19 18:44 09/25/19 08:52 Amlodipine Besylate (Norvasc) 5 mg DAILY GT 09/14/19 09:00 10/07/19 08:59 09/25/19 08:51 Chlorhexidine Gluconate (Clara-Hex 2%) 1 applic DAILY@1999 TOPIC 09/23/19 20:00 10/23/19 19:59 Dextrose (Dextrose 50%) 25 ml Q30M PRN IV Hypoglycemia 09/14/19 02:30 10/06/19 17:59 Dextrose (Dextrose 50%) 50 ml Q30M PRN IV Hypoglycemia 09/14/19 02:30 10/06/19 17:59 Gabapentin (Neurontin) 250 mg TID GT 09/14/19 09:00 10/06/19 19:59 09/25/19 08:51 Heparin Sodium/ Sodium Chloride (Heparin 1000 units/500ml Premix) 1,000 unit ONCE PRN IV PICC PLACEMENT 09/23/19 14:15 09/25/19 23:59 Insulin Aspart (NovoLOG) Q6HR SUBQ 09/14/19 06:00 10/07/19 00:00 09/25/19 05:18 Lidocaine HCl (Xylocaine 1% 30ml) 30 ml ONCE PRN INJ PICC PLACEMENT 09/23/19 14:15 09/25/19 23:59 Meropenem 1 gm/ Sodium Chloride 55 ml @ 110 mls/hr Q8HR IVPB 09/14/19 06:00 09/25/19 23:59 09/25/19 05:13 Nitroglycerin (Ntg) 0.4 mg Q5M PRN SL Prn Chest Pain 09/14/19 02:15 10/06/19 15:59 Ondansetron HCl (Zofran) 4 mg Q6H PRN IVP Nausea & Vomiting 09/14/19 04:00 10/06/19 15:59 Polyethylene Glycol (Miralax) 17 gm DAILYPRN PRN GT Constipation 09/14/19 18:15 10/06/19 15:59 Sodium Chloride 1,000 ml @ 75 mls/hr [id number] IV 09/24/19 18:00 10/24/19 17:59 09/24/19 22:54 Vancomycin HCl (Firvanq) 125 mg FOUR TIMES A DAY ORAL 09/19/19 13:00 10/03/19 23:59 09/25/19 08:51 Vancomycin HCl (Vanco rx to dose) 1 ea DAILY PRN MISC Per rx protocol 09/14/19 09:00 10/06/19 15:59 Vancomycin HCl 1 gm/Dextrose 275 ml @ 183.708 mls/hr Q24H IVPB 09/23/19 18:00 09/28/19 17:59 09/24/19 18:56 Avril Zaragoza M.D. Sep 25, 2019 12:21
--- NOTE | 2019-09-25 13:30 | NUR ---
NURSE NOTES: Dr MARCUM visited pt and is aware pt still has diarrhea, no new order to RN.Will continue to monitor.
--- NOTE | 2019-09-25 13:34 | Pulmonology Progress Note ---
Assessment/Plan Problems: (1) C. difficile colitis (2) Healthcare-associated pneumonia (3) At high risk for aspiration (4) History of CVA (cerebrovascular accident) (5) Advanced dementia (6) G tube feedings (7) HTN (hypertension) Assessment/Plan massive diarrhea C-diff positive afebrile yesterday still on face mask CT showed bilateral infiltrate, LLL consolidation Keep left chest elevated CXR is better 09/24 CT of shoulder didn't show any abscess, but showed extensive lung infiltrate adjust abx, on meropenem and vancomycin respiratory treatment titrate fio2 to sat of 92% aspiration precaution dvt prophylaxis blood cultures are persistently positive, with different strains of coag negative staff Subjective ROS Limited/Unobtainable: No Constitutional: Reports: no symptoms HEENT: Repors: no symptoms Respiratory: Reports: no symptoms Allergies: Coded Allergies: HYDROMORPHONE (Unverified Allergy, Unknown, 01/04/18) Objective Last 24 Hour Vital Signs Date Time Temp Pulse Resp B/P (MAP) Pulse Ox O2 Delivery O2 Flow Rate FiO2 09/25/19 12:00 98.5 99 17 137/76 (96) 98 09/25/19 09:22 97.5 09/25/19 09:00 Nasal Cannula 2.0 09/25/19 08:51 110 142/82 09/25/19 08:00 97.5 110 19 142/82 (102) 98 09/25/19 06:59 98 Nasal Cannula 2.0 28 09/25/19 04:00 98.2 109 20 134/54 (80) 97 09/25/19 00:00 97.9 97 20 103/56 (72) 98 09/24/19 21:00 Nasal Cannula 3.0 09/24/19 20:00 99.4 113 22 131/72 (91) 96 09/24/19 19:49 98 Nasal Cannula 2.0 28 09/24/19 16:00 100.4 120 18 126/70 (88) 98 Intake and Output 09/24/19 09/25/19 19:00 07:00 Intake Total 1615 ml 1610 ml Output Total 1100 ml 1950 ml Balance 515 ml -340 ml Intake Free Water 300 ml IV Total 715 ml 1060 ml Tube Feeding 600 ml 550 ml Output Urine Total 1100 ml 1950 ml # Bowel Movements 1 Objective General Appearance: cachetic HEENT: normocephalic, atraumatic Respiratory/Chest: chest wall non-tender, normal breath sounds Cardiovascular: normal rate, regular rhythm Abdomen: normal bowel sounds, soft, non tender Genitourinary: normal external genitalia Extremities: no cyanosis Skin: no rash, no lesions Microbiology Date/Time Source Procedure Growth Status 09/24/19 18:55 Indwelling Cath Urine Culture - Preliminary NO GROWTH Resulted Laboratory Tests 09/24/19 18:55: Urine Color Pale yellow, Urine Appearance Clear, Urine pH 6.5, Urine Specific [place] 1.015, Urine Protein 3+H, Urine Glucose (UA) Negative, Urine Ketones 1+H , Urine Blood 3+H, Urine Nitrite Negative, Urine Bilirubin Negative, Urine Urobilinogen Normal, Urine Leukocyte Esterase 3+H, Urine RBC 2-4H, Urine WBC 5- 10H, Urine Squamous Epithelial Cells None, Urine Bacteria ModerateH, Urine Yeast FewH 09/25/19 08:30: White Blood Count 5.0, Red Blood Count 3.15L, Hemoglobin 9.8L, Hematocrit 30.8L , Mean Corpuscular Volume 98, Mean Corpuscular Hemoglobin 30.9, Mean Corpuscular Hemoglobin Concent 31.7L, Red Cell Distribution Width 14.0, Platelet Count 637H, Mean Platelet Volume 6.1L, Neutrophils (%) (Auto) 64.5, Lymphocytes (%) (Auto) 21.6, Monocytes (%) (Auto) 10.0, Eosinophils (%) (Auto) 3.0, Basophils (%) (Auto) 1.0, Sodium Level 138, Potassium Level 4.6, Chloride Level 103, Carbon Dioxide Level 29, Anion Gap 6, Blood Urea Nitrogen 20H, Creatinine 0.5L, Estimat Glomerular Filtration Rate , Glucose Level 117H, Calcium Level 8.9 Current Medications Medications (Trade) Dose Ordered Sig/Nelson Route PRN Reason Start Time Stop Time Status Last Admin Dose Admin Acetaminophen (Tylenol) 650 mg Q4H PRN GT Mild Pain/Temp > 100.5 09/14/19 02:45 10/06/19 18:44 09/25/19 08:52 Amlodipine Besylate (Norvasc) 5 mg DAILY GT 09/14/19 09:00 10/07/19 08:59 09/25/19 08:51 Chlorhexidine Gluconate (Clara-Hex 2%) 1 applic DAILY@2000 TOPIC 09/23/19 20:00 10/23/19 19:59 Dextrose (Dextrose 50%) 25 ml Q30M PRN IV Hypoglycemia 09/14/19 02:30 10/06/19 17:59 Dextrose (Dextrose 50%) 50 ml Q30M PRN IV Hypoglycemia 09/14/19 02:30 10/06/19 17:59 Gabapentin (Neurontin) 250 mg TID GT 09/14/19 09:00 10/06/19 19:59 09/25/19 12:18 Heparin Sodium/ Sodium Chloride (Heparin 1000 units/500ml Premix) 1,000 unit ONCE PRN IV PICC PLACEMENT 09/23/19 14:15 09/25/19 23:59 Insulin Aspart (NovoLOG) Q6HR SUBQ 09/14/19 06:00 10/07/19 00:00 09/25/19 05:18 Lidocaine HCl (Xylocaine 1% 30ml) 30 ml ONCE PRN INJ PICC PLACEMENT 09/23/19 14:15 09/25/19 23:59 Nitroglycerin (Ntg) 0.4 mg Q5M PRN SL Prn Chest Pain 09/14/19 02:15 10/06/19 15:59 Ondansetron HCl (Zofran) 4 mg Q6H PRN IVP Nausea & Vomiting 09/14/19 04:00 10/06/19 15:59 Polyethylene Glycol (Miralax) 17 gm DAILYPRN PRN GT Constipation 09/14/19 18:15 10/06/19 15:59 Sodium Chloride 1,000 ml @ 75 mls/hr [id number] IV 09/24/19 18:00 10/24/19 17:59 09/25/19 12:22 Vancomycin HCl (Firvanq) 125 mg FOUR TIMES A DAY ORAL 09/19/19 13:00 10/03/19 23:59 09/25/19 12:18 Vancomycin HCl (Vanco rx to dose) 1 ea DAILY PRN MISC Per rx protocol 09/14/19 09:00 10/06/19 15:59 Vancomycin HCl 1 gm/Sodium Chloride 275 ml @ 183.708 mls/hr Q24H IVPB 09/25/19 18:00 10/03/19 23:59 Sowmya Abbasi MD Sep 25, 2019 13:34
--- NOTE | 2019-09-25 17:00 | NUR ---
NURSE NOTES: wound treatment done as order and pt tolerated well. will continue to monitor.
[2019-09-25] MEDS: Vancomycin 1 GM in NS 275 ML IVPB SCH (17:39)
--- NOTE | 2019-09-25 19:29 | NUR ---
HAND-OFF: Report given to NOEMY HILL.Pt is awake and stable.
--- NOTE | 2019-09-25 19:40 | NUR ---
NURSE NOTES: Received patient on bed, awake. non- verbal. with GT on going. IV line on the left hand and renner cath in placed. head of bed elevated. bed locked and in lowest position. call light and light button within easy reach. will continue plan of care.
[2019-09-25] MEDS: Dyna-Hex 2% Top Sol 2oz TOPIC SCH (20:00)
[2019-09-26 04:00] VITALS: BP 119/70
[2019-09-26] MEDS: NovoLOG Insulin Flexpen SUBQ SCH ×4 (05:46→23:45)
--- NOTE | 2019-09-26 06:30 | NUR ---
NURSE NOTES: Patient was cleaned. Reconnected IV tubing for iv fluid. IV site not flushing. Informed charge nurse. Will attempt IV insertion.
--- NOTE | 2019-09-26 07:24 | NUR ---
HAND-OFF: Report given to SERGIO Smith.
--- NOTE | 2019-09-26 07:43 | NUR ---
NURSE NOTES: Patient awake, alert x1, confused; on Nasal cannula 2 Liter, no sing of distress and shortness of breath; NO IV ACCESS, there is PICC line order and will follow up with that; Tube feeding Glucerna 1.5 running @50cc, no residual; Benavidez in place drains yellow urine; side rails up x2, breaks engaged, bed at lowest position; will keep monitoring.
[2019-09-26 08:00] VITALS: BP 151/72
[2019-09-26] MEDS: Vancomycin oral 125mg/2.5ml ORAL SCH ×4 (08:42→20:49)
[2019-09-26] MEDS: Gabapentin 300 MG/6 ML Soln GT SCH ×3 (08:47→17:35)
--- NOTE | 2019-09-26 11:18 | Infectious Diseases Prog Note ---
Assessment/Plan Assessment/Plan 79yo gentleman with PMH below presents from long-term for hypoxia and report of cough. Pt was recently admitted at this hospital 08/15-08/22 for sepsis 2/2 R shoulder abscess. Pt was discharged on zosyn and vancomycin. Pt unable to provide history. Per long-term records, they were concerned for pneumonia. Pt was started on levaquin/flagyl early August. Fever; low grade; improving Leukopenia, SP No lactic acidosis -09/24 u/a wbc 5-10; ucx NTD Bcx NTD Pseudomonas PNA -09/24 CXR: Interval improvement in the left lower lobe and bilateral upper lobe interstitial thickening. There is a persistent heterogeneous retrocardiac airspace opacity. No pleural effusion or pneumothorax. Heart size is normal. -09/18 CT chest: Combination of atelectasis and dense pneumonia involving the left lower lobe. Please correlate clinically. Additional patchy groundglass infiltrates in both upper lobes also present. Atherosclerotic disease. Acute hypoxic respiratory failure on nasal cannula supplement CXR: Pneumonia versus atelectasis at the left lung base. sputum cx: Pseudomonas 09/11 CXR: New right suprahilar and increasing left basilar infiltrates, since prior study of 5 days earlier 09/15 CXR: Increased left mid and lower lung patchy atelectasis and/or consolidation Unlikely UTI UA negative Persistent CoNS bacteremia, albeit diff species. 2/2 pressure ulcers? shoulder abscess? cervical spine prosthetic infection? R shoulder osteomyelitis? 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 Thickened mitral valve leaflets with normal excursion. Mitral annulus and aortic root calcification. Pulmonic valve not visualized. Normal tricuspid valve structure. 09/13 UE/LE duplex: negative for DVT 09/13 bcx: ngtd 09/14 BCx: NTD h/o Staph capitis(CoNS) bacteremia 08/15 08/16 BCx: NG h/o R shoulder abscess 09/18 CT shoulder: No evidence of abscess. 08/20 cx: Proteus, CoNS 09/13 CT shoulder: Since 08/22/2019, previously demonstrated right posterior shoulder superficial wound is largely closed. There is some residual gas and what appears to be scar tissue in the area. No definite abscess currently, although evaluation for such is limited in the absence of IV contrast. Multifocal bilateral pulmonary parenchymal infiltrates, presumably pneumonia, are noted. Extensive heterotopic new bone surrounding the right shoulder is again demonstrated. Correlate with clinical history. Evidence of prior cervical spine fusion surgery. MRSA screen negative HTN FTT Anemia CVA Aphasia G tube malfunction BPH DM Bedbound OA Dementia NH resident DNR Plan: Contine IV vanc # Cont PO Vancomycin 125mg qid #05/07 09/25 SP Meropenem #15 09/11 SP cefepime #5 f/u repeat bcx aspiration precaution, elevate HOB G tube care skin care at this point, concerning for infection of L knee prosthetic and/or neck prosthesis. once pneumonia improves, will obtain indium scan to evaluate previous cervical spine fusion surgery site and the R shoulder in the setting of persistent GPC bacteremia. if we obtain indium scan now, likely the lungs will light up. Thank you for this consult. [facility] will continue to follow the patient with you. Subjective Allergies: Coded Allergies: HYDROMORPHONE (Unverified Allergy, Unknown, 01/04/18) Subjective afebrile >36hrs no leukocytosis Objective Vital Signs Last 24 Hour Vital Signs Date Time Temp Pulse Resp B/P (MAP) Pulse Ox O2 Delivery O2 Flow Rate FiO2 09/26/19 09:00 Nasal Cannula 2.0 09/26/19 08:43 95 127/79 09/26/19 08:04 96 Nasal Cannula 2.0 28 09/26/19 08:00 99.7 101 25 151/72 (98) 96 09/26/19 04:00 97.9 104 18 119/70 (86) 98 09/25/19 23:57 98.7 102 18 112/70 (84) 98 09/25/19 21:00 Nasal Cannula 2.0 09/25/19 20:00 99.7 98 20 109/67 (81) 100 09/25/19 16:00 98.0 104 19 112/69 (83) 98 09/25/19 12:00 98.5 99 17 137/76 (96) 98 Height (Feet): 5 Height (Inches): 11.00 Weight (Pounds): 165 Objective General Appearance: cachetic HEENT: normocephalic, atraumatic Respiratory/Chest: chest wall non-tender, normal breath sounds Cardiovascular: normal rate, regular rhythm Abdomen: normal bowel sounds, soft, non tender Genitourinary: normal external genitalia Extremities: no cyanosis Skin: no rash, no lesions Microbiology Date/Time Source Procedure Growth Status 09/24/19 18:50 Blood Blood Culture - Preliminary NO GROWTH AFTER 24 HOURS Resulted 09/24/19 18:45 Blood Blood Culture - Preliminary NO GROWTH AFTER 24 HOURS Resulted 09/24/19 18:55 Indwelling Cath Urine Culture - Preliminary NO GROWTH AFTER 24 HOURS Resulted Current Medications Medications (Trade) Dose Ordered Sig/Nelson Route PRN Reason Start Time Stop Time Status Last Admin Dose Admin Acetaminophen (Tylenol) 650 mg Q4H PRN GT Mild Pain/Temp > 100.5 09/14/19 02:45 10/06/19 18:44 09/25/19 08:52 Amlodipine Besylate (Norvasc) 5 mg DAILY GT 09/14/19 09:00 10/07/19 08:59 09/26/19 08:43 Chlorhexidine Gluconate (Clara-Hex 2%) 1 applic DAILY@2000 TOPIC 09/23/19 20:00 10/23/19 19:59 Dextrose (Dextrose 50%) 25 ml Q30M PRN IV Hypoglycemia 09/14/19 02:30 10/06/19 17:59 Dextrose (Dextrose 50%) 50 ml Q30M PRN IV Hypoglycemia 09/14/19 02:30 10/06/19 17:59 Gabapentin (Neurontin) 250 mg TID GT 09/14/19 09:00 10/06/19 19:59 09/26/19 08:47 Insulin Aspart (NovoLOG) Q6HR SUBQ 09/14/19 06:00 10/07/19 00:00 09/26/19 05:46 Nitroglycerin (Ntg) 0.4 mg Q5M PRN SL Prn Chest Pain 09/14/19 02:15 10/06/19 15:59 Ondansetron HCl (Zofran) 4 mg Q6H PRN IVP Nausea & Vomiting 09/14/19 04:00 10/06/19 15:59 Polyethylene Glycol (Miralax) 17 gm DAILYPRN PRN GT Constipation 09/14/19 18:15 10/06/19 15:59 Sodium Chloride 1,000 ml @ 75 mls/hr [id number] IV 09/24/19 18:00 10/24/19 17:59 09/26/19 04:57 Vancomycin HCl (Firvanq) 125 mg FOUR TIMES A DAY ORAL 09/19/19 13:00 10/03/19 23:59 09/26/19 08:42 Vancomycin HCl (Vanco rx to dose) 1 ea DAILY PRN MISC Per rx protocol 09/14/19 09:00 10/06/19 15:59 Vancomycin HCl 1 gm/Sodium Chloride 275 ml @ 183.708 mls/hr Q24H IVPB 09/25/19 18:00 10/03/19 23:59 09/25/19 17:39 Avril Zaragoza M.D. Sep 26, 2019 11:18
[2019-09-26 12:00] VITALS: BP 127/79
--- NOTE | 2019-09-26 12:36 | Pulmonology Progress Note ---
Assessment/Plan Problems: (1) C. difficile colitis (2) Healthcare-associated pneumonia (3) At high risk for aspiration (4) History of CVA (cerebrovascular accident) (5) Advanced dementia (6) G tube feedings (7) HTN (hypertension) Assessment/Plan still has diarrhea C-diff positive afebrile yesterday still on face mask CT showed bilateral infiltrate, LLL consolidation Keep left chest elevated CXR is better 09/24 CT of shoulder didn't show any abscess, but showed extensive lung infiltrate adjust abx, on meropenem and vancomycin respiratory treatment titrate fio2 to sat of 92% aspiration precaution dvt prophylaxis blood cultures are persistently positive, with different strains of coag negative staff Subjective ROS Limited/Unobtainable: No Constitutional: Reports: no symptoms HEENT: Repors: no symptoms Respiratory: Reports: no symptoms Allergies: Coded Allergies: HYDROMORPHONE (Unverified Allergy, Unknown, 01/04/18) Objective Last 24 Hour Vital Signs Date Time Temp Pulse Resp B/P (MAP) Pulse Ox O2 Delivery O2 Flow Rate FiO2 09/26/19 12:00 99.0 101 20 127/79 (95) 97 09/26/19 09:00 Nasal Cannula 2.0 09/26/19 08:43 95 127/79 09/26/19 08:04 96 Nasal Cannula 2.0 28 09/26/19 08:00 99.7 101 25 151/72 (98) 96 09/26/19 04:00 97.9 104 18 119/70 (86) 98 09/25/19 23:57 98.7 102 18 112/70 (84) 98 09/25/19 21:00 Nasal Cannula 2.0 09/25/19 20:00 99.7 98 20 109/67 (81) 100 09/25/19 16:00 98.0 104 19 112/69 (83) 98 Intake and Output 09/25/19 09/26/19 18:59 06:59 Intake Total 1933.708 ml 791.292 ml Output Total 500 ml 1400 ml Balance 1433.708 ml -608.708 ml Intake Free Water 250 ml 100 ml IV Total 1083.708 ml 91.292 ml Tube Feeding 600 ml 600 ml Output Urine Total 500 ml 1400 ml # Bowel Movements 1 1 Objective General Appearance: cachetic HEENT: normocephalic, atraumatic Respiratory/Chest: chest wall non-tender, normal breath sounds Cardiovascular: normal rate, regular rhythm Abdomen: normal bowel sounds, soft, non tender Genitourinary: normal external genitalia Extremities: no cyanosis Skin: no rash, no lesions General Appearance: WD/WN Microbiology Date/Time Source Procedure Growth Status 09/24/19 18:50 Blood Blood Culture - Preliminary NO GROWTH AFTER 24 HOURS Resulted 09/24/19 18:45 Blood Blood Culture - Preliminary NO GROWTH AFTER 24 HOURS Resulted 09/24/19 18:55 Indwelling Cath Urine Culture - Preliminary NO GROWTH AFTER 24 HOURS Resulted Current Medications Medications (Trade) Dose Ordered Sig/Nelson Route PRN Reason Start Time Stop Time Status Last Admin Dose Admin Acetaminophen (Tylenol) 650 mg Q4H PRN GT Mild Pain/Temp > 100.5 09/14/19 02:45 10/06/19 18:44 09/25/19 08:52 Amlodipine Besylate (Norvasc) 5 mg DAILY GT 09/14/19 09:00 10/07/19 08:59 09/26/19 08:43 Chlorhexidine Gluconate (Clara-Hex 2%) 1 applic DAILY@1999 TOPIC 09/23/19 20:00 10/23/19 19:59 Dextrose (Dextrose 50%) 25 ml Q30M PRN IV Hypoglycemia 09/14/19 02:30 10/06/19 17:59 Dextrose (Dextrose 50%) 50 ml Q30M PRN IV Hypoglycemia 09/14/19 02:30 10/06/19 17:59 Gabapentin (Neurontin) 250 mg TID GT 09/14/19 09:00 10/06/19 19:59 09/26/19 08:47 Insulin Aspart (NovoLOG) Q6HR SUBQ 09/14/19 06:00 10/07/19 00:00 09/26/19 05:46 Nitroglycerin (Ntg) 0.4 mg Q5M PRN SL Prn Chest Pain 09/14/19 02:15 10/06/19 15:59 Ondansetron HCl (Zofran) 4 mg Q6H PRN IVP Nausea & Vomiting 09/14/19 04:00 10/06/19 15:59 Polyethylene Glycol (Miralax) 17 gm DAILYPRN PRN GT Constipation 09/14/19 18:15 10/06/19 15:59 Sodium Chloride 1,000 ml @ 75 mls/hr [id number] IV 09/24/19 18:00 10/24/19 17:59 09/26/19 04:57 Vancomycin HCl (Firvanq) 125 mg FOUR TIMES A DAY ORAL 09/19/19 13:00 10/03/19 23:59 09/26/19 08:42 Vancomycin HCl (Vanco rx to dose) 1 ea DAILY PRN MISC Per rx protocol 09/14/19 09:00 10/06/19 15:59 Vancomycin HCl 1 gm/Sodium Chloride 275 ml @ 183.708 mls/hr Q24H IVPB 09/25/19 18:00 10/03/19 23:59 09/25/19 17:39 Sowmya Abbasi MD Sep 26, 2019 12:36
[2019-09-26 16:00] VITALS: BP 137/69
[2019-09-26] MEDS ORDERED: Tubing IV Secondary IV ONE (17:05)
[2019-09-26] MEDS: Vancomycin 1 GM in NS 275 ML IVPB SCH (17:35)
--- NOTE | 2019-09-26 19:23 | NUR ---
HAND-OFF: Report given to PerezRN, Aline RN.
[2019-09-26 20:00] VITALS: BP 127/71
--- NOTE | 2019-09-26 20:13 | NUR ---
NURSE NOTES: Received patient on bed, awake. on o2 cannula @ 2lpm. with GT running 50 ml/hr of glucerna 1.5. no iv access. with renner cath in placed draining a light yellow urine. bed locked and in lowest position. call light and light button within easy reach. will continue plan of care.
[2019-09-26] MEDS: Dyna-Hex 2% Top Sol 2oz TOPIC SCH (20:48)
[2019-09-27] VITALS: BP 125/73
[2019-09-27 04:00] VITALS: BP 111/61
[2019-09-27] MEDS: NovoLOG Insulin Flexpen SUBQ SCH ×3 (05:55→17:38)
--- NOTE | 2019-09-27 07:27 | NUR ---
HAND-OFF: Report given to SERGIO ANDERSON.
--- NOTE | 2019-09-27 07:37 | NUR ---
NURSE NOTES: Patient awake, alert x1, confused; on Nasal Cannula 2 Liter, no sing distress and shortness of breath; no sign of chest pain; NO IV ACCESS, patient scheduled for PICC line insertion today, will follow up with that; Benavidez in place drains by gravity; Tube feeding Glucerna 1.5 running @50cc, no residual; head of the bed elevated, side rails up x2, breaks engaged; will keep monitoring.
[2019-09-27 07:47] VITALS: BP 148/74
[2019-09-27] MEDS: Gabapentin 300 MG/6 ML Soln GT SCH ×3 (09:37→17:38)
[2019-09-27] MEDS: Vancomycin oral 125mg/2.5ml ORAL SCH ×4 (09:40→20:27)
--- NOTE | 2019-09-27 10:50 | NUR ---
RD ASSESSMENT & RECOMMENDATIONS SEE CARE ACTIVITY FOR COMPLETE ASSESSMENT DAILY ESTIMATED NEEDS: Needs based on cardiac, wound healing, DM/ 70kg 25-30 kcals/kg 3251-5925 total kcals 1.25-1.5 g protein/kg 87-105 g total protein 25-30 mL/kg 3117-5520 total fluid mLs NUTRITION DIAGNOSIS: * Swallowing difficulty R/T dysphagia as evidenced by pt PEG dependent. * Increased Kcal and pro needs r/t wound healing as evidenced by pt admitted w/ full thickness wounds at R scapula and L elbow, non-blanching erythema at rt heel. * Altered nutrition related lab values R/T h/o DM as evidenced by elev POC glu (106-201-> now improved), on NISS. ENTERAL NUTRITION RECOMMENDATIONS: Glucerna 1.5 @ 50ml/hr x 24 hrs to provide 1200ml, 1800kcal, 99g prot, 911ml free water * Maintain Glucerna 1.5 @ 50ml/hr x24hrs. * HOB over 30 degrees * Water flush of 240ml q 6hrs ADDITIONAL RECOMMENDATIONS: * Calibrated bedscale wt for accurate CBW now day 21 adm, rec to recalibrate bed scale as pt presents w. varying weights w/ P200 mattress * Check A1C for eval of glycemic control: h/o DM * Monitor lytes, replete as needed, w/ active loose stool and diarrhea. * Wound healing: add Vit C 250mg BID + ZnSO4 220mg QD x 10 days add Phillip 1pkt BID .
[2019-09-27 12:00] VITALS: BP 156/88
--- NOTE | 2019-09-27 13:07 | Infectious Diseases Prog Note ---
Assessment/Plan Assessment/Plan 79yo gentleman with PMH below presents from shelter for hypoxia and report of cough. Pt was recently admitted at this hospital 08/15-08/22 for sepsis 2/2 R shoulder abscess. Pt was discharged on zosyn and vancomycin. Pt unable to provide history. Per shelter records, they were concerned for pneumonia. Pt was started on levaquin/flagyl early August. Fever; low grade; improving Leukopenia, SP No lactic acidosis -09/24 u/a wbc 5-10; ucx <10k yeast Bcx NTD Pseudomonas PNA, sp Rx -09/24 CXR: Interval improvement in the left lower lobe and bilateral upper lobe interstitial thickening. There is a persistent heterogeneous retrocardiac airspace opacity. No pleural effusion or pneumothorax. Heart size is normal. -09/18 CT chest: Combination of atelectasis and dense pneumonia involving the left lower lobe. Please correlate clinically. Additional patchy groundglass infiltrates in both upper lobes also present. Atherosclerotic disease. Acute hypoxic respiratory failure on nasal cannula supplement CXR: Pneumonia versus atelectasis at the left lung base. sputum cx: Pseudomonas 09/11 CXR: New right suprahilar and increasing left basilar infiltrates, since prior study of 5 days earlier 09/15 CXR: Increased left mid and lower lung patchy atelectasis and/or consolidation Unlikely UTI UA negative Persistent CoNS bacteremia, albeit diff species. 2/2 pressure ulcers? shoulder abscess? cervical spine prosthetic infection? R shoulder osteomyelitis? 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 Thickened mitral valve leaflets with normal excursion. Mitral annulus and aortic root calcification. Pulmonic valve not visualized. Normal tricuspid valve structure. 09/13 UE/LE duplex: negative for DVT 09/13 bcx: ngtd 09/14 BCx: NTD h/o Staph capitis(CoNS) bacteremia 08/15 08/16 BCx: NG h/o R shoulder abscess 09/18 CT shoulder: No evidence of abscess. 08/20 cx: Proteus, CoNS 09/13 CT shoulder: Since 08/22/2019, previously demonstrated right posterior shoulder superficial wound is largely closed. There is some residual gas and what appears to be scar tissue in the area. No definite abscess currently, although evaluation for such is limited in the absence of IV contrast. Multifocal bilateral pulmonary parenchymal infiltrates, presumably pneumonia, are noted. Extensive heterotopic new bone surrounding the right shoulder is again demonstrated. Correlate with clinical history. Evidence of prior cervical spine fusion surgery. MRSA screen negative HTN FTT Anemia CVA Aphasia G tube malfunction BPH DM Bedbound OA Dementia NH resident DNR Plan: Contine IV vanc # Cont PO Vancomycin 125mg qid #06/07 09/25 SP Meropenem #15 09/11 SP cefepime #5 f/u repeat bcx aspiration precaution, elevate HOB G tube care skin care at this point, concerning for infection of L knee prosthetic and/or neck prosthesis. once pneumonia improves, will obtain indium scan to evaluate previous cervical spine fusion surgery site and the R shoulder in the setting of persistent GPC bacteremia. if we obtain indium scan now, likely the lungs will light up. Thank you for this consult. [facility] will continue to follow the patient with you. Subjective Allergies: Coded Allergies: HYDROMORPHONE (Unverified Allergy, Unknown, 01/04/18) Subjective afebrile >48hrs no leukocytosis Objective Vital Signs Last 24 Hour Vital Signs Date Time Temp Pulse Resp B/P (MAP) Pulse Ox O2 Delivery O2 Flow Rate FiO2 09/27/19 12:00 97.9 97 18 156/88 (110) 100 97 09/27/19 09:38 104 145/76 09/27/19 08:57 Nasal Cannula 2.0 09/27/19 08:10 Nasal Cannula 2.0 09/27/19 07:51 Nasal Cannula 2.0 Nasal Cannula 2.0 09/27/19 07:47 99.1 102 16 148/74 (98) 97 102 09/27/19 04:00 98.0 106 19 111/61 (78) 98 09/27/19 00:00 98.9 109 19 125/73 (90) 100 09/26/19 21:00 Nasal Cannula 2.0 09/26/19 20:00 99.5 105 19 127/71 (89) 99 09/26/19 16:00 99.6 104 20 137/69 (91) 97 Height (Feet): 5 Height (Inches): 11.00 Weight (Pounds): 164 Objective General Appearance: cachetic HEENT: normocephalic, atraumatic Respiratory/Chest: chest wall non-tender, normal breath sounds Cardiovascular: normal rate, regular rhythm Abdomen: normal bowel sounds, soft, non tender Genitourinary: normal external genitalia Extremities: no cyanosis Skin: no rash, no lesions Microbiology Date/Time Source Procedure Growth Status 09/24/19 18:50 Blood Blood Culture - Preliminary NO GROWTH AFTER 48 HOURS Resulted 09/24/19 18:45 Blood Blood Culture - Preliminary NO GROWTH AFTER 48 HOURS Resulted 09/24/19 18:55 Indwelling Cath Urine Culture - Final YEAST Complete Current Medications Medications (Trade) Dose Ordered Sig/Nelson Route PRN Reason Start Time Stop Time Status Last Admin Dose Admin Acetaminophen (Tylenol) 650 mg Q4H PRN GT Mild Pain/Temp > 100.5 09/14/19 02:45 10/06/19 18:44 09/25/19 08:52 Amlodipine Besylate (Norvasc) 5 mg DAILY GT 09/14/19 09:00 10/07/19 08:59 09/27/19 09:38 Chlorhexidine Gluconate (Clara-Hex 2%) 1 applic DAILY@1999 TOPIC 09/23/19 20:00 10/23/19 19:59 09/26/19 20:48 Dextrose (Dextrose 50%) 25 ml Q30M PRN IV Hypoglycemia 09/14/19 02:30 10/06/19 17:59 Dextrose (Dextrose 50%) 50 ml Q30M PRN IV Hypoglycemia 09/14/19 02:30 10/06/19 17:59 Gabapentin (Neurontin) 250 mg TID GT 09/14/19 09:00 10/06/19 19:59 09/27/19 12:23 Insulin Aspart (NovoLOG) Q6HR SUBQ 09/14/19 06:00 10/07/19 00:00 09/27/19 12:27 Nitroglycerin (Ntg) 0.4 mg Q5M PRN SL Prn Chest Pain 09/14/19 02:15 10/06/19 15:59 Ondansetron HCl (Zofran) 4 mg Q6H PRN IVP Nausea & Vomiting 09/14/19 04:00 10/06/19 15:59 Polyethylene Glycol (Miralax) 17 gm DAILYPRN PRN GT Constipation 09/14/19 18:15 10/06/19 15:59 Sodium Chloride 1,000 ml @ 75 mls/hr [id number] IV 09/24/19 18:00 10/24/19 17:59 09/26/19 04:57 Vancomycin HCl (Firvanq) 125 mg FOUR TIMES A DAY ORAL 09/19/19 13:00 10/03/19 23:59 09/27/19 12:23 Vancomycin HCl (Vanco rx to dose) 1 ea DAILY PRN MISC Per rx protocol 09/14/19 09:00 10/06/19 15:59 Vancomycin HCl 1 gm/Sodium Chloride 275 ml @ 183.708 mls/hr Q24H IVPB 09/25/19 18:00 10/03/19 23:59 09/25/19 17:39 Avril Zaragoza M.D. Sep 27, 2019 13:07
--- NOTE | 2019-09-27 14:19 | Pulmonology Progress Note ---
Assessment/Plan Problems: (1) C. difficile colitis (2) Healthcare-associated pneumonia (3) At high risk for aspiration (4) History of CVA (cerebrovascular accident) (5) Advanced dementia (6) G tube feedings (7) HTN (hypertension) Assessment/Plan still has diarrhea C-diff positive afebrile yesterday still on face mask CT showed bilateral infiltrate, LLL consolidation Keep left chest elevated CXR is better 09/24 CT of shoulder didn't show any abscess, but showed extensive lung infiltrate adjust abx, on meropenem and vancomycin respiratory treatment titrate fio2 to sat of 92% aspiration precaution dvt prophylaxis blood cultures are persistently positive, with different strains of coag negative staff Subjective ROS Limited/Unobtainable: No Constitutional: Reports: no symptoms HEENT: Repors: no symptoms Allergies: Coded Allergies: HYDROMORPHONE (Unverified Allergy, Unknown, 01/04/18) Objective Last 24 Hour Vital Signs Date Time Temp Pulse Resp B/P (MAP) Pulse Ox O2 Delivery O2 Flow Rate FiO2 09/27/19 13:06 95 Nasal Cannula 2.0 28 09/27/19 12:00 97.9 97 18 156/88 (110) 100 97 09/27/19 09:38 104 145/76 09/27/19 08:57 Nasal Cannula 2.0 09/27/19 08:10 Nasal Cannula 2.0 09/27/19 07:51 Nasal Cannula 2.0 Nasal Cannula 2.0 09/27/19 07:47 99.1 102 16 148/74 (98) 97 102 09/27/19 04:00 98.0 106 19 111/61 (78) 98 09/27/19 00:00 98.9 109 19 125/73 (90) 100 09/26/19 21:00 Nasal Cannula 2.0 09/26/19 20:00 99.5 105 19 127/71 (89) 99 09/26/19 16:00 99.6 104 20 137/69 (91) 97 Intake and Output 09/26/19 09/27/19 18:59 06:59 Intake Total 1050 ml 750 ml Output Total 650 ml 700 ml Balance 400 ml 50 ml Intake Free Water 450 ml 350 ml Tube Feeding 600 ml 400 ml Output Urine Total 650 ml 700 ml Objective General Appearance: cachetic HEENT: normocephalic, atraumatic Respiratory/Chest: chest wall non-tender, normal breath sounds Cardiovascular: normal rate, regular rhythm Abdomen: normal bowel sounds, soft, non tender Genitourinary: normal external genitalia Extremities: no cyanosis Skin: no rash, no lesions Microbiology Date/Time Source Procedure Growth Status 09/24/19 18:50 Blood Blood Culture - Preliminary NO GROWTH AFTER 48 HOURS Resulted 09/24/19 18:45 Blood Blood Culture - Preliminary NO GROWTH AFTER 48 HOURS Resulted 09/24/19 18:55 Indwelling Cath Urine Culture - Final YEAST Complete Current Medications Medications (Trade) Dose Ordered Sig/Nelson Route PRN Reason Start Time Stop Time Status Last Admin Dose Admin Acetaminophen (Tylenol) 650 mg Q4H PRN GT Mild Pain/Temp > 100.5 09/14/19 02:45 10/06/19 18:44 09/25/19 08:52 Amlodipine Besylate (Norvasc) 5 mg DAILY GT 09/14/19 09:00 10/07/19 08:59 09/27/19 09:38 Chlorhexidine Gluconate (Clara-Hex 2%) 1 applic DAILY@2000 TOPIC 09/23/19 20:00 10/23/19 19:59 09/26/19 20:48 Dextrose (Dextrose 50%) 25 ml Q30M PRN IV Hypoglycemia 09/14/19 02:30 10/06/19 17:59 Dextrose (Dextrose 50%) 50 ml Q30M PRN IV Hypoglycemia 09/14/19 02:30 10/06/19 17:59 Gabapentin (Neurontin) 250 mg TID GT 09/14/19 09:00 10/06/19 19:59 09/27/19 12:23 Insulin Aspart (NovoLOG) Q6HR SUBQ 09/14/19 06:00 10/07/19 00:00 09/27/19 12:27 Nitroglycerin (Ntg) 0.4 mg Q5M PRN SL Prn Chest Pain 09/14/19 02:15 10/06/19 15:59 Ondansetron HCl (Zofran) 4 mg Q6H PRN IVP Nausea & Vomiting 09/14/19 04:00 10/06/19 15:59 Polyethylene Glycol (Miralax) 17 gm DAILYPRN PRN GT Constipation 09/14/19 18:15 10/06/19 15:59 Sodium Chloride 1,000 ml @ 75 mls/hr [id number] IV 09/24/19 18:00 10/24/19 17:59 09/26/19 04:57 Vancomycin HCl (Firvanq) 125 mg FOUR TIMES A DAY ORAL 09/19/19 13:00 10/03/19 23:59 09/27/19 12:23 Vancomycin HCl (Vanco rx to dose) 1 ea DAILY PRN MISC Per rx protocol 09/14/19 09:00 10/06/19 15:59 Vancomycin HCl 1 gm/Sodium Chloride 275 ml @ 183.708 mls/hr Q24H IVPB 09/25/19 18:00 10/03/19 23:59 09/25/19 17:39 Sowmya Abbasi MD Sep 27, 2019 14:18
--- NOTE | 2019-09-27 14:40 | NUR ---
NURSE NOTES: Patient left the floor by amber for PICC line insertion; patient accompanied by transporter and daughter;
[2019-09-27 16:00] VITALS: BP 130/97
[2019-09-27] MEDS: Vancomycin 1 GM in NS 275 ML IVPB SCH (17:38)
--- NOTE | 2019-09-27 19:52 | NUR ---
HAND-OFF: Report given to SERGIO Atkinson.
--- NOTE | 2019-09-27 19:53 | NUR ---
NURSE NOTES: Received patient in no apparent distress. A&OX1. NC 2L on, no s/s of respiratory distress noted. G-tube in place, running Glucerna 1.5 50cc/hr, 0cc residual noted, flushed, elevated HOB. Benavidez draining well by gravity, yellow urine noted. Bed in lowest position. Call light within reach. Will continue to monitor.
[2019-09-27 20:00] VITALS: BP 132/91
[2019-09-27] MEDS: Dyna-Hex 2% Top Sol 2oz TOPIC SCH (20:00)
[2019-09-28] VITALS: BP 132/95
[2019-09-28] MEDS: NovoLOG Insulin Flexpen SUBQ SCH ×4 (00:23→18:00)
[2019-09-28 04:00] VITALS: BP 133/79
--- NOTE | 2019-09-28 07:24 | NUR ---
HAND-OFF: Report given to Christy HILL.
--- NOTE | 2019-09-28 07:30 | NUR ---
NURSE NOTES: Received pt from SERGIO NUNEZ. pt is awake A&O X1 and nonverbal. Pt has NC 2LMP. pt has no iv access, waiting for central line insertion today. Pt has g tube in place is working well. pt has Benavidez cath in place is running well. No complain of pain at this moment. all needs attended, bed is locked and is in the lowest position, call light within easy reach. will continue to monitor.
[2019-09-28 08:00] VITALS: BP 119/66
--- NOTE | 2019-09-28 08:30 | NUR ---
NURSE NOTES: RN called Dr MARCUM regarding HR 130 and other V/S and lab results waiting to call back.T notified to suction pt , it's done b ut HR is still the same.
[2019-09-28] MEDS: Vancomycin oral 125mg/2.5ml ORAL SCH ×4 (09:22→22:08)
[2019-09-28] MEDS: Acetaminophen 650mg/20.3ml GT PRN ×2 (09:22→15:39)
[2019-09-28] MEDS: Gabapentin 300 MG/6 ML Soln GT SCH ×3 (09:22→19:18)
--- NOTE | 2019-09-28 09:32 | NUR ---
CASE MANAGEMENT:REVIEW 09/28/19 SI: PNA. BACTEREMIA 99.1 119 20 133/79 94% ON 2L NC IS: VANCOMYCIN HCL GT QID IV MEROPENEM Q8HR NORVASC GT QD HEPARIN SQ Q12 NEURONTIN GT TID NOVOLOG SQ Q6HR : 4E MED SURG DCP: [facility] PLAN: CONTROL FEVER 24HS CONTROL DIARRHEA- LAST NIGHT X1
--- NOTE | 2019-09-28 10:00 | NUR ---
NURSE NOTES: Dr MARCUM called back and ordered stat ECG, noted and carried out will continue to monitor.
--- NOTE | 2019-09-28 10:30 | NUR ---
NURSE NOTES: Dr MARCUM is aware about ECG result, no new order to RN. Will continue to monitor.
[2019-09-28 12:00] VITALS: BP 127/62
--- NOTE | 2019-09-28 12:46 | Infectious Diseases Prog Note ---
Assessment/Plan Assessment/Plan 79yo gentleman with PMH below presents from long-term for hypoxia and report of cough. Pt was recently admitted at this hospital 08/15-08/22 for sepsis 2/2 R shoulder abscess. Pt was discharged on zosyn and vancomycin. Pt unable to provide history. Per long-term records, they were concerned for pneumonia. Pt was started on levaquin/flagyl early August. Fever; low grade; improving Leukopenia, SP No lactic acidosis -09/24 u/a wbc 5-10; ucx <10k yeast Bcx NTD Pseudomonas PNA, sp Rx -09/24 CXR: Interval improvement in the left lower lobe and bilateral upper lobe interstitial thickening. There is a persistent heterogeneous retrocardiac airspace opacity. No pleural effusion or pneumothorax. Heart size is normal. -09/18 CT chest: Combination of atelectasis and dense pneumonia involving the left lower lobe. Please correlate clinically. Additional patchy groundglass infiltrates in both upper lobes also present. Atherosclerotic disease. Acute hypoxic respiratory failure on nasal cannula supplement CXR: Pneumonia versus atelectasis at the left lung base. sputum cx: Pseudomonas 09/11 CXR: New right suprahilar and increasing left basilar infiltrates, since prior study of 5 days earlier 09/15 CXR: Increased left mid and lower lung patchy atelectasis and/or consolidation Unlikely UTI UA negative Persistent CoNS bacteremia, albeit diff species. 2/2 pressure ulcers? shoulder abscess? cervical spine prosthetic infection? R shoulder osteomyelitis? 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 Thickened mitral valve leaflets with normal excursion. Mitral annulus and aortic root calcification. Pulmonic valve not visualized. Normal tricuspid valve structure. 09/13 UE/LE duplex: negative for DVT 09/13 bcx: ngtd 09/14 BCx: NTD h/o Staph capitis(CoNS) bacteremia 08/15 08/16 BCx: NG h/o R shoulder abscess 09/18 CT shoulder: No evidence of abscess. 08/20 cx: Proteus, CoNS 09/13 CT shoulder: Since 08/22/2019, previously demonstrated right posterior shoulder superficial wound is largely closed. There is some residual gas and what appears to be scar tissue in the area. No definite abscess currently, although evaluation for such is limited in the absence of IV contrast. Multifocal bilateral pulmonary parenchymal infiltrates, presumably pneumonia, are noted. Extensive heterotopic new bone surrounding the right shoulder is again demonstrated. Correlate with clinical history. Evidence of prior cervical spine fusion surgery. MRSA screen negative HTN FTT Anemia CVA Aphasia G tube malfunction BPH DM Bedbound OA Dementia NH resident DNR Plan: Contine IV vanc # Cont PO Vancomycin 125mg qid #07/08 12 SP Meropenem #15 09/11 SP cefepime #5 f/u repeat bcx aspiration precaution, elevate HOB G tube care skin care at this point, concerning for infection of L knee prosthetic and/or neck prosthesis. once pneumonia improves, will obtain indium scan to evaluate previous cervical spine fusion surgery site and the R shoulder in the setting of persistent GPC bacteremia. if we obtain indium scan now, likely the lungs will light up. Thank you for this consult. [facility] will continue to follow the patient with you. Subjective Allergies: Coded Allergies: HYDROMORPHONE (Unverified Allergy, Unknown, 01/04/18) Subjective afebrile no leukocytosis Objective Vital Signs Last 24 Hour Vital Signs Date Time Temp Pulse Resp B/P (MAP) Pulse Ox O2 Delivery O2 Flow Rate FiO2 09/28/19 09:52 99.1 09/28/19 09:21 82 119/66 09/28/19 09:00 Nasal Cannula 2.0 Nasal Cannula 2.0 09/28/19 08:00 98.4 132 20 119/66 (83) 91 09/28/19 04:00 99.1 119 20 133/79 (97) 94 09/28/19 00:26 96 Nasal Cannula 2.0 28 09/28/19 00:00 99.1 111 18 132/95 (107) 94 09/27/19 21:00 Nasal Cannula 2.0 Nasal Cannula 2.0 09/27/19 20:00 99.1 106 20 132/91 (105) 97 09/27/19 16:00 98.9 99 20 130/97 (108) 95 99 09/27/19 13:06 95 Nasal Cannula 2.0 28 Height (Feet): 5 Height (Inches): 11.00 Weight (Pounds): 164 Objective General Appearance: cachetic HEENT: normocephalic, atraumatic Respiratory/Chest: chest wall non-tender, normal breath sounds Cardiovascular: normal rate, regular rhythm Abdomen: normal bowel sounds, soft, non tender Genitourinary: normal external genitalia Extremities: no cyanosis Skin: no rash, no lesions Current Medications Medications (Trade) Dose Ordered Sig/Nelson Route PRN Reason Start Time Stop Time Status Last Admin Dose Admin Acetaminophen (Tylenol) 650 mg Q4H PRN GT Mild Pain/Temp > 100.5 09/14/19 02:45 10/06/19 18:44 09/28/19 09:22 Amlodipine Besylate (Norvasc) 5 mg DAILY GT 09/14/19 09:00 10/07/19 08:59 09/28/19 09:21 Chlorhexidine Gluconate (Clara-Hex 2%) 1 applic DAILY@2000 TOPIC 09/23/19 20:00 10/23/19 19:59 09/26/19 20:48 Dextrose (Dextrose 50%) 25 ml Q30M PRN IV Hypoglycemia 09/14/19 02:30 10/06/19 17:59 Dextrose (Dextrose 50%) 50 ml Q30M PRN IV Hypoglycemia 09/14/19 02:30 10/06/19 17:59 Gabapentin (Neurontin) 250 mg TID GT 09/14/19 09:00 10/06/19 19:59 09/28/19 12:36 Insulin Aspart (NovoLOG) Q6HR SUBQ 09/14/19 06:00 10/07/19 00:00 09/28/19 12:37 Nitroglycerin (Ntg) 0.4 mg Q5M PRN SL Prn Chest Pain 09/14/19 02:15 10/06/19 15:59 Ondansetron HCl (Zofran) 4 mg Q6H PRN IVP Nausea & Vomiting 09/14/19 04:00 10/06/19 15:59 Polyethylene Glycol (Miralax) 17 gm DAILYPRN PRN GT Constipation 09/14/19 18:15 10/06/19 15:59 Sodium Chloride 1,000 ml @ 75 mls/hr [id number] IV 09/24/19 18:00 10/24/19 17:59 09/26/19 04:57 Vancomycin HCl (Firvanq) 125 mg FOUR TIMES A DAY ORAL 09/19/19 13:00 10/03/19 23:59 09/28/19 12:35 Vancomycin HCl (Vanco rx to dose) 1 ea DAILY PRN MISC Per rx protocol 09/14/19 09:00 10/06/19 15:59 Vancomycin HCl 1 gm/Sodium Chloride 275 ml @ 183.708 mls/hr Q24H IVPB 09/25/19 18:00 10/03/19 23:59 09/25/19 17:39 Avril Zaragoza M.D. Sep 28, 2019 12:46
--- NOTE | 2019-09-28 13:48 | NUR ---
NURSE NOTES: Patient noted to be tachycardic 112-125. EKG ordered per Dr. Abbasi. Results reported to Dr. Abbasi. New order received to transfer to Telemetry.
--- NOTE | 2019-09-28 13:51 | Pulmonology Progress Note ---
Assessment/Plan Problems: (1) Sepsis (2) Healthcare-associated pneumonia (3) Tachycardia (4) C. difficile colitis (5) At high risk for aspiration (6) History of CVA (cerebrovascular accident) (7) Advanced dementia (8) G tube feedings (9) HTN (hypertension) Assessment/Plan still has diarrhea C-diff positive afebrile yesterday still on face mask Keep left chest elevated repeat CXR today respiratory treatment titrate fio2 to sat of 92% aspiration precaution dvt prophylaxis blood cultures are persistently positive, with different strains of coag negative staff Subjective ROS Limited/Unobtainable: No Constitutional: Reports: no symptoms HEENT: Repors: no symptoms Allergies: Coded Allergies: HYDROMORPHONE (Unverified Allergy, Unknown, 01/04/18) Objective Last 24 Hour Vital Signs Date Time Temp Pulse Resp B/P (MAP) Pulse Ox O2 Delivery O2 Flow Rate FiO2 09/28/19 12:50 91 Nasal Cannula 36.0 36 09/28/19 09:52 99.1 09/28/19 09:21 82 119/66 09/28/19 09:00 Nasal Cannula 2.0 Nasal Cannula 2.0 09/28/19 08:00 98.4 132 20 119/66 (83) 91 09/28/19 04:00 99.1 119 20 133/79 (97) 94 09/28/19 00:26 96 Nasal Cannula 2.0 28 09/28/19 00:00 99.1 111 18 132/95 (107) 94 09/27/19 21:00 Nasal Cannula 2.0 Nasal Cannula 2.0 09/27/19 20:00 99.1 106 20 132/91 (105) 97 09/27/19 16:00 98.9 99 20 130/97 (108) 95 99 Intake and Output 09/27/19 09/28/19 19:00 07:00 Intake Total 1100 ml 800 ml Output Total 1275 ml 500 ml Balance -175 ml 300 ml Intake Free Water 500 ml 250 ml Tube Feeding 600 ml 550 ml Output Urine Total 1275 ml 500 ml Objective General Appearance: cachetic HEENT: normocephalic, atraumatic Respiratory/Chest: chest wall non-tender, normal breath sounds Cardiovascular: normal rate, regular rhythm Abdomen: normal bowel sounds, soft, non tender Genitourinary: normal external genitalia Extremities: no cyanosis Skin: no rash, no lesions Current Medications Medications (Trade) Dose Ordered Sig/Nelson Route PRN Reason Start Time Stop Time Status Last Admin Dose Admin Acetaminophen (Tylenol) 650 mg Q4H PRN GT Mild Pain/Temp > 100.5 09/14/19 02:45 10/06/19 18:44 09/28/19 09:22 Amlodipine Besylate (Norvasc) 5 mg DAILY GT 09/14/19 09:00 10/07/19 08:59 09/28/19 09:21 Chlorhexidine Gluconate (Clara-Hex 2%) 1 applic DAILY@2000 TOPIC 09/23/19 20:00 10/23/19 19:59 09/26/19 20:48 Dextrose (Dextrose 50%) 25 ml Q30M PRN IV Hypoglycemia 09/14/19 02:30 10/06/19 17:59 Dextrose (Dextrose 50%) 50 ml Q30M PRN IV Hypoglycemia 09/14/19 02:30 10/06/19 17:59 Gabapentin (Neurontin) 250 mg TID GT 09/14/19 09:00 10/06/19 19:59 09/28/19 12:36 Insulin Aspart (NovoLOG) Q6HR SUBQ 09/14/19 06:00 10/07/19 00:00 09/28/19 12:37 Nitroglycerin (Ntg) 0.4 mg Q5M PRN SL Prn Chest Pain 09/14/19 02:15 10/06/19 15:59 Ondansetron HCl (Zofran) 4 mg Q6H PRN IVP Nausea & Vomiting 09/14/19 04:00 10/06/19 15:59 Polyethylene Glycol (Miralax) 17 gm DAILYPRN PRN GT Constipation 09/14/19 18:15 10/06/19 15:59 Sodium Chloride 1,000 ml @ 75 mls/hr [id number] IV 09/24/19 18:00 10/24/19 17:59 09/26/19 04:57 Vancomycin HCl (Firvanq) 125 mg FOUR TIMES A DAY ORAL 09/19/19 13:00 10/03/19 23:59 09/28/19 12:35 Vancomycin HCl (Vanco rx to dose) 1 ea DAILY PRN MISC Per rx protocol 09/14/19 09:00 12/13/19 15:59 Vancomycin HCl 1 gm/Sodium Chloride 275 ml @ 183.708 mls/hr Q24H IVPB 09/25/19 18:00 10/03/19 23:59 09/25/19 17:39 Sowmya Abbasi MD Sep 28, 2019 13:51
--- NOTE | 2019-09-28 13:56 | NUR ---
NURSE NOTES: RN called x2 for IJ placement, nothing done yet, Dr MARCUM notified.
--- NOTE | 2019-09-28 14:41 | NUR ---
NURSE NOTES: pt i9s awake and stable, HR 113 SPO2 90, pt transferred to TELE and report given to SERGIO AN.
--- NOTE | 2019-09-28 15:04 | NUR ---
NURSE NOTES:WOUND CARE FOLLOW-UP NOTES:Full thickness pressure injury L elbow resolving. Base of wound is moist and viable with trace amt Biofilm, surrounding dry pink epithelial borders.No odor or exudate noted.(L)0.5cm x (W)0.6cm. Incision R scapula resolving.No erythema or exudate noted 1.2cm in length. Sacral pressure injury resolving. [place] epithelial base with few scattered sheared areas.(L)6cm x (W)5.5cm.Surrounding hyperpigmentation. Dark discoloration without erythema ,induration or fluctuance noted to R buttocks(L)4cm x (W)3.5cm. Reabsorbing DTPI R heel extending into plantar aspect (L)7.5cm x (W)5cm.Periwound is intact without erythema or fluctuance. Reabsorbing DTPI L heel.(L)4.5cm x (W)5cm.Periwound without erythema or fluctuance. Stable dry eschar Lateral L foot (L)0.6cm x (W)1.6cm.Periwound without erythema or fluctuance. Wound Tx are effective and continued as ordered. All wound prevention protocols continued as care-planned.
[2019-09-28] MEDS ORDERED: Nitroglycerin Subl 0.4mg tab SL PRN (15:22)
[2019-09-28] MEDS ORDERED: Miralax 17gm pkt GT PRN (15:23)
--- NOTE | 2019-09-28 15:30 | NUR ---
NURSE NOTES: Received patient from Trenton Alexis. Patient being transferred to floor from med surg secondary to Tachycardia. Patient is awake, doesnt follow commands, occasionally tracks and focuses when spoken to. contracted X4 extremities. Patient on 4 L/min oxygen via nasal cannula with O2 Sat of 91% lung sounds ronchi all throughout. orally suctioned with thick white phlegm. OXygen improved 96%. patient SBP on the 80's. Temp 100.2 axillary. no IV access at this time. will attempt to obtain one. call out to Dr. Abbasi. awaiting call back. patient turned and repositioned for comfort. Fall precautions in placed. will follow.
[2019-09-28 16:00] VITALS: BP 94/45
--- NOTE | 2019-09-28 17:00 | NUR ---
NURSE NOTES: Unable to obtain IV access after several attempts from different nurses. IR called multiple times for central line placement. Dr. Abbasi updated re: patient status. B/P improving 90's to low 100's. temp improved after tylenol given now 99.8 axillary. Daughter in to see patient updated re: patient condition. wants patient to remain full code. Per Dr. Abbasi to contact Dr. Musa to insert central line. Call out to Dr. Musa. Will continue to monitor.
[2019-09-28] MEDS ORDERED: Vancomycin 1 GM in NS 275 ML IVPB SCH (18:00)
--- NOTE | 2019-09-28 19:15 | NUR ---
NURSE NOTES: Dr. Arias in to see patient. Left femoral TLC inserted at bedside. ok to use as per MD. will follow.
--- NOTE | 2019-09-28 19:26 | Operative Note - PDOC ---
Operative Note Operative Note Date of Operation/Procedure: Sep 28, 2019 Pre-op Diagnosis: Hypotension poor peripheral access Procedure: Left femoral central venous catheter insertion Post-op Diagnosis: same as pre-op Surgeon: Homar Arias MD Anesthesia: local Specimen: none Complications: none Condition: stable Estimated Blood Loss: minimal Drains: none Implant(s) used?: No Indications for Procedure This is a 79-year-old male currently hospitalized who has slightly decompensated now with hypotension requiring IV fluids but unfortunately has poor peripheral access. Multiple times by nursing staff to place peripheral access unsuccessful. Surgery was called to evaluate and assist with care. Central venous catheter indicated and recommended. Procedure fairly urgent given patient with IV access hypotensive dehydrated requiring fluids. Patient full code. Description of Procedure Patient was made comfortable at the bedside. The left groin is prepped draped in the same surgical fashion. Local anesthetic was infiltrated in the proposed needle site and tunnel tract. Anatomical rivera were identified. A finder needle was used in the left femoral vein was cannulated on second stick without complication. Good venous flow identified. Guidewire placed over needle needle removed. Small skin incision made around the guidewire. Dilator used. A triple-lumen central venous catheter was inserted over the guidewire without complication. Guidewire was removed and discarded. All 3 ports flushed and aspirated without complication. Line sutured in place. Dressings applied. Patient taught procedure well. Line ready for use. Thank you for allowing participate in patient's care Homar Arias Sep 28, 2019 19:26
[2019-09-28 20:00] VITALS: BP 95/49
--- NOTE | 2019-09-28 20:22 | NUR ---
HAND-OFF: Report given to Trenton Panda. Plan of care endorsed.
--- NOTE | 2019-09-28 20:30 | NUR ---
NURSE NOTES: Received report from Daysi Devlin RN. Patient in bed asleep with no complaints of acute pain or discomfort noted at this time. Kept clean, dry, and comfortable in bed. Patient is incontinent X1 with FC in place for retention; tubing intact and patent. Cleaned and changed QS and PRN when soiled. Newly inserted Central line intact and patent with fluids running as ordered. Safety precaution in place; siderails X2 up, call light within reach, bed in lowest position, brakes and alarm on at all times. Needs and wants anticipated and attended. Will continue plan of care. WC implemented, turned Q2. On GTF as ordered, tolerating well with no A/R noted.
[2019-09-28] MEDS: Dyna-Hex 2% Top Sol 2oz TOPIC SCH (22:08)
[2019-09-29] VITALS: BP 129/61
[2019-09-29] MEDS: NovoLOG Insulin Flexpen SUBQ SCH ×4 (01:24→17:43)
[2019-09-29 04:00] VITALS: BP 124/61
--- NOTE | 2019-09-29 07:40 | NUR ---
NURSE NOTES: Nurse report given by SERGIO Panda. Patient's awake in bed, eyes open spontaneously, nonverbal, AO x1, no s/s of distress or SOB. Bed low and locked, call light within reach, bed rails x 3, bed alarm is armed, on air mattress, cardiac nurse practitioner applied. Wounds noted. Benavidez is noted, draining well. IV is running fluid, no s/s of tenderness or infiltration. PICC line 3 lumens noted, patent and asymptomatic, no s/s of bleeding or infection. In contact isolation room. [facility]
--- NOTE | 2019-09-29 07:43 | NUR ---
HAND-OFF: Report given to Chana Priest RN. Patient in bed with no S/S of distress. Endorsed plan of care.
[2019-09-29 08:00] VITALS: BP 148/67
[2019-09-29] MEDS: Gabapentin 300 MG/6 ML Soln GT SCH ×3 (08:41→17:43)
[2019-09-29] MEDS: Vancomycin oral 125mg/2.5ml ORAL SCH ×4 (08:41→22:06)
[2019-09-29] MEDS: Acetaminophen 650mg/20.3ml GT PRN (08:42)
--- NOTE | 2019-09-29 08:42 | NUR ---
NURSE NOTES: Patient's having fever of 101.5. Gave 650mg Acetaminophen GT. Assessed patient and noted diaphoresis, especially on face, forehead and chest, warm to touch. Applied ice pack around armpits, uncovered the blanket. Reassessed at 0916 and patient's temperature has decreased to 99.7, rechecked on both axillary and oral. Will continue to monitor closely.
[2019-09-29 09:18] LABS: ANION GAP 6 mmol/L (5-15); BLOOD UREA NITROGEN 32 mg/dL (7-18); CALCIUM 8.6 MG/DL (8.5-10.1); CARBON DIOXIDE 28 MMOL/L (21-32); CHLORIDE 104 MMOL/L (98-107); CREATININE 0.6 MG/DL (0.55-1.30); POTASSIUM 4.5 MMOL/L (3.5-5.1); SODIUM 138 MMOL/L (136-145)
[2019-09-29 09:31] LABS: BASOPHILS % (AUTO) 0.4 % (0.0-2.0); EOSINOPHILS % (AUTO) 0.6 % (0.0-3.0); HEMATOCRIT 28.4 % (42.0-52.0); HEMOGLOBIN 9.1 G/DL (14.2-18.0); LYMPHOCYTES % (AUTO) 10.7 % (20.0-45.0); MEAN CORPUSCULAR VOLUME 96 FL (80-99); MONOCYTES % (AUTO) 4.9 % (1.0-10.0); NEUTROPHILS % (AUTO) 83.5 % (45.0-75.0); PLATELET COUNT 578 K/UL (150-450); RED BLOOD COUNT 2.96 M/UL (4.70-6.10); RED CELL DISTRIBUTION WIDTH 14.3 % (11.6-14.8); WHITE BLOOD COUNT 9.4 K/UL (4.8-10.8)
[2019-09-29 12:00] VITALS: BP 123/52
[2019-09-29] MEDS ORDERED: Vancomycin 1.25gm/NS Premix q24h IVPB SCH (13:00)
[2019-09-29] MEDS ORDERED: Vancomycin 1 GM in NS 275 ML IVPB SCH (13:00)
--- NOTE | 2019-09-29 13:14 | NUR ---
CASE MANAGEMENT:REVIEW 09/29/19 SI: PNA. BACTEREMIA 1001. 117 20 123/52 96% ON 2L NC H/H 9.1/28.4 BUN 32 IS: IVF NS @75ML/HR IV VANCOMYCIN X1 VANCOMYCIN HCL GT QID NORVASC GT QD NEURONTIN GT TID NOVOLOG SQ Q6HR : 2E TELE UNIT DCP: [facility] PLAN: CONTROL FEVER 24HS CONTROL DIARRHEA LEFT FEMORAL CENTRAL VENOUS CATHETER INSERTION 09/28/19 Addendum: 09/29/19 at 1332 by TRAY ESPINO LVN PATIENT TRANSFERRED TO TELE FOR HIGH FEVER AND HIGH HEART RATES
--- NOTE | 2019-09-29 13:26 | Pulmonology Progress Note ---
Assessment/Plan Problems: (1) Sepsis (2) Healthcare-associated pneumonia (3) Tachycardia (4) C. difficile colitis (5) At high risk for aspiration (6) History of CVA (cerebrovascular accident) (7) Advanced dementia (8) G tube feedings (9) HTN (hypertension) Assessment/Plan still tachy and low grade fever still has diarrhea C-diff positive afebrile yesterday still on face mask Keep left chest elevated repeat CXR today respiratory treatment titrate fio2 to sat of 92% aspiration precaution dvt prophylaxis family doesn't want to consider comfort measures. since pts is still awake and can communicate with them. Subjective ROS Limited/Unobtainable: No Constitutional: Reports: no symptoms HEENT: Repors: no symptoms Respiratory: Reports: no symptoms Allergies: Coded Allergies: HYDROMORPHONE (Unverified Allergy, Unknown, 01/04/18) Objective Last 24 Hour Vital Signs Date Time Temp Pulse Resp B/P (MAP) Pulse Ox O2 Delivery O2 Flow Rate FiO2 09/29/19 12:00 100.1 117 20 123/52 (75) 96 09/29/19 11:04 Nasal Cannula 2.0 Nasal Cannula 2.0 09/29/19 09:49 99.7 09/29/19 09:00 Nasal Cannula 4.0 Nasal Cannula 2.0 09/29/19 08:41 122 148/67 09/29/19 08:00 115 09/29/19 08:00 99.7 122 21 148/67 (94) 96 09/29/19 06:48 97 Nasal Cannula 3.0 36 09/29/19 04:00 100.4 109 20 124/61 (82) 97 09/29/19 04:00 111 09/29/19 00:00 97.9 116 20 129/61 (83) 96 09/29/19 00:00 109 09/28/19 22:18 96 Nasal Cannula 3.0 36 09/28/19 21:00 Nasal Cannula 2.0 Nasal Cannula 2.0 09/28/19 20:00 98.4 103 20 95/49 (64) 97 09/28/19 20:00 120 09/28/19 20:00 93 Nasal Cannula 2.0 28 09/28/19 16:00 100.2 102 20 94/45 (61) 96 09/28/19 16:00 111 Intake and Output 09/28/19 09/29/19 19:00 07:00 Intake Total 640 ml Output Total 500 ml 600 ml Balance 140 ml -600 ml Intake Oral 140 ml Free Water 150 ml Tube Feeding 350 ml Output Urine Total 500 ml 600 ml # Voids 1 Objective General Appearance: cachetic HEENT: normocephalic, atraumatic Respiratory/Chest: chest wall non-tender, normal breath sounds Cardiovascular: normal rate, regular rhythm Abdomen: normal bowel sounds, soft, non tender Genitourinary: normal external genitalia Extremities: no cyanosis Skin: no rash, no lesions Laboratory Tests 09/29/19 08:45: White Blood Count 9.4, Red Blood Count 2.96L, Hemoglobin 9.1L, Hematocrit 28.4L , Mean Corpuscular Volume 96, Mean Corpuscular Hemoglobin 30.6, Mean Corpuscular Hemoglobin Concent 31.9L, Red Cell Distribution Width 14.3, Platelet Count 578H, Mean Platelet Volume 6.2L, Neutrophils (%) (Auto) 83.5H, Lymphocytes (%) (Auto) 10.7L, Monocytes (%) (Auto) 4.9, Eosinophils (%) (Auto) 0.6, Basophils (%) (Auto) 0.4, Sodium Level 138, Potassium Level 4.5, Chloride Level 104, Carbon Dioxide Level 28, Anion Gap 6, Blood Urea Nitrogen 32H, Creatinine 0.6, Estimat Glomerular Filtration Rate , Glucose Level 133H, Calcium Level 8.6 Current Medications Medications (Trade) Dose Ordered Sig/Nelson Route PRN Reason Start Time Stop Time Status Last Admin Dose Admin Acetaminophen (Tylenol) 650 mg Q4H PRN GT Mild Pain/Temp > 100.5 09/28/19 15:22 10/28/19 15:21 09/29/19 08:42 Amlodipine Besylate (Norvasc) 5 mg DAILY GT 09/29/19 09:00 10/07/19 08:59 09/29/19 08:41 Chlorhexidine Gluconate (Clara-Hex 2%) 1 applic DAILY@1999 TOPIC 09/28/19 20:00 10/23/19 19:59 09/28/19 22:08 Dextrose (Dextrose 50%) 25 ml Q30M PRN IV Hypoglycemia 09/28/19 15:30 10/06/19 17:59 Dextrose (Dextrose 50%) 50 ml Q30M PRN IV Hypoglycemia 09/28/19 15:30 10/06/19 17:59 Gabapentin (Neurontin) 250 mg TID GT 09/28/19 18:00 10/06/19 19:59 09/29/19 12:18 Insulin Aspart (NovoLOG) Q6HR SUBQ 09/28/19 18:00 10/07/19 00:00 09/29/19 12:23 Nitroglycerin (Ntg) 0.4 mg Q5M PRN SL Prn Chest Pain 09/28/19 15:22 10/28/19 15:21 Ondansetron HCl (Zofran) 4 mg Q6H PRN IVP Nausea & Vomiting 09/28/19 15:23 10/28/19 15:22 Polyethylene Glycol (Miralax) 17 gm DAILYPRN PRN GT Constipation 09/28/19 15:23 10/28/19 15:22 Sodium Chloride 1,000 ml @ 75 mls/hr [id number] IV 09/28/19 15:22 10/28/19 15:21 09/29/19 12:41 Vancomycin HCl (Firvanq) 125 mg FOUR TIMES A DAY ORAL 09/28/19 18:00 10/03/19 23:59 09/29/19 12:18 Vancomycin HCl (Vanco rx to dose) 1 ea DAILY PRN MISC Per rx protocol 09/29/19 09:00 10/06/19 15:59 Vancomycin HCl 1 gm/Sodium Chloride 275 ml @ 183.708 mls/hr Q24H IVPB 09/30/19 13:00 10/05/19 12:59 Vancomycin/Sodium Chloride 275 ml @ 183.333 mls/hr ONCE IVPB 09/29/19 13:00 09/29/19 14:00 09/29/19 12:41 Sowmya Abbasi MD Sep 29, 2019 13:26
--- NOTE | 2019-09-29 13:40 | Infectious Diseases Prog Note ---
Assessment/Plan Assessment/Plan 79yo gentleman with PMH below presents from group home for hypoxia and report of cough. Pt was recently admitted at this hospital 08/15-08/22 for sepsis 2/2 R shoulder abscess. Pt was discharged on zosyn and vancomycin. Pt unable to provide history. Per group home records, they were concerned for pneumonia. Pt was started on levaquin/flagyl early August. Fever; low grade; improving Leukopenia, SP No lactic acidosis -09/24 u/a wbc 5-10; ucx <10k yeast Bcx NTD Pseudomonas PNA, sp Rx -09/24 CXR: Interval improvement in the left lower lobe and bilateral upper lobe interstitial thickening. There is a persistent heterogeneous retrocardiac airspace opacity. No pleural effusion or pneumothorax. Heart size is normal. -09/18 CT chest: Combination of atelectasis and dense pneumonia involving the left lower lobe. Please correlate clinically. Additional patchy groundglass infiltrates in both upper lobes also present. Atherosclerotic disease. Acute hypoxic respiratory failure on nasal cannula supplement CXR: Pneumonia versus atelectasis at the left lung base. sputum cx: Pseudomonas 09/11 CXR: New right suprahilar and increasing left basilar infiltrates, since prior study of 5 days earlier 09/15 CXR: Increased left mid and lower lung patchy atelectasis and/or consolidation Unlikely UTI UA negative Persistent CoNS bacteremia, albeit diff species. 2/2 pressure ulcers? shoulder abscess? cervical spine prosthetic infection? R shoulder osteomyelitis? 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 Thickened mitral valve leaflets with normal excursion. Mitral annulus and aortic root calcification. Pulmonic valve not visualized. Normal tricuspid valve structure. 09/13 UE/LE duplex: negative for DVT 09/13 bcx: ngtd 09/14 BCx: NTD h/o Staph capitis(CoNS) bacteremia 08/15 08/16 BCx: NG h/o R shoulder abscess 09/18 CT shoulder: No evidence of abscess. 08/20 cx: Proteus, CoNS 09/13 CT shoulder: Since 08/22/2019, previously demonstrated right posterior shoulder superficial wound is largely closed. There is some residual gas and what appears to be scar tissue in the area. No definite abscess currently, although evaluation for such is limited in the absence of IV contrast. Multifocal bilateral pulmonary parenchymal infiltrates, presumably pneumonia, are noted. Extensive heterotopic new bone surrounding the right shoulder is again demonstrated. Correlate with clinical history. Evidence of prior cervical spine fusion surgery. MRSA screen negative HTN FTT Anemia CVA Aphasia G tube malfunction BPH DM Bedbound OA Dementia NH resident DNR Plan: Contine IV vanc # Cont PO Vancomycin 125mg qid #08/07 09/25 SP Meropenem #15 09/11 SP cefepime #5 f/u repeat bcx aspiration precaution, elevate HOB G tube care skin care at this point, concerning for infection of L knee prosthetic and/or neck prosthesis. once pneumonia improves, will obtain indium scan to evaluate previous cervical spine fusion surgery site and the R shoulder in the setting of persistent GPC bacteremia. if we obtain indium scan now, likely the lungs will light up. u/a w reflex, Bcx x2 Thank you for this consult. [facility] will continue to follow the patient with you. Subjective Allergies: Coded Allergies: HYDROMORPHONE (Unverified Allergy, Unknown, 01/04/18) Subjective Tm 100.4 no leukocytosis Objective Vital Signs Last 24 Hour Vital Signs Date Time Temp Pulse Resp B/P (MAP) Pulse Ox O2 Delivery O2 Flow Rate FiO2 09/29/19 12:00 100.1 117 20 123/52 (75) 96 09/29/19 11:04 Nasal Cannula 2.0 Nasal Cannula 2.0 09/29/19 09:49 99.7 09/29/19 09:00 Nasal Cannula 4.0 Nasal Cannula 2.0 09/29/19 08:41 122 148/67 09/29/19 08:00 115 09/29/19 08:00 99.7 122 21 148/67 (94) 96 09/29/19 06:48 97 Nasal Cannula 3.0 36 09/29/19 04:00 100.4 109 20 124/61 (82) 97 09/29/19 04:00 111 09/29/19 00:00 97.9 116 20 129/61 (83) 96 12/6/19 00:00 109 09/28/19 22:18 96 Nasal Cannula 3.0 36 09/28/19 21:00 Nasal Cannula 2.0 Nasal Cannula 2.0 09/28/19 20:00 98.4 103 20 95/49 (64) 97 09/28/19 20:00 120 09/28/19 20:00 93 Nasal Cannula 2.0 28 09/28/19 16:00 100.2 102 20 94/45 (61) 96 09/28/19 16:00 111 Height (Feet): 5 Height (Inches): 11.00 Weight (Pounds): 164 Objective General Appearance: cachetic HEENT: normocephalic, atraumatic Respiratory/Chest: chest wall non-tender, normal breath sounds Cardiovascular: normal rate, regular rhythm Abdomen: normal bowel sounds, soft, non tender Genitourinary: normal external genitalia Extremities: no cyanosis Skin: no rash, no lesions Laboratory Tests Test 09/29/19 08:45 White Blood Count 9.4 K/UL (4.8-10.8) Red Blood Count 2.96 M/UL (4.70-6.10) L Hemoglobin 9.1 G/DL (14.2-18.0) L Hematocrit 28.4 % (42.0-52.0) L Mean Corpuscular Volume 96 FL (80-99) Mean Corpuscular Hemoglobin 30.6 PG (27.0-31.0) Mean Corpuscular Hemoglobin Concent 31.9 G/DL (32.0-36.0) L Red Cell Distribution Width 14.3 % (11.6-14.8) Platelet Count 578 K/UL (150-450) H Mean Platelet Volume 6.2 FL (6.5-10.1) L Neutrophils (%) (Auto) 83.5 % (45.0-75.0) H Lymphocytes (%) (Auto) 10.7 % (20.0-45.0) L Monocytes (%) (Auto) 4.9 % (1.0-10.0) Eosinophils (%) (Auto) 0.6 % (0.0-3.0) Basophils (%) (Auto) 0.4 % (0.0-2.0) Sodium Level 138 MMOL/L (136-145) Potassium Level 4.5 MMOL/L (3.5-5.1) Chloride Level 104 MMOL/L (98-107) Carbon Dioxide Level 28 MMOL/L (21-32) Anion Gap 6 mmol/L (5-15) Blood Urea Nitrogen 32 mg/dL (7-18) H Creatinine 0.6 MG/DL (0.55-1.30) Estimat Glomerular Filtration Rate mL/min (>60) Glucose Level 133 MG/DL (74-106) H Calcium Level 8.6 MG/DL (8.5-10.1) Current Medications Medications (Trade) Dose Ordered Sig/Nelson Route PRN Reason Start Time Stop Time Status Last Admin Dose Admin Acetaminophen (Tylenol) 650 mg Q4H PRN GT Mild Pain/Temp > 100.5 09/28/19 15:22 10/28/19 15:21 09/29/19 08:42 Amlodipine Besylate (Norvasc) 5 mg DAILY GT 09/29/19 09:00 10/07/19 08:59 09/29/19 08:41 Chlorhexidine Gluconate (Clara-Hex 2%) 1 applic DAILY@1999 TOPIC 09/28/19 20:00 10/23/19 19:59 09/28/19 22:08 Dextrose (Dextrose 50%) 25 ml Q30M PRN IV Hypoglycemia 09/28/19 15:30 10/06/19 17:59 Dextrose (Dextrose 50%) 50 ml Q30M PRN IV Hypoglycemia 09/28/19 15:30 10/06/19 17:59 Gabapentin (Neurontin) 250 mg TID GT 09/28/19 18:00 10/06/19 19:59 09/29/19 12:18 Insulin Aspart (NovoLOG) Q6HR SUBQ 09/28/19 18:00 10/07/19 00:00 09/29/19 12:23 Nitroglycerin (Ntg) 0.4 mg Q5M PRN SL Prn Chest Pain 09/28/19 15:22 10/28/19 15:21 Ondansetron HCl (Zofran) 4 mg Q6H PRN IVP Nausea & Vomiting 09/28/19 15:23 10/28/19 15:22 Polyethylene Glycol (Miralax) 17 gm DAILYPRN PRN GT Constipation 09/28/19 15:23 10/28/19 15:22 Sodium Chloride 1,000 ml @ 75 mls/hr [id number] IV 09/28/19 15:22 10/28/19 15:21 09/29/19 12:41 Vancomycin HCl (Firvanq) 125 mg FOUR TIMES A DAY ORAL 09/28/19 18:00 10/03/19 23:59 09/29/19 12:18 Vancomycin HCl (Vanco rx to dose) 1 ea DAILY PRN MISC Per rx protocol 09/29/19 09:00 10/06/19 15:59 Vancomycin HCl 1 gm/Sodium Chloride 275 ml @ 183.708 mls/hr Q24H IVPB 09/30/19 13:00 10/05/19 12:59 Vancomycin/Sodium Chloride 275 ml @ 183.333 mls/hr ONCE IVPB 09/29/19 13:00 09/29/19 14:00 09/29/19 12:41 Avril Zaragoza M.D. Sep 29, 2019 13:40
--- NOTE | 2019-09-29 13:47 | Cardiology Report ---
APPROVED REPORT EKG Measurement Heart [id number] FL [id number] Sinus tachycardia Left axis deviation Abnormal ECG
[2019-09-29 16:00] VITALS: BP 155/62
--- NOTE | 2019-09-29 19:24 | NUR ---
HAND-OFF: Report given to Farzad. SERGIO. Patient's stable. Plan of care endorsed. .
--- NOTE | 2019-09-29 19:26 | NUR ---
NURSE NOTES: Received report from Mayra Priets RN. Patient in bed asleep with no complaints of acute pain or discomfort noted at this time. Kept clean, dry, and comfortable in bed. Patient is incontinent X2 with FC in place for retention; tubing intact and patent. Cleaned and changed QS and PRN when soiled. Newly inserted Central line intact and patent with fluids running as ordered. Safety precaution in place; siderails X2 up, call light within reach, bed in lowest position, brakes and alarm on at all times. Needs and wants anticipated and attended. Will continue plan of care. DVT PPX active
[2019-09-29 20:00] VITALS: BP 115/55
[2019-09-29] MEDS: Dyna-Hex 2% Top Sol 2oz TOPIC SCH (22:06)
[2019-09-29] MEDS: Heparin 5000 units/ml inj SUBQ SCH (22:07)
[2019-09-30] VITALS: BP 122/62
[2019-09-30 04:00] VITALS: BP 129/68
[2019-09-30] MEDS: NovoLOG Insulin Flexpen SUBQ SCH ×4 (06:00→17:16)
--- NOTE | 2019-09-30 07:00 | NUR ---
HAND-OFF: Report given to SERGIO Ho. Plan of care endorsed, patient's stable. .
--- NOTE | 2019-09-30 07:10 | NUR ---
NURSE NOTES: Nurse report given by SERGIO Panda. Patient's in stable condition, AO x1, eyes open spontaneously, no s/s of distress or SOB. Bed low and locked, call light within reach, side rails x 2, bed alarm is on, diagnostic cardiac sonographer applied, air mattress is running, renner catheter is intact, draining well. Wounds noted, IV is running fluid, no s/s of tenderness or infiltration. Patient's on 4L of nasal cannula with humidifier. Will continue to monitor.
--- NOTE | 2019-09-30 07:20 | NUR ---
HAND-OFF: Report given to Mayra Priest RN. Patient in bed with no S/S of distress. Endorsed plan of care.
[2019-09-30 08:00] VITALS: BP 136/68
[2019-09-30] MEDS: Gabapentin 300 MG/6 ML Soln GT SCH ×3 (08:38→17:16)
[2019-09-30] MEDS: Vancomycin oral 125mg/2.5ml ORAL SCH ×4 (08:38→20:35)
[2019-09-30] MEDS: Heparin 5000 units/ml inj SUBQ SCH ×2 (08:40→20:37)
[2019-09-30 12:00] VITALS: BP 145/63
--- NOTE | 2019-09-30 12:30 | Infectious Diseases Prog Note ---
Assessment/Plan Assessment/Plan 79yo gentleman with PMH below presents from [facility] for hypoxia and report of cough. Pt was recently admitted at this hospital 08/15-08/22 for sepsis 2/2 R shoulder abscess. Pt was discharged on zosyn and vancomycin. Pt unable to provide history. Per custodial records, they were concerned for pneumonia. Pt was started on levaquin/flagyl early August. Fever; low grade; improving Leukopenia, SP No lactic acidosis -09/24 u/a wbc 5-10; ucx <10k yeast Bcx Neg Pseudomonas PNA, sp Rx -09/24 CXR: Interval improvement in the left lower lobe and bilateral upper lobe interstitial thickening. There is a persistent heterogeneous retrocardiac airspace opacity. No pleural effusion or pneumothorax. Heart size is normal. -09/18 CT chest: Combination of atelectasis and dense pneumonia involving the left lower lobe. Please correlate clinically. Additional patchy groundglass infiltrates in both upper lobes also present. Atherosclerotic disease. Acute hypoxic respiratory failure on nasal cannula supplement CXR: Pneumonia versus atelectasis at the left lung base. sputum cx: Pseudomonas 09/11 CXR: New right suprahilar and increasing left basilar infiltrates, since prior study of 5 days earlier 09/15 CXR: Increased left mid and lower lung patchy atelectasis and/or consolidation Unlikely UTI UA negative Persistent CoNS bacteremia, albeit diff species. 2/2 pressure ulcers? shoulder abscess? cervical spine prosthetic infection? R shoulder osteomyelitis? 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 Thickened mitral valve leaflets with normal excursion. Mitral annulus and aortic root calcification. Pulmonic valve not visualized. Normal tricuspid valve structure. 09/13 UE/LE duplex: negative for DVT 09/13 bcx: ngtd 09/14 BCx: NTD h/o Staph capitis(CoNS) bacteremia 08/15 08/16 BCx: NG h/o R shoulder abscess 09/18 CT shoulder: No evidence of abscess. 08/20 cx: Proteus, CoNS 09/13 CT shoulder: Since 08/22/2019, previously demonstrated right posterior shoulder superficial wound is largely closed. There is some residual gas and what appears to be scar tissue in the area. No definite abscess currently, although evaluation for such is limited in the absence of IV contrast. Multifocal bilateral pulmonary parenchymal infiltrates, presumably pneumonia, are noted. Extensive heterotopic new bone surrounding the right shoulder is again demonstrated. Correlate with clinical history. Evidence of prior cervical spine fusion surgery. MRSA screen negative HTN FTT Anemia CVA Aphasia G tube malfunction BPH DM Bedbound OA Dementia NH resident DNR Plan: Contine IV vanc # Cont PO Vancomycin 125mg qid #09/07 09/25 SP Meropenem #15 09/11 SP cefepime #5 f/u repeat bcx aspiration precaution, elevate HOB G tube care skin care at this point, concerning for infection of L knee prosthetic and/or neck prosthesis. once pneumonia improves, will obtain indium scan to evaluate previous cervical spine fusion surgery site and the R shoulder in the setting of persistent GPC bacteremia. if we obtain indium scan now, likely the lungs will light up. u/a w reflex, Bcx x2 Thank you for this consult. [facility] will continue to follow the patient with you. Subjective Allergies: Coded Allergies: HYDROMORPHONE (Unverified Allergy, Unknown, 01/04/18) Subjective afebrile >24hrs no leukocytosis Objective Vital Signs Last 24 Hour Vital Signs Date Time Temp Pulse Resp B/P (MAP) Pulse Ox O2 Delivery O2 Flow Rate FiO2 09/30/19 09:20 Nasal Cannula 2.0 Nasal Cannula 2.0 09/30/19 08:39 107 136/68 09/30/19 08:18 94 Nasal Cannula 2.0 28 09/30/19 08:14 Nasal Cannula 2.0 Nasal Cannula 2.0 09/30/19 08:00 98.4 107 20 136/68 (90) 99 09/30/19 08:00 99 09/30/19 04:00 100 09/30/19 04:00 98.2 108 21 129/68 (88) 94 09/30/19 00:00 104 09/30/19 00:00 97.7 108 19 122/62 (82) 95 09/29/19 20:47 Nasal Cannula 2.0 Nasal Cannula 2.0 09/29/19 20:00 114 09/29/19 20:00 98.4 119 19 115/55 (75) 100 09/29/19 16:00 126 09/29/19 16:00 98.2 129 21 155/62 (93) 95 Height (Feet): 5 Height (Inches): 11.00 Weight (Pounds): 164 Objective General Appearance: cachetic HEENT: normocephalic, atraumatic Respiratory/Chest: chest wall non-tender, normal breath sounds Cardiovascular: normal rate, regular rhythm Abdomen: normal bowel sounds, soft, non tender Genitourinary: normal external genitalia Extremities: no cyanosis Skin: no rash, no lesions Current Medications Medications (Trade) Dose Ordered Sig/Nelson Route PRN Reason Start Time Stop Time Status Last Admin Dose Admin Acetaminophen (Tylenol) 650 mg Q4H PRN GT Mild Pain/Temp > 100.5 09/28/19 15:22 10/28/19 15:21 09/29/19 08:42 Amlodipine Besylate (Norvasc) 5 mg DAILY GT 09/29/19 09:00 10/07/19 08:59 09/30/19 08:39 Chlorhexidine Gluconate (Clara-Hex 2%) 1 applic DAILY@2000 TOPIC 09/28/19 20:00 10/23/19 19:59 09/29/19 22:06 Dextrose (Dextrose 50%) 25 ml Q30M PRN IV Hypoglycemia 09/28/19 15:30 10/06/19 17:59 Dextrose (Dextrose 50%) 50 ml Q30M PRN IV Hypoglycemia 09/28/19 15:30 10/06/19 17:59 Gabapentin (Neurontin) 250 mg TID GT 09/28/19 18:00 10/06/19 19:59 09/30/19 12:14 Heparin Sodium (Porcine) (Heparin 5000 units/ml) 5,000 units EVERY 12 HOURS SUBQ 09/29/19 21:00 10/29/19 20:59 09/30/19 08:40 Insulin Aspart (NovoLOG) Q6HR SUBQ 09/28/19 18:00 10/07/19 00:00 09/30/19 12:15 Nitroglycerin (Ntg) 0.4 mg Q5M PRN SL Prn Chest Pain 09/28/19 15:22 10/28/19 15:21 Ondansetron HCl (Zofran) 4 mg Q6H PRN IVP Nausea & Vomiting 09/28/19 15:23 10/28/19 15:22 Polyethylene Glycol (Miralax) 17 gm DAILYPRN PRN GT Constipation 09/28/19 15:23 10/28/19 15:22 Sodium Chloride 1,000 ml @ 75 mls/hr [id number] IV 09/28/19 15:22 10/28/19 15:21 09/30/19 06:33 Vancomycin HCl (Firvanq) 125 mg FOUR TIMES A DAY ORAL 09/28/19 18:00 10/03/19 23:59 09/30/19 12:14 Vancomycin HCl (Vanco rx to dose) 1 ea DAILY PRN MISC Per rx protocol 09/29/19 09:00 10/06/19 15:59 Vancomycin HCl 1 gm/Sodium Chloride 275 ml @ 183.708 mls/hr Q24H IVPB 09/30/19 13:00 10/05/19 12:59 Avril Zaragoza M.D. Sep 30, 2019 12:30
[2019-09-30] MEDS: Vancomycin 1 GM in NS 275 ML IVPB SCH (13:15)
[2019-09-30 15:35] VITALS: BP 144/72
--- NOTE | 2019-09-30 19:15 | NUR ---
NURSE NOTES: Received patient from SERGIO Butt, patient in stable condition, alert, not oriented, responsive to stimuli, severely contracted bilateral upper extremities, on O2 n/c 2L w/humidifier, gtube patent, stoma intact, left femoral central line with triple-lumen central venous catheter, all 3 ports flushed and aspirated without complication, F/C fr.16, patent, draining to gravity, bed low&locked, side rails up x3, call light within reach, will continue to monitor and reassess
[2019-09-30 20:00] VITALS: BP 108/52
[2019-09-30] MEDS: Dyna-Hex 2% Top Sol 2oz TOPIC SCH (20:35)
--- NOTE | 2019-09-30 21:05 | Pulmonology Progress Note ---
Assessment/Plan Problems: (1) Sepsis (2) Healthcare-associated pneumonia (3) Tachycardia (4) C. difficile colitis (5) At high risk for aspiration (6) History of CVA (cerebrovascular accident) (7) Advanced dementia (8) G tube feedings (9) HTN (hypertension) Assessment/Plan getting better afebrile yesterday still on face mask Keep left chest elevated repeat CXR today respiratory treatment titrate fio2 to sat of 92% aspiration precaution dvt prophylaxis family doesn't want to consider comfort measures. since pts is still awake and can communicate with them. Subjective Interval Events: awake, looks comfortable Allergies: Coded Allergies: HYDROMORPHONE (Unverified Allergy, Unknown, 01/04/18) Objective Last 24 Hour Vital Signs Date Time Temp Pulse Resp B/P (MAP) Pulse Ox O2 Delivery O2 Flow Rate FiO2 09/30/19 19:27 96 Nasal Cannula 2.0 28 09/30/19 16:00 94 09/30/19 15:35 98.2 108 22 144/72 (96) 98 09/30/19 12:00 105 09/30/19 12:00 99.1 108 21 145/63 (90) 99 09/30/19 09:20 Nasal Cannula 2.0 Nasal Cannula 2.0 09/30/19 08:39 107 136/68 09/30/19 08:18 94 Nasal Cannula 2.0 28 09/30/19 08:14 Nasal Cannula 2.0 Nasal Cannula 2.0 09/30/19 08:00 98.4 107 20 136/68 (90) 99 09/30/19 08:00 99 09/30/19 04:00 100 09/30/19 04:00 98.2 108 21 129/68 (88) 94 09/30/19 00:00 104 09/30/19 00:00 97.7 108 19 122/62 (82) 95 Intake and Output 09/29/19 09/30/19 19:00 07:00 Intake Total 550 ml Output Total 625 ml 1000 ml Balance -75 ml -1000 ml Tube Feeding 550 ml Output Urine Total 625 ml 1000 ml # Bowel Movements 2 1 Objective General Appearance: cachetic HEENT: normocephalic, atraumatic Respiratory/Chest: chest wall non-tender, normal breath sounds Cardiovascular: normal rate, regular rhythm Abdomen: normal bowel sounds, soft, non tender Genitourinary: normal external genitalia Extremities: no cyanosis Skin: no rash, no lesions Current Medications Medications (Trade) Dose Ordered Sig/Nelson Route PRN Reason Start Time Stop Time Status Last Admin Dose Admin Acetaminophen (Tylenol) 650 mg Q4H PRN GT Mild Pain/Temp > 100.5 09/28/19 15:22 10/28/19 15:21 09/29/19 08:42 Amlodipine Besylate (Norvasc) 5 mg DAILY GT 09/29/19 09:00 10/07/19 08:59 09/30/19 08:39 Chlorhexidine Gluconate (Clraa-Hex 2%) 1 applic DAILY@2000 TOPIC 09/28/19 20:00 10/23/19 19:59 09/30/19 20:35 Dextrose (Dextrose 50%) 25 ml Q30M PRN IV Hypoglycemia 09/28/19 15:30 10/06/19 17:59 Dextrose (Dextrose 50%) 50 ml Q30M PRN IV Hypoglycemia 09/28/19 15:30 10/06/19 17:59 Gabapentin (Neurontin) 250 mg TID GT 09/28/19 18:00 10/06/19 19:59 09/30/19 17:16 Heparin Sodium (Porcine) (Heparin 5000 units/ml) 5,000 units EVERY 12 HOURS SUBQ 09/29/19 21:00 10/29/19 20:59 09/30/19 20:37 Insulin Aspart (NovoLOG) Q6HR SUBQ 09/28/19 18:00 10/07/19 00:00 09/30/19 12:15 Nitroglycerin (Ntg) 0.4 mg Q5M PRN SL Prn Chest Pain 09/28/19 15:22 10/28/19 15:21 Ondansetron HCl (Zofran) 4 mg Q6H PRN IVP Nausea & Vomiting 09/28/19 15:23 10/28/19 15:22 Polyethylene Glycol (Miralax) 17 gm DAILYPRN PRN GT Constipation 09/28/19 15:23 10/28/19 15:22 Sodium Chloride 1,000 ml @ 75 mls/hr [id number] IV 09/28/19 15:22 10/28/19 15:21 09/30/19 20:34 Vancomycin HCl (Firvanq) 125 mg FOUR TIMES A DAY ORAL 09/28/19 18:00 10/03/19 23:59 09/30/19 20:35 Vancomycin HCl (Vanco rx to dose) 1 ea DAILY PRN MISC Per rx protocol 09/29/19 09:00 10/06/19 15:59 Vancomycin HCl 1 gm/Sodium Chloride 275 ml @ 183.708 mls/hr Q24H IVPB 09/30/19 13:00 10/05/19 12:59 09/30/19 13:15 Sowmya Abbasi MD Sep 30, 2019 21:05
[2019-10-01] VITALS: BP 112/58
[2019-10-01 04:00] VITALS: BP 112/53
[2019-10-01] MEDS: NovoLOG Insulin Flexpen SUBQ SCH ×4 (06:00→17:11)
[2019-10-01 06:23] LABS: APPEARANCE,URINE CLEAR; BILIRUBIN, URINE NEGATIVE (NEGATIVE); COLOR,URINE PALE YELLOW; GLUCOSE, URINE (UA) NEGATIVE (NEGATIVE); KETONES,URINE NEGATIVE (NEGATIVE); LEUKOCYTE ESTERASE ,URINE 1+ (NEGATIVE); NITRITE,URINE NEGATIVE (NEGATIVE); PH,URINE 7 (4.5-8.0); PROTEIN,URINE 2+ (NEGATIVE); UROBILINOGEN,URINE NORMAL MG/DL (0.0-1.0)
--- NOTE | 2019-10-01 07:00 | NUR ---
NURSE NOTES: Benavidez is also intact, asymptomatic, draining well, urine noted with yellow color, no sediments. .
--- NOTE | 2019-10-01 07:00 | NUR ---
NURSE NOTES: Nurse report given by SERGIO Ho. Patient's sleeping but easily awake to light touch. Patient's nonverbal but able to nod, AO x 1, no s/s of distress or SOB. Bed low and locked, call light within reach, side rails x 3, air mattress is on, business director is applied. Patient's on 2L NC with humidifier, patient's on tube feeding, running at 50cc, stoma is intact. L femoral central lines, 3 lumens noted, patent and asymptomatic, running fluid at 75ml/hrs. Wounds noted. Patient's afebrile at this time. Will continue to monitor.
--- NOTE | 2019-10-01 07:34 | NUR ---
HAND-OFF: Report given to SERGIO Butt, patient in stable condition, plan of care endorsed.
[2019-10-01 07:52] VITALS: BP 121/58
[2019-10-01] MEDS: Gabapentin 300 MG/6 ML Soln GT SCH ×3 (08:35→17:12)
[2019-10-01] MEDS: Vancomycin oral 125mg/2.5ml ORAL SCH ×4 (08:35→21:00)
[2019-10-01] MEDS: Heparin 5000 units/ml inj SUBQ SCH ×2 (08:42→21:02)
--- NOTE | 2019-10-01 08:49 | NUR ---
NURSE NOTES: PAGED DR INTERIANO VIA EXCHANGE RE BLOOD CX +YEAST , AWAITING CALL BACK
[2019-10-01] MEDS: Micafungin 100 MG in NS 110 ML IVPB SCH (10:32)
[2019-10-01 12:00] VITALS: BP 127/57
[2019-10-01] MEDS: Vancomycin 1 GM in NS 275 ML IVPB SCH (12:21)
[2019-10-01] MEDS ORDERED: Sterile Water For Irrig 2000ml IRRIG ONE (15:02)
[2019-10-01 16:00] VITALS: BP 122/54
--- NOTE | 2019-10-01 19:34 | NUR ---
HAND-OFF: Report given to SERGIO Dasilva. Plan of care endorsed. Patient's stable.
--- NOTE | 2019-10-01 19:35 | NUR ---
NURSE NOTES: Got report from Filomena HILL. Pt in stable condition. Denies any pain. No s/s of distress or discomfort noted. Pt resting in bed comfortably. Bed in low and locked position, call light within reach, bedside table within reach. Continue to monitor.
[2019-10-01 20:00] VITALS: BP 124/62
[2019-10-01] MEDS: Dyna-Hex 2% Top Sol 2oz TOPIC SCH (21:00)
--- NOTE | 2019-10-01 21:26 | Pulmonology Progress Note ---
Assessment/Plan Problems: (1) Sepsis (2) Healthcare-associated pneumonia (3) Tachycardia (4) C. difficile colitis (5) At high risk for aspiration (6) History of CVA (cerebrovascular accident) (7) Advanced dementia (8) G tube feedings (9) HTN (hypertension) Assessment/Plan afebrile yesterday still on face mask Keep left chest elevated respiratory treatment titrate fio2 to sat of 92% aspiration precaution dvt prophylaxis family doesn't want to consider comfort measures. since pts is still awake and can communicate with them. Subjective ROS Limited/Unobtainable: Yes Interval Events: awake Allergies: Coded Allergies: HYDROMORPHONE (Unverified Allergy, Unknown, 01/04/18) Objective Last 24 Hour Vital Signs Date Time Temp Pulse Resp B/P (MAP) Pulse Ox O2 Delivery O2 Flow Rate FiO2 10/01/19 16:00 91 10/01/19 16:00 98.6 99 20 122/54 (76) 100 10/01/19 12:00 102 10/01/19 12:00 98.7 104 20 127/57 (80) 100 10/01/19 09:00 Nasal Cannula 2.0 Nasal Cannula 2.0 10/01/19 08:35 95 121/58 10/01/19 08:00 105 10/01/19 07:52 98.4 95 18 121/58 (79) 100 10/01/19 04:00 105 10/01/19 04:00 97.0 100 16 112/53 (72) 98 10/01/19 00:00 97.5 96 18 112/58 (76) 98 10/01/19 00:00 92 Intake and Output 09/30/19 10/01/19 19:00 07:00 Intake Total 850 ml 620 ml Output Total 1100 ml Balance -250 ml 620 ml Free Water 250 ml 120 ml Tube Feeding 600 ml 500 ml Output Urine Total 1100 ml # Bowel Movements 2 1 Objective General Appearance: cachetic HEENT: normocephalic, atraumatic Respiratory/Chest: chest wall non-tender, normal breath sounds Cardiovascular: normal rate, regular rhythm Abdomen: normal bowel sounds, soft, non tender Genitourinary: normal external genitalia Extremities: no cyanosis Skin: no rash, no lesions Microbiology Date/Time Source Procedure Growth Status 09/29/19 14:45 Blood Blood Culture - Preliminary Resulted 09/29/19 14:30 Blood Blood Culture - Preliminary NO GROWTH AFTER 24 HOURS Resulted Laboratory Tests 10/01/19 02:00: Urine Color Pale yellow, Urine Appearance Clear, Urine pH 7, Urine Specific [place] 1.005, Urine Protein 2+H, Urine Glucose (UA) Negative, Urine Ketones Negative, Urine Blood 1+H, Urine Nitrite Negative, Urine Bilirubin Negative, Urine Urobilinogen Normal, Urine Leukocyte Esterase 1+H, Urine RBC 0-2H, Urine WBC 0-2, Urine Squamous Epithelial Cells None, Urine Bacteria Few Current Medications Medications (Trade) Dose Ordered Sig/Nelson Route PRN Reason Start Time Stop Time Status Last Admin Dose Admin Acetaminophen (Tylenol) 650 mg Q4H PRN GT Mild Pain/Temp > 100.5 09/28/19 15:22 10/28/19 15:21 09/29/19 08:42 Amlodipine Besylate (Norvasc) 5 mg DAILY GT 09/29/19 09:00 10/07/19 08:59 10/01/19 08:35 Chlorhexidine Gluconate (Clara-Hex 2%) 1 applic DAILY@2000 TOPIC 09/28/19 20:00 10/23/19 19:59 10/01/19 21:00 Dextrose (Dextrose 50%) 25 ml Q30M PRN IV Hypoglycemia 09/28/19 15:30 10/06/19 17:59 Dextrose (Dextrose 50%) 50 ml Q30M PRN IV Hypoglycemia 09/28/19 15:30 10/06/19 17:59 Gabapentin (Neurontin) 250 mg TID GT 09/28/19 18:00 10/06/19 19:59 10/01/19 17:12 Heparin Sodium (Porcine) (Heparin 5000 units/ml) 5,000 units EVERY 12 HOURS SUBQ 09/29/19 21:00 10/29/19 20:59 10/01/19 21:02 Insulin Aspart (NovoLOG) Q6HR SUBQ 09/28/19 18:00 10/07/19 00:00 09/30/19 12:15 Micafungin Sodium 100 mg/Sodium Chloride 110 ml @ 110 mls/hr Q24H IVPB 10/01/19 10:00 10/08/19 09:59 10/01/19 10:32 Nitroglycerin (Ntg) 0.4 mg Q5M PRN SL Prn Chest Pain 09/28/19 15:22 10/28/19 15:21 Ondansetron HCl (Zofran) 4 mg Q6H PRN IVP Nausea & Vomiting 09/28/19 15:23 10/28/19 15:22 Polyethylene Glycol (Miralax) 17 gm DAILYPRN PRN GT Constipation 09/28/19 15:23 10/28/19 15:22 Sodium Chloride 1,000 ml @ 75 mls/hr [id number] IV 09/28/19 15:22 10/28/19 15:21 10/01/19 10:32 Vancomycin HCl (Firvanq) 125 mg FOUR TIMES A DAY ORAL 09/28/19 18:00 10/03/19 23:59 10/01/19 21:00 Vancomycin HCl (Vanco rx to dose) 1 ea DAILY PRN MISC Per rx protocol 09/29/19 09:00 10/06/19 15:59 Vancomycin HCl 1 gm/Sodium Chloride 275 ml @ 183.708 mls/hr Q24H IVPB 09/30/19 13:00 10/05/19 12:59 10/01/19 12:21 Sowmya Abbasi MD Oct 01, 2019 21:26
[2019-10-02] VITALS: BP 129/63
[2019-10-02 04:00] VITALS: BP 122/60
[2019-10-02] MEDS: NovoLOG Insulin Flexpen SUBQ SCH ×4 (06:00→18:00)
--- NOTE | 2019-10-02 07:00 | NUR ---
HAND-OFF: Report given to Francisca HILL.
[2019-10-02 08:00] VITALS: BP 137/68
--- NOTE | 2019-10-02 08:08 | NUR ---
NURSE NOTES: Received patient from Trenton Puckett. Patient in awake in bed. Nods and shakes head to questions appropriately. Contracted X4 extremities. TF anf IVF running. HOB @ 30 degrees. FAll/ Aspiration precautions in place. Will attend to needs and monitor patient all throughout shift. t
[2019-10-02] MEDS: Vancomycin oral 125mg/2.5ml ORAL SCH ×4 (09:22→21:11)
[2019-10-02] MEDS: Gabapentin 300 MG/6 ML Soln GT SCH ×3 (09:22→17:42)
[2019-10-02] MEDS: Heparin 5000 units/ml inj SUBQ SCH ×2 (09:24→21:12)
[2019-10-02] MEDS: Micafungin 100 MG in NS 110 ML IVPB SCH (09:26)
--- NOTE | 2019-10-02 09:39 | NUR ---
NURSE NOTES: Tay call from [facility]. Blood culture result with gram positive cocci in clusters. Message left to Dr. Zaragoza. Will follow.
--- NOTE | 2019-10-02 09:58 | NUR ---
CASE MANAGEMENT:REVIEW 10/02/19 SI: PNA. BACTEREMIA 98.1 93 20 137/68% ON 2L NC IS: IV MICAFUNGIN IVF NS @75ML/HR IV VANCOMYCIN X1 VANCOMYCIN HCL GT QID HEPARIN SQ BID NORVASC GT QD NEURONTIN GT TID NOVOLOG SQ Q6HR : 2E TELE UNIT DCP: [facility] PLAN: BLOOD CX + YEAST LEFT FEMORAL CENTRAL VENOUS CATHETER INSERTION 09/28/19
[2019-10-02 11:47] VITALS: BP 127/75
[2019-10-02] MEDS: Vancomycin 1 GM in NS 275 ML IVPB SCH (13:10)
--- NOTE | 2019-10-02 13:22 | Pulmonology Progress Note ---
Assessment/Plan Problems: (1) Sepsis (2) Healthcare-associated pneumonia (3) Tachycardia (4) C. difficile colitis (5) At high risk for aspiration (6) History of CVA (cerebrovascular accident) (7) Advanced dementia (8) G tube feedings (9) HTN (hypertension) Assessment/Plan getting better afebrile yesterday still on face mask respiratory treatment titrate fio2 to sat of 92% aspiration precaution dvt prophylaxis family doesn't want to consider comfort measures. since pts is still awake and can communicate with them. Subjective ROS Limited/Unobtainable: No Interval Events: no new complains Allergies: Coded Allergies: HYDROMORPHONE (Unverified Allergy, Unknown, 01/04/18) Objective Last 24 Hour Vital Signs Date Time Temp Pulse Resp B/P (MAP) Pulse Ox O2 Delivery O2 Flow Rate FiO2 10/02/19 11:47 98.6 92 18 127/75 (92) 100 10/02/19 09:23 93 137/68 10/02/19 09:00 Nasal Cannula 2.0 Nasal Cannula 2.0 10/02/19 08:00 98.1 93 20 137/68 (91) 97 10/02/19 08:00 92 10/02/19 06:53 96 Nasal Cannula 2.0 28 10/02/19 04:00 90 10/02/19 04:00 98.0 95 18 122/60 (80) 100 10/02/19 00:00 88 10/02/19 00:00 98.2 89 18 129/63 (85) 99 10/01/19 21:00 Nasal Cannula 2.0 Nasal Cannula 2.0 10/01/19 20:00 92 10/01/19 20:00 98.2 90 18 124/62 (82) 98 10/01/19 16:00 91 10/01/19 16:00 98.6 99 20 122/54 (76) 100 Intake and Output 10/01/19 10/02/19 19:00 07:00 Intake Total 750 ml Output Total 400 ml 2200 ml Balance 350 ml -2200 ml Free Water 250 ml Tube Feeding 500 ml Output Urine Total 400 ml 2200 ml # Bowel Movements 3 2 Objective General Appearance: cachetic HEENT: normocephalic, atraumatic Respiratory/Chest: chest wall non-tender, normal breath sounds Cardiovascular: normal rate, regular rhythm Abdomen: normal bowel sounds, soft, non tender Genitourinary: normal external genitalia Extremities: no cyanosis Skin: no rash, no lesions Microbiology Date/Time Source Procedure Growth Status 09/29/19 14:45 Blood Blood Culture - Preliminary YEAST Resulted 09/29/19 14:30 Blood Blood Culture - Preliminary NO GROWTH AFTER 48 HOURS Resulted Laboratory Tests 10/02/19 12:05: Vancomycin Level Trough 14.0H Current Medications Medications (Trade) Dose Ordered Sig/Nelson Route PRN Reason Start Time Stop Time Status Last Admin Dose Admin Acetaminophen (Tylenol) 650 mg Q4H PRN GT Mild Pain/Temp > 100.5 09/28/19 15:22 10/28/19 15:21 09/29/19 08:42 Amlodipine Besylate (Norvasc) 5 mg DAILY GT 09/29/19 09:00 10/07/19 08:59 10/02/19 09:23 Chlorhexidine Gluconate (Clara-Hex 2%) 1 applic DAILY@2000 TOPIC 09/28/19 20:00 10/23/19 19:59 10/01/19 21:00 Dextrose (Dextrose 50%) 25 ml Q30M PRN IV Hypoglycemia 09/28/19 15:30 10/06/19 17:59 Dextrose (Dextrose 50%) 50 ml Q30M PRN IV Hypoglycemia 09/28/19 15:30 10/06/19 17:59 Gabapentin (Neurontin) 250 mg TID GT 09/28/19 18:00 10/06/19 19:59 10/02/19 13:10 Heparin Sodium (Porcine) (Heparin 5000 units/ml) 5,000 units EVERY 12 HOURS SUBQ 09/29/19 21:00 10/29/19 20:59 10/02/19 09:24 Insulin Aspart (NovoLOG) Q6HR SUBQ 09/28/19 18:00 10/07/19 00:00 09/30/19 12:15 Micafungin Sodium 100 mg/Sodium Chloride 110 ml @ 110 mls/hr Q24H IVPB 10/01/19 10:00 10/08/19 09:59 10/02/19 09:26 Nitroglycerin (Ntg) 0.4 mg Q5M PRN SL Prn Chest Pain 09/28/19 15:22 10/28/19 15:21 Ondansetron HCl (Zofran) 4 mg Q6H PRN IVP Nausea & Vomiting 09/28/19 15:23 10/28/19 15:22 Polyethylene Glycol (Miralax) 17 gm DAILYPRN PRN GT Constipation 09/28/19 15:23 10/28/19 15:22 Sodium Chloride 1,000 ml @ 75 mls/hr [id number] IV 09/28/19 15:22 10/28/19 15:21 10/02/19 12:50 Vancomycin HCl (Firvanq) 125 mg FOUR TIMES A DAY ORAL 09/28/19 18:00 10/03/19 23:59 10/02/19 13:10 Vancomycin HCl (Vanco rx to dose) 1 ea DAILY PRN MISC Per rx protocol 09/29/19 09:00 10/06/19 15:59 Vancomycin HCl 1 gm/Sodium Chloride 275 ml @ 183.708 mls/hr Q24H IVPB 09/30/19 13:00 10/05/19 12:59 10/02/19 13:10 Sowmya Abbasi MD Oct 02, 2019 13:22
--- NOTE | 2019-10-02 14:04 | Infectious Diseases Prog Note ---
Assessment/Plan Assessment/Plan 79yo gentleman with PMH below presents from residential for hypoxia and report of cough. Pt was recently admitted at this hospital 08/15-08/22 for sepsis 2/2 R shoulder abscess. Pt was discharged on zosyn and vancomycin. Pt unable to provide history. Per residential records, they were concerned for pneumonia. Pt was started on levaquin/flagyl early August. Fungemia REcurrent Gram positive bacteremia -09/29 10/28 yeast, / GPC clusters; 10/01, 10/02 Bcx p Fever; low grade; improving Leukopenia, SP No lactic acidosis -09/24 u/a wbc 5-10; ucx <10k yeast Bcx Neg Pseudomonas PNA, sp Rx -09/24 CXR: Interval improvement in the left lower lobe and bilateral upper lobe interstitial thickening. There is a persistent heterogeneous retrocardiac airspace opacity. No pleural effusion or pneumothorax. Heart size is normal. -09/18 CT chest: Combination of atelectasis and dense pneumonia involving the left lower lobe. Please correlate clinically. Additional patchy groundglass infiltrates in both upper lobes also present. Atherosclerotic disease. Acute hypoxic respiratory failure on nasal cannula supplement CXR: Pneumonia versus atelectasis at the left lung base. sputum cx: Pseudomonas 09/11 CXR: New right suprahilar and increasing left basilar infiltrates, since prior study of 5 days earlier 09/15 CXR: Increased left mid and lower lung patchy atelectasis and/or consolidation Unlikely UTI UA negative Persistent CoNS bacteremia, albeit diff species. 2/2 pressure ulcers? shoulder abscess? cervical spine prosthetic infection? R shoulder osteomyelitis? 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 Thickened mitral valve leaflets with normal excursion. Mitral annulus and aortic root calcification. Pulmonic valve not visualized. Normal tricuspid valve structure. 09/13 UE/LE duplex: negative for DVT 09/13 bcx: ngtd 09/14 BCx: NTD h/o Staph capitis(CoNS) bacteremia 08/15 08/16 BCx: NG h/o R shoulder abscess 09/18 CT shoulder: No evidence of abscess. 08/20 cx: Proteus, CoNS 09/13 CT shoulder: Since 08/22/2019, previously demonstrated right posterior shoulder superficial wound is largely closed. There is some residual gas and what appears to be scar tissue in the area. No definite abscess currently, although evaluation for such is limited in the absence of IV contrast. Multifocal bilateral pulmonary parenchymal infiltrates, presumably pneumonia, are noted. Extensive heterotopic new bone surrounding the right shoulder is again demonstrated. Correlate with clinical history. Evidence of prior cervical spine fusion surgery. MRSA screen negative HTN FTT Anemia CVA Aphasia G tube malfunction BPH DM Bedbound OA Dementia NH resident DNR Plan: Contine IV vanc # Cont PO Vancomycin 125mg qid #/ Continue Micafungin #2 09/25 SP Meropenem #15 09/11 SP cefepime #5 f/u repeat bcx aspiration precaution, elevate HOB G tube care skin care at this point, concerning for infection of L knee prosthetic and/or neck prosthesis. once pneumonia improves, will obtain indium scan to evaluate previous cervical spine fusion surgery site and the R shoulder in the setting of persistent GPC bacteremia. if we obtain indium scan now, likely the lungs will light up. 2d echo Thank you for this consult. [facility] will continue to follow the patient with you. Subjective Allergies: Coded Allergies: HYDROMORPHONE (Unverified Allergy, Unknown, 01/04/18) Subjective afebrile >48hrs no leukocytosis Objective Vital Signs Last 24 Hour Vital Signs Date Time Temp Pulse Resp B/P (MAP) Pulse Ox O2 Delivery O2 Flow Rate FiO2 10/02/19 12:00 94 10/02/19 11:47 98.6 92 18 127/75 (92) 100 10/02/19 09:23 93 137/68 10/02/19 09:00 Nasal Cannula 2.0 Nasal Cannula 2.0 10/02/19 08:00 98.1 93 20 137/68 (91) 97 10/02/19 08:00 92 10/02/19 06:53 96 Nasal Cannula 2.0 28 10/02/19 04:00 90 10/02/19 04:00 98.0 95 18 122/60 (80) 100 10/02/19 00:00 88 10/02/19 00:00 98.2 89 18 129/63 (85) 99 10/01/19 21:00 Nasal Cannula 2.0 Nasal Cannula 2.0 10/01/19 20:00 92 10/01/19 20:00 98.2 90 18 124/62 (82) 98 10/01/19 16:00 91 10/01/19 16:00 98.6 99 20 122/54 (76) 100 Height (Feet): 5 Height (Inches): 11.00 Weight (Pounds): 164 Objective General Appearance: cachetic HEENT: normocephalic, atraumatic Respiratory/Chest: chest wall non-tender, normal breath sounds Cardiovascular: normal rate, regular rhythm Abdomen: normal bowel sounds, soft, non tender Genitourinary: normal external genitalia Extremities: no cyanosis Skin: no rash, no lesions Microbiology Date/Time Source Procedure Growth Status 09/29/19 14:45 Blood Blood Culture - Preliminary YEAST Resulted 09/29/19 14:30 Blood Blood Culture - Preliminary NO GROWTH AFTER 48 HOURS Resulted Laboratory Tests Test 10/02/19 12:05 Vancomycin Level Trough 14.0 ug/mL (5.0-12.0) H Current Medications Medications (Trade) Dose Ordered Sig/Nelson Route PRN Reason Start Time Stop Time Status Last Admin Dose Admin Acetaminophen (Tylenol) 650 mg Q4H PRN GT Mild Pain/Temp > 100.5 09/28/19 15:22 10/28/19 15:21 09/29/19 08:42 Amlodipine Besylate (Norvasc) 5 mg DAILY GT 09/29/19 09:00 10/07/19 08:59 10/02/19 09:23 Chlorhexidine Gluconate (Clara-Hex 2%) 1 applic DAILY@1999 TOPIC 09/28/19 20:00 10/23/19 19:59 10/01/19 21:00 Dextrose (Dextrose 50%) 25 ml Q30M PRN IV Hypoglycemia 09/28/19 15:30 10/06/19 17:59 Dextrose (Dextrose 50%) 50 ml Q30M PRN IV Hypoglycemia 09/28/19 15:30 10/06/19 17:59 Gabapentin (Neurontin) 250 mg TID GT 09/28/19 18:00 10/06/19 19:59 10/02/19 13:10 Heparin Sodium (Porcine) (Heparin 5000 units/ml) 5,000 units EVERY 12 HOURS SUBQ 09/29/19 21:00 10/29/19 20:59 10/02/19 09:24 Insulin Aspart (NovoLOG) Q6HR SUBQ 09/28/19 18:00 10/07/19 00:00 09/30/19 12:15 Micafungin Sodium 100 mg/Sodium Chloride 110 ml @ 110 mls/hr Q24H IVPB 10/01/19 10:00 10/08/19 09:59 10/02/19 09:26 Nitroglycerin (Ntg) 0.4 mg Q5M PRN SL Prn Chest Pain 09/28/19 15:22 10/28/19 15:21 Ondansetron HCl (Zofran) 4 mg Q6H PRN IVP Nausea & Vomiting 09/28/19 15:23 10/28/19 15:22 Polyethylene Glycol (Miralax) 17 gm DAILYPRN PRN GT Constipation 09/28/19 15:23 10/28/19 15:22 Sodium Chloride 1,000 ml @ 75 mls/hr [id number] IV 09/28/19 15:22 10/28/19 15:21 10/02/19 12:50 Vancomycin HCl (Firvanq) 125 mg FOUR TIMES A DAY ORAL 09/28/19 18:00 10/03/19 23:59 10/02/19 13:10 Vancomycin HCl (Vanco rx to dose) 1 ea DAILY PRN MISC Per rx protocol 09/29/19 09:00 10/06/19 15:59 Vancomycin HCl 1 gm/Sodium Chloride 275 ml @ 183.708 mls/hr Q24H IVPB 09/30/19 13:00 10/05/19 12:59 10/02/19 13:10 vAril Zaragoza M.D. Oct 02, 2019 14:04
--- NOTE | 2019-10-02 15:00 | NUR ---
NURSE NOTES: Received pt from [facility]. pt is awake A&O X1. Pt has NC 2LMP. pt has L FEMORAL 3 LUMEN is running well. Pt has g tube in place is working well. pt has Benavidez cath in place is running well. No complain of pain at this moment. all needs attended, bed is locked and is in the lowest position, call light within easy reach. will continue to monitor.
--- NOTE | 2019-10-02 15:06 | NUR ---
TRANSFER TO FLOOR: Patient transferred to [id number] , per Dr. Abbasi's order. Report given to Trenton Harrison. Patient stable. Message left to daughter Sweta.
[2019-10-02] MEDS ORDERED: Acetaminophen 650mg/20.3ml GT PRN (15:08)
[2019-10-02] MEDS ORDERED: Miralax 17gm pkt GT PRN (15:09)
[2019-10-02] MEDS ORDERED: Nitroglycerin Subl 0.4mg tab SL PRN (15:15)
[2019-10-02 15:27] VITALS: BP 139/81
--- NOTE | 2019-10-02 19:26 | NUR ---
HAND-OFF: Report given to ALHAJI RN. Pt is awake and stable.
[2019-10-02 20:00] VITALS: BP 140/84
--- NOTE | 2019-10-02 20:19 | NUR ---
NURSE NOTES: RECEIVED PT FROM SERGIO ZHENG. PT IS ASLEEP, AAOX1, AROUSABLE TO VOICE, ON NC 2L, NO ACUTE DISTRESS NOTED. WOUND DRESSINGS INTACT AND DRY. G-TUBE FEEDING IS IS INTACT, NO RESIDUALS, FLUSHING WELL, RUNNING GLUCERNA 1.5 AT 50ML. PT IS TOLERATING FEEDING WELL. IV IS INTACT AND PATENT. BED IS LOCKED AND LOW, BED ALARMS ACTIVE, SIDE RAILS UP X2 AND CALL LIGHT IS WITHIN REACH. WILL CONTINUE TO MONITOR.
[2019-10-02] MEDS: Dyna-Hex 2% Top Sol 2oz TOPIC SCH (20:46)
[2019-10-03] VITALS: BP 154/86
[2019-10-03 04:00] VITALS: BP 154/96
[2019-10-03] MEDS: NovoLOG Insulin Flexpen SUBQ SCH ×4 (06:08→18:00)
[2019-10-03 07:12] LABS: ALANINE AMINOTRANSFERASE 17 U/L (12-78); ALBUMIN 2.1 G/DL (3.4-5.0); ALBUMIN/GLOBULIN RATIO 0.3 (1.0-2.7); ALKALINE PHOSPHATASE 94 U/L (46-116); ANION GAP 8 mmol/L (5-15); ASPARTATE AMINO TRANSFERASE 21 U/L (15-37); BILIRUBIN,TOTAL 0.2 MG/DL (0.2-1.0); BLOOD UREA NITROGEN 14 mg/dL (7-18); CALCIUM 9.2 MG/DL (8.5-10.1); CARBON DIOXIDE 27 MMOL/L (21-32); CHLORIDE 104 MMOL/L (98-107); CREATININE 0.5 MG/DL (0.55-1.30); PHOSPHORUS 3.5 MG/DL (2.5-4.9); POTASSIUM 4.1 MMOL/L (3.5-5.1); SODIUM 139 MMOL/L (136-145)
--- NOTE | 2019-10-03 07:43 | NUR ---
HAND-OFF: Report given to SERGIO JOAQUIN. Patient is in stable condition. Endorsed plan of care.
[2019-10-03 08:00] VITALS: BP 137/82
--- NOTE | 2019-10-03 08:00 | NUR ---
NURSE NOTES: Patient alert to name,respirations unlabored.Non verbal,but patient nod head to question.G-tube feedings as ordered.No residual noted at this time.IV fluids infusing as ordered.Benavidez catheter is in place and draining yellow urine. HOB is elevated.Bed alarm is on.
[2019-10-03 08:18] LABS: HEMATOCRIT 27.4 % (42.0-52.0); MEAN CORPUSCULAR VOLUME 92 FL (80-99); PLATELET COUNT 531 K/UL (150-450); RED BLOOD COUNT 2.97 M/UL (4.70-6.10); RED CELL DISTRIBUTION WIDTH 14.4 % (11.6-14.8); WHITE BLOOD COUNT 4.6 K/UL (4.8-10.8)
[2019-10-03] MEDS: Gabapentin 300 MG/6 ML Soln GT SCH ×3 (08:47→20:01)
[2019-10-03] MEDS: Vancomycin oral 125mg/2.5ml ORAL SCH ×4 (08:49→21:54)
[2019-10-03] MEDS: Heparin 5000 units/ml inj SUBQ SCH ×2 (08:50→21:55)
[2019-10-03] MEDS: Micafungin 100 MG in NS 110 ML IVPB SCH (11:12)
[2019-10-03 12:00] VITALS: BP 134/81
--- NOTE | 2019-10-03 12:32 | Pulmonology Progress Note ---
Assessment/Plan Problems: (1) Sepsis (2) Healthcare-associated pneumonia (3) Tachycardia (4) C. difficile colitis (5) At high risk for aspiration (6) History of CVA (cerebrovascular accident) (7) Advanced dementia (8) G tube feedings (9) HTN (hypertension) Assessment/Plan afebrile yesterday still on face mask Keep left chest elevated respiratory treatment titrate fio2 to sat of 92% aspiration precaution dvt prophylaxis family doesn't want to consider comfort measures. since pts is still awake and can communicate with them. Subjective ROS Limited/Unobtainable: No Constitutional: Reports: no symptoms HEENT: Repors: no symptoms Respiratory: Reports: no symptoms Allergies: Coded Allergies: HYDROMORPHONE (Unverified Allergy, Unknown, 01/04/18) Objective Last 24 Hour Vital Signs Date Time Temp Pulse Resp B/P (MAP) Pulse Ox O2 Delivery O2 Flow Rate FiO2 10/03/19 09:22 Nasal Cannula 2.0 Nasal Cannula 2.0 10/03/19 08:49 105 142/83 10/03/19 08:00 98.1 102 20 137/82 (100) 99 10/03/19 04:00 98.7 106 20 154/96 (115) 99 10/03/19 00:00 98.2 94 19 154/86 (108) 100 10/02/19 21:00 Nasal Cannula 2.0 Nasal Cannula 2.0 10/02/19 20:00 98.5 94 18 140/84 (102) 100 10/02/19 20:00 95 Nasal Cannula 2.0 28 10/02/19 15:27 99.3 98 20 139/81 (100) 94 Intake and Output 10/02/19 10/03/19 19:00 07:00 Intake Total 625 ml 1100 ml Output Total 750 ml 1275 ml Balance -125 ml -175 ml Free Water 200 ml 150 ml IV Total 225 ml 750 ml Tube Feeding 200 ml 200 ml Output Urine Total 750 ml 1275 ml # Bowel Movements 2 Objective General Appearance: cachetic HEENT: normocephalic, atraumatic Respiratory/Chest: chest wall non-tender, normal breath sounds Cardiovascular: normal rate, regular rhythm Abdomen: normal bowel sounds, soft, non tender Genitourinary: normal external genitalia Extremities: no cyanosis Skin: no rash, no lesions Microbiology Date/Time Source Procedure Growth Status 10/01/19 10:10 Blood Blood Culture - Preliminary NO GROWTH AFTER 24 HOURS Resulted 10/01/19 10:00 Blood Blood Culture - Preliminary NO GROWTH AFTER 24 HOURS Resulted Laboratory Tests 10/03/19 05:30: White Blood Count 4.6L, Red Blood Count 2.97L, Hemoglobin 9.0L, Hematocrit 27.4L , Mean Corpuscular Volume 92, Mean Corpuscular Hemoglobin 30.2, Mean Corpuscular Hemoglobin Concent 32.7, Red Cell Distribution Width 14.4, Platelet Count 531H, Mean Platelet Volume 6.6, Neutrophils (%) (Auto) , Lymphocytes (%) ( Auto) , Monocytes (%) (Auto) , Eosinophils (%) (Auto) , Basophils (%) (Auto) , Differential Total Cells Counted 100, Neutrophils % (Manual) 59, Lymphocytes % ( Manual) 23, Monocytes % (Manual) 8, Eosinophils % (Manual) 9H, Basophils % ( Manual) 1, Band Neutrophils 0, Platelet Estimate IncreasedH, Platelet Morphology Normal, Erythrocyte Sedimentation Rate 120H, Sodium Level 139, Potassium Level 4.1, Chloride Level 104, Carbon Dioxide Level 27, Anion Gap 8, Blood Urea Nitrogen 14, Creatinine 0.5L, Estimat Glomerular Filtration Rate , Glucose Level 121H, Calcium Level 9.2, Phosphorus Level 3.5, Magnesium Level 1.7L, Total Bilirubin 0.2, Aspartate Amino Transf (AST/SGOT) 21, Alanine Aminotransferase (ALT/SGPT) 17, Alkaline Phosphatase 94, C-Reactive Protein, Quantitative 1.8H, Total Protein 9.0H, Albumin 2.1L, Globulin 6.9, Albumin/ Globulin Ratio 0.3L Current Medications Medications (Trade) Dose Ordered Sig/Nelson Route PRN Reason Start Time Stop Time Status Last Admin Dose Admin Acetaminophen (Tylenol) 650 mg Q4H PRN GT Mild Pain/Temp > 100.5 10/02/19 15:08 11/01/19 15:07 Amlodipine Besylate (Norvasc) 5 mg DAILY GT 10/03/19 09:00 10/07/19 08:59 10/03/19 08:49 Chlorhexidine Gluconate (Clara-Hex 2%) 1 applic DAILY@1999 TOPIC 10/02/19 20:00 10/23/19 19:59 10/02/19 20:46 Clonidine HCl (Catapres Tab) 0.1 mg Q6H PRN ORAL For High Blood Pressure 10/03/19 07:45 11/02/19 07:44 Dextrose (Dextrose 50%) 25 ml Q30M PRN IV Hypoglycemia 10/02/19 15:30 10/06/19 17:59 Dextrose (Dextrose 50%) 50 ml Q30M PRN IV Hypoglycemia 10/02/19 15:30 10/06/19 17:59 Gabapentin (Neurontin) 250 mg TID GT 10/02/19 18:00 10/06/19 19:59 10/03/19 08:47 Heparin Sodium (Porcine) (Heparin 5000 units/ml) 5,000 units EVERY 12 HOURS SUBQ 10/02/19 21:00 10/29/19 20:59 10/03/19 08:50 Insulin Aspart (NovoLOG) Q6HR SUBQ 10/02/19 18:00 10/07/19 00:00 10/03/19 06:08 Micafungin Sodium 100 mg/Sodium Chloride 110 ml @ 110 mls/hr Q24H IVPB 10/03/19 10:00 10/08/19 09:59 10/03/19 11:12 Nitroglycerin (Ntg) 0.4 mg Q5M PRN SL Prn Chest Pain 10/02/19 15:15 10/28/19 15:21 Ondansetron HCl (Zofran) 4 mg Q6H PRN IVP Nausea & Vomiting 10/02/19 15:30 10/28/19 15:22 Polyethylene Glycol (Miralax) 17 gm DAILYPRN PRN GT Constipation 10/02/19 15:09 11/01/19 15:08 Sodium Chloride 1,000 ml @ 75 mls/hr [id number] IV 10/02/19 15:08 11/01/19 15:07 10/02/19 15:27 Vancomycin HCl (Firvanq) 125 mg FOUR TIMES A DAY ORAL 10/02/19 18:00 10/03/19 23:59 10/03/19 08:49 Vancomycin HCl (Vanco rx to dose) 1 ea DAILY PRN MISC Per rx protocol 10/03/19 09:00 10/06/19 15:59 Vancomycin HCl 1 gm/Sodium Chloride 275 ml @ 183.708 mls/hr Q24H IVPB 10/03/19 13:00 10/05/19 12:59 Sowmya Abbsai MD Oct 03, 2019 12:31
[2019-10-03] MEDS ORDERED: Vancomycin 1 GM in NS 275 ML IVPB SCH (13:00)
--- NOTE | 2019-10-03 13:10 | NUR ---
CASE MANAGEMENT:REVIEW 10/03/19 SI: PNA. BACTEREMIA 98.1 102 20 137/82 99% ON 2L NC WBC 4.6 RBC 2.97 H/H 9.0/27.4 MG 1.7 BG 121 IS: IVF NS @75ML/HR IV MICAFUNGIN VANCOMYCIN HCL PO QID HEPARIN SQ BID NORVASC GT QD NEURONTIN GT TID NOVOLOG SQ Q6HR : 4E MED/SURG DCP: [facility] PLAN: LAB IN AM WOUND STAGING
--- NOTE | 2019-10-03 15:22 | Infectious Diseases Prog Note ---
Assessment/Plan Assessment/Plan 79yo gentleman with PMH below presents from [facility] for hypoxia and report of cough. Pt was recently admitted at this hospital 08/15-08/22 for sepsis 2/2 R shoulder abscess. Pt was discharged on zosyn and vancomycin. Pt unable to provide history. Per [facility] records, they were concerned for pneumonia. Pt was started on levaquin/flagyl early August. Fungemia REcurrent Gram positive bacteremia, ?contaminant -09/29 10/28 william parasilopsis, 10/28 CONS; 10/01 Bcx NTD, 10/02 Bcx p Fever; low grade;SP Leukopenia, SP No lactic acidosis -09/24 u/a wbc 5-10; ucx <10k yeast Bcx Neg Pseudomonas PNA, sp Rx -09/24 CXR: Interval improvement in the left lower lobe and bilateral upper lobe interstitial thickening. There is a persistent heterogeneous retrocardiac airspace opacity. No pleural effusion or pneumothorax. Heart size is normal. -09/18 CT chest: Combination of atelectasis and dense pneumonia involving the left lower lobe. Please correlate clinically. Additional patchy groundglass infiltrates in both upper lobes also present. Atherosclerotic disease. Acute hypoxic respiratory failure on nasal cannula supplement CXR: Pneumonia versus atelectasis at the left lung base. sputum cx: Pseudomonas 09/11 CXR: New right suprahilar and increasing left basilar infiltrates, since prior study of 5 days earlier 09/15 CXR: Increased left mid and lower lung patchy atelectasis and/or consolidation Unlikely UTI UA negative Persistent CoNS bacteremia, albeit diff species. 2/2 pressure ulcers? shoulder abscess? cervical spine prosthetic infection? R shoulder osteomyelitis? 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 Thickened mitral valve leaflets with normal excursion. Mitral annulus and aortic root calcification. Pulmonic valve not visualized. Normal tricuspid valve structure. 09/13 UE/LE duplex: negative for DVT 09/13 bcx: ngtd 09/14 BCx: NTD h/o Staph capitis(CoNS) bacteremia 08/15 08/16 BCx: NG h/o R shoulder abscess 09/18 CT shoulder: No evidence of abscess. 08/20 cx: Proteus, CoNS 09/13 CT shoulder: Since 08/22/2019, previously demonstrated right posterior shoulder superficial wound is largely closed. There is some residual gas and what appears to be scar tissue in the area. No definite abscess currently, although evaluation for such is limited in the absence of IV contrast. Multifocal bilateral pulmonary parenchymal infiltrates, presumably pneumonia, are noted. Extensive heterotopic new bone surrounding the right shoulder is again demonstrated. Correlate with clinical history. Evidence of prior cervical spine fusion surgery. MRSA screen negative HTN FTT Anemia CVA Aphasia G tube malfunction BPH DM Bedbound OA Dementia NH resident DNR Plan: Contine IV vanc # Cont PO Vancomycin 125mg qid #/ Continue Micafungin #3 12/ SP Meropenem #15 09/11 SP cefepime #5 f/u repeat bcx aspiration precaution, elevate HOB G tube care skin care at this point, concerning for infection of L knee prosthetic and/or neck prosthesis. once pneumonia improves, will obtain indium scan to evaluate previous cervical spine fusion surgery site and the R shoulder in the setting of persistent GPC bacteremia. if we obtain indium scan now, likely the lungs will light up. f/u 2d echo Thank you for this consult. [facility] will continue to follow the patient with you. Subjective Allergies: Coded Allergies: HYDROMORPHONE (Unverified Allergy, Unknown, 01/04/18) Subjective afebrile >48hrs no leukocytosis Objective Vital Signs Last 24 Hour Vital Signs Date Time Temp Pulse Resp B/P (MAP) Pulse Ox O2 Delivery O2 Flow Rate FiO2 10/03/19 09:22 Nasal Cannula 2.0 Nasal Cannula 2.0 10/03/19 08:49 105 142/83 10/03/19 08:00 98.1 102 20 137/82 (100) 99 10/03/19 04:00 98.7 106 20 154/96 (115) 99 10/03/19 00:00 98.2 94 19 154/86 (108) 100 10/02/19 21:00 Nasal Cannula 2.0 Nasal Cannula 2.0 10/02/19 20:00 98.5 94 18 140/84 (102) 100 10/02/19 20:00 95 Nasal Cannula 2.0 28 10/02/19 15:27 99.3 98 20 139/81 (100) 94 Height (Feet): 5 Height (Inches): 11.00 Weight (Pounds): 164 Objective General Appearance: cachetic HEENT: normocephalic, atraumatic Respiratory/Chest: chest wall non-tender, normal breath sounds Cardiovascular: normal rate, regular rhythm Abdomen: normal bowel sounds, soft, non tender Genitourinary: normal external genitalia Extremities: no cyanosis Skin: no rash, no lesions Microbiology Date/Time Source Procedure Growth Status 10/01/19 10:10 Blood Blood Culture - Preliminary NO GROWTH AFTER 24 HOURS Resulted 10/01/19 10:00 Blood Blood Culture - Preliminary NO GROWTH AFTER 24 HOURS Resulted Laboratory Tests Test 10/03/19 05:30 White Blood Count 4.6 K/UL (4.8-10.8) L Red Blood Count 2.97 M/UL (4.70-6.10) L Hemoglobin 9.0 G/DL (14.2-18.0) L Hematocrit 27.4 % (42.0-52.0) L Mean Corpuscular Volume 92 FL (80-99) Mean Corpuscular Hemoglobin 30.2 PG (27.0-31.0) Mean Corpuscular Hemoglobin Concent 32.7 G/DL (32.0-36.0) Red Cell Distribution Width 14.4 % (11.6-14.8) Platelet Count 531 K/UL (150-450) H Mean Platelet Volume 6.6 FL (6.5-10.1) Neutrophils (%) (Auto) % (45.0-75.0) Lymphocytes (%) (Auto) % (20.0-45.0) Monocytes (%) (Auto) % (1.0-10.0) Eosinophils (%) (Auto) % (0.0-3.0) Basophils (%) (Auto) % (0.0-2.0) Differential Total Cells Counted 100 Neutrophils % (Manual) 59 % (45-75) Lymphocytes % (Manual) 23 % (20-45) Monocytes % (Manual) 8 % (1-10) Eosinophils % (Manual) 9 % (0-3) H Basophils % (Manual) 1 % (0-2) Band Neutrophils 0 % (0-8) Platelet Estimate Increased H Platelet Morphology Normal Erythrocyte Sedimentation Rate 120 MM/HR (0-20) H Sodium Level 139 MMOL/L (136-145) Potassium Level 4.1 MMOL/L (3.5-5.1) Chloride Level 104 MMOL/L (98-107) Carbon Dioxide Level 27 MMOL/L (21-32) Anion Gap 8 mmol/L (5-15) Blood Urea Nitrogen 14 mg/dL (7-18) Creatinine 0.5 MG/DL (0.55-1.30) L Estimat Glomerular Filtration Rate mL/min (>60) Glucose Level 121 MG/DL (74-106) H Calcium Level 9.2 MG/DL (8.5-10.1) Phosphorus Level 3.5 MG/DL (2.5-4.9) Magnesium Level 1.7 MG/DL (1.8-2.4) L Total Bilirubin 0.2 MG/DL (0.2-1.0) Aspartate Amino Transf (AST/SGOT) 21 U/L (15-37) Alanine Aminotransferase (ALT/SGPT) 17 U/L (12-78) Alkaline Phosphatase 94 U/L (46-116) C-Reactive Protein, Quantitative 1.8 mg/dL (0.00-0.90) H Total Protein 9.0 G/DL (6.4-8.2) H Albumin 2.1 G/DL (3.4-5.0) L Globulin 6.9 g/dL Albumin/Globulin Ratio 0.3 (1.0-2.7) L Current Medications Medications (Trade) Dose Ordered Sig/Nelson Route PRN Reason Start Time Stop Time Status Last Admin Dose Admin Acetaminophen (Tylenol) 650 mg Q4H PRN GT Mild Pain/Temp > 100.5 10/02/19 15:08 11/01/19 15:07 Amlodipine Besylate (Norvasc) 5 mg DAILY GT 10/03/19 09:00 10/07/19 08:59 10/03/19 08:49 Chlorhexidine Gluconate (Clara-Hex 2%) 1 applic DAILY@1999 TOPIC 10/02/19 20:00 10/23/19 19:59 10/02/19 20:46 Clonidine HCl (Catapres Tab) 0.1 mg Q6H PRN ORAL For High Blood Pressure 10/03/19 07:45 11/02/19 07:44 Dextrose (Dextrose 50%) 25 ml Q30M PRN IV Hypoglycemia 10/02/19 15:30 10/06/19 17:59 Dextrose (Dextrose 50%) 50 ml Q30M PRN IV Hypoglycemia 10/02/19 15:30 10/06/19 17:59 Gabapentin (Neurontin) 250 mg TID GT 10/02/19 18:00 10/06/19 19:59 10/03/19 13:37 Heparin Sodium (Porcine) (Heparin 5000 units/ml) 5,000 units EVERY 12 HOURS SUBQ 10/02/19 21:00 10/29/19 20:59 10/03/19 08:50 Insulin Aspart (NovoLOG) Q6HR SUBQ 10/02/19 18:00 10/07/19 00:00 10/03/19 06:08 Micafungin Sodium 100 mg/Sodium Chloride 110 ml @ 110 mls/hr Q24H IVPB 10/03/19 10:00 10/08/19 09:59 10/03/19 11:12 Nitroglycerin (Ntg) 0.4 mg Q5M PRN SL Prn Chest Pain 10/02/19 15:15 10/28/19 15:21 Ondansetron HCl (Zofran) 4 mg Q6H PRN IVP Nausea & Vomiting 10/02/19 15:30 10/28/19 15:22 Polyethylene Glycol (Miralax) 17 gm DAILYPRN PRN GT Constipation 10/02/19 15:09 11/01/19 15:08 Sodium Chloride 1,000 ml @ 75 mls/hr [id number] IV 10/02/19 15:08 11/01/19 15:07 10/02/19 15:27 Vancomycin HCl (Firvanq) 125 mg FOUR TIMES A DAY ORAL 10/02/19 18:00 10/03/19 23:59 10/03/19 13:37 Vancomycin HCl (Vanco rx to dose) 1 ea DAILY PRN MISC Per rx protocol 10/03/19 09:00 10/06/19 15:59 Vancomycin HCl 1 gm/Sodium Chloride 275 ml @ 183.708 mls/hr Q24H IVPB 10/03/19 13:00 10/05/19 12:59 10/03/19 13:39 Avril Zaragoza M.D. Oct 03, 2019 15:22
[2019-10-03 16:00] VITALS: BP 143/89
--- NOTE | 2019-10-03 18:30 | NUR ---
NURSE NOTES: Patient resting,continue to tolerate G-Tube feedings.bed alarm on.
[2019-10-03 20:00] VITALS: BP 143/82
--- NOTE | 2019-10-03 20:00 | NUR ---
HAND-OFF: Report given to HEBER RN.
--- NOTE | 2019-10-03 20:54 | NUR ---
NURSE NOTES: RECEIVED PT FROM SERGIO JOAQUIN. PT IS ASLEEP, AROUSABLE TO VOICE, NON-VERBAL, AAOX1, ON NC 2L, NO ACUTE DISTRESS NOTED. G-TUBE INTACT AND PATENT, NO RESIDUAL, FLUSHING WELL. RUNNING GLUCERNA 1.5 AT 50M/HR. PATIENT IS TOLERATING FEEDING WELL. PEREZ IS INTACT AND PATENT. NO HEMATURIA NOTED. WOUND DRESSINGS INTACT AND DRY. IV ON LEFT FEMORAL TRIPLE LUMEN RUNNING NS 75ML/HR. BED IS LOCKED AND LOW, BED ALARMS ACTIVE, SIDE RAILS UP X2, AND CALL LIGHT IS WITHIN REACH. WILL CONTINUE TO MONITOR.
[2019-10-03] MEDS: Dyna-Hex 2% Top Sol 2oz TOPIC SCH (21:53)
[2019-10-04] VITALS: BP 145/84
[2019-10-04 04:00] VITALS: BP 135/67
[2019-10-04] MEDS: NovoLOG Insulin Flexpen SUBQ SCH ×3 (06:33→12:46)
[2019-10-04 07:15] LABS: ALANINE AMINOTRANSFERASE 20 U/L (12-78); ALBUMIN 2.1 G/DL (3.4-5.0); ALBUMIN/GLOBULIN RATIO 0.3 (1.0-2.7); ALKALINE PHOSPHATASE 88 U/L (46-116); ANION GAP 7 mmol/L (5-15); ASPARTATE AMINO TRANSFERASE 21 U/L (15-37); BILIRUBIN,TOTAL 0.3 MG/DL (0.2-1.0); BLOOD UREA NITROGEN 15 mg/dL (7-18); CALCIUM 9.1 MG/DL (8.5-10.1); CARBON DIOXIDE 27 MMOL/L (21-32); CHLORIDE 105 MMOL/L (98-107); CREATININE 0.6 MG/DL (0.55-1.30); PHOSPHORUS 3.6 MG/DL (2.5-4.9); POTASSIUM 4.3 MMOL/L (3.5-5.1); SODIUM 139 MMOL/L (136-145)
--- NOTE | 2019-10-04 07:19 | NUR ---
HAND-OFF: Report given to SERGIO Hamlin. Patient is in stable condition. Endorsed plan of care.
--- NOTE | 2019-10-04 07:48 | NUR ---
NURSE NOTES: Patient eyes open,patient able to say good morning and stated he is ok when asked.Respirations unlabored.02 on at 2L N/C.Benavidez catheter in place and draining jitendra color urine.IV fluids infusing as ordered.G -tube feedings ongoing as ordered. 5cc of residual noted.HOB elevated.Bed alarm is on.
[2019-10-04 07:55] LABS: BASOPHILS % (AUTO) 0.7 % (0.0-2.0); HEMATOCRIT 26.9 % (42.0-52.0); HEMOGLOBIN 9.3 G/DL (14.2-18.0); LYMPHOCYTES % (AUTO) 24.7 % (20.0-45.0); MEAN CORPUSCULAR VOLUME 91 FL (80-99); NEUTROPHILS % (AUTO) 60.6 % (45.0-75.0); PLATELET COUNT 531 K/UL (150-450); RED BLOOD COUNT 2.97 M/UL (4.70-6.10); RED CELL DISTRIBUTION WIDTH 12.9 % (11.6-14.8); WHITE BLOOD COUNT 5.6 K/UL (4.8-10.8)
[2019-10-04 08:00] VITALS: BP 143/85
[2019-10-04] MEDS: Gabapentin 300 MG/6 ML Soln GT SCH ×2 (08:53→13:27)
[2019-10-04] MEDS: Heparin 5000 units/ml inj SUBQ SCH (08:54)
[2019-10-04] MEDS: Micafungin 100 MG in NS 110 ML IVPB SCH (10:10)
[2019-10-04 12:00] VITALS: BP 148/86
[2019-10-04] MEDS ORDERED: MYCAMINE100 M1 IVPB (12:33)
--- NOTE | 2019-10-04 12:33 | Infectious Diseases Prog Note ---
Assessment/Plan Assessment/Plan 79yo gentleman with PMH below [facility] and report of [facility]. Pt was recently admitted at this hospital 08/15-08/22 for sepsis 2/2 R shoulder abscess. Pt was discharged on zosyn and vancomycin. Pt unable to provide history. [facility] records, they were concerned for pneumonia. Pt was started on levaquin/flagyl early August. Fungemia REcurrent Gram positive bacteremia, ?contaminant -09/29 10/28 william parasilopsis, 10/28 CONS; 10/01 Bcx NTD, 10/02 Bcx NTD -10/03 2d echo: no vegetations Fever; low grade;SP Leukopenia, SP No lactic acidosis -09/24 u/a wbc 5-10; ucx <10k yeast Bcx Neg Pseudomonas PNA, sp Rx -09/24 CXR: Interval improvement in the left lower lobe and bilateral upper lobe interstitial thickening. There is a persistent heterogeneous retrocardiac airspace opacity. No pleural effusion or pneumothorax. Heart size is normal. -09/18 CT chest: Combination of atelectasis and dense pneumonia involving the left lower lobe. Please correlate clinically. Additional patchy groundglass infiltrates in both upper lobes also present. Atherosclerotic disease. Acute hypoxic respiratory failure on nasal cannula supplement CXR: Pneumonia versus atelectasis at the left lung base. sputum cx: Pseudomonas 09/11 CXR: New right suprahilar and increasing left basilar infiltrates, since prior study of 5 days earlier 09/15 CXR: Increased left mid and lower lung patchy atelectasis and/or consolidation Unlikely UTI UA negative Persistent CoNS bacteremia, albeit diff species. 2/2 pressure ulcers? shoulder abscess? cervical spine prosthetic infection? 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 Thickened mitral valve leaflets with normal excursion. Mitral annulus and aortic root calcification. Pulmonic valve not visualized. Normal tricuspid valve structure. 09/13 UE/LE duplex: negative for DVT 09/13 bcx: ngtd 09/14 BCx: NTD h/o Staph capitis(CoNS) bacteremia 08/15 08/16 BCx: NG h/o R shoulder abscess 09/18 CT shoulder: No evidence of abscess. 08/20 cx: Proteus, CoNS 09/13 CT shoulder: Since 08/22/2019, previously demonstrated right posterior shoulder superficial wound is largely closed. There is some residual gas and what appears to be scar tissue in the area. No definite abscess currently, although evaluation for such is limited in the absence of IV contrast. Multifocal bilateral pulmonary parenchymal infiltrates, presumably pneumonia, are noted. Extensive heterotopic new bone surrounding the right shoulder is again demonstrated. Correlate with clinical history. Evidence of prior cervical spine fusion surgery. MRSA screen negative HTN FTT Anemia CVA Aphasia G tube malfunction BPH DM Bedbound OA Dementia NH resident DNR Plan: Continue Micafungin #4/10/03 SP IV Vancomycin #28, PO Vancomycin #14 09/25 SP Meropenem #15 09/11 SP cefepime #5 f/u repeat bcx aspiration precaution, elevate HOB G tube care skin care Thank you for this consult. [facility] will continue to follow the patient with you. Subjective Allergies: Coded Allergies: HYDROMORPHONE (Unverified Allergy, Unknown, 01/04/18) Subjective afebrile no leukocytosis Objective Vital Signs Last 24 Hour Vital Signs Date Time Temp Pulse Resp B/P (MAP) Pulse Ox O2 Delivery O2 Flow Rate FiO2 10/04/19 09:53 Nasal Cannula 2.0 Nasal Cannula 2.0 10/04/19 09:34 96 Nasal Cannula 2.0 28 10/04/19 08:53 101 144/88 10/04/19 08:00 99.2 89 20 143/85 (104) 100 10/04/19 04:00 98.4 83 19 135/67 (89) 98 10/04/19 00:00 99.0 103 18 145/84 (104) 98 10/03/19 21:00 Nasal Cannula 2.0 Nasal Cannula 2.0 10/03/19 20:00 99.7 107 20 143/82 (102) 97 10/03/19 19:56 97 Nasal Cannula 2.0 28 10/03/19 16:00 99.1 106 18 143/89 (107) 96 Height (Feet): 5 Height (Inches): 11.00 Weight (Pounds): 163 Objective General Appearance: cachetic HEENT: normocephalic, atraumatic Respiratory/Chest: chest wall non-tender, normal breath sounds Cardiovascular: normal rate, regular rhythm Abdomen: normal bowel sounds, soft, non tender Genitourinary: normal external genitalia Extremities: no cyanosis Skin: no rash, no lesions Microbiology Date/Time Source Procedure Growth Status 10/02/19 12:15 Blood Blood Culture - Preliminary NO GROWTH AFTER 24 HOURS Resulted 10/02/19 12:05 Blood Blood Culture - Preliminary NO GROWTH AFTER 24 HOURS Resulted Laboratory Tests Test 10/04/19 05:40 White Blood Count 5.6 K/UL (4.8-10.8) Red Blood Count 2.97 M/UL (4.70-6.10) L Hemoglobin 9.3 G/DL (14.2-18.0) L Hematocrit 26.9 % (42.0-52.0) L Mean Corpuscular Volume 91 FL (80-99) Mean Corpuscular Hemoglobin 31.4 PG (27.0-31.0) H Mean Corpuscular Hemoglobin Concent 34.5 G/DL (32.0-36.0) Red Cell Distribution Width 12.9 % (11.6-14.8) Platelet Count 531 K/UL (150-450) H Mean Platelet Volume 6.4 FL (6.5-10.1) L Neutrophils (%) (Auto) 60.6 % (45.0-75.0) Lymphocytes (%) (Auto) 24.7 % (20.0-45.0) Monocytes (%) (Auto) 7.0 % (1.0-10.0) Eosinophils (%) (Auto) 7.0 % (0.0-3.0) H Basophils (%) (Auto) 0.7 % (0.0-2.0) Sodium Level 139 MMOL/L (136-145) Potassium Level 4.3 MMOL/L (3.5-5.1) Chloride Level 105 MMOL/L (98-107) Carbon Dioxide Level 27 MMOL/L (21-32) Anion Gap 7 mmol/L (5-15) Blood Urea Nitrogen 15 mg/dL (7-18) Creatinine 0.6 MG/DL (0.55-1.30) Estimat Glomerular Filtration Rate mL/min (>60) Glucose Level 114 MG/DL (74-106) H Calcium Level 9.1 MG/DL (8.5-10.1) Phosphorus Level 3.6 MG/DL (2.5-4.9) Magnesium Level 1.8 MG/DL (1.8-2.4) Total Bilirubin 0.3 MG/DL (0.2-1.0) Aspartate Amino Transf (AST/SGOT) 21 U/L (15-37) Alanine Aminotransferase (ALT/SGPT) 20 U/L (12-78) Alkaline Phosphatase 88 U/L (46-116) Total Protein 9.0 G/DL (6.4-8.2) H Albumin 2.1 G/DL (3.4-5.0) L Globulin 6.9 g/dL Albumin/Globulin Ratio 0.3 (1.0-2.7) L Current Medications Medications (Trade) Dose Ordered Sig/Nelson Route PRN Reason Start Time Stop Time Status Last Admin Dose Admin Acetaminophen (Tylenol) 650 mg Q4H PRN GT Mild Pain/Temp > 100.5 10/02/19 15:08 11/01/19 15:07 Amlodipine Besylate (Norvasc) 5 mg DAILY GT 10/03/19 09:00 10/07/19 08:59 10/04/19 08:53 Chlorhexidine Gluconate (Clara-Hex 2%) 1 applic DAILY@1999 TOPIC 10/02/19 20:00 10/23/19 19:59 10/03/19 21:53 Clonidine HCl (Catapres Tab) 0.1 mg Q6H PRN ORAL For High Blood Pressure 10/03/19 07:45 11/02/19 07:44 Dextrose (Dextrose 50%) 25 ml Q30M PRN IV Hypoglycemia 10/02/19 15:30 10/06/19 17:59 Dextrose (Dextrose 50%) 50 ml Q30M PRN IV Hypoglycemia 10/02/19 15:30 10/06/19 17:59 Gabapentin (Neurontin) 250 mg TID GT 10/02/19 18:00 10/06/19 19:59 10/04/19 08:53 Heparin Sodium (Porcine) (Heparin 5000 units/ml) 5,000 units EVERY 12 HOURS SUBQ 10/02/19 21:00 10/29/19 20:59 12/11/19 08:54 Insulin Aspart (NovoLOG) Q6HR SUBQ 10/02/19 18:00 10/07/19 00:00 10/04/19 06:33 Micafungin Sodium 100 mg/Sodium Chloride 110 ml @ 110 mls/hr Q24H IVPB 10/03/19 10:00 10/08/19 09:59 10/04/19 10:10 Nitroglycerin (Ntg) 0.4 mg Q5M PRN SL Prn Chest Pain 10/02/19 15:15 10/28/19 15:21 Ondansetron HCl (Zofran) 4 mg Q6H PRN IVP Nausea & Vomiting 10/02/19 15:30 10/28/19 15:22 Polyethylene Glycol (Miralax) 17 gm DAILYPRN PRN GT Constipation 10/02/19 15:09 11/01/19 15:08 Sodium Chloride 1,000 ml @ 75 mls/hr [id number] IV 10/02/19 15:08 11/01/19 15:07 10/04/19 06:34 Vancomycin HCl (Vanco rx to dose) 1 ea DAILY PRN MISC Per rx protocol 10/03/19 09:00 10/06/19 15:59 Vancomycin HCl 1 gm/Sodium Chloride 275 ml @ 183.708 mls/hr Q24H IVPB 10/03/19 13:00 10/05/19 12:59 10/03/19 13:39 Avril Zaragoza M.D. Oct 04, 2019 12:32
--- NOTE | 2019-10-04 12:35 | Pulmonology Progress Note ---
Assessment/Plan Problems: (1) Sepsis (2) Healthcare-associated pneumonia (3) Tachycardia (4) C. difficile colitis (5) At high risk for aspiration (6) History of CVA (cerebrovascular accident) (7) Advanced dementia (8) G tube feedings (9) HTN (hypertension) Assessment/Plan afebrile yesterday still on face mask Keep left chest elevated respiratory treatment titrate fio2 to sat of 92% aspiration precaution dvt prophylaxis d/w dr crespo, pt will need 10 more days of Micafungin. dc medication are done All medications and treatment were reviewed.. Subjective Interval Events: no new complains Allergies: Coded Allergies: HYDROMORPHONE (Unverified Allergy, Unknown, 01/04/18) Objective Last 24 Hour Vital Signs Date Time Temp Pulse Resp B/P (MAP) Pulse Ox O2 Delivery O2 Flow Rate FiO2 10/04/19 09:53 Nasal Cannula 2.0 Nasal Cannula 2.0 10/04/19 09:34 96 Nasal Cannula 2.0 28 10/04/19 08:53 101 144/88 10/04/19 08:00 99.2 89 20 143/85 (104) 100 10/04/19 04:00 98.4 83 19 135/67 (89) 98 10/04/19 00:00 99.0 103 18 145/84 (104) 98 10/03/19 21:00 Nasal Cannula 2.0 Nasal Cannula 2.0 10/03/19 20:00 99.7 107 20 143/82 (102) 97 10/03/19 19:56 97 Nasal Cannula 2.0 28 10/03/19 16:00 99.1 106 18 143/89 (107) 96 Intake and Output 10/03/19 10/04/19 18:59 06:59 Intake Total 795 ml 1650 ml Output Total 2000 ml Balance -1205 ml 1650 ml Free Water 220 ml 250 ml IV Total 75 ml 900 ml Tube Feeding 500 ml 500 ml Output Urine Total 2000 ml Objective General Appearance: cachetic HEENT: normocephalic, atraumatic Respiratory/Chest: chest wall non-tender, normal breath sounds Cardiovascular: normal rate, regular rhythm Abdomen: normal bowel sounds, soft, non tender Genitourinary: normal external genitalia Extremities: no cyanosis Skin: no rash, no lesions Microbiology Date/Time Source Procedure Growth Status 10/02/19 12:15 Blood Blood Culture - Preliminary NO GROWTH AFTER 24 HOURS Resulted 10/02/19 12:05 Blood Blood Culture - Preliminary NO GROWTH AFTER 24 HOURS Resulted Laboratory Tests 10/04/19 05:40: White Blood Count 5.6, Red Blood Count 2.97L, Hemoglobin 9.3L, Hematocrit 26.9L , Mean Corpuscular Volume 91, Mean Corpuscular Hemoglobin 31.4H, Mean Corpuscular Hemoglobin Concent 34.5, Red Cell Distribution Width 12.9, Platelet Count 531H, Mean Platelet Volume 6.4L, Neutrophils (%) (Auto) 60.6, Lymphocytes (%) (Auto) 24.7, Monocytes (%) (Auto) 7.0, Eosinophils (%) (Auto) 7.0H, Basophils (%) (Auto) 0.7, Sodium Level 139, Potassium Level 4.3, Chloride Level 105, Carbon Dioxide Level 27, Anion Gap 7, Blood Urea Nitrogen 15, Creatinine 0.6, Estimat Glomerular Filtration Rate , Glucose Level 114H, Calcium Level 9.1 , Phosphorus Level 3.6, Magnesium Level 1.8, Total Bilirubin 0.3, Aspartate Amino Transf (AST/SGOT) 21, Alanine Aminotransferase (ALT/SGPT) 20, Alkaline Phosphatase 88, Total Protein 9.0H, Albumin 2.1L, Globulin 6.9, Albumin/ Globulin Ratio 0.3L Current Medications Medications (Trade) Dose Ordered Sig/Nelson Route PRN Reason Start Time Stop Time Status Last Admin Dose Admin Acetaminophen (Tylenol) 650 mg Q4H PRN GT Mild Pain/Temp > 100.5 10/02/19 15:08 11/01/19 15:07 Amlodipine Besylate (Norvasc) 5 mg DAILY GT 10/03/19 09:00 10/07/19 08:59 10/04/19 08:53 Chlorhexidine Gluconate (Clara-Hex 2%) 1 applic DAILY@1999 TOPIC 10/02/19 20:00 10/23/19 19:59 10/03/19 21:53 Clonidine HCl (Catapres Tab) 0.1 mg Q6H PRN ORAL For High Blood Pressure 10/03/19 07:45 11/02/19 07:44 Dextrose (Dextrose 50%) 25 ml Q30M PRN IV Hypoglycemia 10/02/19 15:30 12/13/19 17:59 Dextrose (Dextrose 50%) 50 ml Q30M PRN IV Hypoglycemia 10/02/19 15:30 10/06/19 17:59 Gabapentin (Neurontin) 250 mg TID GT 10/02/19 18:00 10/06/19 19:59 10/04/19 08:53 Heparin Sodium (Porcine) (Heparin 5000 units/ml) 5,000 units EVERY 12 HOURS SUBQ 10/02/19 21:00 10/29/19 20:59 10/04/19 08:54 Insulin Aspart (NovoLOG) Q6HR SUBQ 10/02/19 18:00 10/07/19 00:00 10/04/19 06:33 Micafungin Sodium 100 mg/Sodium Chloride 110 ml @ 110 mls/hr Q24H IVPB 10/03/19 10:00 10/08/19 09:59 10/04/19 10:10 Nitroglycerin (Ntg) 0.4 mg Q5M PRN SL Prn Chest Pain 10/02/19 15:15 10/28/19 15:21 Ondansetron HCl (Zofran) 4 mg Q6H PRN IVP Nausea & Vomiting 10/02/19 15:30 10/28/19 15:22 Polyethylene Glycol (Miralax) 17 gm DAILYPRN PRN GT Constipation 10/02/19 15:09 11/01/19 15:08 Sodium Chloride 1,000 ml @ 75 mls/hr [id number] IV 10/02/19 15:08 11/01/19 15:07 10/04/19 06:34 Sowmya Abbasi MD Oct 04, 2019 12:35
--- NOTE | 2019-10-04 13:26 | NUR ---
DISCHARGE PLANNING DISCHARGE ORDER NOTED Patient has been accepted to; [facility] [address], [place] [address] Bed: 19-A Fpc [phone] for Nurse to Nurse report [facility] ETA for transportation: 15:00
--- NOTE | 2019-10-04 15:06 | NUR ---
NURSE NOTES: Report given to [place] at [facility]. patient daughter Gisselle Nur aware of patient discharge and agree with transfer.
--- NOTE | 2019-10-04 16:00 | NUR ---
NURSE NOTES: Called by Nurse Burglar Alarm Mechanic to assist in removal of L-fem TLC. Primary nurse at bedside during removal, no acute bleeding from site after removal; reinforced site with 4x4 and suresite transparent film. Charge nurse of 4E made aware of removal.
--- NOTE | 2019-10-04 16:20 | NUR ---
NURSE NOTES: Discharge as ordered [facility] personnel.G-tube flushed .Dressing to the left groin clean and intact.Triple lumen was dcd.patient daughter was here to also accompany patient.
--- NOTE | 2019-10-04 19:46 | Cardiology Report ---
APPROVED REPORT EXAM: Two-dimensional and M-mode echocardiogram with Doppler and color Doppler. M-Mode DIMENSIONS IVSd0.8 (0.7-1.1cm)Left Atrium (MM)3.5 (1.6-4.0cm) LVDd4.2 (3.5-5.6cm)Aortic Root3.5 (2.0-3.7cm) PWd0.8 (0.7-1.1cm)Aortic Cusp Exc.2.1 (1.5-2.0cm) IVSs1.5 cm LVDs2.0 (2.5-4.0cm) PWs1.5 cm Technically difficult study due to pts contarcted arm . Normal left ventricular chamber size, systolic function and wall motion to extent visualized. Left ventricular ejection fraction estimated to be 60 %. The proximal septum appear somewhat hypertropied No pericardial effusion. All other cardiac chamber sizes are within normal limits. Aortic valve calcification with normal cusp excursion . Mildly thickened mitral valve leaflets with normal excursion. Mild mitral annulus and aortic root calcification. Pulmonic valve not well visualized. IVC at normal size with physiologic collapse. A color flow and spectral Doppler study was performed and revealed: No aortic insufficiency . Mitral diastolic velocities suggest reduced left ventricular relaxation c/w mild LV diastolic dysfunction (Grade I ) Trace mitral regurgitation. Trace tricuspid regurgitation. Tricuspid systolic velocities suggests peak right ventricular systolic pressure of 12mmHg.
--- NOTE | 2019-10-05 09:44 | Discharge Summary ---
Discharge Summary Discharge Summary _ DATE OF ADMISSION: 09/06/2019 DATE OF DISCHARGE: 10/04/2019 DISCHARGED BY: Dr. Abbasi REASON FOR ADMISSION: 79 years old male with past medical history of multiply CVA, dysphagia, G-tube feeding, bedbound, senior care resident, was brought by paramedics with a chief complaint of 2 days of hypoxemia . There was also report of cough. Patient required supplemental oxygen to keep appropriate pulse oximetry. No lactic acidosis. Low-grade fever , tachycardia , leukopenia with WBC 3.3 Patient with DNR/DNI status. Chest x-ray revealed pneumonia in the left lung base. Patient subsequently admitted to telemetry floor for further management. CONSULTANTS: ID specialist Dr. Zaragoza surgery Dr. Arias plastic surgery Dr. Marcelino [facility]: Patient was admitted to telemetry floor. Patient started on empiric antibiotic as per ID recommendation. Supplemental oxygen provided and titrated to keep pulse oximetry above 92%. During the stay in the hospital patient was on Venturi mask and then was able to be weaned to nasal cannula prior to discharge. Pulmonary toilet with bronchodilator therapy via [facility] provided [id number] and as needed. DVT prophylaxis provided. Venous duplex bilateral upper and lower extremity revealed no acute DVT. CT chest revealed combination of atelectasis and dense pneumonia, involving left lower lobe. Patient was followed-up with chest x-ray to ensure resolution of pneumonia. Initial blood culture revealed Staph epidermidis. Urine culture was negative. Repeated blood culture revealed Staph hominis. Sputum culture revealed Pseudomonas aeruginosa. Stool for C. difficile was negative. Antibiotic continued as per ID specialist recommendation. Echocardiogram revealed preserved ejection fraction of 60 to 65% with mild left ventricular hypertrophy. No evidence of wall motion abnormality to the extent visualized. No evidence of vegetation. Patient remained afebrile , no leukocytosis. Patient was tachycardic. Patient was continued on the IV fluids. Renal parameters and electrolytes were closely monitored. Electrolytes corrected as needed , and nephrotoxic's were avoided. Creatinine remained stable. Magnesium repleted. Patient was followed-up with chest x-ray. Strict aspiration precautions maintained. Speech therapist after conducting swallow evaluation, recommended continue with nonoral feeding. G-tube feeding continued with tube feeding formula , goal rate and protein supplements as recommended by home health registered nurse. Pain management was addressed as needed. Blood pressure was managed with calcium channel nolan. Blood sugar was managed with sliding scale of insulin. Wound care provided. Bowel regimen instituted. Supportive care provided. Patient had persistent gram-positive bacteremia, albeit different species. Patient had no central line, no pacemaker. 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 Repeated echocardiogram revealed preserved ejection fracture . No evidence of wall motion abnormality to the extent visualized. No evidence of vegetation. Right ventricular systolic pressure of 12. CT scan of the right shoulder revealed no evidence of abscess. No erosion or lytic abnormality. Small skin defect posteriorly near the scapular spine , presumably the site of previous incision and drainage. Repeated blood culture 09/13, 09/14 and 09/24 were negative. Stool for C. difficile on was positive for C. difficile. Patient was placed at the contact isolation and started on treatment for C. difficile. Repeated urine culture 09/24 showed Connie Blood culture on revealed Connie and Staph capitis . Repeated blood culture on 10/01 and 10/02 were negative. Patient remained afebrile . Intermittent fevers resolved. Patient was started on micafungin . Patient completed treatment for C. difficile infection and pneumonia. ID specialist recommended to continue micafungin for total of 14-day to complete the course at the facility. Patient completed treatment with IV vancomycin for 28 days for recurrent gram positive bacteremia. Patient was hypotensive and required placement of central line ( for possible pressor initiation), which was placed by surgeon on 09/28. Blood pressure responded to the IV fluids ; no need for pressor . Hemodynamic status was closely monitored. Blood pressures stabilized. Patient slowly restarted on antihypertensive. Blood sugar was managed with sliding scale of insulin. Plastic surgeon seen and evaluated patient for present on admission wounds. Patient showed intermittent progress in wound healing. Plastic surgeon recommended to offload sacrococcyx area and continue with wound care. Nutritional support provided. No other surgical intervention was necessarily at this time. Supportive care provided. Bowel regimen instituted. Placement was challenging. Placement was finally found at the senior living facility as shelter . Patient was stable for transfer. FINAL DIAGNOSES: Acute hypoxemic respiratory failure Sepsis Healthcare associated pneumonia with Pseudomonas , status post treatment Fungemia Recurrent gram-positive bacteremia C. difficile positive, status post treatment History of right shoulder abscess Aspiration risk Functional quadriplegia History of CVA Advanced dementia Dysphagia , feeding by G-tube Severe protein calorie malnutrition Hypertension Diabetes mellitus Coronary artery disease with history of [place] Sacral decubitus ulcer st 3, left elbow ulcer-present on admission, DISCHARGE MEDICATIONS: See Medication Reconciliation list. DISCHARGE INSTRUCTIONS: Patient was discharged to [facility] as shelter. Tiera Pat NP Oct 05, 2019 09:44
== END 2019-10-04 16:57 | DRG 177 ==
LOC: EDBD 13:32 → EMR 14:14 → 2E 15:07 → EDBEDREQ 15:47 → 4E 09-14 00:51 → 2E 09-28 14:27 → 4E 10-02 15:00
PROC: 06HN33Z Insertion of Infusion Device into Left Femoral Vein, Percutaneous Approach (ICD-10-PCS; principal; 2019-09-28)
DX: J15.1 Pneumonia due to Pseudomonas (principal); L89.153 Pressure ulcer of sacral region, stage 3; J96.01 Acute respiratory failure with hypoxia; E43 Unspecified severe protein-calorie malnutrition; G82.50 Quadriplegia, unspecified; A41.9 Sepsis, unspecified organism; A04.72 Enterocolitis due to Clostridium difficile, not specified as recurrent; I10 Essential (primary) hypertension; F03.90 Unspecified dementia, unspecified severity, without behavioral disturbance, psychotic disturbance, mood disturbance, and anxiety; E11.9 Type 2 diabetes mellitus without complications; Z68.22 Body mass index [BMI] 22.0-22.9, adult; Z93.1 Gastrostomy status; Z74.01 Bed confinement status; Z66 Do not resuscitate; I69.920 Aphasia following unspecified cerebrovascular disease; I69.965 Other paralytic syndrome following unspecified cerebrovascular disease, bilateral; I25.2 Old myocardial infarction; N40.0 Benign prostatic hyperplasia without lower urinary tract symptoms; R62.7 Adult failure to thrive; L98.429 Non-pressure chronic ulcer of back with unspecified severity; L89.029 Pressure ulcer of left elbow, unspecified stage; I25.10 Atherosclerotic heart disease of native coronary artery without angina pectoris
CPT/HCPCS: 36415; 36600; 71045; 71260; 74230; 80048; 80053; 80069; 80202; 81001; 81003; 82803; 82962; 83605; 83735; 83880; 84100; 85007; 85025; 85651; 86140; 87040; 87070; 87081; 87086; 87181; 87205; 87324; 93005; 93306; 93970; 94664; 96365; 96367; 96368; 99285; J1815; J2405; J7030